=== PATIENT | male | born 1960 | race Caucasian/White ===

== ENCOUNTER 2023-03-09 09:40 | Outpatient (OUT) | payer MEDICARE, MEDICAID, SELFPAY ==
--- NOTE | 2023-03-09 10:47 | CA_ITS ---
Patient Name: WILVER CAPPS MR#: [id number] : 1960 Exam Date: 03/09/2023 Ordering Doctor: DR JULIANO HUNT M.D. ECHOCARDIOGRAM REPORT PROCEDURE: CA ECHO DOPPLER COMPLETE INDICATIONS: Shortness of breath COMPARISON: None. DESCRIPTION: COMPLETE ECHOCARDIOGRAM Real-time transthoracic echocardiography with 2D, M-mode, spectral and color flow Doppler performed. QUALITY: Technical quality was adequate. LEFT VENTRICLE: Normal chamber size. Moderate concentric left ventricular hypertrophy. Global left ventricular systolic function is normal. LV EF: Estimated left ventricular ejection fraction is 55-60% DIASTOLIC: ATRIAL SEPTUM: LEFT ATRIUM: Normal chamber size. RIGHT ATRIUM: Mild dilatation. RIGHT VENTRICLE: Normal chamber size. Normal right ventricular systolic function. TRICUSPID VALVE: Normal mobility and thickness. No stenosis with trivial regurgitation. Unable to assess right-sided pressures due to lack of measurable tricuspid regurgitation. MITRAL VALVE: Normal mobility and thickness. No evidence of mitral valve stenosis. There is no mitral annular calcification. No mitral regurgitation. AORTIC VALVE: Normal trileaflet appearance. No visible sclerosis. Normal leaflet mobility. No evidence of aortic valve stenosis. Trivial aortic regurgitation. AORTIC ROOT: Normal diameter and appearance. PULMONIC VALVE: Normal thickness and mobility. No stenosis. No regurgitation. PERICARDIUM: No evidence of pericardial effusion. IVC: Collapses with inspirations. Normal size. PLEURA: CONCLUSION: 1. Moderate concentric left ventricular hypertrophy with normal systolic function. LVEF is 55 to 60%. 2. Normal right ventricular size and systolic function. 3. No significant valvular dysfunction. 4. Unable to assess right-sided pressures due to lack of measurable tricuspid regurgitation. Adult Echocardiography Procedure Report Left Ventricle LVEDD (3.7 - 5.6 cm): 4.13 cm LVESD (2.2 - 4.0 cm): 2.87 cm LVIVS thickness (0.6 - 1.2 cm): 1.92 cm LVPW thickness (0.5 - 1.0 cm): 1.52 cm e': 0.09 m/s E - e': 6.23 LVOT Max Gradient: 4.94 mm[Hg] LVOT Area (cm2): 1.11 m/s Peak Velocity (LVOT): 1.11 m/s Mean Velocity (LVOT): 0.64 m/s LVOT Diameter 2.39 cm Left Ventricular Ejection Fraction: 55-60 % Left Atrium LA Volume Index (2D A2C): 24.62 ml/m2 Left Atrium Systolic Dimension: 3.82 cm Mitral Valve MV E to A Ratio: 0.80 Mitral Valve A-Wave Peak Velocity: 0.74 m/s Mitral Valve E-Wave Peak Velocity: 0.59 m/s Right Ventricle RV Internal Diastolic Dimension: 3.28 cm Aorta AO Root Diam: 3.71 cm Ascending Ao Diam: 3.58 cm Aortic Valve AoV Area (Peak Colin): 3.58 cm2, 3.58 cm2 AoV Area (VTI): 3.10 cm2, 3.10 cm2 Peak Velocity(Antegrade Flow): 1.39 m/s Peak Gradient(Antegrade Flow): 7.71 mm[Hg] Mean Velocity(Antegrade Flow): 0.90 m/s Mean Gradient(Antegrade Flow): 3.80 mm[Hg] Velocity Time Integral: 28.08 cm Tricuspid Valve Peak Velocity (Regurgitant Flow): 1.41 m/s, 1.42 m/s Pulmonic Valve Peak Velocity: 0.98 m/s Peak Gradient: 3.36 mm[Hg], 4.32 mm[Hg] Right Atrium Right Atrium Systolic Pressure: 73.78 ml, 73.78 ml Dictated by: Juliano Hunt M.D. on 03/10/2023 at 18:39 Approved by: Juliano Hunt M.D. on 03/10/2023 at 18:46
== END 2023-03-09 09:41 | disposition home or self-care (01) ==
LOC: CARD 09:40
PROVIDERS: PCP Family Medicine; Visit Provider Internal Medicine Interventional Cardiology
DX: R06.02 Shortness of breath (principal); I51.7 Cardiomegaly
CPT/HCPCS: 93306

== ENCOUNTER 2023-03-09 10:48 | Outpatient (OUT) | payer MEDICARE, MEDICAID, SELFPAY ==
[2023-03-09 11:18] LABS: Basophils Absolute Auto 0.1 10^3/uL (0.0-0.1); Basophils Percent Auto 0.7 % (0.2-2.0); Eosinophils Absolute Auto 0.2 10^3/uL (0.0-0.7); Eosinophils Percent Auto 1.8 % (0.9-7.0); Hematocrit 46.5 % (42.0-54.0); Hemoglobin 16.1 g/dL (14.0-18.0); Immature Granulocytes Abs Auto 0.03 10^3/uL (0.00-0.03); Immature Granulocytes Pct Auto 0.4 % (0.0-0.5); Lymphocytes Absolute Auto 1.3 10^3/uL (1.2-3.8); Lymphocytes Percent Auto 15.7 % (20.5-60.0); Mean Corpuscular HGB Conc 34.6 g/dL (29.9-35.2); Mean Corpuscular Hemoglobin 33.8 pg (25.9-34.0); Mean Corpuscular Volume 97.7 fL (80.0-94.0); Mean Platelet Volume 9.7 fL (9.5-13.5); Monocytes Absolute Auto 0.4 10^3/uL (0.3-0.8); Monocytes Percent Auto 5.3 % (1.7-12.0); Neutrophils Absolute Auto 6.3 10^3/uL (1.4-6.5); Neutrophils Percent Auto 76.1 % (43.0-75.0); Platelet Count 259 10^3/uL (150-450); Red Blood Count 4.76 10^6/uL (4.70-6.10); Red Cell Distribution Width 13.9 % (11.0-15.0); White Blood Count 8.3 10^3/uL (4.0-11.0)
[2023-03-09 11:49] LABS: Estimated Average Glucose 275 mg/dL; Glycohemoglobin A1C 11.2 % (4.5-6.2)
[2023-03-09 12:18] LABS: Microalbumin Urine Random <1.3 mg/dL (<=30.0)
[2023-03-09 13:01] LABS: Anion Gap 14.1; BUN Creatinine Ratio 13.9; Calcium 9.2 mg/dL (8.5-10.1); Carbon Dioxide 29.4 mmol/L (21.0-32.0); Chloride 98 mmol/L (98-107); Estimated GFR (African America >60 (>=60); Estimated GFR (Non-African Ame 53 (>=60); Glucose 432 mg/dL (74-106); Potassium 3.5 mmol/L (3.5-5.1); Sodium 138 mmol/L (136-145)
[2023-03-09 13:18] LABS: Chol HDL Ratio 2.5; Cholesterol 159 mg/dL (<=200); HDL Cholesterol 63 mg/dL (40-60); Triglycerides 188 mg/dL (<=150); VLDL CHOLESTEROL 37.6 mg/dL
[2023-03-09 13:25] LABS: Prostate Specific Antigen Scrn 0.94 ng/mL (<=4.00)
[2023-03-09 13:31] LABS: Alanine Aminotransferase 21 U/L (16-63); Albumin Globulin Ratio 0.7; Albumin Level 3.3 g/dL (3.4-5.0); Alkaline Phosphatase 165 U/L (46-116); Aspartate Amino Transferase 14 U/L (15-37); Bilirubin Direct 0.3 mg/dL (0.0-0.2); Bilirubin Total 1.6 mg/dL (0.2-1.0); Thyroid Stimulating Hormone 1.493 uIU/mL (0.358-3.740); Total Protein 8.3 g/dL (6.4-8.2)
== END 2023-03-09 10:49 | disposition home or self-care (01) ==
LOC: LAB 10:50
PROVIDERS: PCP Family Medicine; Visit Provider Family Medicine
DX: E11.65 Type 2 diabetes mellitus with hyperglycemia (principal); Z79.899 Other long term (current) drug therapy; E66.01 Morbid (severe) obesity due to excess calories; Z12.5 Encounter for screening for malignant neoplasm of prostate; N18.31 Chronic kidney disease, stage 3a
CPT/HCPCS: 36415; 80048; 80061; 80076; 82043; 82306; 83036; 84443; 85025; G0103

== ENCOUNTER 2024-12-07 12:03 | Outpatient (OUT) | payer MEDICARE, MEDICAID, SELFPAY ==
--- OUTSIDE RECORDS SUMMARY | 2024-11-24 14:00 | XMS_ITS | Encounter Summary ---
Author Organization [facility] Address [address] [place] [address] Care Team Providers Care Beef Pusher Name Role Phone Davion Pritchard MD Unavailable Davion Pritchard MD Primary Care Provider [phone] Reason for Referral * Other Medical (Routine) - AuthorizedSpecialtyDiagnoses / ProceduresReferred By ContactReferred To ContactNeurology Diagnoses Numbness and tingling in right hand Procedures EMG AND NERVE CONDUCTION STUDY Alvino Bryson NP [address] [place] [address] Phone: tel: fax: Lili Buenrostro, [address] [address] Phone: tel: fax: Referral IDStatusReasonStart DateExpiration DateVisits RequestedVisits [id number]/16/20254/ Reason for Visit * ReasonCommentsPain Encounter Details DateTypeDepartmentCare Team (Latest Contact Info)Qqqmfdawuxk01/16/2025 2:00 PM EDTOffice Visit [facility] [address] [place] [address] Alvino Bryson NP [address] [place] [address] Numbness and tingling in right hand Social History Tobacco UseTypesPacks/DayYears UsedDateSmoking Tobacco: NeverSmokeless Tobacco: NeverPHQ-2AnswerDate RecordedPatient Health Questionnaire-2 [id number] and Gender InformationValueDate RecordedSex Assigned at BirthNot on fileLegal ThvHmjw5604/23/2022 6:46 PM EDTGender IdentityNot on fileSexual OrientationNot on filedocumented as of this encounter Progress Notes * Alvino Byrson NP - 11/24/2024 2:00 PM EDT Images from the original note were not included. NAME: Boo Chavira : 1960 HISTORY OF PRESENT ILLNESS: NEW PT Boo Chavira is an 64 y.o. @ male. (NEW PT) DR PRITCHARD REFERRAL. RT WRIST PAIN FOR A WHILE. CONTINUES TO GET WORSE. PAIN IN WRIST. NO PAIN MEDS. DROPPING THINGS, DIFFICULTY GRIPPING. CONSTANT N/T IN THUMB, IF, MF AND RF. HAND GETS COLD. WAKES AT HS. RT HANDED. HERE WITH CAREGIVER. PAST MEDICAL HISTORY: Medical History[1] PAST SURGICAL HISTORY: Surgical History[2] SOCIAL HISTORY: Social History Occupational History Not on file Tobacco Use Smoking status: Never Smokeless tobacco: Never Vaping Use Vaping status: Never Used Substance and Sexual Activity Alcohol use: Not on file Drug use: Not on file Sexual activity: Not on file ALLERGIES: Allergies[3] HOME MEDICATIONS: Current Outpatient Medications Medication Instructions atorvastatin (LIPITOR) 40 mg, Oral, Daily Blood Glucose Monitoring Suppl (Blood Glucose Monitor System) w/Device kit 1 each, Does not apply, Daily clonazePAM (KLONOPIN) 2 mg, Oral, 3 times daily PRN dicyclomine (BENTYL) 20 mg, Oral, 4 times daily PRN FLUoxetine (PROZAC) 60 mg, Oral, Daily fluticasone (Flonase) 50 MCG/ACT nasal spray INSTILL TWO (2) SPRAYS IN EACH NOSTRIL DAILY. SHAKE GENTLY. BEFORE 1ST USE, PRIME PUMP. AFTER USE, CLEAN TIP AND REPLACE CAP glipiZIDE (GLUCOTROL) 20 mg, Oral, 2 times daily Glucose Blood (Blood Glucose Test Strips 333) strip 1 each, In Vitro, Daily Jardiance 25 MG TAKE 1 TABLET (25 MG) BY MOUTH DAILY Lancets Micro Thin 33G misc 1 each, Does not apply, Daily metFORMIN (GLUCOPHAGE) 500 mg, Oral, 2 times daily methocarbamol (ROBAXIN) 750 mg, 3 times daily nabumetone (RELAFEN) 500 mg, Oral, 2 times daily Ozempic, 0.25 or 0.5 MG/DOSE, 2 MG/3ML solution pen-injector INJECT 0.25MG SUBCUTANEOUSLY WEEKLY FOR 4 WEEKS, THEN 0.5MG WEEKLY pantoprazole (PROTONIX) 40 mg, Oral, Daily before breakfast, Do not crush, chew, or split. pioglitazone (ACTOS) 30 mg, Daily pregabalin (LYRICA) 75 mg, Oral, 2 times daily SUMAtriptan (Imitrex) 50 MG tablet TAKE 1/2 TABLET BY MOUTH ONCE IF NEEDED FOR MIGRAINE. MAY REPEATDOSE IN 2 HOURS IF NO RELIEF. *DO NOT EXCEED 2 DOSES IN 24 HOURS* topiramate 50 MG tablet TAKE 1 TABLET BY MOUTH EVERY MORNING AND TAKE 1 TABLET BEFORE BEDTIME Ventolin HFA 108 (90 Base) MCG/ACT inhaler INHALE TWO (2) PUFFS EVERY 4 HOURS NEEDED FOR WHEEZING REVIEW OF SYSTEMS: Review of Systems Constitutional: Negative for fatigue, fever and unexpected weight change. Eyes: Negative for redness and visual disturbance. Gastrointestinal: Negative for abdominal pain. Denies Indigestion Musculoskeletal: See note: Skin: Negative for color change and rash. Neurological: Positive for numbness. Negative for light-headedness. Vitals: There is no height or weight on file to calculate BMI. Tobacco Use: Low Risk (11/24/2024) Patient History Smoking Tobacco Use: Never Smokeless Tobacco Use: Never Passive Exposure: Not on file Alcohol Use: Not At Risk (11/25/2023) [facility] Q1: How often do you have a drink containing alcohol?: Never Q2: How many drinks containing alcohol do you have on a typical day when you are drinking?: Patientdoes not drink Q3: How often do you have six or more drinks on one occasion?: Never PHYSICAL EXAM: Right Hand Exam Tenderness The patient is experiencing tenderness in the palmar area. Muscle Strength Construction Field Engineer: 4/5 Tests Tinel's sign (median nerve): positive Other Erythema: absent Right hand sensation: numbness in thumb, index, middle and ring finger. Pulse: present IMAGING: Procedures Orders Placed This Encounter Procedures EMG AND NERVE CONDUCTION STUDY EMG RT UE with Rahul Jim location Please contact to amber, Nadia [phone] Standing Status: Future Expected Date: 11/24/2024 Expiration Date: 11/24/2025 ASSESSMENT: ICD-10-CM 1. Numbness and tingling in right hand R20.0 EMG AND NERVE CONDUCTION STUDY R20.2 PLAN: I reviewed exam findings with the patient and discussed treatment options, answered questions. I recommend he use a wrist immobilizer for night splinting and have EMG of right upper extremity to evaluate for carpal tunnel syndrome. Follow up with Dr. Islas post EMG. Questions answered in laymen terms at the bedside. The diagnosis, home exercise plan and any ongoing restrictions/ recommendations reviewed. If unable to be reached in office, I recommend evaluation at nearest Emergency Room if any symptoms worsened or new symptoms develop for requiring urgent evaluation. [1] Past Medical History: Diagnosis Date CAD in tanana artery Chronic seasonal allergic rhinitis due to pollen Duodenitis EDMOND (generalized anxiety disorder) Irritable bowel syndrome with diarrhea MDD (major depressive disorder), recurrent episode, mild Memory change Migraine without aura and without status migrainosus, not intractable Mild intermittent asthma, uncomplicated (HCC) Obstructive sleep apnea Pain, joint, knee, left Stage 3a chronic kidney disease (CKD) ([facility]) Type 2 diabetes mellitus with hyperglycemia, without long-term current use of insulin (HCC) Ventricular ectopics [2] Past Surgical History: Procedure Laterality Date CHOLECYSTECTOMY 11/23/2023 [3] No Known Allergies documented in this encounter Plan of Treatment NameTypePriorityAssociated DiagnosesOrder ScheduleEMG AND NERVE CONDUCTION STUDY NeurologyRoutine Numbness and tingling in right hand Expected: 11/24/2024 (Approximate), Expires: 11/24/2025documented as of this encounter Visit Diagnoses Diagnosis Numbness and tingling in right hand Disturbance of skin sensation documented in this encounter Additional Health Concerns AssessmentNoted TimePHQ-9 Depression Total Score: 1:00 PM EST documented as of this encounter Care Teams Team MemberRelationshipSpecialtyStart DateEnd Date Davion Pritchard MD [address] [place] [address] PCP - ACO [facility]03/18/24 Davion Pritchard MD [address] [place] [address] PCP - GeneralFamily Yhbukgpf70/16/25documented as of this encounter
--- OUTSIDE RECORDS SUMMARY | 2024-12-07 12:09 | XMS_ITS | Encounter Summary ---
Author Organization [facility] Address [address] [place] [address] Care Team Providers Care Production Proofreader Name Role Phone Davion Malloy MD Unavailable Davion Malloy MD Primary Care Provider [phone] Encounter Details DateTypeDepartmentCare Team (Latest Contact Info)Qyrgkzalkrp00/16/2025Travel Social History Tobacco UseTypesPacks/DayYears UsedDateSmoking Tobacco: NeverSmokeless Tobacco: NeverPHQ-2AnswerDate RecordedPatient Health Questionnaire-2 [id number] and Gender InformationValueDate RecordedSex Assigned at BirthNot on fileLegal UvgBdud3104/23/2022 6:46 PM EDTGender IdentityNot on fileSexual OrientationNot on filedocumented as of this encounter Plan of Treatment Not on file documented as of this encounter Visit Diagnoses Not on filedocumented in this encounter Additional Health Concerns AssessmentNoted TimePHQ-9 Depression Total Score: 1:00 PM EST documented as of this encounter Care Teams Team MemberRelationshipSpecialtyStart DateEnd Date Davion Malloy MD [address] [place] [address] PCP - [facility]03/18/24 Davion Malloy MD [address] [place] [address] PCP - GeneralFamily Qhmbhwfz57/16/25documented as of this encounter
--- OUTSIDE RECORDS SUMMARY | 2024-12-07 12:09 | XMS_ITS | Encounter Summary ---
Author Organization [facility] Address [address] [facility] [place] [address] Care Team Providers Care Extension Work Instructor Name Role Phone Davion Malloy MD Unavailable Davion Malloy MD Primary Care Provider [phone] Encounter Details DateTypeDepartmentCare Team (Latest Contact Info)Kkkzfodleyi33/16/2025amboo flowsheet [facility] [address] [place] [address] Alvino Bryson, CNC PROGRAMMER [address] [place], [place] [id number] Social History Tobacco UseTypesPacks/DayYears UsedDateSmoking Tobacco: NeverSmokeless Tobacco: NeverPHQ-2AnswerDate RecordedPatient Health Questionnaire-2 [id number] and Gender InformationValueDate RecordedSex Assigned at BirthNot on fileLegal TczBvgr1004/23/2022 6:46 PM EDTGender IdentityNot on fileSexual OrientationNot on filedocumented as of this encounter Plan of Treatment Not on file documented as of this encounter Visit Diagnoses Not on filedocumented in this encounter Additional Health Concerns AssessmentNoted TimePHQ-9 Depression Total Score: 1:00 PM EST documented as of this encounter Care Teams Team MemberRelationshipSpecialtyStart DateEnd Date Davion Malloy MD [address] [place] [address] PCP - [facility]03/18/24 Davion Malloy MD [address] [place] [address] PCP - GeneralFamily Lymvhogo61/16/25documented as of this encounter
--- OUTSIDE RECORDS SUMMARY | 2024-12-07 12:09 | XMS_ITS | Clinical Summary ---
Author Organization [facility] Address [address] [place] [address] Care Team Providers Care Social Service Manager Name Role Phone Davion Malloy MD Unavailable Davion Malloy MD Primary Care Provider [phone] Allergies No known active allergies Medications MedicationSigDispense QuantityRefillsLast FilledStart DateEnd DateStatus methocarbamol (Robaxin) 750 MG tablet Take 750 mg by mouth in the morning and 750 mg in the evening and 750 mg before bedtime.Active pioglitazone (Actos) 30 MG tablet Take 30 mg by mouth DailyActive Lancets Micro Thin 33G [facility] Indications:Type 2 diabetes mellitus with hyperglycemia, without long-term current use of insulin (HCC)1 each Daily 50 each ctive metFORMIN (Glucophage) 500 MG tablet Indications:Type 2 diabetes mellitus with hyperglycemia, without long-term current use of insulin (HCC)TAKE 1 TABLET BY MOUTH TWICE DAILY 60 tablet ctive Additional Information Patient not taking.Reported on 11/24/2024 Jardiance 25 MG Indications:Type 2 diabetes mellitus with hyperglycemia, without long-term current use of insulin (HCC)TAKE 1 TABLET (25 MG) BY MOUTH DAILY 30 tablet 4Active atorvastatin (Lipitor) 40 MG tablet Indications:CAD in cachil dehe arteryTake 1 tablet (40 mg) by mouth Daily 30 tablet 5Active Ventolin HFA 108 (90 Base) MCG/ACT inhaler Indications:Obstructive sleep apneaINHALE TWO (2) PUFFS EVERY 4 HOURS NEEDED FOR WHEEZING 18 g 5Active Ozempic, 0.25 or 0.5 MG/DOSE, 2 MG/3ML solution pen-injector Indications:Type 2 diabetes mellitus with hyperglycemia, without long-term current use of insulin ([facility])INJECT 0.25MG SUBCUTANEOUSLY WEEKLY FOR 4 WEEKS, THEN 0.5MG WEEKLY 3 mL 5Active fluticasone (Flonase) 50 MCG/ACT nasal spray Indications:Seasonal allergic rhinitis due to pollenINSTILL TWO (2) SPRAYS IN EACH NOSTRIL DAILY. SHAKE GENTLY. BEFORE 1ST USE, PRIME PUMP. AFTER USE, CLEAN TIP AND REPLACE CAP 16 g 5Active topiramate 50 MG tablet Indications:Migraine without aura and without status migrainosus, not intractableTAKE 1 TABLET BY MOUTH EVERY MORNING AND TAKE 1 TABLET BEFORE BEDTIME 60 tablet 5Active Blood Glucose Monitoring Suppl (Blood Glucose Monitor System) w/Device kit Indications:Type 2 diabetes mellitus with hyperglycemia, without long-term current use of insulin ([facility])1 each Daily 1 kit 5Active Additional Information Patient taking differently:1 each Does not apply Daily,(No times of day reported), Reported on 11/24/2024 Glucose Blood (Blood Glucose Test Strips 333) strip Indications:Type 2 diabetes mellitus with hyperglycemia, without long-term current use of insulin ([facility])1 each by In Vitro route Daily 50 strip 5Active Additional Information Patient taking differently:1 each In Vitro Daily,(No times of day reported), Reported on 11/24/2024 SUMAtriptan (Imitrex) 50 MG tablet Indications:Migraine without aura and without status migrainosus, not intractableTAKE 1/2 TABLET BY MOUTH ONCE IF NEEDED FOR MIGRAINE. MAY REPEAT DOSE IN 2 HOURS IF NO RELIEF. *DO NOT EXCEED 2 DOSES IN 24 HOURS* 9 tablet 5Active dicyclomine (Bentyl) 20 MG tablet Indications:Irritable bowel syndrome with diarrheaTake 1 tablet (20 mg) by mouth 4 (four) times a day as needed (Abdominal pain) 120 tablet 5Active pantoprazole (Protonix) 40 MG EC tablet Indications:Gastroesophageal reflux disease without esophagitisTake 1 tablet (40 mg) by mouth in the morning. Take before meals. Do not crush, chew, or split. 30 tablet 5Active nabumetone (Relafen) 500 MG tablet Indications:Degeneration of intervertebral disc of lumbar region without discogenic back pain or lower extremity painTake 1 tablet (500 mg) by mouth in the morning and 1 tablet (500 mg) before bedtime. 60 tablet 5Active pregabalin (Lyrica) 75 MG capsule Indications:Herpes zoster without complicationTake 1 capsule (75 mg) by mouth in the morning and 1 capsule (75 mg) before bedtime. 60 capsule 5Active clonazePAM (KlonoPIN) 2 MG tablet Indications:AnxietyTAKE 1 TABLET BY MOUTH 3 TIMES DAILY NEEDED FOR ANXIETY 90 tablet 5Active FLUoxetine (PROzac) 20 MG capsule Indications:Major depressive disorder, recurrent episode, mildTAKE 3 CAPSULES (60 MG) BY MOUTH DAILY 90 capsule 1105Active Additional Information Patient taking differently:60 mg Oral Daily,(No times of day reported), Reported on 11/24/2024 glipiZIDE (Glucotrol) 10 MG tablet Indications:Type 2 diabetes mellitus with hyperglycemia, without long-term current use of insulin (HCC)TAKE TWO (2) TABLETS BY MOUTH TWICE DAILY 120 tablet 1105Active Active Problems ProblemNoted DateDiagnosed DateHerpes zoster without cyjwtvyriuhh06/06/2025 Assessment & Plan (09/14/2024 2:41 PM EDT): Rash consistent with shingles and treat with valtrex. Use prednisone to help clear and lyrica for pain. Encounter for long-term (current) use of hxlwyywtuqn18/06/2025Screening PSA (prostate specific antigen)04/14/2024Seasonal allergic rhinitis due to pollen 04/14/2024 Assessment & Plan (04/14/2024 10:42 AM EST): Start flonase History of colon coywqh7504/14/2024Medicare annual wellness visit, subsequent 01/21/2024 Assessment & Plan (01/21/2024 1:37 PM EST): Reviewed labs. Discussed proper diet and regular aerobic exercise. Need aerobic exercise 5-6 days aweek for 30 minutes at a time. Smaller portions and limit total calories. Colonoscopy every 10 years. Tetanus every 10 years. Advised not to smoke. Bile leak10/ Assessment & Plan (12/08/2023 12:28 PM EDT): Healing well and follow with specialists. Early akmafej5811/04/2023 Assessment & Plan (11/04/2023 11:18 AM EDT): Feels full quickly and develops nausea. Possible side effect from ozempic and stop. Degeneration of intervertebral disc of lumbar region without discogenic back pain or lower extremity pain10/19/2023 Assessment & Plan (07/18/2024 2:05 PM EDT): Problems getting up from sitting and script for raised toilet seat to patient. Assessment & Plan (10/19/2023 2:44 PM EDT): C/o pain and okay to see chiropractor. Gastroesophageal reflux disease without hykmqconcqv99/09/2024 Assessment & Plan (07/18/2024 2:04 PM EDT): Symptoms controlled with medication and continue. Assessment & Plan (04/14/2024 10:41 AM EST): Symptoms controlled with omeprazole and continue. Assessment & Plan (10/19/2023 2:46 PM EDT): Symptoms controlled with omeprazole and continue. Arthralgia of multiple sites07/20/2023Nonalcoholic fatty liver05/06/2023lass 2 severe obesity due to excess calories with serious comorbidity and body mass index (BMI) of35.0 to 35.9 in adult04/09/2023 Assessment & Plan (09/14/2024 2:41 PM EDT): Weight loss indicated. Assessment & Plan (04/14/2024 10:41 AM EST): Weight down 23 pounds from last visit. Bilateral leg edema04/09/2023 Assessment & Plan (04/09/2023 4:01 PM EST): Edema controlled without medication and monitor. Elevate legs PRN. CAD in cachil dehe avbxry2203/24/2023uodenal mthljbl0003/24/2023 Assessment & Plan (12/08/2023 12:28 PM EDT): Healing well and follow with surgeon. Assessment & Plan (07/20/2023 4:02 PM EDT): Symptoms controlled with omeprazole and continue. Assessment & Plan (04/09/2023 4:02 PM EST): Symptoms controlled with omeprazole and continue. Generalized anxiety hfdbzpyq05/13/2024 Assessment & Plan (07/18/2024 2:04 PM EDT): Symptoms worse and increase prozac. Warned will take 2-3 weeks to notice improvement in mood. Use klonopin PRN. Assessment & Plan (04/14/2024 10:42 AM EST): Mood controlled with medication and continue. Use klonopin PRN. Assessment & Plan (10/19/2023 2:44 PM EDT): Mood controlled with medication and continue. Use klonopin PRN. Assessment & Plan (07/20/2023 4:02 PM EDT): Mood controlled with medication and continue. Use klonopin PRN. Assessment & Plan (04/09/2023 4:02 PM EST): Mood controlled with medication and continue. Use klonopin PRN. Irritable bowel syndrome with znajycmp04/13/2024 Assessment & Plan (07/18/2024 2:04 PM EDT): Occasional symptoms and use bentyl PRN. Assessment & Plan (07/20/2023 4:02 PM EDT): Occasional symptoms and use bentyl PRN. Assessment & Plan (04/09/2023 4:02 PM EST): Occasional symptoms and use bentyl PRN. Major depressive disorder, recurrent episode, mild03/24/2023 Assessment & Plan (07/18/2024 2:05 PM EDT): Symptoms worse and increase prozac. Warned will take 2-3 weeks to notice improvement in mood. Assessment & Plan (04/14/2024 10:42 AM EST): Mood controlled with medication and continue. Assessment & Plan (10/19/2023 2:44 PM EDT): Mood controlled with medication and continue. Assessment & Plan (07/20/2023 4:02 PM EDT): Mood controlled with medication and continue. Assessment & Plan (04/09/2023 4:02 PM EST): Mood controlled with medication and continue. Migraine without aura or status agehswlkfjn77/13/2024 Assessment & Plan (07/18/2024 2:05 PM EDT): RICHMOND stable and use imitrex PRN. Assessment & Plan (04/14/2024 10:42 AM EST): RICHMOND stable and use imitrex PRN. Assessment & Plan (10/19/2023 2:45 PM EDT): RICHMOND worse and increase topamax. Use imitrex PRN. Assessment & Plan (07/20/2023 4:02 PM EDT): RICHMOND controlled with topamax and continue. Use imitrex PRN. Assessment & Plan (04/09/2023 4:03 PM EST): RICHMOND controlled with topamax and continue. Use imitrex PRN. Obstructive sleep apnea03/24/2023 Assessment & Plan (04/14/2024 10:42 AM EST): Symptoms controlled with BiPAP and continue nightly. The patient is benefiting from PAP therapy. Assessment & Plan (01/04/2024 10:13 AM EST): Symptoms controlled with BiPAP and continue nightly. The patient is benefiting from PAP therapy. Stage 3a chronic kidney disease (CKD)03/24/2023Type 2 diabetes mellitus with hyperglycemia, without long-term current use of atfrptg5303/24/2023 Assessment & Plan (07/18/2024 2:05 PM EDT): Not checking BS but last A1C 6.2. Stick to ADA diet and limit carbs. Assessment & Plan (04/14/2024 10:42 AM EST): Reports BS improved and due for A1C. Stick to ADA diet and limit carbs. Assessment & Plan (12/08/2023 12:28 PM EDT): Recent A1C 9.1. Stay off ozempic until next visit. Need to monitor BS once a day. Stick to ADA dietand limit carbs. Assessment & Plan (10/19/2023 2:45 PM EDT): Not checking BS. Script for glucometer sent to pharmacy. Check BS once a day. Stick to ADA diet andlimit carbs. Assessment & Plan (07/20/2023 4:03 PM EDT): Not checking BS and due for A1C. Script for glucometer sent to pharmacy. Check BS once a day. Stickto ADA diet and limit carbs. Assessment & Plan (04/09/2023 4:04 PM EST): BS elevated and A1C 11.7. Ozempic increased. Stick to ADA diet and limit carbs. Ventricular xohpmhli12/13/2024 Resolved Problems ProblemNoted DateDiagnosed DateResolved DateFistula of pnjahwhilrr96/11/2024 04/14/2024Generalized abdominal pain/07/2024 Assessment & Plan (11/04/2023 11:18 AM EDT): Severe pain and nausea of unclear etiology. Check labs and CT. Memory loss/07/2024 Assessment & Plan (04/09/2023 4:03 PM EST): Increased forgetfulness and refer to neurology for evaluation. Epigastric pain/11/2023 Assessment & Plan (04/09/2023 4:02 PM EST): Recent pain and check UGI and US gallbladder. Encounters DateTypeDepartmentCare UsmjAuftewbhazw08/27/2025Orders Only [facility] [address] [place] [phone] Alvino Bryson, ORANGE PEEL OPERATOR Numbness and tingling in right hand11/24/2024 2:00 PM EDTOffice Visit [facility] [address] [place] [phone] Alvino Bryson NP Numbness and tingling in right hand11/24/2024amboo flowsheet [facility] [address] [place] [phone] Alvino Bryson, ORANGE PEEL OPERATOR 11/24/20243371Ofudhj46/21/2025Refill [facility] [address] [place] [phone] Davion Malloy MD Major depressive disorder, recurrent episode, mild ; Type 2 diabetes mellitus with hyperglycemia, without long-term current use of insulin (HCC)09/26/2024Refill [facility] [address] [place] [phone] Davion Malloy MD Kqvztgp6009/20/2024Refill [facility] [address] [place] [phone] Davion Malloy MD Herpes zoster without complication; Ohkallu22/07/2025Refill [facility] [address] [place] [phone] Davion Malloy MD Herpes zoster without vjkwvibdmdit59/06/2025 11:15 AM EDTOffice Visit [facility] [address] [place] [address] Davion Malloy MD Herpes zoster without complication (Primary Dx); Class 2 severe obesity due to excess calories with serious comorbidity and body mass index (BMI) of35.0 to 35.9 in adult ([facility]); Gastro-esophageal reflux disease without mfblywubabf02/06/2025amboo flowsheet [facility] [address] [place] [address] Davion Malloy MD from Last 3 Months Family History Medical HistoryRelationNameCommentsNo Known ProblemsFatherNo Known Problems MotherRelationNameStatusCommentsFatherMother Social History Tobacco UseTypesPacks/DayYears UsedDateSmoking Tobacco: NeverSmokeless Tobacco: Never Tobacco Cessation:Counseling Given: Not Answered PHQ-2AnswerDate RecordedPatient Health Questionnaire-2 Rkljt395Sex and Gender InformationValueDate RecordedSex Assigned at BirthNot on fileLegal Sex Male04/23/2022 6:46 PM EDTGender IdentityNot on fileSexual OrientationNot on file Last Filed Vital Signs Vital SignReadingTime TakenCommentsBlood Pvchwpqd474/6408 11:11 AM EDT Sjmla174109/14/2024 11:11 AM IIRXtgrvizpqub00.3 ??C (97.3 ??F)09/14/2024 11:11 AM EDTRespiratory Mrzg658009/14/2024 11:11 AM EDTOxygen Bfujlsckqc09%09/14/2024 11:11 AM EDTInhaled Oxygen Concentration--Uwvwym215 kg (248 lb)09/14/2024 11:11 AM EDT Joayno944.8 cm (5' 10 )09/14/2024 11:11 AM EDTBody Mass Index35.58009/14/2024 11:11 AM EDT Plan of Treatment Health MaintenanceDue DateLast DoneCommentsCT Gdhcknagnday1962FIT-DNA 1962FIT1962FOBT1962 3369Holpahgpoxfxh1962MMR Vaccines (1 of 1 - Standard series)1963DTaP/Tdap/Td Vaccines (1 - Tdap)1969Hepatitis A Vaccines (1 of 2 - Risk 2-dose series)1981Pneumococcal Vaccine: Pediatrics (0 to 5 Years) and At-Risk Patients (6 to 64 Years) (1 of 2 - PCV) 1981Hepatitis B Vaccines (1 of 3 - Risk 3-dose series)2COVID-19 Vaccine (1 - season)2024Influenza Vaccine (#1)2024Diabetes: Hemoglobin A1C5005/26/2024, 05/26/2024, 11/23/2023, Additional history existsMedicare Annual Wellness (AWV)/4Diabetes: Urine Protein Ctxkuhdsr60/17/89843505/26/2024, 05/26/2024, 05/26/2024, Additional history exists Diabetes: Retinopathy Bvpypcxpc21/20/339161/2307Qqvezyivzhe32/11/2027 01/19/2017Colorectal Cancer Oovwbokgj07/11/2027HIB VaccinesAged OutNo longer eligible based on patient's age to complete this topicHPV VaccinesAged OutNo longer eligible based on patient's age to complete this topicIPV VaccinesAged OutNo longer eligible based on patient's age to complete this topicMeningococcal B VaccineAged OutNo longer eligible based on patient's age to complete this topicMeningococcal VaccineAged OutNo longer eligible based on patient's age to complete this topicRotavirus VaccinesAged OutNo longer eligible based on patient's age to complete this topic Procedures Procedure NamePriorityDate/TimeAssociated DiagnosisCommentsMICROALBUMIN / CREATININE URINE ZBXJEPxtmlnn08/17/2025 2:51 PM EDT HEMOGLOBIN M7ZZncshkn12/17/2025 2:51 PM EDT from Last 3 Months or Most Recently Relevant to Health Maintenance Results * Microalbumin / creatinine urine ratio (05/26/2024 2:51 PM EDT)ComponentValue Ref RangeTest MethodAnalysis TimePerformed AtPathologist Signature MICROALBUMIN, URINE<0.70.0 - 1.9 mg/dLPROMEDICAURINE CREAT79.10mg/dLPROMEDICA ALB/CREAT RATIONOT CALCULATED0.0 - 30.0 mg/g creatPROMEDICAComment: Result for Albumin/Creatinine Ratio cannot be reliably calculated because urine albumin and or urine creatinine is below the detection limit of the assay. ?? PERFORMED AT [facility] [address],[place] [address] Specimen (Source)Anatomical Location / LateralityCollection Method / Volume Collection TimeReceived Time05/26/2024 2:51 PM EDT05/26/2024 2:52 PM EDT Narrative Authorizing ProviderResult TypeResult StatusMarc Mellissa RESTREPO URINE ORDERABLES Final ResultPerforming OrganizationAddressCity/State/ZIP CodePhone Number [facility] * (ABNORMAL) Hemoglobin A1c (05/26/2024 2:51 PM EDT)ComponentValueRef RangeTest MethodAnalysis TimePerformed AtPathologist SignatureHEMOGLOBIN A1C6.2(H)4.4 - 5.6 %PROMEDICAComment: NOTE ? ADA Guidelines ? Result ?HgbA1c ?Normal : ? less than 5.7 % ?Prediabetes : ?5.7 % ??to 6.4 % Diabetes : > 6.4 % Use with caution in patients with abnormal hemoglobin variants as the half-life of red blood cells and in vivo glycation rates are affected. AVERAGE KSKWHZA780wn/dLPROMEDICAComment:PERFORMED AT [facility] [address],[place], [place] [address]Tlixmedt (Source)Anatomical Location / LateralityCollection Method / VolumeCollection TimeReceived Time05/26/2024 2:51 PM EDT05/26/2024 2:52 PM EDT Narrative Authorizing ProviderResult TypeResult StatusMarc Mellissa RESTREPO BLOOD ORDERABLES Final ResultPerforming OrganizationAddressCity/State/ZIP CodePhone Number [facility] from Last 3 Months or Most Recently Relevant to [place] [address] Care Teams Team MemberRelationshipSpecialtyStart DateEnd Date Davion Malloy MD [address] [place] [address] PCP - [facility]03/18/24 Davion Malloy MD [address] [place] [address] PCP - [facility]11/24/24
--- OUTSIDE RECORDS SUMMARY | 2024-12-07 12:09 | XMS_ITS | Encounter Summary ---
Author Organization [facility] Address [address] [facility] [place] [address] Care Team Providers Care Dwarf Tree Grower Name Role Phone Davion Malloy MD Unavailable Davion Malloy MD Primary Care Provider [phone] Encounter Details DateTypeDepartmentCare Team (Latest Contact Info)Wtrchbcxdtb71/27/2025Orders Only [facility] [address] [place] [address] Alvino Bryson, WATCH AND CLOCK MAKER AND REPAIRER [address] [place], [place] [phone] Numbness and tingling in right hand Social History Tobacco UseTypesPacks/DayYears UsedDateSmoking Tobacco: NeverSmokeless Tobacco: NeverPHQ-2AnswerDate RecordedPatient Health Questionnaire-2 Nlfvs454Sex and Gender InformationValueDate RecordedSex Assigned at BirthNot on fileLegal MzbScjx9804/23/2022 6:46 PM EDTGender IdentityNot on fileSexual OrientationNot on filedocumented as of this encounter Plan of Treatment Not on file documented as of this encounter Visit Diagnoses Diagnosis Numbness and tingling in right hand Disturbance of skin sensation documented in this encounter Additional Health Concerns AssessmentNoted TimePHQ-9 Depression Total Score: 1:00 PM EST documented as of this encounter Care Teams Team MemberRelationshipSpecialtyStart DateEnd Date Davion Malloy MD [address] [place] [address] PCP - [facility]2/7/25 Davion Malloy MD [address] [place] [phone] [facility]/16/25documented as of this encounter
--- OUTSIDE RECORDS SUMMARY | 2024-12-07 12:09 | XMS_ITS | Clinical Summary ---
Author Organization [facility] Address [address] [place] [address] Care Team Providers Care Quality Management Coordinator Name Role Phone Davion Malloy MD Primary Care Provider [phone] Allergies No known active allergies Medications MedicationSigDispense QuantityRefillsLast FilledStart DateEnd DateStatus rifAXIMin (Xifaxan) 550 mg tablet Take 1 tablet by mouth in the morning, at noon, and at bedtime.Active omeprazole (PriLOSEC) [address] capsule Take 1 capsule by mouth in the morning.Active metFORMIN (Glucophage) 500 mg tablet Take 1 tablet by mouth in the morning and at bedtime.Active glipiZIDE (Glucotrol) 10 mg tablet TAKE ONE (1) TABLET BY MOUTH TWICE DAILYActive FLUoxetine (PROzac) 20 mg tablet Take 1 tablet every day by oral route for 30 days.Active dicyclomine (Bentyl) 20 mg tablet Take 1 tablet by mouth if needed in the morning, at noon, in the evening, and at bedtime.Active clonazePAM (KlonoPIN) 0.5 mg tablet Take 1 tablet twice a day by oral route as needed for 30 days.Active albuterol (Ventolin HFA) 90 mcg/actuation inhaler Inhale 2 puffs every 4 (four) hours if needed.Active clonazePAM (KlonoPIN) 2 mg tablet Take 2 mg by mouth if needed in the morning, at noon, and at bedtime for seizures.Active SUMAtriptan (Imitrex) 50 mg tablet TAKE 1 TABLET BY MOUTH AT ONSET OF HEADACHE, MAY REPEAT DOSE IN 2 HOURS 01/29/2023ctive topiramate (Topamax) 25 mg tablet Take 25 mg by mouth in the morning and at bedtime.01/30/2023ctive Ozempic 2 mg/dose (8 mg/3 mL) pen injector INJECT 2 MG SUBCUTANEOUSLY EVERY WEEK10/27/2023Active Jardiance 25 mg Take 25 mg by mouth in the morning.09/07/2023ctive pioglitazone (Actos) 30 mg tablet Take 30 mg by mouth in the morning.Active atorvastatin (Lipitor) 40 mg tablet Indications:Mixed hyperlipidemiaTake 1 tablet (40 mg) by mouth at bedtime. 90 tablet 5Active furosemide (Lasix) 20 mg tablet Indications:Edema of lower extremityTAKE 1 TABLET (20 MG) BY MOUTH IN THE MORNING. TAKE AN ADDITIONAL TABLET DAILY IF NEEDED FOR INCREASED LEG SWELLING. 90 tablet [id number]/829764/6Active Active Problems ProblemNoted DateDiagnosed DateMedicare annual wellness visit, subsequent 01/21/2024ile leak11/25/2023Fistula of ptrushewasw37/11/2024Hyperglycemia 11/20/2023Early ctdqmpt1211/04/2023Generalized abdominal pain11/04/2023hronic bilateral low back pain without jywhseih41/09/2024rthralgia of multiple sites 07/20/2023Nonalcoholic fatty liver05/06/2023ilateral leg edema04/09/2023 Overview (03/22/2024): Last Assessment & Plan: Edema controlled without medication and monitor. Elevate legs PRN. Memory loss04/09/2023 Overview (03/22/2024): Last Assessment & Plan: Increased forgetfulness and refer to neurology for evaluation. CAD in [place] zeslgd3303/24/2023uodenal wfhjibt0403/24/2023Irritable bowel syndrome with tsjbbepa14/13/2024Major depressive disorder, recurrent episode, mild 03/24/2023Migraine without aura or status zevvnuucwyv71/13/2024Type 2 diabetes mellitus with hyperglycemia, without long-term current use of lifyupr3303/24/2023 Overview (03/22/2024): Last Assessment & Plan: Not checking BS. Script for glucometer sent to pharmacy. Check BS once a day. Stick to ADA diet andlimit carbs. Gastroesophageal reflux disease without pxqzpgichbi84/01/2024 Overview (03/22/2024): Last Assessment & Plan: Symptoms controlled with omeprazole and continue. Generalized anxiety priqdvsm77/01/2024 Overview (03/22/2024): Last Assessment & Plan: Mood controlled with medication and continue. Use klonopin PRN. Stage 3a chronic kidney disease (CKD)4Calf pain10/16/2021ough 10/16/2021yspnea on yppswvna92/07/2022Morbid kcbujih0610/16/2021Ventricular premature ptfxwci7210/16/2021Ventricular premature beats10/16/2021Edema of lower axvcmxvwv28/22/2018Obstructive sleep apnea cbvcftom39/14/2016 Encounters DateTypeDepartmentCare LqtbHcsopthetkn09/21/2025[facility] [place] [address] [place] [address] Blank Rahman CNP Edema of lower extremityfrom Last 3 Months Social History Tobacco UseTypesPacks/DayYears UsedDateSmoking Tobacco: NeverSmokeless Tobacco: Never Tobacco Cessation:Counseling Given: Not Answered [place] Safety & EnvironmentAnswerDate RecordedFear of Current or Ex-PartnerNot on file04/02/2023Emotionally AbusedNot on file04/02/2023hysically AbusedNot on file04/02/2023Sexually AbusedNot on file04/02/2023hysically or Sexually Abused Not on file04/02/2023Sex and Gender InformationValueDate RecordedSex Assigned at BirthNot on fileLegal CohGmqz1308/07/2021 11:12 PM EDTGender IdentityNot on file Sexual OrientationNot on file Last Filed Vital Signs Vital SignReadingTime TakenCommentsBlood Noeawgzg13/62003/22/2024 1:02 PM EST Fhois4200/11/2025 1:02 PM ESTTemperature--Respiratory Rate--Oxygen Exknwctlql32% 03/22/2024 1:02 PM ESTInhaled Oxygen Concentration--Mgswky563 kg (267 lb) 03/22/2024 1:02 PM KMVYwwwoo547.9 cm (6')03/22/2024 1:02 PM ESTBody Mass Index 36.21003/22/2024 1:02 PM EST Plan of Treatment Health MaintenanceDue DateLast DoneCommentsCT Booroyylaomu1962Colonoscopy 2Colorectal Cancer Jenamvhke1962FIT-DNA1962FIT1962 FOBT1962Medicare Annual Wellness (AWV)1962 8539Pksxsbforhlkk1962 Diabetes: Retinopathy Egejccpbd84/17/1972Depression Bmbfgzkfj14/17/1974Adult Trxmmbq1201/26/1984Zoster Vaccines (1 of 2)01/26/2012Pneumococcal Vaccine: Pediatrics (0 to 5 Years) and At-Risk Patients (6 to 64 Years) (2 of 2 - PCV) Diabetes: Hemoglobin A1C/, 07/30/2023 COVID-19 Vaccine (2 - 2024- season)/Influenza Vaccine (#1) /01/2019, 09/27/2016, 10/19/2015, Additional history existsDiabetes: Urine Protein Nmvzyldkw57/, 11/12/2021HIB VaccinesAged OutNo longer eligible based on patient's age to complete this topicHPV VaccinesAged OutNo longer eligible based on patient's age to complete this topicIPV Vaccines Aged OutNo longer eligible based on patient's age to complete this topic Meningococcal B VaccineAged OutNo longer eligible based on patient's age to complete this topicMeningococcal VaccineAged OutNo longer eligible based on patient's age to complete this topicRotavirus VaccinesAged OutNo longer eligible based on patient's age to complete this topic Insurance Advance Directives TypeDate RecordedPatient RepresentativeExplanationAdvance Directives and Living Will03/22/2024 1:04 PM Care Teams Team MemberRelationshipSpecialtyStart DateEnd Date Davion Malloy MD [address] [place] [address] [facility]10/16/21
--- OUTSIDE RECORDS SUMMARY | 2024-12-07 12:09 | XMS_ITS | Clinical Summary ---
Author Organization [facility] Address [id number] [place] [address] Care Team Providers Care Vegetable Washer Name Role Phone Davion Malloy MD Primary Care Provider [phone] Allergies No known active allergies Medications MedicationSigDispense QuantityRefillsLast FilledStart DateEnd DateStatus atorvastatin (LIPITOR) 40 mg tablet Take 1 tablet (40 mg total) by mouth in the morning.Active clonazePAM (KlonoPIN) 2 mg tablet Take 1 tablet (2 mg total) by mouth Three times daily as needed for anxiety. 09/29/2023ctive empagliflozin (JARDIANCE) 25 mg tablet tablet Take 1 tablet (25 mg total) by mouth in the morning.09/07/2023ctive glipiZIDE (GLUCOTROL) 10 mg tablet Take 2 tablets (20 mg total) by mouth in the morning and 2 tablets (20 mg total) in the evening. Take before meals.Active metFORMIN (GLUCOPHAGE) 500 mg tablet Take 1 tablet (500 mg total) by mouth in the morning and 1 tablet (500 mg total) in the evening. Take with meals.Active SUMAtriptan (IMITREX) 50 mg tablet Take 1 tablet (50 mg total) by mouth once as needed for migraine.01/29/2023 Active albuterol (PROVENTIL HFA;VENTOLIN HFA) 90 mcg/actuation inhaler Inhale 2 puffs every 4 (four) hours as needed.11/12/2023ctive dicyclomine (BENTYL) 20 mg tablet Take 1 tablet (20 mg total) by mouth 4 (four) times a day as needed.Active omeprazole (PriLOSEC) 40 mg capsule Take 1 capsule (40 mg total) by mouth every morning before breakfast.09/04/2023 Active acetaminophen (TYLENOL EXTRA STRENGTH) 500 mg tablet Take 2 tablets (1,000 mg total) by mouth every 6 (six) hours as needed for pain. 30 tablet 11/27/2023ctive Active Problems ProblemNoted DateDiagnosed DateBile leak11/25/2023Fistula of gallbladder 11/20/2023uodenal inuklvp9611/20/20231808Snqocyfpgvbju81/11/2024Gastroesophageal reflux disease without ofwlgtpwjzt98/09/2024 Overview (11/20/2023): Last Assessment & Plan: Symptoms controlled with omeprazole and continue. Nonalcoholic fatty liver05/06/2023ilateral leg edema04/09/2023 Overview (11/20/2023): Last Assessment & Plan: Edema controlled without medication and monitor. Elevate legs PRN. Memory loss04/09/2023 Overview (11/20/2023): Last Assessment & Plan: Increased forgetfulness and refer to neurology for evaluation. Generalized anxiety awkagnod51/13/2024 Overview (11/20/2023): Last Assessment & Plan: Mood controlled with medication and continue. Use klonopin PRN. Stage 3a chronic kidney disease (CKD)03/24/2023Type 2 diabetes mellitus with hyperglycemia, without long-term current use of jfwjuae4603/24/2023 Overview (11/20/2023): Last Assessment & Plan: Not checking BS. Script for glucometer sent to pharmacy. Check BS once a day. Stick to ADA diet andlimit carbs. Obstructive sleep apnea epcmcoci62/14/2016 Immunizations No known immunizations Family History Medical HistoryRelationNameCommentsAnesthesia problemsNeg HxRelationNameStatus CommentsFatherAliveMotherDeceased Social History Tobacco UseTypesPacks/DayYears UsedDateSmoking Tobacco: NeverPassive Smoke Exposure: NeverSmokeless Tobacco: Never Tobacco Cessation:Counseling Given: Not Answered Alcohol UseStandard Drinks/WeekCommentsNot Currently0 (1 standard drink = 0.6 oz pure alcohol)[facility] UtilitiesAnswerDate RecordedIn the past 12 months has the [employer], gas, oil, or water [employer] threatened to shut off services in your home?No11/25/2023UDIT-CAnswerDate RecordedQ1: How often do you have a drink containing alcohol?Never11/25/2023Q2: How many drinks containing alcohol do you have on a typical day when you are drinking?Patient does not drink11/25/2023Q3: How often do you have six or more drinks on one occasion?Never11/25/2023RAPARE - TransportationAnswerDate RecordedIn the past 12 months, has lack of transportation kept you from medical appointments or from getting medications?No 11/25/2023In the past 12 months, has lack of transportation kept you from meetings, work, or from getting things needed for daily living?No11/25/2023 Housing InstabilityAnswerDate RecordedAre you worried or concerned that in the next two months you may not have stable housing that you own, rent or stay in as a part of a household?No11/25/2023hildcareAnswerDate RecordedChildcareUnknown 07/21/2018EmploymentAnswerDate UwqbamvcAhvenuslsrBlbykgq71/12/2019Hunger ScreeningAnswerDate RecordedWithin the past 12 months we worried whether our food would run out before we got money to buy more.Never True01/19/2024Within the past 12 months the food we bought just didn't last and we didn't have money to get more.Never True4Purpose - LifeAnswerDate RecordedPurpose and direction in nrsnUzndaul04/11/2021ex and Gender InformationValueDate Recorded Sex Assigned at BirthNot on fileLegal QajDwhq8509/14/2014 11:32 AM EDTGender IdentityNot on fileSexual OrientationNot on file Last Filed Vital Signs Vital SignReadingTime TakenCommentsBlood Tgzftvmr004/9001/19/2024 9:08 AM EST Prdui357701/19/2024 9:08 AM UKELmskfzqylft72.1 ??C (98.8 ??F)01/13/2024 2:05 PM ESTRespiratory Ttgk064803/15/2023 3:00 PM ESTOxygen Clzaqewiqe917%01/13/2024 3:00 PM ESTInhaled Oxygen Concentration--Iupqox437.4 kg (269 lb 12.8 oz)01/19/2024 9:08 AM RWWClhoam833.8 cm (5' 10 )01/19/2024 9:08 AM ESTBody Mass Index38.71 01/19/2024 9:08 AM EST Plan of Treatment Health MaintenanceDue DateLast DoneCommentsDiabetic Ophthalmology Exam1962 Depression Srffgfbke70/17/1974Adult BMI Follow Up Plan01/26/1980Diabetic Foot Exam01/26/1980DTaP,Tdap and Td Vaccines (1 - Tdap)1981Colonoscopy 2007Zoster (Shingles) Vaccine (1 of 2)01/26/2012Influenza Vaccine 10/10/2024dult BMI Eacidgsgj16Tobacco Blbhycbjg45/10/2025 01/19/2024Statin Use: Tmofitkb32 Goals GoalPatient Goal TypeAssociated ProblemsRecent ProgressPatient-Stated?Author home Maya Olsen RN Note: Evaluation of progress towards goal: Patient plans to discharge home with Home Health Care and withassistance from family. Medical Devices ExplantedTypeAreaManufacturerDevice IdentifierShelf Expiration DateModel / Serial / LotStent Moncho 8mm 8.5fr 80mm 194cm .035in Flly Cvr Cth Gw Dlv - [id number] Implanted:Qty: 1 on 11/26/2023 by Rafael Olsen MD at [facility] Explanted:Qty: 1 on 01/13/2024 [facility]entN/A: Bile DuctBOSTON SCIENTIFIC [id number]/23/2025 [id number] / / [id number] Insurance Advance Directives * Full Code (Latest Code Status on File) Date ActivatedDate OrvzdmcpjxoEjotlahv64/16/2024 3:05 AM11/28/2023 2:40 PM * Full Code Date ActivatedDate OuyzhsnpsirAkcgtohu27/11/2024 4:32 PM10 2:28 AM Care Teams Team MemberRelationshipSpecialtyStart DateEnd Date Davion Malloy MD PCP - [facility] Qyphtfnv42/11/24
--- OUTSIDE RECORDS SUMMARY | 2024-12-07 12:16 | XMS_ITS | CCD ---
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 Name Role Phone PHYSICIAN, DEFAULT Unavailable Unavailable PHYSICIAN, DEFAULT Unavailable Unavailable DALILA, JASON Unavailable Unavailable PHYSICIAN, DEFAULT Unavailable Unavailable PHYSICIAN, DEFAULT Unavailable Unavailable DALILA, JASON Unavailable Unavailable NADERER, DR DAVION Baltazar Consulting Unavailable NADERER, DR DAVION Baltazar Primary Care Unavailable NADERER, DR DAVION Baltazar Admitting Unavailable NADERER, DR DAVION Baltazar Attending Unavailable NADERER, DR DAVION Baltazar Consulting Unavailable NADERER, DR DAVION Baltazar Primary Care Unavailable NADERER, DR DAVION Baltazar Admitting Unavailable NADERER, DR DAVION Baltazar Attending Unavailable NADERER, DR DAVION Baltazar Consulting Unavailable NADERER, DR DAVION Baltazar Primary Care Unavailable NADERER, DR DAVION Baltazar Admitting Unavailable NADERER, DR DAVION Baltazar Attending Unavailable NADERER, DR DAVION Baltazar Consulting Unavailable NADERER, DR DAVION Baltazar Primary Care Unavailable NADERER, DR DAVION Baltazar Admitting Unavailable NADERER, DR DAVION Baltazar Attending Unavailable NADERER, DR DAVION Baltazar Consulting Unavailable NADERER, DR DAVION Baltazar Primary Care Unavailable NADERER, DR DAVION Baltazar Admitting Unavailable NADERER, DR DAVION Baltazar Attending Unavailable DESIRAE ESPINOZA Consulting Unavailable Naderer Davion DANG Primary Care Provider CHARLENE SMYTH Admitting Unavailable CHARLENE SMYTH Attending Unavailable ANAHY COOPER Referring Unavailable DAVION PRITCHARD Primary Care Unavailable [facility] Consulting Unavailable ERMELINDA PRETTY Referring Unavailable DAVION PRITCHARD Primary Care Unavailable CHARLENE SMYTH Referring Unavailable DAVION PRITCHARD Primary Care Unavailable DAVION PRITCHARD Referring Unavailable FRANCHESKA, DAVION Primary Care Unavailable RAFAEL PATRICIA S Admitting Unavailable RAFAEL PATRICIA S Attending Unavailable NADEREGuille, DAVION Primary Care Unavailable DAVIE FERNÁNDEZ Attending Unavailable NADEREGuille, DAVION Primary Care Unavailable NADALINAR, DAVION Referring Unavailable NADERER, DAVION Primary Care Unavailable KAYLA HENSON Attending Unavailable FRANCHESKA, DAVION Referring Unavailable NADERER, DAVION Primary Care Unavailable KAYLA HENSON Attending Unavailable NADALINAR, DAVION Referring Unavailable NADERER, DAVION Primary Care Unavailable Lili VOSS, Lynnette Unavailable BRUNO GASPAR Attending Unavailable Davion Pritchard MD Primary Care Provider [phone] Davion Pritchard MD Primary Care Provider Davion Pritchard MD Unavailable DAVION PRITCHARD Referring Unavailable FRANCHESKA, DAVION Primary Care Unavailable FRANCHESKA, DAVION Primary Care Unavailable FRANCHESKA, DAVION Referring Unavailable FRANCHESKA, DAVION Primary Care Unavailable NADANTHONY, DAVION Referring Unavailable NADERER, DAVION Primary Care Unavailable NADERER, DAVION Primary Care Unavailable DILEEP MTZ Attending Unavailable JOSE MARIA BLOCK Admitting Unavailable ANAHY COOPER Consulting Unavailable ANAHY COOPER Attending Unavailable ANAHY COOPER Referring Unavailable FRANCHESKA, DAVION Primary Care Unavailable GARCÍA FAY Attending Unavailable GARCÍA FAY Referring Unavailable FRANCHESKA, DAVION Primary Care Unavailable MOLLY VIDAL Attending Unavailable FRANCHESKA, DAVION Primary Care Unavailable FRANCHESKA, DAVION Referring Unavailable NADERER, DAVION Primary Care Unavailable Michelet IGLESIAS Attending Unavailable FRANCHESKA, DAVION Referring Unavailable Davion Pritchard MD Primary Care Provider [phone] Davion Pritchard MD Attending Provider Davion Pritchard MD Unavailable Davion Pritchard MD Primary Care Provider DAVION PRITCHARD Attending Unavailable FRANCHESKA, DAVION Attending Unavailable DAVION PRITCHARD Attending Unavailable DAVION PRITCHARD Attending Unavailable DAVION PRITCHARD Attending Unavailable NÉSTOR HINSON Attending Unavailable PRASANNA ALBERTO Attending Unavailable Reji Palacios DO Attending Provider Medications Current Medications MedicationDrug Class(es)DatesSig (Normalized)Sig (Original)acetaminophen 500 mg oral tablet (10 sources)Start: 17-95-6711yxtf 2 tablets by mouth every six hours as needed for painacetaminophen (TYLENOL EXTRA STRENGTH) 500 mg tablet Take 2 tablets (1,000 mg total) by mouth every6 (six) hours as needed for pain. 30 tablet 11/27/2023 ActiveStart: 32-56-6252qzvw 1000 mg by mouth every six hours1,000 mg, oral, Every 6 hours scheduled, First dose on Thu11/25/23 at 0600Start: 11-20-2023 End: 25-80-6514bbjj 1 tablet by mouth every six hours as needed for pain and headache and lbzyp084 mg, oral, Every 6 hours PRN, mild pain - pain scale 1-3, headaches, temperature greater than 38C, Temperature greater than 38.3 C, Starting on Thu11/20/23 at 1639, [Warning: Total Acetaminophennot to exceed more than 4 grams (4000 mg) in 24 hours]acetaminophen 325 mg / oxyCODONE hydrochloride 5 mg oral tablet (3 sources)Opioid AgonistStart: 12-17-2023 End: 26-20-8019rswi 1 tablet by mouth four times daily as needed for pain oxyCODONE-acetaminophen (PERCOCET) 5-325 mg per tablet TAKE 1 TABLET BY MOUTH FOUR TIMES DAILY NEEDED FOR SEVERE PAIN OR MODERATE PAIN FOR UP TO 7 DAYS 12/17/2023 01/19/2024 Discontinued (Therapy completed)[id number] 200 actuat albuterol 0.09 mg/actuat metered dose inhaler (20 sources)beta2-Adrenergic AgonistStart: 75-17-1030txyb 1 puff(s) by inhalation every four hours as neededStart: 29-48-0708djeu 2 puff(s) by inhalation every four hours as needed for wheezingVentolin HFA 108 (90 Base) MCG/ACT inhaler Indications: Obstructive sleep apnea INHALE TWO (2) PUFFS EVERY 4 HOURS NEEDED FOR WHEEZING 18 g 11 05/20/2024 ActiveStart: 99-25-5731vrtp 2 puff(s) by inhalation every four hours as neededalbuterol (PROVENTIL HFA;VENTOLIN HFA) 90 mcg/actuation inhaler Inhale 2 puffs every 4 (four) hoursas needed. 11/12/2023 ActiveStart: 11-12-2023 End: 86-07-0852pvnv 2 puff(s) by inhalation every four hours for wheezing albuterol HFA 90 mcg/act inhaler Indications: Obstructive sleep apnea Inhale 2 puffs every 4 (four)hours if needed for wheezing 18 g 3 02/01/2024 Activetake 2 puff(s) by inhalation every four hours for wheezingalbuterol HFA 90 mcg/act inhaler Inhale 2 puffs every 4 (four) hours if needed for wheezing Active amoxicillin 875 mg / clavulanate 125 mg oral tablet (2 sources)Penicillin-class AntibacterialStart: 11-27-2023 End: 25-59-9919reiw 1 tablet by mouth once in the morningamoxicillin-pot clavulanate (AUGMENTIN) 875-125 mg per tablet Take 1 tablet by mouth in the morningand 1 tablet before bedtime. Do all this for 5 days. 10 tablet 11/27/2023 12/02/2023 Activeatorvastatin 40 mg oral tablet (20 sources)HMG-CoA Reductase InhibitorStart: 11-25-2023 End: 51-23-7051ryip 1 tablet by mouth once dailyBlood Glucose Monitoring Suppl (Blood Glucose Monitor System) w/Device kit (20 sources)Start: 25-52-4352Wqltn Glucose Monitoring Suppl (Blood Glucose Monitor System) w/Device kit Indications: Type 2 diabetes mellitus with hyperglycemia, without long-term current use of insulin ([facility]) 1 each Daily 1 kit 06/30/2024 ActiveStart: 77-20-7603Bhqrw Glucose Monitoring Suppl (Blood Glucose Monitor System) w/Device kit Indications: Type 2 diabetes mellitus with hyperglycemia, without long-term current use of insulin ([facility]) 1 each Daily 1 kit 06/30/2024 ActiveStart: 51-23-8409Afhwh Glucose Monitoring Suppl (Blood Glucose Monitor System) w/Device kit Indications: Type 2 diabetes mellitus with hyperglycemia, without long-term current use of insulin ([facility]) 1 each Daily 1 kit 10/19/2023 ActiveStart: 07-20-2023 End: 30-98-2347Lxqzt Glucose Monitoring Suppl (Blood Glucose Monitor System) w/Device kit Indications: Type 2 diabetes mellitus with hyperglycemia, without long-term current use of insulin ([facility]) 1 each Daily 1 kit 07/20/2023 10/19/2023 Discontinued (Reorder)Start: 02-92-6671Nggju Glucose Monitoring Suppl (Blood Glucose Monitor System) w/Device kit Indications: Type 2 diabetes mellitus with hyperglycemia, without long-term current use of insulin ([facility]) 1 each Daily 1 kit 07/20/2023 Igksnl103 ml calcium gluconate 20 mg/ml injection (3 sources)Start: 30-25-8649irwayxl gluconate 3,000 mg in sodium chloride 0.9 % 100 mL IVPB (2 sources)Start: 75-78-7837Lgcxw: 36-84-2917uvewlco gluconate 4,000 mg in sodium chloride 0.9 % 250 mL IVPB (1 source)Start: 60-33-9465rcqVALDOcqb 2000 mg injection (1 source)Cephalosporin AntibacterialStart: 73-53-5270rkxh 2000 mg intravenously every twenty-four hours2,000 mg, intravenous, at 100 mL/hr, Administer over 30 Minutes, Every 24 hours, First dose on Thu11/22/23 at 1300, Look-alike/sound-alike medication - verify indication for use. Do not co-administer with calcium-containing solutions such as Lactated Ringers., Indication: Intra-abdominalcefTRIAXone (ROCEPHIN) 2,000 mg in sodium chloride 0.9 % 50 mL IVPB (1 source)Start: 70-64-3310zcny 2000 mg intravenously every twenty-four hours 2,000 mg, intravenous, at 140 mL/hr, Administer over 30 Minutes, Every 24 hours, First dose on Thu11/25/23 at 0900, Look-alike/sound-alike medication - verify indication for use. Do not co-administer with calcium-containing solutions such as Lactated Ringers., Indication: Intra-abdominalclonazePAM 2 mg oral tablet (20 sources)BenzodiazepineStart: 11-09-2024 End: 56-74-8917shyk 1 tablet by mouth four times daily as needed for painStart: 07-30-2023 End: 24-83-0050gusd 1 tablet by mouth three times daily as needed for anxiety clonazePAM (KlonoPIN) 2 MG tablet Indications: Anxiety TAKE 1 TABLET BY MOUTH 3 TIMES DAILY NEEDED FOR ANXIETY 90 tablet 1 09/27/2024 Activedicyclomine hydrochloride 20 mg oral tablet (20 sources)AnticholinergicStart: 12-28-2023 End: 49-90-2403gqqq 1 tablet by mouth four times daily as needed for pain dicyclomine (Bentyl) 20 MG tablet Indications: Irritable bowel syndrome with diarrhea Take 1 tablet(20 mg) by mouth 4 (four) times a day as needed (Abdominal pain) 120 tablet 3 07/18/2024 Activeempagliflozin 25 mg oral tablet (20 sources)Sodium-Glucose Cotransporter 2 InhibitorStart: 09-07-2023 End: 63-37-7253xcas 1 tablet by mouth once dailyFLUoxetine 20 mg oral capsule (20 sources)Serotonin Reuptake InhibitorStart: 14-20-1885yrfh 3 capsules by mouth once dailyStart: 41-51-4886kzun 3 capsules by mouth once dailyFLUoxetine (PROzac) 20 MG capsule Indications: Major depressive disorder, recurrent episode, mild Take 3 capsules (60 mg) by mouth Daily 90 capsule 3 07/18/2024 ActiveStart: 07-18-2024 End: 80-46-1658lftb 1 capsule by mouth once dailyFLUoxetine (PROzac) 40 MG capsule Indications: Major depressive disorder, recurrent episode, mild (HCC) (CMS/HCC) Take 1 capsule (40 mg) by mouth Daily 90 capsule 3 07/18/2024 07/18/2024 Discontinued(Reorder)Start: 40-07-9718xily 20 mg by mouth once daily 20 mg, oral, Daily, First dose on Thu11/25/23 at 0900, Look-alike/sound-alike medication - verify indication for use. End: 81-11-9130fmqh 1 tablet by mouth in the morningFLUoxetine (PROzac) 20 MG tablet Take 1 tablet (20 mg total) by mouth in the morning. 11/25/2023 Dis continued (Therapy completed)fluticasone propionate 0.05 mg/actuat metered dose nasal spray (20 sources)CorticosteroidStart: 34-66-7598nnyy 1 spray(s) nasal route once dailyStart: 43-09-0261ofgk 2 spray(s) nasal route once dailyfluticasone (Flonase) 50 MCG/ACT nasal spray Indications: Seasonal allergic rhinitis due to pollen INSTILL TWO (2) SPRAYS IN EACH NOSTRIL DAILY. SHAKE GENTLY. BEFORE 1ST USE, PRIME PUMP. AFTER USE, CLEAN TIP AND REPLACE CAP 16 g 11 06/13/2024 Active Start: 89-23-3073wgbc 2 spray(s) nasal route once dailyfluticasone (Flonase) 50 MCG/ACT nasal spray Indications: Seasonal allergic rhinitis due to pollen A dminister 2 sprays into each nostril Daily Shake gently. Before first use, prime pump. After use, clean tip and replace cap. 16 g 2 04/14/2024 Active End: 59-63-4843yiij 2 spray(s) nasal route once dailyfluticasone (FLONASE) 50 mcg/actuation nasal spray Administer 2 sprays into each nostril daily. 11/09 Discontinuedfurosemide 40 mg oral tablet (8 sources)Loop DiureticStart: 10-16-2021 End: 99-49-7856fvno 1 tablet by mouth once dailyfurosemide (LASIX) 40 mg tablet Indications: edema Take 1 tablet (40 mg total) by mouth daily Indications: visible water retention. 10/16/2021 02/21/2024 ActiveglipiZIDE 10 mg oral tablet (20 sources)SulfonylureaStart: 34-68-9053eokq 2 tablets by mouth twice daily Start: 60-97-3499jrit 2 tablets by mouth twice dailyglipiZIDE (Glucotrol) 10 MG tablet Indications: Type 2 diabetes mellitus with hyperglycemia, without long- term current use of insulin (HCC) TAKE TWO (2) TABLETS BY MOUTH TWICE DAILY 120 tablet 10 11/30/2023 Activetake 1 tablet by mouth in the morning, then take 1 tablet by mouth before mealtimeglipiZIDE (GLUCOTROL) 10 mg tablet Take 1 tablet (10 mg total) by mouth in the morning and 1 tablet(10 mg total) in the evening. Take before meals. Suspendedglucagon (rdna) 1 mg injection (2 sources)Antihypoglycemic AgentStart: 51-31-7997wzqpksu 0.4 mg/mg oral gel (5 sources)Start: 69-54-3614Tkgbo: 51-83-5023Wkojn: .5 ml HYDROmorphone hydrochloride 1 mg/ml prefilled syringe (1 source)Opioid AgonistStart: 75-77-6947ovvn 0.5 mg intravenously every three hours as needed3 ml insulin glargine 100 unt/ml pen injector (2 sources)Insulin AnalogStart: Units, subcutaneous, 2 times daily, First dose on Thu11/25/23 at 0900, Only hold for blood sugar less than 40 regardless of dietary status. Call MD if held. Do NOT mix with other insulins. Notifyprescriber if blood glucose greater than 400 mg/dL. Look-alike/sound-alike medication - verify indication for use. Prime with 2 units of insulin prior to administration. Basal (long acting) insulin for subcutaneous administration only. Do not mix with any other insulin. Pre-filled pens stable 28 days at room temperature.Start: Units, subcutaneous, Daily, First dose on Thu11/21/23 at 1300, Look-alike/sound-alike medication - verify indication for use. Prime with 2 units of insulin prior to administration. Basal (long acting) insulin for subcutaneous administration only. Do not mix with any other insulin. Pre-filled pens stable 28 days at room temperature.3 ml insulin lispro 100 unt/ml pen injector (4 sources)Insulin AnalogStart: 59-93-3961edvxlq 400 mg by subcutaneous injection three times daily at mealtime, then inject 2 [IU] by subcutaneous injection 15 minutes after mealtime1-5 Units, subcutaneous, 3 times daily with meals, First dose on Thu11/27/23 at 0800, Daytime hyperglycemia dosing. For blood glucose 151-200 mg/dL, give 1 unit. For blood glucose 201-250 mg/dL, give 2 units. For blood glucose 251-300 mg/dL, give 3 units. For blood glucose 301- 350 mg/dL, give 4 units. For blood glucose 351-400 mg/dL, give 5 units. Give even if NPO or meals skipped. Do NOT give more often than every 4 hours when NPO. Notify prescriber if blood glucose greater than 400 mg/dL. Loo k-alike/sound-alike medication - verify indication for use. Prime with 2 units of insulin prior to administration. Prandial/supplemental Insulin. Pre-filled pens stable 28 days at room temperature. Insulin lispro should be administered within 15 minutes before or immediately after a meal.Start: 39-20-7912bklxwu 400 mg by subcutaneous injection once daily, then inject 2 [IU] by subcutaneous injection 15minutes after mealtime1-4 Units, subcutaneous, Nightly, First dose on Gauri 11/26/23 at 2200, Bedtime hyperglycemia dosing.For blood glucose 201-250 mg/dL, give 1 unit. For blood glucose 251-300 mg/dL, give 2 units. For blood glucose 301-350 mg/dL, give 3 units. For blood glucose 351-400 mg/dL, give 4 units. Give even ifNPO or meals skipped. Do NOT give more often than every 4 hours when NPO. Notify prescriber if blood glucose greater than 400 mg/dL. Look-alike/sound-alike medication - verify indication for use. Prime with 2 units of insulin prior to administration. Prandial/supplemental Insulin. Pre- filled pens stable 28 days at room temperature. Insulin lispro should be administered within 15 minutes before orimmediately after a meal.Start: 11-25-2023 End: 90-57-5809idclbp 2-16 [IU] by subcutaneous injection every six hours2-16 Units, subcutaneous, Every 6 hours, First dose on Thu11/25/23 at 0315, Daytime hyperglycemia dosing. For blood glucose 151-180mg/dL, give 2 units. For blood glucose 181-210mg/dL, give 4 units. For blood glucose 211-240mg/dL, give 6 units. For blood glucose 241-270mg/dL, give 8 units. For blood glucose 271- 300mg/dL, give 10 units. For blood glucose 301-350mg/dL, give 12 units For blood glucose 351-400mg/dL, give 16 units For blood glucose >400 call MD Give even if NPO or meals skipped. Do NOT give more often then every 4 hours when NPO. Look-alike/sound-alike medication - verify indication for use. Prime with 2 units of insulin prior to administration. Prandial/supplemental Insulin.Pre- filled pens stable 28 days at room temperature. Insulin lispro should be administered within 15minutes before or immediately after a meal.Start: 94-45-8995swpdpm 450 mg by subcutaneous injection four times daily at mealtime, then inject 2 [IU] by subcutaneous injection 15 minutes after mealtime3-18 Units, subcutaneous, 4 times daily with meals and nightly, First dose on Thu11/20/23 at 1800,Daytime hyperglycemia dosing. For blood glucose 151-200 mg/dL, give 3 units. For blood glucose 201-250 mg/dL, give 6 units. For blood glucose 251-300 mg/dL, give 9 units. For blood glucose 301-350 mg/dL, give 12 units. For blood glucose 351-400 mg/dL, give 15 units. For blood glucose 401-450 mg/dL, give 18 units. Give even if NPO or meals skipped. Do NOT give more often then every 4 hours when NPO. Notify prescriber if blood glucose greater than 450 mg/dL. Look-alike/sound-alike medication - verify indication for use. Prime with 2 units of insulin prior to administration. Prandial/supplemental Insulin. Pre- filled pens stable 28 days at room temperature. Insulin lispro should be administeredwithin 15 minutes before or immediately after a meal.100 ml magnesium sulfate 40 mg/ml injection (4 sources)Start: ,000 mg, intravenous, at 25 mL/hr, Administer over 120 Minutes, As needed, Magnesium level 1.7 to 1.9 mg/dL, or Ionized Magnesium level 0.45 to 0.5 mmol/L., Starting on Thu11/25/23 at 0257, Recheckmagnesium level 4 hours after infusion complete. With each magnesium result continue the replacement orders as needed.Start: 20-84-5071hlrumykektchq 750 mg oral tablet (20 sources)Muscle RelaxantStart: 77-33-4204qbvz 1 tablet by mouth three times daily End: 12-57-3969tbls 1 tablet by mouth in the morning, then take 1 tablet by mouth in the evening, then take 1 tablet by mouth at bedtimemethocarbamol (Robaxin) 750 MG tablet Take 750 mg by mouth in the morning and 750 mg in the eveningand 750 mg before bedtime. Activemetoprolol tartrate 25 mg oral tablet (6 sources)beta-Adrenergic BlockerStart: 11-20-2023 End: 18-69-7112aucf 25 mg by mouth twice daily25 mg, oral, 2 times daily, First dose on Thu11/25/23 at 0900, Look-alike/sound-alike medication -verify indication for use.100 ml metroNIDAZOLE 5 mg/ml injection (2 sources)Nitroimidazole AntimicrobialStart: 63-65-4677vlmc 500 mg intravenously every twelve whoey819 mg, intravenous, at 100 mL/hr, Administer over 60 Minutes, Every 12 hours, First dose on Thu11/25/23 at 0400, Look-alike/sound-alike medication - verify indication for use., Indication: Intra-abdominal1 ml morphine sulfate 2 mg/ml prefilled syringe (1 source)Opioid AgonistStart: 31-15-1372adqr 2 mg intravenously every four hours as needed for pain2 mg, intravenous, Every 4 hours PRN, PIPP 12 or greater - moderate to severe pain, Starting on Thu11/23/23 at 1126, Look-alike/sound-alike medication - verify indication for use.nabumetone 500 mg oral tablet (20 sources)Nonsteroidal Anti-inflammatory DrugStart: 25-47-6326mwqr 1 tablet by mouth twice daily End: 36-77-0252ytfq 1 tablet by mouth in the morningnabumetone (Relafen) 500 MG tablet Take 500 mg by mouth in the morning and 500 mg before bedtime. Active oxyCODONE (1 source)Opioid AgonistStart: 50-93-8764qnib 1 tablet by mouth every six hours as needed for painoxyCODONE (ROXICODONE) immediate release tablet 5 mgOZEMPIC 2 mg/dose (8 mg/3 mL) pen injector (6 sources) End: 16-50-4823ulbbcz 2 mg by subcutaneous injection every weekOZEMPIC 2 mg/dose (8 mg/3 mL) pen injector Inject 2 mg under the skin once a week. 01/19/2024 Discontinued (Therapy completed)inject 2 mg by subcutaneous injection every week OZEMPIC 2 mg/dose (8 mg/3 mL) pen injector Inject 2 mg under the skin once a week. Activeinject 2 mg by subcutaneous injection every weekOZEMPIC 2 mg/dose (8 mg/3 mL) pen injector Inject 2 mg under the skin once a week.Ozempic, 0.25 or 0.5 MG/DOSE, 2 MG/3ML solution pen-injector (12 sources)Start: 81-36-7320dgtoio 0.25 mg by subcutaneous injection every week, then inject 0.5 mg by subcutaneous injection every weekOzempic, 0.25 or 0.5 MG/DOSE, 2 MG/3ML solution pen-injector Indications: Type 2 diabetes mellitus with hyperglycemia, without long-term current use of insulin ([facility]) INJECT 0.25MG SUBCUTANEOUSLY WEEKLY FOR 4 WEEKS, THEN 0.5MG WEEKLY 3 mL 06/08/2024 ActiveStart: 82-90-1847sawhpe 0.25 mg by subcutaneous injection every week, then inject 0.5 mg by subcutaneous injection every weekOzempic, 0.25 or 0.5 MG/DOSE, 2 MG/3ML solution pen-injector Indications: Type 2 diabetes mellitus with hyperglycemia, without long-term current use of insulin (CMS/[facility]) INJECT 0.25MG SUBCUTANEOUSLY WEEKLY FOR 4 WEEKS, THEN 0.5MG WEEKLY 3 mL 06/08/2024 ActiveOzempic, 2 MG/DOSE, 8 MG/3ML solution pen-injector (15 sources)Start: 07-30-2023 End: 88-21-0498zcbnaj 2 mg by subcutaneous injection every weekOzempic, 2 MG/DOSE, 8 MG/3ML solution pen-injector Indications: Type 2 diabetes mellitus with hyperglycemia, without long-term current use of insulin ([facility]) INJECT 2 MG SUBCUTANEOUSLY EVERY WEEK 3mL 07/30/2023 01/21/2024 DiscontinuedStart: 85-37-7682noexbq 2 mg by subcutaneous injection every weekOzempic, 2 MG/DOSE, 8 MG/3ML solution pen-injector Indications: Type 2 diabetes mellitus with hyperg lycemia, without long-term current use of insulin ([facility]) INJECT 2 MG SUBCUTANEOUSLY EVERY WEEK 3mL 07/30/2023 Activepantoprazole 40 mg delayed release oral tablet (17 sources)Proton Pump InhibitorStart: 94-30-8583wmjj 1 tablet by mouth once dailyStart: 74-61-392833 mg, oral, 2 times daily, First dose (after last modification) on Thu11/27/23 at 1615, Look-alike/sound-alike medication - verify indication for use. If patient is receiving enteral feeding, consider alternative PPI or continue IV pantoprazole until the delayed-release tablet can be taken orally, Indication: GERDStart: 11-25-2023 End: 38-24-265784 mg, oral, Daily, First dose on Thu11/25/23 at 0600, Look-alike/sound-alike medication - verify indication for use. If patient is receiving enteral feeding, consider alternative PPI or continue IVpantoprazole until the delayed-release tablet can be taken orally, Indication: GERDStart: 01-71-775607 mg, intravenous, Every 24 hours scheduled, First dose on Thu11/22/23 at 1300, Look-alike/sound-alike medication - verify indication for use., Indication: Other (JEISON)pioglitazone 30 mg oral tablet (20 sources)Peroxisome Proliferator Receptor alpha Agonist, Peroxisome Proliferator Receptor gamma Agonist, ThiazolidinedioneStart: 75-81-4242xboo 1 tablet by mouth once dailyPotassium Chloride (2 sources)Start: 68-54-2107gvlrqjhbo chloride (K-TAB,KLOR-CON) CR tablet 30-40 mEqStart: 97-49-5799xqnkijkmg chloride (K-TAB,KLOR-CON) CR tablet 30-50 mEq predniSONE 50 mg oral tablet (4 sources)Start: 09-14-2024 End: 98-40-9185xlhh 1 tablet by mouth once dailypredniSONE (Deltasone) 50 MG tablet Indications: Herpes zoster without complication Take 1 tablet (50 mg) by mouth Daily for 6 days 6 tablet 09/14/2024 09/20/2024 Activepregabalin 75 mg oral capsule (11 sources)Start: 86-30-1943sreq 1 capsule by mouth twice daily0.25 mg, 0.5 mg dose 1.5 ml semaglutide 1.34 mg/ml pen injector (14 sources)Start: 48-25-9364Pbryr: 14-12-6478vnsrodlcxlu (Ozempic, 0.25 or 0.5 MG/DOSE,) 2 MG/1.5ML solution pen-injector Indications: Type 2 diabetes mellitus with hyperglycemia, without long-term current use of insulin ([facility]) 0.25 mg SC weekly x 4 weeks, then 0.5 mg weekly 1 each 5 01/21/2024 Racduh972 ml sodium chloride 9 mg/ml prefilled syringe (16 sources)Start: mL, intravenous, Every 12 hours scheduled, First dose on Thu11/25/23 at 0900Start: mL, intravenous, As needed, line care, before and after each intermittent use, Starting on Thu11/25/23 at 0255 Start: 11-25-2023 End: 73-38-4645rtdv 100 mL intravenously every kvdt551 mL/hr, intravenous, Continuous, Starting on Thu11/25/23 at 0315, For 1 dayStart: 04-58-4144swgf 20 mL intravenously every hour as xzgjug55 mL/hr, intravenous, Continuous PRN, to maintain patency of lines, Starting on Thu11/25/23 at 0255Start: 11-22-2023 End: 22-86-9666662 mL, intravenous, at 1,500 mL/hr, Administer over 20 Minutes, Once, On Thu11/22/23 at 1230, For1 doseStart: 11-22-2023 End: 00-51-4454amdw 75 mL intravenously every hour75 mL/hr, intravenous, Continuous, Starting on Thu11/24/23 at 1000, For 1 dayStart: 11-20-2023 End: 30-37-4560nbrt 50 mL intravenously every hour50 mL/hr, intravenous, Continuous, Starting on Thu11/21/23 at 1045, For 1 dayStart: 38-98-3386Iahvu: 11-20-2023 End: 69-24-5307rbvk 125 mL intravenously every ruik572 mL/hr, intravenous, Continuous, Starting on Thu11/20/23 at 1405, For 1 dayStart: 11-20-2023 End: ,000 mL, intravenous, at 984 mL/hr, Administer over 61 Minutes, Once, On Thu11/20/23 at 1245, For1 dosesodium phosphate 20 mmol in sodium chloride 0.9 % 250 mL IVPB (2 sources)Start: 82-91-4398qyzdyq phosphate 20 mmol in sodium chloride 0.9 % 250 mL IVPBStart: 47-93-1008egdyvv phosphate 20 mmol in sodium chloride 0.9 % 250 mL IVPBSUMAtriptan 50 mg oral tablet (20 sources)Serotonin-1b and Serotonin-1d Receptor AgonistStart: 05-47-0196hoxv 0.5 tablet by mouth every two hoursStart: 02-27-9161nbpb 0.5 tablet by mouth once, then take 1 tablet by mouth every two hours, then take 2 tablets by mouth every twenty-four hoursSUMAtriptan (Imitrex) 50 MG tablet Indications: Migraine without aura and without status migrainosus, not intractable TAKE 1/2 TABLET BY MOUTH ONCE IF NEEDED FOR MIGRAINE. MAY REPEAT DOSE IN 2 HOURS IF NO RELIEF. *DO NOT EXCEED 2 DOSES IN 24 HOURS* 9 tablet 11 07/05/2024 ActiveStart: 01-27-2024 SUMAtriptan (Imitrex) 50 MG tablet Indications: Migraine without aura and without status migrainosus, not intractable (CMS/HCC) Take 0.5 tablets (25 mg) by mouth 1 (one) time if needed for migraine May repeat dose once in 2 hours if no relief. Do not exceed 2 doses in 24 hours. 9 tablet 5 01/27/2024 ActiveStart: 03-03-2023 End: 17-04-4947Tocau: 06-19-0905zdom 1 tablet by mouth once as neededSUMAtriptan (IMITREX) 50 mg tablet Take 1 tablet (50 mg total) by mouth once as needed for migraine. 01/29/2023 Activetopiramate 50 mg oral tablet (20 sources)Start: 06-74-2053dexw 1 tablet by mouth twice dailyStart: 06-13-2024 take 1 tablet by mouth once daily in the morningtopiramate 50 MG tablet Indications: Migraine without aura and without status migrainosus, not intra ctable TAKE 1 TABLET BY MOUTH EVERY MORNING AND TAKE 1 TABLET BEFORE BEDTIME 60 tablet 11 06/13/2024 ActiveStart: 39-49-7591fyxw 25 mg by mouth twice daily25 mg, oral, 2 times daily, First dose on Thu11/25/23 at 0900, Look-alike/sound-alike medication -verify indication for use.Start: 10-19-2023 End: 51-90-5779tlru 1 tablet by mouth in the morningtopiramate 50 MG tablet Indications: Migraine without aura and without status migrainosus, not intra ctable (CMS/HCC) Take 50 mg by mouth in the morning and 50 mg before bedtime. 60 tablet 5 01/04/2024 ActiveStart: 03-03-2023 End: 46-47-6546wtvb 1 tablet by mouth twice dailytopiramate (Topamax) 25 MG tablet Indications: Migraine without aura and without status migrainosus, not intractable (CMS/HCC) TAKE 1 TABLET BY MOUTH 2 TIMES DAILY 60 tablet 10 03/03/2023 10/19/2023 Discontinued (Reorder) End: 11-34-0909kltu 2 tablets by mouth in the morning, then take 2 tablets by mouth at bedtimetopiramate (TOPAMAX) 25 mg tablet Take 2 tablets (50 mg total) by mouth in the morning and 2 tablets (50 mg total) before bedtime. 11/25/2023 Discontinued (Dose adjustment)traMADol hydrochloride 50 mg oral tablet (1 source)Opioid AgonistStart: 41-98-2532kkgh 1 tablet by mouth every six hours as needed for painvalACYclovir 1000 mg oral tablet (4 sources)Herpesvirus Nucleoside Analog DNA Polymerase Inhibitor, Herpes Simplex Virus Nucleoside Analog DNA Polymerase Inhibitor, Herpes Zoster Virus Nucleoside Analog DNA Polymerase InhibitorStart: 09-14-2024 End: 72-63-7913nkuz 1 tablet by mouth in the morning, then take 1 tablet by mouth in the evening, then take 1 tablet by mouth at bedtimevalACYclovir (Valtrex) 1 g tablet Indications: Herpes zoster without complication Take 1 tablet (1,000 mg) by mouth in the morning and 1 tablet (1,000 mg) in the evening and 1 tablet (1,000 mg) before bedtime. Do all this for 7 days. 21 tablet 09/14/2024 09/21/2024 Active Completed/Discontinued Medications MedicationDrug Class(es)DatesSig (Normalized)Sig (Original)calcium carbonate 500 mg chewable tablet (1 source)Start: 11-20-2023 End: 09-46-1490717 mg, oral, Once, On Thu11/20/23 at 1040, For 1 dose, Ordered as elemental calcium. 200 mg elemental calcium = 500 mg calcium carbonatecalcium chloride 0.0014 meq/ml / potassium chloride 0.004 meq/ml / sodium chloride 0.103 meq/ml / sodium lactate 0.028 meq/ml injectable solution (1 source)Start: 11-26-2023 End: 94-76-5241ivld 2 mL intravenously every hour20 mL/hr, intravenous, Continuous, Starting on Gauri 11/26/23 at 1015, Pre-op, If fluid restriction is not indicated, infuse at a rate up to 5 mL/kg/hr not to exceed the total replacement volume (2 ml/kg/hr) from the time NPO status was initiated. cyclobenzaprine hydrochloride 10 mg oral tablet (5 sources)Muscle RelaxantStart: 10-04-2023 End: 03-75-3848xyqz 1 tablet by mouth twice daily as needed for muscle spasms cyclobenzaprine (FLEXERIL) 10 mg tablet Take 1 tablet (10 mg total) by mouth 2 (two) times a day asneeded for muscle spasms. 10 tablet 10/04/2023 12/08/2023 Discontinued (Therapy completed)famotidine 20 mg oral tablet (1 source)Histamine-2 Receptor AntagonistStart: 11-20-2023 End: 62-15-3510suvk 20 mg by mouth once20 mg, oral, Once, On Thu11/20/23 at 1040, For 1 doseibuprofen 800 mg oral tablet (3 sources)Nonsteroidal Anti-inflammatory DrugStart: 10-04-2023 End: 81-32-5597bkcv 1 tablet by mouth every six hours as needed for pain ibuprofen (MOTRIN) 800 mg tablet Take 1 tablet (800 mg total) by mouth every 6 (six) hours as needed for pain. 30 tablet 10/04/2023 11/25/2023 Discontinued (Therapy completed)indocyanine green (IC-GREEN) injection 5 mg (1 source)Start: 11-23-2023 End: mg, intravenous, Once, On 11/23/23 at 1315, For 1 dose, Pre-opinsulin, regular, human 100 unt/ml injectable solution (1 source)InsulinStart: 11-20-2023 End: 75-20-793495 Units, intravenous, Once, On Thu11/20/23 at 1245, For 1 dose, Look-alike/sound-alike medication- verify indication for use. Prandial/supplemental insulin. Stable for 28 days at room temperature.metFORMIN hydrochloride 500 mg oral tablet (20 sources)BiguanideStart: 12-28-2023 End: 11-26-5635qhkk 1 tablet by mouth twice dailyMetformin 500 mg tablet Discontinued 500 MG PO Twice daily November 09, 2024 12:00am November 10, 2024 12:24pmmetoclopramide 5 mg oral tablet (5 sources)Dopamine-2 Receptor AntagonistStart: 11-20-2023 End: 73-96-4382amsr 10 mg by mouth four times daily10 mg, oral, 4 times daily, First dose on Thu11/20/23 at 1800 End: 05-21-6236rqhzkkiheoulkb (REGLAN) 10 mg tablet Take 1 tablet (10 mg total) by mouth in the morning and 1 tablet (10 mg total) at noon and 1 tablet (10 mg total) in the evening and 1 tablet (10 mg total) beforebedtime. 11/25/2023 Discontinued (Therapy completed)2 ml midazolam 1 mg/ml cartridge (1 source)BenzodiazepineStart: 11-26-2023 End: mg, intravenous, As needed, anxiety, Starting on Gauri 11/26/23 at 1009, Pre-op, May repeat in 10 minutes, if needed, if original midazolam (VERSED) ineffective, Indication: Other, Indication: anxietyomeprazole 40 mg delayed release oral capsule (20 sources)Proton Pump InhibitorStart: 07-05-2024 End: 85-18-0498snpw 1 capsule by mouth before mealtimeomeprazole (PriLOSEC) [address] capsule Indications: Irritable bowel syndrome with diarrhea Take 1 capsule (40 mg) by mouth in the morning. Take before meals. Do not crush or chew. 60 capsule 07/05/2024 07/18/2024 DiscontinuedStart: 63-96-8733snoq 1 capsule by mouth twice dailyomeprazole (PriLOSEC) [address] capsule Indications: Irritable bowel syndrome with diarrhea TAKE ONE(1) CAPSULE BY MOUTH TWICE DAILY 60 capsule 09/04/2023 ActiveStart: 63-94-4518aomc 1 capsule by mouth once daily before breakfastomeprazole (PriLOSEC) 40 mg capsule Take 1 capsule (40 mg total) by mouth every morning before breakfast. 09/04/2023 Active End: 96-29-1107nkrw 2 capsules by mouth once daily before breakfastomeprazole (PriLOSEC) 20 mg capsule Take 2 capsules (40 mg total) by mouth every morning before breakfast. 11/25/2023 Discontinued (Dose adjustment)take 1 capsule by mouth once daily before breakfastomeprazole (PriLOSEC) 20 mg capsule Take 1 capsule (20 mg total) by mouth every morning before breakfast. Suspended2 ml ondansetron 2 mg/ml injection (3 sources)Serotonin-3 Receptor AntagonistStart: 11-26-2023 End: mg, intravenous, Once as needed, nausea, Starting on Gauri 11/26/23 at 1150, For 1 dose, PACU (only), Administer over 2-5 minutes.Start: 53-26-6530dxks 4 mg intravenously every six hours as needed for nausea and vomiting4 mg, intravenous, Every 6 hours PRN, nausea, vomiting, Starting on Thu11/25/23 at 0302, Administer over 2-5 minutes.piperacillin 4000 mg / tazobactam 500 mg injection (1 source)Penicillin-class Antibacterial, beta Lactamase InhibitorStart: 11-20-2023 End: .5 g, intravenous, at 200 mL/hr, Administer over 0.5 Hours, Once, On Thu11/20/23 at 1405, For 1 dose, Indication: Nosocomial intra-abdominalrifAXIMin 550 mg oral tablet (3 sources)Rifamycin Antibacterial End: 75-23-3724ktvo 1 tablet by mouth every eight hoursrifAXIMin (XIFAXAN) 550 mg tablet Take 1 tablet (550 mg total) by mouth every 8 (eight) hours. 11/24 Discontinued (Therapy completed) Problems Active Problems Problem ClassificationProblemDateDocumented DateEpisodic/Chronic Administrative/social admission (2 sources)Other reduced mobility; Translations: [Impaired mobility]Onset: 020038-16-4694XdxpniovEwojghb disorders (20 sources)Anxiety; Translations: [Anxiety disorder, unspecified]Onset: 456706-02-5085GvvaknxGvlwwpj tract disease (20 sources)Leakage of bile; Translations: [Disease of biliary tract, unspecified]Onset: 11-20-2023 Resolved: 897700-45-9460AgxbmctScltnyn dysrhythmias (20 sources)Ventricular arrhythmia; Translations: [Ventricular premature depolarization]Onset: 622701-47-2948CbdpjtkJlprzuw kidney disease (20 sources)Chronic kidney disease stage 3A ; Translations: [Stage 3a chronic kidney disease (CKD)]Onset: 720824-11-7595AucfnsdTfpxsoz kidney disease (2 sources)Chronic kidney disease; Translations: [CHRONIC KIDNEY DISEASE STAGE 3A]Onset: 17-80-2396Tofyynop atherosclerosis and other heart disease (20 sources)Coronary arteriosclerosis; Translations: [Atherosclerotic heart disease of pam[place]key coronary artery without angina pectoris]Onset: 03-24-2023 17-01-4027VajbssaZwzukohf mellitus with complications (20 sources)Type 2 diabetes mellitus with hyperglycemia; Translations: [Type 2 diabetes mellitus with diabetic chronic kidney disease]Onset: 31-51-1884Nqfwyll Disorders of lipid metabolism (2 sources)Mixed hyperlipidemia; Translations: [Mixed hyperlipidemia]Onset: 72-67-1198CehcocsBplloqefmk disorders (20 sources)Gastroesophageal reflux disease without esophagitis; Translations: [Gastro-esophageal reflux disease without esophagitis]Onset: 10-19-2023 80-49-5294ZcyggezEkpwmdbs; including migraine (20 sources)Migraine without aura; Translations: [Migraine without aura, not intractable, without status migrainosus]Onset: hronic Immunity disorders (2 sources)Secondary immune deficiency disorder; Translations: [Immunodeficiency due to conditions classified elsewhere ([facility])]20-72-2012DeasaosTnmtjyx and fatigue (2 sources)Weakness; Translations: [Asthenia]Onset: 040152-02-0280Vwdvxmhz Mood disorders (20 sources)Recurrent major depressive episodes, mild ; Translations: [Major depressive disorder, recurrent, mild]Onset: 144385-04-9480UvqaeqqUavppxp (1 source)Onychomycosis; Translations: [Tinea unguium]49-63-1539GdygvllnPkpax aftercare (2 sources)Other detention (current) drug therapy; Translations: [[facility] CURRENT DRUG THERAPY]Onset: 48-27-7786LzdmkcksGmlan and unspecified benign neoplasm (20 sources)History of polyp of colon; Translations: [History of colon polyps] Onset: 118212-66-6901TvppmivpRmcou circulatory disease (1 source)Raynaud's phenomenon; Translations: [Raynaud's syndrome without gangrene]83-47-8237EemcpdbXhlkb circulatory disease (2 sources)Other hypotension; Translations: [Other hypotension]Onset: 03-22-2024 EpisodicOther connective tissue disease (1 source)Inflammatory neuropathy ; Translations: [Neuralgia and neuritis, unspecified]11-29-2548CxcbqghnAghvl disorders of stomach and duodenum (20 sources)Duodenal fistula; 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] Onset: 896645-81-0534EvaxratwQnzcv gastrointestinal disorders (20 sources)Irritable bowel syndrome with diarrhea; Translations: [Irritable bowel syndrome with diarrhea]Onset: 851044-43-5431MmlxrdbUyqke gastrointestinal disorders (4 sources)Diarrhea due to drug; Translations: [Toxic gastroenteritis and colitis]56-14-0512SjyptchnVnosm liver diseases (20 sources)Non-alcoholic fatty liver; Translations: [Fatty (change of) liver, not elsewhere classified]Onset: 282698-99-0099PuuklvuDhxoc liver diseases (17 sources)Non-alcoholic fatty liver disease without non-alcoholic steatohepatitis; Translations: [Fatty (change of) liver, not elsewhere classified]Onset: 479563-11-3295DmlpjxlLlecp nervous system disorders (6 sources)Carpal tunnel syndrome of right wrist; Translations: [Carpal tunnel syndrome, right upper limb]ChronicOther nervous system disorders (2 sources)Polyneuropathy; Translations: [Polyneuropathy, unspecified]12-01-2024 ChronicOther nervous system disorders (4 sources)Paresthesia of hand ; Translations: [Anesthesia of skin]11-24-2024 EpisodicOther non-traumatic joint disorders (20 sources)Multiple joint pain; Translations: [Pain in unspecified joint]Onset: 198295-75-8696GapliznnCtoty nutritional; endocrine; and metabolic disorders (2 sources)Morbid (severe) obesity due to excess calories; Translations: [MORBID SEVERE OBES D/T EXCESS FLO]Onset: 69-06-2620IqciyodDsnbg nutritional; endocrine; and metabolic disorders (20 sources)Obesity caused by energy imbalance; Translations: [Morbid (severe) obesity due to excess calories]Onset: 178224-91-2573ItunbkxAwwlo nutritional; endocrine; and metabolic disorders (17 sources)Severe obesity; Translations: [Class 3 severe obesity due to excess calories with body mass index (BMI) of 40.0 to 44.9 in adult, unspecified whether serious comorbidity present ([facility])]Onset: hronic Other nutritional; endocrine; and metabolic disorders (1 source)Other obesity due to excess calories; Translations: [Other obesity due to excess calories]Onset: 96-28-4616LjnajolFidce nutritional; endocrine; and metabolic disorders (1 source)Body mass index (BMI) 40.0-44.9, adult; Translations: [Body mass index (BMI) 40.0-44.9, adult]Onset: 51-65-9105VykjhkxGstei skin disorders (1 source)Dystrophia unguium; Translations: [Nail dystrophy]78-95-8841Rjfikbxm Other upper respiratory disease (20 sources)Allergic rhinitis due to pollen; Translations: [Allergic rhinitis due to pollen]Onset: 893787-97-9642UerrvntQwrmtgac codes; unclassified (20 sources)Obstructive sleep apnea syndrome; Translations: [Obstructive sleep apnea (adult) (pediatric)]Onset: 223456-09-3969ObbgqhgCjcysugd codes; unclassified (20 sources)Bilateral lower limb edema; Translations: [Localized edema]Onset: 456597-66-8741JcvrboqcFsxszamx codes; unclassified (20 sources)Early satiety; Translations: [Early satiety]Onset: 11-04-2023 97-88-2005DjfvjlcdUlboqgmp codes; unclassified (1 source)Other amnesia; Translations: [Other amnesia]Onset: 34-87-1963Ftlscrki Residual codes; unclassified (1 source)Acquired absence of other specified parts of digestive tract; Translations: [Acquired absence of other specified parts of digestive tract] Onset: 96-00-7664JwmpudhkDodcusga codes; unclassified (2 sources)Localized edema; Translations: [Localized edema]Onset: 10-16-2021 EpisodicSpondylosis; intervertebral disc disorders; other back problems (16 sources)Degeneration of lumbar intervertebral disc; Translations: [Degeneration of intervertebral disc of lumbar region without discogenic back pain or lower extremity pain]Onset: 407535-46-3494ZrehjtrPapfjxurlyrr (1 source)Bile leakOnset: 56-91-3382Xmggpocukklm (1 source)Post-opOnset: 72-31-5054Eutfejepcchh (1 source)POST-OP VISITOnset: 52-92-2468Htvmqhtjsuel (1 source)Obesity, class 1; Translations: [Obesity, class 1]Onset: 05-26-2024 Unclassified (1 source)Obesity, class 3; Translations: [Obesity, class 3]Onset: 11-20-2023 Unclassified (1 source)Back Pain, Shoulder PainOnset: 01-38-3368Kyqnztekltmb (1 source)G56.01 - Carpal tunnel syndrome, right upper limbViral infection (15 sources)Herpes zoster; Translations: [Zoster without complications]Onset: 395552-63-4917Zmhdkvny Past or Other Problems Problem ClassificationProblemDateDocumented DateEpisodic/ChronicAbdominal pain (20 sources)Generalized abdominal pain; Translations: [Generalized abdominal pain]Onset: 08-19-2021 Resolved: 94-20-9276JkosrocqLbsgcrku mellitus without complication (10 sources)Hyperglycemia; Translations: [Hyperglycemia, unspecified]Onset: 695867-58-3671KqwewtdiJcwspohry and duodenitis (9 sources)Duodenitis; Translations: [Duodenitis without bleeding]Onset: 799765-92-1183GxdutxgaXkis disorders (20 sources)Mood disordersOnset: 403099-72-1710Djsbu aftercare (17 sources)Long-term current use of drug therapy; Translations: [Other intermediate designer (current) drug therapy]Onset: 892877-86-6380OncuxqeoBmnsq disorders of stomach and duodenum (1 source)Fistula of stomach and duodenum; 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]Onset: 98-84-2965RrzyycorKdnti screening for suspected conditions (not mental disorders or infectious disease) (20 sources)Encounter for screening for malignant neoplasm of prostate; Translations: [Patient encounter status]Onset: 477718-75-5296Hrygxjxs Residual codes; unclassified (20 sources)Amnesia; Translations: [Other amnesia]Onset: 04-09-2023 Resolved: 430500-59-0983EvumvisyRihtmpotscq; intervertebral disc disorders; other back problems (20 sources)Chronic low back pain; Translations: [Chronic bilateral low back pain without sciatica]Onset: 683967-78-7489ZsebfweqGjiuykbesjew (2 sources)Patient encounter occouy20-13-0491 Results Test NameValueInterpretationReference RangeFacilityPatient Letter FTMCon 74-97-7941Yjdemul Letter FTMCPatient Letter [facility] July 21, 2024 [address] [facility] [address] [place] [id number] : 1960 Dear Jefry, Thank you for choosing [facility] for your healthcare needs. This letter will confirm your consultation appointment with Dr Michelet Iglesias on Thursday, August 03, 2024 at 3:40pm. Our office is located at [address] [place] [address] [address], [place] [address]. Please bring your insurance cards and photo ID to the visit. If you have any questions or need to reschedule, please call our office at [phone]. Sincerely, [facility] CenterNormalWhite HospitalBASIC METABOLIC PANLon 28-26-3650Gouua gap [Moles/Vol]11 mmol/LNormal5-15ProPomerene Hospitalca Adventist Health TulareComment on above:Performed By: #### BMP, 27538-2, LIVR, CBCA, 3016-3, HA1C, 2857-1 ####[facility] ([id number])[address] [facility], [address], [place] [address]Kmfpqyh [Mass/Vol]9.1 mg/dLNormal8.5-10.5PEast Liverpool City HospitalComment on above:Performed By: #### BMP, 86468-3, LIVR, CBCA, 3016-3, HA1C, 2857-1 ####[facility] ([id number])[address], [address], [place] [address]Ikdfozze [Moles/Vol]105 mmol/OIcmskg50-434EiyEfkyhfThe Hospital At Westlake Medical CenterComment on above:Performed By: #### BMP, 07502-3, LIVR, CBCA, 3016-3, HA1C, 2857-1 ####[facility] ([id number])[address], [address] [place] [address]HJ0 [Moles/Vol]26 mmol/MAhvjog09-45PzxFsqmfbEast [facility] City Hospital Comment on above:Performed By: #### BMP, 55669-6, LIVR, CBCA, 3016-3, HA1C, 2857-1 ####[facility] ([id number])[address] [place] [address]Outiopmdoj [Mass/Vol]1.14 mg/dLNormal0.60-1.30Harrison Community HospitalComment on above:Result Comment: METHOD TRACEABLE TO IDWI STANDARDPerformed By: #### BMP, 10456-6, LIVR, CBCA, 3016-3, HA1C, 2857-1 ####[facility] ([id number])[address] [address] [place] [address]GTG/1.73 sq M.predicted among non-blacks MDRD (S/P/Bld) [Vol rate/Area]73 mL/min/{1.73_m2}Normal>59ProThe Hospital At Westlake Medical CenterComment on above:Result Comment: Reported eGFR is based on the CKD-EPI 2020 equation that does not use a race coefficient.Performed By: #### BMP, 42989-9, LIVR, CBCA, 3016-3, HA1C, 2857-1 ####[facility] ([id number])[address], [address] [place], [place] [address]Mjwxdyn [Mass/Vol]116 mg/vVIlic95-63SlnVpfqwnThe Hospital At Westlake Medical CenterComment on above:Performed By: #### BMP, 98101-4, LIVR, CBCA, 3016-3, HA1C, 2857-1 ####[facility] ([id number])[address], [address] [place] [address]Wtelzdxmr [Moles/Vol]3.8 mmol/LNormal3.5-5.0ProThe Hospital At Westlake Medical CenterComment on above:Performed By: #### BMP, 63233-8, LIVR, CBCA, 3016-3, HA1C, 2856-1 ####[facility] ([id number])[address], [address] [place] [address]Jwyjco [Moles/Vol]142 mmol/IHoknur137-258MvfDankaf Fremont HospitalComment on above:Performed By: #### BMP, 67445-8, LIVR, CBCA, 3016-3, HA1C, 285- ####[facility] ([id number])[address], [address] [facility]TO[facility], [place] [address]Iwmz nitrogen [Mass/Vol]22 mg/dLNormal5-27ProThe Hospital At Westlake Medical CenterComment on above:Performed By: #### BMP, 30767-8, LIVR, CBCA, 3016-3, HA1C, 285-1 ####[facility] ([id number])[address], [address], [place] [address]YHX AND AUTO DIFFon 56-48-0069GZBCEMCM BASOPHIL0.0 X10E9/L Normal0.0-0.2PEast Liverpool City HospitalComment on above:Performed By: #### BMP, 26988-3, LIVR, CBCA, 3016-3, HA1C, 2857-1 ####[facility] ( [id number])[address], [address], [place] [address]UJFNMZOL NEUTROPHIL3.7 X10E9/LNormal1.5-6.6ProThe [facility]lake Medical CenterComment on above:Performed By: #### BMP, 38592-6, LIVR, CBCA, 3016-3, HA1C, 2857-1 ####[facility] ([id number])[address], [address], [place] [address]Pfnyyubjx/100 WBC (Bld)0.7 %NormalProThe Hospital At Westlake Medical CenterComment on above:Performed By: #### BMP, 23464-4, LIVR, CBCA, 3016-3, HA1C, 2857- ####[facility] ([id number])[address] [place] [address] 44[address]Jzzoujhgmls (Bld) [#/Vol] 0.2 10*3/uLNormal0.0-0.4ProThe Hospital At Westlake Medical CenterComment on above:Performed By: #### BMP, 64989-8, LIVR, CBCA, 3016-3, HA1C, 285- ####[facility] ([id number])[address] [address], [place] [address]Rsyijikzzbt/100 WBC (Bld)3.4 %NormalProThe Hospital At Westlake Medical CenterComment on above:Performed By: #### BMP, 03097-5, LIVR, CBCA, 3016-3, HA1C, 2857-1 ####[facility] ([id number])[address] [address] [place], [place] [address]Zveiyrjiunq distribution width (RBC) [Ratio]14.3 %Pllqfg98.5-15.0[facility] Comment on above:Performed By: #### BMP, 91992-5, LIVR, CBCA, 3016-3, HA1C, 2857-1 ####[facility] ([id number])[address] [place] [address] 729[address]Rfrwddvlls (Bld) [Volume fraction]46.0 %Cjkyuu86-39SacIkyxtxThe Hospital At Westlake Medical CenterComment on above:Performed By: #### BMP, 75280-7, LIVR, CBCA, 3016-3, HA1C, 2857-1 ####[facility] ([id number])[address], [address] [place] [address] 55472Cojryxubip (Bld) [Mass/Vol]15.7 g/dLNormal 13.0-17.0[facility] HospitalComment on above:Performed By: #### BMP, 62663-3, LIVR, CBCA, 3016-3, HA1C, 2857-1 ####[facility] ( [id number])[address] [address] [place] [address] 46832Cofxfbysxae (Bld) [#/Vol]2.0 10*3/uLNormal1.0-3.5PEast Liverpool City HospitalComment on above:Performed By: #### BMP, 88954-4, LIVR, CBCA, 3016-3, HA1C, 2857-1 ####[facility] ([id number])[address] [address] [place] [address] 16524Abmxhrlnovc/100 WBC (Bld)30.9 %NormalProThe Hospital At Westlake Medical CenterComment on above:Performed By: #### BMP, 85678-0, LIVR, CBCA, 3016-3, HA1C, 2857-1 ####[facility] ([id number])[address] [address] [place] [address] 01622NOW (RBC) [Entitic mass] 33.4 rrYeqoyy46-25DcrOysbjbThe Hospital At Westlake Medical CenterComment on above:Performed By: #### BMP, 99995-8, LIVR, CBCA, 3016-3, HA1C, 2857-1 ####[facility] ([id number])[address], [address] [place] [address] 370[address]AVGO (RBC) [Mass/Vol]34.1 g/hZHycgua22-15HnkQajagd [facility]remont HospitalComment on above:Performed By: #### BMP, 87759-0, LIVR, CBCA, 3016-3, HA1C, 2857-1 ####[facility] ([id number])[address], [address] [place] [address]74EUL (RBC) [Entitic vol]98 wGNrcazf03-223ObnZhjcas [facility]remont HospitalComment on above:Performed By: #### BMP, 62280-8, LIVR, CBCA, 3016-3, HA1C, 2857-1 ####[facility] ( [id number])[address], [address] [place] [address] 38711Dkeruqwzw (Bld) [#/Vol]0.4 10*3/uLNormal0-0.9[facility] HospitalComment on above:Performed By: #### BMP, 12801-6, LIVR, CBCA, 3016-3, HA1C, 2857-1 ####[facility] ([id number])[address], [address] [place] [address] 65299Hxoephtrx/100 WBC (Bld)6.3 %NormalProThe Hospital At Westlake Medical CenterComment on above:Performed By: #### BMP, 29002- 1, LIVR, CBCA, 3016-3, HA1C, 2857-1 ####[facility] ( [id number])[address], [address] [place] [address] 01659Tepeqybbzpq/100 WBC (Bld) 58.7 %NormalProThe Hospital At West[facility] Medical CenterComment on above:Performed By: #### BMP, 46411-3, LIVR, CBCA, 3016-3, HA1C, 2857-1 ####[facility] ( [id number])[address], [address] [place] [address] 91120Raljncxj mean volume (Bld) [Entitic vol]8.4 fLNormal7-12PPrairieville Family Hospitalica Adventist Health TulareComment on above: Performed By: #### BMP, 84881-4, LIVR, CBCA, 3016-3, HA1C, 2857-1 ####[facility] ([id number])[address], [address] [place] [address]168 Platelets (Bld) [#/Vol]183 10*3/zYNbpjuy653-889OumEmunyl [facility]remont HospitalComment on above:Performed By: #### BMP, 47010-0, LIVR, CBCA, 3016-3, HA1C, 2857-1 ####[facility] ([id number])[address], [address] [place] [address] 69849LXY COUNT4.69 X10E12/LNormal4.10-5.70[facility] HospitalComment on above:Performed By: #### BMP, 57563-8, LIVR, CBCA, 3016-3, HA1C, 2857-1 ####[facility] ([id number])[address], [address] [place] [address] 47246MTI (Bld) [#/Vol]6.3 10*3/uLNormal4.0-11.0[facility] Comment on above:Performed By: #### BMP, 13552-5, LIVR, CBCA, 3016-3, HA1C, 2857-1 ####[facility] ([id number])[address] [place] [address] 614[address]RTS A1C (GLYCO-HGB)on 35-06-4058Dbdxlfo [Mass/Vol]131 mg/dL NormalProThe Hospital At Westlake Medical CenterComment on above:Performed By: #### BMP, 97916- 1, LIVR, CBCA, 3016-3, HA1C, 2857-1 ####[facility] ( [id number])[address] [address] [place] [address] 12962JkY8f (Bld) [Mass fraction] 6.2 %High4.4-5.6[facility] HospitalComment on above:Result Comment: NOTE ADA Guidelines Result HgbA1c Normal : less than 5.7 % Prediabetes : 5.7 % to 6.4 % Diabetes : > 6.4 % Use with caution in patients with abnormal hemoglobin variants as the half-life of red blood cells and in vivo glycation rates are affected.Performed By: #### BMP, 16847-7, LIVR, CBCA, 3016-3, HA1C, 2857-1 ####[facility] ([id number])[address] [address]KRAGV PANELon 99-79-3149Lldxpog [Mass/Vol]4.1 g/dLNormal3.2-5.3PEast Liverpool City HospitalComment on above:Performed By: #### BMP, 16862-5, LIVR, CBCA, 3016-3, HA1C, 2857-1 ####[facility] ([id number])[address] [address]GBA [Catalytic activity/Vol]103 U/LNormal 39-130ProThe Hospital At [facility] Medical CenterComment on above:Performed By: #### BMP, 52708- 1, LIVR, CBCA, 3016-3, HA1C, 2857-1 ####[facility] ( [id number])[address] [address]FQM [Catalytic activity/Vol] 11 U/LNormal0-40ProThe Hospital At West[facility] Medical CenterComment on above:Performed By: #### BMP, 29097-6, LIVR, CBCA, 3016-3, HA1C, 2857-1 ####[facility] ([id number])[address], [place] [address]UVD [Catalytic activity/Vol]18 U/LNormal0-41ProThe Hospital At [facility] Medical CenterComment on above: Performed By: #### BMP, 24770-2, LIVR, CBCA, 3016-3, HA1C, 2857-1 ####[facility] ([id number])[address], [address] [place] [address] Bilirubin [Mass/Vol]1.0 mg/dLNormal0.3-1.2PEast Liverpool City HospitalComment on above:Performed By: #### BMP, 28538-5, LIVR, CBCA, 3016-3, HA1C, 2857-1 ####[facility] ([id number])[address], [address] [place] [address]Kigqifpyr.direct [Mass/Vol]0.2 mg/dLNormal0.0-0.4[facility] HospitalComment on above:Performed By: #### BMP, 36246-6, LIVR, CBCA, 3016-3, HA1C, 285-1 ####[facility] ([id number])[address] [address] [place] [address] 41432Rrtqlxb [Mass/Vol]7.3 g/dLNormal6.0-8.0[facility] HospitalComment on above:Performed By: #### BMP, 98761-7, LIVR, CBCA, 3016-3, HA1C, 2857-1 ####[facility] ([id number])[address], [address] [place] [address] 737[address]Qyhjo 1996 panelon 46-28-2155Osaioptfvxm [Mass/Vol]114 mg/dL Qtc278-816QfyKqvkomThe Hospital At Westlake Medical CenterComment on above:Performed By: #### BMP, 32311-0, LIVR, CBCA, 3016-3, HA1C, 2857-1 ####[facility] ( [id number])[address], [address] [place] [address] 17553Lwrfamipvvk in HDL [Mass/Vol]58 mg/dLNormal>39ProThe Hospital At [facility] Medical CenterComment on above:Result Comment: HDL <40 mg/dL - High Risk HDL > or = 40mg/dL- Desirable HDL >60 mg/dL - Negative Risk Performed By: #### YUMIKO, 06961-1, LIVR, CBCA, 3016-3, HA1C, 2857-1 ####[facility] ( [id number])[address] [address]Cpbnjhgzeku in LDL [Mass/Vol]41 mg/dLNormal<130ProThe Hospital At [facility] Medical CenterComment on above:Result Comment: LDL <100 mg/dL - Desirable LDL >160 mg/dL - High Risk Performed By: #### YUMIKO, 49579-2, LIVR, CBCA, 3016-3, HA1C, 2857-1 ####[facility] ( [id number])[address], [address] [address]Xnsccruxuod in VLDL [Mass/Vol]15 mg/dLNormal0-30ProThe [facility] At [facility] Medical CenterComment on above:Performed By: #### YUMIKO, 86015-1, LIVR, CBCA, 3016-3, HA1C, 2857-1 ####[facility] ([id number])[address] [address]AQJZRQBZEZN:HDL 2.2Fvvpwl5.0-5.0ProThe Hospital At [facility] Medical CenterComment on above:Performed By: #### YUMIKO, 19036-6, LIVR, CBCA, 3016-3, HA1C, 2857-1 ####[facility] ([id number])[address] [address]Pyqjanmixple [Mass/Vol]76 mg/eUVvzlts45-666MzqQhdrsd [facility]ont HospitalComment on above:Performed By: #### YUMIKO, 52437-4, LIVR, CBCA, 3016-3, HA1C, 285-1 ####[facility] ([id number])[address] [address]KKVPHKETVDQA - ALBUMIN:CREATININE URINE RATIOon 92-67-0905UYC/CREAT RATIONOT CALCULATEDNormal 0.0-30.0[facility] HospitalComment on above:Result Comment: Result for Albumin/Creatinine Ratio cannot be reliably calculated because urine albumin and or urine creatinine is below the detection limit of the assay.Performed By: #### EDWARD ####[facility] ([id number])[address] [address]Mblzeub DL <= 20 mg/L (U) [Mass/Vol]mg/dLNormal0.0-1.9ProThe Hospital At West[facility] Medical CenterComment on above:Performed By: ###Jean-Pierre LEON ####[facility] ([id number])[address] [address]UJBTM CREAT79.10 mg/dLNormalProThe Hospital At [facility] Medical CenterComment on above:Performed By: #### EDWARD ####[facility] ([id number])[address] [address]Gzwyjmog specific Ag [Mass/Vol]on 30-45-1445GGU SCREEN1.04 ng/mLNormal0.00-4.00ProThe Hospital At West[facility] Medical CenterComment on above:Result Comment: The method used for this test is Yoana Gleason DXI chemiluminescent immunoassay. Values obtained by different assay methods cannot be used interchangeably.Performed By: #### YUMIKO, 27938-0, LIVR, CBCA, 3016-3, HA1C, 285-1 ####[facility] ([id number])[address], [address], [place] [address]ZDN Qnon 34-38-8323LOQ3.39 uIU/mLNormal 0.49-4.67ProMedica [facility]ist Health TulareComment on above:Performed By: #### BMP, 68844-7, LIVR, CBCA, 3016-3, HA1C, 2857-1 ####[facility] ( [id number])[address], [address], [place] [address]Alweqv Visiton 03-22-2024 Follow-up [id number] Boo Capps 1960 M Date Provider Department Center 03/22/2024 BRUNO ALBA CARD [facility] No family history on file Level of Service:25557 [place] OFFICE/OUTPATIENT ESTABLISHED LOW MDM 20 MIN Reason for Visit and Comments: Edema [[id number]]Normal[facility]36on 52-03-225115RLK follow up. Re-scheduled ERCP/Stent Removal/Bile Leak 01/13/24 @1345, PTH, Dr. Patricia, CARON ph: 01/06/24 @1000, #[id number]. Confirmed w/ Irma @ [employer]. Board of DD @ [phone].[facility] Medical CenterTelephoneon [id number] Boo Capps 1960 M Date Provider Department Center 12/30/2023 38020-RDMQWABEL MARCIAL [facility] No family history on fileNormalUniversity Centerville36on 40-45-483882Pknqru ERCP/Stent Rem/Bile Leak scheduled 12/29/23 @1100, PTH, Dr. Patricia, CARON ph: 12/22/23 @1000, #[id number]. Spoke w/ Irma @ [employer]. Board of DD @ [phone]. PTH follow up. Called to schedule repeat ERCP/Stent Rem/Bile Leak. 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 KANDIS left @ [phone] for Irma to return my call @ [phone]. NormalMercy Health St. Joseph Warren HospitalTelephoneon [id number] Boo Capps 1960 M Date Provider Department Center 11/30/2023 90746-FCDJJABEL LOCK [facility] No family history on fileNormalUniversity CentervilleBASIC METABOLIC PANLon 38-18-5263Viefv gap [Moles/Vol]12 mmol/LNormal5-15Pro[facility] HospitalComment on above:Performed By: #### CBC, PINR, 27394-2, BMP, LIVR, 16715-6, 2776- #### [facility] ([id number]) [address], [address] [place], [place] [address]Onwvqsw [Mass/Vol]9.3 mg/dLNormal8.5-10.5ProMedica [facility]eport HospitalComment on above:Performed By: #### CBC, PINR, 96775-6, BMP, LIVR, 38518-1, 2776- #### [facility] ([id number]) [address], [address] [place], [place] [address]Xvwmnrub [Moles/Vol]107 mmol/LKrvonm94-851ZpwNfbspz [facility] HospitalComment on above:Performed By: #### CBC, PINR, 13864-8, BMP, LIVR, 75945-6, 2776-1 #### [facility] ([id number]) [address], [address] [place], [place] [address]BH3 [Moles/Vol]18 mmol/IWcg34-32GgqLbyjyn [facility] HospitalComment on above:Performed By: #### CBC, PINR, 26907-3, BMP, LIVR, 36276-6, 2776-1 #### [facility] ([id number]) [address] [address] [place], [place] [address]Tnhhzjqciv [Mass/Vol]0.96 mg/dLNormal0.60-1.30ProBarney Children'S Medical CenterComment on above:Result Comment: METHOD TRACEABLE TO IDMS STANDARD Performed By: #### CBC, PINR, 78247-0, BMP, LIVR, 06339-0, 2776-02 #### [facility] ([id number]) [address] [address] [place], [place] [address]JAB/1.73 sq M.predicted among non-blacks MDRD (S/P/Bld) [Vol rate/Area]90 mL/min/{1.73_m2}Normal>59ProBarney Children'S Medical CenterComment on above: Result Comment: Reported eGFR is based on the CKD-EPI 2020 equation that does not use a race coefficient.Performed By: #### CBC, PINR, 05068-8, BMP, LIVR, , 2776-02 #### [facility] ([id number]) [address] [address]Pziiajk [Mass/Vol]208 mg/oFPxcm19-15FuuZdrwbsBarney Children'S Medical Center Comment on above:Performed By: #### CBC, PINR, 88886-1, BMP, LIVR, , 2776-02 #### [facility] ([id number]) [address] [address]Gnjytbmgx [Moles/Vol]4.0 mmol/LNormal3.5-5.0ProBarney Children'S Medical CenterComment on above:Performed By: #### CBC, PINR, 27388-6, BMP, LIVR, 39024-3, 2776-02 #### [facility] ([id number]) [address] [address] [place], [place] [address]Rkqzln [Moles/Vol]137 mmol/MKbxcsu596-686KwrGgirgb [place] HospitalComment on above:Performed By: #### CBC, PINR, 44752-7, BMP, LIVR, 18320-5, 2777-1 #### [facility] ([id number]) [address], [address] [place], [place] [address]Gepk nitrogen [Mass/Vol]12 mg/dLNormal5-27SCCI Hospital LimaComment on above:Performed By: #### CBC, PINR, 80825-1, BMP, LIVR, 90281-0, 2777-1 #### [facility] ([id number]) [address], [address] [place], [place] [address]Imdrc Metabolic Panelon 35-22-1578Wgbpo gap [Moles/Vol]12 mmol/L 5 - 15 mmol/[facility] Centerica Health SystemCalcium [Mass/Vol]9.3 mg/dL8.5 - 10.5 mg/dL [facility] SystemChloride [Moles/Vol]107 mmol/L98 - 109 mmol/[facility] Centerica Health SystemCO2 [Moles/Vol]18 mmol/LLow22 - 32 mmol/[facility] Creatinine [Mass/Vol]0.96 mg/dL0.60 - 1.30 mg/dLMiddletown HospitalComment on above:METHOD TRACEABLE TO [facility] STANDARDeGFR (CKD-EPI)non-race udxcqwiyw88- Augusta HealthComment on above: Reported eGFR is based on the CKD-EPI 2020 equation that does not use a race coefficient. Glucose [Mass/Vol]208 mg/pSZxhv27 - 99 mg/dLMiddletown Hospital Interpretation and review of laboratory resultsAbnormOhioHealth Marion General Hospital Potassium [Moles/Vol]4 mmol/L3.5 - 5.0 mmol/LProMedica Health SystemSodium [Moles/Vol]137 mmol/L134 - 146 mmol/[facility] Centerica Health SystemUrea nitrogen [Mass/Vol]12 mg/dL5 - 27 mg/dLMiddletown HospitalCBC without diffon 33-68-2665Fuzmzmjucih distribution width (RBC) [Ratio]16 %High11.5 - 15.0 % [facility] SystemHematocrit (Bld) [Volume fraction]39.9 %39 - 49 % [facility] HospitalHemoglobin (Bld) [Mass/Vol]13.8 g/dL13.0 - 17.0 g/dL [facility] HospitalInterpretation and review of laboratory resultsAbnormal Summa HealthH (RBC) [Entitic mass]33.3 pg27 - 34 [facility] HospitalMCHC (RBC) [Mass/Vol]34.5 g/dL32 - 36 g/dLMiddletown HospitalMCV (RBC) [Entitic vol]96 fL80 - 100 [facility] HospitalPlatelet mean volume (Bld) [Entitic vol]7.3 fL7 - 12 [facility] HospitalPlatelets (Bld) [#/Vol]268 10*3/[facility] HospitalRBC (Bld) [#/Vol]4.14 10*6/[facility] HospitalWBC corrected for nucl RBC Auto (Bld) [#/Vol]11.7HighWashington Health SystemCOMPLETE BLOOD COUNTon 75-89-7383Xitovdzdtcv distribution width (RBC) [Ratio]16.0 %High11.5-15.0[facility] Comment on above:Performed By: #### CBC, PINR, 04783-9, BMP, LIVR, , 2776-1 #### [facility] ([id number]) [address], [address] [place], [place] [address]Pshswrastj (Bld) [Volume fraction]39.9 %Ncywik14-09LlmXdvbenSCCI Hospital LimaComment on above:Performed By: #### CBC, PINR, 38980-6, BMP, LIVR, 31749-5, 2776-1 #### [facility] ([id number]) [address], [address] [place], [place] [address]Siiafufkao (Bld) [Mass/Vol]13.8 g/bJTxjnql67.0-17.0SCCI Hospital LimaComment on above:Performed By: #### CBC, PINR, 93656-5, BMP, LIVR, , 2776-1 #### [facility] ([id number]) [address], [address] [place], [place] [address]YZN (RBC) [Entitic mass]33.3 dwUrizds09-37AhzQhpddt Curtis HospitalComment on above:Performed By: #### CBC, PINR, 48824-5, BMP, LIVR, 44813-7, 2776-02 #### [facility] ([id number]) [address], [address] [place], [place] [address]YYAX (RBC) [Mass/Vol]34.5 g/eWYtbnpu19-50ZulIahcxy Curtis HospitalComment on above:Performed By: #### CBC, PINR, 11625-8, BMP, LIVR, 29419-0, 2776-02 #### [facility] ([id number]) [address], [address] [place], [place] [address]ZDL (RBC) [Entitic vol]96 mHFtrpai78-973EtdXuiwyf Curtis HospitalComment on above:Performed By: #### CBC, PINR, 76440-0, BMP, LIVR, 87496-6, 2776-02 #### [facility] ([id number]) [address], [address] [place], [place] [address]Uluctvna mean volume (Bld) [Entitic vol]7.3 fLNormal7-12 [facility] HospitalComment on above:Performed By: #### CBC, PINR, 86876-2, BMP, LIVR, 82978-9, 2776-02 #### [facility] ([id number]) [address], [address] [place], [place] [address]Sttzvnqee (Bld) [#/Vol]268 10*3/rRFflvxa470-035GfmDrctnw Curtis HospitalComment on above:Performed By: #### CBC, PINR, 43676-4, BMP, LIVR, 29393-1, 2776- #### [facility] ([id number]) [address], [address] [place], [place] [address]DWL COUNT4.14 X10E12/LNormal4.10-5.70[facility] Comment on above:Performed By: #### CBC, PINR, 52876-3, BMP, LIVR, 02108-1, 2776-1 #### [facility] ([id number]) [address], [address] [place], [place] [address]XXE (Bld) [#/Vol]11.7 10*3/uLHigh4.0-11.0[facility] LimaComment on above:Performed By: #### CBC, PINR, 40544-1, BMP, LIVR, , 1 #### [facility] ([id number]) [address] [address]Ovvfgze Glucometer (BldC) [Mass/Vol]on 05-43-5498Xfucgri [Mass/Vol]185 mg/cJLani32 - 99 mg/dLMiddletown HospitalInterpretation and review of laboratory resultsAbnormalMiddletown HospitalProPremier Health Atrium Medical CenterGlucose [Mass/Vol]185 mg/cWCucv24-13RbnXlekwrBarney Children'S Medical CenterLIVER PANELon 74-41-2938Uclxhnn [Mass/Vol]3.4 g/dLNocritical access hospital3.2-5.3PFlower [facility] Comment on above:Performed By: #### CBC, PINR, 27196-7, BMP, LIVR, 60143-3, 1 #### [facility] ([id number]) [address] [address]BQD [Catalytic activity/Vol]91 U/IHirqyc00-083DyxVsujbjSCCI Hospital LimaComment on above:Performed By: #### CBC, PINR, 52464-6, BMP, LIVR, 78545-9, 2777-1 #### [facility] ([id number]) [address], [address] [place], [place] [address]GAE [Catalytic activity/Vol]7 U/LNormal0-40[facility] Curtis HospitalComment on above:Performed By: #### CBC, PINR, 30888-6, BMP, LIVR, 05666-4, 1 #### [facility] ([id number]) [address], [address] [place], [place] [address]XSO [Catalytic activity/Vol]10 U/LNormal0-41[facility] Curtis HospitalComment on above:Performed By: #### CBC, PINR, 59706-2, BMP, LIVR, 67581-8, 2776-1 #### [facility] ([id number]) [address], [address] [place], [place] [address]Xzmurdqdr [Mass/Vol]0.7 mg/dLNormal0.3-1.2[facility] Curtis HospitalComment on above:Performed By: #### CBC, PINR, 12777-8, BMP, LIVR, 54607-6, 1 #### [facility] ([id number]) [address], [address] [place], [place] [address]Vmgdgovdp.direct [Mass/Vol]0.2 mg/dLNormal0.0-0.4[facility] Curtis HospitalComment on above:Performed By: #### CBC, PINR, 59822-2, BMP, LIVR, 50686-5, 1 #### [facility] ([id number]) [address], [address] [place], [place] [address]Qqhcyzw [Mass/Vol]7.2 g/dLNormal6.0-8.0[facility] Comment on above:Performed By: #### CBC, PINR, 08653-0, BMP, LIVR, 86622-9, 2776-1 #### [facility] ([id number]) [address], [address] [place], [place] [address]Hkqlf panelon 41-77-1370Gpumcdh [Mass/Vol]3.4 g/dL3.2 - 5.3 g/dL [facility] SystemALP [Catalytic activity/Vol]91 U/L39 - 130 U/LProMedica Health SystemALT No additional P-5'-P [Catalytic activity/Vol]7 U/L0 - 40 U/L [facility] SystemAST [Catalytic activity/Vol]10 U/L0 - 41 U/LProMedica [facility] SystemBilirubin [Mass/Vol]0.7 mg/dL0.3 - 1.2 mg/dLMemorial [facility] System Bilirubin.direct [Mass/Vol]0.2 mg/dL0.0 - 0.4 mg/dLMemorial Health [facility] System Protein [Mass/Vol]7.2 g/dL6.0 - 8.0 g/dLMemorial Health System [facility] SystemMAGNESIUMon 20-14-6025Vxhqczztr [Mass/Vol]1.8 mg/dLNormal1.8-2.6[facility] Comment on above:Performed By: #### CBC, PINR, 41257-9, BMP, LIVR, 10507-8, 2777-1 #### [facility] ([id number]) [address], [address] [place], [place] [address]Blopgijblny 27-18-9885Fypltmdaz [Mass/Vol]1.8 mg/dL1.8 - 2.6 mg/dLMiddletown HospitalNo Panel Informationon 75-31-1260TxbSeuvuw Health SystemPHOSPHORUSon 05-01-7624Exahspgwe [Mass/Vol]2.4 mg/dLNormal2.4-4.9[facility] LimaComment on above:Performed By: #### CBC, PINR, 77053-9, BMP, LIVR, 31334-1, 2777-1 #### [facility] ([id number]) [address], [address] [place], [place] [address]Liqegbaaqrqh 13-50-9331Nhnetatru [Mass/Vol]2.4 mg/dL2.4 - 4.9 mg/dLProPremier Health Atrium Medical CenterBASIC METABOLIC PANLon 41-86-8867Mxato gap [Moles/Vol]17 mmol/LHigh5-15[facility] HospitalComment on above:Performed By: #### CBC, PINR, 12653-4, BMP, LIVR, 96904-3, 2776-02 #### [facility] ([id number]) [address], [address] [place], [place] [address]Btgevoe [Mass/Vol]8.6 mg/dLNormal8.5-10.5[facility] HospitalComment on above:Performed By: #### CBC, PINR, 34181-4, BMP, LIVR, 86123-2, 2776-02 #### [facility] ([id number]) [address], [address] [place], [place] [address]Xirlvddl [Moles/Vol]108 mmol/MYevzee21-690DaxZvuswy Curtis HospitalComment on above:Performed By: #### CBC, PINR, 92299-5, BMP, LIVR, , 2776-02 #### [facility] ([id number]) [address], [address] [place], [place] [address]VG8 [Moles/Vol]15 mmol/SIzm38-15McgRjvxzx Curtis HospitalComment on above:Performed By: #### CBC, PINR, 51320-3, BMP, LIVR, , 2776-02 #### [facility] ([id number]) [address], [address] [place], [place] [address]Cxnrtzople [Mass/Vol]1.11 mg/dLNormal0.60-1.30[facility] HospitalComment on above:Result Comment: METHOD TRACEABLE TO IDMS STANDARD Performed By: #### CBC, PINR, 81474-3, BMP, LIVR, 15701-7, 2776- #### [facility] ([id number]) [address], [address] [place], [place] [address]YQQ/1.73 sq M.predicted among non-blacks MDRD (S/P/Bld) [Vol rate/Area]76 mL/min/{1.73_m2}Normal>59ProBarney Children'S Medical CenterComment on above: Result Comment: Reported eGFR is based on the CKD-EPI 2020 equation that does not use a race coefficient.Performed By: #### CBC, PINR, 32819-2, BMP, LIVR, 43522-7, 2776-02 #### [facility] ([id number]) [address], [address] [place], [place] [address]Jvkwqax [Mass/Vol]199 mg/eTSheb86-59GacEfqalvBarney Children'S Medical Center Comment on above:Performed By: #### CBC, PINR, 94479-4, BMP, LIVR, , 2776-02 #### [facility] ([id number]) [address], [address] [place], [place] [address]Nugitmuma [Moles/Vol]3.8 mmol/LNormal3.5-5.0ProBarney Children'S Medical CenterComment on above:Performed By: #### CBC, PINR, 88973-0, BMP, LIVR, , 2776-02 #### [facility] ([id number]) [address], [address] [place], [place] [address]Svnkpk [Moles/Vol]140 mmol/ILddxmv257-494DhyCcnneo [place] HospitalComment on above:Performed By: #### CBC, PINR, 51060-2, BMP, LIVR, 46318-4, 2776-02 #### [facility] ([id number]) [address], [address] [place], [place] [address]Gsio nitrogen [Mass/Vol]13 mg/dLNormal5-27ProBarney Children'S Medical CenterComment on above:Performed By: #### CBC, PINR, 58875-2, BMP, LIVR, 62227-1, 2776-02 #### [facility] ([id number]) [address] [place], [place] [address]Xeyah Metabolic Panelon 84-59-9954Aehyc gap [Moles/Vol]17 mmol/L High5 - 15 mmol/[facility] Health SystemCalcium [Mass/Vol]8.6 mg/dL8.5 - 10.5 mg/dLProPremier Health Atrium Medical CenterChloride [Moles/Vol]108 mmol/L98 - 109 mmol/L [facility] HospitalCO2 [Moles/Vol]15 mmol/LLow22 - 32 mmol/[facility] SystemCreatinine [Mass/Vol]1.11 mg/dL0.60 - 1.30 mg/dLMiddletown Hospital Comment on above:METHOD TRACEABLE TO IDWI STANDARDeGFR (CKD-EPI)non-race lvyeovusa80- Augusta HealthComment on above: Reported eGFR is based on the CKD-EPI 2020 equation that does not use a race coefficient. Glucose [Mass/Vol]199 mg/vTKeeb01 - 99 mg/dLMiddletown HospitalPotassium [Moles/Vol]3.8 mmol/L3.5 - 5.0 mmol/[facility] Health SystemSodium [Moles/Vol] 140 mmol/L134 - 146 mmol/[facility] SystemUrea nitrogen [Mass/Vol]13 mg/dL5 - 27 mg/dLMiddletown HospitalCBC without diffon 37-09-0218Cqoiytxlxgl distribution width (RBC) [Ratio]15.7 %High11.5 - 15.0 %[facility] Hematocrit (Bld) [Volume fraction]38.3 %Low39 - 49 %[facility] Hemoglobin (Bld) [Mass/Vol]13.3 g/dL13.0 - 17.0 g/dLMiddletown Hospital Interpretation and review of laboratory resultsAbnormalMiddletown Hospital MCH (RBC) [Entitic mass]33.8 pg27 - 34 [facility] HospitalMCHC (RBC) [Mass/Vol]34.8 g/dL32 - 36 g/dLMiddletown HospitalMCV (RBC) [Entitic vol]97 fL80 - 100 [facility] HospitalPlatelet mean volume (Bld) [Entitic vol]7.5 fL7 - 12 [facility] CenterKettering Health PreblePlatelets (Bld) [#/Vol]263 10*3/uLMiddletown HospitalRBC (Bld) [#/Vol]3.93 10*6/uLLowMiddletown HospitalWBC corrected for nucl RBC Auto (Bld) [#/Vol]8.2PPenn Presbyterian Medical CenterCOMPLETE BLOOD COUNTon 10-70-0743Xkwklxbwqnr distribution width (RBC) [Ratio]15.7 %High11.5-15.0[facility] HospitalComment on above: Performed By: #### CBC, PINR, 77738-5, BMP, LIVR, 18173-4, 2776-1 #### [facility] ([id number]) [address], [address] [place], [place] [address]Jwonwclqlb (Bld) [Volume fraction]38.3 %Riz90-62YoiThtqvj [place] HospitalComment on above:Performed By: #### CBC, PINR, 80054-7, BMP, LIVR, 02612-2, 2776- #### [facility] ([id number]) [address], [address] [place], [place] [address]Ycdcqmknoq (Bld) [Mass/Vol]13.3 g/rMPizrur91.0-17.0ProBarney Children'S Medical CenterComment on above:Performed By: #### CBC, PINR, 01843-7, BMP, LIVR, 15521-1, 2776-1 #### [facility] ([id number]) [address], [address] [place], [place] [address]HAD (RBC) [Entitic mass]33.8 buZbtruz64-46KtaBcqynu [place] HospitalComment on above:Performed By: #### CBC, PINR, 14594-0, BMP, LIVR, 17222-1, 2776-1 #### [facility] ([id number]) [address], [address] [place], [place] [address]KWCA (RBC) [Mass/Vol]34.8 g/nNDhovyk16-28FzcIkdrhr [place] HospitalComment on above:Performed By: #### CBC, PINR, 58260-2, BMP, LIVR, 38560-8, 2776- #### [facility] ([id number]) [address], [address] [place], [place] [address]LFI (RBC) [Entitic vol]97 bZKqkqdy34-681UrtFxinkv [place] HospitalComment on above:Performed By: #### CBC, PINR, 02200-9, BMP, LIVR, 69209-7, 2776- #### [facility] ([id number]) [address], [address] [place], [place] [address]Ldrfnwqf mean volume (Bld) [Entitic vol]7.5 fLNormal7-12 [facility] [place] HospitalComment on above:Performed By: #### CBC, PINR, 66607-3, BMP, LIVR, 34419-8, 2776-02 #### [facility] ([id number]) [address], [address] [place], [place] [address]Arxyxohzm (Bld) [#/Vol]263 10*3/uJOyuksm924-382PsnAsuoin [place] HospitalComment on above:Performed By: #### CBC, PINR, 63435-4, BMP, LIVR, 89947-7, 2776-02 #### [facility] ([id number]) [address], [address] [place], [place] [address]KUP COUNT3.93 X10E12/LLow4.10-5.70[facility] Comment on above:Performed By: #### CBC, PINR, 73291-8, BMP, LIVR, 25882-8, 2776- #### [facility] ([id number]) [address], [address] [place], [place] [address]HLN (Bld) [#/Vol]8.2 10*3/uLNormal4.0-11.0[facility] HospitalComment on above:Performed By: #### CBC, PINR, 42364-1, BMP, LIVR, , 1 #### [facility] ([id number]) [address], [address] [place], [place] [address]Qdoyzyt Glucometer (dC) [Mass/Vol]on 32-44-7589Pknhroy [Mass/Vol]234 mg/yMOdpt23 - 99 mg/dLMemorial Health System [facility] SystemInterpretation and review of laboratory resultsAbnoHeritage Valley Health SystemGlucose [Mass/Vol]234 mg/uOMcyr68-33KsbTjklvbBarney Children'S Medical CenterGlucose [Mass/Vol]261 mg/iZYfft61 - 99 mg/dLProMercy Hospital SystemInterpretation and review of laboratory resultsAbnoMercyhealth Walworth Hospital and Medical Center SystemGlucose [Mass/Vol]261 mg/zLVyfl20-79WkiDuxcncBarney Children'S Medical CenterGlucose [Mass/Vol]191 mg/wAQirv97 - 99 mg/dLMemorial Health System [facility] SystemInterpretation and review of laboratory resultsAbnormBeloit Memorial Hospital SystemGlucose [Mass/Vol]191 mg/nPQvfe66-60LvvRkeanpBarney Children'S Medical CenterLIVER PANELon 24-02-9944Hivuenq [Mass/Vol]3.0 g/dLLow3.2-5.3[facility] [place] HospitalComment on above:Performed By: #### CBC, PINR, 73038-7, BMP, LIVR, , 1 #### [facility] ([id number]) [address], [address] [place], [place] [address]TTC [Catalytic activity/Vol]87 U/MLrhink31-411BfiYqqgeb [place] HospitalComment on above:Performed By: #### CBC, PINR, 25197-6, BMP, LIVR, , 2776-1 #### [facility] ([id number]) [address], [address] [facility] [place] [address]NWY [Catalytic activity/Vol]9 U/LNormal0-40[facility] HospitalComment on above:Performed By: #### CBC, PINR, 73719-6, BMP, LIVR, 24204-0, 1 #### [facility] ([id number]) [address], [address] [place], [place] [address]EGS [Catalytic activity/Vol]10 U/LNormal0-41[facility] HospitalComment on above:Performed By: #### CBC, PINR, 94023-2, BMP, LIVR, 20212-3, 2776-1 #### [facility] ([id number]) [address], [address] [place], [place] [address]Nmfzwiyxf [Mass/Vol]0.7 mg/dLNormal0.3-1.2[facility] HospitalComment on above:Performed By: #### CBC, PINR, 97785-1, BMP, LIVR, 25438-8, 1 #### [facility] ([id number]) [address], [address] [place], [place] [address]Sgmakyqjk.direct [Mass/Vol]0.2 mg/dLNormal0.0-0.4[facility] HospitalComment on above:Performed By: #### CBC, PINR, 34508-0, BMP, LIVR, 69356-6, 1 #### [facility] ([id number]) [address], [address] [place], [place] [address]Iaiwipa [Mass/Vol]6.5 g/dLNormal6.0-8.0[facility] Comment on above:Performed By: #### CBC, PINR, 92766-4, BMP, LIVR, 90957-4, 2776-1 #### [facility] ([id number]) [address], [address] [place], [place] [address]Anitb panelon 13-93-7259Xbujzgg [Mass/Vol]3 g/dLLow3.2 - 5.3 g/dLProL.V. Stabler Memorial Hospital Health SystemALP [Catalytic activity/Vol]87 U/L39 - 130 U/L [facility] SystemALT No additional P-5'-P [Catalytic activity/Vol]9 U/L0 - 40 U/LProMedica Health SystemAST [Catalytic activity/Vol]10 U/L0 - 41 U/L ProMEssentia Health SystemBilirubin [Mass/Vol]0.7 mg/dL0.3 - 1.2 mg/dLProMercy Hospital SystemBilirubin.direct [Mass/Vol]0.2 mg/dL0.0 - 0.4 mg/dLMemorial Health System [facility] SystemProtein [Mass/Vol]6.5 g/dL6.0 - 8.0 g/dLMiddletown HospitalMAGNESIUM on 13-42-0920Ifpzcznog [Mass/Vol]1.8 mg/dLNormal1.8-2.6[facility] Comment on above:Performed By: #### CBC, PINR, 71140-4, BMP, LIVR, 16680-5, 2777-1 #### [facility] ([id number]) [facility] [address] [facility] [place], [place] [address]Ahgoeenkgrb 80-73-2733Aibsjscop [Mass/Vol]1.8 mg/dL1.8 - 2.6 mg/dLMiddletown HospitalNo Panel Informationon 27-73-0084Zmukkcgjbvzmgv and review of laboratory resultsAbnormalProPremier Health Atrium Medical CenterProMercy Hospital SystemPHOSPHORUSon 71-67-5532Hftpdzgsu [Mass/Vol]3.3 mg/dLNormal2.4-4.9[facility] Hospital LimaComment on above:Performed By: #### CBC, PINR, 58093-6, BMP, LIVR, 70906-7, 2777-1 #### [facility] ([id number]) [address], [address] [place], [place] [address]Fsqqkhkerska 10-75-9960Tzzairwxw [Mass/Vol]3.3 mg/dL2.4 - 4.9 mg/dLMiddletown HospitalBASIC METABOLIC PANLon 63-14-3905Dzcgh gap [Moles/Vol]16 mmol/LHigh5-15ProBarney Children'S Medical CenterComment on above:Performed By: #### CBC, BMP, LIVR, , 2776-02 ####[facility] ([id number])[address], [address], [place] [address]Vohsxfl [Mass/Vol]8.6 mg/dL Normal8.5-10.5PThe Surgical Hospital at Southwoods HospitalComment on above:Performed By: #### CBC, BMP, LIVR, , 2776-02 ####[facility] ([id number])[address], [address], [place] [address]Tdxiowda [Moles/Vol]108 mmol/VBmwasj60-180 ProMEast [facility] HospitalComment on above:Performed By: #### CBC, BMP, LIVR, , 2776-02 ####[facility] ([id number])[address], [address], [place] [address]DE1 [Moles/Vol]17 mmol/ZCmf17-35DftBnzbbh [place] HospitalComment on above:Performed By: #### CBC, BMP, LIVR, , 2776-02 ####[facility] ([id number])[address], [place] [address]Etxvzmxbme [Mass/Vol]1.06 mg/dLNormal0.60-1.30[facility] Comment on above:Result Comment: METHOD TRACEABLE TO IDMS STANDARDPerformed By: #### CBC, BMP, LIVR, , 2776-02 ####[facility] ([id number])[address], [address], [place] [address]OPV/1.73 sq M.predicted among non-blacks MDRD (S/P/Bld) [Vol rate/Area]80 mL/min/{1.73_m2}Normal>59 ProMWright-Patterson Medical CenterComment on above:Result Comment: Reported eGFR is based on the CKD-EPI 2020 equation that does not use a race coefficient.Performed By: #### CBC, BMP, LIVR, , 2776-02 ####[facility] ([id number])[address] [place] [address]Fdbrwmz [Mass/Vol]134 mg/eIVssy19-95FjqEakgnf [place] HospitalComment on above:Performed By: #### SIMONE, BMP, LIVR, , 2776-02 ####[facility] ([id number])[address] [address]Ebybnexsh [Moles/Vol]4.0 mmol/LNormal3.5-5.0ProBarney Children'S Medical CenterComment on above: Performed By: #### SIMONE, BMP, LIVR, , 2776-02 ####[facility] ([id number])[address] [address]Aispxn [Moles/Vol]141 mmol/HHvnitq749-888EhjJqmfvy [place] HospitalComment on above:Performed By: #### SIMONE, BMP, LIVR, , 2776-02 ####[facility] ([id number])[address] [address]Jelf nitrogen [Mass/Vol]11 mg/dLNormal5-27ProKettering Health Preble HospitalComment on above:Performed By: #### SIMONE, BMP, LIVR, , 2776-02 ####[facility] ([id number])[address] [address]Wvkrc Metabolic Panelon 69-22-5309Zukgz gap [Moles/Vol]16 mmol/LHigh5 - 15 mmol/LProMedica Health SystemCalcium [Mass/Vol] 8.6 mg/dL8.5 - 10.5 mg/dLMiddletown HospitalChloride [Moles/Vol]108 mmol/L98 - 109 mmol/[facility] HospitalCO2 [Moles/Vol]17 mmol/LLow22 - 32 mmol/L [facility] HospitalCreatinine [Mass/Vol]1.06 mg/dL0.60 - 1.30 mg/dLMiddletown HospitalComment on above:METHOD TRACEABLE TO IDWI STANDARDeGFR (CKD-EPI)non-race adktwiway52- PINChildren's Mercy HospitalComment on above: Reported eGFR is based on the CKD-EPI 2020 equation that does not use a race coefficient. Glucose [Mass/Vol]134 mg/cISklb71 - 99 mg/dLMiddletown HospitalPotassium [Moles/Vol]4 mmol/L3.5 - 5.0 mmol/Psychiatric hospitalodium [Moles/Vol]141 mmol/L134 - 146 mmol/[facility] HospitalUrea nitrogen [Mass/Vol]11 mg/dL5 - 27 mg/dLMiddletown HospitalCBC without diffon 15-99-1992Jintejlwpco distribution width (RBC) [Ratio]15.8 %High11.5 - 15.0 %[facility] Hematocrit (Bld) [Volume fraction]38.6 %Low39 - 49 %[facility] Hemoglobin (Bld) [Mass/Vol]13 g/dL13.0 - 17.0 g/dLMiddletown Hospital Interpretation and review of laboratory resultsAbnormalMiddletown Hospital MCH (RBC) [Entitic mass]33.3 pg27 - 34 [facility] HospitalMCHC (RBC) [Mass/Vol]33.6 g/dL32 - 36 g/dLMiddletown HospitalMCV (RBC) [Entitic vol]99 fL80 - 100 [facility] HospitalPlatelet mean volume (Bld) [Entitic vol]7.5 fL7 - 12 [facility] HospitalPlatelets (Bld) [#/Vol]220 10*3/uLMiddletown HospitalRBC (Bld) [#/Vol]3.9 10*6/uLLowMiddletown HospitalWBC corrected for nucl RBC Auto (Bld) [#/Vol]7.8Washington Health SystemCOMPLETE BLOOD COUNTon 33-19-7634Tvlvycoqhwp distribution width (RBC) [Ratio]15.8 %High11.5-15.0[facility] Hospital LimaComment on above:Performed By: #### CBC, BMP, LIVR, , 2776-02 ####[facility] ([id number])[address], [address] [place] [address]Dutptdukdz (Bld) [Volume fraction]38.6 %Tss21-41EftMbykzkBarney Children'S Medical CenterComment on above:Performed By: #### CBC, BMP, LIVR, , 2776-02 ####[facility] ([id number])[address], [address] [place] [address]Kwqkgmbswb (Bld) [Mass/Vol] 13.0 g/nJIwrqvc90.0-17.0ProKettering Health Preble HospitalComment on above:Performed By: #### CBC, BMP, LIVR, , 2776-02 ####[facility] ([id number])[address], [address] [place] [address]CVL (RBC) [Entitic mass] 33.3 ruTqduoo19-76XzhCoounn [place] HospitalComment on above:Performed By: #### CBC, BMP, LIVR, , 2776-02 ####[facility] ([id number])[address], [address] [place] [address]HQYG (RBC) [Mass/Vol]33.6 g/mLMedpge19-75CgxIkuoif [place] HospitalComment on above:Performed By: #### CBC, BMP, LIVR, , 2776-02 ####[facility] ([id number])[address], [address], [place] [address]CEY (RBC) [Entitic vol]99 fBXomzbl73-591 [facility] HospitalComment on above:Performed By: #### CBC, BMP, LIVR, , 2776-02 ####[facility] ([id number])[address], [address] [place] [address]Hcxpzbvr mean volume (Bld) [Entitic vol]7.5 fLNormal 7-12Pro[facility]ica [facility] HospitalComment on above:Performed By: #### CBC, BMP, LIVR, , 2776-02 ####[facility] ([id number])[address], [address] [place] [address]Konndirpa (Bld) [#/Vol]220 10*3/tCPnxcjb613-416 [facility] HospitalComment on above:Performed By: #### CBC, BMP, LIVR, , 2776-02 ####[facility] ([id number])[address], [address] [place] [address] [id number] COUNT3.90 X10E12/LLow4.10-5.70ProK[facility] HospitalComment on above:Performed By: #### CBC, BMP, LIVR, , 2776-02 ####[facility] ([id number])[address], [address] [place] [address] [id number] (Bld) [#/Vol]7.8 10*3/uLNormal4.0-11.0ProK[facility] Pre[facility] HospitalComment on above:Performed By: #### CBC, BMP, LIVR, , 2776-02 ####[facility] ([id number])[address], [address] [place] [address] [id number], Rafael Leach MD - 11/26/2023 [facility] Patient Name: Boo Capps Procedure Date: 11/26/2023 9:32 AM CSN: [id number] Date of : 1960 Admit Type: Inpatient Age: 63 Room: [place] [address] Gender: Male Note Status: Finalized Attending MD: RAFAEL PATRICIA MD, Procedure: ERCP Indications: Bile leak Providers: RAFAEL PATRICIA MD Referring MD: Anahy Cooper Requesting Provider: Medicines: General Anesthesia, Indomethacin 100 mg KS Complications: No immediate complications. Procedure: After obtaining informed consent, the scope was passed under direct vision. Throughout the procedure, the patient's blood pressure, pulse, and oxygen saturations were monitored continuously. The was introduced through the mouth, and advanced to the duodenum and used to inject contrast into the bile duct. The Endoscope was introduced through the and advanced to the duodenum. The ERCP was accomplished without difficulty. The patient tolerated the procedure well. Findings: The behavior management specialist film was normal. The esophagus was successfully intubated under direct vision. The scope was advanced to a normal major papilla in the descending duodenum without detailed examination of the pharynx, larynx and associated structures, and upper GI tract. The upper GI tract was grossly normal. The bile duct was deeply cannulated with the short-nosed traction sphincterotome. Contrast was injected. I personally interpreted the bile duct images. Ductal flow of contrast was adequate. Preparations were made for cholangiography using balloon occlusion technique. The previous cannulation device was exchanged over the guidewire for a balloon-tipped catheter. The balloon-tipped catheter was then advanced into the common bile duct. The balloon was inflated to 12 mm in size. Contrast was then injected into the biliary tree and opacified the left and right hepatic ducts and all intrahepatic branches. Extravasation of contrast originating from the cystic duct/gallbladder remnant was observed. A 5 mm biliary sphincterotomy was made with a traction (standard) sphincterotome using ERBE electrocautery. There was no post-sphincterotomy bleeding. To discover objects, the biliary tree was swept with a 12 mm balloon starting at the bifurcation. Nothing was found. One 8 mm by 8 cm covered metal stent was placed into the common bile duct. The stent was in good position. Estimated Blood Loss: Estimated blood loss was minimal. Impression: - A bile leak was found from the cystic duct/gallbladder remnant. - A biliary sphincterotomy was performed. - The biliary tree was swept and nothing was found. - One covered metal stent was placed into the common bile duct. Recommendation: - Clear liquid diet after 4 hours. - Repeat ERCP in 1 month for stent removal Procedure Code(s): --- Professional --- 87484, Endoscopic retrograde cholangiopancreatography (ERCP); with placement of endoscopic stent into biliary or pancreatic duct, including pre- and post-dilation and guide wire passage, when performed, including sphincterotomy, when performed, each stent Diagnosis Code(s): --- Professional --- K83.9, Disease of biliary tract, unspecified K83.8, Other specified diseases of biliary tract CPT copyright 2022 [employer]. All rights reserved. The codes documented in this report are preliminary and upon procurement analyst review may be revised to meet current compliance requirements. Dr. Rafael PATRICIA MD 11/26/2023 12:14:25 PM This report has been signed electronically. Number of Addenda: 0 Note Initiated On: 11/26/2023 9:[address] [facility] HospitalPCA Audit [facility] HospitalERCP Reporton 54-53-2942Gyfn order has been auto-finalized for image and report archival in PACs. *For full report details, please reach out to your physician. This image is visible to you in MyChart.*3D BiomatrixThis order has been auto- finalized for image and report archival in PACs. *For full report details, please reach out to your physician. This image is visible to you in MyChart.*3D BiomatrixElectrocardiogram, 12-lead on 78-63-9702KHYQPTZLAZAYEBEjkJjnobj Health SystemFL ERCP BILIARY DUCTon 79-03-6595YE ERCP BILIARY DUCTFL ERCP BILIARY DUCT FL ERCP BILIARY DUCT CLINICAL INFORMATION: . ERCP. TECHNIQUE/PROCEDURE: Intraprocedural fluoroscopy without radiologist supervision. Reference air kerma: 91.73 mGy IMPRESSION: Please refer to intraprocedural report for further details. Finalized by Mc Ventura MD on 11/26/2023 12:09 [facility] CenterGlucose Glucometer (BldC) [Mass/Vol]on 86-54-1998Mqfhtso [Mass/Vol]289 mg/nCSirn18 - 99 mg/dLProMercy Hospital SystemInterpretation and review of laboratory resultsAbnormalMemorial Health System Mari[facility] SystemProMercy Hospital SystemGlucose [Mass/Vol]289 mg/jSNkjp15-61AmvXwphcq [place] HospitalGlucose [Mass/Vol]159 mg/dL High65 - 99 mg/dLProMercy Hospital SystemInterpretation and review of laboratory resultsAbnormalProMercy Hospital SystemProMercy Hospital SystemGlucose [Mass/Vol] 159 mg/sNMvbi86-77DwkCmzrrn [place] HospitalGlucose [Mass/Vol]138 mg/aBLlrl73 - 99 mg/dLProMercy Hospital SystemInterpretation and review of laboratory results AbnormalProAurora Health Center SystemGlucose [Mass/Vol]141 mg/eWBikt95 - 99 mg/dLProMercy Hospital SystemInterpretation and review of laboratory resultsAbnormalMarshfield Medical Center Beaver Dam SystemGlucose [Mass/Vol]141 mg/yPDgol68-11TebQmgwgu [place] HospitalGlucose [Mass/Vol]138 mg/dL Vlsi72-99FpxFwtldb [place] HospitalGlucose [Mass/Vol]131 mg/eTLznj37 - 99 mg/dL [facility] SystemInterpretation and review of laboratory resultsAbnormal [facility] SystemGlucose [Mass/Vol]131 mg/dLHigh 65-99S[facility] Hospital LimaLIVER PANELon 85-89-9959Piwkyur [Mass/Vol]3.0 g/dL Low3.2-5.3PThe Surgical Hospital at Southwoods HospitalComment on above:Performed By: #### CBC, BMP, LIVR, 89359-8, 2777-1 ####[facility] ([id number])[address], [address] [place] [address]BYX [Catalytic activity/Vol]82 U/LNormal 39-130[facility] HospitalComment on above:Performed By: #### CBC, BMP, LIVR, 40026-9, 2777-1 ####[facility] ([id number])[address], [address] [place] [place], [place] [address]ZHS [Catalytic activity/Vol]11 U/LNormal0-40 ProMbryce hospitala [place]eport HospitalComment on above:Performed By: #### CBC, BMP, LIVR, , 1 ####[facility] ([id number])[address], [address], [place] [address]YBX [Catalytic activity/Vol]11 U/LNormal0-41ProKettering Health Preble HospitalComment on above:Performed By: #### CBC, BMP, LIVR, , 2776-02 ####[facility] ([id number])[address], [address], [place] [address]Gcylnkhyk [Mass/Vol]0.9 mg/dLNormal0.3-1.2Pro[facility] HospitalComment on above:Performed By: #### CBC, BMP, LIVR, , 2776-02 ####[facility] ([id number])[address], [address] [address]Estqsambu.direct [Mass/Vol]0.2 mg/dLNormal0.0-0.4ProKettering Health Preble Hospital Comment on above:Performed By: #### CBC, BMP, LIVR, , 2776-02 ####[facility] ([id number])[address], [address] [place] [address], [place] [address] Protein [Mass/Vol]6.5 g/dLNormal6.0-8.0ProBarney Children'S Medical CenterComment on above:Performed By: #### CBC, BMP, LIVR, , 2776-02 ####[facility] ([id number])[address], [address]TOK[facility] [place], [place] [address]Pkxgh panelon 97-74-7115Ksimbby [Mass/Vol]3 g/dLLow3.2 - 5.3 g/dLProPremier Health Atrium Medical CenterALP [Catalytic activity/Vol]82 U/L39 - 130 U/LPrKettering Health Behavioral Medical Center SystemALT No additional P-5'-P [Catalytic activity/Vol]11 U/L0 - 40 U/LPrKettering Health Behavioral Medical Center SystemAST [Catalytic activity/Vol]11 U/L0 - 41 U/[facility] System Bilirubin [Mass/Vol]0.9 mg/dL0.3 - 1.2 mg/dLMiddletown Hospital Bilirubin.direct [Mass/Vol]0.2 mg/dL0.0 - 0.4 mg/dLMiddletown Hospital Protein [Mass/Vol]6.5 g/dL6.0 - 8.0 g/dLMiddletown HospitalMAGNESIUMon 01-40-0269Tgjancmga [Mass/Vol]2.0 mg/dLNormal1.8-2.6[facility] Comment on above:Performed By: #### CBC, BMP, LIVR, 20858-5, 2777-1 ####[facility] ([id number])[address] [facility], [address] [place] [address] Magnesiumon 82-71-6506Ijpfbhgce [Mass/Vol]2 mg/dL1.8 - 2.6 mg/dLMiddletown HospitalNo Panel Informationon 30-51-9114Stcrgvwilvdkas and review of laboratory resultsAbnormalWashington Health SystemPHOSPHORUSon 90-98-4144Eihoyvsww [Mass/Vol]3.7 mg/dLNormal2.4-4.9[facility] Comment on above:Performed By: #### CBC, BMP, LIVR, 55379-4, 2777-1 ####[facility] ([id number])[address] [facility] [facility], [address] [place] [address] Phosphoruson 27-63-4143Jmpttdlxp [Mass/Vol]3.7 mg/dL2.4 - 4.9 mg/dLMiddletown HospitalRF Guidance for endoscopy of Biliary ducts and Pancreatic duct-- W contrast retrogradeon 44-47-3282MZ ERCP BILIARY DUCT CLINICAL INFORMATION: . ERCP. TECHNIQUE/PROCEDURE: Intraprocedural fluoroscopy without radiologist supervision. Reference air kerma: 91.73 mGy IMPRESSION: Please refer to intraprocedural report for further details. Finalized by Mc Ventura MD on 11/26/2023 12:09 PMSECTRAMc Dominguez MD - 11/26/2023 [place] ERCP BILIARY DUCT CLINICAL INFORMATION: . ERCP. TECHNIQUE/PROCEDURE: Intraprocedural fluoroscopy without radiologist supervision. Reference air kerma: 91.73 mGy IMPRESSION: Please refer to intraprocedural report for further details. Finalized by Mc Ventura MD on 11/26/2023 12:09 PM [facility] HospitalRadiology Study observation (narrative)Middletown HospitalRF Guidance for endoscopy of Biliary ducts and Pancreatic duct-- W contrast retrogradeOrdered By: Mc Ventura on 44-01-3727LilFkufuzKettering Health Preble Work Phone: ABO Rh Repeaton [phone] Langone Tisch Hospital Rh Nom (Bld)NegativeWashington Health SystemABOOMiddletown HospitalRh Nom (Bld)NegativeWashington Health System APTTon 76-41-5888dRPB Coag (PPP) [Time]33 [facility] HospitalBASI METABOLIC PANLon 18-76-3571Weday gap [Moles/Vol]17 mmol/LHigh5-15SCCI Hospital LimaComment on above:Performed By: #### CBC, PINR, 95356-5, BMP, LIVR, 91209-2, 2777-1 #### [facility] ([id number]) [address], [address] [place], [place] [address]Ewkiyxn [Mass/Vol]9.0 mg/dLNormal8.5-10.5PFlower HospitalComment on above:Performed By: #### CBC, PINR, 22976-7, BMP, LIVR, 95247-5, 2777-1 #### [facility] ([id number]) [address], [address] [place], [place] [address]Nyntsmgs [Moles/Vol]106 mmol/LFkstpp51-096CpkFbcukh [place] HospitalComment on above:Performed By: #### CBC, PINR, 70266-7, BMP, LIVR, , 2776-02 #### [facility] ([id number]) [address], [address] [place], [place] [address]UP0 [Moles/Vol]18 mmol/SDvo24-80IniKmnzbgMercy Health St. Elizabeth Youngstown HospitalComment on above:Performed By: #### CBC, PINR, 15832-9, BMP, LIVR, 27935-9, 2776-02 #### [facility] ([id number]) [address], [address] [place], [place] [address]Pfmsaopqst [Mass/Vol]1.06 mg/dLNormal0.60-1.30ProBarney Children'S Medical CenterComment on above:Result Comment: METHOD TRACEABLE TO IDMS STANDARD Performed By: #### CBC, PINR, 73052-1, BMP, LIVR, , 2776-02 #### [facility] ([id number]) [address], [address] [place], [place] [address]MTU/1.73 sq M.predicted among non-blacks MDRD (S/P/Bld) [Vol rate/Area]80 mL/min/{1.73_m2}Normal>59ProBarney Children'S Medical CenterComment on above: Result Comment: Reported eGFR is based on the CKD-EPI 1 equation that does not use a race coefficient.Performed By: #### CBC, PINR, 58025-1, BMP, LIVR, 35091-5, 2776-02 #### [facility] ([id number]) [address], [address] [place], [place] [address]Xonexmw [Mass/Vol]156 mg/yBZehu47-97HqqHhmqkm [facility] Comment on above:Performed By: #### CBC, PINR, 89428-5, BMP, LIVR, 80688-1, 2776-1 #### [facility] ([id number]) [address], [address] [place], [place] [address]Nwqeobwkk [Moles/Vol]4.2 mmol/LNormal3.5-5.0ProBarney Children'S Medical CenterComment on above:Performed By: #### CBC, PINR, 94562-5, BMP, LIVR, 75169-0, 2776-1 #### [facility] ([id number]) [address], [address] [place], [place] [address]Kcyxwv [Moles/Vol]141 mmol/QDdeqib336-267WrtHrxvvt [place] HospitalComment on above:Performed By: #### CBC, PINR, 74626-5, BMP, LIVR, 07687-8, 2776-1 #### [facility] ([id number]) [address], [address] [place], [place] [address]Wvwo nitrogen [Mass/Vol]11 mg/dLNormal5-27ProKettering Health Preble HospitalComment on above:Performed By: #### CBC, PINR, 63206-7, BMP, LIVR, 04707-3, 2776-1 #### [facility] ([id number]) [address], [address] [place] [address]Xajky Metabolic Panelon 84-08-4119Xpdyg gap [Moles/Vol]17 mmol/L High5 - 15 mmol/LProMedica Health SystemCalcium [Mass/Vol]9 mg/dL8.5 - 10.5 mg/dLProMedica Health SystemChloride [Moles/Vol]106 mmol/L98 - 109 mmol/L [facility] SystemCO2 [Moles/Vol]18 mmol/LLow22 - 32 mmol/LProMedica Health SystemCreatinine [Mass/Vol]1.06 mg/dL0.60 - 1.30 mg/dLProMedica Health System Comment on above:METHOD TRACEABLE TO IDMS STANDARDeGFR (CKD-EPI)non-race zzqnuqmll95- PINFProMedica Health SystemComment on above: Reported eGFR is based on the CKD-EPI 2020 equation that does not use a race coefficient. Glucose [Mass/Vol]156 mg/nWDtrl05 - 99 mg/dLMiddletown HospitalPotassium [Moles/Vol]4.2 mmol/L3.5 - 5.0 mmol/LPrKettering Health Behavioral Medical Center SystemSodium [Moles/Vol] 141 mmol/L134 - 146 mmol/LPrKettering Health Behavioral Medical Center SystemUrea nitrogen [Mass/Vol]11 mg/dL5 - 27 mg/dLMiddletown HospitalBilirubin, fluidon 85-45-7899Cdxxloeqt (Body fld) [Mass/Vol]mg/dLmg/dLDuke University Hospitalpecimen type Nom (Spec) ASPIRATEMiddletown HospitalComment on above:CLAUDIO [facility] CBC without diffon 70-97-2076Xqynoleudey distribution width (RBC) [Ratio]15.7 % High11.5 - 15.0 %Middletown HospitalHematocrit (Bld) [Volume fraction]39.7 % 39 - 49 %M[facility]own HospitalHemoglobin (Bld) [Mass/Vol]13.6 g/dL13.0 - 17.0 g/dLMiddletown HospitalInterpretation and review of laboratory results AbnormalMiddletown HospitalMCH (RBC) [Entitic mass]33.6 pg27 - 34 pg [facility] HospitalMCHC (RBC) [Mass/Vol]34.3 g/dL32 - 36 g/dLMiddletown HospitalMCV (RBC) [Entitic vol]98 fL80 - 100 [facility] Platelet mean volume (Bld) [Entitic vol]7.6 fL7 - 12 [facility] Platelets (Bld) [#/Vol]216 10*3/[facility] HospitalRBC (Bld) [#/Vol]4.05 10*6/uLLowMiddletown HospitalWBC corrected for nucl RBC Auto (Bld) [#/Vol] 9.9Washington Health SystemCOMPLETE BLOOD COUNTon 75-08-1057Yafzghnymfm distribution width (RBC) [Ratio]15.7 %High11.5-15.0 [facility] HospitalComment on above:Performed By: #### CBC, PINR, 07312-8, BMP, LIVR, 61626-7, 2776-02 #### [facility] ([id number]) [address], [address] [place], [place] [address]Qhspvenepo (Bld) [Volume fraction]39.7 %Exgxav28-62EsgFfmbnm Curtis HospitalComment on above:Performed By: #### CBC, PINR, 03765-6, BMP, LIVR, 92693-6, 2776-02 #### [facility] ([id number]) [address], [address] [place], [place] [address]Fvmkppxmca (Bld) [Mass/Vol]13.6 g/cAZbofeh42.0-17.0ProMedica Curtis HospitalComment on above:Performed By: #### CBC, PINR, 92263-1, BMP, LIVR, , 2776-02 #### [facility] ([id number]) [address], [address] [place], [place] [address]HUM (RBC) [Entitic mass]33.6 owJwxutf69-82GuaTmbhvx Curtis HospitalComment on above:Performed By: #### CBC, PINR, 72247-6, BMP, LIVR, 16901-0, 2776-02 #### [facility] ([id number]) [address], [address] [place], [place] [address]OGBZ (RBC) [Mass/Vol]34.3 g/tWHbyljc78-33MeuMydmww Curtis HospitalComment on above:Performed By: #### CBC, PINR, 96413-3, BMP, LIVR, 27197-9, 2776-02 #### [facility] ([id number]) [address], [address] [place], [place] [address]NIB (RBC) [Entitic vol]98 uTIhjodl54-757VizTzxvls Curtis HospitalComment on above:Performed By: #### CBC, PINR, 73690-2, BMP, LIVR, 47592-1, 2776-1 #### [facility] ([id number]) [address], [address] [place], [place] [address]Thkmbbjt mean volume (Bld) [Entitic vol]7.6 fLNormal7-12 [facility] HospitalComment on above:Performed By: #### CBC, PINR, 34365-5, BMP, LIVR, 06365-8, 2776- #### [facility] ([id number]) [address], [address] [place], [place] [address]Xhlpapteg (Bld) [#/Vol]216 10*3/nCIgcnlr723-659RuqCfkszg Curtis HospitalComment on above:Performed By: #### CBC, PINR, 57118-2, BMP, LIVR, 13545-0, 2776- #### [facility] ([id number]) [address], [address] [place], [place] [address]UOT COUNT4.05 X10E12/LLow4.10-5.70[facility] Comment on above:Performed By: #### CBC, PINR, 63154-5, BMP, LIVR, 65534-1, 1 #### [facility] ([id number]) [address], [address] [place], [place] [address]XVK (Bld) [#/Vol]9.9 10*3/uLNormal4.0-11.0ProMedica Curtis HospitalComment on above:Performed By: #### CBC, PINR, 95149-2, BMP, LIVR, 64559-9, 2776-1 #### [facility] ([id number]) [address], [address] [place], [place] [address]XZZVA BILIRUBIINon 10-41-3176CUOZO BILIRUBIN>60.0NormalProMedica Curtis HospitalComment on above:Performed By: #### FTBIL ####[facility] ([id number])[address] [facility], [address] [place] [address]HTRJ SPECIMEN TYPEASPIRATENormalSCCI Hospital LimaComment on above:Result Comment: CLAUDIO DRAINPerformed By: #### FTBIL ####[facility] ([id number])[address] [facility], [address] [place] [address]Ymrqhsj Glucometer (BldC) [Mass/Vol]on 37-40-4460Fyeibul [Mass/Vol]141 mg/lUIuqb88 - 99 mg/dLMiddletown Hospital Interpretation and review of laboratory resultsAbnoMarshfield Medical Center Beaver Dam SystemGlucose [Mass/Vol]141 mg/eUMhpf19-98BeeKxzseyBarney Children'S Medical CenterGlucose [Mass/Vol]156 mg/uEWjji64 - 99 mg/dLMiddletown Hospital Interpretation and review of laboratory resultsAbnoMarshfield Medical Center Beaver Dam SystemGlucose [Mass/Vol]156 mg/aCCvrt15-57IvuJfenhqBarney Children'S Medical CenterGlucose [Mass/Vol]146 mg/gRKnvp04 - 99 mg/dLMiddletown Hospital Interpretation and review of laboratory resultsAbnoMarshfield Medical Center Beaver Dam SystemGlucose [Mass/Vol]146 mg/kXCdhs51-74YlrNwcoimBarney Children'S Medical CenterGlucose [Mass/Vol]153 mg/mUYcxo86 - 99 mg/dLMiddletown Hospital Interpretation and review of laboratory resultsAbOutagamie County Health Center SystemGlucose [Mass/Vol]153 mg/bKAshu19-98JcsVgtjdfSCCI Hospital LimaLIVER PANELon 76-02-7371Ekbryob [Mass/Vol]3.2 g/dLNormal3.2-5.3[facility] County HospitalComment on above:Performed By: #### CBC, PINR, 55243-2, BMP, LIVR, 36849-8, 2777-1 #### [facility] ([id number]) [address] [facility], [address] [place] [address]RUW [Catalytic activity/Vol]93 U/TCqjpkt51-616PntBeppgy Curtis HospitalComment on above:Performed By: #### CBC, PINR, 71234-6, BMP, LIVR, 82381-7, 1 #### [facility] ([id number]) [address], [address] [place], [place] [address]WRI [Catalytic activity/Vol]16 U/LNormal0-40Pro[facility] Curtis HospitalComment on above:Performed By: #### CBC, PINR, 35909-2, BMP, LIVR, 18892-1, 2776-02 #### [facility] ([id number]) [address], [address] [place], [place] [address]FQG [Catalytic activity/Vol]16 U/LNormal0-41Pro[facility] HospitalComment on above:Performed By: #### CBC, PINR, 75961-5, BMP, LIVR, 08449-3, 2776-02 #### [facility] ([id number]) [address], [address] [place], [place] [address]Ehyqmzhvq [Mass/Vol]1.3 mg/dLHigh0.3-1.2ProMedica Curtis HospitalComment on above:Performed By: #### CBC, PINR, 86242-8, BMP, LIVR, 02177-9, 2776-02 #### [facility] ([id number]) [address], [address] [place], [place] [address]Mxilafvdr.direct [Mass/Vol]0.2 mg/dLNormal0.0-0.4ProMedica Curtis HospitalComment on above:Performed By: #### CBC, PINR, 09026-8, BMP, LIVR, 61031-7, 1 #### [facility] ([id number]) [address], [address] [place], [place] [address]Vzpkgfl [Mass/Vol]6.7 g/dLNormal6.0-8.0[facility] Comment on above:Performed By: #### CBC, PINR, 23140-5, BMP, LIVR, 00163-1, 2777-1 #### [facility] ([id number]) [address] [facility], [address] [place], [place] [address]Qzwxp panelon 26-92-2066Grsiwei [Mass/Vol]3.2 g/dL3.2 - 5.3 g/dL [facility] SystemALP [Catalytic activity/Vol]93 U/L39 - 130 U/LProMedica Health SystemALT No additional P-5'-P [Catalytic activity/Vol]16 U/L0 - 40 U/L [facility] SystemAST [Catalytic activity/Vol]16 U/L0 - 41 U/LPrKettering Health Behavioral Medical Center SystemBilirubin [Mass/Vol]1.3 mg/dLHigh0.3 - 1.2 mg/dLMemorial Health System Marietta Memorial Hospital SystemBilirubin.direct [Mass/Vol]0.2 mg/dL0.0 - 0.4 mg/dLMemorial Health System Marietta Memorial Hospital System Protein [Mass/Vol]6.7 g/dL6.0 - 8.0 g/dLMiddletown HospitalMAGNESIUMon 48-13-4444Fecnzqlja [Mass/Vol]1.8 mg/dLNormal1.8-2.6[facility] Comment on above:Performed By: #### CBC, PINR, 95523-2, BMP, LIVR, 12016-6, 2777-1 #### [facility] ([id number]) [address] [facility], [address] [place], [place] [address]Nafyxxjaecl 16-93-7735Ztnyneosm [Mass/Vol]1.8 mg/dL1.8 - 2.6 mg/dLMiddletown HospitalNo Panel Informationon 19-48-1788Mhadqmsnvsisww and review of laboratory resultsAbnormalProPremier Health Atrium Medical CenterProMercy Hospital SystemProMercy Hospital SystemPHOSPHORUSon 54-70-9939Lewihkjga [Mass/Vol]3.8 mg/dLNormal2.4-4.9S[facility] Hospital LimaComment on above:Performed By: #### CBC, PINR, 23171-8, BMP, LIVR, 00882-9, 2777-1 #### [facility] ([id number]) [address] [place], [place] [address]BRYXIYX AND INRon 93-32-0339EBG Coag (PPP) [Relative time]1.1 {INR}Normal0.8-1.1PFlower HospitalComment on above:Performed By: #### CBC, PINR, 58579-1, BMP, LIVR, 98242-6, 2777-1 #### [facility] ([id number]) [address], [address] [place], [place] [address]GM Coag (PPP) [Time]12.9 sNormal9.8-13.2PFlower HospitalComment on above:Performed By: #### CBC, PINR, 87682-0, BMP, LIVR, 56252-8, 2777-1 #### [facility] ([id number]) [address], [address] [place], [place] [address]Fjqopalwifsg 15-73-8459Wmvesllce [Mass/Vol]3.8 mg/dL2.4 - 4.9 mg/dLMiddletown HospitalProtime & INRon 56-16-5119WSR Coag (PPP) [Relative time]1.1 {INR}[facility]letown HospitalPT Coag (PPP) [Time]12.9 [facility] HospitalType and screenon [id number] Health SystemRh Nom (Bld) NegativeMiddletown HospitalProPremier Health Atrium Medical CenterXR CHEST 1 VWon 11-25-2023 XR CHEST 1 VWXR CHEST 1 VW Single view chest History: Difficulty breathing, shortness of breath. Preoperative evaluation Comparison: 11/21/2023 Findings: cardiomediastinal silhouette within normal limits. No focal consolidation or effusion. Perihilar atelectasis. No measurable pneumothorax. Impression: Perihilar atelectasis and/or interstitial edema Finalized by Michelet Damian MD on 11/25/2023 5:07 AMNormalSCCI Hospital LimaXR Chest Single viewon 81-52-7324Qgjdea view chest History: Difficulty breathing, shortness of breath. Preoperative evaluation Comparison: 11/21/2023 Findings: cardiomediastinal silhouette within normal limits. No focal consolidation or effusion. Perihilar atelectasis. No measurable pneumothorax. Impression: Perihilar atelectasis and/or interstitial edema Finalized by Michelet Damian MD on 11/25/2023 5:07 Michelet Mayorga MD - 11/25/2023 Single view chest History: Difficulty breathing, shortness of breath. Preoperative evaluation Comparison: 11/21/2023 Findings: cardiomediastinal silhouette within normal limits. No focal consolidation or effusion. Perihilar atelectasis. No measurable pneumothorax. Impression: Perihilar atelectasis and/or interstitial edema Finalized by Michelet Damian MD on 11/25/2023 5:07 AM [facility] HospitalRadiology Study observation (narrative)[facility] HospitalXR Chest Single viewOrdered By: Michelet Damian on [id number] Health Preble Work Phone: aPTT Coag (PPP) [Time]on [id number] Coag (Bld) [Time]33 [id number] Hospital LimaComment on above:Performed By: #### CBC, PINR, 60864-1, BMP, LIVR, 70574-3, 2777-1 #### [facility] ([id number]) [address], [address] [place], [place] [address]QBR AND AUTO DIFFon [id number] BASOPHIL0.1 X10E9/LNormal 0.0-0.2PEast [place] City HospitalComment on above:Performed By: #### CBCA, BMP, LIVR #### [facility] ([id number]) [address], [address] [place], [place] [address]JMYAELBQ NEUTROPHIL7.9 X10E9/LHigh1.5-6.6[facility] HospitalComment on above:Performed By: #### CBCA, BMP, LIVR #### [facility] ([id number]) [address], [address] [place], [place] [address]Ueyhyzjea/100 WBC (Bld)0.6 %[facility] Comment on above:Performed By: #### CBCA, BMP, LIVR #### [facility] ([id number]) [address], [address] [place], [place] [address]Xjgilcuxhmu (Bld) [#/Vol]0.0 10*3/uLNormal0.0-0.4[facility] HospitalComment on above:Performed By: #### CBCA, BMP, LIVR #### [facility] ([id number]) [address], [address] [place], [place] [address]Sybqcxfkqgj/100 WBC (Bld)0.0 %[facility] Comment on above:Performed By: #### CBCA, BMP, LIVR #### [facility] ([id number]) [address] [address] [place], [place] [address]Aisjmpbjeab distribution width (RBC) [Ratio]15.2 %High11.5-15.0 [facility] HospitalComment on above:Performed By: #### CBCA, BMP, LIVR #### [facility] ([id number]) [address], [address] [place], [place] [address]Jdimvpbtml (Bld) [Volume fraction]39.4 %Fyhmaf57-01TrqNfcvkwHarrison Community HospitalComment on above:Performed By: #### CBCA, BMP, LIVR #### [facility] ([id number]) [address], [address] [place], [place] [address]Oygrjlrnmi (Bld) [Mass/Vol]13.2 g/uHIvsuwo56.0-17.0[facility] HospitalComment on above:Performed By: #### CBCA, BMP, LIVR #### [facility] ([id number]) [address], [facility] [address] [place] [address]Oivqrbohall (Bld) [#/Vol]1.7 10*3/uLNormal1.0-3.5PEast [place] City HospitalComment on above:Performed By: #### CBCA, BMP, LIVR #### [facility] ([id number]) [address], [facility] [address] [place], [place] [address]Twbkysqohwj/100 WBC (Bld)15.8 %NormalProThe Hospital At [facility] Comment on above:Performed By: #### CBCA, BMP, LIVR #### [facility] ([id number]) [address], [address] [place], [place] [address]DDP (RBC) [Entitic mass]32.7 kvUfcpsv99-60DwrSwoabsThe Hospital At Westlake Medical CenterComment on above:Performed By: #### CBCA, BMP, LIVR #### [facility] ([id number]) [address], [facility] [address] [place], [place] [address]MFIQ (RBC) [Mass/Vol]33.6 g/hKCvgykh32-85AloYihwdiThe Hospital At Westlake Medical CenterComment on above:Performed By: #### CBCA, BMP, LIVR #### [facility] ([id number]) [address], [address] [place], [place] [address]HJP (RBC) [Entitic vol]97 kRUdkhpv82-598EhfCrfivq [facility] HospitalComment on above:Performed By: #### CBCA, BMP, LIVR #### [facility] ([id number]) [address], [address] [place], [place] [address]Olxfzouyh (Bld) [#/Vol]0.9 10*3/uLNormal0-0.9[facility] HospitalComment on above:Performed By: #### CBCA, BMP, LIVR #### [facility] ([id number]) [address], [address] [place] [address]Pqrpftqlr/100 WBC (Bld)8.6 %[facility] Comment on above:Performed By: #### CBCA, BMP, LIVR #### [facility] ([id number]) [address], [address] [place], [place] [address]Akyndbnfwnu/100 WBC (Bld)75.0 %[facility] Comment on above:Performed By: #### CBCA, BMP, LIVR #### [facility] ([id number]) [address], [address] [place] [address]Bcajqndq mean volume (Bld) [Entitic vol]7.6 fLNormal7-12 [facility] HospitalComment on above:Performed By: #### CBCA, BMP, LIVR #### [facility] ([id number]) [address], [address] [place], [place] [address]Gfnahbmpv (Bld) [#/Vol]246 10*3/hBMguhat729-481SbkVycyko [facility] HospitalComment on above:Performed By: #### CBCA, BMP, LIVR #### [facility] ([id number]) [address], [address] [place], [place] [address]EOD COUNT4.04 X10E12/LLow4.10-5.70[facility] Comment on above:Performed By: #### CBCA, BMP, LIVR #### [facility] ([id number]) [address], [address] [place] [address]UZN (Bld) [#/Vol]10.5 10*3/uLNormal4.0-11.0[facility] HospitalComment on above:Performed By: #### CBCA, BMP, LIVR #### [facility] ([id number]) [address] [place], [place] [address]IXI auto differentialon 92-23-3256Odixrsdqb (Bld) [#/Vol]0.1 10*3/uLMemorial Health System Marietta Memorial Hospital SystemBasophils/100 WBC (Bld)0.6 %[facility] SystemEosinophils (Bld) [#/Vol]0 10*3/uLMemorial Health System Marietta Memorial Hospital SystemEosinophils/100 WBC (Bld)0 %[facility]own HospitalErythrocyte distribution width (RBC) [Ratio] 15.2 %High11.5 - 15.0 %[facility] HospitalHematocrit (Bld) [Volume fraction] 39.4 %39 - 49 %[facility] HospitalHemoglobin (Bld) [Mass/Vol]13.2 g/dL13.0 - 17.0 g/dLMiddletown HospitalInterpretation and review of laboratory results AbnormalMiddletown HospitalLymphocytes (Bld) [#/Vol]1.7 10*3/uLMiddletown HospitalLymphocytes/100 WBC (Bld)15.8 %[facility] HospitalMCH (RBC) [Entitic mass]32.7 pg27 - 34 [facility] HospitalMCHC (RBC) [Mass/Vol]33.6 g/dL32 - 36 g/dLMiddletown HospitalMCV (RBC) [Entitic vol]97 fL80 - 100 fL [facility] HospitalMonocytes (Bld) [#/Vol]0.9 10*3/uLMiddletown Hospital Monocytes/100 WBC (Bld)8.6 %[facility] HospitalNeutrophils (Bld) [#/Vol]7.9 10*3/uLHighMiddletown HospitalNeutrophils/100 WBC (Bld)75 %[facility] HospitalPlatelet mean volume (Bld) [Entitic vol]7.6 fL7 - 12 [facility] SystemPlatelets (Bld) [#/Vol]246 10*3/[facility] HospitalRBC (Bld) [#/Vol] 4.04 10*6/[facility]ick[facility] HospitalWBC corrected for nucl RBC Auto (Bld) [#/Vol]10.5PPenn Presbyterian Medical CenterCOMPREHENSIVE METABOLIC PANELon 75-10-2875Ywxjvuv [Mass/Vol]2.9 g/dLLow3.2-5.3PEast [place] City HospitalComment on above:Performed By: #### CBCA, BMP, LIVR #### [facility] ([id number]) [address], [address] [place], [place] [address]NUM [Catalytic activity/Vol]100 U/CBxcugf49-084BagWxggbuHarrison Community HospitalComment on above:Performed By: #### CBCA, BMP, LIVR #### [facility] ([id number]) [address], [address] [place], [place] [address]DDV [Catalytic activity/Vol]27 U/LNormal0-40[facility] HospitalComment on above:Performed By: #### CBCA, BMP, LIVR #### [facility] ([id number]) [address], [address] [place], [place] [address]Kxgbt gap [Moles/Vol]14 mmol/LNormal5-15[facility] HospitalComment on above:Performed By: #### CBCA, BMP, LIVR #### [facility] ([id number]) [address], [address] [place], [place] [address]TGZ [Catalytic activity/Vol]32 U/LNormal0-41[facility] HospitalComment on above:Performed By: #### CBCA, BMP, LIVR #### [facility] ([id number]) [address], [address] [place], [place] [address]Bqevhgvgd [Mass/Vol]2.2 mg/dLHigh0.3-1.2PEast [place] City HospitalComment on above:Performed By: #### IRASEMA BMP, LIVR #### [facility] ([id number]) [address] [address] [place], [place] [address]Fidruiy [Mass/Vol]8.6 mg/dLNormal8.5-10.5PEast [place] [facility] HospitalComment on above:Performed By: #### IRASEMA BMP, LIVR #### [facility] ([id number]) [address], [address] [place], [place] [address]Nmbkdsaq [Moles/Vol]106 mmol/SYttaoh69-356HmjArshkuThe Hospital At Westlake Medical CenterComment on above:Performed By: #### YUMIKO VILLALPANDO, LIVR #### [facility] ([id number]) [address], [address] [place], [place] [address]OW6 [Moles/Vol]17 mmol/WYee83-50KaqKjojdgEast [facility] Comment on above:Performed By: #### YUMIKO VILLALPANDO, LIVR #### [facility] ([id number]) [address] [address] [place], [place] [address]Rvapxvzsbv [Mass/Vol]1.29 mg/dLHigh0.70-1.20[facility] Community HospitalComment on above:Result Comment: METHOD TRACEABLE TO IDMS STANDARD Performed By: #### YUMIKO VILLALPANDO, LIVR #### [facility] ([id number]) [address] [address] [place], [place] [address]OTY/1.73 sq M.predicted among non-blacks MDRD (S/P/Bld) [Vol rate/Area]63 mL/min/{1.73_m2}Normal>59ProThe Hospital At Westlake Medical CenterComment on above:Result Comment: Reported eGFR is based on the CKD-EPI 2020 equation that does not use a race coefficient.Performed By: #### IRASEMA, BMP, LIVR #### [facility] ([id number]) [address] [address] [place], [place] [address]Iwsgsdm [Mass/Vol]207 mg/pYHmol42-89ArqJrohmlHarrison Community Hospital Comment on above:Performed By: #### YUMIKO VILLALPANDO, LIVR #### [facility] ([id number]) [address], [address] [place], [place] [address]Murpaujiv [Moles/Vol]4.2 mmol/LNormal3.5-5.0ProThe Hospital At Westlake Medical CenterComment on above:Performed By: #### YUMIKO VILLALPANDO, LIVR #### [facility] ([id number]) [address], [facility] [address] [place], [place] [address]Wjfcwbb [Mass/Vol]6.7 g/dLNormal6.0-8.0ProThe Hospital At Westlake Medical CenterComment on above:Performed By: #### YUMIKO VILLALPANDO, LIVR #### [facility] ([id number]) [address], [address] [place], [place] [address]Iozvps [Moles/Vol]137 mmol/FKjpluj097-029NqnLyaoxo [facility] HospitalComment on above:Performed By: #### YUMIKO VILLALPANDO, LIVR #### [facility] ([id number]) [address], [address] [address]Ajge nitrogen [Mass/Vol]13 mg/dLNormal5-27ProThe Hospital At Westlake Medical CenterComment on above:Performed By: #### YUMIKO VILLALPANDO, LIVR #### [facility] ([id number]) [address], [address] [place], [place] [address]Gbugusjujaepl metabolic panelon 93-27-3240Rfkzymo [Mass/Vol]2.9 g/dLLow3.2 - 5.3 g/dLProMedica Health SystemALP [Catalytic activity/Vol]100 U/L 39 - 130 U/LProMedica Health SystemALT No additional P-5'-P [Catalytic activity/Vol]27 U/L0 - 40 U/LProMedica Health SystemAnion gap [Moles/Vol]14 mmol/L5 - 15 mmol/LProMedica Health SystemAST [Catalytic activity/Vol]32 U/L0 - 41 U/[facility] SystemBilirubin [Mass/Vol]2.2 mg/dLHigh0.3 - 1.2 mg/dL [facility] HospitalCalcium [Mass/Vol]8.6 mg/dL8.5 - 10.5 mg/dLMemorial Health System [facility] Hospital SystemChloride [Moles/Vol]106 mmol/L98 - 109 mmol/[facility] SystemCO2 [Moles/Vol]17 mmol/LLow22 - 32 mmol/[facility] SystemCreatinine [Mass/Vol]1.29 mg/dLHigh0.70 - 1.20 mg/dLMiddletown HospitalComment on above:METHOD TRACEABLE TO IDWI STANDARDeGFR (CKD-EPI)non-race qjokqpqsj80- PINF [facility] HospitalComment on above: Reported eGFR is based on the CKD-EPI 2020 equation that does not use a race coefficient. Glucose [Mass/Vol]207 mg/oCGpxb53 - 99 mg/dLMiddletown Hospital Interpretation and review of laboratory resultsAbnoBlue Ridge Regional Hospital Potassium [Moles/Vol]4.2 mmol/L3.5 - 5.0 mmol/[facility] Health SystemProtein [Mass/Vol]6.7 g/dL6.0 - 8.0 g/dLDuke University Hospitalodium [Moles/Vol]137 mmol/L134 - 146 mmol/[facility] SystemUrea nitrogen [Mass/Vol]13 mg/dL5 - 27 mg/dLWashington Health SystemGlucose Glucometer (BldC) [Mass/Vol]on 75-59-4324Rsxfjlm [Mass/Vol]131 mg/bSDrwb11 - 99 mg/dLMiddletown HospitalInterpretation and review of laboratory resultsAbnoHeritage Valley Health SystemGlucose [Mass/Vol]131 mg/rHZecn94-84 [facility] HospitalGlucose [Mass/Vol]142 mg/gEZjzv50 - 99 mg/dLMiddletown HospitalInterpretation and review of laboratory resultsAbnoHeritage Valley Health SystemGlucose [Mass/Vol]142 mg/iWPmwk27-05 [facility] HospitalGlucose [Mass/Vol]209 mg/qBLqgh09 - 99 mg/dLMiddletown HospitalInterpretation and review of laboratory resultsAbnoHeritage Valley Health SystemGlucose [Mass/Vol]209 mg/dJDkxe08-77 [facility] HospitalGlucose [Mass/Vol]213 mg/oLHjip74 - 99 mg/dLMiddletown HospitalInterpretation and review of laboratory resultsAbnoHeritage Valley Health SystemGlucose [Mass/Vol]213 mg/jUGexs04-29 [facility] Community HospitalASPIRATE CULTUREon 30-83-6847Amjvnzhx identified Aer cx Nom (Asp)SPECIMEN NOTES REFRIDGERATED FOR HOURS DUE TO BEING MISPLACED IN PATHOLOGY OVERNIGHT FRIDGE INSTEAD OF GIVEN TO MICRO. THERE IS A SECOND CUP FOR PATHOLOGY. GRAM STAIN 0 to 1 WHITE BLOOD CELLS/LPF 0 SQUAMOUS EPITHELIAL CELLS/LPF FEW GRAM POSITIVE COCCI IN PAIRS AND CHAINS FEW GRAM POSITIVE RODS RARE YEAST SMEAR REVIEWED, RESULTS CONFIRMED CULTURE RESULTS RARE KLEBSIELLA OXYTOCA FEW STREPTOCOCCUS ANGINOSUS FEW NORA GLABRATA [ S = SUSCEPTIBLE R = RESISTANT I = INTERMEDIATE S-DO = Susceptible-dose dependent NS = Non-suscceptible NO = No Interpretation ] Organism: KLEBSIELLA OXYTOCA Antibiotic Interpretation ADELINA Status AMPICILLIN R 16 F AMP/SULBACTAM S 8/4 F CEFAZOLIN UNK <=4 F CLSI interpretive criteria for nonurinary isolates are as follows: <=2 Susceptible, 4 Intermediate, Resistant >=8. Contact Microbiology laboratory if further susceptibility testing for Cefazolin is required. CEFTRIAXONE S <=0.25 F CIPROFLOXACIN S <=0.25 F GENTAMICIN S <=1 F LEVOFLOXACIN S <=0.12 F PIPERACIL/TAZOBACTAM S <=4 F TOBRAMYCIN S <=1 FSusceptibleHarrison Community HospitalComment on above: Performed By: #### CBCA, BMP, LIVR #### [facility] ([id number]) [address] [place], [place] [address]ROW AND AUTO DIFFon [id number] BASOPHIL0.0 X10E9/LNormal 0.0-0.2[facility]iance HospitalComment on above:Performed By: #### CBCA, BMP, LIVR #### [facility] ([id number]) [address], [address] [place], [place] [address]PRLWKJLX NEUTROPHIL4.0 X10E9/LNormal1.5-6.6ProThe Hospital At Westlake Medical CenterComment on above:Performed By: #### CBCA, BMP, LIVR #### [facility] ([id number]) [address], [address] [place], [place] [address]Ujcvymfkk/100 WBC (Bld)0.5 %NormalHarrison Community Hospital Comment on above:Performed By: #### CBCA, BMP, LIVR #### [facility] ([id number]) [address], [address] [place], [place] [address]Iulxbvznyrt (Bld) [#/Vol]0.2 10*3/uLNormal0.0-0.4[facility] HospitalComment on above:Performed By: #### CBCA, BMP, LIVR #### [facility] ([id number]) [address], [address] [place], [place] [address]Outamblxeus/100 WBC (Bld)2.7 %NormalHarrison Community Hospital Comment on above:Performed By: #### CBCA, BMP, LIVR #### [facility] ([id number]) [address], [address] [place], [place] [address]Eoqcjfcwbtp distribution width (RBC) [Ratio]14.8 %Normal 11.5-15.0[facility] HospitalComment on above:Performed By: #### CBCA, BMP, LIVR #### [facility] ([id number]) [address] [address] [place], [place] [address]Ddcychxmtv (Bld) [Volume fraction]38.1 %Oaf51-96PokEatbbuThe Hospital At Westlake Medical CenterComment on above:Performed By: #### CBCA, BMP, LIVR #### [facility] ([id number]) [address], [address] [place], [place] [address]Yrgragqdss (Bld) [Mass/Vol]13.1 g/wNUbhtsv27.0-17.0[facility] HospitalComment on above:Performed By: #### CBCA, BMP, LIVR #### [facility] ([id number]) [address], [address] [place], [place] [address]Yunoaqezsip (Bld) [#/Vol]1.6 10*3/uLNormal1.0-3.5PEast [place] City HospitalComment on above:Performed By: #### CBCA, BMP, LIVR #### [facility] ([id number]) [address], [address] [place], [place] [address]Eifzduyvgoz/100 WBC (Bld)25.4 %NormalProThe Hospital At [facility] Center Comment on above:Performed By: #### CBCA, BMP, LIVR #### [facility] ([id number]) [address], [address] [place], [place] [address]JZZ (RBC) [Entitic mass]32.7 obIlhmzk62-98UqkTfnyjcThe Hospital At Westlake Medical CenterComment on above:Performed By: #### CBCA, BMP, LIVR #### [facility] ([id number]) [address], [address] [place], [place] [address]RAWH (RBC) [Mass/Vol]34.4 g/tPMhtzfg28-08BanYryikuThe Hospital At Westlake Medical CenterComment on above:Performed By: #### CBCA, BMP, LIVR #### [facility] ([id number]) [address], [address] [place], [place] [address]YWR (RBC) [Entitic vol]95 jPXngwuh21-002PobIsopbq [facility] HospitalComment on above:Performed By: #### CBCA, BMP, LIVR #### [facility] ([id number]) [address], [address] [place] [address]Qwfmydjxi (Bld) [#/Vol]0.5 10*3/uLNormal0-0.9[facility] HospitalComment on above:Performed By: #### CBCA, BMP, LIVR #### [facility] ([id number]) [address], [address] [place], [place] [address]Ptefvadyt/100 WBC (Bld)7.2 %NormalHarrison Community Hospital Comment on above:Performed By: #### CBCA, BMP, LIVR #### [facility] ([id number]) [address], [address] [place] [address]Kmszzlltpzu/100 WBC (Bld)64.2 %[facility] Comment on above:Performed By: #### CBCA, BMP, LIVR #### [facility] ([id number]) [address], [address] [place] [address]Vpoipjnr mean volume (Bld) [Entitic vol]7.9 fLNormal7-12 [facility] HospitalComment on above:Performed By: #### CBCA, BMP, LIVR #### [facility] ([id number]) [address], [address] [place] [address]Nijguwxos (Bld) [#/Vol]212 10*3/dUYdlulj869-160WcxPddajr [facility] HospitalComment on above:Performed By: #### CBCA, BMP, LIVR #### [facility] ([id number]) [address], [address] [place] [address]OGR COUNT4.00 X10E12/LLow4.10-5.70[facility] Comment on above:Performed By: #### CBCA, BMP, LIVR #### [facility] ([id number]) [address], [address] [place], [place] [address]IGE (Bld) [#/Vol]6.3 10*3/uLNormal4.0-11.0[facility] HospitalComment on above:Performed By: #### CBCA, BMP, LIVR #### [facility] ([id number]) [address], [address] [place], [place] [address]OLM auto differentialon 70-25-0692Dvqlyowmx (Bld) [#/Vol]0 10*3/uLMiddletown HospitalBasophils/100 WBC (Bld)0.5 %[facility] HospitalEosinophils (Bld) [#/Vol]0.2 10*3/uLMiddletown HospitalEosinophils/100 WBC (Bld)2.7 %[facility] HospitalErythrocyte distribution width (RBC) [Ratio]14.8 %11.5 - 15.0 %[facility] HospitalHematocrit (Bld) [Volume fraction]38.1 %Low39 - 49 %[facility] HospitalHemoglobin (Bld) [Mass/Vol] 13.1 g/dL13.0 - 17.0 g/dLMiddletown HospitalInterpretation and review of laboratory resultsAbnormalMiddletown HospitalLymphocytes (Bld) [#/Vol]1.6 10*3/uLMiddletown HospitalLymphocytes/100 WBC (Bld)25.4 %[facility] HospitalMCH (RBC) [Entitic mass]32.7 pg27 - 34 [facility] HospitalMCHC (RBC) [Mass/Vol]34.4 g/dL32 - 36 g/dLMiddletown HospitalMCV (RBC) [Entitic vol]95 fL80 - 100 [facility] HospitalMonocytes (Bld) [#/Vol]0.5 10*3/uLMiddletown HospitalMonocytes/100 WBC (Bld)7.2 %[facility] HospitalNeutrophils (Bld) [#/Vol]4 10*3/uLMiddletown HospitalNeutrophils/100 WBC (Bld)64.2 % [facility] SystemPlatelet mean volume (Bld) [Entitic vol]7.9 fL7 - 12 fL [facility] SystemPlatelets (Bld) [#/Vol]212 10*3/uLMiddletown Hospital RBC (Bld) [#/Vol]4 10*6/uLLowMiddletown HospitalWBC corrected for nucl RBC Auto (Bld) [#/Vol]6.3PPenn Presbyterian Medical CenterCOMPREHENSIVE METABOLIC PANELon [id number] [Mass/Vol]2.9 g/dLLow3.2-5.3PEast Liverpool City HospitalComment on above:Performed By: #### CBCA, BMP, LIVR #### [facility] ([id number]) [address], [address] [place], [place] [address]JBN [Catalytic activity/Vol]99 U/QRugkwk81-166JtbYfzqqkHarrison Community HospitalComment on above:Performed By: #### CBCA, BMP, LIVR #### [facility] ([id number]) [address], [address] [place], [place] [address]PTG [Catalytic activity/Vol]17 U/LNormal0-40Harrison Community HospitalComment on above:Performed By: #### CBCA, BMP, LIVR #### [facility] ([id number]) [address], [address] [place], [place] [address]Fxfno gap [Moles/Vol]11 mmol/LNormal5-15[facility] HospitalComment on above:Performed By: #### CBCA, BMP, LIVR #### [facility] ([id number]) [address], [address] [place], [place] [address]BTU [Catalytic activity/Vol]18 U/LNormal0-41ProThe Hospital At Westlake Medical CenterComment on above:Performed By: #### CBCA, BMP, LIVR #### [facility] ([id number]) [address], [address] [place], [place] [address]Nztpsquoe [Mass/Vol]1.5 mg/dLHigh0.3-1.2PEast Liverpool City HospitalComment on above:Performed By: #### YUMIKO VILLALPANDO, LIVR #### [facility] ([id number]) [address], [address] [place], [place] [address]Eyklneg [Mass/Vol]8.5 mg/dLNormal8.5-10.5PEast Liverpool City HospitalComment on above:Performed By: #### YUMIKO VILLALPANDO, LIVR #### [facility] ([id number]) [address] [address] [place], [place] [address]Auwpawms [Moles/Vol]107 mmol/YFuhady26-924WqoIwsmomThe Hospital At Westlake Medical CenterComment on above:Performed By: #### YUMIKO VILLALPANDO, LIVR #### [facility] ([id number]) [address], [address] [place], [place] [address]UQ9 [Moles/Vol]21 mmol/XUty60-08BclFqlxeiEast Liverpool City Hospital Comment on above:Performed By: #### YUMIKO VILLALPANDO, LIVR #### [facility] ([id number]) [address], [facility] [address] [place], [place] [address]Rmlhwlxmif [Mass/Vol]1.11 mg/dLNormal0.70-1.20ProThe Hospital At Westlake Medical CenterComment on above:Result Comment: METHOD TRACEABLE TO IDMS STANDARD Performed By: #### YUMIKO VILLALPANDO, LIVR #### [facility] ([id number]) [address] [address] [place], [place] [address]ASA/1.73 sq M.predicted among non-blacks MDRD (S/P/Bld) [Vol rate/Area]76 mL/min/{1.73_m2}Normal>59ProThe Hospital At Westlake Medical CenterComment on above:Result Comment: Reported eGFR is based on the CKD-EPI 2020 equation that does not use a race coefficient.Performed By: #### YUMIKO VILLALPANDO, LIVR #### [facility] ([id number]) [address], [address] [place], [place] [address]Ghtpucm [Mass/Vol]168 mg/vAQxpa12-87NwyWxgwxiThe Hospital At [facility] Medical Center Comment on above:Performed By: #### YUMIKO VILLALPANDO, LIVR #### [facility] ([id number]) [address], [address] [place], [place] [address]Vmpwjggqx [Moles/Vol]3.6 mmol/LNormal3.5-5.0ProThe Hospital At Westlake Medical CenterComment on above:Performed By: #### YUMIKO VILLALPANDO, LIVR #### [facility] ([id number]) [address], [address] [place], [place] [address]Tftktpb [Mass/Vol]6.7 g/dLNormal6.0-8.0ProThe Hospital At Westlake Medical CenterComment on above:Performed By: #### YUMIKO VILLALPANDO, LIVR #### [facility] ([id number]) [address], [address] [place], [place] [address]Wzwalh [Moles/Vol]139 mmol/WOqgris912-903JijHklshw [facility]remont HospitalComment on above:Performed By: #### YUMIKO VILLALPANDO, LIVR #### [facility] ([id number]) [address], [address] [place], [place] [address]Woyb nitrogen [Mass/Vol]10 mg/dLNormal5-27ProThe Hospital At Westlake Medical CenterComment on above:Performed By: #### YUMIKO VILLALPANDO, LIVR #### [facility] ([id number]) [address], [address] [place], [place] [address]Gebgkhknvesca metabolic panelon 90-61-3807Kekyrwo [Mass/Vol]2.9 g/dLLow3.2 - 5.3 g/dLProMercy Hospital SystemALP [Catalytic activity/Vol]99 U/L39 - 130 U/LProMedica Salem Regional Medical Center SystemALT No additional P-5'-P [Catalytic activity/Vol]17 U/L0 - 40 U/[facility] Health SystemAnion gap [Moles/Vol]11 mmol/L5 - 15 mmol/[facility] Health SystemAST [Catalytic activity/Vol]18 U/L0 - 41 U/[facility] SystemBilirubin [Mass/Vol]1.5 mg/dLHigh0.3 - 1.2 mg/dL [facility] HospitalCalcium [Mass/Vol]8.5 mg/dL8.5 - 10.5 mg/dLMiddletown HospitalChloride [Moles/Vol]107 mmol/L98 - 109 mmol/[facility] SystemCO2 [Moles/Vol]21 mmol/LLow22 - 32 mmol/[facility] SystemCreatinine [Mass/Vol]1.11 mg/dL0.70 - 1.20 mg/dLMiddletown HospitalComment on above: METHOD TRACEABLE TO IDWI STANDARDeGFR (CKD-EPI)non-race rqstpvdpy09- PINF [facility] HospitalComment on above: Reported eGFR is based on the CKD-EPI 2020 equation that does not use a race coefficient. Glucose [Mass/Vol]168 mg/aHMkww64 - 99 mg/dLMiddletown Hospital Interpretation and review of laboratory resultsAbHudson Valley Hospital Potassium [Moles/Vol]3.6 mmol/L3.5 - 5.0 mmol/[facility] SystemProtein [Mass/Vol]6.7 g/dL6.0 - 8.0 g/dLDuke University Hospitalodium [Moles/Vol]139 mmol/L134 - 146 mmol/[facility] HospitalUrea nitrogen [Mass/Vol]10 mg/dL5 - 27 mg/dLMiddletown HospitalGlucose Glucometer (BldC) [Mass/Vol]on 45-38-2965Stflooc [Mass/Vol]194 mg/bXKxxr03 - 99 mg/dLMiddletown Hospital Interpretation and review of laboratory resultsAbAspirus Stanley HospitalGlucose [Mass/Vol]194 mg/kMLzfv39-65XcpNknuueHarrison Community HospitalGlucose [Mass/Vol]198 mg/cEBwhy80 - 99 mg/dLMiddletown Hospital Interpretation and review of laboratory resultsAbnoMilwaukee County Behavioral Health Division– MilwaukeeGlucose [Mass/Vol]198 mg/hVDdsj00-79QrvEoavogHarrison Community HospitalGlucose [Mass/Vol]168 mg/pOOntx31 - 99 mg/dLMiddletown Hospital Interpretation and review of laboratory resultsAbAspirus Stanley HospitalGlucose [Mass/Vol]175 mg/yVMklb23 - 99 mg/dLMiddletown HospitalInterpretation and review of laboratory resultsAbnoHeritage Valley Health SystemGlucose [Mass/Vol]175 mg/gKMtlr57-59 [facility] Community HospitalHGB A1C (GLYCO-HGB)on 74-95-4005Quyjhpj [Mass/Vol]214 mg/dLAshtabula General HospitalComment on above:Performed By: #### CBCA, BMP, LIVR #### [facility] ([id number]) [address] [place] [address], [address] [place], [place] [address]WfU9g (Bld) [Mass fraction]9.1 %High4.4-5.6H[facility] Community HospitalComment on above:Result Comment: NOTE ADA Guidelines Result HgbA1c Normal : less than 5.7 % Prediabetes : 5.7 % to 6.4 % Diabetes : > 6.4 % Use with caution in patients with abnormal hemoglobin variants as the half-life of red blood cells and in vivo glycation rates are affected.Performed By: #### CBCA, BMP, LIVR #### [facility] ([id number]) [address] [facility] [place], [place] [address]Rhfhdwcyvv A1con 46-53-0911Dkdhxbw glucose Estimated from glycated hemoglobin (Bld) [Mass/Vol]214 mg/dLMiddletown HospitalHbA1c (Bld) [Mass fraction]9.1 %High4.4 - 5.6 %[facility] HospitalComment on above:NOTE ADA Guidelines Result HgbA1c Normal : less than 5.7 % Prediabetes : 5.7 % to 6.4 % Diabetes : > 6.4 % Use with caution in patients with abnormal hemoglobin variants as the half-life of red blood cells and in vivo glycation rates are affected. Interpretation and review of laboratory resultsAbnormalMiddletown Hospital ProMedica Health SystemMAGNESIUMon 17-06-1995Mzirmdnyh [Mass/Vol]2.1 mg/dLNormal 1.8-2.6ProThe Hospital At Westlake Medical CenterComment on above:Performed By: #### CBCA, BMP, LIVR #### [facility] ([id number]) [address] [place] [address] [address] [place], [place] [address]Magnesiumon 58-28-8462Vcbnudmym [Mass/Vol]2.1 mg/dL1.8 - 2.6 mg/dLMiddletown HospitalNo Panel Informationon 84-62-3989ZavKsfbrm Health SystemSurgical Pathologyon 38-73-0614Wdprsjuq PathologyNoMercy Health Kings Mills HospitalComment on above:Result Comment: [facility] [address] [place] [address] Surgical Pathology Consultation Patient Name:BOO CAPPS:1960 (Age: 63)Gender:MTaken:4Reported:11/26/2023hysician(s):Anahy Cooper MD ([phone])Copy To: Rec. #:[id number]: #[id number] Final Pathologic Diagnosis Gallbladder: Acute and chronic cholecystitis, focally disrupted, with fibrinopurulent exudate, associated fat necrosis and reactive fibrosis. Negative for dysplasia or malignancy. Report Electronically Signed Out 11/26/2023Kelly Almeida MD Interpretation performed at [facility], [address] [place] [address], License number: [id number]. Clinical History Acute cholcystitis. Gross Description Received in formalin labeled JEFRY, gallbladder is a disrupted gallbladder received in 2 pieces,1.8 x 1 x 0.4 cm, and 5 x 3 x 2 cm. The larger fragment displays a blunted end, consistent with fundus, while the opposing end displays a dilated and disrupted neck, up to 1 cm in diameter. Neither adefinitive cystic duct, nor periductal lymph node is identified. The serosa is burgess-pink, focally erythematous, smooth and glistening with a burgess-green softened area, 2 cm in greatest dimension; the hepatic bed is rough and irregular. Within the softened serosa is a 0.8 cm transmural defect. The mucosa is burgess-green, spongy and dull with a focal burgess-pink velvety and glistening area, 1.8 cm in greatest dimension. The wall of the gallbladder ranges from 0.2 to 0.8 cm in thickness. The contents of the specimen jar filtered and no calculi are identified. Punch Machine Operator sections are submitted in cassette A???B. (2, ss, [id number], A???B, m1) [facility]/11/24/2023NS Specimen(s) Received Gallbladder Fee Codes(s): 1; 793[address]KXI AND AUTO DIFFon 95-80-5939MASJDBNI BASOPHIL0.1 X10E9/LNormal0.0-0.2 [facility] HospitalComment on above:Performed By: #### CBCA, BMP, LIVR #### [facility] ([id number]) [address], [address] [place], [place] [address]NJAMPOZR NEUTROPHIL3.6 X10E9/LNormal1.5-6.6[facility] HospitalComment on above:Performed By: #### CBCA, BMP, LIVR #### [facility] ([id number]) [address], [address] [place], [place] [address]Pyvrfzrde/100 WBC (Bld)1.0 %NormalHarrison Community Hospital Comment on above:Performed By: #### CBCA, BMP, LIVR #### [facility] ([id number]) [address], [facility] [address] [place] [address]Jxmbgofzlds (Bld) [#/Vol]0.2 10*3/uLNormal0.0-0.4[facility] HospitalComment on above:Performed By: #### CBCA, BMP, LIVR #### [facility] ([id number]) [address], [facility] [address] [place], [place] [address]Fookxgzzond/100 WBC (Bld)3.7 %NormalHarrison Community Hospital Comment on above:Performed By: #### CBCA, BMP, LIVR #### [facility] ([id number]) [address], [facility] [address] [place], [place] [address]Cratxwhgjso distribution width (RBC) [Ratio]14.8 %Normal 11.5-15.0H[facility] HospitalComment on above:Performed By: #### CBCA, BMP, LIVR #### [facility] ([id number]) [address] [address] [place], [place] [address]Gidhyonixf (Bld) [Volume fraction]40.1 %Rztpek99-80EvhTeammhThe Hospital At Westlake Medical CenterComment on above:Performed By: #### CBCA, BMP, LIVR #### [facility] ([id number]) [address] [address] [place], [place] [address]Vnuaumspop (Bld) [Mass/Vol]13.7 g/hZTboefd06.0-17.0[facility] HospitalComment on above:Performed By: #### CBCA, BMP, LIVR #### [facility] ([id number]) [address] [address] [place], [place] [address]Epkygbjiivz (Bld) [#/Vol]2.2 10*3/uLNormal1.0-3.5PEast Liverpool City HospitalComment on above:Performed By: #### CBCA, BMP, LIVR #### [facility] ([id number]) [address], [address] [place], [place] [address]Ybwfzbvfres/100 WBC (Bld)33.9 %[facility] Comment on above:Performed By: #### CBCA, BMP, LIVR #### [facility] ([id number]) [address], [address] [place], [place] [address]JJG (RBC) [Entitic mass]32.8 irGkhbrh27-49JdfOtqnofThe Hospital At Westlake Medical CenterComment on above:Performed By: #### CBCA, BMP, LIVR #### [facility] ([id number]) [address], [address] [place], [place] [address]NYQM (RBC) [Mass/Vol]34.2 g/gCKefwap70-19FmtAchtwsThe Hospital At Westlake Medical CenterComment on above:Performed By: #### CBCA, BMP, LIVR #### [facility] ([id number]) [address], [address] [place], [place] [address]LFT (RBC) [Entitic vol]96 gVXhfelx26-016GnnNfkmsfHarrison Community HospitalComment on above:Performed By: #### CBCA, BMP, LIVR #### [facility] ([id number]) [address], [address] [place], [place] [address]Qnsnwhvfv (Bld) [#/Vol]0.5 10*3/uLNormal0-0.9[facility] Community HospitalComment on above:Performed By: #### CBCA, BMP, LIVR #### [facility] ([id number]) [address], [address] [place], [place] [address]Qiyowektc/100 WBC (Bld)7.7 %[facility] Comment on above:Performed By: #### CBCA, BMP, LIVR #### [facility] ([id number]) [address], [address] [place], [place] [address]Dzyldxgedtl/100 WBC (Bld)53.7 %NormalHarrison Community Hospital Comment on above:Performed By: #### CBCA, BMP, LIVR #### [facility] ([id number]) [address], [address] [place], [place] [address]Qnuhwalk mean volume (Bld) [Entitic vol]7.5 fLNormal7-12 [facility] HospitalComment on above:Performed By: #### CBCA, BMP, LIVR #### [facility] ([id number]) [address], [address] [place], [place] [address]Zbjedpyir (Bld) [#/Vol]239 10*3/bXPotvju627-555NuyCgxvsmHarrison Community HospitalComment on above:Performed By: #### CBCA, BMP, LIVR #### [facility] ([id number]) [address], [address] [address]VAD COUNT4.18 X10E12/LNormal4.10-5.70[facility] Comment on above:Performed By: #### CBCA, BMP, LIVR #### [facility] ([id number]) [address], [address] [address]RBZ (Bld) [#/Vol]6.6 10*3/uLNormal4.0-11.0[facility] Community HospitalComment on above:Performed By: #### CBCA, BMP, LIVR #### [facility] ([id number]) [address], [address] [place] [address]JL auto differentialon 43-40-2752Mwqjayvil (Bld) [#/Vol]0.1 10*3/uLProMedimt Health SystemBasophils/100 WBC (Bld)1 %[facility]icPro[facility] Eosinophils (Bld) [#/Vol]0.2 10*3/uLProMercy Hospital SystemEosinophils/100 WBC (Bld)3.7 %[facility]letown HospitalErythrocyte distribution width (RBC) [Ratio] 14.8 %11.5 - 15.0 %[facility] HospitalHematocrit (Bld) [Volume fraction]40.1 %39 - 49 %[facility] HospitalHemoglobin (Bld) [Mass/Vol]13.7 g/dL13.0 - 17.0 g/dLMiddletown HospitalLymphocytes (Bld) [#/Vol]2.2 10*3/[facility] HospitalLymphocytes/100 WBC (Bld)33.9 %[facility] HospitalMCH (RBC) [Entitic mass]32.8 pg27 - 34 [facility] Brent[facility] HospitalMCHC (RBC) [Mass/Vol]34.2 g/dL32 - 36 g/dLMiddletown HospitalMCV (RBC) [Entitic vol]96 fL80 - 100 [facility] HospitalMonocytes (Bld) [#/Vol]0.5 10*3/[facility] Monocytes/100 WBC (Bld)7.7 %[facility] HospitalNeutrophils (Bld) [#/Vol]3.6 10*3/[facility] HospitalNeutrophils/100 WBC (Bld)53.7 %[facility] HospitalPlatelet mean volume (Bld) [Entitic vol]7.5 fL7 - 12 [facility] Memorial HospitalPlatelets (Bld) [#/Vol]239 10*3/[facility] HospitalRBC (Bld) [#/Vol] 4.18 10*6/[facility] HospitalWBC corrected for nucl RBC Auto (Bld) [#/Vol] 6.6Washington Health SystemCOMPREHENSIVE METABOLIC PANELon 38-82-7405Okikqcj [Mass/Vol]3.0 g/dLLow3.2-5.3PEast Liverpool City HospitalComment on above:Performed By: #### CBCA, BMP, LIVR #### [facility] ([id number]) [address], [address] [place], [place] [address]XDX [Catalytic activity/Vol]111 U/ZNqngur78-233EpqHprdci [facility] HospitalComment on above:Performed By: #### IRASEMA BMP, LIVR #### [facility] ([id number]) [address], [address] [place] [address]DRK [Catalytic activity/Vol]20 U/LNormal0-40ProOhio Valley Surgical Hospital HospitalComment on above:Performed By: #### IRASEMA BMP, LIVR #### [facility] ([id number]) [address], [address] [place], [place] [address]Qoikx gap [Moles/Vol]8 mmol/LNormal5-15ProThe Hospital At Westlake Medical CenterComment on above:Performed By: #### IRASEMA BMP, LIVR #### [facility] ([id number]) [address], [address] [place], [place] [address]XVA [Catalytic activity/Vol]21 U/LNormal0-41ProThe Hospital At Westlake Medical CenterComment on above:Performed By: #### IRASEMA BMP, LIVR #### [facility] ([id number]) [address], [address] [place], [place] [address]Mpmvukewm [Mass/Vol]1.8 mg/dLHigh0.3-1.2PTelluride Regional Medical Center HospitalComment on above:Performed By: #### IRASEMA BMP, LIVR #### [facility] ([id number]) [address], [address] [place], [place] [address]Sdkyezy [Mass/Vol]8.8 mg/dLNormal8.5-10.5PTelluride Regional Medical Center HospitalComment on above:Performed By: #### IRASEMA BMP, LIVR #### [facility] ([id number]) [address], [address] [place], [place] [address]Nnwoguoo [Moles/Vol]105 mmol/EUglura25-645YtpItegyd [facility] HospitalComment on above:Performed By: #### IRASEMA, BMP, LIVR #### [facility] ([id number]) [address], [address] [place], [place] [address]VA7 [Moles/Vol]25 mmol/QPkfsne20-67EgsWesjeqEast Liverpool City Hospital Comment on above:Performed By: #### YUMIKO VILLALPANDO LIVR #### [facility] ([id number]) [address], [address] [place], [place] [address]Blvwzanugq [Mass/Vol]1.40 mg/dLHigh0.70-1.20[facility] HospitalComment on above:Result Comment: METHOD TRACEABLE TO IDMS STANDARD Performed By: #### YUMIKO VILLALPANDO LIVGuille #### [facility] ([id number]) [address], [address] [place], [place] [address]KUT/1.73 sq M.predicted among non-blacks MDRD (S/P/Bld) [Vol rate/Area]57 mL/min/{1.73_m2}Low>59ProThe Hospital At Westlake Medical CenterComment on above: Result Comment: Reported eGFR is based on the CKD-EPI 2020 equation that does not use a race coefficient.Performed By: #### YUMIKO VILLALPANDO LIVR #### [facility] ([id number]) [address], [address] [place], [place] [address]Igtfeiv [Mass/Vol]183 mg/uIUqhs61-30VgeDwbqjvHarrison Community Hospital Comment on above:Performed By: #### YUMIKO VILLALPANDO LIVR #### [facility] ([id number]) [address] [address] [place], [place] [address]Liqqmosrk [Moles/Vol]3.8 mmol/LNormal3.5-5.0H[facility] HospitalComment on above:Performed By: #### YUMIKO VILLALPANDO, LIVR #### [facility] ([id number]) [address], [address] [place], [place] [address]Kqitmnj [Mass/Vol]7.0 g/dLNormal6.0-8.0ProThe Hospital At Westlake Medical CenterComment on above:Performed By: #### CBCYUMIKO Baltazar, LIVR #### [facility] ([id number]) [address], [address] [place], [place] [address]Igbvpc [Moles/Vol]138 mmol/VBrejxa549-343ZsgAjjtrd [facility] HospitalComment on above:Performed By: #### CBCDelaney BMP, LIVR #### [facility] ([id number]) [address], [address] [place], [place] [address]Ipwp nitrogen [Mass/Vol]14 mg/dLNormal5-27ProThe Hospital At Westlake Medical CenterComment on above:Performed By: #### YUMIKO VILLALPANDO, LIVR #### [facility] ([id number]) [address], [address] [place], [place] [address]Qecniumrlgbej metabolic panelon 14-93-1805Jgissez [Mass/Vol]3 g/dLLow3.2 - 5.3 g/dLProMedica Health SystemALP [Catalytic activity/Vol]111 U/L 39 - 130 U/LProMedica Health SystemALT No additional P-5'-P [Catalytic activity/Vol]20 U/L0 - 40 U/LProMedica Health SystemAnion gap [Moles/Vol]8 mmol/L5 - 15 mmol/LProMedica Health SystemAST [Catalytic activity/Vol]21 U/L0 - 41 U/LProMedica Health SystemBilirubin [Mass/Vol]1.8 mg/dLHigh0.3 - 1.2 mg/dL ProMedica Health SystemCalcium [Mass/Vol]8.8 mg/dL8.5 - 10.5 mg/dLProMedica Health SystemChloride [Moles/Vol]105 mmol/L98 - 109 mmol/LProMedica Health SystemCO2 [Moles/Vol]25 mmol/L22 - 32 mmol/LProMedica Health SystemCreatinine [Mass/Vol]1.4 mg/dLHigh0.70 - 1.20 mg/dLMiddletown HospitalComment on above: METHOD TRACEABLE TO IDMS STANDARDeGFR (CKD-EPI)non-race pnjgtykmn53Byw- PINF [facility] HospitalComment on above: Reported eGFR is based on the CKD-EPI 2020 equation that does not use a race coefficient. Glucose [Mass/Vol]183 mg/rDPpxn08 - 99 mg/dLMiddletown Hospital Interpretation and review of laboratory resultsAbHudson Valley Hospital Potassium [Moles/Vol]3.8 mmol/L3.5 - 5.0 mmol/LPrKettering Health Behavioral Medical Center SystemProtein [Mass/Vol]7 g/dL6.0 - 8.0 g/dLDuke University Hospitalodium [Moles/Vol]138 mmol/L134 - 146 mmol/[facility] SystemUrea nitrogen [Mass/Vol]14 mg/dL5 - 27 mg/dLMiddletown HospitalGlucose Glucometer (BldC) [Mass/Vol]on 03-77-6057Dfkcxur [Mass/Vol]116 mg/rNDuec13 - 99 mg/dLMiddletown Hospital Interpretation and review of laboratory resultsAbAspirus Stanley HospitalGlucose [Mass/Vol]116 mg/fHAhnw07-00JkoBudtllHarrison Community HospitalGlucose [Mass/Vol]204 mg/iTIath76 - 99 mg/dLMiddletown Hospital Interpretation and review of laboratory resultsAbAspirus Stanley HospitalGlucose [Mass/Vol]204 mg/hLPnmq13-84XtnFhczuxHarrison Community HospitalGlucose [Mass/Vol]256 mg/iQAugw27 - 99 mg/dLMiddletown Hospital Interpretation and review of laboratory resultsAbAspirus Stanley HospitalGlucose [Mass/Vol]256 mg/mHToun54-26GzlLzrgzuHarrison Community HospitalMAGNESIUMon 48-17-0204Bmfdzrlkg [Mass/Vol]2.4 mg/dLNormal1.8-2.6 [facility] HospitalComment on above:Performed By: #### CBCA, BMP, LIVR #### [facility] ([id number]) [address] [facility], [address] [place], [place] [address]Xsvwzunmapk 45-24-6766Nwzicplas [Mass/Vol]2.4 mg/dL1.8 - 2.6 mg/dLMiddletown HospitalNo Panel Informationon 50-03-8528ScfBzfspaKettering Health PrebleCBC AND AUTO DIFFon 13-57-9484FVNWNIZP BASOPHIL0.0 X10E9/LNormal0.0-0.2 [facility] HospitalComment on above:Performed By: #### CBCA, BMP, LIVR #### [facility] ([id number]) [address], [address] [place], [place] [address]APDGUJGJ NEUTROPHIL4.0 X10E9/LNormal1.5-6.6[facility] HospitalComment on above:Performed By: #### CBCA, BMP, LIVR #### [facility] ([id number]) [address], [address] [place], [place] [address]Gozofwdvg/100 WBC (Bld)0.6 %NormalHarrison Community Hospital Comment on above:Performed By: #### CBCA, BMP, LIVR #### [facility] ([id number]) [address], [address] [place], [place] [address]Hltcnjdofvt (Bld) [#/Vol]0.2 10*3/uLNormal0.0-0.4[facility] HospitalComment on above:Performed By: #### CBCA, BMP, LIVR #### [facility] ([id number]) [address], [address] [place], [place] [address]Iywsatplhju/100 WBC (Bld)3.0 %NormalHarrison Community Hospital Comment on above:Performed By: #### CBCA, BMP, LIVR #### [facility] ([id number]) [address], [address] [place], [place] [address]Iormixlhlci distribution width (RBC) [Ratio]15.0 %Normal 11.5-15.0[facility] HospitalComment on above:Performed By: #### CBCA, BMP, LIVR #### [facility] ([id number]) [address], [address] [place], [place] [address]Ggoqbgbjns (Bld) [Volume fraction]39.5 %Dnglne72-73KodGtregkThe Hospital At Westlake Medical CenterComment on above:Performed By: #### CBCA, BMP, LIVR #### [facility] ([id number]) [address], [address] [place], [place] [address]Otwhhkfspz (Bld) [Mass/Vol]13.3 g/kQRrznkz30.0-17.0ProThe Hospital At Westlake Medical CenterComment on above:Performed By: #### CBCA, BMP, LIVR #### [facility] ([id number]) [address], [address] [place], [place] [address]Qrrceagfeia (Bld) [#/Vol]1.7 10*3/uLNormal1.0-3.5PEast Liverpool City HospitalComment on above:Performed By: #### CBCA, BMP, LIVR #### [facility] ([id number]) [address], [address] [place], [place] [address]Abwamsevmir/100 WBC (Bld)26.4 %NormalProThe Hospital At Westlake Medical Center Comment on above:Performed By: #### CBCA, BMP, LIVR #### [facility] ([id number]) [address], [address] [place], [place] [address]DWB (RBC) [Entitic mass]32.2 awCwwjlg33-52AfgBqqhpiThe Hospital At Westlake Medical CenterComment on above:Performed By: #### CBCA, BMP, LIVR #### [facility] ([id number]) [address], [address] [place], [place] [address]CWZR (RBC) [Mass/Vol]33.7 g/zPViukmf90-84PbsIkwecmThe Hospital At Westlake Medical CenterComment on above:Performed By: #### CBCA, BMP, LIVR #### [facility] ([id number]) [address], [address] [place] [address]UUL (RBC) [Entitic vol]96 cLYvxocp30-232FqeMvotiaHarrison Community HospitalComment on above:Performed By: #### CBCA, BMP, LIVR #### [facility] ([id number]) [address], [address] [place], [place] [address]Gfdtneaya (Bld) [#/Vol]0.4 10*3/uLNormal0-0.9H[facility] Community HospitalComment on above:Performed By: #### CBCA, BMP, LIVR #### [facility] ([id number]) [address], [address] [place], [place] [address]Delxaqedk/100 WBC (Bld)6.8 %NormalHarrison Community Hospital Comment on above:Performed By: #### CBCA, BMP, LIVR #### [facility] ([id number]) [address], [address] [place] [address]Dsxgcjuihym/100 WBC (Bld)63.2 %[facility] Comment on above:Performed By: #### CBCA, BMP, LIVR #### [facility] ([id number]) [address], [address] [place] [address]Bifboeyx mean volume (Bld) [Entitic vol]8.1 fLNormal7-12 [facility] Community HospitalComment on above:Performed By: #### CBCA, BMP, LIVR #### [facility] ([id number]) [address], [address] [place] [address]Cbwdexxmn (Bld) [#/Vol]246 10*3/qUTpxqaz872-138YdpZhunxo [facility]remont HospitalComment on above:Performed By: #### CBCA, BMP, LIVR #### [facility] ([id number]) [address], [address] [place], [place] [address]HYB COUNT4.13 X10E12/LNormal4.10-5.70[facility] Comment on above:Performed By: #### CBCDelaney, YUMIKO, LIVR #### [facility] ([id number]) [address], [address] [place], [place] [address]NNE (Bld) [#/Vol]6.4 10*3/uLNormal4.0-11.0H[facility] Community HospitalComment on above:Performed By: #### CBCA, BMP, LIVR #### [facility] ([id number]) [address], [address] [place], [place] [address]DRG auto differentialon 60-20-4121Mvsenyodl (Bld) [#/Vol]0 10*3/uLMiddletown HospitalBasophils/100 WBC (Bld)0.6 %[facility]letown HospitalEosinophils (Bld) [#/Vol]0.2 10*3/uLMiddletown HospitalEosinophils/100 WBC (Bld)3 %[facility]letown HospitalErythrocyte distribution width (RBC) [Ratio] 15 %11.5 - 15.0 %[facility] HospitalHematocrit (Bld) [Volume fraction]39.5 % 39 - 49 %[facility] HospitalHemoglobin (Bld) [Mass/Vol]13.3 g/dL13.0 - 17.0 g/dLMiddletown HospitalLymphocytes (Bld) [#/Vol]1.7 10*3/uLMiddletown HospitalLymphocytes/100 WBC (Bld)26.4 %[facility] HospitalMCH (RBC) [Entitic mass]32.2 pg27 - 34 [facility] HospitalMCHC (RBC) [Mass/Vol]33.7 g/dL32 - 36 g/dLMiddletown HospitalMCV (RBC) [Entitic vol]96 fL80 - 100 [facility] HospitalMonocytes (Bld) [#/Vol]0.4 10*3/uLMiddletown Hospital Monocytes/100 WBC (Bld)6.8 %[facility] SystemNeutrophils (Bld) [#/Vol]4 10*3/[facility] HospitalNeutrophils/100 WBC (Bld)63.2 %[facility] SystemPlatelet mean volume (Bld) [Entitic vol]8.1 fL7 - 12 [facility] SystemPlatelets (Bld) [#/Vol]246 10*3/[facility] SystemRBC (Bld) [#/Vol] 4.13 10*6/[facility] HospitalWBC corrected for nucl RBC Auto (Bld) [#/Vol] 6.4Washington Health SystemCOMPREHENSIVE METABOLIC PANELon 88-29-5320Deqcfxg [Mass/Vol]3.1 g/dLLow3.2-5.3PEast [place] City HospitalComment on above:Performed By: #### CBCA, BMP, LIVR #### [facility] ([id number]) [address], [address] [place], [place] [address]VCE [Catalytic activity/Vol]110 U/ZSzmyhs52-204GstJyrtqkHarrison Community HospitalComment on above:Performed By: #### CBCA, BMP, LIVR #### [facility] ([id number]) [address], [address] [place], [place] [address]NRD [Catalytic activity/Vol]20 U/LNormal0-40H[facility] Community HospitalComment on above:Performed By: #### CBCA, BMP, LIVR #### [facility] ([id number]) [address], [address] [place], [place] [address]Nklxl gap [Moles/Vol]11 mmol/LNormal5-15[facility] HospitalComment on above:Performed By: #### CBCA, BMP, LIVR #### [facility] ([id number]) [address], [address] [place], [place] [address]MTZ [Catalytic activity/Vol]20 U/LNormal0-41[facility] HospitalComment on above:Performed By: #### YUMIKO VILLALPANDO, LIVR #### [facility] ([id number]) [address], [address] [place], [place] [address]Qerhqwfak [Mass/Vol]1.3 mg/dLHigh0.3-1.2PEast [place] City HospitalComment on above:Performed By: #### YUMIKO VILLALPANDO, LIVR #### [facility] ([id number]) [address], [address] [place], [place] [address]Vtozczz [Mass/Vol]8.8 mg/dLNormal8.5-10.5PEast [place] City HospitalComment on above:Performed By: #### YUMIKO VILLALPANDO, LIVR #### [facility] ([id number]) [address], [address] [place], [place] [address]Zuqzdapv [Moles/Vol]106 mmol/LLyqqum72-289FmpHeprfjThe Hospital At Westlake Medical CenterComment on above:Performed By: #### YUMIKO VILLALPANDO, LIVR #### [facility] ([id number]) [address], [address] [place], [place] [address]XZ5 [Moles/Vol]23 mmol/VJlztkw16-53TlkAagidmEast [facility] Hospital Comment on above:Performed By: #### YUMIKO VILLALPANDO, LIVR #### [facility] ([id number]) [address], [address] [place], [place] [address]Fisvcnacjk [Mass/Vol]1.11 mg/dLNormal0.70-1.20ProThe Hospital At Westlake Medical CenterComment on above:Result Comment: METHOD TRACEABLE TO IDMS STANDARD Performed By: #### YUMIKO VILLALPANDO, LIVR #### [facility] ([id number]) [address], [address] [place] [address]VCR/1.73 sq M.predicted among non-blacks MDRD (S/P/Bld) [Vol rate/Area]76 mL/min/{1.73_m2}Normal>59ProThe Hospital At Westlake Medical CenterComment on above:Result Comment: Reported eGFR is based on the CKD-EPI 2020 equation that does not use a race coefficient.Performed By: #### YUMIKO VILLALPANDO, LIVR #### [facility] ([id number]) [address], [address] [place], [place] [address]Cyglmno [Mass/Vol]230 mg/vDVuzf80-88UgpCehesiThe Hospital At Westlake Medical Center Comment on above:Performed By: #### YUMIKO VILLALPANDO, LIVR #### [facility] ([id number]) [address], [facility] [address] [place], [place] [address]Cshgcssvm [Moles/Vol]3.5 mmol/LNormal3.5-5.0ProThe Hospital At Westlake Medical CenterComment on above:Performed By: #### YUMIKO VILLALPANDO, LIVR #### [facility] ([id number]) [address], [address] [place], [place] [address]Lnktoeq [Mass/Vol]7.3 g/dLNormal6.0-8.0ProThe Hospital At Westlake Medical CenterComment on above:Performed By: #### YUMIKO VILLALPANDO, LIVR #### [facility] ([id number]) [address], [address] [place], [place] [address]Dvmhsm [Moles/Vol]140 mmol/DOzldst792-930FwrAsjovw [facility]ont HospitalComment on above:Performed By: #### YUMIKO VILLALPANDO, LIVR #### [facility] ([id number]) [address], [address] [place], [place] [address]Vlde nitrogen [Mass/Vol]17 mg/dLNormal5-27ProThe Hospital At Westlake Medical CenterComment on above:Performed By: #### YUMIKO VILLALPANDO, LIVR #### [facility] ([id number]) [address], [address] [place], [place] [address]Rpphmdhlldufh metabolic panelon 93-98-8431Nvivcza [Mass/Vol]3.1 g/dLLow3.2 - 5.3 g/dLProMercy Hospital SystemALP [Catalytic activity/Vol]110 U/L 39 - 130 U/[facility] SystemALT No additional P-5'-P [Catalytic activity/Vol]20 U/L0 - 40 U/[facility] Health SystemAnion gap [Moles/Vol]11 mmol/L5 - 15 mmol/LPrPioneers Medical Center Health SystemAST [Catalytic activity/Vol]20 U/L0 - 41 U/[facility] SystemBilirubin [Mass/Vol]1.3 mg/dLHigh0.3 - 1.2 mg/dL [facility] HospitalCalcium [Mass/Vol]8.8 mg/dL8.5 - 10.5 mg/dLMiddletown HospitalChloride [Moles/Vol]106 mmol/L98 - 109 mmol/[facility] SystemCO2 [Moles/Vol]23 mmol/L22 - 32 mmol/[facility] SystemCreatinine [Mass/Vol]1.11 mg/dL0.70 - 1.20 mg/dLMiddletown HospitalComment on above: METHOD TRACEABLE TO IDWI STANDARDeGFR (CKD-EPI)non-race rmsvythzs54- PINF [facility] HospitalComment on above: Reported eGFR is based on the CKD-EPI 2020 equation that does not use a race coefficient. Glucose [Mass/Vol]230 mg/qOMili25 - 99 mg/dLMiddletown Hospital Interpretation and review of laboratory resultsAbnormalMiddletown Hospital Potassium [Moles/Vol]3.5 mmol/L3.5 - 5.0 mmol/[facility] SystemProtein [Mass/Vol]7.3 g/dL6.0 - 8.0 g/dLDuke University Hospitalodium [Moles/Vol]140 mmol/L134 - 146 mmol/[facility] SystemUrea nitrogen [Mass/Vol]17 mg/dL5 - 27 mg/dLMiddletown HospitalGlucose Glucometer (BldC) [Mass/Vol]on 35-72-3008Kskosep [Mass/Vol]168 mg/oTQcqw87-05YnjZmjrheHarrison Community HospitalGlucose [Mass/Vol]201 mg/lPYtex14 - 99 mg/dLProMedica Health SystemInterpretation and review of laboratory resultsAbnormOhioHealth Marion General HospitalProPremier Health Atrium Medical CenterGlucose [Mass/Vol]201 mg/sQZfdl83-92MieGbbfdfHarrison Community HospitalGlucose [Mass/Vol]189 mg/dPNetk41 - 99 mg/dLMiddletown HospitalInterpretation and review of laboratory resultsAbnormPaoli HospitalGlucose [Mass/Vol]189 mg/eEMann94-66LiyZuxyhmHarrison Community HospitalMAGNESIUMon 96-84-0661Cdmxudodd [Mass/Vol]1.9 mg/dLNormal1.8-2.6[facility] Comment on above:Performed By: #### CBCA, BMP, LIVR #### [facility] ([id number]) [address] [facility] [facility] [place], [place] [address]Ovtcxeesapk 13-30-7448Roludzgvb [Mass/Vol]1.9 mg/dL1.8 - 2.6 mg/dLMiddletown HospitalNo Panel Informationon 99-45-7573HkyReqmlg Health SystemXR CHEST 1 VWon 16-19-2601AX CHEST 1 VWXR CHEST 1 VW Chest radiograph dated: 11/21/2023. Reason for study: surgical clearance. Comparison studies: Chest x-ray from 12/05/2021. Technique: Portable upright chest 1 view AP. Findings: Mild cardiomegaly. No willian pulmonary edema. No pneumothorax, significant pleural effusions or focal consolidation. No acute osseous abnormality. IMPRESSION: No acute cardiopulmonary process identified Finalized by German Cardenas MD on 11/21/2023 4:10 PMNormalHarrison Community HospitalXR Chest Single viewon 37-33-8358Vetme radiograph dated: 11/21/2023. Reason for study: surgical clearance. Comparison studies: Chest x-ray from 12/05/2021. Technique: Portable upright chest 1 view AP. Findings: Mild cardiomegaly. No willian pulmonary edema. No pneumothorax, significant pleural effusions or focal consolidation. No acute osseous abnormality. IMPRESSION: No acute cardiopulmonary process identified Finalized by German Cardenas MD on 11/21/2023 4:10 PMSGerman Marie MD - 11/21/2023 Chest radiograph dated: 11/21/2023. Reason for study: surgical clearance. Comparison studies: Chest x-ray from 12/05/2021. Technique: Portable upright chest 1 view AP. Findings: Mild cardiomegaly. No willian pulmonary edema. No pneumothorax, significant pleural effusions or focal consolidation. No acute osseous abnormality. IMPRESSION: No acute cardiopulmonary process identified Finalized by German Cardenas MD on 11/21/2023 4:[address] [facility] HospitalRadiology Study observation (narrative)[facility] HospitalXR Chest Single viewOrdered By: German Cardenas on 08-79-3556IzyCbxdrtKettering Health Preble Work Phone: Acetone, (BetaHydroxybutyrate, Ketone) quantitative, serumon 41-41-0387Zufn hydroxybutyrate [Moles/Vol]0.17 mmol/L0.02 - 0.27 mmol/L [facility] HospitalBeta hydroxybutyrate [Moles/Vol]on 20-08-9686PfpFbfbstKettering Health PrebleBetaHydroxybutyrate0.17 mmol/LNormal0.02-0.27H[facility] HospitalComment on above:Performed By: #### CBCA, [facility], 3040-3, 6873-4 #### [facility] ([id number]) [address] [place] [address], [address] [place], [place] [address]Xznzb gas, venouson 19-36-2792Rsvpwirx patency Wrist artery --pre arterial punctureMiddletown HospitalBase excess Calc (Bld) [Moles/Vol] 3 mmol/LHLifePoint HospitalsCO2 (BldV) [Partial pressure]49.3 mm[Hg] [facility] HospitalHCO3 (Bld) [Moles/Vol]29.2 mmol/LHLifePoint HospitalsInterpretation and review of laboratory resultsAbnormalProPremier Health Atrium Medical CenterOxygen (BldV) [Partial pressure]25 mm[Hg]LowProPremier Health Atrium Medical CenterOxygen therapy source and amount [CARE]RoomAirMiddletown HospitalpH (BldV)7.381 [pH]7.320 - 7.420Duke University HospitalaO2% Calculated from oxygen partial pressure (BldV) [Mass fraction]42 %Low80.0 - PINF %[facility] Specimen site NarrativeN/AProMercy Hospital SystemSpecimen type Nom (Spec)VENOUS [facility] HospitalProPremier Health Atrium Medical CenterCBC AND AUTO DIFFon 11-20-2023 ABSOLUTE BASOPHIL0.0 X10E9/LNormal0.0-0.2PEast Liverpool City HospitalComment on above:Performed By: #### MAYLIN VILLALPANDO, 3040-3, 6873-4 #### [facility] ([id number]) [address] [place] [address]XMBINKOX NEUTROPHIL4.3 X10E9/LNormal1.5-6.6H[facility] HospitalComment on above:Performed By: #### MAYLIN VILLALPANDO, 3040-3, 6873-4 #### [facility] ([id number]) [address] [place] [address]Azevctxhg/100 WBC (Bld)0.6 %[facility] Comment on above:Performed By: #### MAYLIN VILLALPANDO, 3040-3, 6873-4 #### [facility] ([id number]) [address] [place] [address]Zydyuxrnvnl (Bld) [#/Vol]0.1 10*3/uLNormal0.0-0.4[facility] HospitalComment on above:Performed By: #### MAYLIN VILLALPANDO, 3040-3, 6873-4 #### [facility] ([id number]) [address] [place] [address]Fxhafgvrapx/100 WBC (Bld)1.9 %[facility] Comment on above:Performed By: #### MAYLIN VILLALPANDO, 3040-3, 6873-4 #### [facility] ([id number]) [address] [place] [address]Fkzimqgvfzr distribution width (RBC) [Ratio]14.9 %Normal 11.5-15.0H[facility] Community HospitalComment on above:Performed By: #### MAYLIN VILLALPANDO, 3040-3, 6873-4 #### [facility] ([id number]) [address] [place] [address]Kyycplfyeq (Bld) [Volume fraction]42.0 %Tsxupe80-54HfnMuyvvrThe Hospital At Westlake Medical CenterComment on above:Performed By: #### MAYLIN VILLALPANDO, 3, 73-4 #### [facility] ([id number]) [address] [place] [address]Sshwbhjagi (Bld) [Mass/Vol]14.3 g/tFProbmi19.0-17.0ProThe Hospital At Westlake Medical CenterComment on above:Performed By: #### MAYLIN VILLALPANDO, 3, 73-4 #### [facility] ([id number]) [address] [place] [address]Nqxpbudgkbq (Bld) [#/Vol]2.1 10*3/uLNormal1.0-3.5PEast Liverpool City HospitalComment on above:Performed By: #### MAYLIN VILLALPNADO, 3, 6873-4 #### [facility] ([id number]) [address] [place] [address]Amhabddvpud/100 WBC (Bld)29.3 %NormalProThe Hospital At [facility] Center Comment on above:Performed By: #### IRASEMA CMP, 03, 6873-4 #### [facility] ([id number]) [address] [place] [address]NOW (RBC) [Entitic mass]32.8 zpOwmckd08-84SstZkbpsqThe Hospital At Westlake Medical CenterComment on above:Performed By: #### MAYLIN VILLALPANDO, 3039-3, 73-4 #### [facility] ([id number]) [address] [place] [address]NGXF (RBC) [Mass/Vol]34.2 g/qPTiysdm24-30UgdTulvcgThe Hospital At Westlake Medical CenterComment on above:Performed By: #### MAYLIN VILLALPANDO, 3, 6872-4 #### [facility] ([id number]) [address] [place] [address]IIS (RBC) [Entitic vol]96 yIFokagl01-147TapXgklrrHarrison Community HospitalComment on above:Performed By: #### MAYLIN VILLALPANDO, 3, 73-4 #### [facility] ([id number]) [address] [place] [address]Tuspobdlx (Bld) [#/Vol]0.6 10*3/uLNormal0-0.9H[facility] Community HospitalComment on above:Performed By: #### MAYLIN VILLALPANDO, 3, 6872-4 #### [facility] ([id number]) [address] [place] [address]88[address]Atpliqqxs/100 WBC (Bld)7.9 %[facility] Comment on above:Performed By: #### MAYLIN VILLALPANDO, 3, 73-4 #### [facility] ([id number]) [address] [place] [address]Cgoahzucpfk/100 WBC (Bld)60.3 %[facility] Comment on above:Performed By: #### CBCDelaney, CMP, 03, 73-4 #### [facility] ([id number]) [address] [place] [address]Tywzzisk mean volume (Bld) [Entitic vol]7.8 fLNormal7-12 [facility] HospitalComment on above:Performed By: #### MAYLIN VILLALPANDO, 3040-3, 6873-4 #### [facility] ([id number]) [address] [place] [address]Whkmgvzni (Bld) [#/Vol]274 10*3/vFDrdfqh894-598SwdEznrkj [facility] HospitalComment on above:Performed By: #### MAYLIN VILLALPANDO, 3040-3, 6873-4 #### [facility] ([id number]) [address] [place] [address]RCL COUNT4.37 X10E12/LNormal4.10-5.70[facility] Comment on above:Performed By: #### MAYLIN VILLALPANDO, 3040-3, 6873-4 #### [facility] ([id number]) [address] [place] [address]WHE (Bld) [#/Vol]7.1 10*3/uLNormal4.0-11.0H[facility] HospitalComment on above:Performed By: #### MAYLIN VILLALPANDO, 3040-3, 6873-4 #### [facility] ([id number]) [address] [place] [address]HAN auto differentialon 52-08-0025Fpmvexdwp (Bld) [#/Vol]0 10*3/uLProMedica Health SystemBasophils/100 WBC (Bld)0.6 %[facility] Hospitaledic Health SystemEosinophils (Bld) [#/Vol]0.1 10*3/uLProMedica Health SystemEosinophils/100 WBC (Bld)1.9 %ProMedica Health SystemErythrocyte distribution width (RBC) [Ratio]14.9 %11.5 - 15.0 %[facility]Medica Health SystemHematocrit (Bld) [Volume fraction]42 %39 - 49 %[facility]Medica Health SystemHemoglobin (Bld) [Mass/Vol]14.3 g/dL13.0 - 17.0 g/dLMiddletown HospitalLymphocytes (Bld) [#/Vol]2.1 10*3/uL [facility] HospitalLymphocytes/100 WBC (Bld)29.3 %[facility] HealthH (RBC) [Entitic mass]32.8 pg27 - 34 pgPKettering Health PrebleMCHC (RBC) [Mass/Vol]34.2 g/dL32 - 36 g/dLMiddletown HospitalMCV (RBC) [Entitic vol]96 fL80 - 100 [facility] HospitalMonocytes (Bld) [#/Vol]0.6 10*3/uLMiddletown HospitalMonocytes/100 WBC (Bld)7.9 %M[facility]own HospitalNeutrophils (Bld) [#/Vol]4.3 10*3/uLMiddletown HospitalNeutrophils/100 WBC (Bld)60.3 % [facility] HospitalPlatelet mean volume (Bld) [Entitic vol]7.8 fL7 - 12 fL [facility] HospitalPlatelets (Bld) [#/Vol]274 10*3/uLMiddletown Hospital RBC (Bld) [#/Vol]4.37 10*6/[facility] HospitalWBC corrected for nucl RBC Auto (Bld) [#/Vol]7.1PPenn Presbyterian Medical CenterCOMPREHENSIVE METABOLIC PANELon 54-94-3996Toizxlk [Mass/Vol]3.6 g/dLNormal3.2-5.3PEast Liverpool City HospitalComment on above:Performed By: #### CBCA, CMP, 3040-3, 6873-4 #### [facility] ([id number]) [address] [place] [address]WAK [Catalytic activity/Vol]131 U/QAufe39-073PcgUijoavHarrison Community HospitalComment on above:Performed By: #### CBCA, CMP, 3040-3, 6873-4 #### [facility] ([id number]) [address] [place] [address], [place] [address]KKS [Catalytic activity/Vol]22 U/LNormal0-40ProThe Hospital At Westlake Medical CenterComment on above:Performed By: #### MAYLIN VILLALPANDO, 3040-3, 73-4 #### [facility] ([id number]) [address] [place] [address], [place] [address]Mliao gap [Moles/Vol]14 mmol/LNormal5-15ProThe Hospital At Westlake Medical CenterComment on above:Performed By: #### MAYLIN VILLALPANDO, 3040-3, 73-4 #### [facility] ([id number]) [address] [place] [address], [place] [address]IYO [Catalytic activity/Vol]29 U/LNormal0-41ProThe Hospital At Westlake Medical CenterComment on above:Performed By: #### MAYLIN VILLALPANDO, 0-3, 73-4 #### [facility] ([id number]) [address] [place] [address], [place] [address]Skdfyssww [Mass/Vol]0.8 mg/dLNormal0.3-1.2ProMedMenlo Park Surgical HospitalComment on above:Performed By: #### MAYLIN VILLALPANDO, 3040-3, 73-4 #### [facility] ([id number]) [address] [place] [address], [place] [address]Qiozcff [Mass/Vol]9.1 mg/dLNormal8.5-10.5PEast Liverpool City HospitalComment on above:Performed By: #### MAYLIN VILLALPANDO, 3040-3, 73-4 #### [facility] ([id number]) [address] [place] [address], [place] [address]Xsxgduji [Moles/Vol]98 mmol/DWzhkns12-539QcwNrizdnThe Hospital At Westlake Medical CenterComment on above:Performed By: #### MAYLIN VILLALPANDO, 3040-3, 73-4 #### [facility] ([id number]) [address] [place] [id number] [Moles/Vol]22 mmol/CPveqch44-84BmfDcxmjmEast [place] City Hospital Comment on above:Performed By: #### MAYLIN VILLALPANDO, 304-3, 6873-4 #### [facility] ([id number]) [address] [place] [address]Vkzilpcosh [Mass/Vol]1.24 mg/dLHigh0.70-1.20ProThe Hospital At Westlake Medical CenterComment on above:Result Comment: METHOD TRACEABLE TO IDMS STANDARD Performed By: #### MAYLIN VILLALPANDO, 3, 73-4 #### [facility] ([id number]) [address] [place] [address]MPU/1.73 sq M.predicted among non-blacks MDRD (S/P/Bld) [Vol rate/Area]66 mL/min/{1.73_m2}Normal>59ProThe Hospital At Westlake Medical CenterComment on above:Result Comment: Reported eGFR is based on the CKD-EPI 2020 equation that does not use a race coefficient.Performed By: #### MAYLIN VILLALPANDO, 3, 73-4 #### [facility] ([id number]) [address] [place] [address] 07101Lgefhbz [Mass/Vol]361 mg/kCBxec19-97FadRkcafdHarrison Community Hospital Comment on above:Performed By: #### MAYLIN VILLALPANDO, 3, 73-4 #### [facility] ([id number]) [address] [place] [address] 06210Ijrwwtobr [Moles/Vol]4.1 mmol/LNormal3.5-5.0ProThe Hospital At Westlake Medical CenterComment on above:Performed By: #### MAYLIN VILLALPANDO, 3043, 6873-4 #### [facility] ([id number]) [address] [place] [address] 04833Hvyfrky [Mass/Vol]8.1 g/dLHigh6.0-8.0[facility] Comment on above:Performed By: #### MAYLIN VILLALPANDO, 3040-3, 6873-4 #### [facility] ([id number]) [address] [place] [address] 42234Dcytms [Moles/Vol]134 mmol/ANzspqt359-715WdwHvkamk [facility] HospitalComment on above:Performed By: #### MAYLIN VILLALPANDO, 3040-3, 6873-4 #### [facility] ([id number]) [address] [place] [address] 99169Dlis nitrogen [Mass/Vol]19 mg/dLNormal5-27ProThe Hospital At Westlake Medical CenterComment on above:Performed By: #### MAYLIN VILLALPANDO, 3040-3, 6873-4 #### [facility] ([id number]) [address] [place] [address] 08864Afqlpwamthyih metabolic panelon 04-20-3512Hoyplen [Mass/Vol]3.6 g/dL3.2 - 5.3 g/dLProMedica Health SystemALP [Catalytic activity/Vol]131 U/L High39 - 130 U/LProMedica Health SystemALT No additional P-5'-P [Catalytic activity/Vol]22 U/L0 - 40 U/LProMedica Health SystemAnion gap [Moles/Vol]14 mmol/L5 - 15 mmol/LProMedica Health SystemAST [Catalytic activity/Vol]29 U/L0 - 41 U/LProMedica Health SystemBilirubin [Mass/Vol]0.8 mg/dL0.3 - 1.2 mg/dL ProMedica Health SystemCalcium [Mass/Vol]9.1 mg/dL8.5 - 10.5 mg/dLProMedica Health SystemChloride [Moles/Vol]98 mmol/L98 - 109 mmol/LProMedica Health System CO2 [Moles/Vol]22 mmol/L22 - 32 mmol/LProMedica Health SystemCreatinine [Mass/Vol]1.24 mg/dLHigh0.70 - 1.20 mg/dLMiddletown HospitalComment on above:METHOD TRACEABLE TO IDMS STANDARDeGFR (CKD-EPI)non-race vltgvojfo95- PINF [facility]letown HospitalComment on above: Reported eGFR is based on the CKD-EPI 2020 equation that does not use a race coefficient. Glucose [Mass/Vol]361 mg/pEEjrq79 - 99 mg/dLMiddletown Hospital Interpretation and review of laboratory resultsAbnormalMiddletown Hospital Potassium [Moles/Vol]4.1 mmol/L3.5 - 5.0 mmol/LProMedencompass health lakeshore rehabilitation hospital Health SystemProtein [Mass/Vol]8.1 g/dLHigh6.0 - 8.0 g/dLDuke University Hospitalodium [Moles/Vol]134 mmol/L134 - 146 mmol/LProMedOhio Valley Hospital SystemUrea nitrogen [Mass/Vol]19 mg/dL5 - 27 mg/dLWashington Health SystemCritical Careon 90-28-8901CslgiaDileep Mtz DO 11/20/2023 3:42 PM Critical Care Performed by: Dileep Mtz DO Authorized by: Dileep Mtz DO Critical care provider statement: Critical care time (minutes): 35 Critical care start time: arrival to the ED. Critical care end time: 11/20/2023 3:42 PM Critical care time was exclusive of: Separately billable procedures and treating other patients Critical care was necessary to treat or prevent imminent or life-threatening deterioration of the following conditions: Endocrine crisis (and GI complications) Critical care was time spent personally by me on the following activities: Blood draw for specimens, development of treatment plan with patient or surrogate, discussions with consultants, discussions with primary provider, evaluation of patient's response to treatment, examination of patient, interpretation of cardiac output measurements, obtaining history from patient or surrogate, ordering and performing treatments and interventions, ordering and review of laboratory studies, ordering and review of radiographic studies, pulse oximetry, re-evaluation of patient's condition and review of old charts Care discussed with: admitting provider Comments: And general surgeon as consultation.Washington Health SystemECG 12 leadOrdered By: Iraida Mcclelland on 01-20-7424ByoSsbcyqKettering Health Preble Glucose Glucometer (BldC) [Mass/Vol]on 92-08-3628Kmnsaou [Mass/Vol]156 mg/dLHigh 65 - 99 mg/dLProPremier Health Atrium Medical CenterInterpretation and review of laboratory resultsAbnormOhioHealth Marion General HospitalProPremier Health Atrium Medical CenterGlucose [Mass/Vol] 156 mg/xGMbld25-66JioVhusaoThe Hospital At Westlake Medical CenterGlucose [Mass/Vol]191 mg/wRNtbw47 - 99 mg/dLProPremier Health Atrium Medical CenterInterpretation and review of laboratory results AbnormalProPremier Health Atrium Medical CenterProPremier Health Atrium Medical CenterGlucose [Mass/Vol]191 mg/kKQfza05-83VlsVjfkajThe Hospital At Westlake Medical CenterGlucose [Mass/Vol]294 mg/gIEslb72 - 99 mg/dLMiddletown HospitalInterpretation and review of laboratory results AbnormalProClarion Psychiatric CenterGlucose [Mass/Vol]294 mg/zSVzfj38-33IwbAltskyHarrison Community HospitalLIPASEon 02-34-3915Swmfgy [Catalytic activity/Vol]47 U/PJref62-68YwvXzvwtkHarrison Community HospitalComment on above:Performed By: #### CBCA, [facility], 3040-3, 6873-4 #### [facility] ([id number]) [address] [place] [address] 35647Jtyjqsob 82-27-6569Fipzsi [Catalytic activity/Vol]47 U/LHigh17 - 40 U/LProMedOhio Valley Hospital SystemLipase [Catalytic activity/Vol]on 11-20-2023 Interpretation and review of laboratory resultsAbAspirus Stanley HospitalVENOUS BLOOD GASon 81-49-5465EKAHU'S TESTNoMercy Health Kings Mills HospitalComment on above:Performed By: #### VBG #### [facility] ([id number]) [address] [place] [address] 49284Tzvc excess Calc (Bld) [Moles/Vol]3.0 mmol/LHigh0.0-2.0 [facility] HospitalComment on above:Performed By: #### VBG #### [facility] ([id number]) [address] [place] [address] 96697Lyjk gjoazpndsjb79.6 [degF]Mvzlyc43.0[facility] Comment on above:Performed By: #### VBG #### [facility] ([id number]) [address] [place] [address], [place] [address]CMG6 (Bld) [Moles/Vol]29.2 mmol/LHigh20.0-24.0[facility] HospitalComment on above:Performed By: #### VBG #### [facility] ([id number]) [address] [place] [address] 27595Sselwj saturation in Blood42.0 %Low>80.0[facility] HospitalComment on above:Performed By: #### VBG #### [facility] ([id number]) [address] [place] [address] 02050KOZVUY SOURCERoomAirNormalHarrison Community HospitalComment on above:Performed By: #### VBG #### [facility] ([id number]) [address] [place] [address] 22312QFZ6, VVWKTO92.3 QJOTCbbelt36-96PfaTeesnzHarrison Community Hospital Comment on above:Performed By: #### VBG #### [facility] ([id number]) [address] [place] [address] 35878PC, VENOUS7.998Xrjksa2.320-7.420[facility] Comment on above:Performed By: #### VBG #### [facility] ([id number]) [address] [place] [address], [place] [address]IO[address], OXJCSI11 ICRJCwy53-66PxwOlozviHarrison Community HospitalComment on above:Performed By: #### VBG #### [facility] ([id number]) [address] [place] [address]8853LDXCTB SITEN/ANormLake County Memorial Hospital - WestComment on above: Performed By: #### VBG #### [facility] ([id number]) [address] [place] [address], [place], [place] [address]BAABLC TYPEVENOUSNormLake County Memorial Hospital - WestComment on above:Performed By: #### VBG #### [facility] ([id number]) [address] [place] [address], [place], [place] [address]JL ABDOMEN AP 1 VWon 81-68-5766EZ ABDOMEN AP 1 VWXR ABDOMEN AP 1 VW HISTORY: Abdominal pain COMPARISON: CT abdomen and pelvis 11/18/2023 FINDINGS: Multiple supine views of the abdomen were obtained. Nonobstructive bowel gas pattern. Moderate stool burden in the colon. Vascular calcifications in the pelvis. No acute osseous abnormality. IMPRESSION: * Nonobstructive bowel gas pattern with moderate stool burden. Finalized by Philip Adams MD on 11/20/2023 2:49 PMNormalHarrison Community HospitalXR Abdomen APon 11-20-2023 HISTORY: Abdominal pain COMPARISON: CT abdomen and pelvis 11/18/2023 FINDINGS: Multiple supine views of the abdomen were obtained. Nonobstructive bowel gas pattern. Moderate stool burden in the colon. Vascular calcifications in the pelvis. No acute osseous abnormality. IMPRESSION: * Nonobstructive bowel gas pattern with moderate stool burden. Finalized by Philip Adams MD on 11/20/2023 2:49 PMSLITTLE RIVER MEMORIAL HOSPITALJatinderPhilip marshall MD - 11/20/2023 HISTORY: Abdominal pain COMPARISON: CT abdomen and pelvis 11/18/2023 FINDINGS: Multiple supine views of the abdomen were obtained. Nonobstructive bowel gas pattern. Moderate stool burden in the colon. Vascular calcifications in the pelvis. No acute osseous abnormality. IMPRESSION: * Nonobstructive bowel gas pattern with moderate stool burden. Finalized by Philip Adams MD on 11/20/2023 2:49 PM [facility] HospitalRadiology Study observation (narrative)M[facility]letown HospitalXR Abdomen APOrdered By: Philip Adams on 61-72-6314PnxBevjgmKettering Health Preble Work Phone: CT ABDOMEN AND PELVIS W WO CONTon 04-36-2033HR ABDOMEN AND PELVIS W WO CONTCT ABDOMEN AND PELVIS W WO CONT CT ABDOMEN AND PELVIS W WO CONT HISTORY: Generalized abdominal pain COMPARISON: CT abdomen pelvis 06/06/2012 TECHNIQUE: CT images of abdomen and pelvis obtained with and without intravenous contrast. Automated exposure control was utilized. All CT scans at this facility use dose modulation, iterative reconstruction, and/or weight based dosing when appropriate to reduce radiation dose to as low as reasonably achievable. CONTRAST: Oral: None IV: 100 mL Omnipaque 300 FINDINGS: LOWER CHEST: Bilateral gynecomastia. Evaluation of the lung bases is suboptimal secondary to respiratory motion artifact. LIVER AND BILIARY: Noncirrhotic liver morphology. No suspicious hepatic mass or lesion. The portal venous system appears patent. There is gallbladder wall thickening and pericholecystic fat stranding. Large volume of gas seen within the gallbladder which appears to be extending to a defect in the wall which closely abuts and likely communicates with the adjacent duodenum. The adjacent D2 segment of duodenum has evidence of wall thickening and surrounding fat stranding. Equivocal fistulous communication (series 4, image 24). PANCREAS: Unremarkable SPLEEN: Unremarkable. ADRENALS: No adrenal mass or lesion. KIDNEYS, URETERS, AND BLADDER: No suspicious renal mass or lesion.. No collecting system dilatation. No renal calculi.. Ureters and bladder are unremarkable. GI TRACT AND PERITONEUM: The appendix is not well-visualized. Terminal ileum is unremarkable appearing. There is no evidence of bowel obstruction. Large burden of stool in the colon. Inflammatory changes with apparent defect within the wall of the D2 segment of duodenum and adjacent gallbladder. VASCULATURE: Unremarkable LYMPH NODES: No enlarged lymph nodes by size criteria. REPRODUCTIVE ORGANS: Unremarkable MUSCULOSKELETAL: No acute abnormalities. 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 Given the degree of inflammatory change, correlate for underlying duodenal ulceration. No evidence of bowel obstruction/gallstone ileus. THIS REPORT CONTAINS A SIGNIFICANT RESULT AND/OR RECOMMENDATION, WHICH REQUIRES THE ATTENTION OF THE LICENSED CAREGIVER RESPONSIBLE FOR THIS PATIENT. THEREFORE, I SPECIFICALLY DESIGNATED THIS REPORT TO BE TELEPHONED BY THE RADIOLOGY DEPARTMENT. FINDINGS WERE INSTRUCTED TO BE CALLED TO THE CLINICAL SERVICE ON 11/19/2023 AT 1620 hours. Approved by Resident Juan Mcmillan DO on 11/19/2023 2:04 PM I, Michelet Alejandro MD have personally reviewed the image(s) and agree with and/or edited the report Finalized by Michelet Alejandro MD on 11/19/2023 4:20 PMNormalHarrison Community HospitalBASIC METABOLIC PANLon 15-61-0576Neqwi gap [Moles/Vol]13 mmol/LNormal 5-15[facility] HospitalComment on above:Performed By: #### CBCA, BMP, LIVR #### [facility] ([id number]) [address], [address] [place], [place] [address]Omtsjeb [Mass/Vol]8.8 mg/dLNormal8.5-10.5PEast Liverpool City HospitalComment on above:Performed By: #### CBCA, BMP, LIVR #### [facility] ([id number]) [address], [address] [place], [place] [address]Iwzgpmtx [Moles/Vol]96 mmol/KUma31-492IxrQlvfwxHarrison Community Hospital Comment on above:Performed By: #### CBCA, BMP, LIVR #### [facility] ([id number]) [address], [address] [place], [place] [address]SF6 [Moles/Vol]25 mmol/ZHghvsk25-79TpmWsbbacEast Liverpool City Hospital Comment on above:Performed By: #### CBCA, BMP, LIVR #### [facility] ([id number]) [address], [address] [place], [place] [address]Atjqjyaltb [Mass/Vol]1.33 mg/dLHigh0.60-1.30[facility] HospitalComment on above:Result Comment: METHOD TRACEABLE TO IDMS STANDARD Performed By: #### CBCA, BMP, LIVR #### [facility] ([id number]) [address], [address] [place], [place] [address]ZSH/1.73 sq M.predicted among non-blacks MDRD (S/P/Bld) [Vol rate/Area]61 mL/min/{1.73_m2}Normal>59ProThe Hospital At Westlake Medical CenterComment on above:Result Comment: Reported eGFR is based on the CKD-EPI 2020 equation that does not use a race coefficient.Performed By: #### IRASEMA BMP, LIVR #### [facility] ([id number]) [address] [address] [place], [place] [address]Bjomumb [Mass/Vol]345 mg/zKBvmi60-02WmtDtlrjnThe Hospital At Westlake Medical Center Comment on above:Performed By: #### YUMIKO VILLALPANDO, LIVR #### [facility] ([id number]) [address] [address] [place], [place] [address]Alxvqzytq [Moles/Vol]3.7 mmol/LNormal3.5-5.0ProThe Hospital At Westlake Medical CenterComment on above:Performed By: #### IRASEMA BMP, LIVR #### [facility] ([id number]) [address] [address] [place], [place] [address]Mqfnbw [Moles/Vol]134 mmol/XQhohnk220-629OzoVmxoqf [facility]remont HospitalComment on above:Performed By: #### IRASEMA BMP, LIVR #### [facility] ([id number]) [address] [address] [place], [place] [address]Ptsf nitrogen [Mass/Vol]19 mg/dLNormal5-27ProThe Hospital At Westlake Medical CenterComment on above:Performed By: #### CBCDelaney BMP, LIVR #### [facility] ([id number]) [address], [facility] [address] [place], [place] [address]UWV AND AUTO DIFFon 35-15-7142HLLGZNDI BASOPHIL0.1 X10E9/LNormal 0.0-0.2PEast Liverpool City HospitalComment on above:Performed By: #### CBCDelaney BMP, LIVR #### [facility] ([id number]) [address], [address] [place], [place] [address]XEMKMUOA NEUTROPHIL6.9 X10E9/LHigh1.5-6.6ProThe Hospital At Westlake Medical CenterComment on above:Performed By: #### CBCA, BMP, LIVR #### [facility] ([id number]) [address], [facility] [address] [place], [place] [address]Recdwhlds/100 WBC (Bld)1.5 %[facility] Comment on above:Performed By: #### CBCA, BMP, LIVR #### [facility] ([id number]) [address] [address]Wwzrbbfmvhc (Bld) [#/Vol]0.1 10*3/uLNormal0.0-0.4ProThe Hospital At Westlake Medical CenterComment on above:Performed By: #### CBCA, BMP, LIVR #### [facility] ([id number]) [address], [address] [place], [place] [address]Kkbebetpoyb/100 WBC (Bld)1.1 %[facility] Comment on above:Performed By: #### CBCA, BMP, LIVR #### [facility] ([id number]) [address] [address]Wkegryotsvl distribution width (RBC) [Ratio]14.2 %Normal 11.5-15.0[facility] HospitalComment on above:Performed By: #### CBCA, BMP, LIVR #### [facility] ([id number]) [address], [address] [address]Aqxkptrero (Bld) [Volume fraction]42.4 %Pcoaqc62-01EhfFfqzhyThe Hospital At Westlake Medical CenterComment on above:Performed By: #### CBCA, BMP, LIVR #### [facility] ([id number]) [address], [address] [place] [address]Hftlbkvekb (Bld) [Mass/Vol]14.3 g/mVLroung30.0-17.0[facility] HospitalComment on above:Performed By: #### CBCA, BMP, LIVR #### [facility] ([id number]) [address], [address] [place] [address]Nveutxftpka (Bld) [#/Vol]1.0 10*3/uLNormal1.0-3.5PEast Liverpool City HospitalComment on above:Performed By: #### CBCA, BMP, LIVR #### [facility] ([id number]) [address], [address] [place], [place] [address]Aosdhhxpesp/100 WBC (Bld)11.8 %NormalProThe Hospital At [facility] Medical Center Comment on above:Performed By: #### CBCA, BMP, LIVR #### [facility] ([id number]) [address], [address] [place] [address]XAX (RBC) [Entitic mass]33.0 emIhcsnx78-39YfyUhechmThe Hospital At Westlake Medical CenterComment on above:Performed By: #### CBCA, BMP, LIVR #### [facility] ([id number]) [address], [address] [place] [address]YVZW (RBC) [Mass/Vol]33.8 g/sYHortun72-02TspUisslhThe Hospital At Westlake Medical CenterComment on above:Performed By: #### CBCA, BMP, LIVR #### [facility] ([id number]) [address], [address] [place], [place] [address]QWK (RBC) [Entitic vol]98 bTSzhtiy26-689SpnAaxrug [facility] HospitalComment on above:Performed By: #### CBCA, BMP, LIVR #### [facility] ([id number]) [address], [address] [place], [place] [address]Kebrtighg (Bld) [#/Vol]0.6 10*3/uLNormal0-0.9[facility] HospitalComment on above:Performed By: #### CBCA, BMP, LIVR #### [facility] ([id number]) [address], [address] [place] [address]Jymapasoj/100 WBC (Bld)7.4 %[facility] Comment on above:Performed By: #### CBCA, BMP, LIVR #### [facility] ([id number]) [address], [address] [place], [place] [address]Zlaojhqwrzq/100 WBC (Bld)78.2 %[facility] Comment on above:Performed By: #### CBCA, BMP, LIVR #### [facility] ([id number]) [address], [address] [place] [address]Aovydppn mean volume (Bld) [Entitic vol]7.7 fLNormal7-12 [facility] HospitalComment on above:Performed By: #### CBCA, BMP, LIVR #### [facility] ([id number]) [address], [address] [place] [address]Itzalheha (Bld) [#/Vol]397 10*3/gLJggrmf499-005HvoKkzjdz [facility] HospitalComment on above:Performed By: #### CBCA, BMP, LIVR #### [facility] ([id number]) [address], [address] [place] [address]NKM COUNT4.34 X10E12/LNormal4.10-5.70[facility] Comment on above:Performed By: #### CBCA, BMP, LIVR #### [facility] ([id number]) [address], [address] [place] [address]HFZ (Bld) [#/Vol]8.8 10*3/uLNormal4.0-11.0ProThe Hospital At Westlake Medical CenterComment on above:Performed By: #### YUMIKO VILLALPANDO, LIVR #### [facility] ([id number]) [address], [address] [place] [address]UUPTS PANELon 65-36-4547Ktacede [Mass/Vol]3.3 g/dLNormal3.2-5.3 ProMedicHassler Health FarmComment on above:Performed By: #### IRASEMA, BMP, LIVR #### [facility] ([id number]) [address], [address] [place] [address]YDM [Catalytic activity/Vol]194 U/TFhqg32-378AgcSqtdbyThe Hospital At Westlake Medical CenterComment on above:Performed By: #### IRASEMA BMP, LIVR #### [facility] ([id number]) [address], [address] [place] [address]BFA [Catalytic activity/Vol]22 U/LNormal0-40ProThe Hospital At Westlake Medical CenterComment on above:Performed By: #### IRASEMA BMP, LIVR #### [facility] ([id number]) [address], [address] [place] [address]RUC [Catalytic activity/Vol]25 U/LNormal0-41ProThe Hospital At Westlake Medical CenterComment on above:Performed By: #### IRASEMA, BMP, LIVR #### [facility] ([id number]) [address], [address] [place], [place] [address]Iivukxifx [Mass/Vol]1.0 mg/dLNormal0.3-1.2PEast Liverpool City HospitalComment on above:Performed By: #### IRASEMA, BMP, LIVR #### [facility] ([id number]) [address], [address] [place], [place] [address]Xqpeehneh.direct [Mass/Vol]0.1 mg/dLNormal0.0-0.4ProThe Hospital At Westlake Medical CenterComment on above:Performed By: #### CBCA, BMP, LIVR #### [facility] ([id number]) [address], [address] [place], [place] [address]Iowdndi [Mass/Vol]8.0 g/dLNormal6.0-8.0[facility] HospitalComment on above:Performed By: #### CBCA, BMP, LIVR #### [facility] ([id number]) [address], [facility] [address] [place], [place] [address]HRV A1C (GLYCO-HGB)on 70-29-6837Wlcvtog [Mass/Vol]217 mg/dL NormalProThe Hospital At Westlake Medical CenterComment on above:Performed By: #### HA1C #### [facility] ([id number]) [address], [facility] [address] [place], [place] [address]KwR9s (Bld) [Mass fraction]9.2 %High4.4-5.6ProThe Hospital At Westlake Medical CenterComment on above:Result Comment: NOTE ADA Guidelines Result HgbA1c Normal : less than 5.7 % Prediabetes : 5.7 % to 6.4 % Diabetes : > 6.4 % Use with caution in patients with abnormal hemoglobin variants as the half-life of red blood cells and in vivo glycation rates are affected.Performed By: #### HA1C #### [facility] ([id number]) [address], [facility] [address] [place], [place] [address]OX SINGLE QUAD RT UPPERon [id number] SINGLE QUAD RT UPPEREXAM: Ultrasound of the right upper quadrant. HISTORY: . Abdominal colic . COMPARISON: None. TECHNIQUE: Grayscale and color imaging was performed FINDINGS: The body of the pancreas appears normal. The head and tail was obscured due to overlying bowel gas. Scanning of the liver demonstrates a liver to be slightly enlarged measuring 20 cm. There is diffuse increased echogenicity of liver consistent with fatty infiltration of the liver. Color-flow is noted in the portal and hepatic veins. The gallbladder appears normal with no stones or sludge identified. No gallbladder wall thickening is noted. Common bile duct measures 3 mm. Right kidney measured 11.3 x 6.4 x 4.8 cm. No solid renal cortical masses or hydronephrosis is noted. No fluid is noted in the right upper quadrant. IMPRESSION: 1. Liver is enlarged measuring 20 cm. There is increased echogenicity of liver consistent with fatty infiltration of the liver. 2. The body of the pancreas appears normal. The head and tail was obscured due to overlying bowel gas. 3. The remainder of the right upper quadrant was unremarkable. Electronically authenticated by: DESIRAE ESPINOZA Date: 2021-08-19 09:59[facility] CenterGLYCOHEMOGLOBIN A1Con [id number] RECOMMENDATIONSEE BELOW NormalThe [facility] CenterComment on above:Result Comment: ADA RECOMMENDED LIMIT 4.0 - 6.0 ADA THERAPEUTIC TARGET < 7.0 ACTION SUGGESTED > 7.0Performed By: #### A1C ####[facility] [address] [address]Dr.Yilan IbanezGlucose [Mass/Vol]232 mg/dLNoUniversity Hospitals Lake West Medical CenterComment on above:Performed By: #### A1C ####[facility] N[address]fr[address]jic[address] [address]Dr.Yilan IbanezHbA1c (Bld) [Mass fraction]9.7 % Critically high4.5-6.2The [facility] Medical CenterComment on above:Performed By: #### A1C ####[facility] [address] [address]Dr. Pearson ChangGLYCOHEMOGLOBIN A1Con [id number] RECOMMENDATIONADA THERAPEUTIC TARGET 6.0 - 7.0 ACTION SUGGESTED > 7.0NoUniversity Hospitals Lake West Medical CenterComment on above:Performed By: #### A1C #### [facility] Laboratory [address] [address] [address] Michel IbanezGlucose [Mass/Vol]214 mg/dLNoUniversity Hospitals Lake West Medical CenterComment on above:Performed By: #### A1C #### [facility] [address] [address] [address] Michel BroA1c (Bld) [Mass fraction]9.1 %Critically high<=6.0The [facility]itt[facility] Medical CenterComment on above:Performed By: #### A1C #### [facility] [address] [address] [address] Michel IbanezGLYCOHEMOGLOBIN A1Con [id number] RECOMMENDATIONADA THERAPEUTIC TARGET 6.0 - 7.0 ACTION SUGGESTED > 7.0NormGood Samaritan HospitalComment on above:Performed By: #### A1C #### [facility] [address] [address] [address] Michel IbanezGlucose [Mass/Vol]266 mg/dLNoUniversity Hospitals Lake West Medical CenterComment on above:Performed By: #### A1C #### [facility] Laboratory [address] [place] [address] Dr. Michel BroA1c (Bld) [Mass fraction]10.9 %Critically high<=6.0The [facility] Medical CenterComment on above:Performed By: #### A1C #### [facility] [address] [address] [address] Michel IbanezCBC AUTO DIFFon [id number] #0.1 103/ulNormal0.0-0.1The [facility] Medical CenterComthree rivers health hospital on above:Performed By: #### CBC ####[facility] X[address] [place], [place] [address]Gerken KarenBasophils/100 WBC (Bld)0.6 %Normal0.2-2.0The [facility] Medical CenterComment on above:Performed By: #### CBC ####[facility] [address] [address]Gerken KarenEO #0.3 103/ulNormal0.0-0.7The [facility] Medical CenterComthree rivers health hospital on above:Performed By: #### CBC ####[facility] [address] [address]Gerken KarenEosinophils/100 WBC (Bld)3.2 %Normal 0.9-7.0The [facility]itt[facility] Medical CenterComment on above:Performed By: #### CBC ####[facility] V[address] [place] [address] Brittney Erythrocyte distribution width (RBC) [Ratio]14.0 %Rfdyyh81.0-15.0The [facility] Medical CenterComment on above:Performed By: #### CBC ####[facility] Kh[address]qv[address] [place] [address] KarenHematocrit (Bld) [Volume fraction]47.0 %Glxfsb49.0-54.0The Winner HospitalComment on above: Performed By: #### CBC ####[facility] C[address] [place] [address] KarenHemoglobin (Bld) [Mass/Vol]16.0 g/dLNormal 14.0-18.0The [facility] Medical CenterComment on above:Performed By: #### CBC ####[facility] [address] [place] [address] KarenIG #0.02 10e3/ulNormal0.00-0.03The [facility] Medical CenterComment on above: Performed By: #### CBC ####[facility] [address] [place] [address] KarenIG %0.3 %Normal0.0-0.5The [facility] Medical CenterComment on above:Performed By: #### CBC ####[facility] W[address] [place] [address] KarenLYMPH #1.7 103/ul Normal1.2-3.8The [facility]itt[facility] Medical CenterComment on above:Performed By: #### CBC ####[facility] [address] [place] [address] KarenLymphocytes/100 WBC (Bld)21.3 %Hkrfyz28.5-60.0The [facility] Medical CenterComment on above:Performed By: #### CBC ####[facility] U[address] [place] [address] KarenMANUAL DIFF REQNONormalThe [facility] Medical CenterComment on above:Performed By: #### CBC ####[facility] Gcruyuklmq[address]91 [address] KarenST. VINC[facility] (RBC) [Entitic mass]33.4 wwDppumv24.9-34.0The [facility] Medical CenterComment on above: Performed By: #### CBC ####[facility] Umyfszah[address] [place] [address] KarenPHELPS [facility] (RBC) [Mass/Vol]34.0 g/dLNormal 29.9-35.2The [facility]inner HospitalComment on above:Performed By: #### CBC ####[facility] Meawavucfq[address] [place] [address] KarenV (RBC) [Entitic vol]98.1 fLCritically high80.0-94.0The [facility] Comment on above:Performed By: #### CBC ####[facility] Iixw[address]qcqp[address] [place] [address] KarenMONO #0.5 103/ulNormal0.3-0.8The [facility] Medical CenterComment on above:Performed By: #### CBC ####[facility] [address]jfskpzew[address] [place] [address] KarenMonocytes/100 WBC (Bld)6.1 %Normal1.7-12.0The [facility] Medical CenterComment on above:Performed By: #### CBC ####[facility] [address] [place] [address] KarenNEUT #5.4 103/ulNormal1.4-6.5The [facility] Medical CenterComment on above:Performed By: #### CBC ####[facility] Lteqsahqdy[address] [place] [address] KarenNeutrophils/100 WBC (Bld)68.5 %Normal 43.0-75.0The [facility] Medical CenterComment on above:Performed By: #### CBC ####[facility] Nfaccivpxl[address] [place] [address] KarenPlatelet mean volume (Bld) [Entitic vol]10.2 fLNormal9.5-13.5The [facility] CenterComment on above:Performed By: #### CBC ####[facility] Kthchsslwg4373 [address] OisubXOR108 103/ul Nyrmxi889-237Ceg [facility] CenterComment on above:Performed By: #### CBC ####[facility] [address]arvmjp[address] [address]Gerken KarenRBC4.79 106/ulNormal4.70-6.10The [facility]inner HospitalComment on above: Performed By: #### CBC ####[facility] Frbgfnuuqu[address] KarenWBC7.9 103/ulNormal4.0-11.0The [facility] Medical CenterComment on above:Performed By: #### CBC ####[facility] [address]ongrg[address] [address]Gerken KarenGLYCOHEMOGLOBIN A1Con [id number] RECOMMENDATIONADA THERAPEUTIC TARGET 6.0 - 7.0 ACTION SUGGESTED > 7.0NoUniversity Hospitals Lake West Medical CenterComment on above:Performed By: #### A1C #### [facility] Laboratory [address] [address] Whitley KarenGlucose [Mass/Vol]249 mg/dLNoUniversity Hospitals Lake West Medical CenterComthree rivers health hospital on above:Performed By: #### A1C #### [facility] Laboratory [address] [address] Whitley IfzifMfE7o (Bld) [Mass fraction]10.3 %Critically high<=6.0The [facility] Medical CenterComment on above:Performed By: #### A1C #### [facility] Laboratory [address] [address] [place] KarenLIPID PROFILEon [id number]-HDL RATIO NORMSEE BELOWUniversity Hospitals Elyria Medical CenterComment on above:Result Comment: 3.3 - 4.4 LOW RISK 4.4 - 7.1 AVERAGE RISK 7.1 - 11.0 MODERATE RISK >11.0 HIGH RISKPerformed By: #### AST, LIPID, TSH, BMP, PSAD, ALT #### [facility] [address] [address] Whit[place] KarenCholesterol [Mass/Vol]161 mg/dLNormal<=200[facility] Comment on above:Performed By: #### AST, LIPID, TSH, BMP, PSAD, ALT #### [facility] [address] [address] Whit[place] KarenCholesterol in HDL [Mass/Vol]60 mg/dLUniversity Hospitals [facility] Comment on above:Performed By: #### AST, LIPID, TSH, BMP, PSAD, ALT #### [facility] [address] [address] Whit[place] KarenCholesterol in LDL [Mass/Vol]70.8 mg/dLUniversity [facility]als [facility] Comment on above:Performed By: #### AST, LIPID, TSH, BMP, PSAD, ALT #### [facility] [address] [place] [address] Whitley KarenCholesterol.total/Cholesterol in HDL [Mass ratio]2.7 {ratio}Normal The [facility]itt[facility] Medical CenterComment on above:Performed By: #### AST, LIPID, TSH, BMP, PSAD, ALT #### [facility] [address] [place] [address] Whitley KarenHDL NORMAL> or = 60 mg/dl - LOW CARDIOVASCULAR RISK <40 mg/dl - HIGH CARDIOVASCULAR RISKUniversity Hospitals Elyria Medical CenterComment on above:Performed By: #### AST, LIPID, TSH, BMP, PSAD, ALT #### [facility] [address] [place] [address] [place] KarenLDL CALC NORMALSEE BELOWUniversity Hospitals Elyria Medical CenterComment on above: Result Comment: <100 mg/dl OPTIMAL 100 - 129 mg/dl NEAR OR ABOVE OPTIMAL 130 - 159 mg/dl BORDERLINE HIGH 160 - 189 mg/dl HIGH >190 mg/dl VERY HIGHPerformed By: #### AST, LIPID, TSH, BMP, PSAD, ALT #### [facility] [address] [place] [address] Whit[place] KarenTriglyceride [Mass/Vol]151 mg/dLCritically high<=150[facility] CenterComment on above:Performed By: #### AST, LIPID, TSH, BMP, PSAD, ALT #### [facility] [address] [address] Whit[address] KarenVLDL CALC30.2 mg/dLNormalThe [facility] CenterComment on above: Performed By: #### AST, LIPID, TSH, BMP, PSAD, ALT #### [facility] [address] [address] Whit[address] KarenMICROALBUMIN, RAND URon [id number]<1.3Normal<=30.0[facility] CenterComment on above:Performed By: #### MALBR ####[facility] [address] [address]Gerken KarenPROF CHEM 8 (BAS METB)on [id number] gap [Moles/Vol]15.7 mmol/LNormalUniversity [facility]als [facility] Comment on above:Performed By: #### AST, LIPID, TSH, BMP, PSAD, ALT #### [facility] [address] [address] Whitley KarenCalcium [Mass/Vol]8.9 mg/dLNormal8.4-10.2[facility] Comment on above:Performed By: #### AST, LIPID, TSH, BMP, PSAD, ALT #### [facility] [address] [address] [place] KarenChloride [Moles/Vol]101 mmol/OJsgndg31-545WwjUniversity Hospitals Ahuja Medical Center Comment on above:Performed By: #### AST, LIPID, TSH, BMP, PSAD, ALT #### [facility] [address] [address] [address] KarenCO2 [Moles/Vol]28.3 mmol/UJetsfc40.0-30.0[facility] Comment on above:Performed By: #### AST, LIPID, TSH, BMP, PSAD, ALT #### [facility] [address] [address] [place] KarenCreatinine [Mass/Vol]1.17 mg/dLNormal0.66-1.25The [facility] Comment on above:Performed By: #### AST, LIPID, TSH, BMP, PSAD, ALT #### [facility] [address] [address] [place] KarenEGFR-AF SAMMARINESE>60Normal>=60The [facility]itt[facility] Medical CenterComment on above: Performed By: #### AST, LIPID, TSH, BMP, PSAD, ALT #### [facility] [address] [address] [place] KarenEGFR-NON AF SAMMARINESE>60Normal>=60The [facility] CenterComment on above:Performed By: #### AST, LIPID, TSH, BMP, PSAD, ALT #### [facility] [address] [place] [address] [place] KarenGlucose [Mass/Vol]331 mg/dLCritically eenx45-182Tbz [facility] CenterComment on above:Performed By: #### AST, LIPID, TSH, BMP, PSAD, ALT #### [facility] [address] [address] [address] KarenPotassium [Moles/Vol]4.0 mmol/LNormal3.4-5.0[facility] Comment on above:Performed By: #### AST, LIPID, TSH, BMP, PSAD, ALT #### [facility] [address] [place] [address] [place] KarenSodium [Moles/Vol]141 mmol/IGgjwpa076-761Ohq [facility] Comment on above:Performed By: #### AST, LIPID, TSH, BMP, PSAD, ALT #### [facility] [address] [place] [address] [place] KarenUrea nitrogen [Mass/Vol]14.0 mg/dLNormal9.0-20.0The [facility] Medical CenterComment on above:Performed By: #### AST, LIPID, TSH, BMP, PSAD, ALT #### [facility] [address] [address] Whitley KarenUrea nitrogen/Creatinine [Mass ratio]12.0 mg/mgNormalThe Winner HospitalComthree rivers health hospital on above:Performed By: #### AST, LIPID, TSH, BMP, PSAD, ALT #### [facility] [address] [place] [address] Whitley Courtney 20-32-7686PEH [Catalytic activity/Vol]26 U/ZPclmds04-62Bks [facility] on above:Performed By: #### AST, LIPID, TSH, BMP, PSAD, ALT #### [facility] [address] [place] [address] Whit[place] MoyerOptim Medical Center - [facility]attnall 85-08-8210HOT [Catalytic activity/Vol]30 U/GQnwqyl13-15Mmt [facility] on above:Performed By: #### AST, LIPID, TSH, BMP, PSAD, ALT #### [facility] [address] [place] [address] Whitley VillagomezHon 10-05-7550RMQ1.568 uIU/mLNormal0.470-4.680The [facility] on above:Performed By: #### AST, LIPID, TSH, BMP, PSAD, ALT #### [facility] Laboratory [address] [place] [address] Whitley PalaciosenTSH RANGESCleveland Clinic Medina HospitalComthree rivers health hospital on above:Result Comment: <0.34 UIU/ml HYPERTHYROID 0.34-5.60 UIU/ml EUTHYROID >5.60 UIU/ml HYPOTHYROIDPerformed By: #### AST, LIPID, TSH, BMP, PSAD, ALT #### [facility] [address] [place] [address] Whitley PalaciosenVITAMIN D 25 OHon 63-14-1361IFG D 25-OH33.8 ng/mLNormalThe [facility] CenterComthree rivers health hospital on above:Performed By: #### VITAD #### [facility] Laboratory [address] [place] [address] Whitley PalaciosenVIT D RANGESSEE [facility] HospitalComthree [facility] hospital on above: Result Comment: <20 ng/mL Vit D deficient 20 - <30 ng/mL Vit D insufficient 30 - 100 ng/mL Vit D sufficient >100 ng/mL Potential ToxicityPerformed By: #### VITAD #### [facility] [address] [place], [place] [address] Whitley Lugo Vital Signs Date TimeVital SignValuePerforming JmkbyfzkoMxnzgaef16-87-6970 11:20-0400Body .34 cmDavion Pritchard MD Work Phone: [phone]10-02-2025 11:20-0400 Body mass index (BMI) [Ratio]33.2 kg/m2Davion Pritchard MD Work Phone: [phone]10-02-2025 11:20-0400 Body bgogbstfpef75.1 [degF]Davion Pritchard MD Work Phone: [phone])39444 [address]10-02-2025 11:20-0400 Body bdimii713.95 kgDavion Pritchard MD Work Phone: [phone])83144 [address]10-02-2025 11:20-0400 Diastolic blood jjnvyand06 mm[Hg]Davion Pritchard MD Work Phone: 1(006)94344 [address]10-02-2025 11:20-0400 Heart rate67 /minDavion Pritchard MD Work Phone: [phone])[address]10-02-2025 11:20-0400 Respiratory rate18 /minDavion Pritchard MD Work Phone: [phone] [place], [place] [address]10-02-2025 11:20-0400 SaO2% (BldA) [Mass fraction]98 %Davion Pritchard MD Work Phone: [phone])[address]10-02-2025 11:20-0400 Systolic blood mm[Hg]Davion Pritchard MD Work Phone: [phone])36144 [address]08-06-2025 11:11-0400 Body eazxhd111.8 cmDavion Pritchard MD Work Phone: [facility] HospitalDrgpedguds37-94-4002 11:11-0400Body mass index (BMI) [Ratio]35.58 kg/m2Davion Pritchard MD Work Phone: [facility] HospitalWyafjpjhdy97-53-4720 11:11-0400Body temperature 97.3 [degF]Davion Pritchard MD Work Phone: [facility] HospitalIotyehytzt99-62-4435 11:11-0400Body nvuvss383.49 kgDavion Pritchard MD Work Phone: [facility] HospitalEztjmkzrfc29-75-3893 11:11-0400Diastolic blood wmykpzux99 mm[Hg]Davion Pritchard MD Work Phone: [facility] HospitalLbgdjzmpwl40-03-8511 11:11-0400Heart rate73 /min Davion Pritchard MD Work Phone: [facility] HospitalFwdzaabsat78-77-3639 11:11-0400Respiratory rate20 /minDavion Pritchard MD Work Phone: [facility] HospitalFyxblteieq65-57-7823 11:11-9588StW4% (BldA) [Mass fraction]97 %Davion Pritchard MD Work Phone: [facility] HospitalOexolueail36-92-1018 11:11-0400Systolic blood oekrzeda819 mm[Hg]Davion Pritchard MD Work Phone: [facility] HospitalOancvnqnqe77-11-5542 13:24-0400Body .8 cmDavion Pritchard MD Work Phone: [facility] HospitalMlyoynwckc30-21-1001 13:24-0400Body mass index (BMI) [Ratio]37.16 kg/m2Davion Pritchard MD Work Phone: [facility] HospitalUhqrvmfhcw06-23-3708 13:24-0400Body temperature 97.5 [degF]Davion Pritchard MD Work Phone: [facility] HospitalJrfetavawc65-88-2357 13:24-0400Body odpnmk950.48 kgDavion Pritchard MD Work Phone: [facility] HospitalJvzkotfzqc14-59-6829 13:24-0400Diastolic blood jweiprrr08 mm[Hg]Davion Pritchard MD Work Phone: [facility] HospitalDfujdmpvuq66-36-2308 13:24-0400Heart rate52 /min Davion Pritchard MD Work Phone: [facility] HospitalGnhvvpzdru54-19-5980 13:24-0400Respiratory rate18 /minDavion Pritchard MD Work Phone: [facility] HospitalGzyhaioeuv11-76-5302 13:24-7173CrP9% (BldA) [Mass fraction]98 %Davion Pritchard MD Work Phone: [facility] HospitalHkuedovxdf18-57-0734 13:24-0400Systolic blood fljvyreb512 mm[Hg]Davion Pritchard MD Work Phone: [facility] HospitalAhohzlwohs72-33-3781 10:03-0500Body mass index (BMI) [Ratio]34.87 kg/m2Davion Pritchard MD Work Phone: [facility] HospitalKyfdvvdalm82-00-3942 10:03-0500Body temperature 97.59 [degF]Davion Pritchard MD Work Phone: [facility] HospitalVmogexsvvx07-56-8295 10:03-0500Body jyqtbl900.22 kgDavion Pritchard MD Work Phone: [facility] HospitalXuratmfbyi89-53-5061 10:03-0500Diastolic blood xasqaykh05 mm[Hg]Davion Pritchard MD Work Phone: [facility] HospitalFjrcnapcgq78-54-8140 10:03-0500Heart rate84 /min Davion Pritchard MD Work Phone: [facility] HospitalAlufoosspf30-97-7072 10:03-2785JgB3% (BldA) [Mass fraction]99 %Davion Pritchard MD Work Phone: [facility] HospitalQaknnoctog54-23-1361 10:03-0500Systolic blood mm[Hg]Davion Pritchard MD Work Phone: [facility] HospitalFvonibzkvw63-65-9540 14:42-0500Body .8 cmAntscott Alberto DPM Work Phone: [facility] HospitalOmljxonxob76-45-8650 14:42-0500Body mass index (BMI) [Ratio]38.6 kg/v8Omuqaaj Rusher DPM Work Phone: [facility]habWgalnnzyyb79-04-8596 14:42-0500Body nzvvli275.02 kgAnthfloridalma Alberto DPM Work Phone: [facility] HospitalDkrtmgwlsk58-19-6749 13:14-0500Body afebvn485.8 cmDavion Pritchard MD Work Phone: [facility] HospitalGuqlkqzxsf25-93-5880 13:14-0500Body mass index (BMI) [Ratio]38.6 kg/m2Davion Pritchard MD Work Phone: [facility] HospitalMxerwugksk18-77-9749 13:14-0500Body temperature 97.11 [degF]Davion Pritchard MD Work Phone: [facility] HospitalWjjdcmklnx75-30-0996 13:14-0500Body qoaqts646.02 kgDavion Pritchard MD Work Phone: [facility] HospitalXgcqletztw01-95-6430 13:14-0500Diastolic blood mm[Hg]Davion Pritchard MD Work Phone: [facility] HospitalPopfkouzaj04-19-4988 13:14-0500Heart rate81 /min Davion Pritchard MD Work Phone: [facility] HospitalQvrqaqdbli93-88-4990 13:14-0500Respiratory rate18 /minDavion Pritchard MD Work Phone: [facility] HospitalFoesedudwl93-02-8963 13:14-3525DyW7% (BldA) [Mass fraction]99 %Davion Pritchard MD Work Phone: [facility] HospitalOikfnsnafq13-70-7540 13:14-0500Systolic blood jptqonis68 mm[Hg]Davion Pritchard MD Work Phone: [facility] HospitalLmwxwlzstq46-09-1940 09:08-0500Body grqell223.8 cmKayla ALVES Work Phone: [facility]12-10-2024 09:08-0500Body mass index (BMI) [Ratio]38.71 kg/r3WjzpsysKayla Henson APRN-FARMWORKER Work Phone: [facility]12-10-2024 09:08-0500Body qtxaka800.38 kgKayla Henson APRN-MAXI Work Phone: [facility]12-10-2024 09:08-0500Diastolic blood fbybszoz72 mm[Hg]Kayla ALVES Work Phone: [facility]12-10-2024 09:08-0500Heart rate 88 /minKayla ALVES Work Phone: [facility]12-10-2024 09:08-0500Systolic blood kkhilpme497 mm[Hg]Kayla ALVES Work Phone: [facility]12-02-2024 11:26-0500Body zbkvgy366.[address] [place], [place] 3887312-02-2024 11:26-0500Body mass index (BMI) [Ratio]38.17 kg/j9Mgdan[address]12-02-2024 11:26-0500Body xuajcn322.[address] [place], [place] 3887311-15-2024 09:57-0500Body height 177.[address] [place], [place] [address]011-15-2024 09:57-0500Body mass index (BMI) [Ratio]38.17 kg/t8Xywtr[address]11-15-2024 09:57-0500Body zvedeu860.[address] [place], [place] [address]010-29-2024 11:36-0400Body height 177.8 cmDavion Pritchard MD Work Phone: [facility] HospitalFqjsufuaef83-56-8733 11:36-0400Body mass index (BMI) [Ratio]38.31 kg/m2Davion Pritchard MD Work Phone: [facility] HospitalTrgheslhvp00-17-6642 11:36-0400Body temperature 97.11 [degF]Davion Pritchard MD Work Phone: [facility] HospitalUjebxrlnoo87-42-2893 11:36-0400Body .11 kgDavion Pritchard MD Work Phone: [facility] HospitalOxjlrrcjjy71-45-7045 11:36-0400Diastolic blood lbmpture98 mm[Hg]Davion Pritchard MD Work Phone: [facility] HospitalQcnehwzzvt23-24-4392 11:36-0400Heart rate94 /min Davion Pritchard MD Work Phone: [facility] HospitalVgslmfnooe30-98-7819 11:36-0400Respiratory rate20 /minDavion Pritchard MD Work Phone: [facility] HospitalGkxcmrpsan52-24-2173 11:36-3243WrO7% (BldA) [Mass fraction]98 %Davion Pritchard MD Work Phone: [facility] HospitalIchawjotri83-16-8153 11:36-0400Systolic blood akbwroui680 mm[Hg]Davion Pritchard MD Work Phone: [facility] HospitalCfglcunwdq10-08-4815 10:06-0400Body ndeorv209.8 cmKayla Henson [employer] Work Phone: [facility]10-29-2024 10:06-0400Body mass index (BMI) [Ratio]38.17 kg/j2CqlhbeqKayla Henson [employer] Work Phone: [facility]10-29-2024 10:06-0400Body .66 kgKayla Henson [employer] Work Phone: [facility]10-29-2024 10:06-0400Diastolic blood jbelttnv27 mm[Hg]Kayla Henson [employer] Work Phone: [facility]10-29-2024 10:06-0400Systolic blood iwfdsqps201 mm[Hg]Kayla Henson [employer] Work Phone: [facility]10-19-2024 04:59-0400Body ccddtorccin92.01 [degF]Charlene Smyth MD Work Phone: [facility]10-19-2024 04:59-0400Diastolic blood ekxbasku86 mm[Hg]Charlene Smyth MD Work Phone: 1(449)305-[facility]10-19-2024 04:59-0400Heart rate 77 /minCharlene Smyth MD Work Phone: [phone])755-[facility]10-19-2024 04:59-0400 Respiratory rate15 /Janice Smyth MD Work Phone: [facility]10-19-2024 04:59-9835ZjH6% (BldA) [Mass fraction]90 %Charlene Smyth MD Work Phone: [facility]10-19-2024 04:59-0400Systolic blood tvqlcjpa677 mm[Hg]Charlene Smyth MD Work Phone: [facility]10-19-2024 00:00-0400Body mass index (BMI) [Ratio]40.65 kg/j8FpmimCharlene Smyth MD Work Phone: [facility]10-19-2024 00:00-0400Body jsmjha868.5 kgCharlene Smyth MD Work Phone: [facility]10-15-2024 19:44-0400Body ezsoxugeqjk57.5 [degF]Ermelinda Pretty MD Work Phone: [facility]10-15-2024 19:44-0400Diastolic blood rsxhepnp94 mm[Hg]Ermelinda Pretty MD Work Phone: [facility]10-15-2024 19:44-0400Heart rate 82 /Parrish Pretty MD Work Phone: 1(861)[address]10-15-2024 19:44-0400 Respiratory rate16 /Parrish Pretty MD Work Phone: 1(655)[address] [place], [place] 6565410-15-2024 19:44-4335AlQ0% (BldA) [Mass fraction]98 %Ermelinda Pretty MD Work Phone: 1(570)[address] [place], [place] 6565410-15-2024 19:44-0400Systolic blood mm[Hg]Ermelinda Pretty MD Work Phone: 1([phone])[address] [place], [place] 6565410-15-2024 04:50-0400Body mass index (BMI) [Ratio]43.48 kg/d7DzjkfaErmelinda Pretty MD Work Phone: 1(470)[address]10-15-2024 04:50-0400Body .44 kgErmelinda Pretty MD Work Phone: 1(347)[address] [place], [place] 6565410-11-2024 16:00-0400Body .8 cmErmelinda Pretty MD Work Phone: 1(371)[address] [place], [place] 6565410-11-2024 13:13-0400Body ijpnlssttzg59.6 [degF]Ermelinda Pretty MD Work Phone: 1(262)[address]09-25-2024 09:55-0400Body sygawk166.8 cmDavion Pritchard MD Work Phone: [facility] HospitalHfqxypbprf84-68-8876 09:55-0400Body mass index (BMI) [Ratio]41.47 kg/m2Davion Pritchard MD Work Phone: [facility] HospitalDqchbhowix90-67-1470 09:55-0400Body temperature 97.5 [degF]Davion Pritchard MD Work Phone: [facility] HospitalEnvxcyovni05-50-4950 09:55-0400Body etbuhz461.09 kgDavion Pritchard MD Work Phone: [facility] HospitalVimeqboatu59-70-1630 09:55-0400Diastolic blood dmuqbihd01 mm[Hg]Davion Pritchard MD Work Phone: [facility] HospitalUjbpjesplc76-32-9707 09:55-0400Heart ibke678 /min Davion Pritchard MD Work Phone: [facility] HospitalXjzlderque70-55-9381 09:55-0400Respiratory rate22 /minDavion Pritchard MD Work Phone: [facility] HospitalBipdgknjdd44-04-2671 09:55-2313SfS5% (BldA) [Mass fraction]97 %Davion Pritchard MD Work Phone: [facility] HospitalNfclevcikd34-52-8134 09:55-0400Systolic blood aywolvoy505 mm[Hg]Davion Pritchard MD Work Phone: [facility] HospitalVlxkpaqnqe69-78-7050 14:09-0400Body ezllyz086.8 cmDavion Pritchard MD Work Phone: [facility] HospitalGtdkrfnuio59-63-4657 14:09-0400Body mass index (BMI) [Ratio]43.05 kg/m2Davion Pritchard MD Work Phone: [facility] HospitalZlwsipkrpt17-63-5907 14:09-0400Body temperature 97.11 [degF]Davion Pritchard MD Work Phone: [facility] HospitalEqgkmcnmqp89-11-3438 14:09-0400Body .08 kgDavion Pritchard MD Work Phone: [facility] HospitalFkbnugwgxa05-22-7642 14:09-0400Diastolic blood buhxzcyk97 mm[Hg]Davion Pritchard MD Work Phone: [facility] HospitalMaurqtxiau93-52-4316 14:09-0400Heart rate88 /min Davion Pritchard MD Work Phone: [facility] HospitalUibcyswrhj28-16-6971 14:09-0400Respiratory rate18 /minDavion Pritchard MD Work Phone: [facility] HospitalAvkpvabbki50-21-3453 14:09-1329AdH4% (BldA) [Mass fraction]99 %Davion Pritchard MD Work Phone: [facility] Iufmzuzmtf80-62-2833 14:090400Systolic blood ylfdahqr563 mm[Hg]Davion Pritchard MD Work Phone: [facility] Encounters Encounter DateEncounter TypeCare ProviderFacilityStart: 12-01-2024 End: 46-63-1593rudobnucqsWptn Naderer MD Work Phone: [phone]-[facility] NeurologyStart: 12-01-2024 End: 20-54-8084Rqyvxya encounter procedureChristopher [facility] Work Phone: Start: 11-24-2024 End: 45-38-1717Xyunwk Dandre Hinson ADVERTISING REP Work Phone: [facility]Start: 11-24-2024 End: 13-99-0756Jdirpf Dandre Hinsno ADVERTISING REP Work Phone: [facility]opaedicsStart: 11-24-2024 End: 79-95-7528Jgyjan outpatient new 30 minutesNéstor Hinson ADVERTISING REP Work Phone: [facility] OrthopaedicsComment on above:Numbness and tingling in right handStart: 11-24-2024 End: 33-97-0950myqnnkxvuxDILPW T OLSENNot AvailableStart: 11-10-2024 End: 75-41-0063mesxgabptnUlpd Naderer MD Work Phone: [facility] Work Phone: Start: 11-10-2024 End: 11-41-2989Wtrsjmw encounter procedureDavion Pritchard MD-[facility] Work Phone: Start: 09-26-2024 End: 23-40-7909AlaagqKkom Naderer MD Work Phone: [facility] CWM FMComment on above:AnxietyStart: 09-20-2024 End: 79-28-3779KwkzpmIhyy Naderer MD Work Phone: [facility] FMComment on above:Herpes zoster without complication; AnxietyStart: 09-15-2024 End: 12-17-2364VwlrkpTbwz Naderer MD Work Phone: [facility] FMComment on above:Herpes zoster without complicationStart: 09-14-2024 End: 36-40-1671Xlgzsh Gage Pritchard MD Work Phone: [facility] FMStart: 09-14-2024 End: 66-19-5548Myalse Gage Pritchard MD Work Phone: [facility] FMStart: 09-14-2024 End: 23-63-0961Wgytle outpatient visit 15 minutesDavion Pritchard MD Work Phone: [facility] FMComment on above:Herpes zoster without complication (Primary Dx); Class 2 severe obesity due to excess calories with serious comorbidity and body mass index (BMI) of35.0 to 35.9 in adult ([facility]); Gastro-esophageal reflux disease without esophagitisStart: 09-14-2024 End: 62-02-0180yrbzcwbqqqXOBW NADERERNot AvailableStart: 25-46-7693gsfanjlpcksara IGLESIASFacility: BellevueStart: 83-09-7160wafuubntjpPrvsetx NILL Facility: BrandonueStart: 07-18-2024 End: 50-23-7839Wccial Gage Pritchard MD Work Phone: [facility] FMStart: 07-18-2024 End: 78-55-4674Becjbq Gage Pritchard MD Work Phone: [facility] FMStart: 07-18-2024 End: 84-21-6624Ccpnjp outpatient visit 25 minutesDavion Pritchard MD Work Phone: [facility] FMComment on above:Type 2 diabetes mellitus with hyperglycemia, without long-term current use of insulin (CMS/HCC) (Primary Dx); Major depressive disorder, recurrent episode, mild (HCC) (CMS/HCC); Generalized anxiety disorder (CMS/HCC); Migraine without aura and without status migrainosus, not intractable (CMS/HCC); Irritable bowel syndrome with diarrhea; Gastroesophageal reflux disease without esophagitis; Colon cancer screening; Degeneration of intervertebral disc of lumbar region without discogenic back pain or lower extremity painStart: 07-18-2024 End: 24-75-0565wcpgtvvafrBMRB NADERERNot AvailableStart: 06-01-2024 End: 47-59-8244AjjcwnHcsg Naderer MD Work Phone: [facility] CWM FMComment on above:AnxietyStart: 05-26-2024 End: 02-53-2101yzzhcspltfQOHK NADERELima Memorial Hospitaltart: 04-27-2024 End: 41-38-9726Zxhebnboe Ijeoma Henson [facility] Work Phone: [facility] SurgeryStart: 04-14-2024 End: 19-64-1859Pemniu Gage Pritchard MD Work Phone: [facility] CW FMStart: 04-14-2024 End: 68-12-2135Syiipm Gage Pritchard MD Work Phone: [facility] CW FMStart: 04-14-2024 End: 16-01-2570Awbizk outpatient visit 25 minutesDavion Pritchard MD Work Phone: [facility] CWM FMComment on above:Type 2 diabetes mellitus with hyperglycemia, without long-term current use of insulin (CMS/HCC) (Primary Dx); Major depressive disorder, recurrent episode, mild (HCC) (CMS/HCC); Generalized anxiety disorder (CMS/HCC); Migraine without aura and without status migrainosus, not intractable (CMS/HCC); Seasonal allergic rhinitis due to pollen; Class 1 obesity due to excess calories with serious comorbidity and body mass index (BMI) of 34.0 to 34.9 in adult; Gastroesophageal reflux disease without esophagitis; Obstructive sleep apnea; Stage 3a chronic kidney disease (CKD) (CMS/HCC); Screening PSA (prostate specific antigen); Encounter for long-term (current) use of medications; History of colon polypsStart: 04-14-2024 End: 47-47-1355gpytecjsobDCUP NADERERNot AvailableStart: 03-28-2024 End: 46-49-8852PbcdzrHitg Naderer MD Work Phone: [facility] CWM FMComment on above:AnxietyStart: 03-22-2024 End: 37-39-4311ttnywjpycxLEUFHXN [facility] Hospitaltart: 02-16-2024 End: 90-80-6454obutycukloGFAWVBJ S RUSHERNot AvailableStart: 02-16-2024 End: 04-17-3808Tpxdre outpatient visit 15 minutesAnthfloridalma Alberto DPM Work Phone: [facility] PODIATRYComment on above:Diabetic polyneuropathy associated with type 2 diabetes mellitus ([facility]) (Primary Dx); Onychodystrophy; Onychomycosis; Neuritis; Raynaud's phenomenon without gangreneStart: 02-16-2024 End: 47-46-5204Bnjwdh Kala Alberto DPM Work Phone: [facility] PODIATRYStart: 02-16-2024 End: 39-23-0407Ayzrxe Kala Alberto DPM Work Phone: [facility] PODIATRYStart: 02-01-2024 End: 05-17-2540GpqoxiSbdq Naderer MD Work Phone: [facility] CWM FMComment on above:Obstructive sleep apnea Start: 01-26-2024 End: 07-02-1651WuovvpFgru Naderer MD Work Phone: [facility] CWM FMComment on above:Anxiety; Migraine without aura and without status migrainosus, not intractable (CMS/HCC) Start: 01-21-2024 End: 80-23-8942Nennpkanahi Pritchard MD Work Phone: [facility] CWM FMStart: 01-21-2024 End: 29-27-0230Syyhkf flowsheetDavion Pritchard MD Work Phone: [facility] CWM FMStart: 01-21-2024 End: 87-74-2933eagaqfneefQRFH NADERERNot AvailableStart: 01-21-2024 End: 69-25-4653Jjzizlr encounter procedureDavion Pritchard MD Work Phone: [facility] Work Phone: Start: 01-21-2024 End: 86-47-5579Baunka follow up visit related to original Depeak Pritchard MD Work Phone: [facility] CWM FMComment on above:Medicare annual wellness visit, subsequent (Primary Dx); Type 2 diabetes mellitus with hyperglycemia, without long-term current use of insulin ([facility])Start: 01-19-2024 End: 32-20-9835Zwdyro follow up visit related to original rommelThe [facility] Delaney Henson [employer] Work Phone: [facility] General SurgeryComment on above: Status post laparoscopic cholecystectomy (Primary Dx)Start: 01-19-2024 End: 04-76-1890ukdxpldpyaADEVZDZ Delaney [facility] Start: 01-11-2024 End: 35-21-7881Simnsojcmg and management of inpatientSIERRA VISTA REGIONAL HEALTH CENTERC SIMPSON GENERAL HOSPITALERERProMedJ.W. [facility] Hospital HospitalStart: 01-06-2024 End: 17-82-1246Echncfcss to [facility] Phone Call Provider 4 [facility] HospitalwayStart: 01-04-2024 End: 93-10-5787RckucsOqmj Naderer MD Work Phone: [facility] CWM FMComment on above:Migraine without aura and without status migrainosus, not intractable (CMS/HCC)Start: 12-29-2023 End: 04-01-3987Ughyuqhphn and management of inpatientViera Hospitalca [facility] HospitalStart: 12-29-2023 End: 80-77-7440Cqhyggnumw and management of inpatientYASEEN S ALASTALProMedica Curtis HospitalStart: 12-25-2023 End: 28-71-8827Wuxfynnpxy and management of inpatientMARC MEDINARProMedica Freeport HospitalStart: 12-22-2023 End: 71-51-0320Hhorpdmpz to [facility] campusMet Pat Phone Call Provider 3 [facility] On [facility] Hospitaltart: 12-08-2023 End: 55-39-5493Cwqzqp Gage Pritchard MD Work Phone: [facility] CWM FMStart: 12-08-2023 End: 15-61-1300Bxedry Gage Pritchard MD Work Phone: [facility] FMStart: 12-08-2023 End: 69-13-5897Ebnjksfbnxkj care manage srvc 14 day dischargeDavion Pritchard MD Work Phone: [facility] CWM FMComment on above:Duodenal fistula (Primary Dx); Bile leak; Type 2 diabetes mellitus with hyperglycemia, without long-term current use of insulin ([facility])Start: 12-08-2023 End: 60-85-2589ofcajtkfleNJWP NADERERNot AvailableStart: 12-08-2023 End: 90-19-6776Xlhxdj follow up visit related to original Lawrence Henson [employer] Work Phone: [facility] Physicians General SurgeryComment on above: Status post laparoscopic cholecystectomy (Primary Dx)Start: 12-08-2023 End: 30-03-5885pwsqorltmgGJCAPVG A [facility]LLFair[facility] Start: 12-04-2023 End: 17-56-9110pfgajcphlhYXJLL JAMILProMedica [place]eport HospitalStart: 11-30-2023 End: 17-52-9033XbieejKhmi Naderer MD Work Phone: [facility] CWM FMComment on above:AnxietyStart: 11-29-2023 End: 10-90-4911krhmugzsvoRPOMKC U GILLProMedica Curtis HospitalStart: 11-25-2023 Encounter for preprocedural cardiovascular examinationTAHIR MERLINEAvita Health System [facility]cyrus Hospital HospitalStart: 11-25-2023 End: 14-00-1940Hnovrdkits and management of inpatientTAHIR [facility] HospitalComment on above:Bile leak (Primary Dx); Mobility impaired; Memory loss; WeaknessStart: 11-21-2023 End: 12-66-9187Yvlfkycrpi and management of inpatientKYELVIRA FAYRiverside Methodist Hospital HospitalStart: 11-20-2023 End: 40-99-8982Ulefrmceft and management of inpatientMENNATEDUARD MARSHALLTelluride Regional Medical Center HospitalStart: 11-20-2023 End: 60-54-4458Nvpvlmttnl and management of inpatientDileep Mtz DO Work Phone: [facility] Comment on above:Fistula of gallbladder (Primary Dx); Duodenal fistula; Hyperglycemia; Class 3 severe obesity due to excess calories with body mass index (BMI) of 40.0 to 44.9 in adult, unspecified whether serious comorbidity present ([facility]) Start: 11-18-2023 End: 36-60-5798rqsxpyavjvZBKRHCA [facility] Healthcare Northwest HospitalStart: 11-09-2023 End: 39-31-5790rykqazlobmXCEXHCA [facility] Healthcare [facility] HospitalStart: 11-04-2023 End: 42-82-5942Ecxbjq flowsAria Pritchard MD Work Phone: [facility] CW FMStart: 11-04-2023 End: 13-74-0135Guydwe flowsAria Pritchard MD Work Phone: [facility] CW FMStart: 11-04-2023 End: 78-10-4276Yhobrg outpatient visit 25 minutesDavion Pritchard MD Work Phone: [facility] CW FMComment on above:Generalized abdominal pain (Primary Dx); Early satietyStart: 10-19-2023 End: 30-35-6720Tlkuzu outpatient visit 25 minutesDavion Pritchard MD Work Phone: [facility] CWM FMComment on above:Type 2 diabetes mellitus with hyperglycemia, without long-term current use of insulin ([facility]) (Primary Dx); Migraine without aura and without status migrainosus, not intractable ([facility]); Major depressive disorder, recurrent episode, mild (HCC) ([facility]); Generalized anxiety disorder ([facility]); Chronic bilateral low back pain without sciatica; Gastroesophageal reflux disease without esophagitis; Immunodeficiency due to conditions classified elsewhere ([facility])Start: 10-19-2023 End: 08-73-4203Mxjrux flowsheetDavion Pritchard MD Work Phone: [facility] CWM FMStart: 10-19-2023 End: 15-52-3285Lrkehs flowsAria Pritchard MD Work Phone: [facility] CWM FMStart: 10-04-2023 End: 87-58-9196Nletsshcl department patient visitVan Wert County Hospitaltart: 09-28-2023 End: 76-36-2092AvbhnhSmhh Naderer MD Work Phone: [facility] CWM FMComment on above:AnxietyStart: 07-30-2023 End: 14-98-9324iorvsowllcDRKECleveland Clinic Union Hospitaltart: 04-22-2023 Telephone encounterLeyla Armenta Physicians NeurologyComment on above: NEW PATIENT REFERRALStart: 08-19-2021 End: 31-62-0835qfpklchdtkEL DAVION A NADERERFacility:S5Jgllc: 07-31-2021 End: 49-11-0342gwixlppmxiCX DAVION A NADERERFacility:V5Audvm: 04-25-2021 End: 17-13-3238bexkdtbwipJY DAVION A NADERERFacility:M0Iyypt: 01-24-2021 End: 21-48-2066jczoolcijnSC DAVION A NADERERFacility:K1Xkwcv: 08-29-2020 End: 77-30-7543vhfzbwlfguGA DAVION A NADERERFacility:S5Orlul: 01-12-2017 End: 61-30-3714SdeoehrqanEOSEXTY PHYSICIANFacility:[facility] FACILITYtart: 01-05-2017 End: 88-17-1286MfaagsirliOUMHDWO PHYSICIANFacility:[facility] Procedures DateProcedureProcedure DetailPerforming ClinicianStart: 18-89-0687Buxm bld gluc mntr dev cleared fda spec home useTatiana Smyth MD Work Phone: Start: 22-67-1993Hpzmc metabolic panel calcium total Bryan Alfaro MD Work Phone: Start: 45-17-2258Uoaozbr function panelBryan Alfaro MD Work Phone: Start: 90-63-6416Tvnv bld gluc mntr dev cleared fda spec home useTatiana Smyth MD Work Phone: Start: 99-96-8255Uuzi bld gluc mntr dev cleared fda spec home useTatiana Smyth MD Work Phone: Start: 47-93-0949Fani bld gluc mntr dev cleared fda spec home useTatiana Smyth MD Work Phone: Start: 77-52-9523WPMZV/CPAP/AUTOPAPOfelicity Alfaro MD Work Phone: Start: 02-74-7435Avkyp metabolic panel calcium total Bryan Alfaro MD Work Phone: Start: 34-41-1169Crofzoo function panelBryan Alfaro MD Work Phone: Start: 63-64-1951CDEXM/CPAP/AUTOPAPTatiana Smyth MD Work Phone: Start: 48-33-4259Jjaq bld gluc mntr dev cleared fda spec home useTatiana Smyth MD Work Phone: Start: 03-59-1676DALRL/CPAP/AUTOPAPOfelicity Alfaro MD Work Phone: Start: 03-64-6042Lxuo bld gluc mntr dev cleared fda spec home useTatiana Smyth MD Work Phone: Start: 14-44-7402Giegaxqwia cathj biliary ductal system rs&iRafael Patricia MD Work Phone: Start: 11-26-2023 End: 69-15-3397Ystb stent placement biliary/pancreatic ductRafael Patricia MD Work Phone: Start: 11-26-2023 End: 06-61-6007Iqth bld gluc mntr dev cleared fda spec home useTatiana Smyth MD Work Phone: Start: 11-26-2023 End: 30-53-8133VHTGNMPCQ ERCPMeconnie Castillo DO Work Phone: Start: 69-46-6786DXUEOquiwm S Alastal MD Work Phone: Start: 91-04-0567Kqyih metabolic panel calcium total Bryan Alfaro MD Work Phone: Start: 64-04-9324Swqavtm function panelOmar Dominic DANG Work Phone: Start: 52-37-6145Jnlz bld gluc mntr dev cleared fda spec home useTatiana Smyth MD Work Phone: Start: 58-58-4518Uoch bld gluc mntr dev cleared fda spec home useTatiana Smyth MD Work Phone: Start: 00-15-9469Pnrwxdmlc totalIgnacia Castillo DO Work Phone: Start: 78-44-1133Mxhs bld gluc mntr dev cleared fda spec home useCharlene Smyth MD Work Phone: Start: 53-17-3059PAKEOIGO ABORHOmriri Alfaro MD Work Phone: Start: 12-73-3295Gqcsrcxw screenCharlene Smyth MD Work Phone: Start: 32-19-5687Hlgs bld gluc mntr dev cleared fda spec home useTatiana Smyth MD Work Phone: Start: 72-02-7671VGAJP/CPAP/AUTOPAPOfelicity Alfaro MD Work Phone: Start: 40-32-4273Pjxhc metabolic panel calcium total Bryan Alfaro MD Work Phone: Start: 11-25-2023 End: 73-62-2344Sdehhxw function panelOmar Dominic DANG Work Phone: Start: 63-03-7809JPNMPHVH ABORHOmriri Alfaro MD Work Phone: Start: 83-73-8666Ynpk bld gluc mntr dev cleared fda spec home useCharlene Smyth MD Work Phone: Start: 05-78-8796Sjxypgvwsg exam chest single viewClaricer Dominic DANG Work Phone: Start: 20-79-9773Dmz routine ecg w/least 12 lds trcg only w/o i&rOmriri Alfaro MD Work Phone: Start: 32-02-7385CHLAN/CPAP/AUTOPAPOfelicity Alfaro MD Work Phone: Start: 72-91-7581Ymel bld gluc mntr dev cleared fda spec home useJagrutmoise Block MD Work Phone: Start: 68-15-6045Qowz bld gluc mntr dev cleared fda spec home useJagrutmoise Block MD Work Phone: Start: 72-55-9201Oswj bld gluc mntr dev cleared fda spec home useJagrutmoise Block MD Work Phone: Start: 72-60-1756Syef bld gluc mntr dev cleared fda spec home useJagrutmoise Block MD Work Phone: Start: 55-77-3305Zhgjozaqkfxvw metabolic panelKakathy Pretty MD Work Phone: Start: 97-85-0702Pxby bld gluc mntr dev cleared fda spec home useJagrutmoise Block MD Work Phone: Start: 59-81-9163Osbx bld gluc mntr dev cleared fda spec home useCaesargrutmoise Block MD Work Phone: Start: 71-13-2888GPFLWCWU CULTURE INCLUDES GRAM STAIN Anahy Cooper MD Work Phone: Start: 11-23-2023 End: 00-84-6889PFPHWZB CHOLECYSTECTOMYMenjim Cooper MD Work Phone: Start: 34-05-9928Fqsr bld gluc mntr dev cleared fda spec home useMacutmoise Block MD Work Phone: Start: 88-18-9681Lqvzxhqkjfpcc metabolic panelKyle D Krotzer [employer] Work Phone: Start: 59-47-8838Msoy bld gluc mntr dev cleared fda spec home useJaalexandriautmoise Block MD Work Phone: Start: 31-73-3802Zizf bld gluc mntr dev cleared fda spec home useJose Maria Block MD Work Phone: Start: 62-41-3217Osoc bld gluc mntr dev cleared fda spec home useJose Maria Block MD Work Phone: Start: 14-00-0563EMIOX/CPAP/AUTOPAPOlivia Annetta Nolasco [employer] Work Phone: Start: 75-48-6272Hkabyibekauxe metabolic panelKyle D Krotzer [employer] Work Phone: Start: 84-91-5135Bknz bld gluc mntr dev cleared fda spec home useMacutmoise Block MD Work Phone: Start: 73-17-9300Rjht bld gluc mntr dev cleared fda spec home useJose Maria Block MD Work Phone: Start: 37-38-7959Saitnacxvd exam chest single viewKyle D Krotzer [employer] Work Phone: Start: 01-65-5231Hehk bld gluc mntr dev cleared fda spec home useCaesargrutmoise Block MD Work Phone: Start: 64-43-3843Nfiqjrnpdxmhm metabolic panelKyle D Krotzer [employer] Work Phone: Start: 88-46-2456Gazz bld gluc mntr dev cleared fda spec home useJose Maria Block MD Work Phone: Start: 26-31-7687Wqut bld gluc mntr dev cleared fda spec home useJagrutmoise Block MD Work Phone: Start: 23-16-4327XL ED CRITICAL CAREMarmanuel L Sherman DO Work Phone: Start: 05-93-3656Kfci bld gluc mntr dev cleared fda spec home useJose Maria Block MD Work Phone: Start: 97-68-0786Ytzrnrqmay exam abdomen 1 view Anahy Cooper MD Work Phone: Start: 19-04-3987Zqjxh gases any combination ph pco2 po2 co2 yeb9Svazgd L Eliel DO Work Phone: Start: 12-81-3174Ilqrrszsfrzhc metabolic panelMarsha L Eliel DO Work Phone: Start: 26-73-2140Vro routine ecg w/least 12 lds trcg only w/o i&rMarsha L Eliel DO Work Phone: Start: 68-33-3670Zljkhzdzldmt [Mass/volume] in Urine by Test Summer Henson [employer] Work Phone: Start: 48-81-9364XHS screeningDR DAVION NADERERComment on above:Performed By: #### AST, LIPID, TSH, BMP, PSAD, ALT ####[facility] [id number] [id number] KarenStart: 76-94-8582NauajqhnfqqWpyn Francheska DANG Work Phone: History of cholecystectomyStatus post laparoscopic cholecystectomyJelouie Henson [employer] Work Phone: History of cholecystectomyStatus post laparoscopic cholecystectomyJessica Delaney MoralesHenson [employer] Work Phone: Plan of Treatment DateCare ActivityDetailAuthorStart: 98-79-3397Urcmlbkvl for malignant neoplasm of colonNOMS HealthcareStart: 92-65-7280Wkloavfa screeningDiabetes: Retinopathy ScreeningNOMS HealthcareStart: 23-92-9555Aifhl screening for proteinDiabetes: Urine Protein ScreeningNOMS HealthcareStart: 12-12-2025Medicare Annual Wellness (AWV)Medicare Annual Wellness (AWV)[facility] HealthcareStart: 36-44-8728Evfrl BMI ScreeningAdult BMI ScreeningProPomerene Hospitalca Health SystemStart: 56-51-0485Ucakwab ScreeningTobacco ScreeningMercy Health Anderson Hospitalca Health SystemStart: 57-21-3309Cqypebi ScreeningTobacco ScreeningProPomerene Hospitalca Health SystemStart: 30-33-1306Bnhww BMI ScreeningAdult BMI ScreeningProL.V. Stabler Memorial Hospital Health SystemStart: 71-94-7973Mxwujdn ScreeningTobacco ScreeningMercy Health Anderson Hospitalca Health SystemStart: 11-08-0088Vyhkh BMI ScreeningAdult BMI ScreeningProPomerene Hospitalca Health SystemStart: 03-42-1763Orrnkco ScreeningTobacco ScreeningMercy Health St. Charles Hospital Health SystemStart: 80-97-3144Hblhgnrvud A1c measurementDiabetes: Hemoglobin M4YGTCC HealthcareStart: 11-24-2024 End: 86-07-4223ZMG AND NERVE CONDUCTION STUDYEMG AND NERVE CONDUCTION STUDY Neurology Routine Numbness and tingling in right hand Expected: 11/24/2024 (Approximate), Expires: 11/24/2025[facility] Work Phone: Comment on above:Expected: 11/24/2024 (Approximate), Expires: 11/24/2025Start: 11-24-2024 End: 85-72-8293Wbwdpev encounter nxhmtetxf68/16/2025 2:00 PM EDT Office Visit [facility] [address] [place] [phone] Néstor Hinson, ADVERTISING REP [address] [place] [address] [facility] OrthopaedicsComment on above:Arrived Start: 46-31-5087Frwmcnk referralSamaritan Hospital Work Phone: Start: 10-27-2024 End: 11-27-2644Zhgbpjv encounter hjvzjpnir68/18/2025 1:45 PM EDT Office Visit [facility] [address] [place] [address] Davion Pritchard MD [address] [place] [address] [facility] FMStart: 10-20-2024 End: 67-42-4620Cthcxvj encounter crnefzwba07/11/2025 1:15 PM EDT Office Visit [facility] [address] [place] [address] Davion Pritchard MD [address] [place] [address] [facility] FMStart: 70-20-8387Fapnmngxm [facility] HospitalStart: 09-14-2024 End: 14-95-1861Ztuufqf encounter /06/2025 11:15 AM EDT Office Visit [facility] [address] [place] [address] Davion Pritchard MD [address] [place] [address] ArrivedNOWI CWM FMComment on above:ArrivedStart: 07-18-2024 End: 24-21-2717Bwzqzct encounter procedureNOMS CWM FMComment on above:Arrived Start: 06-15-2024 End: 56-58-9071Onwqwkk encounter ahalvmsap35/07/2025 1:30 PM EDT Procedure Visit [facility] [address] [place] [phone] Prasanna Alberto, DPM [address] [place] [address] [facility] PODIATRYStart: 49-76-1446Rhqabwfqhi A1c measurementDiabetes: Hemoglobin W2USHNX HealthcareStart: 04-14-2024 End: 81-69-5626Vesto metabolic 1998 panel - Serum or PlasmaBasic metabolic panel Lab Routine Stage 3a chronic kidney disease (CKD) ([facility]) Expected: 04/15/19 25 (Approximate), Expires: 04/14/2025[facility] HealthcareComment on above:Expected: 04/14/2024 (Approximate), Expires: 04/14/2025Start: 04-14-2024 End: 59-29-2709TGH W Auto Differential panel - BloodCBC and differential Lab Routine Encounter for long-term (current) use of medications Expected: 07/2024 (Approximate), Expires: 04/14/2025[facility] HealthcareComment on above: Expected: 04/14/2024 (Approximate), Expires: 04/14/2025Start: 04-14-2024 End: 68-72-9056Hcqptfufan A1c/Hemoglobin.total in BloodHemoglobin A1c Lab Routine Type 2 diabetes mellitus with hyperglycemia, without long-term current use of insulin ([facility]) Expected: 04/14/2024 (Approximate), Expires: 04/14/2025 [facility] HealthcareComment on above:Expected: 04/14/2024 (Approximate), Expires: 04/14/2025Start: 04-14-2024 End: 02-44-2873Zhdxaww function 2000 panel - Serum or PlasmaHepatic function panel Lab Routine Encounter for long-term (current) use of medications Expected: 04/14/2024 (Approximate), Expires: 04/14/2025[facility] HealthcareComment on above: Expected: 04/14/2024 (Approximate), Expires: 04/14/2025Start: 04-14-2024 End: 62-33-3570Xbwjy 1996 panel - Serum or PlasmaLipid panel Lab Routine Type 2 diabetes mellitus with hyperglycemia, without long-term current use of insulin ([facility]) Expected: 04/14/2024 (Approximate), Expires: 04/14/2025[facility] Healthcare Comment on above:Expected: 04/14/2024 (Approximate), Expires: 04/14/2025Start: 04-14-2024 End: 54-72-3593Isqxfddyfsov/Creatinine panel in random UrineMicroalbumin / creatinine, urine ratio Lab Routine Type 2 diabetes mellitus with hyperglycemia, without long-term current use of insulin ([facility]) Expected: 04/14/2024 (Approximate), Expires: 04/14/2025[facility] Healthcare Work Phone: Comment on above:Expected: 04/14/2024 (Approximate), Expires: 04/14/2025Start: 04-14-2024 End: 21-71-3299Tctcuwco specific Ag [Mass/volume] in Serum or PlasmaPSA Lab Routine Screening PSA (prostate specific antigen) Expected: 04/14/2024 (Approximate), Expires: 04/14/2025[facility] HealthcareComment on above:Expected: 04/14/2024 (Approximate), Expires: 04/14/2025Start: 04-14-2024 End: 85-39-1977Glgkqhqafmk [Units/volume] in Serum or PlasmaTSH Lab Routine Class 1 obesity due to excess calories with serious comorbidity and body mass index(BMI) of 34.0 to 34.9 in adult Expected: 04/14/2024 (Approximate), Expires: 04/14/2025[facility] HealthcareComment on above:Expected: 04/14/2024 (Approximate), Expires: 04/14/2025Start: 04-14-2024 End: 74-26-1251Yegedyi encounter procedureNOMS CWM FMComment on above:Arrived Start: 97-15-2130Xitvw screening for proteinDiabetes: Urine Protein Screening [facility] HealthcareStart: 78-62-1006Mtpzjscwft A1c measurementDiabetes: Hemoglobin M2KCMFY HealthcareStart: 02-16-2024 End: 54-59-0607Gsyqpid encounter procedureNOMS PODIATRYComment on above: ArrivedStart: 01-21-2024 End: 15-81-8192Pedyjvw encounter hntoqfuey41/12/2024 1:00 PM EST [facility] [address] [place] [address] Davion Pritchard MD [address] [place] [address] [facility] CW FMStart: 01-19-2024 End: 66-58-1680Kyogpgt encounter saspbdbgl49/10/2024 9:30 AM EST Office Visit [facility] [address] [place], [place] Kayla Henson, [facility] [address] [place] [address] [facility] General SurgeryStart: 01-13-2024 End: 40-17-4002Iqtayobae to same day surgery pleuoa2301/13/2024 11:00 AM EST - 01/13/2024 12:15 PM EST Surgery [facility] [address] [place] [address] Rafael Patricia MD [address] [facility] [address] ENDOSCOPIC RETROGRADE CHOLANGIO-PANCREATOGRAPHY W/ STENT REMOVAL [63817 (CPT )] [facility] - EndoscopyComment on above:ENDOSCOPIC RETROGRADE CHOLANGIO-PANCREATOGRAPHY W/ STENT REMOVAL [42052 (CPT )]Start: 01-13-2024 End: 80-39-7757Bcfl dx collection specimen brushing/washingENDOSCOPIC RETROGRADE CHOLANGIO-PANCREATOGRAPHY BILE LEAK 01/13/2024 11:00 AM ESTTOLED ENDOSCOPY Start: 81-11-2373Mdzjqvhrif hospital visit by bgngmpeyj70/04/2024 11:00 AM EST Hospital Encounter [facility] [address] [place] [address] Rafael Patricia MD [address] [place] [address] [facility]oscopyStart: 12-29-2023 End: 40-50-6986Qrednpklb to same day surgery fpzhjy8412/29/2023 11:00 AM EST - 12/29/2023 12:30 PM EST Surgery [facility] [address] [place] [address] Rafael Patricia MD [address] [address] ENDOSCOPIC RETROGRADE CHOLANGIO-PANCREATOGRAPHY W/ STENT REMOVAL [95408 (CPT )] [facility] EndoscopyComment on above:ENDOSCOPIC RETROGRADE CHOLANGIO-PANCREATOGRAPHY W/ STENT REMOVAL [20534 (CPT )]Start: 12-29-2023 End: 65-18-9641Xivx dx collection specimen brushing/washingENDOSCOPIC RETROGRADE CHOLANGIO-PANCREATOGRAPHY BILE LEAK 12/29/2023 11:00 AM ESTTOLED ENDOSCOPY Start: 31-64-2400Tabwqgfqfz hospital visit by vmfhytwzd63/19/2024 11:00 AM EST Hospital Encounter [facility] [address] [place] [address] Rafael Patricia MD [address] [place] [address] [facility]oscopyStart: 12-22-2023 End: 15-25-8929Lvxgzsjuy to ounabdthgtqhn38/12/2024 8:30 AM EST Support Visit [facility] [address] [address]RtiMpgszr [facility] Start: 12-08-2023 End: 39-95-4548Jwfgbiu encounter hjdsfyips97/29/2024 11:30 AM EDT Office Visit [facility] [address] [place] [address] Davion Pritchard MD [address] [place] [address] ArrivedNOHARMON [facility] FMComment on above:ArrivedStart: 12-03-2023 End: 40-53-6459Qviqufu encounter pbscigfna75/24/2024 11:30 AM EDT Office Visit [facility] [address] [place] [address] Davion Pritchard MD [address] [place] [address] [facility] FMStart: 11-04-2023 End: 13-82-8699Hapwg metabolic 1998 panel - Serum or PlasmaBasic metabolic panel Lab Routine Generalized abdominal pain Expected: 11/04/2023 (Approximate), Exp ires: 11/03/2024NOWI HealthcareComment on above:Expected: 11/04/2023 (Approximate), Expires: 11/03/2024Start: 11-04-2023 End: 84-10-1628RHO W Auto Differential panel - BloodCBC and differential Lab Routine Generalized abdominal pain Expected: 11/04/2023 (Approximate), Expires: 11/03/2024NOWI HealthcareComment on above:Expected: 11/04/2023 (Approximate), Expires: 11/03/2024Start: 11-04-2023 End: 45-73-0842OY Abdomen and Pelvis WO and W contrast IVCT abdomen pelvis w and wo IV contrast Imaging Routine Generalized abdominal pain Expected: 11/04/2023, Expires: 11/03/2024[facility] Work Phone: Comment on above:Expected: 11/04/2023, Expires: 11/03/2024Start: 11-04-2023 End: 31-88-0375Rahzgxw function 2000 panel - Serum or PlasmaHepatic function panel Lab Routine Generalized abdominal pain Expected: 11/04/2023 (Approximate), Expires: 11/03/2024NOWI HealthcareComment on above:Expected: 11/04/2023 (Approximate), Expires: 11/03/2024Start: 11-04-2023 End: 05-95-4956Gnsbxif encounter owmwqfqaw65/25/2024 9:30 AM EDT Office Visit [facility] [address] [place] [address] Davion Pritchard MD [address] [place] [address] ArrivedNOHARMON MEM[facility] FMComment on above:ArrivedStart: 98-13-1261Dnaeojuplw A1c measurementDiabetes: Hemoglobin G8WHDTT HealthcareStart: 10-19-2023 End: 95-42-0790Flpmokg encounter procedureNOOU MEDICAL CENTER – OKLAHOMA CITYM FMComment on above:Arrived Start: 45-92-0833Opummfkju vaccinationMOUNTAIN WEST MEDICAL CENTER HealthcareStart: 05-06-2023 End: 29-16-4875Gugymwc encounter procedureKettering Health [facility] - UltrasoundStart: 71-08-9176Svxix BMI ScreeningAdult BMI ScreeningProMercy Hospital SystemStart: 84-29-6836Rjblzso ScreeningTobacco ScreeningProMercy Hospital SystemStart: 20-41-3393Yyadx screening for proteinUrine MicroalbuminMemorial Health System [facility] SystemStart: 50-60-4747Gpjcvpyhj vaccinationInfluenza VaccineProMercy Hospital SystemStart: 91-31-8613Cqotcfqteultgk of varicella zoster vaccineZoster (Shingles) Vaccine (1 of 2)[facility] SystemStart: 46-58-2567Jobxpbxtc for malignant neoplasm of colonColonoscopyMemorial Health System [facility] SystemStart: 1981 DTaP,Tdap and Td Vaccines (1 - Tdap)DTaP,Tdap and Td Vaccines (1 - Tdap) [facility] SystemStart: 72-83-1670Hwiqt BMI Follow Up PlanAdult BMI Follow Up PlanMemorial Health System [facility] Hospital SystemStart: 11-78-5475Weyrdrlg foot examinationDiabetic Foot ExamProMercy Hospital SystemStart: 22-99-2353Iceatyjune ScreeningDepression ScreeningProMercy Hospital SystemStart: 93-05-6804Akqsyfqx screeningDiabetic Ophthalmology ExamProMercy Hospital SystemStart: 1960Medicare Annual Wellness (AWV)Medicare Annual Wellness (AWV)[facility] HealthcareStart: 1960 Screening for malignant neoplasm of colonNOMS HealthcareBacteria identified in Aspirate by Aerobe cultureAspirate culture includes gram stain Microbiology Routine 11/23/2023 3:45 PM [facility] HospitalBapsychiatric metabolic 2000 panel - Serum or PlasmaBapsychiatric Metabolic Panel Lab Routine Lab max of 3 days, Daily, for lab use only until discontinued starting 11/25/2023, 3 completedMercy Health Anderson HospitalStolen Couch Games [facility] HospitalComment on above:Lab max of 3 days, Daily, for lab use only until discontinued starting 11/25/2023, 3 completedBedside Glucose *Place/Obtain serum glucose if >500(>600 MRH) per glucometer.Bedside Glucose *Place/Obtain serum glucose if >500(>600 MRH) per glucometer. Point of Care Testing Routine 4X Daily (AC and at bedtime) until discontinued starting 11/20/2023, 16 completed [employer] Work Phone: Comment on above:4X Daily (AC and at bedtime) until discontinued starting 11/20/2023, 16 completedBedside Glucose *Place/Obtain serum glucose if >500(>600 MRH) per glucometer.Bedside Glucose *Place/Obtain serum glucose if >500(>600 MRH) per glucometer. Point of Care Testing Routine 4X Daily (AC and at bedtime) until discontinued starting 11/26/2023, 3 completed [facility] Work Phone: Comment on above:4X Daily (AC and at bedtime) until discontinued starting 11/26/2023, 3 completedBiPAP/CPAP/AutoPAP BiPAP/CPAP/AutoPAP Respiratory Care Routine Every 12 hour check until discontinued starting 11/20/2023, 1 [facility] Work Phone: Comment on above:Every 12 hour check until discontinued starting 11/20/2023, 1 completedBiPAP/CPAP/AutoPAPPro[facility]ica Work Phone: comment on above:At bedtime until discontinued starting 11/25/2023, 1 completedEvery 12 hour check until discontinued starting 11/25/2023, 4 completedCBC panel - Blood by Automated countCBC without diff Lab Routine Lab max of 3 days, Daily, for lab use only until discontinued starting 11/25/2023, 4 completedProctor HospitalClub Scene Network SystemComment on above:Lab max of 3 days, Daily, for lab use only until discontinued starting 11/25/2023, 4 completedLiver panelLiver panel Lab Routine Lab max of 3 days, Daily, for lab use only until discontinued starting 11/25/2023, 4 completedProctor HospitalClub Scene Network SystemComment on above:Lab max of 3 days, Daily, for lab use only until discontinued starting 11/25/2023, 4 completedMagnesium [Mass/volume] in Serum or PlasmaMagnesium Lab Routine Lab max of 3 days, Daily, for lab use only until discontinued starting 11/25/2023, 4 completedProctor HospitalClub Scene Network SystemComment on above:Lab max of 3 days, Daily, for lab use only until discontinued starting 11/25/2023, 4 completedOxygen Therapy - Maintain SpO2: 90%; *JEWELRY DRILL OPERATOR Guidelines for O2: Yes; Document: \[email or web address]\epic\EPIC_Reference\Orders\Respiratory Care Guidelines\CPG Oxygen 2022.pdfOxygen Therapy - Maintain SpO2: 90%; *JEWELRY DRILL OPERATOR Guidelines for O2: Yes; Document: \[email or web address]\epi c\EPIC_Reference\Orders\Respiratory Care Guidelines\CPG Oxygen 2022.pdf Respiratory Care Routine AsNeeded until discontinued starting 11/20/2023 [facility] HospitalLaszlo Systems SystemComment on above:As Needed until discontinued starting 11/20/2023Oxygen Therapy - Maintain SpO2: 90%; *JEWELRY DRILL OPERATOR Guidelines for O2: Yes; Document: \[email or web address]\epic\EPIC_Reference\Orders\Respiratory Care Guidelines\CPG Oxygen 2022.pdfOxygen Therapy - Maintain SpO2: 90%; *JEWELRY DRILL OPERATOR Guidelines for O2: Yes; Document: \[email or web address]\epi c\EPIC_Reference\Orders\Respiratory Care Guidelines\CPG Oxygen 2022.pdf Respiratory Care Routine AsNeeded until discontinued starting 11/25/2023 [facility] SystemComment on above:As Needed until discontinued starting 11/25/2023[facility] Work Phone: Phosphate [Mass/volume] in Serum or PlasmaPhosphorus Lab Routine Lab max of 3 days, Daily, for lab use only until discontinued starting 11/25/2023, 4 completedProMercy Hospital SystemComment on above:Lab max of 3 days, Daily, for lab use only until discontinued starting 11/25/2023, 4 completed End: 85-71-8163Jgojm oximetry, spot On current oxygen flowPulse oximetry, spot On current oxygen flow Respiratory Care Routine Once for 1 Occurrences starting 11/25/2023 until 11/25/2023[facility] SystemComment on above:Once for 1 Occurrences starting 11/25/2023 until 11/25/2023Surgical PathologySurgical Pathology Pathology and Cytology Routine Release Upon Ordering for 1 Occurrences starting 11/23/2023[facility] Work Phone: Comment on above:Release Upon Ordering for 1 Occurrences starting 11/23/2023[facility] Payers DatePayer CategoryPayerPolicy ID2017Medicaid [id number] 2013Medicare [id number] ..840.1.945935.3.57[id number] 2.16.840.1.425908.3.57[id number] 2.16.840.1.147860.3.579.2.0[id number] 2.16.840.1.998690.3.579.2.49487-64-9314Otnveht8755060 2.16.840.1.918629.3.579.2.94331-46-9038Xzmehxl58638057 2.16.840.1.767277.3.579.2.217891-73-4015Jyzqhav24993833 2..840.1.551120.3.579.2.942101-15-2400Ltvlchc39174216 2..840.1.758432.3.579.2.686543-59-7247Grssyzw63733764 2..840.1.465020.3.579.2.430806-81-8440Ycinqxx86619968 2..840.1.573004.3.579.2.533810-18-0931Hhwofke62537656 2..840.1.462898.3.579.2.451049-76-8752Tsjgzpa06170837 2..840.1.170169.3.579.2.077874-13-8094Rlcjyml85555631 2.16.840.1.276813.3.579.2.860960-05-9691Nbflmmq12901881 2.16.840.1.885275.3.579.2.521823-54-5671Tbfcnqo13452114 2.16.840.1.584043.3.579.2.779278-98-5847Hqqwfjq451566849 2.16.840.1.139098.3.579.2.[id number] 2.16.840.1.033395.3.579.2.343120-54-8323Ayxeotq03908371 2.16.840.1.708111.3.579.2.641240-67-9174Prsjnbt07675687 2..840.1.288435.3.579.2.508043-65-2768Zqxrjic47124156 2..840.1.249801.3.579.2.333570-65-3712Kwblefb65546215 2..840.1.475733.3.579.2.716182-57-9653Wkgvnlg30943890 2..840.1.534071.3.579.2.885222-46-3484Fmnmezm45174495 2..840.1.236045.3.579.2.063234-04-5540Kbgugui82387522 2..840.1.175402.3.579.2.914242-82-7250Eueawum34108173 2..840.1.917783.3.579.2.587837-91-1062Rcazvjk15699582 2..840.1.666553.3.579.2.63467-59-5395Bxnskgl86865920 2.16.840.1.549942.3.579.2.114138-09-8740Cxgcfma52059227 2.16.840.1.436020.3.579.2.906209-71-2472Ixgphos52367548 2.16.840.1.753729.3.579.2.939735-12-3418Qzkvtfc5294547 2.16.840.1.122933.3.579.2.873529-91-8560Kpotqvk1357975 2.16.840.1.375438.3.579.2.379606-92-3158Gkladqk0978095 2..0.1.086189.3.579.2.007840-86-8412Ftellhc9461641 2..840.1.176468.3.579.2.1259 [id number] 1958Medicare [id number] Social History DateTypeDetailFacilityStart: 04-09-2023 End: 65-62-9221Qgshokl smoking status NHISNever smoked tobaccoMOUNTAIN WEST MEDICAL CENTER Healthcare Start: 04-09-2023 End: 01-10-9003Gswppnu use and exposureSmokeless tobacco non-userMemorial Health System [facility] SystemStart: 11-04-2023 End: 19-64-3578Ngeteyc of Social functionNOWI HealthcareStart: 11-04-2023 End: 26-98-0572Kktihtl use panelMOUNTAIN WEST MEDICAL CENTER HealthcareStart: 49-20-3597Phx assigned at birthNot on fileMemorial Health System [facility] Hospital SystemStart: 12-05-2021 End: 61-44-6504Rfabhur intakeEx-drinker (finding)[facility] SystemStart: 01-95-1055WlskplxcnPkpeibwGtmSpueoc Health SystemHas the Vestorly, gas, oil, or water company threatened to shut off services in your home in past 12MoNo [facility] SystemHow often to you have a drink containing alcohol?Never [facility] SystemStart: 88-64-6668KtyJlcs (finding)[facility] Start: 82-90-0536Bpl Assigned At [facility] NEGATED: Highlighted rowStart: NINFHistory of tobacco usePassive smokerMemorial Health System [facility] Medical Equipment Procedure CodeEquipment CodeEquipment Original TextEquipment IdentifierDates1 each by In Vitro route [id number]: each [id number]: each by In Vitro route [id number]: 07-20-2023 End: each [id number]: 07-20-2023 End: 25-50-3084Vrpnx Moncho 8mm 8.5fr 80mm 194cm .035in Flly Cvr Cth Gw Dlv - [id number] FDAStart: each by In Vitro route [id number]: 06-30-2024 Goals DatePatient GoalDesired Activity/StatePersonal health goalComment on above: Evaluation of progress towards goal: Patient plans to return home with support of and home health care.Personal health goalComment on above: Evaluation of progress towards goal: Patient plans to discharge home with Home Health Care and withassistance from family. Functional Status DateAssessmentResultFaNYU Langone Tisch Hospital System Clinical Notes 04-22-2023 to 11-24-2024 Note Date & RbxgCmaxOqvuqxrk13-36-7637 History of Present illness Narrative* Néstor Hinson, ADVERTISING REP - 11/24/2024 2:00 PM EDT Images from the original note were not included. NAME: Boo Capps : 1960 HISTORY OF PRESENT ILLNESS: NEW PT Boo Capps is an 64 y.o. @ male. (NEW [...] Use: Not At Risk (11/25/2023) Received from [employer] Q1: How often do you have a drink containing alcohol?: Never Q2: How many drinks containing alcohol do you have on a typical day when you are drinking?: Patientdoes not drink Q3: How often do you have six or more drinks on one occasion?: Never PHYSICAL EXAM: Right Hand Exam Tenderness The patient is experiencing tenderness in the palmar area. Muscle Strength Sock Folder: 4/5 Tests Tinel's sign (median nerve): positive Other Erythema: absent Right hand sensation: numbness in thumb, index, middle and ring finger. Pulse: present IMAGING: Procedures Orders Placed This Encounter Procedures EMG AND NERVE CONDUCTION STUDY EMG RT UE with Dr Buenrostro [place] location Please contact to schedule, Nadia [phone] Standing Status: Future Expected Date: 11/24/2024 Expiration [...] Past Medical History: Diagnosis Date CAD in pamunkey artery Chronic seasonal allergic rhinitis due to pollen Duodenitis EDMOND (generalized anxiety disorder) Irritable bowel syndrome with diarrhea MDD (major depressive disorder), recurrent episode, mild Memory change Migraine without aura and without status migrainosus, not intractable Mild intermittent asthma, uncomplicated (HCC) Obstructive sleep apnea Pain, joint, knee, left Stage 3a chronic kidney disease (CKD) ([facility]) Type 2 diabetes mellitus with hyperglycemia, without long-term current use of insulin ([facility]) Ventricular ectopics [2] Past Surgical History: Procedure Laterality Date CHOLECYSTECTOMY 11/23/2023 [3] No Known Allergies documented in this encounterEllett Memorial HospitalTlytchvdxt51-94-6785 Evaluation note* Diagnosis Onset Date Resolution Status Admit Date Class 2 severe obesity due to excess flo ories with serious comorbidity and acuteOctober 2024 10:56amDiarrhea due to drugacuteOctober 2024 10:56am Gastroesophageal reflux disease without esophagitisacuteOctober 2024 10:56amGeneralized anxiety disorderacuteOctober 2024 10:56amMajor depressive disorder, recurrent episode, mildacuteOctober 2024 10:56am Migraine without aura or status migrainosusacuteOctober 2024 10:56am Obstructive sleep apneaacuteOctober 2024 10:56amRight carpal tunnel syndromeacuteOctober 2024 10:56amType 2 diabetes mellitus with hyperglycemia, without long-term current useacuteOctober 2024 10:56am PolyneuropathyacuteOct2024 2:03pmRight carpal tunnel syndromeacute October 2024 2:03pm [facility] Work Phone: 1(294) 946-460308-06-2025 History of Present illness Narrative* Davion Pritchard MD - 09/14/2024 2:41 PM EDTAssociated Problem(s): Class 2 severe obesity due to excess calories with serious comorbidity and body mass index (BMI) of 35.0 to 35.9 in adult ([facility]) Weight loss indicated. * Davion Pritchard MD - 09/14/2024 2:41 PM EDTAssociated Problem(s): Herpes zoster without complication Rash consistent with shingles and treat with valtrex. Use prednisone to help clear and lyrica for pain. * Davion Pritchard MD - 09/14/2024 11:15 AM EDT Images from the original note were not included. Subjective Patient ID: Boo Capps is a 64 y.o. male who presents for Follow-up and Blister (Chest and right arm/hand). C/o rash on right arm for 5-7 days. Developed red bumps down right arm and spread to hand. Initially round, red bumps then raised and fluid filled blisters. Now some lesions look scabbed and others are red or have fluid. Rash spread between fingers and on palm. Rash itchy but very painful and c/o burning over rash. No rash on other parts of body. Never had in past. Not using OTC. Review of Systems Constitutional: Negative for fatigue. Respiratory: Negative for cough, shortness of breath and wheezing. Cardiovascular: Negative for chest pain and palpitations. Gastrointestinal: Negative for abdominal pain, diarrhea, nausea and vomiting. Genitourinary: Negative for dysuria. Objective Physical Exam Constitutional: General: He is not in acute distress. Appearance: Normal appearance. HENT: Head: Normocephalic. Right Ear: Tympanic membrane and ear canal normal. Left Ear: Tympanic membrane and ear canal normal. Eyes: Extraocular Movements: Extraocular movements intact. Pupils: Pupils are equal, round, and reactive to light. Cardiovascular: Rate and Rhythm: Normal rate and regular rhythm. Heart sounds: No murmur heard. No friction rub. No gallop. Pulmonary: Breath sounds: Normal breath sounds. No wheezing, rhonchi or rales. Abdominal: General: Bowel sounds are normal. There is no distension. Palpations: Abdomen is soft. Tenderness: There is no abdominal tenderness. There is no guarding or rebound. Musculoskeletal: Left lower leg: No edema. Neurological: Mental Status: He is alert. Assessment/Plan Problem List Items Addressed This Visit Herpes zoster without complication - Primary Rash consistent with shingles and treat with valtrex. Use prednisone to help clear and lyrica for pain. Relevant Medications valACYclovir (Valtrex) 1 g tablet predniSONE (Deltasone) 50 MG tablet pregabalin (Lyrica) 75 MG capsule documented in this encounterEllett Memorial [id number] History of Present illness Narrative* Davion Pritchard MD - 07/18/2024 2:05 PM EDTAssociated Problem(s): Degeneration of intervertebral disc of lumbar region without discogenic back pain or lower extremity pain Problems getting up from sitting and script for raised toilet seat to patient. * Davion Pritchard MD - 07/18/2024 2:05 PM EDTAssociated Problem(s): Type 2 diabetes mellitus with hyperglycemia, without long-term current use of insulin (CMS/HCC) Not checking BS but last A1C 6.2. Stick to ADA diet and limit carbs. * Davion Pritchard MD - 07/18/2024 2:05 PM EDTAssociated Problem(s): Migraine without aura or status migrainosus (CMS/HCC) RICHMOND stable and use imitrex PRN. * Davion Pritchard MD - 07/18/2024 2:05 PM EDTAssociated Problem(s): Major depressive disorder, recurrent episode, mild (HCC) (CMS/HCC) Symptoms worse and increase prozac. Warned will take 2-3 weeks to notice improvement in mood. * Davion Pritchard MD - 07/18/2024 2:04 PM EDTAssociated Problem(s): Irritable bowel syndrome with diarrhea Occasional symptoms and use bentyl PRN. * Davion Pritchard MD - 07/18/2024 2:04 PM EDTAssociated Problem(s): Generalized anxiety disorder (CMS/HCC) Symptoms worse and increase prozac. Warned will take 2-3 weeks to notice improvement in mood. Use klonopin PRN. * Davion Pritchard MD - 07/18/2024 2:04 PM EDTAssociated Problem(s): Gastroesophageal reflux disease without esophagitis Symptoms controlled with medication and continue. * Davion Pritchard MD - 07/18/2024 1:15 PM EDT Images from the original note were not included. Subjective Patient ID: Boo Capps is a 64 y.o. male who presents for Follow-up (3m ), GI Problem (Upset stomach, ), and Depression. Follow up DM, depression, anxiety, migraines, GERD, and MAYO. Not checking BS but last A1C 6.2. Tries to eat well and stick to ADA diet. Denies signs of elevated BS such as polyuria, polyphagia or polydipsia. Migraines stable. RICHMOND 1-2 times a month. Throbbing pain in entire head associated with photophobia, phonophobia and nausea. Using medication PRN and helps when needed. Depression recently worse. Down, sad, and no motivation. Found out sister and recently had to move. Anxiety stable. Notas stressed out or overwhelmed. Not as nervous or worry as much. Not as yip or irritable. Using klonopin PRN and helps. GERD controlled with omeprazole. Denies epigastric pain or burning and not waking up with symptoms. MAYO controlled with BiPAP. Using machine nightly for entire time asleep, typically 6-8 hours. Sleeping well and not waking up as much during night. Rested in am and not as tiredduring day. Requests raised toilet seat. History of OA in lumbar region and very difficult to get up from sitting. Review of Systems Constitutional: Negative for fatigue. Respiratory: Negative for cough, shortness of breath and wheezing. Cardiovascular: Negative for chest pain and palpitations. Gastrointestinal: Negative for abdominal pain, diarrhea, nausea and vomiting. Genitourinary: Negative for dysuria. Objective Physical Exam Constitutional: General: He is not in acute distress. Appearance: Normal appearance. HENT: Head: Normocephalic. Right Ear: Tympanic membrane and ear canal normal. Left Ear: Tympanic membrane and ear canal normal. Eyes: Extraocular Movements: Extraocular movements intact. Pupils: Pupils are equal, round, and reactive to light. Cardiovascular: Rate and Rhythm: Normal rate and regular rhythm. Heart sounds: No murmur heard. No friction rub. No gallop. Pulmonary: Breath sounds: Normal breath sounds. No wheezing, rhonchi or rales. Abdominal: General: Bowel sounds are normal. There is no distension. Palpations: Abdomen is soft. Tenderness: There is no abdominal tenderness. There is no guarding or rebound. Musculoskeletal: Left lower leg: No edema. Neurological: Mental Status: He is alert. Assessment/Plan Problem List Items Addressed This Visit Generalized anxiety disorder (CMS/HCC) Symptoms worse and increase prozac. Warned will take 2-3 weeks to notice improvement in mood. Use klonopin PRN. Irritable bowel syndrome with diarrhea Occasional symptoms and use bentyl PRN. Relevant Medications dicyclomine (Bentyl) 20 MG tablet Major depressive disorder, recurrent episode, mild (HCC) (CMS/HCC) Symptoms worse and increase prozac. Warned will take 2-3 weeks to notice improvement in mood. Relevant Medications FLUoxetine (PROzac) 20 MG capsule Migraine without aura or status migrainosus (CMS/HCC) RICHMOND stable and use imitrex PRN. Type 2 diabetes mellitus with hyperglycemia, without long-term current use of insulin (CMS/HCC) - Primary Not checking BS but last A1C 6.2. Stick to ADA diet and limit carbs. Degeneration of intervertebral disc of lumbar region without discogenic back pain or lower extremity pain Problems getting up from sitting and script for raised toilet seat to patient. Gastroesophageal reflux disease without esophagitis Symptoms controlled with medication and continue. Relevant Medications pantoprazole (Protonix) 40 MG EC tablet Other Visit Diagnoses Colon cancer screening Relevant Orders Ambulatory referral to General Surgery documented in this encounterEllett Memorial [id number] Miscellaneous Notes* Telephone Encounter - Brooklyn Winston - 04/27/2024 9:51 AM EDT Called Mehrdad regarding the history of colon polyps referral that our office received from Dr Pritchard, left message on voicemail to call the office back to reschedule his appointment. Also called on: 04/18 PATIENT'S CALLED TO CANCEL THEY ARE MOVING, WILL CALL BACK ONCE SETTLED IN TO RESCHEDULE TR 3/7 SCHEDULED APPT ON 04/22/2024 [facility] Tele[facility] encounter Note* Telephone Encounter - Brooklyn Winston - 04/27/2024 9:51 AM EDT Called Mehrdad regarding the history of colon polyps referral that our office received from Dr Pritchard, left message on voicemail to call the office back to reschedule his appointment. Also called on: 04/18 PATIENT'S CALLED TO CANCEL THEY ARE MOVING, WILL CALL BACK ONCE SETTLED IN TO RESCHEDULE TR 3/7 SCHEDULED APPT ON 04/22/2024 [facility]03[facility] History of Present illness Narrative* Davion Pritchard MD - 04/14/2024 10:42 AM ESTAssociated Problem(s): Type 2 diabetes mellitus with hyperglycemia, without long-term current use of insulin ([facility]) Reports BS improved and due for A1C. Stick to ADA diet and limit carbs. * Davion Pritchard MD - 04/14/2024 10:42 AM ESTAssociated Problem(s): Seasonal allergic rhinitis due to pollen Start flonase * Davion Pritchard MD - 04/14/2024 10:42 AM ESTAssociated Problem(s): Obstructive sleep apnea Symptoms controlled with BiPAP and continue nightly. The patient is benefiting from PAP therapy. * Davion Pritchard MD - 04/14/2024 10:42 AM ESTAssociated Problem(s): Migraine without aura or status migrainosus (CMS/HCC) RICHMOND stable and use imitrex PRN. * Davion Pritchard MD - 04/14/2024 10:42 AM ESTAssociated Problem(s): Major depressive disorder, recurrent episode, mild (HCC) (CMS/HCC) Mood controlled with medication and continue. * Davion Pritchard MD - 04/14/2024 10:42 AM ESTAssociated Problem(s): Generalized anxiety disorder (CMS/HCC) Mood controlled with medication and continue. Use klonopin PRN. * Davion Pritchard MD - 04/14/2024 10:41 AM ESTAssociated Problem(s): Gastroesophageal reflux disease without esophagitis Symptoms controlled with omeprazole and continue. * Davion Pritchard MD - 04/14/2024 10:41 AM ESTAssociated Problem(s): Class 1 obesity due to excess calories with serious comorbidity and body mass index (BMI) of 34.0 to 34.9 in adult Weight down 23 pounds from last visit. * Davion Pritchard MD - 04/14/2024 10:15 AM EST Images from the original note were not included. Subjective Patient ID: Boo Capps is a 64 y.o. male who presents for Follow-up. Follow up DM, depression, anxiety, migraines, GERD, and MAYO. Reports BS stable and 100-200. Tries to eat well and stick to ADA diet. Denies signs of elevated BS such as polyuria, polyphagia or polydipsia. Due for A1C. Migraines improved. RICHMOND 1-2 times a month. Throbbing pain in entire head associated with photophobia, phonophobia and nausea. Using medication PRN and helps when needed. Depression controlled with medication. Not down or sad and feels happier. Anxiety stable. Not as stressed out oroverwhelmed. Not as nervous or worry as much. Not as yip or irritable. Using klonopin PRN and helps. GERD controlled with omeprazole. Denies epigastric pain or burning and not waking up with symptoms. MAYO controlled with BiPAP. Using machine nightly for entire time asleep, typically 6-8 hours. Sleeping well and not waking up as much during night. Rested in am and not as tired during day. C/o ears plugged for several weeks. Increased congestion and rhinorrhea. RICHMOND and sinus pressure in foreheadand cheeks along with postnasal drip. Not on OTC. Review of Systems Constitutional: Negative for fatigue. Respiratory: Negative for cough, shortness of breath and wheezing. Cardiovascular: Negative for chest pain and palpitations. Gastrointestinal: Negative for abdominal pain, diarrhea, nausea and vomiting. Genitourinary: Negative for dysuria. Objective Physical Exam Constitutional: General: He is not in acute distress. Appearance: Normal appearance. HENT: Head: Normocephalic. Right Ear: Tympanic membrane and ear canal normal. Left Ear: Tympanic membrane and ear canal normal. Eyes: Extraocular Movements: Extraocular movements intact. Pupils: Pupils are equal, round, and reactive to light. Cardiovascular: Rate and Rhythm: Normal rate and regular rhythm. Heart sounds: No murmur heard. No friction rub. No gallop. Pulmonary: Breath sounds: Normal breath sounds. No wheezing, rhonchi or rales. Abdominal: General: Bowel sounds are normal. There is no distension. Palpations: Abdomen is soft. Tenderness: There is no abdominal tenderness. There is no guarding or rebound. Musculoskeletal: Left lower leg: No edema. Neurological: Mental Status: He is alert. Assessment/Plan Problem List Items Addressed This Visit Generalized anxiety disorder (CMS/HCC) Mood controlled with medication and continue. Use klonopin PRN. Major depressive disorder, recurrent episode, mild (HCC) (CMS/HCC) Mood controlled with medication and continue. Migraine without aura or status migrainosus (CMS/HCC) RICHMOND stable and use imitrex PRN. Obstructive sleep apnea Symptoms controlled with BiPAP and continue nightly. The patient is benefiting from PAP therapy. Stage 3a chronic kidney disease (CKD) (CMS/HCC) Relevant Orders Basic metabolic panel Type 2 diabetes mellitus with hyperglycemia, without long-term current use of insulin ([facility]) - Primary Reports BS improved and due for A1C. Stick to ADA diet and limit carbs. Relevant Orders Microalbumin / creatinine, urine ratio Hemoglobin A1c Lipid panel Class 1 obesity due to excess calories with serious comorbidity and body mass index (BMI) of 34.0 to 34.9 in adult Weight down 23 pounds from last visit. Relevant Orders TSH Gastroesophageal reflux disease without esophagitis Symptoms controlled with omeprazole and continue. Encounter for long-term (current) use of medications Relevant Orders CBC and differential Hepatic function panel Screening PSA (prostate specific antigen) Relevant Orders PSA Seasonal allergic rhinitis due to pollen Start flonase Relevant Medications fluticasone (Flonase) 50 MCG/ACT nasal spray documented in this encounterEllett Memorial [id number] NoteCardiovascular Medicine [facility] SUBJECTIVE Chief Complaint Patient presents with Edema Boo Capps is a 64 y.o. male here for follow-up. HPI PMHx: PVCs, morbid obesity, LE edema He c/o increase swelling to the bottom of his feet for the past week along with pain on the bottom of his feet. 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 Blood sugar has been running 100-200s. His weight is down ~60# since last seen. Denies c/o CP, dyspnea, orthopnea, PND, LE edema, dizziness/LH, palpitations, syncope. Patient Active Problem List Diagnosis Calf pain Cough Dyspnea on exertion Edema of lower extremity Morbid obesity ([facility]) Obstructive sleep apnea syndrome Ventricular premature complex Ventricular premature beats Arthralgia of multiple sites Bilateral leg edema Bile leak CAD in pamunkey artery Chronic bilateral low back pain without sciatica Duodenal fistula Early satiety Fistula of gallbladder Gastroesophageal reflux disease without esophagitis Generalized abdominal pain Generalized anxiety disorder Hyperglycemia Irritable bowel syndrome with diarrhea Major depressive disorder, recurrent episode, mild ([facility]) Medicare annual wellness visit, subsequent Memory loss Migraine without aura or status migrainosus Nonalcoholic fatty liver Stage 3a chronic kidney disease (CKD) ([facility]) Type 2 diabetes mellitus with hyperglycemia, without long-term current use of insulin ([facility]) Past Medical History: Diagnosis Date Abnormal ECG Hyperlipidemia PVC (premature ventricular contraction) Sleep apnea No family history on file. Social History Tobacco Use Smoking status: Never Smokeless tobacco: Never No Known Allergies Review of Systems Constitutional: Positive for weight loss. Negative for chills, decreased appetite, fever, malaise/fatigue and weight gain. Cardiovascular: Negative for chest pain, dyspnea on exertion, irregular heartbeat, leg swelling, near-syncope, orthopnea, palpitations, paroxysmal nocturnal dyspnea and syncope. Hematologic/Lymphatic: Negative for bleeding problem. Does not bruise/bleed easily. OBJECTIVE Visit Vitals BP 94/62 (BP Location: Right arm, Patient Position: Sitting) Pulse 80 Ht 1.829 m (6') Wt 121 kg (267 lb) SpO2 98% BMI 36.21 kg/m??? Smoking Status Never BSA 2.48 m??? Medications: Current Outpatient Medications: albuterol (Ventolin HFA) 90 mcg/actuation inhaler, Inhale 2 puffs every 4 (four) hours if needed., Disp: , Rfl: clonazePAM (KlonoPIN) 2 mg tablet, Take 2 mg by mouth if needed in the morning, at noon, and at bedtime for seizures., Disp: , Rfl: dicyclomine (Bentyl) 20 mg tablet, Take 1 tablet by mouth if needed in the morning, at noon, in the evening, and at bedtime., Disp: , Rfl: FLUoxetine (PROzac) 20 mg tablet, Take 1 tablet every day by oral route for 30 days., Disp: , Rfl: glipiZIDE (Glucotrol) 10 mg tablet, TAKE ONE (1) TABLET BY MOUTH TWICE DAILY, Disp: , Rfl: Jardiance 25 mg, Take 25 mg by mouth in the morning., Disp: , Rfl: metFORMIN (Glucophage) 500 mg tablet, Take 1 tablet by mouth in the morning and at bedtime., Disp: , Rfl: omeprazole (PriLOSEC) [address] capsule, Take 1 capsule by mouth in the morning., Disp: , Rfl: Ozempic 2 mg/dose (8 mg/3 mL) pen injector, INJECT 2 MG SUBCUTANEOUSLY EVERY WEEK, Disp: , Rfl: pioglitazone (Actos) 30 mg tablet, Take 30 mg by mouth in the morning., Disp: , Rfl: rifAXIMin (Xifaxan) 550 mg tablet, Take 1 tablet by mouth in the morning, at noon, and at bedtime., Disp: , Rfl: SUMAtriptan (Imitrex) 50 mg tablet, TAKE 1 TABLET BY MOUTH AT ONSET OF HEADACHE, MAY REPEAT DOSE IN 2 HOURS, Disp: , Rfl: topiramate (Topamax) 25 mg tablet, Take 25 mg by mouth in the morning and at bedtime., Disp: , Rfl: atorvastatin (Lipitor) 40 mg tablet, Take 1 tablet (40 mg) by mouth at bedtime., Disp: 90 tablet, Rfl: 3 clonazePAM (KlonoPIN) 0.5 mg tablet, Take 1 tablet twice a day by oral route as needed for 30 days., Disp: , Rfl: furosemide (Lasix) 20 mg tablet, Take 1 tablet (20 mg) by mouth in the morning. Take an additional tablet daily if needed for increased leg swelling., Disp: 120 tablet, Rfl: 3 Physical Exam Constitutional: Appearance: Normal appearance. HENT: Head: Normocephalic and atraumatic. Right Ear: External ear normal. Left Ear: External ear normal. Eyes: Extraocular Movements: Extraocular movements intact. Pupils: Pupils are equal, round, and reactive to light. Neck: Vascular: No carotid bruit. Cardiovascular: Rate and Rhythm: Normal rate and regular rhythm. Pulses: Normal pulses. Heart sounds: Normal heart sounds. Pulmonary: Effort: Pulmonary effort is normal. Breath sounds: Normal breath sounds. Abdominal: General: Bowel sounds are normal. Palpations: Abdomen is soft. Musculoskeletal: General: Normal range of motion. Cervical back: Neck supple (more content not included)...[facility]02-11-2025 NotePatient here for 1 year follow up PVC's, LE edema, and hyperlipidemia. Had echo and routine labs w/ lipid panel last Feb 2023, after last apt. He's down 61# from visit in Feb 2023. Had cholecystectomy in Nov 2023. Denies chest pain, SOB, and palpitations. C/o swelling on the bottom of his feet. Review of Systems Constitutional: Positive for weight loss (61# since 02/26/2023). All other systems reviewed and are negative.[facility] 02-16-2024 History of Present illness Narrative* Prasanna Alberto, DPM - 02/16/2024 2:30 PM EST Images from the original note were not included. Subjective Patient ID: Boo Capps is a 64 y.o. male who presents for Nail care (Boo Capps 64yo.Patient presents for nail care. BS 100-[address] Pritchard 01/21/2024 SS 12). HPI This is an established patient who presents to clinic for diabetic foot check. He is here with his today. Patient relates a lot of numbness, tingling sensations in his feet and states that he gets a lot of spasms in his toes with color changes. Seems to be worse during the cold months and whenhis feet get cold. Review of Systems Constitutional: Positive for activity change. Negative for appetite change. Respiratory: Negative for chest tightness and shortness of breath. Cardiovascular: Positive for leg swelling. Negative for chest pain. Musculoskeletal: Positive for arthralgias. Skin: Positive for color change. Negative for wound. Neurological: Positive for numbness. Negative for weakness. Psychiatric/Behavioral: Negative for agitation and behavioral problems. Hematological: Does not bruise/bleed easily. Endocrine: Negative for cold intolerance and heat intolerance. Allergic/Immunologic: Negative for immunocompromised state. Past medical History Past Medical History: Diagnosis Date CAD in pamunkey artery (CMS/HCC) Chronic seasonal allergic rhinitis due to pollen Duodenitis EDMOND (generalized anxiety disorder) ([facility]) Irritable bowel syndrome with diarrhea MDD (major depressive disorder), recurrent episode, mild (HCC) ([facility]) Memory change Migraine without aura and without status migrainosus, not intractable ([facility]) Mild intermittent asthma, uncomplicated ([facility]) Obstructive sleep apnea Pain, joint, knee, left Stage 3a chronic kidney disease (CKD) ([facility]) Type 2 diabetes mellitus with hyperglycemia, without long-term current use of insulin ([facility]) Ventricular ectopics Medications Current Outpatient Medications: albuterol HFA 90 mcg/act inhaler, Inhale 2 puffs every 4 (four) hours if needed for wheezing, Disp:18 g, Rfl: 3 atorvastatin (Lipitor) 40 MG tablet, Take 1 tablet (40 mg) by mouth Daily, Disp: 30 tablet, Rfl: 5 Blood Glucose Monitoring Suppl (Blood Glucose Monitor System) w/Device kit, 1 each Daily, Disp: 1 kit, Rfl: 0 clonazePAM (KlonoPIN) 2 MG tablet, TAKE 1 TABLET BY MOUTH THREE TIMES DAILY NEEDED FOR ANXIETY, Disp: 90 tablet, Rfl: 1 dicyclomine (Bentyl) 20 MG tablet, Take 1 tablet (20 mg) by mouth in the morning and 1 tablet (20 mg) at noon and 1 tablet (20 mg) in the evening and 1 tablet (20 mg) before bedtime. Take before meals., Disp: 120 tablet, Rfl: 11 FLUoxetine (PROzac) 40 MG capsule, Take 40 mg by mouth in the morning., Disp: , Rfl: glipiZIDE (Glucotrol) 10 MG tablet, TAKE TWO (2) TABLETS BY MOUTH TWICE DAILY, Disp: 120 tablet, Rfl: 10 Glucose Blood (Blood Glucose Test Strips 333) strip, 1 each by In Vitro route Daily, Disp: 50 strip, Rfl: 11 Jardiance 25 MG, TAKE 1 TABLET (25 MG) BY MOUTH DAILY, Disp: 30 tablet, Rfl: 10 Lancets Micro Thin 33G misc, 1 each Daily, Disp: 50 each, Rfl: 11 metFORMIN (Glucophage) 500 MG tablet, TAKE 1 TABLET BY MOUTH TWICE DAILY, Disp: 60 tablet, Rfl: 10 methocarbamol (Robaxin) 750 MG tablet, Take 750 mg by mouth in the morning and 750 mg in the evening and 750 mg before bedtime., Disp: , Rfl: nabumetone (Relafen) 500 MG tablet, Take 500 mg by mouth in the morning and 500 mg before bedtime.,Disp: , Rfl: omeprazole (PriLOSEC) [address] capsule, TAKE ONE (1) CAPSULE BY MOUTH TWICE DAILY, Disp: 60 capsule, Rfl: 10 pioglitazone (Actos) 30 MG tablet, Take 30 mg by mouth in the morning., Disp: , Rfl: semaglutide (Ozempic, 0.25 or 0.5 MG/DOSE,) 2 MG/1.5ML solution pen-injector, 0.25 mg SC weekly x 4weeks, then 0.5 mg weekly, Disp: 1 each, Rfl: 5 SUMAtriptan (Imitrex) 50 MG tablet, Take 0.5 tablets (25 mg) by mouth 1 (one) time if needed for migraine May repeat dose once in 2 hours if no relief. Do not exceed 2 doses in 24 hours., Disp: 9 tablet, Rfl: 5 topiramate 50 MG tablet, Take 50 mg by mouth in the morning and 50 mg before bedtime., Disp: 60 tablet, Rfl: 5 Allergies Patient has no known allergies. Past Surgical History Past Surgical History: Procedure Laterality Date CHOLECYSTECTOMY 11/23/2023 Family History Family History Problem Relation Name Age of Onset No Known Problems Mother No Known Problems Father Objective Physical Exam Constitutional: General: He is not in acute distress. Appearance: He is obese. Comments: Accompanied by his . Presents to clinic ambulating unassisted in tennis shoes. Cardiovascular: Comments: DP pulse: 1/4 PT pulse: 1/4 Skin temperature is warm to cool Edema: Minimal edema bilaterally Pulmonary: Effort: Pulmonary effort is normal. No respiratory distress. Musculoskeletal: Cervical back: Neck supple. No rigidity. Comments: Pedal deformities: Mild hammertoe contractures bilaterally. Ankle dorsiflexion 0 degrees with the knee extended, flexed bilaterally. Skin: Capillary Refill: Capillary refill takes less than 2 seconds. Comments: 2 toenails exhibit clinical mycosis with thickened appearance, yellow/brown discoloration, crumbly texture and subungual debris. All 10 toenail slightly elongated. Hyperkeratotic tissue: Left foot: None Right foot: None Skin is diffusely thin Hair growth: Absent Neurological: Mental Status: He is alert. Comments: Protective sensation intact at 7/10 pedal sites Vibratory sensation diminished at the 1st MTP bilaterally. Psychiatric: Mood and Affect: Mood normal. Behavior: Behavior normal. Assessment/Plan ICD-10-CM 1. Diabetic polyneuropathy associated with type 2 diabetes mellitus (CMS/HCC) E11.42 2. Onychodystrophy L60.3 3. Onychomycosis B35.1 4. Neuritis M79.2 5. Raynaud's phenomenon without gangrene I73.00 Patient was examined and evaluated. Diabetic foot evaluation performed. He is mild risk for pedal ulceration due to mild deformity and neuropathic symptomatology as well as concern for Raynaud's phenomenon. He has no pre ulcerations currently. Ten toenails were debrided in length and thickness today utilizing a nail nipper and electric bur blade grinder without incident. I have discussed the importanceof daily foot examinations and tight blood sugar control. We will follow up in 4 months for at riskdiabetic foot evaluation. This note was created with the assistance of a speech recognition program. While intending to generate a timely document that accurately reflects the content of the visit, no guarantee can be provided that every grammatical or spelling mistake has been or will be identified or corrected. Thank you for your understanding. Prasanna Alberto DPM documented in this [facility]12-18-2024 Telephone encounter Note* Telephone Encounter - Davion Pritchard MD - 01/27/2024 12:11 PM EST [facility] [id number] Miscellaneous Notes* Telephone Encounter - Davion Pritchard MD - 01/27/2024 12:11 PM EST documented in this [facility]12-12-2024 History of Present illness Narrative* Davion Pritchard MD - 01/21/2024 1:37 PM ESTAssociated Problem(s): Medicare annual wellness visit, subsequent Reviewed labs. Discussed proper diet and regular aerobic exercise. Need aerobic exercise 5-6 days aweek for 30 minutes at a time. Smaller portions and limit total calories. Colonoscopy every 10 years. Tetanus every 10 years. Advised not to smoke. * Davion Pritchard MD - 01/21/2024 1:00 PM EST Images from the original note were not included. Subjective Patient ID: Boo Capps is a 63 y.o. male who presents for Medicare Annual Wellness Visit Initial (wellness). Presents for medicare annual wellness visit. Patient stable today. Seen by GI and had stent removed. No pain. Weight down 49 pounds in past year. Not active and no regular exercise. Tries to watch diet and eat healthy. Increased fruits and vegetables. Smaller portions and limits snacking. Tries to limit total daily calories. Reviewed labs. Review of Systems Constitutional: Negative for fatigue. Respiratory: Negative for cough, shortness of breath and wheezing. Cardiovascular: Negative for chest pain and palpitations. Gastrointestinal: Negative for abdominal pain, diarrhea, nausea and vomiting. Genitourinary: Negative for dysuria. Objective Physical Exam Constitutional: General: He is not in acute distress. Appearance: Normal appearance. HENT: Head: Normocephalic. Right Ear: Tympanic membrane and ear canal normal. Left Ear: Tympanic membrane and ear canal normal. Eyes: Extraocular Movements: Extraocular movements intact. Pupils: Pupils are equal, round, and reactive to light. Cardiovascular: Rate and Rhythm: Normal rate and regular rhythm. Heart sounds: No murmur heard. No friction rub. No gallop. Pulmonary: Breath sounds: Normal breath sounds. No wheezing, rhonchi or rales. Abdominal: General: Bowel sounds are normal. There is no distension. Palpations: Abdomen is soft. Tenderness: There is no abdominal tenderness. There is no guarding or rebound. Musculoskeletal: General: Normal range of motion. Left lower leg: No edema. Neurological: General: No focal deficit present. Mental Status: He is alert. Cranial Nerves: No cranial nerve deficit. Deep Tendon Reflexes: Reflexes normal. Assessment/Plan Problem List Items Addressed This Visit Type 2 diabetes mellitus with hyperglycemia, without long-term current use of insulin ([facility]) Relevant Medications semaglutide (Ozempic, 0.25 or 0.5 MG/DOSE,) 2 MG/1.5ML solution pen-injector Medicare annual wellness visit, subsequent - Primary Reviewed labs. Discussed proper diet and regular aerobic exercise. Need aerobic exercise 5-6 days aweek for 30 minutes at a time. Smaller portions and limit total calories. Colonoscopy every 10 years. Tetanus every 10 years. Advised not to smoke. documented in this encounterEl[facility] [id number] History of Present illness Narrative* Kayla Henson, [employer] - 01/19/2024 9:30 AM EST Images from the original note were not included. Subjective Boo Capps is a 63 y.o. male status post robotic assisted laparoscopic subtotal cholecystectomy on 11/23/2023. He had postoperative bile leak so he was transferred to [facility] where heunderwent ERCP with stent placement on 11/26/2023. His and foster care case manager with him today. He is doing well postoperatively. He reports minimal yellow/bloody output from the drain. He denies fever and chills. He is tolerating oral intake. He is having bowel function with 1-2 bowel movements daily.He denies pain. He is already scheduled for removal of bile duct stent with GI. Interval update 01/19/2024: Patient underwent ERCP with removal of bile duct stent on 01/13/2024. He and have no concerns. He denies nausea, vomiting, pain, fever, chills. Objective Vitals: 01/19/24 0908 BP: 108/90 Pulse: 88 Physical Exam Constitutional: General: He is not in acute distress. Appearance: Normal appearance. He is not ill-appearing. Abdominal: General: There is no distension. Palpations: Abdomen is soft. Tenderness: There is no abdominal tenderness. There is no guarding. Skin: General: Skin is warm and dry. Coloration: Skin is not jaundiced. Findings: No bruising or erythema. Comments: Lap sites well healed. Final Pathologic Diagnosis Gallbladder: Acute and chronic cholecystitis, focally disrupted, with fibrinopurulent exudate, associated fat necrosis and reactive fibrosis. Negative for dysplasia or malignancy. Assessment Boo Capps is a 63 y.o.male status post subtotal cholecystectomy and ERCP due to postop bile leak. Plan Follow-up as needed. Status post laparoscopic cholecystectomy [Z90.49] LONG VIDAL [facility] [place] This note was created with the assistance of a speech recognition program. While intending to generate a timely document that accurately reflects the content of the visit, no guarantee can be provided that every grammatical or spelling mistake has been or will be identified or corrected. Thank you for your understanding. LONG Vidal 01/19/24 1011 [facility] Instructions* Pre- Procedure Instructions - Jane Neal RN - 01/06/2024 8:30 AM EST Your surgery/procedure is scheduled at [facility] on 01/13/24 at 1100 Arrival Time 0900 [facility] Address: [address] [place] [address] in [address] located on [facility]. Report to the Entrance B. Check in at the information desk the surgery. The waiting room located on the second floor. If you have any questions prior to surgery, please call Pre-Admission Clinic at [phone] between 7:30 am and 4:30 pm Thursday through Thursday. If you have questions the morning of surgery, please call the Pre-op Department at [phone]. Notify your SURGEON if you develop any illness such as a cold, cough, fever, sore throat, vomiting or are hospitalized between now and your surgery. Medication Instructions (Do not stop your medications without consulting the prescribing physician). Take the following medications the morning of surgery with a sip of water: per Dr Patricia instrustions Diabetic or Weight loss medications: HOLD jardiance LAST DOSE 01/09/24 Take inhalers as prescribed the morning of surgery. Due to the risk associated with these medications. If these medications are not held per instruction below, your surgery is at an increased risk for cancellation. SGLT2 Medications- Hold 3 days prior to surgery: Jardiance, Empagliflozin, Farxiga, Dapagliflozin, Invokana, Canagliflozin, Trijardy, Synjardy GLP-1 Medications (Injection or Pill)- If taken daily hold day of surgery. If taken weekly, hold 1 week prior to surgery: Adlyxin, Byetta, Bydureon, Ozempic, Rybelsus,Trulicity, Victoza, Wegovy, Lixisenatide, Exenatide, Semaglutide, Dulaglutide, Liraglutide GIP/GLP-1(Injection or Pill)- If taken daily hold day of surgery. If taken weekly, hold 1 week prior to surgery: Katelyn . Blood thinners: Please contact your prescribing physician regarding a stop/hold date for these medications. Medications such as Coumadin, Heparin, Aspirin, Plavix, Eliquis, Pradaxa Diabetics: If you take insulin, contact your prescribing doctor for instructions on how to manage this the night before and the morning of surgery. Non-steriodal Anti-Inflammatory Drugs (NSAIDS)- Hold 3 days prior to surgery unless otherwise directed by your surgeon. Vitamins/Herbal Products: You may continue to take your prescribed vitamins such as potassium, iron, vitamin B, vitamin C, or multivitamin unless specifically instructed by your surgeon to hold. STOPtaking all herbal products/teas one week prior to your surgery. Marijuana: Stop marijuana 72 hours prior to surgery, stop CBD oil 48 hours prior to surgery. If you have been given bowel prep instructions by your surgeon, please call the surgeon's office with any questions about these instructions. What do I do the day of Surgery? Age 2 through adult - Stop all solids by midnight, You may have clear liquids up to 2 hours before surgery, unless otherwise instructed by your surgeon. Clear liquids are: water, sports drinks such as Gatorade or G2, or apple juice. You may NOT have: tube feedings, dairy products, alcoholic beverages, orange juice, or any liquids with solids or pulp in it. If applicable, shower again with CHG soap the morning of your surgery. If you received a green plastic bracelet, bring it with you the day of surgery and your nurse will put it on you. In order to help prevent infection post-operatively, you may be asked to use a CHG mouthwash when you arrive to the Pre-op area. Your nurse will provide instruction the morning of. What do I need to do to prepare for surgery? If you will be going home the same day as your surgery, arrange for an adult over [address] Riding in a bus or taxi by yourself is not permitted. You should not smoke or drink alcohol 24 hours before your surgery. Alcohol thins the blood and may cause bleeding problems during surgery. Smoking increases the risk of breathing problems after surgery. Do not use lotions, creams, powders, perfume, make up, cologne or after-shaves day of surgery. Remove ALL jewelry including wedding rings, body piercings (including dermal piercings ,hair extensions that contain metal, nail namibian, make-up, and contact lens. You may brush your teeth the morning of surgery, but do not swallow the water. Wear your dentures and partial plates to the hospital (no adhesive). Shower the night the before. If applicable, use the CHG (chlorhexidine gluconate) soap or wipes What should I bring to the hospital? If you received a green plastic bracelet, bring it with you the day of surgery and your nurse will put it on you. Eyeglass or contact lens case If you will be spending the night, please bring personal care items and leave them in the car untilyou are taken to your room after surgery. Leave ALL valuables at home. If any of these instructions conflict with those you received from the surgeon, please seek clarification from your surgeon's office. DEEP BREATHING EXERCISES This exercise helps promote good air exchange and helps to prevent pneumonia after surgery. Breathe in slowly and deeply through the nose. Hold your breath for a few seconds and then exhale slowly through the mouth. Repeat this three times and then cough.Coughing helps to clear your lungs. If you have had a surgery with an incision into your abdomen or chest, press gently against your incision with a pillow or a folded blanket when you cough. Please be aware - it may not be edward to cough following some types of surgeries involving the eyes,ears, sinuses and throat. Always follow your doctor's instructions. LEG EXERCISE These exercises help promote good circulation and help to prevent blood clots after surgery. Point your toes to the ceiling and then point them to the wall. Do this slowly about 15-20 times. You may also move your feet in circles. Do the exercise that is most comfortable for you. If you have had surgery involving your shoulder or arm, we recommend you move your fingers. PRACTICING We ask that you begin practicing these exercises before your surgery. After surgery try to do both exercises at least every 2 hours during the day and early evening. SURGICAL SITE INFECTION PREVENTION What is a Surgical Site Infection? Infection can happen to the area of the body where surgery is done. This is called a surgical site infection (SSI). A SSI does not happen very often. Can SSIs be treated? Antibiotics are used to treat SSI. Some patients may need another surgery to treat the infection. The doctor will discuss treatment options with you. What are some of the things that hospitals are doing to prevent SSIs? Soap and water or alcohol hand rub are used before and after caring for each patient. Special soap is used to clean surgery workers hands and arms just before the surgery. Masks, gowns, gloves and hair covers are worn during the surgery to keep the area clean. Hair in the surgery area may be removed with clippers (not razors). A special soap that kills germs is used to clean the skin at the surgery site. Antibiotics may be given before the surgery starts. What can you do to prevent SSIs? Before surgery: You may be asked to shower or bathe with a special soap that kills germs the night before and the day of surgery. Use the soap as you were told. If you smoke, stop or cut down. Ask your doctor about ways to quit. Do not shave near where you will have surgery. Shaving can irritate the skin and make it easier to get and infection. After surgery: Be sure that the doctors and nurses clean their hands before and after touching you. Be sure your family and friends clean their hands before and after visiting you. Do not be afraid to remind them. * Care for your wound at home as told by your doctor or nurse * Call your doctor right away if you have fever, redness, increased pain, or drainage at the surgery site. Further questions? Contact the doctor, nurse or the Infection Prevention and Control department if you have any questions. PATIENT RIGHTS AND RESPONSIBILITIES As a patient at [facility], you have the right to: Receive medical care and be informed of who is taking care of you Be treated with dignity and respect Have a family member/account retention representative of choice and your physician notified of your admission Receive information and actively participate in decisions about your care and treatment Refuse care, treatment and services Decide who may provide your support and speak for you Access scientologist and spiritual services Participate in ethical issues and questions about your care Receive private and confidential care Have appropriate assessment and management of your pain Know guest visitation restrictions or limitations Have an advance directive Access protective services Consent or refuse to participate in research studies or production or recordings, films or other images Have resolution of your complaints Receive information of hospital charges and payment methods Patient/patient account retention representative responsibilities are to: Provide information about health status to facilitate care, treatment and services Follow the treatment, plan, keep appointments and speak up when you do not understand the plan Respect the rights of other patients and healthcare personnel Follow organizational rules and regulations that support quality care and a safe environment Fulfill financial obligations as promptly as possible [facility]11-27-[facility] Miscellaneous Notes* Perioperative Nursing Note - Jane Neal RN - 01/06/2024 8:30 AM EST PAC call complete, spoke with Lynne foster care case manager and to update chart, pre- procedure instructions given to both. Last dose of jardiance was 01/09/24. * Pre-Procedure Instructions - Jane Neal RN - 01/06/2024 8:30 AM EST Your surgery/procedure is scheduled at [facility] on 01/13/24 at 1100 Arrival Time 0900 [facility] Address: [address] [place] [address]. [address] lot located on [facility]. Report to the Entrance B. Check in at the information desk the surgery. The waiting room located on the second floor. If you have any questions prior to surgery, please call Pre-Admission Clinic at [phone] between 7:30 am and 4:30 pm Thursday through Thursday. If you have questions the morning of surgery, please call the Pre-op Department at [phone]. Notify your SURGEON if you develop any illness such as a cold, cough, fever, sore throat, vomiting or are hospitalized between now and your surgery. Medication Instructions (Do not stop your medications without consulting the prescribing physician). Take the following medications the morning of surgery with a sip of water: per Dr Raúl engel Diabetic or Weight loss medications: HOLD jardiance LAST DOSE 01/09/24 Take inhalers as prescribed the morning of surgery. Due to the risk associated with these medications. If these medications are not held per instruction below, your surgery is at an increased risk for cancellation. SGLT2 Medications- Hold 3 days prior to surgery: Jardiance, Empagliflozin, Farxiga, Dapagliflozin, Invokana, Canagliflozin, Trijardy, Synjardy GLP-1 Medications (Injection or Pill)- If taken daily hold day of surgery. If taken weekly, hold 1 week prior to surgery: Adlyxin, Byetta, Bydureon, Ozempic, Rybelsus,Trulicity, Victoza, Wegovy, Lixisenatide, Exenatide, Semaglutide, Dulaglutide, Liraglutide GIP/GLP-1(Injection or Pill)- If taken daily hold day of surgery. If taken weekly, hold 1 week prior to surgery: Mounjaro . Blood thinners: Please contact your prescribing physician regarding a stop/hold date for these medications. Medications such as Coumadin, Heparin, Aspirin, Plavix, Eliquis, Pradaxa Diabetics: If you take insulin, contact your prescribing doctor for instructions on how to manage this the night before and the morning of surgery. Non-steriodal Anti-Inflammatory Drugs (NSAIDS)- Hold 3 days prior to surgery unless otherwise directed by your surgeon. Vitamins/Herbal Products: You may continue to take your prescribed vitamins such as potassium, iron, vitamin B, vitamin C, or multivitamin unless specifically instructed by your surgeon to hold. STOPtaking all herbal products/teas one week prior to your surgery. Marijuana: Stop marijuana 72 hours prior to surgery, stop CBD oil 48 hours prior to surgery. If you have been given bowel prep instructions by your surgeon, please call the surgeon's office with any questions about these instructions. What do I do the day of Surgery? Age 2 through adult - Stop all solids by midnight, You may have clear liquids up to 2 hours before surgery, unless otherwise instructed by your surgeon. Clear liquids are: water, sports drinks such as Gatorade or G2, or apple juice. You may NOT have: tube feedings, dairy products, alcoholic beverages, orange juice, or any liquids with solids or pulp in it. If applicable, shower again with CHG soap the morning of your surgery. If you received a green plastic bracelet, bring it with you the day of surgery and your nurse will put it on you. In order to help prevent infection post-operatively, you may be asked to use a CHG mouthwash when you arrive to the Pre-op area. Your nurse will provide instruction the morning of. What do I need to do to prepare for surgery? If you will be going home the same day as your surgery, arrange for an adult over [address] Riding in a bus or taxi by yourself is not permitted. You should not smoke or drink alcohol 24 hours before your surgery. Alcohol thins the blood and may cause bleeding problems during surgery. Smoking increases the risk of breathing problems after surgery. Do not use lotions, creams, powders, perfume, make up, cologne or after-shaves day of surgery. Remove ALL jewelry including wedding rings, body piercings (including dermal piercings ,hair extensions that contain metal, nail namibian, make-up, and contact lens. You may brush your teeth the morning of surgery, but do not swallow the water. Wear your dentures and partial plates to the hospital (no adhesive). Shower the night the before. If applicable, use the CHG (chlorhexidine gluconate) soap or wipes What should I bring to the hospital? If you received a green plastic bracelet, bring it with you the day of surgery and your nurse will put it on you. Eyeglass or contact lens case If you will be spending the night, please bring personal care items and leave them in the car untilyou are taken to your room after surgery. Leave ALL valuables at home. If any of these instructions conflict with those you received from the surgeon, please seek clarification from your surgeon's office. DEEP BREATHING EXERCISES This exercise helps promote good air exchange and helps to prevent pneumonia after surgery. Breathe in slowly and deeply through the nose. Hold your breath for a few seconds and then exhale slowly through the mouth. Repeat this three times and then cough.Coughing helps to clear your lungs. If you have had a surgery with an incision into your abdomen or chest, press gently against your incision with a pillow or a folded blanket when you cough. Please be aware - it may not be edward to cough following some types of surgeries involving the eyes,ears, sinuses and throat. Always follow your doctor's instructions. LEG EXERCISE These exercises help promote good circulation and help to prevent blood clots after surgery. Point your toes to the ceiling and then point them to the wall. Do this slowly about 15-20 times. You may also move your feet in circles. Do the exercise that is most comfortable for you. If you have had surgery involving your shoulder or arm, we recommend you move your fingers. PRACTICING We ask that you begin practicing these exercises before your surgery. After surgery try to do both exercises at least every 2 hours during the day and early evening. SURGICAL SITE INFECTION PREVENTION What is a Surgical Site Infection? Infection can happen to the area of the body where surgery is done. This is called a surgical site infection (SSI). A SSI does not happen very often. Can SSIs be treated? Antibiotics are used to treat SSI. Some patients may need another surgery to treat the infection. The doctor will discuss treatment options with you. What are some of the things that hospitals are doing to prevent SSIs? Soap and water or alcohol hand rub are used before and after caring for each patient. Special soap is used to clean surgery workers hands and arms just before the surgery. Masks, gowns, gloves and hair covers are worn during the surgery to keep the area clean. Hair in the surgery area may be removed with clippers (not razors). A special soap that kills germs is used to clean the skin at the surgery site. Antibiotics may be given before the surgery starts. What can you do to prevent SSIs? Before surgery: You may be asked to shower or bathe with a special soap that kills germs the night before and the day of surgery. Use the soap as you were told. If you smoke, stop or cut down. Ask your doctor about ways to quit. Do not shave near where you will have surgery. Shaving can irritate the skin and make it easier to get and infection. After surgery: Be sure that the doctors and nurses clean their hands before and after touching you. Be sure your family and friends clean their hands before and after visiting you. Do not be afraid to remind them. * Care for your wound at home as told by your doctor or nurse * Call your doctor right away if you have fever, redness, increased pain, or drainage at the surgery site. Further questions? Contact the doctor, nurse or the Infection Prevention and Control department if you have any questions. PATIENT RIGHTS AND RESPONSIBILITIES As a patient at [facility], you have the right to: Receive medical care and be informed of who is taking care of you Be treated with dignity and respect Have a family member/account retention representative of choice and your physician notified of your admission Receive information and actively participate in decisions about your care and treatment Refuse care, treatment and services Decide who may provide your support and speak for you Access scientologist and spiritual services Participate in ethical issues and questions about your care Receive private and confidential care Have appropriate assessment and management of your pain Know guest visitation restrictions or limitations Have an advance directive Access protective services Consent or refuse to participate in research studies or production or recordings, films or other images Have resolution of your complaints Receive information of hospital charges and payment methods Patient/patient account retention representative responsibilities are to: Provide information about health status to facilitate care, treatment and services Follow the treatment, plan, keep appointments and speak up when you do not understand the plan Respect the rights of other patients and healthcare personnel Follow organizational rules and regulations that support quality care and a safe environment Fulfill financial obligations as promptly as possible [facility]* Perioperative Nursing Note - Jane Neal RN - 01/06/2024 8:30 AM EST PAC call complete, spoke with Lynne foster care case manager and to update chart, pre- procedure instructions given to both. Last dose of jardiance was 01/09/24. [facility] Instructions* Pre-Procedure Instructions - Fiorella Sandoval RN - 12/22/2023 8:30 AM EST Your surgery/procedure is scheduled at [facility] on 12-29-23 at 11:00 am Arrival Time 9:00 am [facility] Address: [address] [place] [address]. [place] [address] [address] located on [facility]. Report to the Entrance B. Check in at the information desk the surgery. The waiting room located on the second floor. If you have any questions prior to surgery, please call Pre-Admission Clinic at [phone] between 7:30 am and 4:30 pm Thursday through Thursday. If you have questions the morning of surgery, please call the Pre-op Department at [phone]. Notify your SURGEON if you develop any illness such as a cold, cough, fever, sore throat, vomiting or are hospitalized between now and your surgery. Medication Instructions (Do not stop your medications without consulting the prescribing physician). Take the following medications the morning of surgery with a sip of water: atorvastatin and topirmate Diabetic or Weight loss medications: HOLD Jardiance LAST DOSE 12-25-23 Take inhalers as prescribed the morning of surgery. Due to the risk associated with these medications. If these medications are not held per instruction below, your surgery is at an increased risk for cancellation. SGLT2 Medications- Hold 3 days prior to surgery: Jardiance, Empagliflozin, Farxiga, Dapagliflozin, Invokana, Canagliflozin, Trijardy, Synjardy GLP-1 Medications (Injection or Pill)- If taken daily hold day of surgery. If taken weekly, hold 1 week prior to surgery: Adlyxin, Byetta, Bydureon, Ozempic, Rybelsus,Trulicity, Victoza, Wegovy, Lixisenatide, Exenatide, Semaglutide, Dulaglutide, Liraglutide GIP/GLP-1(Injection or Pill)- If taken daily hold day of surgery. If taken weekly, hold 1 week prior to surgery: Mounjaro . Blood thinners: Please contact your prescribing physician regarding a stop/hold date for these medications. Medications such as Coumadin, Heparin, Aspirin, Plavix, Eliquis, Pradaxa Diabetics: If you take insulin, contact your prescribing doctor for instructions on how to manage this the night before and the morning of surgery. Non-steriodal Anti-Inflammatory Drugs (NSAIDS)- Hold 3 days prior to surgery unless otherwise directed by your surgeon. Vitamins/Herbal Products: You may continue to take your prescribed vitamins such as potassium, iron, vitamin B, vitamin C, or multivitamin unless specifically instructed by your surgeon to hold. STOPtaking all herbal products/teas one week prior to your surgery. Marijuana: Stop marijuana 72 hours prior to surgery, stop CBD oil 48 hours prior to surgery. What do I do the day of Surgery? Age 2 through adult - Stop all solids by midnight, You may have clear liquids up to 2 hours before surgery, unless otherwise instructed by your surgeon. Clear liquids are: water, sports drinks such as Gatorade or G2, or apple juice. You may NOT have: tube feedings, dairy products, alcoholic beverages, orange juice, or any liquids with solids or pulp in it. If applicable, shower again with CHG soap the morning of your surgery. If you received a green plastic bracelet, bring it with you the day of surgery and your nurse will put it on you. In order to help prevent infection post-operatively, you may be asked to use a CHG mouthwash when you arrive to the Pre-op area. Your nurse will provide instruction the morning of. What do I need to do to prepare for surgery? If you will be going home the same day as your surgery, arrange for an adult over [address] Riding in a bus or taxi by yourself is not permitted. You should not smoke or drink alcohol 24 hours before your surgery. Alcohol thins the blood and may cause bleeding problems during surgery. Smoking increases the risk of breathing problems after surgery. Do not use lotions, creams, powders, perfume, make up, cologne or after-shaves day of surgery. Remove ALL jewelry including wedding rings, body piercings (including dermal piercings ,hair extensions that contain metal, nail namibian, make-up, and contact lens. You may brush your teeth the morning of surgery, but do not swallow the water. Wear your dentures and partial plates to the hospital (no adhesive). What should I bring to the hospital? Eyeglass or contact lens case If you will be spending the night, please bring personal care items and leave them in the car untilyou are taken to your room after surgery. Leave ALL valuables at home. If any of these instructions conflict with those you received from the surgeon, please seek clarification from your surgeon's office. DEEP BREATHING EXERCISES This exercise helps promote good air exchange and helps to prevent pneumonia after surgery. Breathe in slowly and deeply through the nose. Hold your breath for a few seconds and then exhale slowly through the mouth. Repeat this three times and then cough.Coughing helps to clear your lungs. If you have had a surgery with an incision into your abdomen or chest, press gently against your incision with a pillow or a folded blanket when you cough. Please be aware - it may not be edward to cough following some types of surgeries involving the eyes,ears, sinuses and throat. Always follow your doctor's instructions. LEG EXERCISE These exercises help promote good circulation and help to prevent blood clots after surgery. Point your toes to the ceiling and then point them to the wall. Do this slowly about 15-20 times. You may also move your feet in circles. Do the exercise that is most comfortable for you. If you have had surgery involving your shoulder or arm, we recommend you move your fingers. PRACTICING We ask that you begin practicing these exercises before your surgery. After surgery try to do both exercises at least every 2 hours during the day and early evening. SURGICAL SITE INFECTION PREVENTION What is a Surgical Site Infection? Infection can happen to the area of the body where surgery is done. This is called a surgical site infection (SSI). A SSI does not happen very often. Can SSIs be treated? Antibiotics are used to treat SSI. Some patients may need another surgery to treat the infection. The doctor will discuss treatment options with you. What are some of the things that hospitals are doing to prevent SSIs? Soap and water or alcohol hand rub are used before and after caring for each patient. Special soap is used to clean surgery workers hands and arms just before the surgery. Masks, gowns, gloves and hair covers are worn during the surgery to keep the area clean. Hair in the surgery area may be removed with clippers (not razors). A special soap that kills germs is used to clean the skin at the surgery site. Antibiotics may be given before the surgery starts. What can you do to prevent SSIs? Before surgery: You may be asked to shower or bathe with a special soap that kills germs the night before and the day of surgery. Use the soap as you were told. If you smoke, stop or cut down. Ask your doctor about ways to quit. Do not shave near where you will have surgery. Shaving can irritate the skin and make it easier to get and infection. After surgery: Be sure that the doctors and nurses clean their hands before and after touching you. Be sure your family and friends clean their hands before and after visiting you. Do not be afraid to remind them. * Care for your wound at home as told by your doctor or nurse * Call your doctor right away if you have fever, redness, increased pain, or drainage at the surgery site. Further questions? Contact the doctor, nurse or the Infection Prevention and Control department if you have any questions. PATIENT RIGHTS AND RESPONSIBILITIES As a patient at [facility], you have the right to: Receive medical care and be informed of who is taking care of you Be treated with dignity and respect Have a family member/account retention representative of choice and your physician notified of your admission Receive information and actively participate in decisions about your care and treatment Refuse care, treatment and services Decide who may provide your support and speak for you Access scientologist and spiritual services Participate in ethical issues and questions about your care Receive private and confidential care Have appropriate assessment and management of your pain Know guest visitation restrictions or limitations Have an advance directive Access protective services Consent or refuse to participate in research studies or production or recordings, films or other images Have resolution of your complaints Receive information of hospital charges and payment methods Patient/patient account retention representative responsibilities are to: Provide information about health status to facilitate care, treatment and services Follow the treatment, plan, keep appointments and speak up when you do not understand the plan Respect the rights of other patients and healthcare personnel Follow organizational rules and regulations that support quality care and a safe environment Fulfill financial obligations as promptly as possible [facility] Miscellaneous Notes* Pre-Procedure Instructions - Fiorella Sandoval RN - 12/22/2023 8:30 AM EST Your surgery/procedure is scheduled at [facility] on 12-29-23 at 11:00 am Arrival Time 9:00 am [facility] Address: [address] [place] [address]. [place] [address] [address] located on [facility]. Report to the Entrance B. Check in at the information desk the surgery. The waiting room located on the second floor. If you have any questions prior to surgery, please call Pre-Admission Clinic at [phone] between 7:30 am and 4:30 pm Thursday through Thursday. If you have questions the morning of surgery, please call the Pre-op Department at [phone]. Notify your SURGEON if you develop any illness such as a cold, cough, fever, sore throat, vomiting or are hospitalized between now and your surgery. Medication Instructions (Do not stop your medications without consulting the prescribing physician). Take the following medications the morning of surgery with a sip of water: atorvastatin and topirmate Diabetic or Weight loss medications: HOLD Jardiance LAST DOSE 12-25-23 Take inhalers as prescribed the morning of surgery. Due to the risk associated with these medications. If these medications are not held per instruction below, your surgery is at an increased risk for cancellation. SGLT2 Medications- Hold 3 days prior to surgery: Jardiance, Empagliflozin, Farxiga, Dapagliflozin, Invokana, Canagliflozin, Trijardy, Synjardy GLP-1 Medications (Injection or Pill)- If taken daily hold day of surgery. If taken weekly, hold 1 week prior to surgery: Adlyxin, Byetta, Bydureon, Ozempic, Rybelsus,Trulicity, Victoza, Wegovy, Lixisenatide, Exenatide, Semaglutide, Dulaglutide, Liraglutide GIP/GLP-1(Injection or Pill)- If taken daily hold day of surgery. If taken weekly, hold 1 week prior to surgery: Mounjaro . Blood thinners: Please contact your prescribing physician regarding a stop/hold date for these medications. Medications such as Coumadin, Heparin, Aspirin, Plavix, Eliquis, Pradaxa Diabetics: If you take insulin, contact your prescribing doctor for instructions on how to manage this the night before and the morning of surgery. Non-steriodal Anti-Inflammatory Drugs (NSAIDS)- Hold 3 days prior to surgery unless otherwise directed by your surgeon. Vitamins/Herbal Products: You may continue to take your prescribed vitamins such as potassium, iron, vitamin B, vitamin C, or multivitamin unless specifically instructed by your surgeon to hold. STOPtaking all herbal products/teas one week prior to your surgery. Marijuana: Stop marijuana 72 hours prior to surgery, stop CBD oil 48 hours prior to surgery. What do I do the day of Surgery? Age 2 through adult - Stop all solids by midnight, You may have clear liquids up to 2 hours before surgery, unless otherwise instructed by your surgeon. Clear liquids are: water, sports drinks such as Gatorade or G2, or apple juice. You may NOT have: tube feedings, dairy products, alcoholic beverages, orange juice, or any liquids with solids or pulp in it. If applicable, shower again with CHG soap the morning of your surgery. If you received a green plastic bracelet, bring it with you the day of surgery and your nurse will put it on you. In order to help prevent infection post-operatively, you may be asked to use a CHG mouthwash when you arrive to the Pre-op area. Your nurse will provide instruction the morning of. What do I need to do to prepare for surgery? If you will be going home the same day as your surgery, arrange for an adult over [address] Riding in a bus or taxi by yourself is not permitted. You should not smoke or drink alcohol 24 hours before your surgery. Alcohol thins the blood and may cause bleeding problems during surgery. Smoking increases the risk of breathing problems after surgery. Do not use lotions, creams, powders, perfume, make up, cologne or after-shaves day of surgery. Remove ALL jewelry including wedding rings, body piercings (including dermal piercings ,hair extensions that contain metal, nail namibian, make-up, and contact lens. You may brush your teeth the morning of surgery, but do not swallow the water. Wear your dentures and partial plates to the hospital (no adhesive). What should I bring to the hospital? Eyeglass or contact lens case If you will be spending the night, please bring personal care items and leave them in the car untilyou are taken to your room after surgery. Leave ALL valuables at home. If any of these instructions conflict with those you received from the surgeon, please seek clarification from your surgeon's office. DEEP BREATHING EXERCISES This exercise helps promote good air exchange and helps to prevent pneumonia after surgery. Breathe in slowly and deeply through the nose. Hold your breath for a few seconds and then exhale slowly through the mouth. Repeat this three times and then cough.Coughing helps to clear your lungs. If you have had a surgery with an incision into your abdomen or chest, press gently against your incision with a pillow or a folded blanket when you cough. Please be aware - it may not be edward to cough following some types of surgeries involving the eyes,ears, sinuses and throat. Always follow your doctor's instructions. LEG EXERCISE These exercises help promote good circulation and help to prevent blood clots after surgery. Point your toes to the ceiling and then point them to the wall. Do this slowly about 15-20 times. You may also move your feet in circles. Do the exercise that is most comfortable for you. If you have had surgery involving your shoulder or arm, we recommend you move your fingers. PRACTICING We ask that you begin practicing these exercises before your surgery. After surgery try to do both exercises at least every 2 hours during the day and early evening. SURGICAL SITE INFECTION PREVENTION What is a Surgical Site Infection? Infection can happen to the area of the body where surgery is done. This is called a surgical site infection (SSI). A SSI does not happen very often. Can SSIs be treated? Antibiotics are used to treat SSI. Some patients may need another surgery to treat the infection. The doctor will discuss treatment options with you. What are some of the things that hospitals are doing to prevent SSIs? Soap and water or alcohol hand rub are used before and after caring for each patient. Special soap is used to clean surgery workers hands and arms just before the surgery. Masks, gowns, gloves and hair covers are worn during the surgery to keep the area clean. Hair in the surgery area may be removed with clippers (not razors). A special soap that kills germs is used to clean the skin at the surgery site. Antibiotics may be given before the surgery starts. What can you do to prevent SSIs? Before surgery: You may be asked to shower or bathe with a special soap that kills germs the night before and the day of surgery. Use the soap as you were told. If you smoke, stop or cut down. Ask your doctor about ways to quit. Do not shave near where you will have surgery. Shaving can irritate the skin and make it easier to get and infection. After surgery: Be sure that the doctors and nurses clean their hands before and after touching you. Be sure your family and friends clean their hands before and after visiting you. Do not be afraid to remind them. * Care for your wound at home as told by your doctor or nurse * Call your doctor right away if you have fever, redness, increased pain, or drainage at the surgery site. Further questions? Contact the doctor, nurse or the Infection Prevention and Control department if you have any questions. PATIENT RIGHTS AND RESPONSIBILITIES As a patient at [facility], you have the right to: Receive medical care and be informed of who is taking care of you Be treated with dignity and respect Have a family member/account retention representative of choice and your physician notified of your admission Receive information and actively participate in decisions about your care and treatment Refuse care, treatment and services Decide who may provide your support and speak for you Access scientologist and spiritual services Participate in ethical issues and questions about your care Receive private and confidential care Have appropriate assessment and management of your pain Know guest visitation restrictions or limitations Have an advance directive Access protective services Consent or refuse to participate in research studies or production or recordings, films or other images Have resolution of your complaints Receive information of hospital charges and payment methods Patient/patient account retention representative responsibilities are to: Provide information about health status to facilitate care, treatment and services Follow the treatment, plan, keep appointments and speak up when you do not understand the plan Respect the rights of other patients and healthcare personnel Follow organizational rules and regulations that support quality care and a safe environment Fulfill financial obligations as promptly as possible documented [facility] History of Present illness Narrative* Davion Pritchard MD - 12/08/2023 12:28 PM EDTAssociated Problem(s): Bile leak Healing well and follow with specialists. 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 * Davion Pritchard MD - 12/08/2023 12:28 PM EDTAssociated Problem(s): Type 2 diabetes mellitus with hyperglycemia, without long-term current use of insulin ([facility]) Recent A1C 9.1. Stay off ozempic until next visit. Need to monitor BS once a day. Stick to ADA dietand limit carbs. * Davion Pritchard MD - 12/08/2023 11:30 AM EDT Images from the original note were not included. Subjective Patient ID: Boo Capps is a 63 y.o. male who presents for Follow-up (Surgical f/u). Hospital follow up from 11/19-11/27. Patient seen in office with c/o worsening abdominal pain. CT abdomen ordered and performed 11/18 which showed choleycystoduodenal fistula. Directed to ER and admitted. Patient had lap choly 11/22. Postoperatively developed bile leak and transferred to [facility] 11/24.Patient had ERCP and stent placement 11/25. Currently home with home health and getting PT. Strength slowly improving. Continues to have decreased appetite but tolerating PO. Seen surgeon this am anddrain removed. Minimal pain. Scheduled for ERCP 12/28 and likely will have biliary stent removed. Not checking BS since home. Remains off ozempic. Review of Systems Constitutional: Negative for fatigue. Respiratory: Negative for cough, shortness of breath and wheezing. Cardiovascular: Negative for chest pain and palpitations. Gastrointestinal: Negative for abdominal pain, diarrhea, nausea and vomiting. Genitourinary: Negative for dysuria. Objective Physical Exam Constitutional: General: He is not in acute distress. Appearance: Normal appearance. HENT: Head: Normocephalic. Right Ear: Tympanic membrane and ear canal normal. Left Ear: Tympanic membrane and ear canal normal. Eyes: Extraocular Movements: Extraocular movements intact. Pupils: Pupils are equal, round, and reactive to light. Cardiovascular: Rate and Rhythm: Normal rate and regular rhythm. Heart sounds: No murmur heard. No friction rub. No gallop. Pulmonary: Breath sounds: Normal breath sounds. No wheezing, rhonchi or rales. Abdominal: General: Bowel sounds are normal. There is no distension. Palpations: Abdomen is soft. Tenderness: There is no abdominal tenderness. There is no guarding or rebound. Musculoskeletal: Left lower leg: No edema. Neurological: Mental Status: He is alert. Assessment/Plan Problem List Items Addressed This Visit Duodenal fistula - Primary Healing well and follow with surgeon. Type 2 diabetes mellitus with hyperglycemia, without long-term current use of insulin ([facility]) Recent A1C 9.1. Stay off ozempic until next visit. Need to monitor BS once a day. Stick to ADA dietand limit carbs. Bile leak Healing well and follow with specialists. documented in [facility] encounterEl[facility] [id number] History of Present illness Narrative* Kayla Hensno, [employer] - 12/08/2023 10:15 AM EDT Subjective Boo Capps is a 63 y.o. male status post robotic assisted laparoscopic subtotal cholecystectomy on 11/23/2023. He had postoperative bile leak so [facility] he[facility] with stent placement on 11/26/2023. His and foster care case manager with him today. He is doing well postoperatively. He reports minimal yellow/bloody output from the drain. He denies fever and chills. He is tolerating oral intake. He is having bowel function with 1-2 bowel movements daily.He denies pain. He is already scheduled for removal of bile duct stent with GI. Objective Vitals: 12/08/23 1006 BP: 126/77 Physical Exam Constitutional: General: He is not in acute distress. Abdominal: General: There is no distension. Palpations: Abdomen is soft. Tenderness: There is no abdominal tenderness. There is no guarding. Skin: General: Skin is warm and dry. Coloration: Skin is not jaundiced. Findings: No erythema. Comments: Lap sites clean, dry intact. No signs of infection. Drain with < 5 mL of serosanguineous drainage in it. This was removed in office today. Clean dressing applied. Final Pathologic Diagnosis Gallbladder: Acute and chronic cholecystitis, focally disrupted, with fibrinopurulent exudate, associated fat necrosis and reactive fibrosis. Negative for dysplasia or malignancy. Assessment Boo Capps is a 63 y.o.male status post subtotal cholecystectomy and ERCP due to postop bile leak. Plan Keep drain removal site clean and dry. Follow up 1 month. Call back sooner if needed. Status post laparoscopic cholecystectomy [Z90.49] LONG VIDAL [facility] [place] This note was created with the assistance of a speech recognition program. While intending to generate a timely document that accurately reflects the content of the visit, no guarantee can be provided that every grammatical or spelling mistake has been or will be identified or corrected. Thank you for your understanding. LONG Vidal 12/08/23 1056 [facility] Plan of care note * Plan of Care - Miranda Chiang RN - 11/28/2023 12:39 PM EDT Problem: Pain Goal: Patient goal is pain score less than 4, able to rest, and participant in treatment plan as appropriate Description: INTERVENTIONS: 1. Encourage patient or legal account retention representative to report early pain and ask for pain medicine when needed 2. Assess pain using appropriate pain scale and include the scale used when documenting 3. Administer analgesics based on type and severity of pain and evaluate response within appropriate time frame 4. Implement non-pharmacological measures as appropriate and evaluate response 5. Consider cultural and social influences on pain and pain management 6. Notify LIP if interventions ineffective or patient reports new pain 7. Monitor vital signs including pulse ox, end-tidal CO2 based on pain intervention 8. Reassess pain per policy 9. Teach patient or legal account retention representative interventions for comforting Note: Evaluation of progress towards goal: pain meds given as needed. Pt denies pain at this time Problem: Safety Goal: Patient will be injury free during hospitalization Description: INTERVENTIONS: 1. Assess patient's risk for falls and implement fall prevention plan of care per policy 2. Provide and maintain a safe environment 3. Proper use of double Identifiers 4. Medication administration using the 5 rights 5. Hand hygiene 6. Specimens are labeled at the bedside 7. Instruct patient/ patient account retention representative about use of safety devices 8. Include patient/ patient account retention representative in decisions related to safety Note: Evaluation of progress towards goal: pt remains free from fall/injury, call light in reach Problem: Infection Goal: Absence of infection during hospitalization Description: Interventions: 1. Assess and monitor for signs and symptoms of infection 2. Monitor lab/diagnostic results 3. Monitor all insertion sites i.e., indwelling lines, tubes and drains 4. Monitor endotracheal (as able) and nasal secretions for changes in amount and color 5. Administer medications as ordered 6. Instruct and encourage patient and family to use good hand hygiene technique 7. Identify and instruct patient/patient account retention representative in use of appropriate isolation precautionsfor identified infection/symptoms 8. Provide and discuss with patient/patient account retention representative on educational MDRO sheet 9. Encourage and monitor nutritional status daily and consult production foreman if indicated 10. Implement neutropenic guidelines as needed 11. Review exposure to history of communicable disease and recent travel history on admission 12. Encourage annual influenza vaccine 13. Encourage pneumonia vaccine Note: Evaluation of progress towards goal: monitoring labs and vitals until discharge Problem: Knowledge Deficit Goal: Patient/patient account retention representative demonstrates understanding of disease process, treatment plan,medications, and discharge instructions Description: INTERVENTIONS 1. Complete learning assessment and assess knowledge base 2. Provide teaching at level of understanding 3. Provide teaching via preferred learning method(s) Note: Evaluation of progress towards goal: will notify pt of any changes in care plan. Encouraged to ask questions Problem: Discharge Planning Goal: Discharge to post-acute care, other facility, or home with appropriate resources Description: Patient's goal is: INTERVENTIONS 1. Conduct assessment to determine patient/family and health care team treatment goals, and need for post-acute services based on payer coverage, community resources, and patient preferences, and barriers to discharge 2. Coordinate with Social work, Care Navigation, and Utilization Review to arrange appropriate level of services according to patient's needs based on patient preference and payer coverage in collaboration with the physician and health care team 3. Address psychosocial, clinical, and financial barriers to discharge as identified in assessment in conjunction with the patient/family and health care team 4. Consult appropriate ancillary services (i.e.. PT/OT/ST, etc) as needed 5. Communicate with and update the patient/family, physician, and health care team regarding progress on the discharge plan 6. Identify discharge learning needs (meds, wound care, etc). 7. Arrange for needed discharge transportation as appropriate Note: Evaluation of progress towards goal: home Oree [id number] Miscellaneous Notes* Plan of Care - Miranda Chiang RN - 11/28/2023 12:39 PM EDT Problem: Pain Goal: Patient goal is pain score less than 4, able to rest, and participant in treatment plan as appropriate Description: INTERVENTIONS: 1. Encourage patient or legal account retention representative to report early pain and ask for pain medicine when needed 2. Assess pain using appropriate pain scale and include the scale used when documenting 3. Administer analgesics based on type and severity of pain and evaluate response within appropriate time frame 4. Implement non-pharmacological measures as appropriate and evaluate response 5. Consider cultural and social influences on pain and pain management 6. Notify LIP if interventions ineffective or patient reports new pain 7. Monitor vital signs including pulse ox, end-tidal CO2 based on pain intervention 8. Reassess pain per policy 9. Teach patient or legal account retention representative interventions for comforting Note: Evaluation of progress towards goal: pain meds given as needed. Pt denies pain at this time Problem: Safety Goal: Patient will be injury free during hospitalization Description: INTERVENTIONS: 1. Assess patient's risk for falls and implement fall prevention plan of care per policy 2. Provide and maintain a safe environment 3. Proper use of double Identifiers 4. Medication administration using the 5 rights 5. Hand hygiene 6. Specimens are labeled at the bedside 7. Instruct patient/ patient account retention representative about use of safety devices 8. Include patient/ patient account retention representative in decisions related to safety Note: Evaluation of progress towards goal: pt remains free from fall/injury, call light in reach Problem: Infection Goal: Absence of infection during hospitalization Description: Interventions: 1. Assess and monitor for signs and symptoms of infection 2. Monitor lab/diagnostic results 3. Monitor all insertion sites i.e., indwelling lines, tubes and drains 4. Monitor endotracheal (as able) and nasal secretions for changes in amount and color 5. Administer medications as ordered 6. Instruct and encourage patient and family to use good hand hygiene technique 7. Identify and instruct patient/patient account retention representative in use of appropriate isolation precautionsfor identified infection/symptoms 8. Provide and discuss with patient/patient account retention representative on educational MDRO sheet 9. Encourage and monitor nutritional status daily and consult production foreman if indicated 10. Implement neutropenic guidelines as needed 11. Review exposure to history of communicable disease and recent travel history on admission 12. Encourage annual influenza vaccine 13. Encourage pneumonia vaccine Note: Evaluation of progress towards goal: monitoring labs and vitals until discharge Problem: Knowledge Deficit Goal: Patient/patient account retention representative demonstrates understanding of disease process, treatment plan,medications, and discharge instructions Description: INTERVENTIONS 1. Complete learning assessment and assess knowledge base 2. Provide teaching at level of understanding 3. Provide teaching via preferred learning method(s) Note: Evaluation of progress towards goal: will notify pt of any changes in care plan. Encouraged to ask questions Problem: Discharge Planning Goal: Discharge to post-acute care, other facility, or home with appropriate resources Description: Patient's goal is: INTERVENTIONS 1. Conduct assessment to determine patient/family and health care team treatment goals, and need for post-acute services based on payer coverage, community resources, and patient preferences, and barriers to discharge 2. Coordinate with Social work, Care Navigation, and Utilization Review to arrange appropriate level of services according to patient's needs based on patient preference and payer coverage in collaboration with the physician and health care team 3. Address psychosocial, clinical, and financial barriers to discharge as identified in assessment in conjunction with the patient/family and health care team 4. Consult appropriate ancillary services (i.e.. PT/OT/ST, etc) as needed 5. Communicate with and update the patient/family, physician, and health care team regarding progress on the discharge plan 6. Identify discharge learning needs (meds, wound care, etc). 7. Arrange for needed discharge transportation as appropriate Note: Evaluation of progress towards goal: home * Discharge Planning Note - Yvonne Cardenas RN - 11/28/2023 9:06 AM EDT DISCHARGE PLANNING NOTE Case and chart reviewed by CN. CRF and discharge orders written by provider, reviewed by CN. Discharge Plan remains: home with [facility]. CRF sent. CN confirmed with [facility] that rollator was delivered to pt's room. CN spoke with pt at bedside to confirm 11 am transport and rollator. CN is available should any further needs arise. - Yvonne Cardenas RN 11/28/23 9:07 AM * Plan of Care - Meredith Voss RN - 11/27/2023 10:43 PM EDT Problem: Pain Goal: Patient goal is pain score less than 4, able to rest, and participant in treatment plan as appropriate Description: INTERVENTIONS: 1. Encourage patient or legal account retention representative to report early pain and ask for pain medicine when needed 2. Assess pain using appropriate pain scale and include the scale used when documenting 3. Administer analgesics based on type and severity of pain and evaluate response within appropriate time frame 4. Implement non-pharmacological measures as appropriate and evaluate response 5. Consider cultural and social influences on pain and pain management 6. Notify LIP if interventions ineffective or patient reports new pain 7. Monitor vital signs including pulse ox, end-tidal CO2 based on pain intervention 8. Reassess pain per policy 9. Teach patient or legal account retention representative interventions for comforting Outcome: Progressing Note: Evaluation of progress towards goal: pharmacologic and nonpharmacologic interventions utilized to ease pain. Patient able to rate pain on a scale of 1- 10. Denies any pain at this time. Problem: Safety Goal: Patient will be injury free during hospitalization Description: INTERVENTIONS: 1. Assess patient's risk for falls and implement fall prevention plan of care per policy 2. Provide and maintain a safe environment 3. Proper use of double Identifiers 4. Medication administration using the 5 rights 5. Hand hygiene 6. Specimens are labeled at the bedside 7. Instruct patient/ patient account retention representative about use of safety devices 8. Include patient/ patient account retention representative in decisions related to safety Outcome: Progressing Note: Evaluation of progress towards goal: Patient remains free from falls/injuries. Call light within reach and use is encouraged. Bed in lowest position with wheels locked. Area free from any clutter with adequate lighting. Problem: Infection Goal: Absence of infection during hospitalization Description: Interventions: 1. Assess and monitor for signs and symptoms of infection 2. Monitor lab/diagnostic results 3. Monitor all insertion sites i.e., indwelling lines, tubes and drains 4. Monitor endotracheal (as able) and nasal secretions for changes in amount and color 5. Administer medications as ordered 6. Instruct and encourage patient and family to use good hand hygiene technique 7. Identify and instruct patient/patient account retention representative in use of appropriate isolation precautionsfor identified infection/symptoms 8. Provide and discuss with patient/patient account retention representative on educational MDRO sheet 9. Encourage and monitor nutritional status daily and consult production foreman if indicated 10. Implement neutropenic guidelines as needed 11. Review exposure to history of communicable disease and recent travel history on admission 12. Encourage annual influenza vaccine 13. Encourage pneumonia vaccine Outcome: Progressing Note: Evaluation of progress towards goal: patient is afebrile. Labs and vitals monitored. [place] precautions maintained. Problem: Knowledge Deficit Goal: Patient/patient account retention representative demonstrates understanding of disease process, treatment plan,medications, and discharge instructions Description: INTERVENTIONS 1. Complete learning assessment and assess knowledge base 2. Provide teaching at level of understanding 3. Provide teaching via preferred learning method(s) Outcome: Progressing Note: Evaluation of progress towards goal: Patient updated on plan of care. All questions answered at this time. Verbalizes understanding. Problem: Discharge Planning Goal: Discharge to post-acute care, other facility, or home with appropriate resources Description: Patient's goal is: INTERVENTIONS 1. Conduct assessment to determine patient/family and health care team treatment goals, and need for post-acute services based on payer coverage, community resources, and patient preferences, and barriers to discharge 2. Coordinate with Social work, Care Navigation, and Utilization Review to arrange appropriate level of services according to patient's needs based on patient preference and payer coverage in collaboration with the physician and health care team 3. Address psychosocial, clinical, and financial barriers to discharge as identified in assessment in conjunction with the patient/family and health care team 4. Consult appropriate ancillary services (i.e.. PT/OT/ST, etc) as needed 5. Communicate with and update the patient/family, physician, and health care team regarding progress on the discharge plan 6. Identify discharge learning needs (meds, wound care, etc). 7. Arrange for needed discharge transportation as appropriate Outcome: Progressing Note: Evaluation of progress towards goal: Discharge needs discussed at DTRs. Will continue to assess. Problem: Glucose Imbalance Goal: Clinical indication of glucose balance is achieved Description: Patient's goal is: INTERVENTIONS 1. Monitor blood glucose levels as ordered 2. Administer medications as ordered 3. Notify physician of ineffective treatment plan Outcome: Progressing Note: Evaluation of progress towards goal: glucose checked per MD order. Insulin given per sliding scale per MD order. Goal: Patient's discharge needs are met Description: Patient's goal is: INTERVENTIONS 1. Assess patient for self-management skills 2. Encourage participation in diabetes management 3. Identify potential discharge barriers on admission and throughout hospital stay 4. Involve patient/S.O. in discharge planning process 5. Communicate referral to chemical educator as appropriate 6. Communicate referral to production foreman as appropriate 7. Collaborate with case management/forensic social worker for discharge needs Outcome: Progressing Note: Evaluation of progress towards goal: progressing * Plan of Care - Ai Salvador RN - 11/27/2023 6:30 PM EDT Problem: Pain Goal: Patient goal is pain score less than 4, able to rest, and participant in treatment plan as appropriate Description: INTERVENTIONS: 1. Encourage patient or legal account retention representative to report early pain and ask for pain medicine when needed 2. Assess pain using appropriate pain scale and include the scale used when documenting 3. Administer analgesics based on type and severity of pain and evaluate response within appropriate time frame 4. Implement non-pharmacological measures as appropriate and evaluate response 5. Consider cultural and social influences on pain and pain management 6. Notify LIP if interventions ineffective or patient reports new pain 7. Monitor vital signs including pulse ox, end-tidal CO2 based on pain intervention 8. Reassess pain per policy 9. Teach patient or legal account retention representative interventions for comforting Outcome: Progressing Note: Evaluation of progress towards goal: Medicated for pain as needed will continue to monitor Problem: Safety Goal: Patient will be injury free during hospitalization Description: INTERVENTIONS: 1. Assess patient's risk for falls and implement fall prevention plan of care per policy 2. Provide and maintain a safe environment 3. Proper use of double Identifiers 4. Medication administration using the 5 rights 5. Hand hygiene 6. Specimens are labeled at the bedside 7. Instruct patient/ patient account retention representative about use of safety devices 8. Include patient/ patient account retention representative in decisions related to safety Outcome: Progressing Note: Evaluation of progress towards goal: Bed low, locked, call light in reach. Will continue to monitor Problem: Infection Goal: Absence of infection during hospitalization Description: Interventions: 1. Assess and monitor for signs and symptoms of infection 2. Monitor lab/diagnostic results 3. Monitor all insertion sites i.e., indwelling lines, tubes and drains 5. Administer medications as ordered 6. Instruct and encourage patient and family to use good hand hygiene technique 11. Review exposure to history of communicable disease and recent travel history on admission 12. Encourage annual influenza vaccine 13. Encourage pneumonia vaccine Outcome: Progressing Note: Evaluation of progress towards goal: Patient remains free from infection, will continue to monitor Problem: Knowledge Deficit Goal: Patient/patient account retention representative demonstrates understanding of disease process, treatment plan,medications, and discharge instructions Description: INTERVENTIONS 1. Complete learning assessment and assess knowledge base 2. Provide teaching at level of understanding 3. Provide teaching via preferred learning method(s) Outcome: Progressing Note: Evaluation of progress towards goal: Patient was included in daily plan of care. Problem: Discharge Planning Goal: Discharge to post-acute care, other facility, or home with appropriate resources Description: Patient's goal is: INTERVENTIONS 1. Conduct assessment to determine patient/family and health care team treatment goals, and need for post-acute services based on payer coverage, community resources, and patient preferences, and barriers to discharge 2. Coordinate with Social work, Care Navigation, and Utilization Review to arrange appropriate level of services according to patient's needs based on patient preference and payer coverage in collaboration with the physician and health care team 3. Address psychosocial, clinical, and financial barriers to discharge as identified in assessment in conjunction with the patient/family and health care team 4. Consult appropriate ancillary services (i.e.. PT/OT/ST, etc) as needed 5. Communicate with and update the patient/family, physician, and health care team regarding progress on the discharge plan 6. Identify discharge learning needs (meds, wound care, etc). 7. Arrange for needed discharge transportation as appropriate Outcome: Progressing Note: Evaluation of progress towards goal: Progressing towards discharge Problem: Glucose Imbalance Goal: Clinical indication of glucose balance is achieved Description: Patient's goal is: INTERVENTIONS 1. Monitor blood glucose levels as ordered 2. Administer medications as ordered 3. Notify physician of ineffective treatment plan Outcome: Progressing Note: Evaluation of progress towards goal: Patient remains free from falls Goal: Patient's discharge needs are met Description: Patient's goal is: INTERVENTIONS 1. Assess patient for self-management skills 2. Encourage participation in diabetes management 3. Identify potential discharge barriers on admission and throughout hospital stay 4. Involve patient/S.O. in discharge planning process 5. Communicate referral to chemical educator as appropriate 6. Communicate referral to production foreman as appropriate 7. Collaborate with case management/forensic social worker for discharge needs Outcome: Progressing Note: Evaluation of progress towards goal: Discharge needs will be discussed with pt and met beforedischarge. Problem: Moderate - High Risk Fall Score Description: Cha Fall Score of =/> 25 or indicated by [facility] Assessment Goal: Patient should be free from fall Description: Interventions: 1. [place] to environment 2. Hourly rounds addressing the 4 P's (Pain, Positioning, Possessions, Potty) 3. Clear area of hazards (spills, clutter, electrical cords, unnecessary equipment) 4. Place equipment (bed & TV controls, call light, phone, urinal) within reach 5. Encourage patient to wear glasses and hearing aides as appropriate 6. Maintain bed in lowest position 7. Lock wheels on bed/wheelchair 8. Provide adequate lighting, including night light 9. Assess need for additional bedding, food/fluids, pain med's prior to sleep/routinely 10. Provide gripper slippers or personal non-skid footwear 11. Teach patient and patient account retention representative to maintain environment for safety and engage in all aspects of fall prevention program 12. Remind patient to call for help before getting out of bed 15. Evaluate and identify Safe Patient Handling Equipment needs 16. Provide supervision when out of bed or chair 19. Request patient account retention representative bring adaptive equipment/mobility aids from home or obtain and provide as needed 20. Consult pharmacy regarding effects of med's affecting mobility, cognition, and alternatives 24. Educate patient and patient account retention representative how to maintain a safe environment during Outcome: Progressing Note: Evaluation of progress towards goal: Patient remains free from falls * Discharge Planning Note - Loreto Gusman - 11/27/2023 4:27 PM EDT DISCHARGE PLANNING NOTE Ambulette transport via PTN to patient's home 10.24 at 11:00am. Spoke with Marilou at [facility]. * Discharge Planning Note - Hannah Nunez RN - 11/27/2023 2:40 PM EDT DISCHARGE PLANNING NOTE Case discussed in daily transition rounds and chart reviewed by CN. Barriers to discharge include no medical barriers at this time, discharge order written. Discharge Plan remains: home with [facility], CN sent CRF and notified that patient is ready for discharge. Patient requested CN call [facility] for transport, [facility] unable to provide wheelchair and needs 48 hours advance notice. CN notified patient, patient would like PTN transport. CN tasked [facility] to patient's home for 3:30 today. Patient has elevator to enter home. CN sent rollator walker script and face to face to [facility]. CN will continue to follow and is available should any further needs arise. - Hannah Nunez RN 11/27/23 2:41 PM CN sent updated rollator script to [facility] and notified of transport time tomorrow. CN notified of 1100transport tomorrow, CN notified MD and RN. CN asked RN to relay to patient. - Hannah Nunez RN 11/27/23 4:33 PM * Plan of Care - Ena Paz MD - 11/27/2023 1:10 PM EDT General Surgery Plan of Care: The patient has a mobility limitation that significantly impairs their ability to participate in one or more mobility related activities of daily living in the home which prevents the beneficiary from completing the MRADL within a reasonable time frame. Patient requires a seat on the walker to takebreaks due to the fact that the patient is unable to walk long distances without having to stop & rest. The patient is able to safely use the rollator and the functional mobility deficit can be sufficiently resolved by the use of a rollator. A 2 wheeled walker & a cane have been tried and ruled out. ENA PAZ MD General Surgery Resident PGY-1 * PT/OT/NUTRITION CONSULTANT - KAJAL Kay - 11/27/2023 11:13 AM EDT Occupational Therapy Treatment Discharge Recommendations OT Recommendations : Home Home Recommendations: 24 hour caregiver support for: (ADL/IADLs as needed.) 6 Clicks: Daily Activity Putting on and taking off regular lower body clothing?: A little Bathing (including washing, rinsing, drying)?: A little Toileting, which includes using toilet, bedpan or urinal?: A little Putting on and taking off regular upper body clothing?: A little Taking care of personal grooming such as brushing teeth?: A little Eating meals?: None Scoring Daily Activity Raw Score: 19 CMS G Code Modifier: CK OT Treatment/Interventions: ADL retraining, Functional transfer training, UE strengthening/ROM, Endurance training, Patient/family training, Balance, Bed mobility, Compensatory technique education, Functional activities OT Frequency: 4-5days/week OT Duration: LOS Assessment Patient Assessment Therapy Problem List: Decreased ADL status, Decreased balance, Decreased cognition, Decreased endurance, Decreased fine motor, Decreased gross motor, Decreased high-level ADLs, Decreased mobility, Decreased safe judgement during ADL, Decreased self-care trans, Decreased UE strength Patient Response to Treatment: Progressing toward goals Mood/Affect: Appropriate for circumstances Rehab Prognosis: Good, With continued OT status post acute discharge Visit RN Communication: Yes Medical Record Reviewed: Yes OT Type of Visit: Treatment Precautions Activity: okay to see per RN Equipment: RW, gait belt, CLAUDIO drain Telemetry/Kitchenwhere Maker: Yes Oxygen Used: room air Other: fall risk Pain Assessment Pain Assessment: No/denies pain ADL / IADL Hand Dominance: Right Where Assessed: Sitting at sink Grooming Assistance: Setup Grooming Deficit: Verbal cueing, Increased time to complete, Wash/dry face, Oral hygiene Other: Pt completed grooming tasks seated at sink. Increased cues for task initiation and attentionto task. Home Management - IADL Other: Pt completed grooming tasks seated at sink. Increased cues for task initiation and attentionto task. Hearing / Speech / Vision Hearing: Within Functional Limits Speech: Within Functional Limits Current Vision: Wears glasses all the time Cognition Arousal/Alertness: Appropriate responses to stimuli Attention Span: Attends with cues to redirect Following Commands: Follows one step commands with increased time Other: Increased cues required for attention to task. Bed Mobility Other: Pt in chair upon arrival and at exit with call light within reach, RN aware. Transfers Sit to Stand: Contact guard assist Stand to Sit: Contact guard assist Other: Cues for proper hand placement. RW for support. No LOB noted. Gait Gait Assistance: Contact guard assist Assistive Device: Rolling walker Gait Distance: 15' x2 Limiting Factors to Gait: Fatigue, Weakness Other: Pt completed functional mobility with BUE support on RW. Cues for sequencing, tech, and safety. Pt deferred further mobility d/t fatigue. Balance Sitting Balance: Static: Good Sitting Balance: Dynamic: Fair Standing Balance: Static: Fair Standing Balance: Dynamic: Fair Other: Pt sat unsupported at sink 12-15 mins for ADL tasks. Pt intermittently leaning in/out of BOSseated with ability to return to midline. Pt mildly unsteady throughout with no major LOB noted. Activity Tolerance Endurance: Tolerates >30 minutes activity with rest breaks Other: Pt pleasant and cooperative. Increased time for all tasks and cues for attention to task. 11/27/23 0845 UE ROM Scapular retraction x Shoulder horizontal abduction/adduction x Elbow flexion/extension x Other BUE AROM Repetitions x15 Plan Occupational Therapy Care Plan Occupational Therapy Care Plan (Active) Template: OT - Occupational Therapy Problem: Activity Tolerance Dates: Start: 11/25/23 Disciplines: OT Goal: No limitations to activity tolerance Dates: Start: 11/25/23 Expected End: 12/18/23 Description: Goal Description: Disciplines: OT Outcomes Date/Time User Outcome 11/27/23 1023 KAJAL Kay Progressing Problem: Bed Mobility Dates: Start: 11/25/23 Disciplines: OT Goal: Patient will perform bed mobility with Modified [place] Dates: Start: 11/25/23 Expected End: 12/18/23 Description: Goal Description: Disciplines: OT Problem: Functional Mobility Dates: Start: 11/25/23 Disciplines: OT Goal: Patient will perform functional mobility with Modified [place] Dates: Start: 11/25/23 Expected End: 12/18/23 Description: Goal Description: Disciplines: OT Outcomes Date/Time User Outcome 11/27/23 KAJAL Zapata Progressing Problem: Other (Customize) Dates: Start: 11/25/23 Disciplines: OT Goal: Improve Dates: Start: 11/25/23 Expected End: 12/18/23 Description: Pt will complete all areas of ADL Tasks at Mod I with use of DME as needed and good safety awareness Disciplines: OT Outcomes Date/Time User Outcome 11/27/23 KAJAL Zapata Progressing Problem: Sitting Balance Dates: Start: 11/25/23 Disciplines: OT Goal: Improve balance to normal Dates: Start: 11/25/23 Expected End: 12/18/23 Description: Static Dynamic Disciplines: OT Outcomes Date/Time User Outcome 11/27/23 KAJAL Zapata Progressing Problem: Standing Balance Dates: Start: 11/25/23 Disciplines: OT Goal: Improve balance to good Dates: Start: 11/25/23 Expected End: 12/18/23 Description: Static Dynamic Disciplines: OT Outcomes Date/Time User Outcome 11/27/23 KAJAL Zapata Progressing Problem: Strength Dates: Start: 11/25/23 Disciplines: OT Goal: Improve strength Dates: Start: 11/25/23 Expected End: 12/18/23 Description: Pt will tolerate BUE HEP to progress stamina to care for self Disciplines: OT Outcomes Date/Time User Outcome 11/27/23 KAJAL Zapata Progressing Problem: Transfers Dates: Start: 11/25/23 Disciplines: OT Goal: Patient will perform transfers with Modified [place] Dates: Start: 11/25/23 Expected End: 12/18/23 Description: Goal Description: Disciplines: OT Outcomes Date/Time User Outcome 11/27/23 KAJAL Zapata Progressing Occupational Therapy Care Plan (Resolved) There are no resolved problems. Principal Problem: Bile leak Cosigned by JN Holley at 11/27/2023 2:57 PM EDT Associated attestation - Yvonne Escoto OTR/L - 11/27/2023 2:57 PM EDT I have reviewed and agree with this note and education documentation for this visit. * PT/OT/NUTRITION CONSULTANT - Mert Cameron PTA - 11/27/2023 11:08 AM EDT Physical Therapy Treatment Discharge Recommendations PT Recommendations: Home Home Recommendations: 24 hour caregiver support for: (ADLs and mobiltiy) Post Discharge Therapy Recommendations: Home Physical Therapy 6 Clicks: Basic Mobility Turning from your back to your side while in a flat bed without using bed rails?: A little Moving from lying on your back to sitting on side of flat bed without using bed rails?: A little Moving to and from bed to a chair (including w/c)?: A little Standing up from a chair using your arms (e.g. w/c or bedside chair)?: A little To walk in hospital room?: A little Climbing 3-5 steps with a railing?: A little Scoring 6 Clicks: Basic Mobility Raw Score: 18 CMS G Code Modifier: CK Therapy Plan PT Treatment/Interventions: Functional transfer training, UE strengthening/ROM, LE strengthening/ROM, Endurance training, Patient/family training, Equipment eval/education, Balance, Bed mobility, Gait training, Functional activities PT Frequency: 4-5days/week PT Duration: LOS Patient Response to Treatment: Progressing toward goals Assessment Patient Assessment Therapy Problem List: Decreased ADL status, Decreased balance, Decreased cognition, Decreased endurance, Decreased fine motor, Decreased gross motor, Decreased high-level ADLs, Decreased mobility, Decreased safe judgement during ADL, Decreased self-care trans, Decreased UE strength Patient Response to Treatment: Progressing toward goals Mood/Affect: Appropriate for circumstances Rehab Prognosis: Good, With continued PT status post acute discharge Visit RN Communication: Yes Medical Record Reviewed: Yes PT Type of Visit: Treatment Precautions Activity: Okay to see per RN Equipment: gait belt, RW Telemetry/Kitchenwhere Maker: Yes Oxygen Used: room air Other: fall risk Pain Assessment Pain Assessment: No/denies pain Bed Mobility Other: NT. Pt seated in chair pre/post tx w/ call light in reach, and all needs met Transfers Sit to Stand: Contact guard assist Stand to Sit: Contact guard assist Other: Cues required for safe hand placement and technique - good carryover. CGA for safety Gait Base of Support: Wide Pattern: Decreased annita, R Decreased heel strike, L Decreased heel strike, Forward trunk Gait Assistance: Contact guard assist Assistive Device: Rolling walker Gait Distance: 15' x2 Limiting Factors to Gait: Fatigue, Weakness 2 Turns: Yes Other: Pt ambulated 15' x2 in room, taking a seated break between distances. Pt demos slow annita w/ short step length and mildly trails RW. CGA for safety w/ cues given for pacing and to improve posture - fair carryover. Pt deferred further ambulation d/t fatigue Balance Sitting Balance: Static: Good Sitting Balance: Dynamic: Fair Standing Balance: Static: Fair Standing Balance: Dynamic: Fair Other: Pt sat unsupported on shower chair 12-15 min to improve endurance and trunk control and to perform ADLs. Pt occasionally mildly unsteady when standing and ambulating d/t fatigue but no LOB Activity Tolerance Endurance: Tolerates >30 minutes activity with rest breaks Other: Fair tolerance to activity, limited by fatigue and weakness. Rest breaks taken as needed 11/27/23 0844 LE Seated LE seated exercises performed? Yes Ankle pumps x Long arc quads x Seated marching x Other BLE AROM performed while seated in chair to improve strength and function. Cues given for technique and pacing Repetitions 15 Plan Physical Therapy Care Plan Physical Therapy Care Plan (Active) Template: PT - Physical Therapy Problem: Activity Tolerance Dates: Start: 11/25/23 Disciplines: PT Goal: Tolerate 30 minutes of activity WITH rest breaks Dates: Start: 11/25/23 Expected End: 12/23/23 Description: Goal Description: patient to tolerate 15-20 reps HEP for B LE strengthening Disciplines: PT Outcomes Date/Time User Outcome 11/27/23 1023 Mert Cameron PTA Progressing Goal Note filed on 11/27/23 1023 by Mert Cameron PTA Evaluation of progress towards goal: Problem: Bed Mobility Dates: Start: 11/25/23 Disciplines: PT Goal: Patient will perform bed mobility with Stand By Assist Dates: Start: 11/25/23 Expected End: 12/23/23 Description: Goal Description: Disciplines: PT Problem: Gait Dates: Start: 11/25/23 Disciplines: PT Goal: Patient will perform gait with Stand By Assist Dates: Start: 11/25/23 Expected End: 12/23/23 Description: With___RW_,___150_feet Goal Description: Disciplines: PT Outcomes Date/Time User Outcome 11/27/23 1023 Mert Cameron PTA Not Progressing Goal Note filed on 11/27/23 1023 by Mert Cameron PTA Evaluation of progress towards goal: Problem: Standing Balance Dates: Start: 11/25/23 Disciplines: PT Goal: Improve balance to good Dates: Start: 11/25/23 Expected End: 12/23/23 Description: Static: Fair+/Good- with 1 UE support Dynamic: Fair/Fair+ with 1 UE support Disciplines: PT Outcomes Date/Time User Outcome 11/27/23 1023 Mert Cameron PTA Progressing Goal Note filed on 11/27/23 1023 by Mert Cameron PTA Evaluation of progress towards goal: Problem: Transfers Dates: Start: 11/25/23 Disciplines: PT Goal: Patient will perform transfers with Stand By Assist Dates: Start: 11/25/23 Expected End: 12/23/23 Description: Goal Description: stand pivot technique with RW Disciplines: PT Outcomes Date/Time User Outcome 11/27/23 1023 Mert Cameron PTA Progressing Goal Note filed on 11/27/23 1023 by Mert Cameron PTA Evaluation of progress towards goal: Physical Therapy Care Plan (Resolved) There are no resolved problems. Principal Problem: Bile leak Cosigned by Ignacia Arellano PT at 11/27/2023 2:45 PM EDT Associated attestation - Ignacia Arellano, PT - 11/27/2023 2:45 PM EDT I have reviewed and agree with this note and education documentation for this visit. * Plan of Care - Cleo Rizvi RN - 11/27/2023 12:07 AM EDT Problem: Pain Goal: Patient goal is pain score less than 4, able to rest, and participant in treatment plan as appropriate Description: INTERVENTIONS: 1. Encourage patient or legal account retention representative to report early pain and ask for pain medicine when needed 2. Assess pain using appropriate pain scale and include the scale used when documenting 3. Administer analgesics based on type and severity of pain and evaluate response within appropriate time frame 4. Implement non-pharmacological measures as appropriate and evaluate response 5. Consider cultural and social influences on pain and pain management 6. Notify LIP if interventions ineffective or patient reports new pain 7. Monitor vital signs including pulse ox, end-tidal CO2 based on pain intervention 8. Reassess pain per policy 9. Teach patient or legal account retention representative interventions for comforting Outcome: Progressing Note: Evaluation of progress towards goal: pt denies pain this shift Problem: Safety Goal: Patient will be injury free during hospitalization Description: INTERVENTIONS: 1. Assess patient's risk for falls and implement fall prevention plan of care per policy 2. Provide and maintain a safe environment 3. Proper use of double Identifiers 4. Medication administration using the 5 rights 5. Hand hygiene 6. Specimens are labeled at the bedside 7. Instruct patient/ patient account retention representative about use of safety devices 8. Include patient/ patient account retention representative in decisions related to safety Outcome: Progressing Note: Evaluation of progress towards goal: pt calls appropriately, interventions in place Problem: Infection Goal: Absence of infection during hospitalization Description: Interventions: 1. Assess and monitor for signs and symptoms of infection 2. Monitor lab/diagnostic results 3. Monitor all insertion sites i.e., indwelling lines, tubes and drains 4. Monitor endotracheal (as able) and nasal secretions for changes in amount and color 5. Administer medications as ordered 6. Instruct and encourage patient and family to use good hand hygiene technique 7. Identify and instruct patient/patient account retention representative in use of appropriate isolation precautionsfor identified infection/symptoms 8. Provide and discuss with patient/patient account retention representative on educational MDRO sheet 9. Encourage and monitor nutritional status daily and consult production foreman if indicated 10. Implement neutropenic guidelines as needed 11. Review exposure to history of communicable disease and recent travel history on admission 12. Encourage annual influenza vaccine 13. Encourage pneumonia vaccine Outcome: Progressing Note: Evaluation of progress towards goal: no current symptoms of infection, surgical areas healingappropriately Problem: Moderate - High Risk Fall Score Description: Cha Fall Score of =/> 25 or indicated by [facility] Assessment Goal: Patient should be free from fall Description: Interventions: 1. [place] to environment 2. Hourly rounds addressing the 4 P's (Pain, Positioning, Possessions, Potty) 3. Clear area of hazards (spills, clutter, electrical cords, unnecessary equipment) 4. Place equipment (bed & TV controls, call light, phone, urinal) within reach 5. Encourage patient to wear glasses and hearing aides as appropriate 6. Maintain bed in lowest position 7. Lock wheels on bed/wheelchair 8. Provide adequate lighting, including night light 9. Assess need for additional bedding, food/fluids, pain med's prior to sleep/routinely 10. Provide gripper slippers or personal non-skid footwear 11. Teach patient and patient account retention representative to maintain environment for safety and engage in all aspects of fall prevention program 12. Remind patient to call for help before getting out of bed 13. Initiate bed/chair/exit alarms supportive devices as appropriate, (chair wedge, no-skid floor mat, raised edge mattress, hip protectors) 14. Locate patient bed assignment for optimal visualization 15. Evaluate and identify Safe Patient Handling Equipment needs 16. Provide supervision when out of bed or chair 17. Utilize gait belt as needed to assist with ambulation 18. Place adaptive equipment (cane, walker) within reach 19. Request patient account retention representative bring adaptive equipment/mobility aids from home or obtain and provide as needed 20. Consult pharmacy regarding effects of med's affecting mobility, cognition, and alternatives 21. Obtain physician order for PT if risk factors associated with mobility are present 22. Obtain physician order for OT as appropriate 23. Utilize diversional activities 24. Educate patient and patient account retention representative how to maintain a safe environment during visitationtimes (notify nurse prior to leaving bedside) 25. Consider appropriateness of medical or non-medical geneticist 26. Set up voiding schedule as appropriate (every 2 hours) Outcome: Progressing Note: Evaluation of progress towards goal: no falls, fall interventions in place * Plan of Care - Ai Salvador RN - 11/26/2023 6:14 PM EDT Problem: Pain Goal: Patient goal is pain score less than 4, able to rest, and participant in treatment plan as appropriate Description: INTERVENTIONS: 1. Encourage patient or legal account retention representative to report early pain and ask for pain medicine when needed 2. Assess pain using appropriate pain scale and include the scale used when documenting 3. Administer analgesics based on type and severity of pain and evaluate response within appropriate time frame 4. Implement non-pharmacological measures as appropriate and evaluate response 5. Consider cultural and social influences on pain and pain management 6. Notify LIP if interventions ineffective or patient reports new pain 7. Monitor vital signs including pulse ox, end-tidal CO2 based on pain intervention 8. Reassess pain per policy 9. Teach patient or legal account retention representative interventions for comforting Outcome: Progressing Note: Evaluation of progress towards goal: Medicated for pain as needed will continue to monitor Problem: Safety Goal: Patient will be injury free during hospitalization Description: INTERVENTIONS: 1. Assess patient's risk for falls and implement fall prevention plan of care per policy 2. Provide and maintain a safe environment 3. Proper use of double Identifiers 4. Medication administration using the 5 rights 5. Hand hygiene 6. Specimens are labeled at the bedside 7. Instruct patient/ patient account retention representative about use of safety devices 8. Include patient/ patient account retention representative in decisions related to safety Outcome: Progressing Note: Evaluation of progress towards goal: Bed low, locked, call light in reach. Will continue to monitor Problem: Infection Goal: Absence of infection during hospitalization Description: Interventions: 1. Assess and monitor for signs and symptoms of infection 2. Monitor lab/diagnostic results 3. Monitor all insertion sites i.e., indwelling lines, tubes and drains 5. Administer medications as ordered 6. Instruct and encourage patient and family to use good hand hygiene technique 11. Review exposure to history of communicable disease and recent travel history on admission 12. Encourage annual influenza vaccine 13. Encourage pneumonia vaccine Outcome: Progressing Note: Evaluation of progress towards goal: Patient remains free from infection, will continue to monitor Problem: Knowledge Deficit Goal: Patient/patient account retention representative demonstrates understanding of disease process, treatment plan,medications, and discharge instructions Description: INTERVENTIONS 1. Complete learning assessment and assess knowledge base 2. Provide teaching at level of understanding 3. Provide teaching via preferred learning method(s) Outcome: Progressing Note: Evaluation of progress towards goal: Patient was included in daily plan of care. Problem: Discharge Planning Goal: Discharge to post-acute care, other facility, or home with appropriate resources Description: Patient's goal is: INTERVENTIONS 1. Conduct assessment to determine patient/family and health care team treatment goals, and need for post-acute services based on payer coverage, community resources, and patient preferences, and barriers to discharge 2. Coordinate with Social work, Care Navigation, and Utilization Review to arrange appropriate level of services according to patient's needs based on patient preference and payer coverage in collaboration with the physician and health care team 3. Address psychosocial, clinical, and financial barriers to discharge as identified in assessment in conjunction with the patient/family and health care team 4. Consult appropriate ancillary services (i.e.. PT/OT/ST, etc) as needed 5. Communicate with and update the patient/family, physician, and health care team regarding progress on the discharge plan 6. Identify discharge learning needs (meds, wound care, etc). 7. Arrange for needed discharge transportation as appropriate Outcome: Progressing Note: Evaluation of progress towards goal: Progressing towards discharge Problem: Glucose Imbalance Goal: Clinical indication of glucose balance is achieved Description: Patient's goal is: INTERVENTIONS 1. Monitor blood glucose levels as ordered 2. Administer medications as ordered 3. Notify physician of ineffective treatment plan Outcome: Progressing Note: Evaluation of progress towards goal: Pts glucose levels are being monitored and treated as needed Goal: Patient's discharge needs are met Description: Patient's goal is: INTERVENTIONS 1. Assess patient for self-management skills 2. Encourage participation in diabetes management 3. Identify potential discharge barriers on admission and throughout hospital stay 4. Involve patient/S.O. in discharge planning process 5. Communicate referral to chemical educator as appropriate 6. Communicate referral to production foreman as appropriate 7. Collaborate with case management/forensic social worker for discharge needs Outcome: Progressing Note: Evaluation of progress towards goal: Discharge needs will be discussed with pt and met beforedischarge. Problem: Moderate - High Risk Fall Score Description: Cha Fall Score of =/> 25 or indicated by [facility] Assessment Goal: Patient should be free from fall Description: Interventions: 1. [place] to environment 2. Hourly rounds addressing the 4 P's (Pain, Positioning, Possessions, Potty) 3. Clear area of hazards (spills, clutter, electrical cords, unnecessary equipment) 4. Place equipment (bed & TV controls, call light, phone, urinal) within reach 5. Encourage patient to wear glasses and hearing aides as appropriate 6. Maintain bed in lowest position 7. Lock wheels on bed/wheelchair 8. Provide adequate lighting, including night light 9. Assess need for additional bedding, food/fluids, pain med's prior to sleep/routinely 10. Provide gripper slippers or personal non-skid footwear 11. Teach patient and patient account retention representative to maintain environment for safety and engage in all aspects of fall prevention program 12. Remind patient to call for help before getting out of bed 15. Evaluate and identify Safe Patient Handling Equipment needs 16. Provide supervision when out of bed or chair 18. Place adaptive equipment (cane, walker) within reach 20. Consult pharmacy regarding effects of med's affecting mobility, cognition, and alternatives 21. Obtain physician order for PT if risk factors associated with mobility are present 22. Obtain physician order for OT as appropriate 24. Educate patient and patient account retention representative how to maintain a safe environment during visitationtimes (notify nurse prior to leaving bedside) Outcome: Progressing Note: Evaluation of progress towards goal: Patient remains free from falls * PT/OT/NUTRITION CONSULTANT - KAJAL Kay - 11/26/2023 10:13 AM EDT Occupational Therapy (P) CANCEL - Deferred (Pt off floor for procedure. Will continue POC as able/appropriate.) Cosigned by Aleksandra Samaniego OT/Char at 11/26/2023 12:44 PM EDT Associated attestation - Aleksandra Samaniego OT/Char - 11/26/2023 12:44 PM EDT I have reviewed and agree with this note and education documentation for this visit. * PT/OT/NUTRITION CONSULTANT - Mert Cameron PTA - 11/26/2023 10:09 AM EDT Physical Therapy (P) CANCEL - Deferred (Pt off floor for procedure) Continue POC as able Cosigned by Ignacia Arellano PT at 11/26/2023 12:33 PM EDT Associated attestation - Ignacia Arellano, PT - 11/26/2023 12:33 PM EDT I have reviewed and agree with this note and education documentation for this visit. * Discharge instr - Endo Pulm - Rafael Patricia MD - 11/26/2023 9:32 AM EDT Patient Instructions after an ERCPPatient: Boo Capps Date: November 254Attending MD: RAFAEL PATRICIA MD1. Do Not eat or drink anything for 1 hour. Trysips of water first. If tolerated, resume your regular diet or one recommended by your physician.2. Do not drive, operate machinery, make criticaldecisions, or do activities that require coordination or balance for 24 hours.3. You may experiencea sore throat for 24 to 48 hours. You may use throat lozenges or gargle with warm salt water to relieve the discomfort.4. Because air was put into your stomach during the procedure, you may experience some belching.5. Go directly to the emergency room if you notice any of the following: Chills and/or fever over 101 Persistent vomiting or vomiting with blood/nasal regurgitaiton Severe abdominal pain, other than gas cramps Severe chest pain Black, tarry stoolsYour doctor recommends these additional instructions:Take a clear liquid diet.Your impressions for this procedure:- A bile leak was found from the cystic duct/gallbladder remnant. - A biliary sphincterotomy was performed. - The biliary tree was swept and nothing was found. - One covered metal stent was placed into the common bile duct.We encourage all patients to report any concerns regarding care, treatment, services or any patient safety issues. Please contact the Nurse Water Systems Engineer at [phone] or in writing to [address] [facility], [address].Dr. Rafael PATRICIA MD11/26/2023 12:14:25 PMThis report has been signed electronically. * Plan of Care - Heiid Cortez RN - 11/26/2023 12:25 AM EDT Problem: Safety Goal: Patient will be injury free during hospitalization Description: INTERVENTIONS: 1. Assess patient's risk for falls and implement fall prevention plan of care per policy 2. Provide and maintain a safe environment 3. Proper use of double Identifiers 4. Medication administration using the 5 rights 5. Hand hygiene 6. Specimens are labeled at the bedside 7. Instruct patient/ patient account retention representative about use of safety devices 8. Include patient/ patient account retention representative in decisions related to safety Outcome: Progressing Note: Evaluation of progress towards goal: NEEDS REINFORCEMENT ON SAFETY. NO FALL OR INJURY Problem: Infection Goal: Absence of infection during hospitalization Description: Interventions: 1. Assess and monitor for signs and symptoms of infection 2. Monitor lab/diagnostic results 3. Monitor all insertion sites i.e., indwelling lines, tubes and drains 4. Monitor endotracheal (as able) and nasal secretions for changes in amount and color 5. Administer medications as ordered 6. Instruct and encourage patient and family to use good hand hygiene technique 7. Identify and instruct patient/patient account retention representative in use of appropriate isolation precautionsfor identified infection/symptoms 8. Provide and discuss with patient/patient account retention representative on educational MDRO sheet 9. Encourage and monitor nutritional status daily and consult production foreman if indicated 10. Implement neutropenic guidelines as needed 11. Review exposure to history of communicable disease and recent travel history on admission 12. Encourage annual influenza vaccine 13. Encourage pneumonia vaccine Outcome: Progressing Note: Evaluation of progress towards goal: afebrile, no signs of infection * PT/OT/NUTRITION CONSULTANT - ALEXANDRIA Sol - 11/25/2023 12:29 PM EDT Occupational Therapy Evaluation Discharge Recommendations OT Recommendations : Home Home Recommendations: 24 hour caregiver support for: (ADL and home tasks from spouse and HHC) Post Discharge Therapy Recommendations: Home Occupational Therapy Therapy Plan Need for skilled Occupational Therapy to address deficits in ADL independence and functional mobility due to a status decline resulting from admission on 11/25/23, Patient initially presented to outside hospital ED with abdominal pain 11/20/2023. He has been having difficulty with eating subsequentto abdominal pain for several months. 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 Patient was taken to the OR 11/23/2023, laparoscopic subtotal cholecystectomy with drainage of gallbladder abscess was performed. There was an intraoperative EGD to assess for cholecystoduodenal fistula, which appeared to be absent at the time. Drain was left in place, which currently has bilious output. GI consulted for further work up Diagnosed with bile leak Pt lives with spouse and was fairly independent at baseline 6 Clicks: Daily Activity Putting on and taking off regular lower body clothing?: A little Bathing (including washing, rinsing, drying)?: A little Toileting, which includes using toilet, bedpan or urinal?: A little Putting on and taking off regular upper body clothing?: A little Taking care of personal grooming such as brushing teeth?: A little Eating meals?: None Scoring Daily Activity Raw Score: 19 CMS G Code Modifier: CK Past Medical History: Diagnosis Date Anxiety Bile leak 11/25/2023 Chronic back pain Depression Diabetes mellitus type 2, controlled ([facility]) GERD (gastroesophageal reflux disease) Migraines Visual impairment Past Surgical History: Procedure Laterality Date DAVINCI CHOLECYSTECTOMY N/A 11/23/2023 Performed by Anahy Cooper MD at [facility] No chief complaint on file. OT Treatment/Interventions: ADL retraining, Functional transfer training, UE strengthening/ROM, Endurance training, Patient/family training, Balance, Bed mobility, Compensatory technique education, Functional activities OT Frequency: 4-5days/week OT Duration: LOS Assessment Patient Assessment Therapy Problem List: Decreased ADL status, Decreased balance, Decreased cognition, Decreased endurance, Decreased fine motor, Decreased gross motor, Decreased high-level ADLs, Decreased mobility, Decreased safe judgement during ADL, Decreased self-care trans, Decreased UE strength Patient Response to Treatment: Tolerated evaluation without adverse reaction Mood/Affect: Appropriate for circumstances Rehab Prognosis: Good, With continued OT status post acute discharge Visit RN Communication: Yes Medical Record Reviewed: Yes OT Type of Visit: Evaluation Precautions Activity: pass early mobility Equipment: RW, gait belt, IV, CLAUDIO drain Telemetry/Kitchenwhere Maker: Yes Oxygen Used: room air Other: fall risk Pain Assessment Pain Assessment: No/denies pain Home Living Type of Home: Apartment Home Layout: (3rd level) Stairs to Enter: elevator Bathroom Shower/Tub: Tub/shower unit Bathroom Toilet: Standard Home Equipment: (no dme) Prior Function Lives With: Spouse Receives Help From: Home health (HHC aide assist with transportation and money as needed) Level of Mobility: Independent with ADLs and functional transfers or gait Homemaking Assistance: (assist spouse) ADL / IADL Hand Dominance: Right Eating Assistance: (NPO - physically able to complete) Grooming Assistance: Setup Bathing/Showering Assistance: Contact guard assist Toilet/Commode Assistance: Contact guard assist UE Dressing Assistance: Contact guard assist LE Dressing Assistance: Contact guard assist Other: use of RW for support with moiblity and ADL tasks Home Management - IADL Other: use of RW for support with moiblity and ADL tasks Hearing / Speech / Vision Hearing: Within Functional Limits Speech: Within Functional Limits Current Vision: Wears glasses all the time Cognition Overall Cognitive Status: (likely at baseline) Sensation Overall Sensation Status: Consistent with premorbid status (BLE numbness) Bed Mobility Other: up in recliner at start and end of session with call light Transfers Sit to Stand: Contact guard assist Stand to Sit: Contact guard assist Other: cues to hand placement and safety with RW Gait Gait Assistance: Contact guard assist Assistive Device: Rolling walker Gait Distance: 60' x 2 Balance Sitting Balance: Static: Good Sitting Balance: Dynamic: Fair Standing Balance: Static: Fair Standing Balance: Dynamic: Fair Other: BUE support on RW RUE Assessment: Within Functional Limits LUE Assessment: Within Functional Limits Activity Tolerance Endurance: Tolerates <30 minutes activity WITHOUT vital sign changes Other: tolerated well Plan Occupational Therapy Care Plan Occupational Therapy Care Plan (Active) Template: OT - Occupational Therapy Problem: Activity Tolerance Dates: Start: 11/25/23 Disciplines: OT Goal: No limitations to activity tolerance Dates: Start: 11/25/23 Expected End: 12/18/23 Description: Goal Description: Disciplines: OT Problem: Bed Mobility Dates: Start: 11/25/23 Disciplines: OT Goal: Patient will perform bed mobility with Modified [place] Dates: Start: 11/25/23 Expected End: 12/18/23 Description: Goal Description: Disciplines: OT Problem: Functional Mobility Dates: Start: 11/25/23 Disciplines: OT Goal: Patient will perform functional mobility with Modified [place] Dates: Start: 11/25/23 Expected End: 12/18/23 Description: Goal Description: Disciplines: OT Problem: Other (Customize) Dates: Start: 11/25/23 Disciplines: OT Goal: Improve Dates: Start: 11/25/23 Expected End: 12/18/23 Description: Pt will complete all areas of ADL Tasks at Mod I with use of DME as needed and good safety awareness Disciplines: OT Problem: Sitting Balance Dates: Start: 11/25/23 Disciplines: OT Goal: Improve balance to normal Dates: Start: 11/25/23 Expected End: 12/18/23 Description: Static Dynamic Disciplines: OT Problem: Standing Balance Dates: Start: 11/25/23 Disciplines: OT Goal: Improve balance to good Dates: Start: 11/25/23 Expected End: 12/18/23 Description: Static Dynamic Disciplines: OT Problem: Strength Dates: Start: 11/25/23 Disciplines: OT Goal: Improve strength Dates: Start: 11/25/23 Expected End: 12/18/23 Description: Pt will tolerate BUE HEP to progress stamina to care for self Disciplines: OT Problem: Transfers Dates: Start: 11/25/23 Disciplines: OT Goal: Patient will perform transfers with Modified [place] Dates: Start: 11/25/23 Expected End: 12/18/23 Description: Goal Description: Disciplines: OT Occupational Therapy Care Plan (Resolved) There are no resolved problems. Principal Problem: Bile leak * PT/OT/NUTRITION CONSULTANT - Loreta Solomon PT - 11/25/2023 11:55 AM EDT Physical Therapy Evaluation Discharge Recommendations PT Recommendations: Home Home Recommendations: 24 hour caregiver support for: (transportation, home mangement) Post Discharge Therapy Recommendations: Home Physical Therapy Hair Spinner Support for-: Mobility Deficits, ADL Deficits Mobility Limitation That Significantly Impairs Participation In: Toileting, Bathing within their home (recommend two wheeled walker for improved safety) Required Rationale For Walker: Cane will not resolve. Uses walker safely to mitigate the deficiency. Wheels Added To Aid With:: improved stability wtih gait 6 Clicks: Basic Mobility Turning from your back to your side while in a flat bed without using bed rails?: A little Moving from lying on your back to sitting on side of flat bed without using bed rails?: A little Moving to and from bed to a chair (including w/c)?: A little Standing up from a chair using your arms (e.g. w/c or bedside chair)?: A little To walk in hospital room?: A little Climbing 3-5 steps with a railing?: A little Scoring 6 Clicks: Basic Mobility Raw Score: 18 CMS G Code Modifier: CK Therapy Plan Need for skilled Physical Therapy to address deficits in functional mobility due to a status decline resulting from debility related to bile leak. Patient is a 63 year old male who presented to OSH 11/20/23 with abdominal pain that had waxed/waned for last several months. 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 11/23/23 went to OR and found gangrenous cholecystitis and questionable abscess with drain placement. POD 1 developed increasedabd pain and drainage with concern for bile leak. Patient transferred to [facility] 11/25/23 for GI work up. Past Medical History: Diagnosis Date Anxiety Bile leak 11/25/2023 Chronic back pain Depression Diabetes mellitus type 2, controlled (CMS-[facility]) GERD (gastroesophageal reflux disease) Migraines Visual impairment Past Surgical History: Procedure Laterality Date DAVINCI CHOLECYSTECTOMY N/A 11/23/2023 Performed by Anahy Cooper MD at [facility] PT Treatment/Interventions: Functional transfer training, UE strengthening/ROM, LE strengthening/ROM, Endurance training, Patient/family training, Equipment eval/education, Balance, Bed mobility, Gait training, Functional activities PT Frequency: 4-5days/week PT Duration: LOS Patient Response to Treatment: Tolerated evaluation without adverse reaction Assessment Patient Assessment Therapy Problem List: Decreased ADL status, Decreased balance, Decreased endurance, Decreased mobility, Decreased UE strength, Decreased LE strength, Decreased self-care trans Patient Response to Treatment: Tolerated evaluation without adverse reaction Mood/Affect: Appropriate for circumstances Rehab Prognosis: Good, With continued PT status post acute discharge Visit RN Communication: Yes Medical Record Reviewed: Yes PT Type of Visit: Evaluation Precautions Activity: pass early mobility Equipment: RW, gait belt, IV, CLAUDIO drain Telemetry/Kitchenwhere Maker: Yes Oxygen Used: room air Other: fall risk Pain Assessment Pain Assessment: No/denies pain Home Living Type of Home: Apartment (3rd floor; laundry in apartment) Stairs to Enter: elevator Bathroom Shower/Tub: Tub/shower unit Bathroom Toilet: Standard Bathroom Equipment: Other (Comment) (none) Home Equipment: Other (Comment) (Cpap) Other : independent without use of AD prior to admit, no recent falls, does not drive Prior Function Lives With: Spouse Receives Help From: Home health (assists with transportation, some home management; pt unsure of frequency) Level of Mobility: Independent with ADLs and functional transfers or gait Homemaking Assistance: Needs assistance Driving: Total assist Vocational: Retired ([employer] 24 years) Other: pt reports being independent with bathing/dressing; does cooking ADL / IADL Hand Dominance: Right Hearing / Speech / Vision Hearing: Within Functional Limits Speech: Within Functional Limits (slow responses at times) Current Vision: Wears glasses all the time Cognition Orientation Level: Oriented X4 Sensation Overall Sensation Status: Exceptions to Within Functional Limits, Consistent with premorbid status (numbness/tingling in feet- states they get cold ) Bed Mobility Other: NT- patient up in recliner at start and end of session with call light in reach Transfers Sit to Stand: Contact guard assist Stand to Sit: Contact guard assist Other: RW used for sit to stands and transfers with VCs for proper hand placement for improved safety Gait Base of Support: Wide Pattern: Decreased annita, R Decreased heel strike, L Decreased heel strike, Forward trunk Gait Assistance: Contact guard assist Assistive Device: Rolling walker Gait Distance: 60' x 2 2 Turns: Yes Other: VCs to keep body closer to walker and keep RW close when turning to sit down in chair for improved safety and stability Balance Balance Evaluation: Exceptions to Functional Limits Sitting Balance: Static: Good Sitting Balance: Dynamic: Fair (+) Standing Balance: Static: Fair Standing Balance: Dynamic: Fair (-) Other: B UE support on RW, no LOB RLE Assessment: (generalized weakness) LLE Assessment: (generalized weakness) Activity Tolerance Endurance: Tolerates <30 minutes activity WITHOUT vital sign changes Other: rest breaks prn; increased time and effort for completion of sit to stands Plan Physical Therapy Care Plan Physical Therapy Care Plan (Active) Template: PT - Physical Therapy Problem: Activity Tolerance Dates: Start: 11/25/23 Disciplines: PT Goal: Tolerate 30 minutes of activity WITH rest breaks Dates: Start: 11/25/23 Expected End: 12/23/23 Description: Goal Description: patient to tolerate 15-20 reps HEP for B LE strengthening Disciplines: PT Problem: Bed Mobility Dates: Start: 11/25/23 Disciplines: PT Goal: Patient will perform bed mobility with Stand By Assist Dates: Start: 11/25/23 Expected End: 12/23/23 Description: Goal Description: Disciplines: PT Problem: Gait Dates: Start: 11/25/23 Disciplines: PT Goal: Patient will perform gait with Stand By Assist Dates: Start: 11/25/23 Expected End: 12/23/23 Description: With___RW_,___150_feet Goal Description: Disciplines: PT Problem: Standing Balance Dates: Start: 11/25/23 Disciplines: PT Goal: Improve balance to good Dates: Start: 11/25/23 Expected End: 12/23/23 Description: Static: Fair+/Good- with 1 UE support Dynamic: Fair/Fair+ with 1 UE support Disciplines: PT Problem: Transfers Dates: Start: 11/25/23 Disciplines: PT Goal: Patient will perform transfers with Stand By Assist Dates: Start: 11/25/23 Expected End: 12/23/23 Description: Goal Description: stand pivot technique with RW Disciplines: PT Physical Therapy Care Plan (Resolved) There are no resolved problems. Principal Problem: Bile leak * Discharge Planning Note - Maya Woodson RN - 11/25/2023 8:51 AM EDT Images from the original note were not included. DISCHARGE PLANNING NOTE Services Requested: Services Requested Discharge Disposition: Home with home health services Facility/Service Name: [facility] Facility/Service Does the patient need discharge transportation arranged?: Yes Transportation Arranged: [place] Patient choice offered: Patient declined List Provided: Patient declined Patient Declined: Other (must state reason) (had services in the past) Initial DC Assessment Completed: Yes Patient Goals: Patient/Caregiver Goals Patient/Caregiver Goals: Home with Home Assisted with Home Care (Check ALL that Apply): Other (nursing) Goals: Goals home (pt-stated) Evaluation of progress towards goal: Patient plans to discharge home with Home Health Care and withassistance from family. Patient admitted for: bile leak CN spoke with patient at bedside, introduced self and explained role. Patient lives with spouse in a third floor apartment with and elevator to get to his apartment. Patient stated that he has aide services through [facility] that they come out in the morning to assist patient and his spouse and the aidewill also transport patient to places to conduct any business. Patient would like to have [facility] at discharge due to having them in the past and patient is also requesting a rollator. Biodiesel Engine Specialist advised that an inquiry will be completed to [employer] to inquire if patient will qualify for a rollator. Patient stated they are independent with ADL's and currently has a CPAP for DME. Patient endorses no issue financially with being able to obtain medications or food. Patient states that they have working water, gas and electric. [facility] [place] Per patient self report: Drug use: denies ETOH use: denies Smoking: denies PCP added to follow up provider list to receive summary of care at discharge. Based on readmission risk assessment, patient has risk score of 13 for readmission. The following arrangements have been made to help prevent readmission. D/C Plan: Patient plans to discharge home with Home Health Care and with assistance from family. Referral placed on [facility] and [employer]. Patient stated that he will need transportation home. Biodiesel Engine Specialist will continue to follow for any discharge n eeds. - MAYA WOODSON RN 11/25/23 8:57 AM * Plan of Care - Ai Salvador RN - 11/25/2023 7:56 AM EDT Problem: Pain Goal: Patient goal is pain score less than 4, able to rest, and participant in treatment plan as appropriate Description: INTERVENTIONS: 1. Encourage patient or legal account retention representative to report early pain and ask for pain medicine when needed 2. Assess pain using appropriate pain scale and include the scale used when documenting 3. Administer analgesics based on type and severity of pain and evaluate response within appropriate time frame 4. Implement non-pharmacological measures as appropriate and evaluate response 5. Consider cultural and social influences on pain and pain management 6. Notify LIP if interventions ineffective or patient reports new pain 7. Monitor vital signs including pulse ox, end-tidal CO2 based on pain intervention 8. Reassess pain per policy 9. Teach patient or legal account retention representative interventions for comforting Outcome: Progressing Note: Evaluation of progress towards goal: Medicated for pain as needed will continue to monitor Problem: Safety Goal: Patient will be injury free during hospitalization Description: INTERVENTIONS: 1. Assess patient's risk for falls and implement fall prevention plan of care per policy 2. Provide and maintain a safe environment 3. Proper use of double Identifiers 4. Medication administration using the 5 rights 5. Hand hygiene 6. Specimens are labeled at the bedside 7. Instruct patient/ patient account retention representative about use of safety devices 8. Include patient/ patient account retention representative in decisions related to safety Outcome: Progressing Note: Evaluation of progress towards goal: Bed low, locked, call light in reach. Will continue to monitor Problem: Infection Goal: Absence of infection during hospitalization Description: Interventions: 1. Assess and monitor for signs and symptoms of infection 2. Monitor lab/diagnostic results 3. Monitor all insertion sites i.e., indwelling lines, tubes and drains 5. Administer medications as ordered 6. Instruct and encourage patient and family to use good hand hygiene technique 11. Review exposure to history of communicable disease and recent travel history on admission 12. Encourage annual influenza vaccine 13. Encourage pneumonia vaccine Outcome: Progressing Note: Evaluation of progress towards goal: Patient remains free from infection, will continue to monitor Problem: Knowledge Deficit Goal: Patient/patient account retention representative demonstrates understanding of disease process, treatment plan,medications, and discharge instructions Description: INTERVENTIONS 1. Complete learning assessment and assess knowledge base 2. Provide teaching at level of understanding 3. Provide teaching via preferred learning method(s) Outcome: Progressing Note: Evaluation of progress towards goal: Patient was included in daily plan of care. Problem: Discharge Planning Goal: Discharge to post-acute care, other facility, or home with appropriate resources Description: Patient's goal is: INTERVENTIONS 1. Conduct assessment to determine patient/family and health care team treatment goals, and need for post-acute services based on payer coverage, community resources, and patient preferences, and barriers to discharge 2. Coordinate with Social work, Care Navigation, and Utilization Review to arrange appropriate level of services according to patient's needs based on patient preference and payer coverage in collaboration with the physician and health care team 3. Address psychosocial, clinical, and financial barriers to discharge as identified in assessment in conjunction with the patient/family and health care team 4. Consult appropriate ancillary services (i.e.. PT/OT/ST, etc) as needed 5. Communicate with and update the patient/family, physician, and health care team regarding progress on the discharge plan 6. Identify discharge learning needs (meds, wound care, etc). 7. Arrange for needed discharge transportation as appropriate Outcome: Progressing Note: Evaluation of progress towards goal: Progressing towards discharge Problem: Glucose Imbalance Goal: Clinical indication of glucose balance is achieved Description: Patient's goal is: INTERVENTIONS 1. Monitor blood glucose levels as ordered 2. Administer medications as ordered 3. Notify physician of ineffective treatment plan Outcome: Progressing Note: Evaluation of progress towards goal: Pts glucose levels are being monitored and treated as needed Goal: Patient's discharge needs are met Description: Patient's goal is: INTERVENTIONS 1. Assess patient for self-management skills 2. Encourage participation in diabetes management 3. Identify potential discharge barriers on admission and throughout hospital stay 4. Involve patient/S.O. in discharge planning process 5. Communicate referral to chemical educator as appropriate 6. Communicate referral to production foreman as appropriate 7. Collaborate with case management/forensic social worker for discharge needs Outcome: Progressing Note: Evaluation of progress towards goal: Discharge needs will be discussed with pt and met beforedischarge. Problem: Moderate - High Risk Fall Score Description: Cha Fall Score of =/> 25 or indicated by [facility] Assessment Goal: Patient should be free from fall Description: Interventions: 1. [place] to environment 2. Hourly rounds addressing the 4 P's (Pain, Positioning, Possessions, Potty) 3. Clear area of hazards (spills, clutter, electrical cords, unnecessary equipment) 4. Place equipment (bed & TV controls, call light, phone, urinal) within reach 5. Encourage patient to wear glasses and hearing aides as appropriate 6. Maintain bed in lowest position 7. Lock wheels on bed/wheelchair 8. Provide adequate lighting, including night light 9. Assess need for additional bedding, food/fluids, pain med's prior to sleep/routinely 10. Provide gripper slippers or personal non-skid footwear 11. Teach patient and patient account retention representative to maintain environment for safety and engage in all aspects of fall prevention program 12. Remind patient to call for help before getting out of bed 15. Evaluate and identify Safe Patient Handling Equipment needs 16. Provide supervision when out of bed or chair 18. Place adaptive equipment (cane, walker) within reach 19. Request patient account retention representative bring adaptive equipment/mobility aids from home or obtain and provide as needed 20. Consult pharmacy regarding effects of med's affecting mobility, cognition, and alternatives 21. Obtain physician order for PT if risk factors associated with mobility are present 22. Obtain physician order for OT as appropriate 24. Educate patient and patient account retention representative how to maintain a safe environment during visitationtimes (notify nurse prior to leaving bedside) Outcome: Progressing Note: Evaluation of progress towards goal: Patient remains free from falls * Plan of Care - Julieta Lindquist RN - 11/25/2023 2:50 AM EDT Problem: Pain Goal: Patient goal is pain score less than 4, able to rest, and participant in treatment plan as appropriate Description: INTERVENTIONS: 1. Encourage patient or legal account retention representative to report early pain and ask for pain medicine when needed 2. Assess pain using appropriate pain scale and include the scale used when documenting 3. Administer analgesics based on type and severity of pain and evaluate response within appropriate time frame 4. Implement non-pharmacological measures as appropriate and evaluate response 5. Consider cultural and social influences on pain and pain management 6. Notify LIP if interventions ineffective or patient reports new pain 7. Monitor vital signs including pulse ox, end-tidal CO2 based on pain intervention 8. Reassess pain per policy 9. Teach patient or legal account retention representative interventions for comforting Outcome: Progressing Note: Evaluation of progress towards goal: Pt verbalizes pain appropriately using numerical pain scale. PRN medications available. Monitoring Problem: Safety Goal: Patient will be injury free during hospitalization Description: INTERVENTIONS: 1. Assess patient's risk for falls and implement fall prevention plan of care per policy 2. Provide and maintain a safe environment 3. Proper use of double Identifiers 4. Medication administration using the 5 rights 5. Hand hygiene 6. Specimens are labeled at the bedside 7. Instruct patient/ patient account retention representative about use of safety devices 8. Include patient/ patient account retention representative in decisions related to safety Outcome: Progressing Note: Evaluation of progress towards goal: Pt has not fallen on shift. Monitoring Problem: Infection Goal: Absence of infection during hospitalization Description: Interventions: 1. Assess and monitor for signs and symptoms of infection 2. Monitor lab/diagnostic results 3. Monitor all insertion sites i.e., indwelling lines, tubes and drains 4. Monitor endotracheal (as able) and nasal secretions for changes in amount and color 5. Administer medications as ordered 6. Instruct and encourage patient and family to use good hand hygiene technique 7. Identify and instruct patient/patient account retention representative in use of appropriate isolation precautionsfor identified infection/symptoms 8. Provide and discuss with patient/patient account retention representative on educational MDRO sheet 9. Encourage and monitor nutritional status daily and consult production foreman if indicated 10. Implement neutropenic guidelines as needed 11. Review exposure to history of communicable disease and recent travel history on admission 12. Encourage annual influenza vaccine 13. Encourage pneumonia vaccine Outcome: Progressing Note: Evaluation of progress towards goal: VSS, afebrile, daily labs drawn. No S/S of infection. Monitoring Problem: Knowledge Deficit Goal: Patient/patient account retention representative demonstrates understanding of disease process, treatment plan,medications, and discharge instructions Description: INTERVENTIONS 1. Complete learning assessment and assess knowledge base 2. Provide teaching at level of understanding 3. Provide teaching via preferred learning method(s) Outcome: Progressing Note: Evaluation of progress towards goal: Pt educated on POC by RN Problem: Discharge Planning Goal: Discharge to post-acute care, other facility, or home with appropriate resources Description: Patient's goal is: INTERVENTIONS 1. Conduct assessment to determine patient/family and health care team treatment goals, and need for post-acute services based on payer coverage, community resources, and patient preferences, and barriers to discharge 2. Coordinate with Social work, Care Navigation, and Utilization Review to arrange appropriate level of services according to patient's needs based on patient preference and payer coverage in collaboration with the physician and health care team 3. Address psychosocial, clinical, and financial barriers to discharge as identified in assessment in conjunction with the patient/family and health care team 4. Consult appropriate ancillary services (i.e.. PT/OT/ST, etc) as needed 5. Communicate with and update the patient/family, physician, and health care team regarding progress on the discharge plan 6. Identify discharge learning needs (meds, wound care, etc). 7. Arrange for needed discharge transportation as appropriate Outcome: Progressing Note: Evaluation of progress towards goal: D/C planning to home begun on admission Problem: Glucose Imbalance Goal: Clinical indication of glucose balance is achieved Description: Patient's goal is: INTERVENTIONS 1. Monitor blood glucose levels as ordered 2. Administer medications as ordered 3. Notify physician of ineffective treatment plan Outcome: Progressing Note: Evaluation of progress towards goal: Monitoring blood sugar at regular intervals. Administering appropriate medications as needed. Will continue to monitor. Goal: Patient's discharge needs are met Description: Patient's goal is: INTERVENTIONS 1. Assess patient for self-management skills 2. Encourage participation in diabetes management 3. Identify potential discharge barriers on admission and throughout hospital stay 4. Involve patient/S.O. in discharge planning process 5. Communicate referral to chemical educator as appropriate 6. Communicate referral to production foreman as appropriate 7. Collaborate with case management/forensic social worker for discharge needs Outcome: Progressing Note: Evaluation of progress towards goal: Discharge planning discussed daily with [facility] at [facility] Problem: Cardiovascular - Adult Goal: Absence of cardiac dysrhythmias or at baseline Description: INTERVENTIONS: 1. Continuous cardiac monitoring, monitor vital signs, obtain 12 lead EKG as ordered 2. Monitor for therapeutic effect/ side effects and safely 3. Administer antiarrhythmic and heart rate control medications as ordered 3. Initiate emergency measures for life threatening arrhythmias 4. Monitor labs and administer replacement/adjust therapy as ordered Outcome: Progressing Note: Evaluation of progress towards goal: Pt remains on telemetry to monitor cardiac rhythm. Assessing for signs of decreased cardiac output. Will continue to monitor documented in this encounterMer[facility] HospitalStolen Couch Games [id number] Progress note* Discharge Planning Note - Yvonne Cardenas RN - 11/28/2023 9:06 AM EDT DISCHARGE PLANNING NOTE Case and chart reviewed by CN. CRF and discharge orders written by provider, reviewed by CN. Discharge Plan remains: home with [facility]. CRF sent. CN confirmed with [facility] that rollator was delivered to pt's room. CN spoke with pt at bedside to confirm 11 am transport and rollator. CN is available should any further needs arise. - Yvonne Cardenas RN 11/28/23 9:07 AM [employer] Work Phone: [phone] Hospital course Narrative* Javier Salvador MD - 11/28/2023 8:33 AM EDT Inpatient Discharge Summary BRIEF OVERVIEW Admitting Provider: Charlene Smyth MD Discharge Provider: Charlene Smyth MD Primary Care Physician at Discharge: DAVION PRITCHARD MD [phone] Admission Date: 11/25/2023 Discharge Date: No discharge date for patient encounter. Primary Discharge Diagnosis Bile leak after subtotal cholecystectomy s/p ERCP and metal stent placement Discharge Disposition Another Hospital Code Status at Discharge: Full Active Issues Requiring Follow-up Follow up in general surgery clinic, follow up in GI clinic Outpatient Follow-Up No future appointments. Referrals and Follow-ups to Schedule Drain care (specify) Protect CLAUDIO drain from getting wet or dirty. Record output daily. No dressing needed No dressing needed Test Results Pending at Discharge DETAILS OF HOSPITAL STAY Presenting Problem/History of Present Illness Bile leak [K83.9] Preop cardiovascular exam [Z01.810] Hospital Course Boo Capps is a 63 y.o. male who was transferred to [facility] on 11/24 after undergoing subtotal cholecystectomy on 11/22 for gangrenous cholecystitis and found to have a bile leak. Patient underwent ERCP, sphincterotomy, and metal stent placement on 11/25. Patient tolerated the procedure well with tolerance of diet, normal bilirubin, and clearing surgical drain. Patient discharged to home on 11/27 Operative Procedures Performed Procedure(s): ERCP Treatments: IV hydration and antibiotics: ceftriaxone and metronidazole Consults: GI Procedures: ERCP with biliary stent placement Pertinent Test Results: None Physical Exam at Discharge Discharge Condition: good Pulse: 77 Resp: 15 BP: 114/62 Temp: 36.7 C (98 F) Weight: 128.5 kg (283 lb 4.7 oz) General Appearance: Awake, alert, oriented. No acute distress at rest. Eyes: Pupils equally round and reactive to light, extraocular muscles intact, conjunctivae nonicteric Neck: Trachea midline, supple Pulmonary: Clear to auscultation bilaterally, no increased work of breathing at rest. Cardiac: Regular rate and rhythm. Abdomen: Soft, nondistended, appropriately tender to palpation without rebound or guarding. Laparoscopic incisions clean, dry, intact with Steri-Strips and Band-Aids in place. CLAUDIO drain in place with willian bilious output. Extremity: Baseline range of motion, no notable edema of the bilateral upper or lower extremities Skin: Dry. Non-icteric. No Rash. Abdominal incisions as described above Cosigned by Dilip Kaufman MD at 11/28/2023 12:38 PM EDT Associated attestation - Dilip Kaufman MD - 11/28/2023 12:38 PM EDT I reviewed the resident's note and discussed the case with the resident. This specific service willnot be billed. documented in this encounterM[facility] Plan of care note * Plan of Care - Meredith Voss RN - 11/27/2023 10:43 PM EDT Problem: Pain Goal: Patient goal is pain score less than 4, able to rest, and participant in treatment plan as appropriate Description: INTERVENTIONS: 1. Encourage patient or legal account retention representative to report early pain and ask for pain medicine when needed 2. Assess pain using appropriate pain scale and include the scale used when documenting 3. Administer analgesics based on type and severity of pain and evaluate response within appropriate time frame 4. Implement non-pharmacological measures as appropriate and evaluate response 5. Consider cultural and social influences on pain and pain management 6. Notify LIP if interventions ineffective or patient reports new pain 7. Monitor vital signs including pulse ox, end-tidal CO2 based on pain intervention 8. Reassess pain per policy 9. Teach patient or legal account retention representative interventions for comforting Outcome: Progressing Note: Evaluation of progress towards goal: pharmacologic and nonpharmacologic interventions utilized to ease pain. Patient able to rate pain on a scale of 1- 10. Denies any pain at this time. Problem: Safety Goal: Patient will be injury free during hospitalization Description: INTERVENTIONS: 1. Assess patient's risk for falls and implement fall prevention plan of care per policy 2. Provide and maintain a safe environment 3. Proper use of double Identifiers 4. Medication administration using the 5 rights 5. Hand hygiene 6. Specimens are labeled at the bedside 7. Instruct patient/ patient account retention representative about use of safety devices 8. Include patient/ patient account retention representative in decisions related to safety Outcome: Progressing Note: Evaluation of progress towards goal: Patient remains free from falls/injuries. Call light within reach and use is encouraged. Bed in lowest position with wheels locked. Area free from any clutter with adequate lighting. Problem: Infection Goal: Absence of infection during hospitalization Description: Interventions: 1. Assess and monitor for signs and symptoms of infection 2. Monitor lab/diagnostic results 3. Monitor all insertion sites i.e., indwelling lines, tubes and drains 4. Monitor endotracheal (as able) and nasal secretions for changes in amount and color 5. Administer medications as ordered 6. Instruct and encourage patient and family to use good hand hygiene technique 7. Identify and instruct patient/patient account retention representative in use of appropriate isolation precautionsfor identified infection/symptoms 8. Provide and discuss with patient/patient account retention representative on educational MDRO sheet 9. Encourage and monitor nutritional status daily and consult production foreman if indicated 10. Implement neutropenic guidelines as needed 11. Review exposure to history of communicable disease and recent travel history on admission 12. Encourage annual influenza vaccine 13. Encourage pneumonia vaccine Outcome: Progressing Note: Evaluation of progress towards goal: patient is afebrile. Labs and vitals monitored. [place] precautions maintained. Problem: Knowledge Deficit Goal: Patient/patient account retention representative demonstrates understanding of disease process, treatment plan,medications, and discharge instructions Description: INTERVENTIONS 1. Complete learning assessment and assess knowledge base 2. Provide teaching at level of understanding 3. Provide teaching via preferred learning method(s) Outcome: Progressing Note: Evaluation of progress towards goal: Patient updated on plan of care. All questions answered at this time. Verbalizes understanding. Problem: Discharge Planning Goal: Discharge to post-acute care, other facility, or home with appropriate resources Description: Patient's goal is: INTERVENTIONS 1. Conduct assessment to determine patient/family and health care team treatment goals, and need for post-acute services based on payer coverage, community resources, and patient preferences, and barriers to discharge 2. Coordinate with Social work, Care Navigation, and Utilization Review to arrange appropriate level of services according to patient's needs based on patient preference and payer coverage in collaboration with the physician and health care team 3. Address psychosocial, clinical, and financial barriers to discharge as identified in assessment in conjunction with the patient/family and health care team 4. Consult appropriate ancillary services (i.e.. PT/OT/ST, etc) as needed 5. Communicate with and update the patient/family, physician, and health care team regarding progress on the discharge plan 6. Identify discharge learning needs (meds, wound care, etc). 7. Arrange for needed discharge transportation as appropriate Outcome: Progressing Note: Evaluation of progress towards goal: Discharge needs discussed at D[facility]. Will continue to assess. Problem: Glucose Imbalance Goal: Clinical indication of glucose balance is achieved Description: Patient's goal is: INTERVENTIONS 1. Monitor blood glucose levels as ordered 2. Administer medications as ordered 3. Notify physician of ineffective treatment plan Outcome: Progressing Note: Evaluation of progress towards goal: glucose checked per MD order. Insulin given per sliding scale per MD order. Goal: Patient's discharge needs are met Description: Patient's goal is: INTERVENTIONS 1. Assess patient for self-management skills 2. Encourage participation in diabetes management 3. Identify potential discharge barriers on admission and throughout hospital stay 4. Involve patient/S.O. in discharge planning process 5. Communicate referral to chemical educator as appropriate 6. Communicate referral to production foreman as appropriate 7. Collaborate with case management/forensic social worker for discharge needs Outcome: Progressing Note: Evaluation of progress towards goal: progressing [facility]10[facility] Plan of care note* Plan of Care - Ai Salvador RN - 11/27/2023 6:30 PM EDT Problem: Pain Goal: Patient goal is pain score less than 4, able to rest, and participant in treatment plan as appropriate Description: INTERVENTIONS: 1. Encourage patient or legal account retention representative to report early pain and ask for pain medicine when needed 2. Assess pain using appropriate pain scale and include the scale used when documenting 3. Administer analgesics based on type and severity of pain and evaluate response within appropriate time frame 4. Implement non-pharmacological measures as appropriate and evaluate response 5. Consider cultural and social influences on pain and pain management 6. Notify LIP if interventions ineffective or patient reports new pain 7. Monitor vital signs including pulse ox, end-tidal CO2 based on pain intervention 8. Reassess pain per policy 9. Teach patient or legal account retention representative interventions for comforting Outcome: Progressing Note: Evaluation of progress towards goal: Medicated for pain as needed will continue to monitor Problem: Safety Goal: Patient will be injury free during hospitalization Description: INTERVENTIONS: 1. Assess patient's risk for falls and implement fall prevention plan of care per policy 2. Provide and maintain a safe environment 3. Proper use of double Identifiers 4. Medication administration using the 5 rights 5. Hand hygiene 6. Specimens are labeled at the bedside 7. Instruct patient/ patient account retention representative about use of safety devices 8. Include patient/ patient account retention representative in decisions related to safety Outcome: Progressing Note: Evaluation of progress towards goal: Bed low, locked, call light in reach. Will continue to monitor Problem: Infection Goal: Absence of infection during hospitalization Description: Interventions: 1. Assess and monitor for signs and symptoms of infection 2. Monitor lab/diagnostic results 3. Monitor all insertion sites i.e., indwelling lines, tubes and drains 5. Administer medications as ordered 6. Instruct and encourage patient and family to use good hand hygiene technique 11. Review exposure to history of communicable disease and recent travel history on admission 12. Encourage annual influenza vaccine 13. Encourage pneumonia vaccine Outcome: Progressing Note: Evaluation of progress towards goal: Patient remains free from infection, will continue to monitor Problem: Knowledge Deficit Goal: Patient/patient account retention representative demonstrates understanding of disease process, treatment plan,medications, and discharge instructions Description: INTERVENTIONS 1. Complete learning assessment and assess knowledge base 2. Provide teaching at level of understanding 3. Provide teaching via preferred learning method(s) Outcome: Progressing Note: Evaluation of progress towards goal: Patient was included in daily plan of care. Problem: Discharge Planning Goal: Discharge to post-acute care, other facility, or home with appropriate resources Description: Patient's goal is: INTERVENTIONS 1. Conduct assessment to determine patient/family and health care team treatment goals, and need for post-acute services based on payer coverage, community resources, and patient preferences, and barriers to discharge 2. Coordinate with Social work, Care Navigation, and Utilization Review to arrange appropriate level of services according to patient's needs based on patient preference and payer coverage in collaboration with the physician and health care team 3. Address psychosocial, clinical, and financial barriers to discharge as identified in assessment in conjunction with the patient/family and health care team 4. Consult appropriate ancillary services (i.e.. PT/OT/ST, etc) as needed 5. Communicate with and update the patient/family, physician, and health care team regarding progress on the discharge plan 6. Identify discharge learning needs (meds, wound care, etc). 7. Arrange for needed discharge transportation as appropriate Outcome: Progressing Note: Evaluation of progress towards goal: Progressing towards discharge Problem: Glucose Imbalance Goal: Clinical indication of glucose balance is achieved Description: Patient's goal is: INTERVENTIONS 1. Monitor blood glucose levels as ordered 2. Administer medications as ordered 3. Notify physician of ineffective treatment plan Outcome: Progressing Note: Evaluation of progress towards goal: Patient remains free from falls Goal: Patient's discharge needs are met Description: Patient's goal is: INTERVENTIONS 1. Assess patient for self-management skills 2. Encourage participation in diabetes management 3. Identify potential discharge barriers on admission and throughout hospital stay 4. Involve patient/S.O. in discharge planning process 5. Communicate referral to chemical educator as appropriate 6. Communicate referral to production foreman as appropriate 7. Collaborate with case management/forensic social worker for discharge needs Outcome: Progressing Note: Evaluation of progress towards goal: Discharge needs will be discussed with pt and met beforedischarge. Problem: Moderate - High Risk Fall Score Description: Cha Fall Score of =/> 25 or indicated by [facility] Assessment Goal: Patient should be free from fall Description: Interventions: 1. [place] to environment 2. Hourly rounds addressing the 4 P's (Pain, Positioning, Possessions, Potty) 3. Clear area of hazards (spills, clutter, electrical cords, unnecessary equipment) 4. Place equipment (bed & TV controls, call light, phone, urinal) within reach 5. Encourage patient to wear glasses and hearing aides as appropriate 6. Maintain bed in lowest position 7. Lock wheels on bed/wheelchair 8. Provide adequate lighting, including night light 9. Assess need for additional bedding, food/fluids, pain med's prior to sleep/routinely 10. Provide gripper slippers or personal non-skid footwear 11. Teach patient and patient account retention representative to maintain environment for safety and engage in all aspects of fall prevention program 12. Remind patient to call for help before getting out of bed 15. Evaluate and identify Safe Patient Handling Equipment needs 16. Provide supervision when out of bed or chair 19. Request patient account retention representative bring adaptive equipment/mobility aids from home or obtain and provide as needed 20. Consult pharmacy regarding effects of med's affecting mobility, cognition, and alternatives 24. Educate patient and patient account retention representative how to maintain a safe environment during Outcome: Progressing Note: Evaluation of progress towards goal: Patient remains free from falls Oree [id number] Progress note* Discharge Planning Note - Loreto Gusman - 11/27/2023 4:27 PM EDT DISCHARGE PLANNING NOTE [facility] transport via PTN to patient's home 11.28.23 at 11:00am. Spoke with Marilou euceda [facility]. [facility] [id number] History of Present illness Narrative* KEYON Faith - 11/27/2023 3:58 PM EDT NUTRITION ADULT INITIAL EVALUATION NUTRITION ASSESSMENT: Reason to be seen: Database trigger for unplanned weight loss Patient History: Admit Diagnosis: Patient Active Problem List Diagnosis Fistula of gallbladder Bilateral leg edema Gastroesophageal reflux disease without esophagitis Generalized anxiety disorder Memory loss Nonalcoholic fatty liver Obstructive sleep apnea syndrome Stage 3a chronic kidney disease (CKD) [place] Type 2 diabetes mellitus with hyperglycemia, without long-term current use of insulin ([facility] Duodenal fistula Hyperglycemia Bile leak Past Medical History: Past Medical History: Diagnosis Date Anxiety Bile leak 11/25/2023 Chronic back pain Depression Diabetes mellitus type 2, controlled ([facility] GERD (gastroesophageal reflux disease) Migraines Visual impairment Past Surgical History: Past Surgical History: Procedure Laterality Date DAVINCI CHOLECYSTECTOMY N/A 11/23/2023 Performed by Anahy Cooper MD at [facility] ERCP N/A 11/26/2023 Performed by Rafael Patricia MD at [facility] Social/ Cognitive/ Economic: Alert- confused at times Brief Clinical Summary: 63 y/o male admitted with bile leak. PMHx type 2 diabetes, GERD, bile leak,depression, cholecystectomy, ERCP. Biochemical Data, Medical Tests, and Procedures: 11/26- Endoscopy Labs: Results from last 3 days Lab Units 11/27/23 0541 11/26/23 0631 11/25/23 0640 SODIUM mmol/L 140 141 141 POTASSIUM mmol/L 3.8 4.0 4.2 CHLORIDE mmol/L 108 108 106 CO2 mmol/L 15* 17* 18* BUN mg/dL 13 11 11 CREATININE mg/dL 1.11 1.06 1.06 CALCIUM mg/dL 8.6 8.6 9.0 ALBUMIN g/dL 3.0* 3.0* 3.2 ALT U/L 9 11 16 AST U/L 10 11 16 Results from last 7 days Lab Units 11/27/23 1218 11/27/23 0807 11/27/23 0541 11/26/23 2128 11/26/23 1434 11/26/23 1044 11/26/23 0947 BEDSIDE GLUCOSE mg/dL 261* 191* -- 289* 159* 141* 138* GLUCOSE mg/dL -- -- 199* -- -- -- -- Results from last 3 days Lab Units 11/27/23 0541 11/26/23 0631 11/25/23 0640 WBC X10E9/L 8.2 7.8 9.9 HEMOGLOBIN g/dL 13.3 13.0 13.6 HEMATOCRIT % 38.3* 38.6* 39.7 PLATELETS X10E9/L 263 220 216 MCV fL 97 99 98 Results from last 3 days Lab Units 11/27/23 0541 11/26/23 0631 11/25/23 0640 MAGNESIUM mg/dL 1.8 2.0 1.8 Results from last 3 days Lab Units 11/27/23 0541 11/26/23 0631 11/25/23 0640 PHOSPHORUS mg/dL 3.3 3.7 3.8 Results from last 3 days Lab Units 11/27/23 0541 11/26/23 0631 TOTAL BILIRUBIN mg/dL 0.7 0.9 DIRECT BILIRUBIN mg/dL 0.2 0.2 Lab Results Component Value Date HGBA1C 9.1 (H) 11/23/2023 No results found for: IRON , TIBC , FERRITIN No results found for: IRONSAT Lab Results Component Value Date CHOL 133 (L) 11/12/2021 Lab Results Component Value Date CHDL 2.6 11/12/2021 Lab Results Component Value Date HDL 52 11/12/2021 Lab Results Component Value Date LDLCALC 40 11/12/2021 Lab Results Component Value Date TRIG 207 (H) 11/12/2021 Lab Results Component Value Date VERYLOWLIP 41 (H) 11/12/2021 No results found for: [id number] No results found for: FOLATE No results found for: VITD25 Comments (labs): Gluc 199(H), Alb 3(L) Medications/ Parenteral: Lipitor, Rocephin, Prozac, Lantus, Humalog, Magnesium Sulfate, Lopressor, Flagyl, Protonix, K-tab, Topiramate Medications Prior to Admission Medication Sig Dispense Refill Last Dose/Taking albuterol (PROVENTIL HFA;VENTOLIN HFA) 90 mcg/actuation inhaler Inhale 2 puffs every 4 (four) hoursas needed. Taking As Needed atorvastatin (LIPITOR) 40 mg tablet Take 1 tablet (40 mg total) by mouth in the morning. Taking clonazePAM (KlonoPIN) 2 mg tablet Take 1 tablet (2 mg total) by mouth Three times daily as needed for anxiety. Taking As Needed dicyclomine (BENTYL) 20 mg tablet Take 1 tablet (20 mg total) by mouth 4 (four) times a day as needed. Taking As Needed empagliflozin (JARDIANCE) 25 mg tablet tablet Take 1 tablet (25 mg total) by mouth in the morning. Taking furosemide (LASIX) 40 mg tablet Take 1 tablet (40 mg total) by mouth daily. Taking glipiZIDE (GLUCOTROL) 10 mg tablet Take 2 tablets (20 mg total) by mouth in the morning and 2 tablets (20 mg total) in the evening. Take before meals. Taking metFORMIN (GLUCOPHAGE) 500 mg tablet Take 1 tablet (500 mg total) by mouth in the morning and 1 tablet (500 mg total) in the evening. Take with meals. Taking omeprazole (PriLOSEC) 40 mg capsule Take 1 capsule (40 mg total) by mouth every morning before breakfast. Taking OZEMPIC 2 mg/dose (8 mg/3 mL) pen injector Inject 2 mg under the skin once a week. Taking SUMAtriptan (IMITREX) 50 mg tablet Take 1 tablet (50 mg total) by mouth once as needed for migraine. Taking As Needed topiramate (TOPAMAX) 50 mg tablet Take 1 tablet (50 mg total) by mouth in the morning and 1 tablet (50 mg total) before bedtime. TAKE 1 TABLET BY MOUTH IN THE MORNING AND TAKE 1 TABLET BEFORE BEDTIME. Taking cyclobenzaprine (FLEXERIL) 10 mg tablet Take 1 tablet (10 mg total) by mouth 2 (two) times a day asneeded for muscle spasms. (Patient not taking: Reported on 11/20/2023) 10 tablet 0 Current Facility-Administered Medications Medication Dose Route Frequency Provider Last Rate Last Admin acetaminophen (TYLENOL EXTRA STRENGTH) tablet 1,000 mg 1,000 mg oral Q6H BASILIA Bryan Alfaro MD 1,000 mg at 11/27/23 1234 atorvastatin (LIPITOR) tablet 40 mg 40 mg oral Daily Bryan Alfaro MD 40 mg at 11/27/23 0828 calcium gluconate 3,000 mg in sodium chloride 0.9 % 100 mL IVPB 3,000 mg intravenous PRN Bryan Alfaro MD calcium gluconate 4,000 mg in sodium chloride 0.9 % 250 mL IVPB 4,000 mg intravenous PRN Bryan Alfaro MD calcium gluconate IVPB 2000 mg/100 mL (20 mg/mL premix) 2,000 mg intravenous PRN Bryan Alfaro MD cefTRIAXone (ROCEPHIN) 2,000 mg in sodium chloride 0.9 % 50 mL IVPB 2,000 mg intravenous Q24H Bryan Alfaro MD Stopped at 11/27/23 1314 dextrose (GLUTOSE) 40 % gel 15 g 15 g oral PRN Bryan Alfaro MD dextrose 50 % in water (D50W) 50% solution 25 mL 25 mL intravenous PRN Bryan Alfaro MD FLUoxetine (PROzac) capsule 20 mg 20 mg oral Daily Bryan Alfaro MD 20 mg at 11/27/23 0828 glucagon HCL injection 1 mg 1 mg intramuscular PRN Bryan Alfaro MD HYDROmorphone (DILAUDID) injection 0.5 mg 0.5 mg intravenous Q3H PRN Bryan Alfaro MD insulin glargine (LANTUS, SEMGLEE) injection pen 10 Units 10 Units subcutaneous BID Bryan Alfaro MD 10 Units at 11/27/23 0846 insulin lispro (HumaLOG) injection 1-4 Units 1-4 Units subcutaneous Nightly Juan Walker MD 2 Units at 11/26/23 2154 insulin lispro (HumaLOG) injection 1-5 Units 1-5 Units subcutaneous TID with meals Juan Walker MD3 Units at 11/27/23 1245 magnesium sulfate IVPB 2000 mg/50 mL in iso-osmotic water (40 mg/mL premix) 2,000 mg intravenous PRN Bryan Alfaro MD Stopped at 11/27/23 1443 magnesium sulfate IVPB 4000 mg/100 mL in iso-osmotic water (40 mg/mL premix) 4,000 mg intravenous PRN Bryan Alfaro MD metoprolol tartrate (LOPRESSOR) tablet 25 mg 25 mg oral BID Bryan Alfaro MD 25 mg at 11/27/23 0828 metroNIDAZOLE (FLAGYL) IVPB 500 mg/100 mL in iso-osmotic sodium chloride (5 mg/mL premix) 500 mg intravenous Q12H Bryan Alfaro MD Stopped at 11/27/23 0432 ondansetron (PF) (ZOFRAN) injection 4 mg 4 mg intravenous Q6H PRN Bryan Alfaro MD oxyCODONE (ROXICODONE) immediate release tablet 5 mg 5 mg oral Q6H PRN Bryan Alfaro MD Or oxyCODONE (ROXICODONE) immediate release tablet 10 mg 10 mg oral Q6H PRN Bryan Alfaro MD 10 mg at 11/25/23 0351 pantoprazole (PROTONIX) EC tablet 40 mg 40 mg oral Daily Bryan Alfaro MD 40 mg at 11/27/23 0522 potassium chloride (K-TAB,KLOR-CON) CR tablet 30-40 mEq 30-40 mEq oral PRN Bryan Alfaro MD 30 mEq at1 0828 Or potassium chloride (KAYCIEL) 20 mEq/15 mL solution 30-40 mEq 30-40 mEq oral PRN Bryan Alfaro MD sodium phosphate 20 mmol in sodium chloride 0.9 % 250 mL IVPB 20 mmol intravenous PRN Bryan Alfaro MD Or sodium phosphate 20 mmol in sodium chloride 0.9 % 100 mL IVPB 20 mmol intravenous PRN Bryan Alfaro MD Or sod phos di, mono-K phos mono (K-PHOS NEUTRAL) 250 mg tablet 2 tablet 2 tablet oral PRN Bryan Alfaro MD sodium chloride 0.9 % flush 3 mL 3 mL intravenous PRN Bryan Alfaro MD 3 mL at 11/27/23 0327 sodium chloride 0.9 % flush 3 mL 3 mL intravenous Q12H BASILIA Bryan Alfaro MD 3 mL at 11/27/23 0849 sodium chloride 0.9 % flush bag 25 mL intravenous PRN Bryan Alfaro MD sodium chloride 0.9 % infusion 20 mL/hr intravenous Continuous PRN Bryan Alfaro MD 20 mL/hr at 11/27/23 0327 20 mL/hr at 11/27/23 0327 SUMAtriptan (IMITREX) tablet 50 mg 50 mg oral Once PRN Bryan Alfaro MD topiramate (TOPAMAX) tablet 25 mg 25 mg oral BID Bryan Alfaro MD 25 mg at 11/27/23 0828 Nutrition Focused Physical Findings Last BM 11/20 Edema noted Skin (per nursing flow sheets): Skin Color: Pale; Ecchymosis (11/26/231999) Skin Temp: Warm; Dry (11/26/231999) Wound (per nursing flow sheets): Wound 11/23/23 Incision Abdomen N/A-Site Assessment: Clean; Dry; Intact (11/26/231999) Gastrointestinal (per nursing flow sheets): Abdomen Assessment: Soft; Nondistended (11/26/231999) Last BM Date: 11/21/23 (11/26/23 1636) Passing Flatus: Yes (11/25/231999) RUQ Bowel Sounds: Active (11/26/231999) LUQ Bowel Sounds: Active (11/26/231999) RLQ Bowel Sounds: Active (11/26/231999) LLQ Bowel Sounds: Active (11/26/231999) GI Symptoms: Nausea (11/26/23 1250) Relieved by: Antiemetic (11/26/23 1636) Edema (per nursing flow sheets): Generalized Edema: +1 (11/26/231999) RLE Edema: +1 (11/26/231999) LLE Edema: +1 (11/26/231999) Intake/ Output Last 24 hrs: Intake/Output Summary (Last 24 hours) at 11/27/2023 6958 Last data filed at 11/27/2023 0456 Gross per 24 hour Intake 1380 ml Output 225 ml Net 1155 ml Food/Nutrition Related History: Diet History: Patient reports having nausea States his appetite is good Patient is not certain about his weight Patient open to Ensure supplements on his trays, prefers strawberry flavor Nutrition Knowledge/Beliefs/Attitudes: No education needs at this time Allergies: No Known Allergies Diet/ Nutrition Order Review: Dietary Orders (From admission, onward) Start Ordered 11/27/23 0854 Adult diet Regular Texture Diet effective now Question: Diet Type: Answer: Regular Texture 11/27/23 0853 Diet Intakes: Percent Meals Eaten (%): (90%) (11/27/23 1200) Oral Supplemental Intake/ Acceptance: Will order Ensure Plus HP (strawberry) TID Anthropometrics: Ht Readings from Last 1 Encounters: 11/20/23 177.8 cm (5' 10 ) Wt Readings from Last 20 Encounters: 11/27/23 129.1 kg (284 lb 9.8 oz) 11/24/23 (!) 137.4 kg (303 lb) 10/04/23 135.6 kg (299 lb) 12/05/21 (!) 162.7 kg (358 lb 11.2 oz) 02/12/16 (!) 145.6 kg (321 lb) Last 3 Weight Readings 11/25/23 0234 11/26/23 0356 11/27/23 0443 Weight: 128.3 kg (282 lb 13.6 oz) 127.5 kg (281 lb 1.4 oz) 129.1 kg (284 lb 9.8 oz) Admit Weight: 128.3 kg (Standing Scale, 11/24) Usual Body Weight: -- [place] Body Weight: 75.5 kg Percent [place] Body Weight: 170% Weight Changes: monitoring, patient uncertain and became confused during conversation Body Mass Index: Body mass index is 40.84 kg/m . BMI Category: Obese class 3 (> or = 40.00) Comparative Standards: Estimated Energy Needs: 4584-3109 kcals daily. Method and weight used: 28-32 kcal/kg IBW Estimated Protein Needs: 91-151 grams daily. Method and weight used: 1.2-2 g protein/kg IBW Estimated Fluid Needs: 2188-9012 ml daily. Method weight used: 1 ml/kcal Comments: Floor needs based on BMI Malnutrition Status: Malnutrition Present: need more information NUTRITION DIAGNOSIS: Intake Diagnosis: Predicted suboptimal energy intake (NI 1.4) related to confusion as evidenced by varying statements by patient, possible weight loss. NUTRITION INTERVENTIONS: Encourage good po intake at meals [place] ensure plus high protein TID to provide 350 kcal and 20 grams of protein per serving. Coordination of care: spoke with patient on 11/26, secure chat with RN RECOMMENDATIONS: Appreciate %meal intake documented in RN Flowsheets to allow for ongoing nutrition assessments GOAL(S): Meet estimated calorie and protein needs. NUTRITION MONITORING AND EVALUATION: PO intake, labs, I/Os, weights, skin integrity, plan of care Megan Navarro MS, RDN, LD, [facility] Clinical Dietitian III Direct Line * Ignacia Castillo, DO - 11/27/2023 7:55 AM EDT [facility] Teaching GI Service Consult Gastroenterology/Hepatology Progress Note IDENTIFYING DATA PATIENT: Boo Capps ADMIT DATE: 11/25/2023 TIME OF EVALUATION: 11/27/2023 7:55 AM HOSPITAL STAY: LOS: 2 days REASON FOR HOSPITALIZATION: Bile leak SUBJECTIVE/INTERVAL HISTORY Boo Capps's overnight events were reviewed. Patient is status post ERCP 11/26/2023, which was notable for contrast extravasation from the cystic duct/gallbladder remnant. Sphincterotomy and stent placement performed. Patient seen and evaluated at bedside. He reports mild abdominal pain over his incision sites, but otherwise denies nausea and vomiting. He is anxious to advance his diet. He had minimal serosanguineous drainage from his abdominal drain. OBJECTIVE MEDICATIONS SCHEDULED: @MEDSCURRENTMD@ PRNs: calcium gluconate, 3,000 mg, PRN calcium gluconate, 4,000 mg, PRN calcium gluconate, 2,000 mg, PRN dextrose, 15 g, PRN dextrose 50 % in water (D50W), 25 mL, PRN glucagon (human recombinant), 1 mg, PRN HYDROmorphone, 0.5 mg, Q3H PRN magnesium sulfate, 2,000 mg, PRN magnesium sulfate, 4,000 mg, PRN ondansetron, 4 mg, Q6H PRN oxyCODONE, 5 mg, Q6H PRN Or oxyCODONE, 10 mg, Q6H PRN potassium chloride, 30-40 mEq, PRN Or potassium chloride, 30-40 mEq, PRN sodium phosphate IV, 20 mmol, PRN Or sodium phosphate IV - central line, 20 mmol, PRN Or sod phos di, mono-K phos mono, 2 tablet, PRN sodium chloride, 3 mL, PRN sodium chloride, 25 mL, PRN sodium chloride 0.9 %, 20 mL/hr, Continuous PRN SUMAtriptan, 50 mg, Once PRN Physical VITALS: BP 119/67 Pulse 72 Temp 36.4 C (97.5 F) (Oral) Resp 16 Wt 129.1 kg (284 lb 9.8 oz) SpO2 97% BMI 40.84 kg/m GEN: alert and oriented x3, NAD HEENT: No scleral icterus CV: RRR, no edema PULM: no accessory muscle use, symmetric chest rise ABD: soft, non-distended, non-tender NEURO: no focal deficits, moves all 4 extremities spontaneously SKIN: no rashes PSYCH: normal affect LABS AND IMAGING CBC: Lab Results Component Value Date WBC 8.2 11/27/2023 HGB 13.3 11/27/2023 HCT 38.3 (L) 11/27/2023 MCV 97 11/27/2023 RDW 15.7 (H) 11/27/2023 PLT 263 11/27/2023 CMP: Lab Results Component Value Date K 3.8 11/27/2023 CL 108 11/27/2023 CO2 15 (L) 11/27/2023 BUN 13 11/27/2023 GLU 199 (H) 11/27/2023 GLU 289 (H) 11/26/2023 IMAGING: ASSESSMENT AND PLAN Boo Capps is a 63 y.o. male who has past medical history CKD 3, MAYO, recent robotic assisted laparoscopic subtotal cholecystectomy with drainage of gallbladder abscess 11/23/2023. Patient was transferred to [facility] due to concern for bile leak. Patient initially presented to outside hospital ED with abdominal pain 11/20/2023. He has been having difficulty with eating subsequent to abdominal pain for several months. [facility]. Patient was taken to the OR 11/23/2023, laparoscopic subtotal cholecystectomy with drainage of gallbladder abscess was performed. There was an intraoperative EGD to assess for cholecystoduodenal fistula, which appeared to be absent at thetime. Drain was left in place, which currently has bilious output. Patient has 30 cc of output reported 11/23, with 270 cc of output today. Labs today are without evidence of leukocytosis, there was mild elevation in total bilirubin to 1.3. Patient denies anticoagulant, antiplatelet use, prior gastric bypass. Assessment: Cholecystitis status post subtotal cholecystectomy and drainage of gallbladder abscess 11/23/2023 Five week, status post ERCP 11/26/2023, which was notable for contrast extravasation from the cystic duct/gallbladder remnant, status post and covered metallic stent placement of to the CBD Plan: Okay for clear liquid diet, advance as tolerated We will hold DVT prophylaxis for 72 hours post sphincterotomy Antibiotics as per general surgery team To monitor drain output carefully We will arrange for repeat ERCP as an outpatient in 1 month for stent removal GI will respectfully sign off; however, we are readily available if additional questions or concerns arise. The case will be discussed with the attending physician For Questions please contact us at: [place] [facility] 6 am to 4pm weekdays in house 4 pm to 6 am or weekends please contact the outside operator to page the fellow conche loader and unloader Cosigned by Mert Valero MD at 11/27/2023 9:00 AM EDT Associated attestation - Mert Valero MD - 11/27/2023 9:00 AM EDT Discussed with fellow, agree with plan. * Wendy Mahoney MD - 11/26/2023 7:51 AM EDT Images from the original note were not included. IP Day: 1 Subjective: No acute events overnight. The patient denies substantial abdominal pain, nausea, or vomiting. He reports passage of flatus. Objective: Vitals: 11/26/23 0329 BP: 103/61 Pulse: 69 Resp: 16 Temp: 36.4 C (97.5 F) SpO2: 95% Temp: [36.1 C (97 F)-36.9 C (98.4 F)] 36.4 C (97.5 F) Pulse: [69-85] 69 Resp: [14-20] 16 BP: (94-112)/(55-83) 103/61 SpO2: [95 %-98 %] 95 % O2 Device: CPAP O2 Flow Rate (L/min): [0 L/min] 0 L/min No Known Allergies Intake/Output last 3 shifts: I/O last 3 completed shifts: In: 1368.3 [I.V.:1200; IV Piggyback:168.3] Out: 1405 [Urine:1270; Drains:135] Intake/Output this shift: No intake/output data recorded. Dietary Orders (From admission, onward) Start Ordered 11/25/231804 Adult diet NPO; Except medications Diet effective now Question Answer Comment Diet Type: NPO NPO Except: Except medications 11/25/231803 Physical Exam General Appearance: Awake, alert, oriented. No acute distress at rest. Eyes: Pupils equally round and reactive to light, extraocular muscles intact, conjunctivae nonicteric Neck: Trachea midline, supple Pulmonary: Clear to auscultation bilaterally, no increased work of breathing at rest. Cardiac: Regular rate and rhythm. Abdomen: Soft, nondistended, appropriately tender to palpation without rebound or guarding. Laparoscopic incisions clean, dry, intact with Steri-Strips and Band-Aids in place. CLAUDIO drain in place with willian bilious output. Extremity: Baseline range of motion, no notable edema of the bilateral upper or lower extremities Skin: Dry. Non-icteric. No Rash. Abdominal incisions as described above Laboratory Data: Lab Results Component Value Date WBC 7.8 11/26/2023 HGB 13.0 11/26/2023 HCT 38.6 (L) 11/26/2023 MCV 99 11/26/2023 PLT 220 11/26/2023 Lab Results Component Value Date GLU 134 (H) 11/26/2023 CALCIUM 8.6 11/26/2023 K 4.0 11/26/2023 CO2 17 (L) 11/26/2023 CL 108 11/26/2023 BUN 11 11/26/2023 CREATININE 1.06 11/26/2023 No results found for: AMYLASE Lab Results Component Value Date LIPASE 47 (H) 11/20/2023 Lab Results Component Value Date ALT 11 11/26/2023 AST 11 11/26/2023 ALKPHOS 100 11/24/2023 Lab Results Component Value Date INR 1.1 11/25/2023 PROTIME 12.9 11/25/2023 acetaminophen, 1,000 mg, oral, Q6H BASILIA atorvastatin, 40 mg, oral, Daily cefTRIAXone (ROCEPHIN) IV, 2,000 mg, intravenous, Q24H FLUoxetine, 20 mg, oral, Daily insulin glargine, 10 Units, subcutaneous, BID insulin lispro, 2-16 Units, subcutaneous, Q6H metoprolol tartrate, 25 mg, oral, BID metroNIDAZOLE, 500 mg, intravenous, Q12H pantoprazole, 40 mg, oral, Daily sodium chloride, 3 mL, intravenous, Q12H BASILIA topiramate, 25 mg, oral, BID calcium gluconate calcium gluconate calcium gluconate dextrose dextrose 50 % in water (D50W) glucagon (human recombinant) HYDROmorphone magnesium sulfate magnesium sulfate ondansetron oxyCODONE OR oxyCODONE potassium chloride OR potassium chloride sodium phosphate IV OR sodium phosphate IV - central line OR sod phos di, mono-K phos mono sodium chloride sodium chloride sodium chloride 0.9 % SUMAtriptan Assessment: Boo Capps is a 63 y.o. male whom is Hospital Day: 2 status post robotic assisted subtotal cholecystectomy 11/22, with anticipated bile leak. Also with history of type 2 diabetes. Awaiting ERCP Plan: Gastroenterology to proceed with ERCP today NPO in anticipation of procedure Continue IV fluids while NPO Monitor CLAUDIO output Encourage ambulation Encourage incentive spirometry DVT prophylaxis held in anticipation of procedure Wendy Mahoney MD, MPH General Surgery Resident PGY-5 Cosigned by Konrad Keyes MD at 11/26/2023 11:19 AM EDT Associated attestation - Konrad Keyes MD - 11/26/2023 11:19 AM EDT Attending Attestation: I saw the patient. I participated and was physically present during the critical/salomon portions of the service. I was directly involved in the management and treatment plan of the patient. I reviewed the resident's note. Additional Notes/Findings: Medical Decision Making: high Speak with GI team and follow up the results of the ERCP today Serial exams If any bowel injury may need emergent surgery [facility]* Discharge Planning Note - Hannah Nunez RN - 11/27/2023 2:40 PM EDT DISCHARGE PLANNING NOTE Case discussed in daily transition rounds and chart reviewed by CN. Barriers to discharge include no medical barriers at this time, discharge order written. Discharge Plan remains: home with [facility] care, CN sent [facility] and notified that patient is ready for discharge. Patient requested CN call [facility] for transport, [facility] unable to provide wheelchair and needs 48 hours advance notice. CN notified patient, patient would like PTN transport. CN tasked [facility] transport to patient's home for 3:30 today. Patient has elevator to enter home. CN sent rollator walker script and face to face to [facility]. CN will continue to follow and is available should any further needs arise. - Hannah Nunez RN 11/27/23 2:41 PM CN sent updated rollator script to [facility] and notified of transport time tomorrow. CN notified of 1100transport tomorrow, CN notified MD and RN. CN asked RN to relay to patient. - Hannah Nunez RN 11/27/23 4:33 PM [facility] Plan of care note* Plan of Care - Ena Mi MD - 11/27/2023 1:10 PM EDT General Surgery Plan of Care: The patient has a mobility limitation that significantly impairs their ability to participate in one or more mobility related activities of daily living in the home which prevents the beneficiary from completing the MRADL within a reasonable time frame. Patient requires a seat on the walker to takebreaks due to the fact that the patient is unable to walk long distances without having to stop & rest. The patient is able to safely use the rollator and the functional mobility deficit can be sufficiently resolved by the use of a rollator. A 2 wheeled walker & a cane have been tried and ruled out. ENA PAZ MD General Surgery Resident PGY-1 [facility]10[facility] Progress note* PT/OT/NUTRITION CONSULTANT - KAJAL Kay - 11/27/2023 11:13 AM EDT Occupational Therapy Treatment Discharge Recommendations OT Recommendations : Home Home Recommendations: 24 hour caregiver support for: (ADL/IADLs as needed.) 6 Clicks: Daily Activity Putting on and taking off regular lower body clothing?: A little Bathing (including washing, rinsing, drying)?: A little Toileting, which includes using toilet, bedpan or urinal?: A little Putting on and taking off regular upper body clothing?: A little Taking care of personal grooming such as brushing teeth?: A little Eating meals?: None Scoring Daily Activity Raw Score: 19 CMS G Code Modifier: CK OT Treatment/Interventions: ADL retraining, Functional transfer training, UE strengthening/ROM, Endurance training, Patient/family training, Balance, Bed mobility, Compensatory technique education, Functional activities OT Frequency: 4-5days/week OT Duration: LOS Assessment Patient Assessment Therapy Problem List: Decreased ADL status, Decreased balance, Decreased cognition, Decreased endurance, Decreased fine motor, Decreased gross motor, Decreased high-level ADLs, Decreased mobility, Decreased safe judgement during ADL, Decreased self-care trans, Decreased UE strength Patient Response to Treatment: Progressing toward goals Mood/Affect: Appropriate for circumstances Rehab Prognosis: Good, With continued OT status post acute discharge Visit RN Communication: Yes Medical Record Reviewed: Yes OT Type of Visit: Treatment Precautions Activity: okay to see per RN Equipment: RW, gait belt, CLAUDIO drain Telemetry/Kitchenwhere Maker: Yes Oxygen Used: room air Other: fall risk Pain Assessment Pain Assessment: No/denies pain ADL / IADL Hand Dominance: Right Where Assessed: Sitting at sink Grooming Assistance: Setup Grooming Deficit: Verbal cueing, Increased time to complete, Wash/dry face, Oral hygiene Other: Pt completed grooming tasks seated at sink. Increased cues for task initiation and attentionto task. Home Management - IADL Other: Pt completed grooming tasks seated at sink. Increased cues for task initiation and attentionto task. Hearing / Speech / Vision Hearing: Within Functional Limits Speech: Within Functional Limits Current Vision: Wears glasses all the time Cognition Arousal/Alertness: Appropriate responses to stimuli Attention Span: Attends with cues to redirect Following Commands: Follows one step commands with increased time Other: Increased cues required for attention to task. Bed Mobility Other: Pt in chair upon arrival and at exit with call light within reach, RN aware. Transfers Sit to Stand: Contact guard assist Stand to Sit: Contact guard assist Other: Cues for proper hand placement. RW for support. No LOB noted. Gait Gait Assistance: Contact guard assist Assistive Device: Rolling walker Gait Distance: 15' x2 Limiting Factors to Gait: Fatigue, Weakness Other: Pt completed functional mobility with BUE support on RW. Cues for sequencing, tech, and safety. Pt deferred further mobility d/t fatigue. Balance Sitting Balance: Static: Good Sitting Balance: Dynamic: Fair Standing Balance: Static: Fair Standing Balance: Dynamic: Fair Other: Pt sat unsupported at sink 12-15 mins for ADL tasks. Pt intermittently leaning in/out of BOSseated with ability to return to midline. Pt mildly unsteady throughout with no major LOB noted. Activity Tolerance Endurance: Tolerates >30 minutes activity with rest breaks Other: Pt pleasant and cooperative. Increased time for all tasks and cues for attention to task. 11/27/23 0845 UE ROM Scapular retraction x Shoulder horizontal abduction/adduction x Elbow flexion/extension x Other BUE AROM Repetitions x15 Plan Occupational Therapy Care Plan Occupational Therapy Care Plan (Active) Template: OT - Occupational Therapy Problem: Activity Tolerance Dates: Start: 11/25/23 Disciplines: OT Goal: No limitations to activity tolerance Dates: Start: 11/25/23 Expected End: 12/18/23 Description: Goal Description: Disciplines: OT Outcomes Date/Time User Outcome 11/27/23 Umair KAJAL Kay Progressing Problem: Bed Mobility Dates: Start: 11/25/23 Disciplines: OT Goal: Patient will perform bed mobility with Modified [place] Dates: Start: 11/25/23 Expected End: 12/18/23 Description: Goal Description: Disciplines: OT Problem: Functional Mobility Dates: Start: 11/25/23 Disciplines: OT Goal: Patient will perform functional mobility with Modified [place] Dates: Start: 11/25/23 Expected End: 12/18/23 Description: Goal Description: Disciplines: OT Outcomes Date/Time User Outcome 11/27/23 GalenElda KAJAL Kay Progressing Problem: Other (Customize) Dates: Start: 11/25/23 Disciplines: OT Goal: Improve Dates: Start: 11/25/23 Expected End: 12/18/23 Description: Pt will complete all areas of ADL Tasks at Mod I with use of DME as needed and good safety awareness Disciplines: OT Outcomes Date/Time User Outcome 11/27/23 Umair KAJAL Kay Progressing Problem: Sitting Balance Dates: Start: 11/25/23 Disciplines: OT Goal: Improve balance to normal Dates: Start: 11/25/23 Expected End: 12/18/23 Description: Static Dynamic Disciplines: OT Outcomes Date/Time User Outcome 11/27/23 KAJAL Zapata Progressing Problem: Standing Balance Dates: Start: 11/25/23 Disciplines: OT Goal: Improve balance to good Dates: Start: 11/25/23 Expected End: 12/18/23 Description: Static Dynamic Disciplines: OT Outcomes Date/Time User Outcome 11/27/23 KAJAL Zapata Progressing Problem: Strength Dates: Start: 11/25/23 Disciplines: OT Goal: Improve strength Dates: Start: 11/25/23 Expected End: 12/18/23 Description: Pt will tolerate BUE HEP to progress stamina to care for self Disciplines: OT Outcomes Date/Time User Outcome 11/27/23 1023 KAJAL Kay Progressing Problem: Transfers Dates: Start: 11/25/23 Disciplines: OT Goal: Patient will perform transfers with Modified [place] Dates: Start: 11/25/23 Expected End: 12/18/23 Description: Goal Description: Disciplines: OT Outcomes Date/Time User Outcome 11/27/23 1023 FIFI Kay/Char Progressing Occupational Therapy Care Plan (Resolved) There are no resolved problems. Principal Problem: Bile leak Cosigned by JCAOB Holley/Char at 11/27/2023 2:57 PM EDT Associated attestation - Yvonne Escoto OTR/L - 11/27/2023 2:57 PM EDT I have reviewed and agree with this note and education documentation for this visit. Oree [id number] Progress note* PT/OT/NUTRITION CONSULTANT - Mert Cameron PTA - 11/27/2023 11:08 AM EDT Physical Therapy Treatment Discharge Recommendations PT Recommendations: Home Home Recommendations: 24 hour caregiver support for: (ADLs and mobiltiy) Post Discharge Therapy Recommendations: Home Physical Therapy 6 Clicks: Basic Mobility Turning from your back to your side while in a flat bed without using bed rails?: A little Moving from lying on your back to sitting on side of flat bed without using bed rails?: A little Moving to and from bed to a chair (including w/c)?: A little Standing up from a chair using your arms (e.g. w/c or bedside chair)?: A little To walk in hospital room?: A little Climbing 3-5 steps with a railing?: A little Scoring 6 Clicks: Basic Mobility Raw Score: 18 CMS G Code Modifier: CK Therapy Plan PT Treatment/Interventions: Functional transfer training, UE strengthening/ROM, LE strengthening/ROM, Endurance training, Patient/family training, Equipment eval/education, Balance, Bed mobility, Gait training, Functional activities PT Frequency: 4-5days/week PT Duration: LOS Patient Response to Treatment: Progressing toward goals Assessment Patient Assessment Therapy Problem List: Decreased ADL status, Decreased balance, Decreased cognition, Decreased endurance, Decreased fine motor, Decreased gross motor, Decreased high-level ADLs, Decreased mobility, Decreased safe judgement during ADL, Decreased self-care trans, Decreased UE strength Patient Response to Treatment: Progressing toward goals Mood/Affect: Appropriate for circumstances Rehab Prognosis: Good, With continued PT status post acute discharge Visit RN Communication: Yes Medical Record Reviewed: Yes PT Type of Visit: Treatment Precautions Activity: Okay to see per RN Equipment: gait belt, RW Telemetry/Kitchenwhere Maker: Yes Oxygen Used: room air Other: fall risk Pain Assessment Pain Assessment: No/denies pain Bed Mobility Other: NT. Pt seated in chair pre/post tx w/ call light in reach, and all needs met Transfers Sit to Stand: Contact guard assist Stand to Sit: Contact guard assist Other: Cues required for safe hand placement and technique - good carryover. CGA for safety Gait Base of Support: Wide Pattern: Decreased annita, R Decreased heel strike, L Decreased heel strike, Forward trunk Gait Assistance: Contact guard assist Assistive Device: Rolling walker Gait Distance: 15' x2 Limiting Factors to Gait: Fatigue, Weakness 2 Turns: Yes Other: Pt ambulated 15' x2 in room, taking a seated break between distances. Pt demos slow annita w/ short step length and mildly trails RW. CGA for safety w/ cues given for pacing and to improve posture - fair carryover. Pt deferred further ambulation d/t fatigue Balance Sitting Balance: Static: Good Sitting Balance: Dynamic: Fair Standing Balance: Static: Fair Standing Balance: Dynamic: Fair Other: Pt sat unsupported on shower chair 12-15 min to improve endurance and trunk control and to perform ADLs. Pt occasionally mildly unsteady when standing and ambulating d/t fatigue but no LOB Activity Tolerance Endurance: Tolerates >30 minutes activity with rest breaks Other: Fair tolerance to activity, limited by fatigue and weakness. Rest breaks taken as needed 11/27/23 0844 LE Seated LE seated exercises performed? Yes Ankle pumps x Long arc quads x Seated marching x Other BLE AROM performed while seated in chair to improve strength and function. Cues given for technique and pacing Repetitions 15 Plan Physical Therapy Care Plan Physical Therapy Care Plan (Active) Template: PT - Physical Therapy Problem: Activity Tolerance Dates: Start: 11/25/23 Disciplines: PT Goal: Tolerate 30 minutes of activity WITH rest breaks Dates: Start: 11/25/23 Expected End: 12/23/23 Description: Goal Description: patient to tolerate 15-20 reps HEP for B LE strengthening Disciplines: PT Outcomes Date/Time User Outcome 11/27/23 1023 Mert Cameron PTA Progressing Goal Note filed on 11/27/23 1023 by Mert Cameron PTA Evaluation of progress towards goal: Problem: Bed Mobility Dates: Start: 11/25/23 Disciplines: PT Goal: Patient will perform bed mobility with Stand By Assist Dates: Start: 11/25/23 Expected End: 12/23/23 Description: Goal Description: Disciplines: PT Problem: Gait Dates: Start: 11/25/23 Disciplines: PT Goal: Patient will perform gait with Stand By Assist Dates: Start: 11/25/23 Expected End: 12/23/23 Description: With___RW_,___150_feet Goal Description: Disciplines: PT Outcomes Date/Time User Outcome 11/27/23 1023 Mert Cameron PTA Not Progressing Goal Note filed on 11/27/23 1023 by Mert Cameron PTA Evaluation of progress towards goal: Problem: Standing Balance Dates: Start: 11/25/23 Disciplines: PT Goal: Improve balance to good Dates: Start: 11/25/23 Expected End: 12/23/23 Description: Static: Fair+/Good- with 1 UE support Dynamic: Fair/Fair+ with 1 UE support Disciplines: PT Outcomes Date/Time User Outcome 11/27/23 1023 Mert Cameron PTA Progressing Goal Note filed on 11/27/23 1023 by Mert Cameron PTA Evaluation of progress towards goal: Problem: Transfers Dates: Start: 11/25/23 Disciplines: PT Goal: Patient will perform transfers with Stand By Assist Dates: Start: 11/25/23 Expected End: 12/23/23 Description: Goal Description: stand pivot technique with RW Disciplines: PT Outcomes Date/Time User Outcome 11/27/23 1023 Mert Cameron PTA Progressing Goal Note filed on 11/27/23 1023 by Mert Cameron PTA Evaluation of progress towards goal: Physical Therapy Care Plan (Resolved) There are no resolved problems. Principal Problem: Bile leak Cosigned by Ignacia Arellano PT at 11/27/2023 2:45 PM EDT Associated attestation - Ignacia Arellano, PT - 11/27/2023 2:45 PM EDT I have reviewed and agree with this note and education documentation for this visit. [facility]10-18-[facility] Plan of care note* Plan of Care - Cleo Rizvi RN - 11/27/2023 12:07 AM EDT Problem: Pain Goal: Patient goal is pain score less than 4, able to rest, and participant in treatment plan as appropriate Description: INTERVENTIONS: 1. Encourage patient or legal account retention representative to report early pain and ask for pain medicine when needed 2. Assess pain using appropriate pain scale and include the scale used when documenting 3. Administer analgesics based on type and severity of pain and evaluate response within appropriate time frame 4. Implement non-pharmacological measures as appropriate and evaluate response 5. Consider cultural and social influences on pain and pain management 6. Notify LIP if interventions ineffective or patient reports new pain 7. Monitor vital signs including pulse ox, end-tidal CO2 based on pain intervention 8. Reassess pain per policy 9. Teach patient or legal account retention representative interventions for comforting Outcome: Progressing Note: Evaluation of progress towards goal: pt denies pain this shift Problem: Safety Goal: Patient will be injury free during hospitalization Description: INTERVENTIONS: 1. Assess patient's risk for falls and implement fall prevention plan of care per policy 2. Provide and maintain a safe environment 3. Proper use of double Identifiers 4. Medication administration using the 5 rights 5. Hand hygiene 6. Specimens are labeled at the bedside 7. Instruct patient/ patient account retention representative about use of safety devices 8. Include patient/ patient account retention representative in decisions related to safety Outcome: Progressing Note: Evaluation of progress towards goal: pt calls appropriately, interventions in place Problem: Infection Goal: Absence of infection during hospitalization Description: Interventions: 1. Assess and monitor for signs and symptoms of infection 2. Monitor lab/diagnostic results 3. Monitor all insertion sites i.e., indwelling lines, tubes and drains 4. Monitor endotracheal (as able) and nasal secretions for changes in amount and color 5. Administer medications as ordered 6. Instruct and encourage patient and family to use good hand hygiene technique 7. Identify and instruct patient/patient account retention representative in use of appropriate isolation precautionsfor identified infection/symptoms 8. Provide and discuss with patient/patient account retention representative on educational MDRO sheet 9. Encourage and monitor nutritional status daily and consult production foreman if indicated 10. Implement neutropenic guidelines as needed 11. Review exposure to history of communicable disease and recent travel history on admission 12. Encourage annual influenza vaccine 13. Encourage pneumonia vaccine Outcome: Progressing Note: Evaluation of progress towards goal: no current symptoms of infection, surgical areas healingappropriately Problem: Moderate - High Risk Fall Score Description: Cha Fall Score of =/> 25 [facility] Goal: Patient should be free from fall Description: Interventions: 1. [place] to environment 2. Hourly rounds addressing the 4 P's (Pain, Positioning, Possessions, Potty) 3. Clear area of hazards (spills, clutter, electrical cords, unnecessary equipment) 4. Place equipment (bed & TV controls, call light, phone, urinal) within reach 5. Encourage patient to wear glasses and hearing aides as appropriate 6. Maintain bed in lowest position 7. Lock wheels on bed/wheelchair 8. Provide adequate lighting, including night light 9. Assess need for additional bedding, food/fluids, pain med's prior to sleep/routinely 10. Provide gripper slippers or personal non-skid footwear 11. Teach patient and patient account retention representative to maintain environment for safety and engage in all aspects of fall prevention program 12. Remind patient to call for help before getting out of bed 13. Initiate bed/chair/exit alarms supportive devices as appropriate, (chair wedge, no-skid floor mat, raised edge mattress, hip protectors) 14. Locate patient bed assignment for optimal visualization 15. Evaluate and identify Safe Patient Handling Equipment needs 16. Provide supervision when out of bed or chair 17. Utilize gait belt as needed to assist with ambulation 18. Place adaptive equipment (cane, walker) within reach 19. Request patient account retention representative bring adaptive equipment/mobility aids from home or obtain and provide as needed 20. Consult pharmacy regarding effects of med's affecting mobility, cognition, and alternatives 21. Obtain physician order for PT if risk factors associated with mobility are present 22. Obtain physician order for OT as appropriate 23. Utilize diversional activities 24. Educate patient and patient account retention representative how to maintain a safe environment during visitationtimes (notify nurse prior to leaving bedside) 25. Consider appropriateness of medical or non-medical geneticist 26. Set up voiding schedule as appropriate (every 2 hours) Outcome: Progressing Note: Evaluation of progress towards goal: no falls, fall interventions in place [facility] [id number] Plan of care note* Plan of Care - Ai Salvador RN - 11/26/2023 6:14 PM EDT Problem: Pain Goal: Patient goal is pain score less than 4, able to rest, and participant in treatment plan as appropriate Description: INTERVENTIONS: 1. Encourage patient or legal account retention representative to report early pain and ask for pain medicine when needed 2. Assess pain using appropriate pain scale and include the scale used when documenting 3. Administer analgesics based on type and severity of pain and evaluate response within appropriate time frame 4. Implement non-pharmacological measures as appropriate and evaluate response 5. Consider cultural and social influences on pain and pain management 6. Notify LIP if interventions ineffective or patient reports new pain 7. Monitor vital signs including pulse ox, end-tidal CO2 based on pain intervention 8. Reassess pain per policy 9. Teach patient or legal account retention representative interventions for comforting Outcome: Progressing Note: Evaluation of progress towards goal: Medicated for pain as needed will continue to monitor Problem: Safety Goal: Patient will be injury free during hospitalization Description: INTERVENTIONS: 1. Assess patient's risk for falls and implement fall prevention plan of care per policy 2. Provide and maintain a safe environment 3. Proper use of double Identifiers 4. Medication administration using the 5 rights 5. Hand hygiene 6. Specimens are labeled at the bedside 7. Instruct patient/ patient account retention representative about use of safety devices 8. Include patient/ patient account retention representative in decisions related to safety Outcome: Progressing Note: Evaluation of progress towards goal: Bed low, locked, call light in reach. Will continue to monitor Problem: Infection Goal: Absence of infection during hospitalization Description: Interventions: 1. Assess and monitor for signs and symptoms of infection 2. Monitor lab/diagnostic results 3. Monitor all insertion sites i.e., indwelling lines, tubes and drains 5. Administer medications as ordered 6. Instruct and encourage patient and family to use good hand hygiene technique 11. Review exposure to history of communicable disease and recent travel history on admission 12. Encourage annual influenza vaccine 13. Encourage pneumonia vaccine Outcome: Progressing Note: Evaluation of progress towards goal: Patient remains free from infection, will continue to monitor Problem: Knowledge Deficit Goal: Patient/patient account retention representative demonstrates understanding of disease process, treatment plan,medications, and discharge instructions Description: INTERVENTIONS 1. Complete learning assessment and assess knowledge base 2. Provide teaching at level of understanding 3. Provide teaching via preferred learning method(s) Outcome: Progressing Note: Evaluation of progress towards goal: Patient was included in daily plan of care. Problem: Discharge Planning Goal: Discharge to post-acute care, other facility, or home with appropriate resources Description: Patient's goal is: INTERVENTIONS 1. Conduct assessment to determine patient/family and health care team treatment goals, and need for post-acute services based on payer coverage, community resources, and patient preferences, and barriers to discharge 2. Coordinate with Social work, Care Navigation, and Utilization Review to arrange appropriate level of services according to patient's needs based on patient preference and payer coverage in collaboration with the physician and health care team 3. Address psychosocial, clinical, and financial barriers to discharge as identified in assessment in conjunction with the patient/family and health care team 4. Consult appropriate ancillary services (i.e.. PT/OT/ST, etc) as needed 5. Communicate with and update the patient/family, physician, and health care team regarding progress on the discharge plan 6. Identify discharge learning needs (meds, wound care, etc). 7. Arrange for needed discharge transportation as appropriate Outcome: Progressing Note: Evaluation of progress towards goal: Progressing towards discharge Problem: Glucose Imbalance Goal: Clinical indication of glucose balance is achieved Description: Patient's goal is: INTERVENTIONS 1. Monitor blood glucose levels as ordered 2. Administer medications as ordered 3. Notify physician of ineffective treatment plan Outcome: Progressing Note: Evaluation of progress towards goal: Pts glucose levels are being monitored and treated as needed Goal: Patient's discharge needs are met Description: Patient's goal is: INTERVENTIONS 1. Assess patient for self-management skills 2. Encourage participation in diabetes management 3. Identify potential discharge barriers on admission and throughout hospital stay 4. Involve patient/S.O. in discharge planning process 5. Communicate referral to chemical educator as appropriate 6. Communicate referral to production foreman as appropriate 7. Collaborate with case management/forensic social worker for discharge needs Outcome: Progressing Note: Evaluation of progress towards goal: Discharge needs will be discussed with pt and met beforedischarge. Problem: Moderate - High Risk Fall Score Description: Cha Fall Score of =/> 25 or indicated by [facility] Assessment Goal: Patient should be free from fall Description: Interventions: 1. [place] to environment 2. Hourly rounds addressing the 4 P's (Pain, Positioning, Possessions, Potty) 3. Clear area of hazards (spills, clutter, electrical cords, unnecessary equipment) 4. Place equipment (bed & TV controls, call light, phone, urinal) within reach 5. Encourage patient to wear glasses and hearing aides as appropriate 6. Maintain bed in lowest position 7. Lock wheels on bed/wheelchair 8. Provide adequate lighting, including night light 9. Assess need for additional bedding, food/fluids, pain med's prior to sleep/routinely 10. Provide gripper slippers or personal non-skid footwear 11. Teach patient and patient account retention representative to maintain environment for safety and engage in all aspects of fall prevention program 12. Remind patient to call for help before getting out of bed 15. Evaluate and identify Safe Patient Handling Equipment needs 16. Provide supervision when out of bed or chair 18. Place adaptive equipment (cane, walker) within reach 20. Consult pharmacy regarding effects of med's affecting mobility, cognition, and alternatives 21. Obtain physician order for PT if risk factors associated with mobility are present 22. Obtain physician order for OT as appropriate 24. Educate patient and patient account retention representative how to maintain a safe environment during visitationtimes (notify nurse prior to leaving bedside) Outcome: Progressing Note: Evaluation of progress towards goal: Patient remains free from falls [facility] [id number] [facility] Patient Name: Boo Capps Procedure Date: 11/26/2023 9:32 AM CSN: [id number] Date of : 1960 Admit Type: Inpatient Age: 63 Room: [place] [address] Gender: Male Note Status: Finalized Attending MD: RAFAEL PATRICIA MD, Procedure: ERCP Indications: Bile leak Providers: RAFAEL PATRICIA MD Referring MD: Anahy Cooper Requesting Provider: Medicines: General Anesthesia, Indomethacin 100 mg KS Complications: No immediate complications. Procedure: After obtaining informed consent, the scope was passed under direct vision. Throughout the procedure, the patient's blood pressure, pulse, and oxygen saturations were monitored continuously. The was introduced through the mouth, and advanced to the duodenum and used to inject contrast into the bile duct. The Endoscope was introduced through the and advanced to the duodenum. The ERCP was accomplished without difficulty. The patient tolerated the procedure well. Findings: The behavior management specialist film was normal. The esophagus was successfully intubated under direct vision. The scope was advanced to a normal major papilla in the descending duodenum without detailed examination of the pharynx, larynx and associated structures, and upper GI tract. The upper GI tract was grossly normal. The bile duct was deeply cannulated with the short-nosed traction sphincterotome. Contrast was injected. I personally interpreted the bile duct images. Ductal flow of contrast was adequate. Preparations were made for cholangiography using balloon occlusion technique. The previous cannulation device was exchanged over the guidewire for a balloon-tipped catheter. The balloon-tipped catheter was then advanced into the common bile duct. The balloon was inflated to 12 mm in size. Contrast was then injected into the biliary tree and opacified the left and right hepatic ducts and all intrahepatic branches. Extravasation of contrast originating from the cystic duct/gallbladder remnant was observed. A 5 mm biliary sphincterotomy was made with a traction (standard) sphincterotome using ERBE electrocautery. There was no post-sphincterotomy bleeding. To discover objects, the biliary tree was swept with a 12 mm balloon starting at the bifurcation. Nothing was found. One 8 mm by 8 cm covered metal stent was placed into the common bile duct. The stent was in good position. Estimated Blood Loss: Estimated blood loss was minimal. Impression: - A bile leak was found from the cystic duct/gallbladder remnant. - A biliary sphincterotomy was performed. - The biliary tree was swept and nothing was found. - One covered metal stent was placed into the common bile duct. Recommendation: - Clear liquid diet after 4 hours. - Repeat ERCP in 1 month for stent removal Procedure Code(s): --- Professional --- 51285, Endoscopic retrograde cholangiopancreatography (ERCP); with placement of endoscopic stent into biliary or pancreatic duct, including pre- and post-dilation and guide wire passage, when performed, including sphincterotomy, when performed, each stent Diagnosis Code(s): --- Professional --- K83.9, Disease of biliary tract, unspecified K83.8, Other specified diseases of biliary tract CPT copyright 2022 [employer] [place] [employer]. All rights reserved. The codes documented in this report are preliminary and upon procurement analyst review may be revised to meet current compliance requirements. Dr. Rafael PATRICIA MD 11/26/2023 12:14:25 PM This report has been signed electronically. Number of Addenda: 0 Note Initiated On: 11/26/2023 9:32 AMPM [id number] Progress note* PT/OT/NUTRITION CONSULTANT - FIFI Kay/L - 11/26/2023 10:13 AM EDT Occupational Therapy (P) CANCEL - Deferred (Pt off floor for procedure. Will continue POC as able/appropriate.) Cosigned by Aleksandra Samaniego OT/L at 11/26/2023 12:44 PM EDT Associated attestation - Aleksandra Samaniego OT/Char - 11/26/2023 12:44 PM EDT I have reviewed and agree with this note and education documentation for this visit. Oree [id number] Progress note* PT/OT/NUTRITION CONSULTANT - Mert Cameron PTA - 11/26/2023 10:09 AM EDT Physical Therapy (P) CANCEL - Deferred (Pt off floor for procedure) Continue POC as able Cosigned by Ignacia Arellano PT at 11/26/2023 12:33 PM EDT Associated attestation - Ignacia Arellano, PT - 11/26/2023 12:33 PM EDT I have reviewed and agree with this note and education documentation for this visit. [facility]10-17-2024 Note* Discharge instr - Endo Pulm - Rafael Patricia MD - 11/26/2023 9:32 AM EDT Patient Instructions after an ERCPPatient: Boo Capps Date: November 254Attending MD: RAFAEL PATRICIA MD1. Do Not eat or drink anything for 1 hour. Trysips of water first. If tolerated, resume your regular diet or one recommended by your physician.2. Do not drive, operate machinery, make criticaldecisions, or do activities that require coordination or balance for 24 hours.3. You may experiencea sore throat for 24 to 48 hours. You may use throat lozenges or gargle with warm salt water to relieve the discomfort.4. Because air was put into your stomach during the procedure, you may experience some belching.5. Go directly to the emergency room if you notice any of the following: Chills and/or fever over 101 Persistent vomiting or vomiting with blood/nasal regurgitaiton Severe abdominal pain, other than gas cramps Severe chest pain Black, tarry stoolsYour doctor recommends these additional instructions:Take a clear liquid diet.Your impressions for this procedure:- A bile leak was found from the cystic duct/gallbladder remnant. - A biliary sphincterotomy was performed. - The biliary tree was swept and nothing was found. - One covered metal stent was placed into the common bile duct.We encourage all patients to report any concerns regarding care, treatment, services or any patient safety issues. Please contact the Nurse Water Systems Engineer at [phone] or in writing to [address] [facility], [address].Dr. Rafael PATRICIA MD11/26/2023 12:14:25 PMThis report has been signed electronically. [employer] Work Phone: [phone] Attending History and physical note* Servando Crawford MD - 11/26/2023 5:56 AM EDT H&P reviewed. The patient was examined and there are no changes to the H&P. Plan for ERCP today. Cosigned by Rafael Patricia MD at 11/26/2023 2:10 PM EDT Associated attestation - Rafael Patricia MD - 11/26/2023 2:10 PM EDT H&P reviewed. The patient was examined and there are no changes to the H&P. Source Note - Ignacia Castillo DO - 11/25/2023 12:17 PM EDT [facility] Teaching GI Service Initial Gastroenterology/Hepatology Consultation Note IDENTIFYING DATA PATIENT: Boo Capps ADMIT DATE: 11/25/2023 TIME OF EVALUATION: 11/25/2023 12:17 PM Reason for Consult: Bile leak HISTORY OF PRESENT ILLNESS Boo Capps is a 63 y.o. male who has past medical history CKD 3, MAYO, recent robotic assisted laparoscopic subtotal cholecystectomy with drainage of gallbladder abscess 11/23/2023. Patient was transferred to [facility] due to concern for bile leak. Patient initially presented to outside hospital ED with abdominal pain 11/20/2023. He has been having difficulty with eating subsequent to abdominal pain for several months. [facility]. Patient was taken to the OR 11/23/2023, laparoscopic subtotal cholecystectomy with drainage of gallbladder abscess was performed. There was an intraoperative EGD to assess for cholecystoduodenal fistula, which appeared to be absent at thetime. Drain was left in place, which currently has bilious output. Patient has 30 cc of output reported 11/23, with 270 cc of output today. Labs today are without evidence of leukocytosis, there was mild elevation in total bilirubin to 1.3. GI HISTORY SUMMARY TABLE Last EGD Last colonoscopy Primary GI physician PAST MEDICAL, SURGICAL, FAMILY, and SOCIAL HISTORY Past Medical History: Diagnosis Date Anxiety Bile leak 11/25/2023 Chronic back pain Depression Diabetes mellitus type 2, controlled ([facility]) GERD (gastroesophageal reflux disease) Migraines Visual impairment Past Surgical History: Procedure Laterality Date DAVINCI CHOLECYSTECTOMY N/A 11/23/2023 Performed by Anahy Cooper MD at [facility] No family history on file. Social History: Social History Tobacco Use Smoking status: Never Smokeless tobacco: Never Vaping Use Vaping status: Never Used Substance Use Topics Alcohol use: Not Currently Drug use: Never MEDICATIONS Allergies: No Known Allergies Home Medications: Prior to Admission medications Medication Sig Start Date End Date Taking? Authorizing Provider albuterol (PROVENTIL HFA;VENTOLIN HFA) 90 mcg/actuation inhaler Inhale 2 puffs every 4 (four) hoursas needed. 11/12/23 Yes Not In System Ref Prov atorvastatin (LIPITOR) 40 mg tablet Take 1 tablet (40 mg total) by mouth in the morning. Yes Not InSystem Ref Prov clonazePAM (KlonoPIN) 2 mg tablet Take 1 tablet (2 mg total) by mouth Three times daily as needed for anxiety. 09/29/23 Yes Not In System Ref Prov dicyclomine (BENTYL) 20 mg tablet Take 1 tablet (20 mg total) by mouth 4 (four) times a day as needed. Yes Not In System Ref Prov empagliflozin (JARDIANCE) 25 mg tablet tablet Take 1 tablet (25 mg total) by mouth in the morning. 09/07/23 Yes Not In System Ref Prov furosemide (LASIX) 40 mg tablet Take 1 tablet (40 mg total) by mouth daily. 10/16/21 02/21/24 Yes Not In System Ref Prov glipiZIDE (GLUCOTROL) 10 mg tablet Take 2 tablets (20 mg total) by mouth in the morning and 2 tablets (20 mg total) in the evening. Take before meals. Yes Not In System Ref Prov metFORMIN (GLUCOPHAGE) 500 mg tablet Take 1 tablet (500 mg total) by mouth in the morning and 1 tablet (500 mg total) in the evening. Take with meals. Yes Not In System Ref Prov omeprazole (PriLOSEC) 40 mg capsule Take 1 capsule (40 mg total) by mouth every morning before breakfast. 09/04/23 Yes Not In System Ref Prov OZEMPIC 2 mg/dose (8 mg/3 mL) pen injector Inject 2 mg under the skin once a week. Yes Not In System Ref Prov SUMAtriptan (IMITREX) 50 mg tablet Take 1 tablet (50 mg total) by mouth once as needed for migraine. 01/29/23 Yes Not In System Ref Prov topiramate (TOPAMAX) 50 mg tablet Take 1 tablet (50 mg total) by mouth in the morning and 1 tablet (50 mg total) before bedtime. TAKE 1 TABLET BY MOUTH IN THE MORNING AND TAKE 1 TABLET BEFORE BEDTIME. Yes Not In System Ref Prov cyclobenzaprine (FLEXERIL) 10 mg tablet Take 1 tablet (10 mg total) by mouth 2 (two) times a day asneeded for muscle spasms. Patient not taking: Reported on 11/20/2023 10/04/23 LONG [place] Current Medications: acetaminophen, 1,000 mg, oral, Q6H BASILIA atorvastatin, 40 mg, oral, Daily cefTRIAXone (ROCEPHIN) IV, 2,000 mg, intravenous, Q24H FLUoxetine, 20 mg, oral, Daily insulin glargine, 10 Units, subcutaneous, BID insulin lispro, 2-16 Units, subcutaneous, Q6H metoprolol tartrate, 25 mg, oral, BID metroNIDAZOLE, 500 mg, intravenous, Q12H pantoprazole, 40 mg, oral, Daily sodium chloride, 3 mL, intravenous, Q12H BASILIA topiramate, 25 mg, oral, BID PRNs: calcium gluconate, 3,000 mg, PRN calcium gluconate, 4,000 mg, PRN calcium gluconate, 2,000 mg, PRN dextrose, 15 g, PRN dextrose 5 % in water, 100 mL/hr, Continuous PRN dextrose 50 % in water (D50W), 25 mL, PRN glucagon (human recombinant), 1 mg, PRN HYDROmorphone, 0.5 mg, Q3H PRN magnesium sulfate, 2,000 mg, PRN magnesium sulfate, 4,000 mg, PRN ondansetron, 4 mg, Q6H PRN oxyCODONE, 5 mg, Q6H PRN Or oxyCODONE, 10 mg, Q6H PRN potassium chloride, 30-40 mEq, PRN Or potassium chloride, 30-40 mEq, PRN sodium phosphate IV, 20 mmol, PRN Or sodium phosphate IV - central line, 20 mmol, PRN Or sod phos di, mono-K phos mono, 2 tablet, PRN sodium chloride, 3 mL, PRN sodium chloride, 25 mL, PRN sodium chloride 0.9 %, 20 mL/hr, Continuous PRN SUMAtriptan, 50 mg, Once PRN REVIEW OF SYSTEMS See HPI, otherwise ROS negative as below CONSTITUTIONAL: negative HEENT: negative RESPIRATORY: negative CARDIOVASCULAR: negative GASTROINTESTINAL: as in HPI GENITOURINARY: negative INTEGUMENT/BREAST: negative HEMATOLOGIC/LYMPHATIC: negative ALLERGIC/IMMUNOLOGIC: negative ENDOCRINE: negative MUSCULOSKELETAL: negative NEUROLOGICAL: negative BEHAVIOR/PSYCH: negative OBJECTIVE DATA Vitals: BP 112/55 Pulse 73 Temp 36.7 C (98.1 F) (Oral) Resp 14 Wt 128.3 kg (282 lb 13.6 oz) SpO2 96% BMI 40.58 kg/m GEN: alert and oriented x3, NAD HEENT: EOMI, PERRL, oropharynx non-erythematous without exudate, no oral lesions LYMPH: no lad CV: RRR, no murmur, rub, gallop, no edema PULM: CTAB, symmetric chest rise, no accessory muscle use ABD: soft, non-tender, non-distended, +BS NEURO: no focal deficits, moves all 4 extremities spontaneously SKIN: no rashes PSYCH: normal affect LABS AND IMAGING CBC: Lab Results Component Value Date WBC 9.9 11/25/2023 HGB 13.6 11/25/2023 HCT 39.7 11/25/2023 MCV 98 11/25/2023 RDW 15.7 (H) 11/25/2023 PLT 216 11/25/2023 CMP: Lab Results Component Value Date K 4.2 11/25/2023 CL 106 11/25/2023 CO2 18 (L) 11/25/2023 BUN 11 11/25/2023 GLU 146 (H) 11/25/2023 GLU 156 (H) 11/25/2023 Lipase: No components found for: LIP Amylase: No results found for: KORY Ionized Calcium: No components found for: IONCA Magnesium: Lab Results Component Value Date MG 1.8 11/25/2023 Phosphorus: No components found for: PO4 PT/INR: Lab Results Component Value Date INR 1.1 11/25/2023 TSH: Lab Results Component Value Date TSH 1.24 11/12/2021 VITAMIN B12: No components found for: B12 FOLATE: No results found for: FOLATE IRON: No results found for: FE Iron Saturation: No components found for: PERCENTFESAT TIBC: No results found for: TIBC FERRITIN: No results found for: FERRITIN MICRO Blood Culture: No components found for: CBLOOD , CFUNGUSBL Stool Culture: No components found for: CSTOOL IMAGING: ASSESSMENT AND PLAN Boo Capps is a 63 y.o. male who has past medical history CKD 3, MAYO, recent robotic assisted laparoscopic subtotal cholecystectomy with drainage of gallbladder abscess 11/23/2023. Patient was transferred to [facility] due to concern for bile leak. Patient initially presented to outside hospital ED with abdominal pain 11/20/2023. He has been having difficulty with eating subsequent to abdominal pain for several months. [facility]. Patient was taken to the OR 11/23/2023, laparoscopic subtotal cholecystectomy with drainage of gallbladder abscess was performed. There was an intraoperative EGD to assess for cholecystoduodenal fistula, which appeared to be absent at thetime. Drain was left in place, which currently has bilious output. Patient has 30 cc of output reported 11/23, with 270 cc of output today. Labs today are without evidence of leukocytosis, there was mild elevation in total bilirubin to 1.3. Patient denies anticoagulant, antiplatelet use, prior gastric bypass. Assessment: Cholecystitis status post subtotal cholecystectomy and drainage of gallbladder abscess 11/23/2023 Concern for bile leak Plan: We will obtain bilirubin level from CLAUDIO drain Please hold DVT prophylaxis in the event of ERCP, timing to be determined, likely 11/25 Continue to trend LFTs Okay for regular diet from a GI perspective, with NPO at midnight. Antibiotics and diet as per General surgery team This consult will be discussed with attending physician Dr. Patricia. If you have any questions please feel free to contact the GI Service. Thank you for allowing us to participate in the care of Boo Capps. 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 The patient was examined and there are no changes to the H&P. Plan for ERCP today. Cosigned by Rafael Patricia MD at 11/26/2023 2:10 PM EDT Associated attestation - Rafael Patricia MD - 11/26/2023 2:10 PM EDT H&P reviewed. The patient was examined and there are no changes to the H&P. Source Note - Ignacia Castillo DO - 11/25/2023 12:17 PM EDT [facility] Teaching GI Service Initial Gastroenterology/Hepatology Consultation Note IDENTIFYING DATA PATIENT: Boo Capps ADMIT DATE: 11/25/2023 TIME OF EVALUATION: 11/25/2023 12:17 PM Reason for Consult: Bile leak HISTORY OF PRESENT ILLNESS Boo Capps is a 63 y.o. male who has past medical history CKD 3, MAYO, recent robotic assisted laparoscopic subtotal cholecystectomy with drainage of gallbladder abscess 11/23/2023. Patient was transferred to [facility] due to concern for bile leak. Patient initially presented to outside hospital ED with abdominal pain 11/20/2023. He has been having difficulty with eating subsequent to abdominal pain for several months. [facility]. Patient was taken to the OR 11/23/2023, laparoscopic subtotal cholecystectomy with drainage of gallbladder abscess was performed. There was an intraoperative EGD to assess for cholecystoduodenal fistula, which appeared to be absent at thetime. Drain was left in place, which currently has bilious output. Patient has 30 cc of output reported 11/23, with 270 cc of output today. Labs today are without evidence of leukocytosis, there was mild elevation in total bilirubin to 1.3. GI HISTORY SUMMARY TABLE Last EGD Last colonoscopy Primary GI physician PAST MEDICAL, SURGICAL, FAMILY, and SOCIAL HISTORY Past Medical History: Diagnosis Date Anxiety Bile leak 11/25/2023 Chronic back pain Depression Diabetes mellitus type 2, controlled ([facility]) GERD (gastroesophageal reflux disease) Migraines Visual impairment Past Surgical History: Procedure Laterality Date DAVINCI CHOLECYSTECTOMY N/A 11/23/2023 Performed by Anahy Cooper MD at [facility] No family history on file. Social History: Social History Tobacco Use Smoking status: Never Smokeless tobacco: Never Vaping Use Vaping status: Never Used Substance Use Topics Alcohol use: Not Currently Drug use: Never MEDICATIONS Allergies: No Known Allergies Home Medications: Prior to Admission medications Medication Sig Start Date End Date Taking? Authorizing Provider albuterol (PROVENTIL HFA;VENTOLIN HFA) 90 mcg/actuation inhaler Inhale 2 puffs every 4 (four) hoursas needed. 11/12/23 Yes Not In System Ref Prov atorvastatin (LIPITOR) 40 mg tablet Take 1 tablet (40 mg total) by mouth in the morning. Yes Not InSystem Ref Prov clonazePAM (KlonoPIN) 2 mg tablet Take 1 tablet (2 mg total) by mouth Three times daily as needed for anxiety. 09/29/23 Yes Not In System Ref Prov dicyclomine (BENTYL) 20 mg tablet Take 1 tablet (20 mg total) by mouth 4 (four) times a day as needed. Yes Not In System Ref Prov empagliflozin (JARDIANCE) 25 mg tablet tablet Take 1 tablet (25 mg total) by mouth in the morning. 09/07/23 Yes Not In System Ref Prov furosemide (LASIX) 40 mg tablet Take 1 tablet (40 mg total) by mouth daily. 10/16/21 02/21/24 Yes Not In System Ref Prov glipiZIDE (GLUCOTROL) 10 mg tablet Take 2 tablets (20 mg total) by mouth in the morning and 2 tablets (20 mg total) in the evening. Take before meals. Yes Not In System Ref Prov metFORMIN (GLUCOPHAGE) 500 mg tablet Take 1 tablet (500 mg total) by mouth in the morning and 1 tablet (500 mg total) in the evening. Take with meals. Yes Not In System Ref Prov omeprazole (PriLOSEC) 40 mg capsule Take 1 capsule (40 mg total) by mouth every morning before breakfast. 09/04/23 Yes Not In System Ref Prov OZEMPIC 2 mg/dose (8 mg/3 mL) pen injector Inject 2 mg under the skin once a week. Yes Not In System Ref Prov SUMAtriptan (IMITREX) 50 mg tablet Take 1 tablet (50 mg total) by mouth once as needed for migraine. 01/29/23 Yes Not In System Ref Prov topiramate (TOPAMAX) 50 mg tablet Take 1 tablet (50 mg total) by mouth in the morning and 1 tablet (50 mg total) before bedtime. TAKE 1 TABLET BY MOUTH IN THE MORNING AND TAKE 1 TABLET BEFORE BEDTIME. Yes Not In System Ref Prov cyclobenzaprine (FLEXERIL) 10 mg tablet Take 1 tablet (10 mg total) by mouth 2 (two) times a day asneeded for muscle spasms. Patient not taking: Reported on 11/20/2023 10/04/23 LONG Simpson Current Medications: acetaminophen, 1,000 mg, oral, Q6H BASILIA atorvastatin, 40 mg, oral, Daily cefTRIAXone (ROCEPHIN) IV, 2,000 mg, intravenous, Q24H FLUoxetine, 20 mg, oral, Daily insulin glargine, 10 Units, subcutaneous, BID insulin lispro, 2-16 Units, subcutaneous, Q6H metoprolol tartrate, 25 mg, oral, BID metroNIDAZOLE, 500 mg, intravenous, Q12H pantoprazole, 40 mg, oral, Daily sodium chloride, 3 mL, intravenous, Q12H BASILIA topiramate, 25 mg, oral, BID PRNs: calcium gluconate, 3,000 mg, PRN calcium gluconate, 4,000 mg, PRN calcium gluconate, 2,000 mg, PRN dextrose, 15 g, PRN dextrose 5 % in water, 100 mL/hr, Continuous PRN dextrose 50 % in water (D50W), 25 mL, PRN glucagon (human recombinant), 1 mg, PRN HYDROmorphone, 0.5 mg, Q3H PRN magnesium sulfate, 2,000 mg, PRN magnesium sulfate, 4,000 mg, PRN ondansetron, 4 mg, Q6H PRN oxyCODONE, 5 mg, Q6H PRN Or oxyCODONE, 10 mg, Q6H PRN potassium chloride, 30-40 mEq, PRN Or potassium chloride, 30-40 mEq, PRN sodium phosphate IV, 20 mmol, PRN Or sodium phosphate IV - central line, 20 mmol, PRN Or sod phos di, mono-K phos mono, 2 tablet, PRN sodium chloride, 3 mL, PRN sodium chloride, 25 mL, PRN sodium chloride 0.9 %, 20 mL/hr, Continuous PRN SUMAtriptan, 50 mg, Once PRN REVIEW OF SYSTEMS See HPI, otherwise ROS negative as below CONSTITUTIONAL: negative HEENT: negative RESPIRATORY: negative CARDIOVASCULAR: negative GASTROINTESTINAL: as in HPI GENITOURINARY: negative INTEGUMENT/BREAST: negative HEMATOLOGIC/LYMPHATIC: negative ALLERGIC/IMMUNOLOGIC: negative ENDOCRINE: negative MUSCULOSKELETAL: negative NEUROLOGICAL: negative BEHAVIOR/PSYCH: negative OBJECTIVE DATA Vitals: BP 112/55 Pulse 73 Temp 36.7 C (98.1 F) (Oral) Resp 14 Wt 128.3 kg (282 lb 13.6 oz) SpO2 96% BMI 40.58 kg/m GEN: alert and oriented x3, NAD HEENT: EOMI, PERRL, oropharynx non-erythematous without exudate, no oral lesions LYMPH: no lad CV: RRR, no murmur, rub, gallop, no edema PULM: CTAB, symmetric chest rise, no accessory muscle use ABD: soft, non-tender, non-distended, +BS NEURO: no focal deficits, moves all 4 extremities spontaneously SKIN: no rashes PSYCH: normal affect LABS AND IMAGING CBC: Lab Results Component Value Date WBC 9.9 11/25/2023 HGB 13.6 11/25/2023 HCT 39.7 11/25/2023 MCV 98 11/25/2023 RDW 15.7 (H) 11/25/2023 PLT 216 11/25/2023 CMP: Lab Results Component Value Date K 4.2 11/25/2023 CL 106 11/25/2023 CO2 18 (L) 11/25/2023 BUN 11 11/25/2023 GLU 146 (H) 11/25/2023 GLU 156 (H) 11/25/2023 Lipase: No components found for: LIP Amylase: No results found for: KORY Ionized Calcium: No components found for: IONCA Magnesium: Lab Results Component Value Date MG 1.8 11/25/2023 Phosphorus: No components found for: PO4 PT/INR: Lab Results Component Value Date INR 1.1 11/25/2023 TSH: Lab Results Component Value Date TSH 1.24 11/12/2021 VITAMIN B12: No components found for: B12 FOLATE: No results found for: FOLATE IRON: No results found for: FE Iron Saturation: No components found for: PERCENTFESAT TIBC: No results found for: TIBC FERRITIN: No results found for: FERRITIN MICRO Blood Culture: No components found for: CBLOOD , CFUNGUSBL Stool Culture: No components found for: CSTOOL IMAGING: ASSESSMENT AND PLAN Boo Capps is a 63 y.o. male who has past medical history CKD 3, MAYO, recent robotic assisted laparoscopic subtotal cholecystectomy with drainage of gallbladder abscess 11/23/2023. Patient was transferred to [facility] due to concern for bile leak. Patient initially presented to outside hospital ED with abdominal pain 11/20/2023. He has been having difficulty with eating subsequent to abdominal pain for several months. [facility]. Patient was taken to the OR 11/23/2023, laparoscopic subtotal cholecystectomy with drainage of gallbladder abscess was performed. There was an intraoperative EGD to assess for cholecystoduodenal fistula, which appeared to be absent at thetime. Drain was left in place, which currently has bilious output. Patient has 30 cc of output reported 11/23, with 270 cc of output today. Labs today are without evidence of leukocytosis, there was mild elevation in total bilirubin to 1.3. Patient denies anticoagulant, antiplatelet use, prior gastric bypass. Assessment: Cholecystitis status post subtotal cholecystectomy and drainage of gallbladder abscess 11/23/2023 Concern for bile leak Plan: We will obtain bilirubin level from CLAUDIO drain Please hold DVT prophylaxis in the event of ERCP, timing to be determined, likely 11/25 Continue to trend LFTs Okay for regular diet from a GI perspective, with NPO at midnight. Antibiotics and diet as per General surgery team This consult will be discussed with attending physician Dr. Patricia. If you have any questions please feel free to contact the GI Service. Thank you for allowing us to participate in the care of Boo Capps. [facility] GI Service 6 am to 4pm weekdays in house 4 pm to 6 am or weekends please contact the outside operator to page the fellow conche loader and unloader Cosigned by Rafael Patricia MD at 11/25/2023 4:26 PM EDT [facility] Plan of care note * Plan of Care - Heidi Cortez RN - 11/26/2023 12:25 AM EDT Problem: Safety Goal: Patient will be injury free during hospitalization Description: INTERVENTIONS: 1. Assess patient's risk for falls and implement fall prevention plan of care per policy 2. Provide and maintain a safe environment 3. Proper use of double Identifiers 4. Medication administration using the 5 rights 5. Hand hygiene 6. Specimens are labeled at the bedside 7. Instruct patient/ patient account retention representative about use of safety devices 8. Include patient/ patient account retention representative in decisions related to safety Outcome: Progressing Note: Evaluation of progress towards goal: NEEDS REINFORCEMENT ON SAFETY. NO FALL OR INJURY Problem: Infection Goal: Absence of infection during hospitalization Description: Interventions: 1. Assess and monitor for signs and symptoms of infection 2. Monitor lab/diagnostic results 3. Monitor all insertion sites i.e., indwelling lines, tubes and drains 4. Monitor endotracheal (as able) and nasal secretions for changes in amount and color 5. Administer medications as ordered 6. Instruct and encourage patient and family to use good hand hygiene technique 7. Identify and instruct patient/patient account retention representative in use of appropriate isolation precautionsfor identified infection/symptoms 8. Provide and discuss with patient/patient account retention representative on educational MDRO sheet 9. Encourage and monitor nutritional status daily and consult production foreman if indicated 10. Implement neutropenic guidelines as needed 11. Review exposure to history of communicable disease and recent travel history on admission 12. Encourage annual influenza vaccine 13. Encourage pneumonia vaccine Outcome: Progressing Note: Evaluation of progress towards goal: afebrile, no signs of infection [facility]10[facility] Progress note* PT/OT/NUTRITION CONSULTANT - Aleksandra Samaniego OT/Char - 11/25/2023 12:29 PM EDT Occupational Therapy Evaluation Discharge Recommendations OT Recommendations : Home Home Recommendations: 24 hour caregiver support for: (ADL and home tasks from spouse and HHC) Post Discharge Therapy Recommendations: Home Occupational Therapy Therapy Plan Need for skilled Occupational Therapy to address deficits in ADL independence and functional mobility due to a status decline resulting from admission on 11/25/23, Patient initially presented to outside hospital ED with abdominal pain 11/20/2023. He has been having difficulty with eating subsequentto abdominal pain for several months. 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 Patient was taken to the OR 11/23/2023, laparoscopic subtotal cholecystectomy with drainage of gallbladder abscess was performed. There was an intraoperative EGD to assess for cholecystoduodenal fistula, which appeared to be absent at the time. Drain was left in place, which currently has bilious output. GI consulted for further work up Diagnosed with bile leak Pt lives with spouse and was fairly independent at baseline 6 Clicks: Daily Activity Putting on and taking off regular lower body clothing?: A little Bathing (including washing, rinsing, drying)?: A little Toileting, which includes using toilet, bedpan or urinal?: A little Putting on and taking off regular upper body clothing?: A little Taking care of personal grooming such as brushing teeth?: A little Eating meals?: None Scoring Daily Activity Raw Score: 19 CMS G Code Modifier: CK Past Medical History: Diagnosis Date Anxiety Bile leak 11/25/2023 Chronic back pain Depression Diabetes mellitus type 2, controlled ([facility]) GERD (gastroesophageal reflux disease) Migraines Visual impairment Past Surgical History: Procedure Laterality Date DAVINCI CHOLECYSTECTOMY N/A 11/23/2023 Performed by Anahy Cooper MD at [facility] No chief complaint on file. OT Treatment/Interventions: ADL retraining, Functional transfer training, UE strengthening/ROM, Endurance training, Patient/family training, Balance, Bed mobility, Compensatory technique education, Functional activities OT Frequency: 4-5days/week OT Duration: LOS Assessment Patient Assessment Therapy Problem List: Decreased ADL status, Decreased balance, Decreased cognition, Decreased endurance, Decreased fine motor, Decreased gross motor, Decreased high-level ADLs, Decreased mobility, Decreased safe judgement during ADL, Decreased self-care trans, Decreased UE strength Patient Response to Treatment: Tolerated evaluation without adverse reaction Mood/Affect: Appropriate for circumstances Rehab Prognosis: Good, With continued OT status post acute discharge Visit RN Communication: Yes Medical Record Reviewed: Yes OT Type of Visit: Evaluation Precautions Activity: pass early mobility Equipment: RW, gait belt, IV, CLAUDIO drain Telemetry/Kitchenwhere Maker: Yes Oxygen Used: room air Other: fall risk Pain Assessment Pain Assessment: No/denies pain Home Living Type of Home: Apartment Home Layout: (3rd level) Stairs to Enter: elevator Bathroom Shower/Tub: Tub/shower unit Bathroom Toilet: Standard Home Equipment: (no dme) Prior Function Lives With: Spouse Receives Help From: Home health (HHC aide assist with transportation and money as needed) Level of Mobility: Independent with ADLs and functional transfers or gait Homemaking Assistance: (assist spouse) ADL / IADL Hand Dominance: Right Eating Assistance: (NPO - physically able to complete) Grooming Assistance: Setup Bathing/Showering Assistance: Contact guard assist Toilet/Commode Assistance: Contact guard assist UE Dressing Assistance: Contact guard assist LE Dressing Assistance: Contact guard assist Other: use of RW for support with moiblity and ADL tasks Home Management - IADL Other: use of RW for support with moiblity and ADL tasks Hearing / Speech / Vision Hearing: Within Functional Limits Speech: Within Functional Limits Current Vision: Wears glasses all the time Cognition Overall Cognitive Status: (likely at baseline) Sensation Overall Sensation Status: Consistent with premorbid status (BLE numbness) Bed Mobility Other: up in recliner at start and end of session with call light Transfers Sit to Stand: Contact guard assist Stand to Sit: Contact guard assist Other: cues to hand placement and safety with RW Gait Gait Assistance: Contact guard assist Assistive Device: Rolling walker Gait Distance: 60' x 2 Balance Sitting Balance: Static: Good Sitting Balance: Dynamic: Fair Standing Balance: Static: Fair Standing Balance: Dynamic: Fair Other: BUE support on RW RUE Assessment: Within Functional Limits LUE Assessment: Within Functional Limits Activity Tolerance Endurance: Tolerates <30 minutes activity WITHOUT vital sign changes Other: tolerated well Plan Occupational Therapy Care Plan Occupational Therapy Care Plan (Active) Template: OT - Occupational Therapy Problem: Activity Tolerance Dates: Start: 11/25/23 Disciplines: OT Goal: No limitations to activity tolerance Dates: Start: 11/25/23 Expected End: 12/18/23 Description: Goal Description: Disciplines: OT Problem: Bed Mobility Dates: Start: 11/25/23 Disciplines: OT Goal: Patient will perform bed mobility with Modified [place] Dates: Start: 11/25/23 Expected End: 12/18/23 Description: Goal Description: Disciplines: OT Problem: Functional Mobility Dates: Start: 11/25/23 Disciplines: OT Goal: Patient will perform functional mobility with Modified [place] Dates: Start: 11/25/23 Expected End: 12/18/23 Description: Goal Description: Disciplines: OT Problem: Other (Customize) Dates: Start: 11/25/23 Disciplines: OT Goal: Improve Dates: Start: 11/25/23 Expected End: 12/18/23 Description: Pt will complete all areas of ADL Tasks at Mod I with use of DME as needed and good safety awareness Disciplines: OT Problem: Sitting Balance Dates: Start: 11/25/23 Disciplines: OT Goal: Improve balance to normal Dates: Start: 11/25/23 Expected End: 12/18/23 Description: Static Dynamic Disciplines: OT Problem: Standing Balance Dates: Start: 11/25/23 Disciplines: OT Goal: Improve balance to good Dates: Start: 11/25/23 Expected End: 12/18/23 Description: Static Dynamic Disciplines: OT Problem: Strength Dates: Start: 11/25/23 Disciplines: OT Goal: Improve strength Dates: Start: 11/25/23 Expected End: 12/18/23 Description: Pt will tolerate BUE HEP to progress stamina to care for self Disciplines: OT Problem: Transfers Dates: Start: 11/25/23 Disciplines: OT Goal: Patient will perform transfers with Modified [place] Dates: Start: 11/25/23 Expected End: 12/18/23 Description: Goal Description: Disciplines: OT Occupational Therapy Care Plan (Resolved) There are no resolved problems. Principal Problem: Bile leak Oree [id number] Consult note* Ignacia Castillo, - 11/25/2023 12:17 PM EDTAssociated Order(s): IP CONSULT TO GASTROENTEROLOGY [facility] Teaching GI Service Initial Gastroenterology/Hepatology Consultation Note IDENTIFYING DATA PATIENT: Boo Capps ADMIT DATE: 11/25/2023 TIME OF EVALUATION: 11/25/2023 12:17 PM Reason for Consult: Bile leak HISTORY OF PRESENT ILLNESS Boo Capps is a 63 y.o. male who has past medical history CKD 3, MAYO, recent robotic assisted laparoscopic subtotal cholecystectomy with drainage of gallbladder abscess 11/23/2023. Patient was transferred to [facility] due to concern for bile leak. Patient initially presented to outside hospital ED with abdominal pain 11/20/2023. He has been having difficulty with eating subsequent to abdominal pain for several months. [facility]. Patient was taken to the OR 11/23/2023, laparoscopic subtotal cholecystectomy with drainage of gallbladder abscess was performed. There was an intraoperative EGD to assess for cholecystoduodenal fistula, which appeared to be absent at thetime. Drain was left in place, which currently has bilious output. Patient has 30 cc of output reported 11/23, with 270 cc of output today. Labs today are without evidence of leukocytosis, there was mild elevation in total bilirubin to 1.3. GI HISTORY SUMMARY TABLE Last EGD Last colonoscopy Primary GI physician PAST MEDICAL, SURGICAL, FAMILY, and SOCIAL HISTORY Past Medical History: Diagnosis Date Anxiety Bile leak 11/25/2023 Chronic back pain Depression Diabetes mellitus type 2, controlled ([facility]) GERD (gastroesophageal reflux disease) Migraines Visual impairment Past Surgical History: Procedure Laterality Date DAVINCI CHOLECYSTECTOMY N/A 11/23/2023 Performed by Anahy Cooper MD at [facility] No family history on file. Social History: Social History Tobacco Use Smoking status: Never Smokeless tobacco: Never Vaping Use Vaping status: Never Used Substance Use Topics Alcohol use: Not Currently Drug use: Never MEDICATIONS Allergies: No Known Allergies Home Medications: Prior to Admission medications Medication Sig Start Date End Date Taking? Authorizing Provider albuterol (PROVENTIL HFA;VENTOLIN HFA) 90 mcg/actuation inhaler Inhale 2 puffs every 4 (four) hoursas needed. 11/12/23 Yes Not In System Ref Prov atorvastatin (LIPITOR) 40 mg tablet Take 1 tablet (40 mg total) by mouth in the morning. Yes Not InSystem Ref Prov clonazePAM (KlonoPIN) 2 mg tablet Take 1 tablet (2 mg total) by mouth Three times daily as needed for anxiety. 09/29/23 Yes Not In System Ref Prov dicyclomine (BENTYL) 20 mg tablet Take 1 tablet (20 mg total) by mouth 4 (four) times a day as needed. Yes Not In System Ref Prov empagliflozin (JARDIANCE) 25 mg tablet tablet Take 1 tablet (25 mg total) by mouth in the morning. 09/07/23 Yes Not In System Ref Prov furosemide (LASIX) 40 mg tablet Take 1 tablet (40 mg total) by mouth daily. 10/16/21 02/21/24 Yes Not In System Ref Prov glipiZIDE (GLUCOTROL) 10 mg tablet Take 2 tablets (20 mg total) by mouth in the morning and 2 tablets (20 mg total) in the evening. Take before meals. Yes Not In System Ref Prov metFORMIN (GLUCOPHAGE) 500 mg tablet Take 1 tablet (500 mg total) by mouth in the morning and 1 tablet (500 mg total) in the evening. Take with meals. Yes Not In System Ref Prov omeprazole (PriLOSEC) 40 mg capsule Take 1 capsule (40 mg total) by mouth every morning before breakfast. 09/04/23 Yes Not In System Ref Prov OZEMPIC 2 mg/dose (8 mg/3 mL) pen injector Inject 2 mg under the skin once a week. Yes Not In System Ref Prov SUMAtriptan (IMITREX) 50 mg tablet Take 1 tablet (50 mg total) by mouth once as needed for migraine. 01/29/23 Yes Not In System Ref Prov topiramate (TOPAMAX) 50 mg tablet Take 1 tablet (50 mg total) by mouth in the morning and 1 tablet (50 mg total) before bedtime. TAKE 1 TABLET BY MOUTH IN THE MORNING AND TAKE 1 TABLET BEFORE BEDTIME. Yes Not In System Ref Prov cyclobenzaprine (FLEXERIL) 10 mg tablet Take 1 tablet (10 mg total) by mouth 2 (two) times a day asneeded for muscle spasms. Patient not taking: Reported on 11/20/2023 10/04/23 Megan Kirkland APRN-MAXI Current Medications: acetaminophen, 1,000 mg, oral, Q6H BASILIA atorvastatin, 40 mg, oral, Daily cefTRIAXone (ROCEPHIN) IV, 2,000 mg, intravenous, Q24H FLUoxetine, 20 mg, oral, Daily insulin glargine, 10 Units, subcutaneous, BID insulin lispro, 2-16 Units, subcutaneous, Q6H metoprolol tartrate, 25 mg, oral, BID metroNIDAZOLE, 500 mg, intravenous, Q12H pantoprazole, 40 mg, oral, Daily sodium chloride, 3 mL, intravenous, Q12H BASILIA topiramate, 25 mg, oral, BID PRNs: calcium gluconate, 3,000 mg, PRN calcium gluconate, 4,000 mg, PRN calcium gluconate, 2,000 mg, PRN dextrose, 15 g, PRN dextrose 5 % in water, 100 mL/hr, Continuous PRN dextrose 50 % in water (D50W), 25 mL, PRN glucagon (human recombinant), 1 mg, PRN HYDROmorphone, 0.5 mg, Q3H PRN magnesium sulfate, 2,000 mg, PRN magnesium sulfate, 4,000 mg, PRN ondansetron, 4 mg, Q6H PRN oxyCODONE, 5 mg, Q6H PRN Or oxyCODONE, 10 mg, Q6H PRN potassium chloride, 30-40 mEq, PRN Or potassium chloride, 30-40 mEq, PRN sodium phosphate IV, 20 mmol, PRN Or sodium phosphate IV - central line, 20 mmol, PRN Or sod phos di, mono-K phos mono, 2 tablet, PRN sodium chloride, 3 mL, PRN sodium chloride, 25 mL, PRN sodium chloride 0.9 %, 20 mL/hr, Continuous PRN SUMAtriptan, 50 mg, Once PRN REVIEW OF SYSTEMS See HPI, otherwise ROS negative as below CONSTITUTIONAL: negative HEENT: negative RESPIRATORY: negative CARDIOVASCULAR: negative GASTROINTESTINAL: as in HPI GENITOURINARY: negative INTEGUMENT/BREAST: negative HEMATOLOGIC/LYMPHATIC: negative ALLERGIC/IMMUNOLOGIC: negative ENDOCRINE: negative MUSCULOSKELETAL: negative NEUROLOGICAL: negative BEHAVIOR/PSYCH: negative OBJECTIVE DATA Vitals: BP 112/55 Pulse 73 Temp 36.7 C (98.1 F) (Oral) Resp 14 Wt 128.3 kg (282 lb 13.6 oz) SpO2 96% BMI 40.58 kg/m GEN: alert and oriented x3, NAD HEENT: EOMI, PERRL, oropharynx non-erythematous without exudate, no oral lesions LYMPH: no lad CV: RRR, no murmur, rub, gallop, no edema PULM: CTAB, symmetric chest rise, no accessory muscle use ABD: soft, non-tender, non-distended, +BS NEURO: no focal deficits, moves all 4 extremities spontaneously SKIN: no rashes PSYCH: normal affect LABS AND IMAGING CBC: Lab Results Component Value Date WBC 9.9 11/25/2023 HGB 13.6 11/25/2023 HCT 39.7 11/25/2023 MCV 98 11/25/2023 RDW 15.7 (H) 11/25/2023 PLT 216 11/25/2023 CMP: Lab Results Component Value Date K 4.2 11/25/2023 CL 106 11/25/2023 CO2 18 (L) 11/25/2023 BUN 11 11/25/2023 GLU 146 (H) 11/25/2023 GLU 156 (H) 11/25/2023 Lipase: No components found for: LIP Amylase: No results found for: KORY Ionized Calcium: No components found for: IONCA Magnesium: Lab Results Component Value Date MG 1.8 11/25/2023 Phosphorus: No components found for: PO4 PT/INR: Lab Results Component Value Date INR 1.1 11/25/2023 TSH: Lab Results Component Value Date TSH 1.24 11/12/2021 VITAMIN B12: No components found for: B12 FOLATE: No results found for: FOLATE IRON: No results found for: FE Iron Saturation: No components found for: PERCENTFESAT TIBC: No results found for: TIBC FERRITIN: No results found for: FERRITIN MICRO Blood Culture: No components found for: CBLOOD , CFUNGUSBL Stool Culture: No components found for: CSTOOL IMAGING: ASSESSMENT AND PLAN Boo Capps is a 63 y.o. male who has past medical history CKD 3, MAYO, recent robotic assisted laparoscopic subtotal cholecystectomy with drainage of gallbladder abscess 11/23/2023. Patient was transferred to [facility] due to concern for bile leak. Patient initially presented to outside hospital ED with abdominal pain 11/20/2023. He has been having difficulty with eating subsequent to abdominal pain for several months. [facility]. Patient was taken to the OR 11/23/2023, laparoscopic subtotal cholecystectomy with drainage of gallbladder abscess was performed. There was an intraoperative EGD to assess for cholecystoduodenal fistula, which appeared to be absent at thetime. Drain was left in place, which currently has bilious output. Patient has 30 cc of output reported 11/23, with 270 cc of output today. Labs today are without evidence of leukocytosis, there was mild elevation in total bilirubin to 1.3. Patient denies anticoagulant, antiplatelet use, prior gastric bypass. Assessment: Cholecystitis status post subtotal cholecystectomy and drainage of gallbladder abscess 11/23/2023 Concern for bile leak Plan: We will obtain bilirubin level from CLAUDIO drain Please hold DVT prophylaxis in the event of ERCP, timing to be determined, likely 11/25 Continue to trend LFTs Okay for regular diet from a GI perspective, with NPO at midnight. Antibiotics and diet as per General surgery team This consult will be discussed with attending physician Dr. Patricia. If you have any questions please feel free to contact the GI Service. Thank you for allowing us to participate in the care of Boo Capps. [facility] 6 am to 4pm weekdays in house 4 pm to 6 am or weekends please contact the outside operator to page the fellow conche loader and unloader Cosigned by Rafael Patricia MD at 11/25/2023 4:26 PM EDT Associated attestation - Rafael Patricia MD - 11/25/2023 4:26 PM EDT I personally saw this patient on the day of the encounter, performed the salomon portion(s) of the service and participated in the management and confirm the resident/fellow s documentation. Please note there may be additional personal documentation from me Bile leak after subtotal cholecystectomy Significant bilious output on the abdominal drain, will send for fluid bilirubin Will schedule for ERCP tomorrow and biliary stenting [facility]10-16-20[facility] Consult note* Ignacia Castillo DO - 11/25/2023 12:17 PM EDTAssociated Order(s): IP CONSULT TO GASTROENTEROLOGY [facility] Teaching GI Service Initial Gastroenterology/Hepatology Consultation Note IDENTIFYING DATA PATIENT: Boo Capps ADMIT DATE: 11/25/2023 TIME OF EVALUATION: 11/25/2023 12:17 PM Reason for Consult: Bile leak HISTORY OF PRESENT ILLNESS Boo Capps is a 63 y.o. male who has past medical history CKD 3, MAYO, recent robotic assisted laparoscopic subtotal cholecystectomy with drainage of gallbladder abscess 11/23/2023. Patient was transferred to [facility] due to concern for bile leak. Patient initially presented to outside hospital ED with abdominal pain 11/20/2023. He has been having difficulty with eating subsequent to abdominal pain for several months. [facility]. Patient was taken to the OR 11/23/2023, laparoscopic subtotal cholecystectomy with drainage of gallbladder abscess was performed. There was an intraoperative EGD to assess for cholecystoduodenal fistula, which appeared to be absent at thetime. Drain was left in place, which currently has bilious output. Patient has 30 cc of output reported 11/23, with 270 cc of output today. Labs today are without evidence of leukocytosis, there was mild elevation in total bilirubin to 1.3. GI HISTORY SUMMARY TABLE Last EGD Last colonoscopy Primary GI physician PAST MEDICAL, SURGICAL, FAMILY, and SOCIAL HISTORY Past Medical History: Diagnosis Date Anxiety Bile leak 11/25/2023 Chronic back pain Depression Diabetes mellitus type 2, controlled ([facility]) GERD (gastroesophageal reflux disease) Migraines Visual impairment Past Surgical History: Procedure Laterality Date DAVINCI CHOLECYSTECTOMY N/A 11/23/2023 Performed by Anahy Cooper MD at [facility] No family history on file. Social History: Social History Tobacco Use Smoking status: Never Smokeless tobacco: Never Vaping Use Vaping status: Never Used Substance Use Topics Alcohol use: Not Currently Drug use: Never MEDICATIONS Allergies: No Known Allergies Home Medications: Prior to Admission medications Medication Sig Start Date End Date Taking? Authorizing Provider albuterol (PROVENTIL HFA;VENTOLIN HFA) 90 mcg/actuation inhaler Inhale 2 puffs every 4 (four) hoursas needed. 11/12/23 Yes Not In System Ref Prov atorvastatin (LIPITOR) 40 mg tablet Take 1 tablet (40 mg total) by mouth in the morning. Yes Not InSystem Ref Prov clonazePAM (KlonoPIN) 2 mg tablet Take 1 tablet (2 mg total) by mouth Three times daily as needed for anxiety. 09/29/23 Yes Not In System Ref Prov dicyclomine (BENTYL) 20 mg tablet Take 1 tablet (20 mg total) by mouth 4 (four) times a day as needed. Yes Not In System Ref Prov empagliflozin (JARDIANCE) 25 mg tablet tablet Take 1 tablet (25 mg total) by mouth in the morning. 09/07/23 Yes Not In System Ref Prov furosemide (LASIX) 40 mg tablet Take 1 tablet (40 mg total) by mouth daily. 10/16/21 02/21/24 Yes Not In System Ref Prov glipiZIDE (GLUCOTROL) 10 mg tablet Take 2 tablets (20 mg total) by mouth in the morning and 2 tablets (20 mg total) in the evening. Take before meals. Yes Not In System Ref Prov metFORMIN (GLUCOPHAGE) 500 mg tablet Take 1 tablet (500 mg total) by mouth in the morning and 1 tablet (500 mg total) in the evening. Take with meals. Yes Not In System Ref Prov omeprazole (PriLOSEC) 40 mg capsule Take 1 capsule (40 mg total) by mouth every morning before breakfast. 09/04/23 Yes Not In System Ref Prov OZEMPIC 2 mg/dose (8 mg/3 mL) pen injector Inject 2 mg under the skin once a week. Yes Not In System Ref Prov SUMAtriptan (IMITREX) 50 mg tablet Take 1 tablet (50 mg total) by mouth once as needed for migraine. 01/29/23 Yes Not In System Ref Prov topiramate (TOPAMAX) 50 mg tablet Take 1 tablet (50 mg total) by mouth in the morning and 1 tablet (50 mg total) before bedtime. TAKE 1 TABLET BY MOUTH IN THE MORNING AND TAKE 1 TABLET BEFORE BEDTIME. Yes Not In System Ref Prov cyclobenzaprine (FLEXERIL) 10 mg tablet Take 1 tablet (10 mg total) by mouth 2 (two) times a day asneeded for muscle spasms. Patient not taking: Reported on 11/20/2023 10/04/23 LONG Simpson Current Medications: acetaminophen, 1,000 mg, oral, Q6H BASILIA atorvastatin, 40 mg, oral, Daily cefTRIAXone (ROCEPHIN) IV, 2,000 mg, intravenous, Q24H FLUoxetine, 20 mg, oral, Daily insulin glargine, 10 Units, subcutaneous, BID insulin lispro, 2-16 Units, subcutaneous, Q6H metoprolol tartrate, 25 mg, oral, BID metroNIDAZOLE, 500 mg, intravenous, Q12H pantoprazole, 40 mg, oral, Daily sodium chloride, 3 mL, intravenous, Q12H BASILIA topiramate, 25 mg, oral, BID PRNs: calcium gluconate, 3,000 mg, PRN calcium gluconate, 4,000 mg, PRN calcium gluconate, 2,000 mg, PRN dextrose, 15 g, PRN dextrose 5 % in water, 100 mL/hr, Continuous PRN dextrose 50 % in water (D50W), 25 mL, PRN glucagon (human recombinant), 1 mg, PRN HYDROmorphone, 0.5 mg, Q3H PRN magnesium sulfate, 2,000 mg, PRN magnesium sulfate, 4,000 mg, PRN ondansetron, 4 mg, Q6H PRN oxyCODONE, 5 mg, Q6H PRN Or oxyCODONE, 10 mg, Q6H PRN potassium chloride, 30-40 mEq, PRN Or potassium chloride, 30-40 mEq, PRN sodium phosphate IV, 20 mmol, PRN Or sodium phosphate IV - central line, 20 mmol, PRN Or sod phos di, mono-K phos mono, 2 tablet, PRN sodium chloride, 3 mL, PRN sodium chloride, 25 mL, PRN sodium chloride 0.9 %, 20 mL/hr, Continuous PRN SUMAtriptan, 50 mg, Once PRN REVIEW OF SYSTEMS See HPI, otherwise ROS negative as below CONSTITUTIONAL: negative HEENT: negative RESPIRATORY: negative CARDIOVASCULAR: negative GASTROINTESTINAL: as in HPI GENITOURINARY: negative INTEGUMENT/BREAST: negative HEMATOLOGIC/LYMPHATIC: negative ALLERGIC/IMMUNOLOGIC: negative ENDOCRINE: negative MUSCULOSKELETAL: negative NEUROLOGICAL: negative BEHAVIOR/PSYCH: negative OBJECTIVE DATA Vitals: BP 112/55 Pulse 73 Temp 36.7 C (98.1 F) (Oral) Resp 14 Wt 128.3 kg (282 lb 13.6 oz) SpO2 96% BMI 40.58 kg/m GEN: alert and oriented x3, NAD HEENT: EOMI, PERRL, oropharynx non-erythematous without exudate, no oral lesions LYMPH: no lad CV: RRR, no murmur, rub, gallop, no edema PULM: CTAB, symmetric chest rise, no accessory muscle use ABD: soft, non-tender, non-distended, +BS NEURO: no focal deficits, moves all 4 extremities spontaneously SKIN: no rashes PSYCH: normal affect LABS AND IMAGING CBC: Lab Results Component Value Date WBC 9.9 11/25/2023 HGB 13.6 11/25/2023 HCT 39.7 11/25/2023 MCV 98 11/25/2023 RDW 15.7 (H) 11/25/2023 PLT 216 11/25/2023 CMP: Lab Results Component Value Date K 4.2 11/25/2023 CL 106 11/25/2023 CO2 18 (L) 11/25/2023 BUN 11 11/25/2023 GLU 146 (H) 11/25/2023 GLU 156 (H) 11/25/2023 Lipase: No components found for: LIP Amylase: No results found for: KORY Ionized Calcium: No components found for: IONCA Magnesium: Lab Results Component Value Date MG 1.8 11/25/2023 Phosphorus: No components found for: PO4 PT/INR: Lab Results Component Value Date INR 1.1 11/25/2023 TSH: Lab Results Component Value Date TSH 1.24 11/12/2021 VITAMIN B12: No components found for: B12 FOLATE: No results found for: FOLATE IRON: No results found for: FE Iron Saturation: No components found for: PERCENTFESAT TIBC: No results found for: TIBC FERRITIN: No results found for: FERRITIN MICRO Blood Culture: No components found for: CBLOOD , CFUNGUSBL Stool Culture: No components found for: CSTOOL IMAGING: ASSESSMENT AND PLAN Boo Capps is a 63 y.o. male who has past medical history CKD 3, MAYO, recent robotic assisted laparoscopic subtotal cholecystectomy with drainage of gallbladder abscess 11/23/2023. Patient was transferred to [facility] due to concern for bile leak. Patient initially presented to outside hospital ED with abdominal pain 11/20/2023. He has been having difficulty with eating subsequent to abdominal pain for several months. [facility]. Patient was taken to the OR 11/23/2023, laparoscopic subtotal cholecystectomy with drainage of gallbladder abscess was performed. There was an intraoperative EGD to assess for cholecystoduodenal fistula, which appeared to be absent at thetime. Drain was left in place, which currently has bilious output. Patient has 30 cc of output reported 11/23, with 270 cc of output today. Labs today are without evidence of leukocytosis, there was mild elevation in total bilirubin to 1.3. Patient denies anticoagulant, antiplatelet use, prior gastric bypass. Assessment: Cholecystitis status post subtotal cholecystectomy and drainage of gallbladder abscess 11/23/2023 Concern for bile leak Plan: We will obtain bilirubin level from CLAUDIO drain Please hold DVT prophylaxis in the event of ERCP, timing to be determined, likely 11/25 Continue to trend LFTs Okay for regular diet from a GI perspective, with NPO at midnight. Antibiotics and diet as per General surgery team This consult will be discussed with attending physician Dr. Patricia. If you have any questions please feel free to contact the GI Service. Thank you for allowing us to participate in the care of Boo Capps. [facility] GI Service 6 am to 4pm weekdays in house 4 pm to 6 am or weekends please contact the outside operator to page the fellow conche loader and unloader Cosigned by Rafael Patricia MD at 11/25/2023 4:26 PM EDT Associated attestation - Rafael Patricia MD - 11/25/2023 4:26 PM EDT I personally saw this patient on the day of the encounter, performed the salomon portion(s) of the service and participated in the management and confirm the resident/fellow s documentation. Please note there may be additional personal documentation from me Bile leak after subtotal cholecystectomy Significant bilious output on the abdominal drain, will send for fluid bilirubin Will schedule for ERCP tomorrow and [facility] note* PT/OT/NUTRITION CONSULTANT - Loreta Solomon, PT - 11/25/2023 11:55 AM EDT Physical Therapy Evaluation Discharge Recommendations PT Recommendations: Home Home Recommendations: 24 hour caregiver support for: (transportation, home mangement) Post Discharge Therapy Recommendations: Home Physical Therapy Hair Spinner Support for-: Mobility Deficits, ADL Deficits Mobility Limitation That Significantly Impairs Participation In: Toileting, Bathing within their home (recommend two wheeled walker for improved safety) Required Rationale For Walker: Cane will not resolve. Uses walker safely to mitigate the deficiency. Wheels Added To Aid With:: improved stability wtih gait 6 Clicks: Basic Mobility Turning from your back to your side while in a flat bed without using bed rails?: A little Moving from lying on your back to sitting on side of flat bed without using bed rails?: A little Moving to and from bed to a chair (including w/c)?: A little Standing up from a chair using your arms (e.g. w/c or bedside chair)?: A little To walk in hospital room?: A little Climbing 3-5 steps with a railing?: A little Scoring 6 Clicks: Basic Mobility Raw Score: 18 CMS G Code Modifier: CK Therapy Plan Need for skilled Physical Therapy to address deficits in functional mobility due to a status decline resulting from debility related to bile leak. Patient is a 63 year old male who presented to OSH 11/20/23 with abdominal pain that had waxed/waned for last several months. 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 11/23/23 went to OR and found gangrenous cholecystitis and questionable abscess with drain placement. POD 1 developed increasedabd pain and drainage with concern for bile leak. Patient transferred to [facility] 11/25/23 for GI work up. Past Medical History: Diagnosis Date Anxiety Bile leak 11/25/2023 Chronic back pain Depression Diabetes mellitus type 2, controlled ([facility]) GERD (gastroesophageal reflux disease) Migraines Visual impairment Past Surgical History: Procedure Laterality Date DAVINCI CHOLECYSTECTOMY N/A 11/23/2023 Performed by Anahy Cooper MD at [facility] PT Treatment/Interventions: Functional transfer training, UE strengthening/ROM, LE strengthening/ROM, Endurance training, Patient/family training, Equipment eval/education, Balance, Bed mobility, Gait training, Functional activities PT Frequency: 4-5days/week PT Duration: LOS Patient Response to Treatment: Tolerated evaluation without adverse reaction Assessment Patient Assessment Therapy Problem List: Decreased ADL status, Decreased balance, Decreased endurance, Decreased mobility, Decreased UE strength, Decreased LE strength, Decreased self-care trans Patient Response to Treatment: Tolerated evaluation without adverse reaction Mood/Affect: Appropriate for circumstances Rehab Prognosis: Good, With continued PT status post acute discharge Visit RN Communication: Yes Medical Record Reviewed: Yes PT Type of Visit: Evaluation Precautions Activity: pass early mobility Equipment: RW, gait belt, IV, CLAUDIO drain Telemetry/Kitchenwhere Maker: Yes Oxygen Used: room air Other: fall risk Pain Assessment Pain Assessment: No/denies pain Home Living Type of Home: Apartment (3rd floor; laundry in apartment) Stairs to Enter: elevator Bathroom Shower/Tub: Tub/shower unit Bathroom Toilet: Standard Bathroom Equipment: Other (Comment) (none) Home Equipment: Other (Comment) (Cpap) Other : independent without use of AD prior to admit, no recent falls, does not drive Prior Function Lives With: Spouse Receives Help From: Home health (assists with transportation, some home management; pt unsure of frequency) Level of Mobility: Independent with ADLs and functional transfers or gait Homemaking Assistance: Needs assistance Driving: Total assist Vocational: Retired ([employer] 24 years) Other: pt reports being independent with bathing/dressing; does cooking ADL / IADL Hand Dominance: Right Hearing / Speech / Vision Hearing: Within Functional Limits Speech: Within Functional Limits (slow responses at times) Current Vision: Wears glasses all the time Cognition Orientation Level: Oriented X4 Sensation Overall Sensation Status: Exceptions to Within Functional Limits, Consistent with premorbid status (numbness/tingling in feet- states they get cold ) Bed Mobility Other: NT- patient up in recliner at start and end of session with call light in reach Transfers Sit to Stand: Contact guard assist Stand to Sit: Contact guard assist Other: RW used for sit to stands and transfers with VCs for proper hand placement for improved safety Gait Base of Support: Wide Pattern: Decreased annita, R Decreased heel strike, L Decreased heel strike, Forward trunk Gait Assistance: Contact guard assist Assistive Device: Rolling walker Gait Distance: 60' x 2 2 Turns: Yes Other: VCs to keep body closer to walker and keep RW close when turning to sit down in chair for improved safety and stability Balance Balance Evaluation: Exceptions to Functional Limits Sitting Balance: Static: Good Sitting Balance: Dynamic: Fair (+) Standing Balance: Static: Fair Standing Balance: Dynamic: Fair (-) Other: B UE support on RW, no LOB RLE Assessment: (generalized weakness) LLE Assessment: (generalized weakness) Activity Tolerance Endurance: Tolerates <30 minutes activity WITHOUT vital sign changes Other: rest breaks prn; increased time and effort for completion of sit to stands Plan Physical Therapy Care Plan Physical Therapy Care Plan (Active) Template: PT - Physical Therapy Problem: Activity Tolerance Dates: Start: 11/25/23 Disciplines: PT Goal: Tolerate 30 minutes of activity WITH rest breaks Dates: Start: 11/25/23 Expected End: 12/23/23 Description: Goal Description: patient to tolerate 15-20 reps HEP for B LE strengthening Disciplines: PT Problem: Bed Mobility Dates: Start: 11/25/23 Disciplines: PT Goal: Patient will perform bed mobility with Stand By Assist Dates: Start: 11/25/23 Expected End: 12/23/23 Description: Goal Description: Disciplines: PT Problem: Gait Dates: Start: 11/25/23 Disciplines: PT Goal: Patient will perform gait with Stand By Assist Dates: Start: 11/25/23 Expected End: 12/23/23 Description: With___RW_,___150_feet Goal Description: Disciplines: PT Problem: Standing Balance Dates: Start: 11/25/23 Disciplines: PT Goal: Improve balance to good Dates: Start: 11/25/23 Expected End: 12/23/23 Description: Static: Fair+/Good- with 1 UE support Dynamic: Fair/Fair+ with 1 UE support Disciplines: PT Problem: Transfers Dates: Start: 11/25/23 Disciplines: PT Goal: Patient will perform transfers with Stand By Assist Dates: Start: 11/25/23 Expected End: 12/23/23 Description: Goal Description: stand pivot technique with RW Disciplines: PT Physical Therapy Care Plan (Resolved) There are no resolved problems. Principal Problem: Bile leak [facility] [employer] [id number] Progress note* Discharge Planning Note - Maya Woodson RN - 11/25/2023 8:51 AM EDT Images from the original note were not included. DISCHARGE PLANNING NOTE Services Requested: Services Requested Discharge Disposition: Home with home health services Facility/Service Name: [facility] Facility/Service Does the patient need discharge transportation arranged?: Yes Transportation Arranged: [facility] Patient choice offered: Patient declined List Provided: Patient declined Patient Declined: Other (must state reason) (had services in the past) Initial DC Assessment Completed: Yes Patient Goals: Patient/Caregiver Goals Patient/Caregiver Goals: Home with Home Assisted with Home Care (Check ALL that Apply): Other (nursing) Goals: Goals home (pt-stated) Evaluation of progress towards goal: Patient plans to discharge home with Home Health Care and withassistance from family. Patient admitted for: bile leak CN spoke with patient at bedside, introduced self and explained role. Patient lives with spouse in a third floor apartment with and elevator to get to his apartment. Patient stated that he has aide services through [employer] that they come out in the morning to assist patient and his spouse and the aidewill also transport patient to places to conduct any business. Patient would like to have [facility] at discharge due to having them in the past and patient is also requesting a rollator. B[employer]ies[employer] Specialist advised that an inquiry will be completed to [employer] to inquire if patient will qualify for a rollator. Patient stated they are independent with ADL's and currently has a CPAP for DME. Patient endorses no issue financially with being able to obtain medications or food. Patient states that they have working water, gas and electric. [facility] in [place] Per patient self report: Drug use: denies ETOH use: denies Smoking: denies PCP added to follow up provider list to receive summary of care at discharge. Based on readmission risk assessment, patient has risk score of 13 for readmission. The following arrangements have been made to help prevent readmission. D/C Plan: Patient plans to discharge home with Home Health Care and with assistance from family. Referral placed on [facility] for [facility] and [employer]. Patient stated that he will need transportation home. B[employer] Specialist will continue to follow for any discharge n eeds. - MAYA WOODSON RN 11/25/23 8:57 AM [employer]D [id number] Plan of care note* Plan of Care - Ai Salvador RN - 11/25/2023 7:56 AM EDT Problem: Pain Goal: Patient goal is pain score less than 4, able to rest, and participant in treatment plan as appropriate Description: INTERVENTIONS: 1. Encourage patient or legal account retention representative to report early pain and ask for pain medicine when needed 2. Assess pain using appropriate pain scale and include the scale used when documenting 3. Administer analgesics based on type and severity of pain and evaluate response within appropriate time frame 4. Implement non-pharmacological measures as appropriate and evaluate response 5. Consider cultural and social influences on pain and pain management 6. Notify LIP if interventions ineffective or patient reports new pain 7. Monitor vital signs including pulse ox, end-tidal CO2 based on pain intervention 8. Reassess pain per policy 9. Teach patient or legal account retention representative interventions for comforting Outcome: Progressing Note: Evaluation of progress towards goal: Medicated for pain as needed will continue to monitor Problem: Safety Goal: Patient will be injury free during hospitalization Description: INTERVENTIONS: 1. Assess patient's risk for falls and implement fall prevention plan of care per policy 2. Provide and maintain a safe environment 3. Proper use of double Identifiers 4. Medication administration using the 5 rights 5. Hand hygiene 6. Specimens are labeled at the bedside 7. Instruct patient/ patient account retention representative about use of safety devices 8. Include patient/ patient account retention representative in decisions related to safety Outcome: Progressing Note: Evaluation of progress towards goal: Bed low, locked, call light in reach. Will continue to monitor Problem: Infection Goal: Absence of infection during hospitalization Description: Interventions: 1. Assess and monitor for signs and symptoms of infection 2. Monitor lab/diagnostic results 3. Monitor all insertion sites i.e., indwelling lines, tubes and drains 5. Administer medications as ordered 6. Instruct and encourage patient and family to use good hand hygiene technique 11. Review exposure to history of communicable disease and recent travel history on admission 12. Encourage annual influenza vaccine 13. Encourage pneumonia vaccine Outcome: Progressing Note: Evaluation of progress towards goal: Patient remains free from infection, will continue to monitor Problem: Knowledge Deficit Goal: Patient/patient account retention representative demonstrates understanding of disease process, treatment plan,medications, and discharge instructions Description: INTERVENTIONS 1. Complete learning assessment and assess knowledge base 2. Provide teaching at level of understanding 3. Provide teaching via preferred learning method(s) Outcome: Progressing Note: Evaluation of progress towards goal: Patient was included in daily plan of care. Problem: Discharge Planning Goal: Discharge to post-acute care, other facility, or home with appropriate resources Description: Patient's goal is: INTERVENTIONS 1. Conduct assessment to determine patient/family and health care team treatment goals, and need for post-acute services based on payer coverage, community resources, and patient preferences, and barriers to discharge 2. Coordinate with Social work, Care Navigation, and Utilization Review to arrange appropriate level of services according to patient's needs based on patient preference and payer coverage in collaboration with the physician and health care team 3. Address psychosocial, clinical, and financial barriers to discharge as identified in assessment in conjunction with the patient/family and health care team 4. Consult appropriate ancillary services (i.e.. PT/OT/ST, etc) as needed 5. Communicate with and update the patient/family, physician, and health care team regarding progress on the discharge plan 6. Identify discharge learning needs (meds, wound care, etc). 7. Arrange for needed discharge transportation as appropriate Outcome: Progressing Note: Evaluation of progress towards goal: Progressing towards discharge Problem: Glucose Imbalance Goal: Clinical indication of glucose balance is achieved Description: Patient's goal is: INTERVENTIONS 1. Monitor blood glucose levels as ordered 2. Administer medications as ordered 3. Notify physician of ineffective treatment plan Outcome: Progressing Note: Evaluation of progress towards goal: Pts glucose levels are being monitored and treated as needed Goal: Patient's discharge needs are met Description: Patient's goal is: INTERVENTIONS 1. Assess patient for self-management skills 2. Encourage participation in diabetes management 3. Identify potential discharge barriers on admission and throughout hospital stay 4. Involve patient/S.O. in discharge planning process 5. Communicate referral to chemical educator as appropriate 6. Communicate referral to production foreman as appropriate 7. Collaborate with case management/forensic social worker for discharge needs Outcome: Progressing Note: Evaluation of progress towards goal: Discharge needs will be discussed with pt and met beforedischarge. Problem: Moderate - High Risk Fall Score Description: Cha Fall Score of =/> 25 or indicated by [facility] Assessment Goal: Patient should be free from fall Description: Interventions: 1. [place] to environment 2. Hourly rounds addressing the 4 P's (Pain, Positioning, Possessions, Potty) 3. Clear area of hazards (spills, clutter, electrical cords, unnecessary equipment) 4. Place equipment (bed & TV controls, call light, phone, urinal) within reach 5. Encourage patient to wear glasses and hearing aides as appropriate 6. Maintain bed in lowest position 7. Lock wheels on bed/wheelchair 8. Provide adequate lighting, including night light 9. Assess need for additional bedding, food/fluids, pain med's prior to sleep/routinely 10. Provide gripper slippers or personal non-skid footwear 11. Teach patient and patient account retention representative to maintain environment for safety and engage in all aspects of fall prevention program 12. Remind patient to call for help before getting out of bed 15. Evaluate and identify Safe Patient Handling Equipment needs 16. Provide supervision when out of bed or chair 18. Place adaptive equipment (cane, walker) within reach 19. Request patient account retention representative bring adaptive equipment/mobility aids from home or obtain and provide as needed 20. Consult pharmacy regarding effects of med's affecting mobility, cognition, and alternatives 21. Obtain physician order for PT if risk factors associated with mobility are present 22. Obtain physician order for OT as appropriate 24. Educate patient and patient account retention representative how to maintain a safe environment during visitationtimes (notify nurse prior to leaving bedside) Outcome: Progressing Note: Evaluation of progress towards goal: Patient remains free from falls [facility]10-16-2024 Plan of care note* Plan of Care - Julieta Lindquist RN - 11/25/2023 2:50 AM EDT Problem: Pain Goal: Patient goal is pain score less than 4, able to rest, and participant in treatment plan as appropriate Description: INTERVENTIONS: 1. Encourage patient or legal account retention representative to report early pain and ask for pain medicine when needed 2. Assess pain using appropriate pain scale and include the scale used when documenting 3. Administer analgesics based on type and severity of pain and evaluate response within appropriate time frame 4. Implement non-pharmacological measures as appropriate and evaluate response 5. Consider cultural and social influences on pain and pain management 6. Notify LIP if interventions ineffective or patient reports new pain 7. Monitor vital signs including pulse ox, end-tidal CO2 based on pain intervention 8. Reassess pain per policy 9. Teach patient or legal account retention representative interventions for comforting Outcome: Progressing Note: Evaluation of progress towards goal: Pt verbalizes pain appropriately using numerical pain scale. PRN medications available. Monitoring Problem: Safety Goal: Patient will be injury free during hospitalization Description: INTERVENTIONS: 1. Assess patient's risk for falls and implement fall prevention plan of care per policy 2. Provide and maintain a safe environment 3. Proper use of double Identifiers 4. Medication administration using the 5 rights 5. Hand hygiene 6. Specimens are labeled at the bedside 7. Instruct patient/ patient account retention representative about use of safety devices 8. Include patient/ patient account retention representative in decisions related to safety Outcome: Progressing Note: Evaluation of progress towards goal: Pt has not fallen on shift. Monitoring Problem: Infection Goal: Absence of infection during hospitalization Description: Interventions: 1. Assess and monitor for signs and symptoms of infection 2. Monitor lab/diagnostic results 3. Monitor all insertion sites i.e., indwelling lines, tubes and drains 4. Monitor endotracheal (as able) and nasal secretions for changes in amount and color 5. Administer medications as ordered 6. Instruct and encourage patient and family to use good hand hygiene technique 7. Identify and instruct patient/patient account retention representative in use of appropriate isolation precautionsfor identified infection/symptoms 8. Provide and discuss with patient/patient account retention representative on educational MDRO sheet 9. Encourage and monitor nutritional status daily and consult production foreman if indicated 10. Implement neutropenic guidelines as needed 11. Review exposure to history of communicable disease and recent travel history on admission 12. Encourage annual influenza vaccine 13. Encourage pneumonia vaccine Outcome: Progressing Note: Evaluation of progress towards goal: VSS, afebrile, daily labs drawn. No S/S of infection. Monitoring Problem: Knowledge Deficit Goal: Patient/patient account retention representative demonstrates understanding of disease process, treatment plan,medications, and discharge instructions Description: INTERVENTIONS 1. Complete learning assessment and assess knowledge base 2. Provide teaching at level of understanding 3. Provide teaching via preferred learning method(s) Outcome: Progressing Note: Evaluation of progress towards goal: Pt educated on POC by RN Problem: Discharge Planning Goal: Discharge to post-acute care, other facility, or home with appropriate resources Description: Patient's goal is: INTERVENTIONS 1. Conduct assessment to determine patient/family and health care team treatment goals, and need for post-acute services based on payer coverage, community resources, and patient preferences, and barriers to discharge 2. Coordinate with Social work, Care Navigation, and Utilization Review to arrange appropriate level of services according to patient's needs based on patient preference and payer coverage in collaboration with the physician and health care team 3. Address psychosocial, clinical, and financial barriers to discharge as identified in assessment in conjunction with the patient/family and health care team 4. Consult appropriate ancillary services (i.e.. PT/OT/ST, etc) as needed 5. Communicate with and update the patient/family, physician, and health care team regarding progress on the discharge plan 6. Identify discharge learning needs (meds, wound care, etc). 7. Arrange for needed discharge transportation as appropriate Outcome: Progressing Note: Evaluation of progress towards goal: D/C planning to home begun on admission Problem: Glucose Imbalance Goal: Clinical indication of glucose balance is achieved Description: Patient's goal is: INTERVENTIONS 1. Monitor blood glucose levels as ordered 2. Administer medications as ordered 3. Notify physician of ineffective treatment plan Outcome: Progressing Note: Evaluation of progress towards goal: Monitoring blood sugar at regular intervals. Administering appropriate medications as needed. Will continue to monitor. Goal: Patient's discharge needs are met Description: Patient's goal is: INTERVENTIONS 1. Assess patient for self-management skills 2. Encourage participation in diabetes management 3. Identify potential discharge barriers on admission and throughout hospital stay 4. Involve patient/S.O. in discharge planning process 5. Communicate referral to chemical educator as appropriate 6. Communicate referral to production foreman as appropriate 7. Collaborate with case management/forensic social worker for discharge needs Outcome: Progressing Note: Evaluation of progress towards goal: Discharge planning discussed daily with [facility] at [facility] Problem: Cardiovascular - Adult Goal: Absence of cardiac dysrhythmias or at baseline Description: INTERVENTIONS: 1. Continuous cardiac monitoring, monitor vital signs, obtain 12 lead EKG as ordered 2. Monitor for therapeutic effect/ side effects and safely 3. Administer antiarrhythmic and heart rate control medications as ordered 3. Initiate emergency measures for life threatening arrhythmias 4. Monitor labs and administer replacement/adjust therapy as ordered Outcome: Progressing Note: Evaluation of progress towards goal: Pt remains on telemetry to monitor cardiac rhythm. Assessing for signs of decreased cardiac output. Will continue to monitor [facility]10-16-2024 Plan of care note* Plan of Care - Nidia Estrella RN - 11/25/2023 1:12 AM EDT Problem: Pain Goal: Patient goal is pain score less than 4, able to rest, and participant in treatment plan as appropriate Description: INTERVENTIONS: 1. Encourage patient or legal account retention representative to report early pain and ask for pain medicine when needed 2. Assess pain using appropriate pain scale and include the scale used when documenting 3. Administer analgesics based on type and severity of pain and evaluate response within appropriate time frame 4. Implement non-pharmacological measures as appropriate and evaluate response 5. Consider cultural and social influences on pain and pain management 6. Notify LIP if interventions ineffective or patient reports new pain 7. Monitor vital signs including pulse ox, end-tidal CO2 based on pain intervention 8. Reassess pain per policy 9. Teach patient or legal account retention representative interventions for comforting Outcome: Progressing Note: Evaluation of progress towards goal: ongoing Problem: Potential for Compromised Skin Integrity Goal: Skin integrity is maintained or improved Description: Patient's goal is: INTERVENTIONS 1. Perform initial skin assessment on admission and as needed 2. Turn patient every 2 hours and PRN 3. Relieve pressure to bony prominences 4. Avoid shearing 5. Keep skin clean and dry 6. Alternate a full bath with partial baths for elderly 7. Apply lotion/moisturizer on skin 8. Monitor patient's hygiene practices 9. Float heels 10. Collaborate with interdisciplinary team and initiate plans and interventions as needed Outcome: Progressing Note: Evaluation of progress towards goal: ongoing Goal: Patient's nutritional intake is adequate Description: Patient's goal is: INTERVENTIONS 1. Assess and monitor food intake and supplements, patient food preferences, nausea, vomiting, labs, oral cavity (gums, teeth, tongue, mucosa), proper denture fit, and cultural beliefs 2. Monitor for signs of hypoglycemia and hyperglycemia 3. Collaborate with interdisciplinary team and initiate plan and interventions as ordered 4. Monitor patient's weight 5. Assist patient with meals/food selection 6. Assist patient with eating 7. Allow adequate time for meals 8. Provide pleasant environment during mealtime 9. Increase social contact during mealtimes 10. Plan activities to conserve energy 11. Encourage/perform oral hygiene as appropriate 12. Encourage patient to take dietary supplement as ordered 13. Collaborate with clinical production foreman 14. Include patient/ patient's account retention representative in decisions related to nutrition Outcome: Progressing Note: Evaluation of progress towards goal: ongoing [facility]10-16-2024 Miscellaneous Notes* Plan of Care - Nidia Estrella RN - 11/25/2023 1:12 AM EDT Problem: Pain Goal: Patient goal is pain score less than 4, able to rest, and participant in treatment plan as appropriate Description: INTERVENTIONS: 1. Encourage patient or legal account retention representative to report early pain and ask for pain medicine when needed 2. Assess pain using appropriate pain scale and include the scale used when documenting 3. Administer analgesics based on type and severity of pain and evaluate response within appropriate time frame 4. Implement non-pharmacological measures as appropriate and evaluate response 5. Consider cultural and social influences on pain and pain management 6. Notify LIP if interventions ineffective or patient reports new pain 7. Monitor vital signs including pulse ox, end-tidal CO2 based on pain intervention 8. Reassess pain per policy 9. Teach patient or legal account retention representative interventions for comforting Outcome: Progressing Note: Evaluation of progress towards goal: ongoing Problem: Potential for Compromised Skin Integrity Goal: Skin integrity is maintained or improved Description: Patient's goal is: INTERVENTIONS 1. Perform initial skin assessment on admission and as needed 2. Turn patient every 2 hours and PRN 3. Relieve pressure to bony prominences 4. Avoid shearing 5. Keep skin clean and dry 6. Alternate a full bath with partial baths for elderly 7. Apply lotion/moisturizer on skin 8. Monitor patient's hygiene practices 9. Float heels 10. Collaborate with interdisciplinary team and initiate plans and interventions as needed Outcome: Progressing Note: Evaluation of progress towards goal: ongoing Goal: Patient's nutritional intake is adequate Description: Patient's goal is: INTERVENTIONS 1. Assess and monitor food intake and supplements, patient food preferences, nausea, vomiting, labs, oral cavity (gums, teeth, tongue, mucosa), proper denture fit, and cultural beliefs 2. Monitor for signs of hypoglycemia and hyperglycemia 3. Collaborate with interdisciplinary team and initiate plan and interventions as ordered 4. Monitor patient's weight 5. Assist patient with meals/food selection 6. Assist patient with eating 7. Allow adequate time for meals 8. Provide pleasant environment during mealtime 9. Increase social contact during mealtimes 10. Plan activities to conserve energy 11. Encourage/perform oral hygiene as appropriate 12. Encourage patient to take dietary supplement as ordered 13. Collaborate with clinical production foreman 14. Include patient/ patient's account retention representative in decisions related to nutrition Outcome: Progressing Note: Evaluation of progress towards goal: ongoing * Plan of Care - Ignacia Diaz RN - 11/24/2023 4:16 PM EDT Problem: Pain Goal: Patient goal is pain score less than 4, able to rest, and participant in treatment plan as appropriate Description: INTERVENTIONS: 1. Encourage patient or legal account retention representative to report early pain and ask for pain medicine when needed 2. Assess pain using appropriate pain scale and include the scale used when documenting 3. Administer analgesics based on type and severity of pain and evaluate response within appropriate time frame 4. Implement non-pharmacological measures as appropriate and evaluate response 5. Consider cultural and social influences on pain and pain management 6. Notify LIP if interventions ineffective or patient reports new pain 7. Monitor vital signs including pulse ox, end-tidal CO2 based on pain intervention 8. Reassess pain per policy 9. Teach patient or legal account retention representative interventions for comforting Outcome: Progressing Note: Evaluation of progress towards goal: Pt able to report pain according to 0/10 pain scale. Medicating patient for pain per orders. Problem: Safety Goal: Patient will be injury free during hospitalization Description: INTERVENTIONS: 1. Assess patient's risk for falls and implement fall prevention plan of care per policy 2. Provide and maintain a safe environment 3. Proper use of double Identifiers 4. Medication administration using the 5 rights 5. Hand hygiene 6. Specimens are labeled at the bedside 7. Instruct patient/ patient account retention representative about use of safety devices 8. Include patient/ patient account retention representative in decisions related to safety Outcome: Progressing Note: Evaluation of progress towards goal: ALL SAFETY MEASURES SET IN PLACE Additional Comments: * Discharge Planning Note - Blanca Hassan - 11/24/2023 1:04 PM EDT DISCHARGE PLANNING NOTE Referral sent to. [facility], [facility] ([place]: P# ; F# ) * Discharge Planning Note - Amalia Kapoor - 11/24/2023 12:19 PM EDT Images from the original note were not included. DISCHARGE PLANNING NOTE Discharge Planning Assessment Boo Capps Admit Status: Inpatient Meet: Yes Readmission Risk: 13%. Date of Admission: 11/20/2023 GMLOS: 3 days Target Discharge Date: 11/23/2023 Discharge Planning Assessment completed at bedside. Drapery Maker identified self and role to the patient.Patient is agreeable to the assessment and discussion of a safe discharge plan. 11/24/23 1030 Discharge Disposition Discharge Disposition Home with Home Health [facility] Information [facility] Patient Information Primary Caregiver Self Support System Immediate family;Friends;Neighbors;Other (Comment) (Pt states he receives services through [facility].) Income Information Income Information Disability Referral To Community Resources Denies needs Discharge Planning Living Arrangements Spouse/significant other Support Systems Family members;garde manager/social services specialist;Other (Comment) ([facility] services) Assistance Needed Patient is independent with ADL's and mobility. Patient sppech is slow and delayed. Patient states he lives with his . He validates that he receives services through [facility] with the following: Aide in the mornings to help him and his to get up and dressed, transport to groceries and appointments, transport to library, transport to events, assistance with cookign and cleaning. 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 He will continue his [facility] services and he would also like home health care. Does the patient need discharge transport arranged? Yes (Will need trips at discharge.) Services Requested Discharge Disposition: Home with home health services Does the patient need discharge transportation arranged?: Yes Transportation Arranged: Other (Requesting [facility] to take him zora e at discharge.) Patient choice offered: Patient declined List Provided: Patient declined Patient Declined: Other (must state reason) (Used [facility] in the past.) Initial DC Assessment Completed: Yes Pharmacy: [facility] PCP: Davion Pritchard Transportation at Time of Discharge: Patient stated he will need [employer] to transport him home as neither he nor his drive. Patient will make her own follow up appointments: no Patient Goals: Goals Return home with Home Health Care (pt-stated) Evaluation of progress towards goal: Patient plans to return home with support of and home health care. PT Recommends: N/A OT Recommends: N/A Plan to prevent readmission: Follow up with Dr. Cooper. Home Health Care for therapy and a nurse for wound checks. Patient does not endorse any questions at this time. Patient Discharge Plan: Home with continued [facility] services. [facility] pending acceptance for RN/PT/OT. Referral tasked to the transition center. Patient will need [facility] to transport him home at time of discharge. Follow up appointments as below: Dr. Cooper in 2-3 weeks with MAXI Garza. Tasked to the transition center. - Amalia Kapoor 11/24/23 12:22 PM * Plan of Care - Nidia Estrella RN - 11/23/2023 11:37 PM EDT Problem: Pain Goal: Patient goal is pain score less than 4, able to rest, and participant in treatment plan as appropriate Description: INTERVENTIONS: 1. Encourage patient or legal account retention representative to report early pain and ask for pain medicine when needed 2. Assess pain using appropriate pain scale and include the scale used when documenting 3. Administer analgesics based on type and severity of pain and evaluate response within appropriate time frame 4. Implement non-pharmacological measures as appropriate and evaluate response 5. Consider cultural and social influences on pain and pain management 6. Notify LIP if interventions ineffective or patient reports new pain 7. Monitor vital signs including pulse ox, end-tidal CO2 based on pain intervention 8. Reassess pain per policy 9. Teach patient or legal account retention representative interventions for comforting Outcome: Progressing Note: Evaluation of progress towards goal: ongoing Problem: Knowledge Deficit Goal: Patient/patient account retention representative demonstrates understanding of disease process, treatment plan,medications, and discharge instructions Description: INTERVENTIONS 1. Complete learning assessment and assess knowledge base 2. Provide teaching at level of understanding 3. Provide teaching via preferred learning method(s) Outcome: Progressing Note: Evaluation of progress towards goal: ongoing Problem: Moderate - High Risk Fall Score Description: Cha Fall Score of =/> 25 or indicated by [facility] Assessment Goal: Patient should be free from fall Description: Interventions: 1. [place] to environment 2. Hourly rounds addressing the 4 P's (Pain, Positioning, Possessions, Potty) 3. Clear area of hazards (spills, clutter, electrical cords, unnecessary equipment) 4. Place equipment (bed & TV controls, call light, phone, urinal) within reach 5. Encourage patient to wear glasses and hearing aides as appropriate 6. Maintain bed in lowest position 7. Lock wheels on bed/wheelchair 8. Provide adequate lighting, including night light 9. Assess need for additional bedding, food/fluids, pain med's prior to sleep/routinely 10. Provide gripper slippers or personal non-skid footwear 11. Teach patient and patient account retention representative to maintain environment for safety and engage in all aspects of fall prevention program 12. Remind patient to call for help before getting out of bed 13. Initiate bed/chair/exit alarms supportive devices as appropriate, (chair wedge, no-skid floor mat, raised edge mattress, hip protectors) 14. Locate patient bed assignment for optimal visualization 15. Evaluate and identify Safe Patient Handling Equipment needs 16. Provide supervision when out of bed or chair 17. Utilize gait belt as needed to assist with ambulation 18. Place adaptive equipment (cane, walker) within reach 19. Request patient account retention representative bring adaptive equipment/mobility aids from home or obtain and provide as needed 20. Consult pharmacy regarding effects of med's affecting mobility, cognition, and alternatives 21. Obtain physician order for PT if risk factors associated with mobility are present 22. Obtain physician order for OT as appropriate 23. Utilize diversional activities 24. Educate patient and patient account retention representative how to maintain a safe environment during visitationtimes (notify nurse prior to leaving bedside) 25. Consider appropriateness of medical or non-medical geneticist 26. 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 male with abnormal gallbladder on imaging concerns forcholecysto duodenal fistula. The plan for robotic cholecystectomy was discussed with the patient and family. After a thorough explanation of the risks, benefits, and alternatives the patient agreed to proceed with the operative intervention. Procedure in Detail: The patient was taken to the operating room and placed in supine position. Cardiopulmonary monitoring was initiated. EPC's were placed on the lower extremities bilaterally. Prophylactic antibiotics were administered. General endotracheal anesthesia was administered by the anesthesiology team and found to be adequate. The patient was prepped and draped in the usual sterile fashion. A critical surgical time-out was performed. A Veress needle was advanced into the abdominal cavity at white's point. Drop test was negative. The abdomen was insufflated. The patient tolerated insufflation well. A 8 mm robotic trocar was advanced into the right upper quadrant using Optiview technique. Additional robotic trocars were placed in the right upper quadrant. An 12 mm robotic trocar was inserted in the left upper quadrant. The table was placed in reverse Trendelenburg with patient's right- side up. The robot was brought in and docked. Adhesions were seen between the omentum, gallbladder and liver. Using blunt dissection, the omentumwas slowly from the liver and gallbladder. As I was doing this, purulent fluid was encountered indicating abscess formation. This was suctioned. Fluid was sent for culture. Here, the gallbladder was entered. The gallbladder wall was noted to be gangrenous. I continued to bluntly separate the gallbladder and liver from the omentum. I continued to do so until I reached the infundibulum ofthe gallbladder. Here, fibrotic changes were encountered. I did not not attempt to dissect the cystic duct and artery. I proceeded with subtotal cholecystectomy. I started with a top-down approach, ho wever there was no clear plane between the gallbladder wall and the liver. I therefore entered the gallbladder, incising it with hook electrocautery. The anterior portion of the gallbladder was resected. The posterior wall of the gallbladder was left in place and its mucosa fulgurated with hook elec trocautery. I was unable to identify the cystic duct opening. Due to concerns for cholecystoduodenal fistula preoperatively, I proceeded EGD to ensure that no fistula was present and to rule out any injury to the duodenum during the dissection. The endoscope was advanced into the patient's mouth, esophagus, stomach to the 2nd portion of the duodenum. No evidence of injury or fistula was seen. During my endoscopy, fluid was irrigated in the right upper quadrant. No air bubbles we were noted. Theendoscope was subsequently withdrawn. The right upper quadrant was irrigated and hemostasis assured. The gallbladder was placed in a Endo-Catch bag and removed through the left upper quadrant incision. A 15 Bulgarian Roger drain was positioned in the right upper quadrant via the right lateral site. This was secured to the skin using 3-0 nylon suture.The 12 mm trocar site fascia was closed using 0 Vicryl suture using Alexi-Migue needle. The abdomen was allowed to collapse. All trocars were removed. Local anesthesia was infiltrated. All ports sites were closed with interrupted subcuticular 4-0Monocryl sutures. Steri strips were applied. The patient tolerated the procedure well, was extubated in the operating room, and taken to the PACU in excellent condition. Anahy Cooper MD [facility] * Plan of Care - Ailyn Barron RN - 11/23/2023 6:10 AM EDT Problem: Pain Goal: Patient goal is pain score less than 4, able to rest, and participant in treatment plan as appropriate Description: INTERVENTIONS: 1. Encourage patient or legal account retention representative to report early pain and ask for pain medicine when needed 2. Assess pain using appropriate pain scale and include the scale used when documenting 3. Administer analgesics based on type and severity of pain and evaluate response within appropriate time frame 4. Implement non-pharmacological measures as appropriate and evaluate response 5. Consider cultural and social influences on pain and pain management 6. Notify LIP if interventions ineffective or patient reports new pain 7. Monitor vital signs including pulse ox, end-tidal CO2 based on pain intervention 8. Reassess pain per policy 9. Teach patient or legal account retention representative interventions for comforting Outcome: Progressing Note: Evaluation of progress towards goal: ongoing. Problem: Safety Goal: Patient will be injury free during hospitalization Description: INTERVENTIONS: 1. Assess patient's risk for falls and implement fall prevention plan of care per policy 2. Provide and maintain a safe environment 3. Proper use of double Identifiers 4. Medication administration using the 5 rights 5. Hand hygiene 6. Specimens are labeled at the bedside 7. Instruct patient/ patient account retention representative about use of safety devices 8. Include patient/ patient account retention representative in decisions related to safety Outcome: Progressing Note: Evaluation of progress towards goal: ongoing. * Plan of Care - Nico Ellis RN - 11/22/2023 9:23 AM EDT Problem: Pain Goal: Patient goal is pain score less than 4, able to rest, and participant in treatment plan as appropriate Description: INTERVENTIONS: 1. Encourage patient or legal account retention representative to report early pain and ask for pain medicine when needed 2. Assess pain using appropriate pain scale and include the scale used when documenting 3. Administer analgesics based on type and severity of pain and evaluate response within appropriate time frame 4. Implement non-pharmacological measures as appropriate and evaluate response 5. Consider cultural and social influences on pain and pain management 6. Notify LIP if interventions ineffective or patient reports new pain 7. Monitor vital signs including pulse ox, end-tidal CO2 based on pain intervention 8. Reassess pain per policy 9. Teach patient or legal account retention representative interventions for comforting Outcome: Progressing Note: Evaluation of progress towards goal: Pain assessed using appropriate pain scale and include the scale used when documenting. Administered analgesics based on type and severity of pain and evaluate response within appropriate time frame. Implemented non-pharmacological measures as appropriate and evaluate response. Problem: Safety Goal: Patient will be injury free during hospitalization Description: INTERVENTIONS: 1. Assess patient's risk for falls and implement fall prevention plan of care per policy 2. Provide and maintain a safe environment 3. Proper use of double Identifiers 4. Medication administration using the 5 rights 5. Hand hygiene 6. Specimens are labeled at the bedside 7. Instruct patient/ patient account retention representative about use of safety devices 8. Include patient/ patient account retention representative in decisions related to safety Outcome: Progressing Note: Evaluation of progress towards goal: Assessed patient's risk for falls and implemented fall prevention plan of care per protocol. Provided and maintained a safe environment. Used proper use of double Identifiers Problem: Infection Goal: Absence of infection during hospitalization Description: Interventions: 1. Assess and monitor for signs and symptoms of infection 2. Monitor lab/diagnostic results 3. Monitor all insertion sites i.e., indwelling lines, tubes and drains 4. Monitor endotracheal (as able) and nasal secretions for changes in amount and color 5. Administer medications as ordered 6. Instruct and encourage patient and family to use good hand hygiene technique 7. Identify and instruct patient/patient account retention representative in use of appropriate isolation precautionsfor identified infection/symptoms 8. Provide and discuss with patient/patient account retention representative on educational MDRO sheet 9. Encourage and monitor nutritional status daily and consult production foreman if indicated 10. Implement neutropenic guidelines as needed 11. Review exposure to history of communicable disease and recent travel history on admission 12. Encourage annual influenza vaccine 13. Encourage pneumonia vaccine Outcome: Progressing Note: Evaluation of progress towards goal: Isolation precautions followed per protocol. Equipment cleaned between patients. Handwashing protocol followed. Problem: Knowledge Deficit Goal: Patient/patient account retention representative demonstrates understanding of disease process, treatment plan,medications, and discharge instructions Description: INTERVENTIONS 1. Complete learning assessment and assess knowledge base 2. Provide teaching at level of understanding 3. Provide teaching via preferred learning method(s) Outcome: Progressing Note: Evaluation of progress towards goal: Plan of care discussed with pt throughout shift. Updatedon all orders and changes. Verbalizes understanding and all questions/concerns addressed. Problem: Discharge Planning Goal: Discharge to post-acute care, other facility, or home with appropriate resources Description: Patient's goal is: INTERVENTIONS 1. Conduct assessment to determine patient/family and health care team treatment goals, and need for post-acute services based on payer coverage, community resources, and patient preferences, and barriers to discharge 2. Coordinate with Social work, Care Navigation, and Utilization Review to arrange appropriate level of services according to patient's needs based on patient preference and payer coverage in collaboration with the physician and health care team 3. Address psychosocial, clinical, and financial barriers to discharge as identified in assessment in conjunction with the patient/family and health care team 4. Consult appropriate ancillary services (i.e.. PT/OT/ST, etc) as needed 5. Communicate with and update the patient/family, physician, and health care team regarding progress on the discharge plan 6. Identify discharge learning needs (meds, wound care, etc). 7. Arrange for needed discharge transportation as appropriate Outcome: Progressing Note: Evaluation of progress towards goal: Conducted assessment to determine patient/family and health care team treatment goals, and need for post-acute services based on payer coverage, community resources, and patient preferences, and barriers to discharge. Problem: Moderate - High Risk Fall Score Description: Cha Fall Score of =/> 25 or indicated by [facility] Assessment Goal: Patient should be free from fall Description: Interventions: 1. [place] to environment 2. Hourly rounds addressing the 4 P's (Pain, Positioning, Possessions, Potty) 3. Clear area of hazards (spills, clutter, electrical cords, unnecessary equipment) 4. Place equipment (bed & TV controls, call light, phone, urinal) within reach 5. Encourage patient to wear glasses and hearing aides as appropriate 6. Maintain bed in lowest position 7. Lock wheels on bed/wheelchair 8. Provide adequate lighting, including night light 9. Assess need for additional bedding, food/fluids, pain med's prior to sleep/routinely 10. Provide gripper slippers or personal non-skid footwear 11. Teach patient and patient account retention representative to maintain environment for safety and engage in all aspects of fall prevention program 12. Remind patient to call for help before getting out of bed 13. Initiate bed/chair/exit alarms supportive devices as appropriate, (chair wedge, no-skid floor mat, raised edge mattress, hip protectors) 14. Locate patient bed assignment for optimal visualization 15. Evaluate and identify Safe Patient Handling Equipment needs 16. Provide supervision when out of bed or chair 17. Utilize gait belt as needed to assist with ambulation 18. Place adaptive equipment (cane, walker) within reach 19. Request patient account retention representative bring adaptive equipment/mobility aids from home or obtain and provide as needed 20. Consult pharmacy regarding effects of med's affecting mobility, cognition, and alternatives 21. Obtain physician order for PT if risk factors associated with mobility are present 22. Obtain physician order for OT as appropriate 23. Utilize diversional activities 24. Educate patient and patient account retention representative how to maintain a safe environment during visitationtimes (notify nurse prior to leaving bedside) 25. Consider appropriateness of medical or non-medical geneticist 26. Set up voiding schedule as appropriate (every 2 hours) Outcome: Progressing Note: Evaluation of progress towards goal: Preformed hourly rounds addressing the 4 P's (Pain, Positioning, Possessions, Potty). Cleared area of hazards (spills, clutter, electrical cords, unnecessary equipment). * Plan of Care - Ailyn Barron RN - 11/22/2023 4:18 AM EDT Problem: Pain Goal: Patient goal is pain score less than 4, able to rest, and participant in treatment plan as appropriate Description: INTERVENTIONS: 1. Encourage patient or legal account retention representative to report early pain and ask for pain medicine when needed 2. Assess pain using appropriate pain scale and include the scale used when documenting 3. Administer analgesics based on type and severity of pain and evaluate response within appropriate time frame 4. Implement non-pharmacological measures as appropriate and evaluate response 5. Consider cultural and social influences on pain and pain management 6. Notify LIP if interventions ineffective or patient reports new pain 7. Monitor vital signs including pulse ox, end-tidal CO2 based on pain intervention 8. Reassess pain per policy 9. Teach patient or legal account retention representative interventions for comforting Outcome: Progressing Note: Evaluation of progress towards goal: ongoing. Problem: Safety Goal: Patient will be injury free during hospitalization Description: INTERVENTIONS: 1. Assess patient's risk for falls and implement fall prevention plan of care per policy 2. Provide and maintain a safe environment 3. Proper use of double Identifiers 4. Medication administration using the 5 rights 5. Hand hygiene 6. Specimens are labeled at the bedside 7. Instruct patient/ patient account retention representative about use of safety devices 8. Include patient/ patient account retention representative in decisions related to safety Outcome: Progressing Note: Evaluation of progress towards goal: ongoing. Problem: Infection Goal: Absence of infection during hospitalization Description: Interventions: 1. Assess and monitor for signs and symptoms of infection 2. Monitor lab/diagnostic results 3. Monitor all insertion sites i.e., indwelling lines, tubes and drains 4. Monitor endotracheal (as able) and nasal secretions for changes in amount and color 5. Administer medications as ordered 6. Instruct and encourage patient and family to use good hand hygiene technique 7. Identify and instruct patient/patient account retention representative in use of appropriate isolation precautionsfor identified infection/symptoms 8. Provide and discuss with patient/patient account retention representative on educational MDRO sheet 9. Encourage and monitor nutritional status daily and consult production foreman if indicated 10. Implement neutropenic guidelines as needed 11. Review exposure to history of communicable disease and recent travel history on admission 12. Encourage annual influenza vaccine 13. Encourage pneumonia vaccine Outcome: Progressing Note: Evaluation of progress towards goal: ongoing. * Plan of Care - Nico Ellis RN - 11/21/2023 9:05 AM EDT Problem: Pain Goal: Patient goal is pain score less than 4, able to rest, and participant in treatment plan as appropriate Description: INTERVENTIONS: 1. Encourage patient or legal account retention representative to report early pain and ask for pain medicine when needed 2. Assess pain using appropriate pain scale and include the scale used when documenting 3. Administer analgesics based on type and severity of pain and evaluate response within appropriate time frame 4. Implement non-pharmacological measures as appropriate and evaluate response 5. Consider cultural and social influences on pain and pain management 6. Notify LIP if interventions ineffective or patient reports new pain 7. Monitor vital signs including pulse ox, end-tidal CO2 based on pain intervention 8. Reassess pain per policy 9. Teach patient or legal account retention representative interventions for comforting Outcome: Progressing Note: Evaluation of progress towards goal: Pain assessed using appropriate pain scale and include the scale used when documenting. Administered analgesics based on type and severity of pain and evaluate response within appropriate time frame. Implemented non-pharmacological measures as appropriate and evaluate response. Problem: Safety Goal: Patient will be injury free during hospitalization Description: INTERVENTIONS: 1. Assess patient's risk for falls and implement fall prevention plan of care per policy 2. Provide and maintain a safe environment 3. Proper use of double Identifiers 4. Medication administration using the 5 rights 5. Hand hygiene 6. Specimens are labeled at the bedside 7. Instruct patient/ patient account retention representative about use of safety devices 8. Include patient/ patient account retention representative in decisions related to safety Outcome: Progressing Note: Evaluation of progress towards goal: Assessed patient's risk for falls and implemented fall prevention plan of care per protocol. Provided and maintained a safe environment. Used proper use of double Identifiers Problem: Infection Goal: Absence of infection during hospitalization Description: Interventions: 1. Assess and monitor for signs and symptoms of infection 2. Monitor lab/diagnostic results 3. Monitor all insertion sites i.e., indwelling lines, tubes and drains 4. Monitor endotracheal (as able) and nasal secretions for changes in amount and color 5. Administer medications as ordered 6. Instruct and encourage patient and family to use good hand hygiene technique 7. Identify and instruct patient/patient account retention representative in use of appropriate isolation precautionsfor identified infection/symptoms 8. Provide and discuss with patient/patient account retention representative on educational MDRO sheet 9. Encourage and monitor nutritional status daily and consult production foreman if indicated 10. Implement neutropenic guidelines as needed 11. Review exposure to history of communicable disease and recent travel history on admission 12. Encourage annual influenza vaccine 13. Encourage pneumonia vaccine Outcome: Progressing Note: Evaluation of progress towards goal: Isolation precautions followed per protocol. Equipment cleaned between patients. Handwashing protocol followed. Problem: Knowledge Deficit Goal: Patient/patient account retention representative demonstrates understanding of disease process, treatment plan,medications, and discharge instructions Description: INTERVENTIONS 1. Complete learning assessment and assess knowledge base 2. Provide teaching at level of understanding 3. Provide teaching via preferred learning method(s) Outcome: Progressing Note: Evaluation of progress towards goal: Plan of care discussed with pt throughout shift. Updatedon all orders and changes. Verbalizes understanding and all questions/concerns addressed. Problem: Discharge Planning Goal: Discharge to post-acute care, other facility, or home with appropriate resources Description: Patient's goal is: INTERVENTIONS 1. Conduct assessment to determine patient/family and health care team treatment goals, and need for post-acute services based on payer coverage, community resources, and patient preferences, and barriers to discharge 2. Coordinate with Social work, Care Navigation, and Utilization Review to arrange appropriate level of services according to patient's needs based on patient preference and payer coverage in collaboration with the physician and health care team 3. Address psychosocial, clinical, and financial barriers to discharge as identified in assessment in conjunction with the patient/family and health care team 4. Consult appropriate ancillary services (i.e.. PT/OT/ST, etc) as needed 5. Communicate with and update the patient/family, physician, and health care team regarding progress on the discharge plan 6. Identify discharge learning needs (meds, wound care, etc). 7. Arrange for needed discharge transportation as appropriate Outcome: Progressing Note: Evaluation of progress towards goal: Conducted assessment to determine patient/family and health care team treatment goals, and need for post-acute services based on payer coverage, community resources, and patient preferences, and barriers to discharge. Problem: Moderate - High Risk Fall Score Description: Cha Fall Score of =/> 25 or indicated by [facility] Assessment Goal: Patient should be free from fall Description: Interventions: 1. [place] to environment 2. Hourly rounds addressing the 4 P's (Pain, Positioning, Possessions, Potty) 3. Clear area of hazards (spills, clutter, electrical cords, unnecessary equipment) 4. Place equipment (bed & TV controls, call light, phone, urinal) within reach 5. Encourage patient to wear glasses and hearing aides as appropriate 6. Maintain bed in lowest position 7. Lock wheels on bed/wheelchair 8. Provide adequate lighting, including night light 9. Assess need for additional bedding, food/fluids, pain med's prior to sleep/routinely 10. Provide gripper slippers or personal non-skid footwear 11. Teach patient and patient account retention representative to maintain environment for safety and engage in all aspects of fall prevention program 12. Remind patient to call for help before getting out of bed 13. Initiate bed/chair/exit alarms supportive devices as appropriate, (chair wedge, no-skid floor mat, raised edge mattress, hip protectors) 14. Locate patient bed assignment for optimal visualization 15. Evaluate and identify Safe Patient Handling Equipment needs 16. Provide supervision when out of bed or chair 17. Utilize gait belt as needed to assist with ambulation 18. Place adaptive equipment (cane, walker) within reach 19. Request patient account retention representative bring adaptive equipment/mobility aids from home or obtain and provide as needed 20. Consult pharmacy regarding effects of med's affecting mobility, cognition, and alternatives 21. Obtain physician order for PT if risk factors associated with mobility are present 22. Obtain physician order for OT as appropriate 23. Utilize diversional activities 24. Educate patient and patient account retention representative how to maintain a safe environment during visitationtimes (notify nurse prior to leaving bedside) 25. Consider appropriateness of medical or non-medical geneticist 26. Set up voiding schedule as appropriate (every 2 hours) Outcome: Progressing Note: Evaluation of progress towards goal: Preformed hourly rounds addressing the 4 P's (Pain, Positioning, Possessions, Potty). Cleared area of hazards (spills, clutter, electrical cords, unnecessary equipment). * Plan of Care - Ailyn Barron RN - 11/21/2023 1:08 AM EDT Problem: Pain Goal: Patient goal is pain score less than 4, able to rest, and participant in treatment plan as appropriate Description: INTERVENTIONS: 1. Encourage patient or legal account retention representative to report early pain and ask for pain medicine when needed 2. Assess pain using appropriate pain scale and include the scale used when documenting 3. Administer analgesics based on type and severity of pain and evaluate response within appropriate time frame 4. Implement non-pharmacological measures as appropriate and evaluate response 5. Consider cultural and social influences on pain and pain management 6. Notify LIP if interventions ineffective or patient reports new pain 7. Monitor vital signs including pulse ox, end-tidal CO2 based on pain intervention 8. Reassess pain per policy 9. Teach patient or legal account retention representative interventions for comforting Outcome: Progressing Note: Evaluation of progress towards goal: ongoing. Problem: Safety Goal: Patient will be injury free during hospitalization Description: INTERVENTIONS: 1. Assess patient's risk for falls and implement fall prevention plan of care per policy 2. Provide and maintain a safe environment 3. Proper use of double Identifiers 4. Medication administration using the 5 rights 5. Hand hygiene 6. Specimens are labeled at the bedside 7. Instruct patient/ patient account retention representative about use of safety devices 8. Include patient/ patient account retention representative in decisions related to safety Outcome: Progressing Note: Evaluation of progress towards goal: ongoing. * Plan of Care - Miranda Rosa RN - 11/20/2023 6:36 PM EDT Problem: Pain Goal: Patient goal is pain score less than 4, able to rest, and participant in treatment plan as appropriate Description: INTERVENTIONS: 1. Encourage patient or legal account retention representative to report early pain and ask for pain medicine when needed 2. Assess pain using appropriate pain scale and include the scale used when documenting 3. Administer analgesics based on type and severity of pain and evaluate response within appropriate time frame 4. Implement non-pharmacological measures as appropriate and evaluate response 5. Consider cultural and social influences on pain and pain management 6. Notify LIP if interventions ineffective or patient reports new pain 7. Monitor vital signs including pulse ox, end-tidal CO2 based on pain intervention 8. Reassess pain per policy 9. Teach patient or legal account retention representative interventions for comforting Outcome: Progressing Note: Evaluation of progress towards goal: Pt able to report pain according to 0/10 pain scale. Medicating patient for pain per orders. Problem: Safety Goal: Patient will be injury free during hospitalization Description: INTERVENTIONS: 1. Assess patient's risk for falls and implement fall prevention plan of care per policy 2. Provide and maintain a safe environment 3. Proper use of double Identifiers 4. Medication administration using the 5 rights 5. Hand hygiene 6. Specimens are labeled at the bedside 7. Instruct patient/ patient account retention representative about use of safety devices 8. Include patient/ patient account retention representative in decisions related to safety Outcome: Progressing Note: Evaluation of progress towards goal: Pt's risk for falls assessed and fall prevention implemented as needed, safe environment provided and maintained, hand hygiene completed. Pt's risk for falls assessed and fall prevention implemented as needed, safe environment provided and maintained, handhygiene completed. Problem: Knowledge Deficit Goal: Patient/patient account retention representative demonstrates understanding of disease process, treatment plan,medications, and discharge instructions Description: INTERVENTIONS 1. Complete learning assessment and assess knowledge base 2. Provide teaching at level of understanding 3. Provide teaching via preferred learning method(s) Outcome: Progressing Note: Evaluation of progress towards goal: POC discussed with patient. Questions answered PRN. * ED Procedure Note - Dileep Mtz DO - 11/20/2023 3:42 PM EDTAssociated Order(s): Critical Care Procedure Critical Care Performed by: Dileep Mtz DO Authorized by: Dileep Mtz DO Critical care provider statement: Critical care time (minutes): 35 Critical care start time: arrival to the ED. Critical care end time: 11/20/2023 3:42 PM Critical care time was exclusive of: Separately billable procedures and treating other patients Critical care was necessary to treat or prevent imminent or life-threatening deterioration of the following conditions: Endocrine crisis (and GI complications) Critical care was time spent personally by me on the following activities: Blood draw for specimens, development of treatment plan with patient or surrogate, discussions with consultants, discussionswith primary provider, evaluation of patient's response to treatment, examination of patient, interpretation of cardiac output measurements, obtaining history from patient or surrogate, ordering and performing treatments and interventions, ordering and review of laboratory studies, ordering and review of radiographic studies, pulse oximetry, re-evaluation of patient's condition and review of old charts Care discussed with: admitting provider Comments: And general surgeon as consultation. Dileep Mtz DO 11/20/23 1542 [facility] Plan of care note * Plan of Care - Ignacia Diaz RN - 11/24/2023 4:16 PM EDT Problem: Pain Goal: Patient goal is pain score less than 4, able to rest, and participant in treatment plan as appropriate Description: INTERVENTIONS: 1. Encourage patient or legal account retention representative to report early pain and ask for pain medicine when needed 2. Assess pain using appropriate pain scale and include the scale used when documenting 3. Administer analgesics based on type and severity of pain and evaluate response within appropriate time frame 4. Implement non-pharmacological measures as appropriate and evaluate response 5. Consider cultural and social influences on pain and pain management 6. Notify LIP if interventions ineffective or patient reports new pain 7. Monitor vital signs including pulse ox, end-tidal CO2 based on pain intervention 8. Reassess pain per policy 9. Teach patient or legal account retention representative interventions for comforting Outcome: Progressing Note: Evaluation of progress towards goal: Pt able to report pain according to 0/10 pain scale. Medicating patient for pain per orders. Problem: Safety Goal: Patient will be injury free during hospitalization Description: INTERVENTIONS: 1. Assess patient's risk for falls and implement fall prevention plan of care per policy 2. Provide and maintain a safe environment 3. Proper use of double Identifiers 4. Medication administration using the 5 rights 5. Hand hygiene 6. Specimens are labeled at the bedside 7. Instruct patient/ patient account retention representative about use of safety devices 8. Include patient/ patient account retention representative in decisions related to safety Outcome: Progressing Note: Evaluation of progress towards goal: ALL SAFETY MEASURES SET IN PLACE Additional Comments: [employer]10-15-2024 History of Present illness Narrative* Anahy Cooper MD - 11/24/2023 2:50 PM EDT Images from the original note were not included. Subjective: Boo Capps is a 63 y.o. male status post robotic subtotal cholecystectomy. No acute events overnight. The developed some abdominal pain with clear liquid diet this morning. Denies any nausea or vomiting. He would like to go home. Objective: Vitals: 11/24/23 1303 BP: 122/66 Pulse: 66 Resp: 16 Temp: 36.3 C (97.4 F) SpO2: 96% Temp: [36.2 C (97.1 F)-36.7 C (98 F)] 36.3 C (97.4 F) Pulse: [66-82] 66 Resp: [16-21] 16 BP: (104-128)/(52-71) 122/66 FiO2 (%): [21 %] 21 % SpO2: [93 %-100 %] 96 % O2 Device: None (Room air) O2 Flow Rate (L/min): [0 L/min] 0 L/min No Known Allergies Intake/Output last 3 shifts: I/O last 3 completed shifts: In: 1400 [I.V.:1300; IV Piggyback:100] Out: 55 [Drains:30; Blood:25] Intake/Output this shift: I/O this shift: In: - Out: 155 [Drains:155] Dietary Orders (From admission, onward) Start Ordered 11/24/23 1211 Adult diet NPO; Except medications, Ice chips only Diet effective now Question Answer Comment Diet Type: NPO NPO Except: Except medications NPO Except: Ice chips only 11/24/23 1210 Physical Exam General Appearance: Awake, Alert & Oriented x3, No Acute Distress. Neck: Trachea Midline. Pulmonary: Unlabored breathing. Cardiac: Regular rhythm and rate. Abdomen: Soft, appropriate tenderness to palpation. Nondistended. Incisions are clean, dry and intact with Steri-Strips Band-Aids in place.Right lower quadrant drain with bilious output Extremity: No edema Skin: Dry. Non-icteric. No Rash. Eyes: Pupils Equal and Round, Non-icteric Laboratory Data: Lab Results Component Value Date WBC 10.5 11/24/2023 HGB 13.2 11/24/2023 HCT 39.4 11/24/2023 MCV 97 11/24/2023 PLT 246 11/24/2023 Lab Results Component Value Date GLU 209 (H) 11/24/2023 CALCIUM 8.6 11/24/2023 K 4.2 11/24/2023 CO2 17 (L) 11/24/2023 CL 106 11/24/2023 BUN 13 11/24/2023 CREATININE 1.29 (H) 11/24/2023 No results found for: AMYLASE Lab Results Component Value Date LIPASE 47 (H) 11/20/2023 Lab Results Component Value Date ALT 27 11/24/2023 AST 32 11/24/2023 ALKPHOS 100 11/24/2023 No results found for: INR , PROTIME acetaminophen, 1,000 mg, oral, Q6H BASILIA cefTRIAXone (ROCEPHIN) IV, 2,000 mg, intravenous, Q24H FLUoxetine, 20 mg, oral, Daily insulin glargine, 10 Units, subcutaneous, Daily insulin lispro, 3-18 Units, subcutaneous, With meals and nightly metoprolol tartrate, 25 mg, oral, BID metroNIDAZOLE, 500 mg, intravenous, Q12H pantoprazole, 40 mg, intravenous, Q24H BASILIA topiramate, 25 mg, oral, BID calcium gluconate calcium gluconate calcium gluconate dextrose dextrose 5 % in water dextrose 50 % in water (D50W) glucagon (human recombinant) magnesium sulfate magnesium sulfate morphine injection ondansetron potassium chloride OR potassium chloride sodium phosphate IV OR sodium phosphate IV - central line OR sod phos di, mono-K phos mono sodium chloride sodium chloride 0.9 % Assessment: Boo Capps is a 63 y.o. male status post robotic subtotal cholecystectomy and drainage of gallbladder abscess. Postoperative day 1. Bile leak present Plan: NPO Hydration IV antibiotics Pain/nausea control Transfer to [facility] for GI/ERCP * Sara Pardo Gayatri, [employer] - 11/24/2023 11:11 AM EDT Images from the original note were not included. This [facility] INTERNAL MEDIC[facility] [address] [facility] [id number] Hospital Medicine Progress Note Patient: Boo Capps Date of : 1960 Room: PCP: DAVION PRITCHARD MD Admission date: 11/20/2023 10:25 AM Encounter date: 11/24/23 SUBJECTIVE Chief complaints: Chief Complaint Patient presents with Abdominal Pain Interval History: Status: stable No overnight events or new complaints. Patient seen and evaluated this morning. Reports he is currently feeling well despite some abdominal pain which is worse when he moves. He has been able to eat some of his liquid diet however he was requesting actual food. Discussed with him that this would need to wait for now due to his findings during surgery and plans from general surgery any verbalizes understanding. He was agreeable to transfer to [facility] and transfer has been initiated under general surgery. Review of Systems Constitutional: Positive for appetite change. Negative for activity change, chills, diaphoresis, fatigue and fever. HENT: Negative for tinnitus and trouble swallowing. Eyes: Negative for visual disturbance. Respiratory: Negative for cough, chest tightness, shortness of breath and wheezing. Cardiovascular: Negative for chest pain, palpitations and leg swelling. Gastrointestinal: Positive for abdominal pain. Negative for constipation, diarrhea, nausea and vomiting. +flatus Genitourinary: Negative for difficulty urinating. Skin: Negative for rash. Neurological: Negative for dizziness, syncope, speech difficulty, weakness, light-headedness, numbness and headaches. Psychiatric/Behavioral: Negative for sleep disturbance. OBJECTIVE BP 107/52 Pulse 80 Temp 36.3 C (97.4 F) (Oral) Resp 19 Ht 177.8 cm (5' 10 ) Wt (!) 137.4 kg (303 lb) SpO2 93% BMI 43.48 kg/m Intake/Output Summary (Last 24 hours) at 11/24/2023 1111 Last data filed at 11/24/2023 1000 Gross per 24 hour Intake 1400 ml Output 130 ml Net 1270 ml Physical Exam Vitals and nursing note reviewed. Constitutional: General: He is not in acute distress. HENT: Head: Normocephalic and atraumatic. Right Ear: External ear normal. Left Ear: External ear normal. Nose: Nose normal. Mouth/Throat: Mouth: Mucous membranes are moist. Pharynx: Oropharynx is clear. Eyes: Extraocular Movements: Extraocular movements intact. Pupils: Pupils are equal, round, and reactive to light. Neck: Vascular: No carotid bruit or JVD. Cardiovascular: Rate and Rhythm: Normal rate and regular rhythm. Pulses: Normal pulses. Pulmonary: Effort: Pulmonary effort is normal. Breath sounds: Normal breath sounds. Abdominal: General: Bowel sounds are normal. Palpations: Abdomen is soft. Tenderness: There is abdominal tenderness in the right upper quadrant and epigastric area. There isno right CVA tenderness or left CVA tenderness. Musculoskeletal: Right lower leg: No edema. Left lower leg: No edema. Lymphadenopathy: Cervical: No cervical adenopathy. Skin: General: Skin is warm and dry. Capillary Refill: Capillary refill takes less than 2 seconds. Neurological: General: No focal deficit present. Mental Status: He is alert and oriented to person, place, and time. Psychiatric: Mood and Affect: Mood normal. Behavior: Behavior normal. Thought Content: Thought content normal. Judgment: Judgment normal. Medications Scheduled: acetaminophen, 1,000 mg, oral, Q6H BASILIA cefTRIAXone (ROCEPHIN) IV, 2,000 mg, intravenous, Q24H FLUoxetine, 20 mg, oral, Daily insulin glargine, 10 Units, subcutaneous, Daily insulin lispro, 3-18 Units, subcutaneous, With meals and nightly metoprolol tartrate, 25 mg, oral, BID metroNIDAZOLE, 500 mg, intravenous, Q12H pantoprazole, 40 mg, intravenous, Q24H BASILIA topiramate, 25 mg, oral, BID Infusions: dextrose 5 % in water, 100 mL/hr sodium chloride 0.9 %, 20 mL/hr sodium chloride 0.9 %, 75 mL/hr, Last Rate: 75 mL/hr (11/24/23 0915) sodium chloride 0.9 %, 75 mL/hr, Last Rate: 75 mL/hr (11/24/23 1000) As Needed: calcium gluconate calcium gluconate calcium gluconate dextrose dextrose 5 % in water dextrose 50 % in water (D50W) glucagon (human recombinant) magnesium sulfate magnesium sulfate morphine injection ondansetron potassium chloride OR potassium chloride sodium phosphate IV OR sodium phosphate IV - central line OR sod phos di, mono-K phos mono sodium chloride sodium chloride 0.9 % Allergies: Patient has no known allergies. Labs Recent Results (from the past 24 hour(s)) Bedside Glucose *Place/Obtain serum glucose if >500(>600 MRH) per glucometer. Collection Time: 11/23/23 11:15 AM Result Value Ref Range Bedside glucose 175 (H) 65 - 99 mg/dL Aspirate culture includes gram stain Collection Time: 11/23/23 3:45 PM Specimen: Aspirate Atr ABSCESS~GALL BLADDER Result Value Ref Range Specimen Notes REFRIDGERATED FOR HOURS DUE TO BEING MISPLACED IN PATHOLOGY OVERNIGHT FRIDGE INSTEAD OF GIVEN TO MICRO. THERE IS A SECOND CUP FOR PATHOLOGY. Gram Stain Result 0 to 1 WHITE BLOOD CELLS/LPF Gram Stain Result 0 SQUAMOUS EPITHELIAL CELLS/LPF Gram Stain Result FEW GRAM POSITIVE COCCI IN PAIRS AND CHAINS Gram Stain Result FEW GRAM POSITIVE RODS Gram Stain Result RARE YEAST Culture PENDING Bedside Glucose *Place/Obtain serum glucose if >500(>600 MRH) per glucometer. Collection Time: 11/23/23 6:31 PM Result Value Ref Range Bedside glucose 198 (H) 65 - 99 mg/dL Bedside Glucose *Place/Obtain serum glucose if >500(>600 MRH) per glucometer. Collection Time: 11/23/23 9:08 PM Result Value Ref Range Bedside glucose 194 (H) 65 - 99 mg/dL CBC auto differential Collection Time: 11/24/23 6:23 AM Result Value Ref Range White Blood Cells 10.5 4.0 - 11.0 X10E9/L RBC count 4.04 (L) 4.10 - 5.70 X10E12/L Hemoglobin 13.2 13.0 - 17.0 g/dL Hematocrit 39.4 39 - 49 % MCV 97 80 - 100 fL MCH 32.7 27 - 34 pg MCHC 33.6 32 - 36 g/dL RDW 15.2 (H) 11.5 - 15.0 % Platelets 246 150 - 450 X10E9/L MPV 7.6 7 - 12 fL % neutrophils 75.0 % % lymphocytes 15.8 % % monocytes 8.6 % % eosinophils 0.0 % % Basophils 0.6 % Neutrophils Absolute (A) 7.9 (H) 1.5 - 6.6 X10E9/L Lymphocytes Absolute 1.7 1.0 - 3.5 X10E9/L Monocytes Absolute 0.9 0 - 0.9 X10E9/L Eosinophils Absolute 0.0 0.0 - 0.4 X10E9/L Basophils Absolute 0.1 0.0 - 0.2 X10E9/L Comprehensive metabolic panel Collection Time: 11/24/23 6:23 AM Result Value Ref Range Sodium 137 134 - 146 mmol/L Potassium, Bld 4.2 3.5 - 5.0 mmol/L Chloride 106 98 - 109 mmol/L CO2 17 (L) 22 - 32 mmol/L Anion gap 14 5 - 15 mmol/L BUN 13 5 - 27 mg/dL Creatinine 1.29 (H) 0.70 - 1.20 mg/dL Glucose 207 (H) 65 - 99 mg/dL Calcium 8.6 8.5 - 10.5 mg/dL Total Protein 6.7 6.0 - 8.0 g/dL Albumin 2.9 (L) 3.2 - 5.3 g/dL Alkaline Phosphatase 100 39 - 130 U/L AST 32 0 - 41 U/L ALT 27 0 - 40 U/L Total bilirubin 2.2 (H) 0.3 - 1.2 mg/dL eGFR (CKD-EPI)non-race dependent 63 >59 ml/min/1.73sq.m Bedside Glucose *Place/Obtain serum glucose if >500(>600 MRH) per glucometer. Collection Time: 11/24/23 8:54 AM Result Value Ref Range Bedside glucose 213 (H) 65 - 99 mg/dL Radiology X-ray chest 1 view Result Date: 11/21/2023 Narrative: Chest radiograph dated: 11/21/2023. Reason for study: surgical clearance. Comparison studies: Chest x-ray from 12/05/2021. Technique: Portable upright chest 1 view AP. Findings: Mild cardiomegaly. No willian pulmonary edema. No pneumothorax, significant pleural effusions or focal consolidation. No acute osseous abnormality. IMPRESSION: No acute cardiopulmonary process identified Finalized by German Cardenas MD on 11/21/2023 4:10 PM X-ray abdomen ap 1 view Result Date: 11/20/2023 Narrative: HISTORY: Abdominal pain COMPARISON: CT abdomen and pelvis 11/18/2023 FINDINGS: Multiple supine views of the abdomen were obtained. Nonobstructive bowel gas pattern. Moderate stool burden inthe colon. Vascular calcifications in the pelvis. No acute osseous abnormality. IMPRESSION: * Nonobstructive bowel gas pattern with moderate stool burden. Finalized by hPilip Adams MD on 11/20/2023 2:[address] abdomen and pelvis with and without contrast Result Date: 11/19/2023 Narrative: CT ABDOMEN AND PELVIS W WO CONT HISTORY: Generalized abdominal pain COMPARISON: CT abdomen pelvis 06/06/2012 TECHNIQUE: CT images of abdomen and pelvis obtained with and without intravenouscontrast. Automated exposure control was utilized. All CT scans at this facility use dose modulation, iterative reconstruction, and/or weight based dosing when appropriate to reduce radiation dose toas low as reasonably achievable. CONTRAST: Oral: None IV: 100 mL Omnipaque 300 FINDINGS: LOWER CHEST: Bilateral gynecomastia. Evaluation of the lung bases is suboptimal secondary to respiratory motion artifact. LIVER AND BILIARY: Noncirrhotic liver morphology. No suspicious hepatic mass or lesion. T he portal venous system appears patent. There is gallbladder wall thickening and pericholecystic fat stranding. Large volume of gas seen within the gallbladder which appears to be extending to a defect in the wall which closely abuts and likely communicates with the adjacent duodenum. The adjacent D2 segment of duodenum has evidence of wall thickening and surrounding fat stranding. Equivocal fistulous communication (series 4, image 24). PANCREAS: Unremarkable SPLEEN: Unremarkable. ADRENALS: No adrenal mass or lesion. KIDNEYS, URETERS, AND BLADDER: No suspicious renal mass or lesion.. No collecting system dilatation. No renal calculi.. Ureters and bladder are unremarkable. GI TRACT AND PERITO NEUM: The appendix is not well-visualized. Terminal ileum is unremarkable appearing. There is no evidence of bowel obstruction. Large burden of stool in the colon. Inflammatory changes with apparent defect within the wall of the D2 segment of duodenum and adjacent gallbladder. VASCULATURE: Unremarkable LYMPH NODES: No enlarged lymph nodes by size criteria. REPRODUCTIVE ORGANS: Unremarkable MUSCULOSKELETAL: No acute abnormalities. IMPRESSION: * Findings most compatible with choleduodenal fistulawith inflammatory changes about both the D2 segment of the duodenum and adjacent gallbladder. Giventhe degree of inflammatory change, correlate for underlying duodenal ulceration. No evidence of bowel obstruction/gallstone ileus. THIS REPORT CONTAINS A SIGNIFICANT RESULT AND/OR RECOMMENDATION, WHICH REQUIRES THE ATTENTION OF THE LICENSED CAREGIVER RESPONSIBLE FOR THIS PATIENT. THEREFORE, I SPECIFICALLY DESIGNATED THIS REPORT TO BE TELEPHONED BY THE RADIOLOGY DEPARTMENT. FINDINGS WERE INSTRUCTED TO BE CALLED TO THE CLINICAL SERVICE ON 11/19/2023 AT 1620 hours. Approved by Resident Juan Mcmillan DO on 11/19/2023 2:04 PM IMichelet MD have personally reviewed the image(s) and agree with and/or edited the report Finalized by Michelet Alejandro MD on 11/19/2023 4:[address] abdomen and pelvis with and without contrast Result Date: 11/19/2023 Narrative: THIS EXAM WAS PERFORMED AT [facility] CT ABDOMEN AND PELVIS W WO CONT HISTORY: Generalized abdominal pain COMPARISON: CT abdomen pelvis 06/06/2012 TECHNIQUE: CT images of abdomen and pelvis obtained with and without intravenous contrast. Automated exposure control was utilized. All CT scans at this facility use dose modulation, iterative reconstruction, and/or weight based dosing when appropriate to reduce radiation dose to as low as reasonably achievable. CONTRAST: Oral: None IV: 100 mL Omnipaque 300 FINDINGS: LOWER CHEST: Bilateral gynecomastia. Evaluation of the lung bases is suboptimal secondary to respiratory motion artifact. LIVER AND BILIARY: Noncirrhotic liver morphology. No suspicious hepatic mass or lesion. The portal venous system appears patent. There is gallbladder wall thickening and pericholecystic fat stranding. Large volume of gas seen within the gallbladder which appears to be extending to a defect in the wall which closely abuts and likely communicates withthe adjacent duodenum. The adjacent D2 segment of duodenum has evidence of wall thickening and surrounding fat stranding. Equivocal fistulous communication (series 4, image 24). PANCREAS: Unremarkable SPLEEN: Unremarkable. ADRENALS: No adrenal mass or lesion. KIDNEYS, URETERS, AND BLADDER: No suspicious renal mass or lesion.. No collecting system dilatation. No renal calculi.. Ureters and bladder are unremarkable. GI TRACT AND PERITONEUM: The appendix is not well-visualized. Terminal ileum is unremarkable appearing. There is no evidence of bowel obstruction. Large burden of stool in the colon. Inflammatory changes with apparent defect within the wall of the D2 segment of duodenum and adjacent gallbladder. VASCULATURE: Unremarkable LYMPH NODES: No enlarged lymph nodes by size criteria. REPRODUCTIVE ORGANS: Unremarkable MUSCULOSKELETAL: No acute abnormalities. 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 Given the degree of inflammatory change, correlate for underlying duodenal ulceration. No evidence of bowel obstruction/gallstone ileus. THIS REPORT CONTAINS A SIGNIFICANT RESULT AND/OR RECOMMENDATION, WHICH REQUIRES THE ATTENTION OF THE LICENSED CAREGIVER RESPONSIBLEFOR THIS PATIENT. THEREFORE, I SPECIFICALLY DESIGNATED THIS REPORT TO BE TELEPHONED BY THE RADIOLOGY DEPARTMENT. FINDINGS WERE INSTRUCTED TO BE CALLED TO THE CLINICAL SERVICE ON 11/19/2023 AT 1620 hours. Approved by Resident Juan Mcmillan DO on 11/19/2023 2:04 PM IMichelet MD have personally reviewed the image(s) and agree with and/or edited the report Finalized by Annetta Alejandro MD on 11/19/2023 4:20 PM HOSPITAL PROBLEM LIST Principal Problem: Fistula of gallbladder Active Problems: Gastroesophageal reflux disease without esophagitis Generalized anxiety disorder Obstructive sleep apnea syndrome Stage 3a chronic kidney disease (CKD) ([facility] Type 2 diabetes mellitus with hyperglycemia, without long-term current use of insulin ([facility]) Duodenal fistula Hyperglycemia ASSESSMENT & PLAN Fistula gallbladder/duodenal fistula Acute gangrenous cholecystitis with abscess General surgery following S/p Robotic assisted laparoscopic subtotal cholecystectomy with drainage of gallbladder abscess, intraoperative EGD had two days of zosyn second day of Rocephin and Flagyl Remains on Rocephin and Flagyl WBC today 10.5; afebrile Transfer initiated to [facility] under general surgery Patient returned to NPO Status except medications/ice chips per General surgery on rounds today GERD: Reglan Protonix IVP Generalized anxiety: Supportive care Continue home Prozac. Obstructive sleep apnea Home CPAP ordered- encourage use while sleeping chest x-ray negative CKD 3A: Baseline creatinine 1-1.3. Creatinine 129 today. Continue to monitor daily. Avoid nephrotoxic agents Document accurate I&O/daily weight Diabetes Type 2 with hyperglycemia: Last A1c 9.2 in July of 2023. A1c 9.1 Hyperglycemic on admission greater than 300. Monitor blood glucose a.c. and HS cover sliding scale insulin. Continue Lantus; may hold if patient is NPO or otherwise not taking in oral Hold home dose jardiance HTN keep lopressor BID 108/70 HR 68 today add parameters please note normally on lasix, lopressor, lipitor Migraines prophylactic topamax DVT px: EPC only GI px: Protonix DC planning: Home with [facility] pending clinical progress. Patient to transfer to [facility] for GI consultation under General Surgery Dr Smyth. Sara Mendieta APRN-MAXI [facility] Internal Medicine 7AM-7PM (all facilities): EpicChat or page through [employer]. 7PM-7AM ([facility], [facility]iatry and [facility]patient Rehab): EpicChat or page, [phone]. 7PM-7AM ([facility], [place], [place] and [facility] Rehab): EpicChat or page through [employer]. This note is dictated with the use of M*Modal. Please note that this dictation was completed with computer voice recognition software. Quite often unanticipated grammatical, syntax, homophones, and other interpretive errors are inadvertently transcribed by the computer software. Please disregard these errors. Please excuse any errors that have escaped final proofreading. LONG Rondon 11/24/23 1329 LONG Rondon 11/24/23 1412 * KEYON Sampson - 11/23/2023 1:07 PM EDT NUTRITION ADULT INITIAL EVALUATION NUTRITION ASSESSMENT Reason To Be Seen: Nutrition Screen = unplanned wt loss and poor PO intakes RN [employer] Hospital Occurrences: adm dx: Fistula of gallbladder Admit Diagnosis: Patient Active Problem List Diagnosis Fistula of gallbladder Bilateral leg edema Gastroesophageal reflux disease without esophagitis Generalized anxiety disorder Memory loss Nonalcoholic fatty liver Obstructive sleep apnea syndrome Stage 3a chronic kidney disease (CKD) ([facility]) Type 2 diabetes mellitus with hyperglycemia, without long-term current use of insulin ([facility]) Duodenal fistula Hyperglycemia Past Medical History: Past Medical History: Diagnosis Date Diabetes mellitus type 2, controlled ([facility]) Visual impairment Past Surgical History:History reviewed. No pertinent surgical history. Allergies: No Known Allergies Nutrition Focused Physical Findings-- All information was obtained per review of EMR and/or contactwith clerical and office support workers on site. As per nutrition flow sheet- Skin: Skin Color: [place] (11/23/23799) Wound: Gastrointestinal: Abdomen Assessment: Obese, Tenderness, Soft (11/23/23799) Last BM Date: 11/21/23 (11/21/23 1100) Passing Flatus: Yes (11/23/23799) RUQ Bowel Sounds: Active (11/23/23799) LUQ Bowel Sounds: Active (11/23/23799) RLQ Bowel Sounds: Active (11/23/23799) LLQ Bowel Sounds: Active (11/23/23799) GI Symptoms: Loss of appetite (11/23/23799) Edema: Generalized Edema: +1 (11/23/23799) Labs: Results from last 3 days Lab Units 11/23/23 0502 11/22/23 0511 11/21/23 0512 SODIUM mmol/L 139 138 140 POTASSIUM mmol/L 3.6 3.8 3.5 CHLORIDE mmol/L 107 105 106 CO2 mmol/L 21* 25 23 BUN mg/dL 10 14 17 CREATININE mg/dL 1.11 1.40* 1.11 CALCIUM mg/dL 8.5 8.8 8.8 ALBUMIN g/dL 2.9* 3.0* 3.1* ALK PHOS U/L 99 111 110 ALT U/L 17 20 20 AST U/L 18 21 20 Results from last 7 days Lab Units 11/23/23 1115 11/23/23 0502 11/22/23 2129 11/22/23 1602 11/22/23 1113 11/22/23 0511 11/21/23 1633 BEDSIDE GLUCOSE mg/dL 175* -- 116* 204* 256* -- 201* GLUCOSE mg/dL -- 168* -- -- -- 183* -- Results from last 3 days Lab Units 11/23/23 0502 11/22/23 0511 11/21/23 0512 MAGNESIUM mg/dL 2.1 2.4 1.9 No data from last 3 days. Results from last 3 days Lab Units 11/23/23 0502 11/22/23 0511 11/21/23 0512 WBC X10E9/L 6.3 6.6 6.4 HEMOGLOBIN g/dL 13.1 13.7 13.3 HEMATOCRIT % 38.1* 40.1 39.5 PLATELETS X10E9/L 212 239 246 MCV fL 95 96 96 No results found for: [id number] No results found for: FOLATE No results found for: IRON , TIBC , FERRITIN No results found for: IRONSAT Lab Results Component Value Date HGBA1C 9.2 (H) 07/30/2023 Lab Results Component Value Date CHOL 133 (L) 11/12/2021 Lab Results Component Value Date HDL 52 11/12/2021 No results found for: LIPIDPROF No results found for: VIDHYDROX Medications/ Parenteral: Medications Prior to Admission Medication Sig Dispense Refill Last Dose clonazePAM (KlonoPIN) 2 mg tablet Take 1 tablet (2 mg total) by mouth Three times daily as needed. empagliflozin (JARDIANCE) 25 mg tablet tablet Take 1 tablet (25 mg total) by mouth in the morning. furosemide (LASIX) 40 mg tablet Take 1 tablet (40 mg total) by mouth daily. metoclopramide (REGLAN) 10 mg tablet Take 1 tablet (10 mg total) by mouth in the morning and 1 tablet (10 mg total) at noon and 1 tablet (10 mg total) in the evening and 1 tablet (10 mg total) beforebedtime. 11/20/2023 at 0800 metoprolol tartrate (LOPRESSOR) 25 mg tablet Take 1 tablet (25 mg total) by mouth in the morning and 1 tablet (25 mg total) before bedtime. 11/20/2023 at 0800 SUMAtriptan (IMITREX) 50 mg tablet Take 1 tablet (50 mg total) by mouth once as needed for migraine. atorvastatin (LIPITOR) 40 mg tablet Take 1 tablet (40 mg total) by mouth in the morning. cyclobenzaprine (FLEXERIL) 10 mg tablet Take 1 tablet (10 mg total) by mouth 2 (two) times a day asneeded for muscle spasms. (Patient not taking: Reported on 11/20/2023) 10 tablet 0 Unknown FLUoxetine (PROzac) 20 MG tablet Take 1 tablet (20 mg total) by mouth in the morning. glipiZIDE (GLUCOTROL) 10 mg tablet Take 1 tablet (10 mg total) by mouth in the morning and 1 tablet(10 mg total) in the evening. Take before meals. ibuprofen (MOTRIN) 800 mg tablet Take 1 tablet (800 mg total) by mouth every 6 (six) hours as needed for pain. (Patient not taking: Reported on 11/20/2023) 30 tablet 0 Unknown metFORMIN (GLUCOPHAGE) 500 mg tablet Take 1 tablet (500 mg total) by mouth in the morning and 1 tablet (500 mg total) in the evening. Take with meals. methocarbamoL (ROBAXIN) 750 mg tablet Take 1 tablet (750 mg total) by mouth 2 (two) times a day as needed for muscle spasms. nabumetone (RELAFEN) 500 mg tablet Take 1 tablet (500 mg total) by mouth 2 (two) times a day as needed. omeprazole (PriLOSEC) 20 mg capsule Take 1 capsule (20 mg total) by mouth every morning before breakfast. rifAXIMin (XIFAXAN) 550 mg tablet Take 1 tablet (550 mg total) by mouth every 8 (eight) hours. topiramate (TOPAMAX) 25 mg tablet Take 1 tablet (25 mg total) by mouth in the morning and 1 tablet (25 mg total) before bedtime. Current Facility-Administered Medications Medication Dose Route Frequency Provider Last Rate Last Admin acetaminophen (TYLENOL) tablet 650 mg 650 mg oral Q6H PRN García D Krotzer, BOUNTY HUNTER- FARMWORKER 650 mg at 11/23/23 0802 calcium gluconate 3,000 mg in sodium chloride 0.9 % 100 mL IVPB 3,000 mg intravenous PRN García D Krotzer, BOUNT[employer] H[employer]TER-FARMWORKER calcium gluconate IVPB 2000 mg/100 mL (20 mg/mL premix) 4,000 mg intravenous PRN García D Krotzer, BOUNTY HUNTER-FARMWORKER calcium gluconate IVPB 2000 mg/100 mL (20 mg/mL premix) 2,000 mg intravenous PRN García Fay, BOUNTY HUNTER-FARMWORKER cefTRIAXone (ROCEPHIN) IVPB 2000 mg/50 mL in iso-osmotic dextrose (40 mg/mL premix) 2,000 mg intravenous Q24H Anahy Cooper MD 100 mL/hr at 11/23/23 1249 2,000 mg at 11/23/23 1249 dextrose (GLUTOSE) 40 % gel 15 g 15 g oral PRN García Lynnzer, BOUNTY HUNTER-FARMWORKER dextrose 5 % (D5W) infusion 100 mL/hr intravenous Continuous PRN García Fay, BOUNTY HUNTER-FARMWORKER dextrose 50 % in water (D50W) 50% solution 25 mL 25 mL intravenous PRN García Fay, BOUNT[employer] HUNTER-FARMWORKER FLUoxetine (PROzac) capsule 20 mg 20 mg oral Daily García Fay, BOUNTY HUNTER-FARMWORKER 20 mg at 11/23/23 0751 glucagon HCL injection 1 mg 1 mg intramuscular PRN García Fay [employer] H[employer]FARMWORKER insulin glargine (LANTUS, SEMGLEE) injection pen 10 Units 10 Units subcutaneous Daily García Fay BOUNT[employer] H[employer]TER[employer]FARMWORKER 10 Units at 11/22/23 0821 insulin lispro (HumaLOG) injection 3-18 Units 3-18 Units subcutaneous With meals and nightly García Schwab BOUNT[employer] HUNTER-FARMWORKER 6 Units at 11/22/23 1604 magnesium sulfate IVPB 2000 mg/50 mL in iso-osmotic water (40 mg/mL premix) 2,000 mg intravenous PRN García Fay, BOUNTY HUNTER-FARMWORKER Stopped at 11/21/23 0935 magnesium sulfate IVPB 4000 mg/100 mL in iso-osmotic water (40 mg/mL premix) 4,000 mg intravenous PRN García Fay, BOUNT[employer] HUNTER-FARMWORKER metoprolol tartrate (LOPRESSOR) tablet 25 mg 25 mg oral BID Cleo Hollis BOUNT[employer] HUNTER- FARMWORKER 25 mg at 11/23/23 0754 metroNIDAZOLE (FLAGYL) IVPB 500 mg/100 mL in iso-osmotic sodium chloride (5 mg/mL premix) 500 mg intravenous Q12H Anahy Cooper MD Stopped at 11/23/23 0212 morphine injection 2 mg 2 mg intravenous Q4H PRN Cleo Hollis APRN-FARMWORKER 2 mg at 11/23/23 1142 ondansetron (PF) (ZOFRAN) injection 4 mg 4 mg intravenous Q6H PRN García Lynnzer, BOUNT[employer] HUNTER-FARMWORKER pantoprazole (PROTONIX) injection 40 mg 40 mg intravenous Q24H BASILIA Anahy Cooper MD 40 mg at 11/23/23 0756 potassium chloride (K-TAB,KLOR-CON) CR tablet 30-50 mEq 30-50 mEq oral PRN García D Krotzer, BOUNTY HUNTER-CNP30 mEq at 11/23/23 0752 Or potassium chloride (KAYCIEL) 20 mEq/15 mL solution 30-50 mEq 30-50 mEq oral PRN García D Krotzer, BOUNT[employer] HUN[employer]FARMWORKER sodium phosphate 20 mmol in sodium chloride 0.9 % 250 mL IVPB 20 mmol intravenous PRN García D Krotzer, BOUNT[employer] HUNTER-FARMWORKER Or sodium phosphate 20 mmol in sodium chloride 0.9 % 100 mL IVPB 20 mmol intravenous PRN García D Krotzer, BOUNT[employer] HUNTER[employer]FARMWORKER Or sod phos di, mono-K phos mono (K-PHOS NEUTRAL) 250 mg tablet 2 tablet 2 tablet oral PRN García D Krotzer, BOUNT[employer] HUNTER-FARMWORKER sodium chloride 0.9 % flush bag 25 mL intravenous PRN García D Krotzer, BOUNT[employer] HUNTER-FARMWORKER sodium chloride 0.9 % infusion 20 mL/hr intravenous Continuous PRN García D Shanezer, BOUNT[employer] HUNTER-FARMWORKER sodium chloride 0.9 % infusion 75 mL/hr intravenous Continuous Cleo Hollis APRN-MAXI sodium chloride 0.9 % infusion 75 mL/hr intravenous Continuous Anahy Cooper MD 75 mL/hr at 11/23/23 1106 75 mL/hr at 11/23/23 1106 topiramate (TOPAMAX) tablet 25 mg 25 mg oral BID Garcíaelvira Lynnzer, BOUNT[employer] HUNTER-FARMWORKER 25 mg at 11/23/23 0756 Nutrition Findings/Summary: Patient presented with abdominal pain. Per H&P patient's appetite has been decreased and difficulty eating due to abdominal pain. Patient's wt hx indicates a weight loss of 3.17% in 2 months with poor appetite. Currently patient is NPO for possible cholecystectomy procedure. Recommend to start oral nutritional supplement when diet is able to be advanced. Unable to perform nutrition focused physical exam at this time due to not being at facility currently. Anthropometrics: Ht Readings from Last 1 Encounters: 11/20/23 177.8 cm (5' 10 ) Wt Readings from Last 10 Encounters: 11/23/23 131.3 kg (289 lb 8 oz) 10/04/23 135.6 kg (299 lb) 12/05/21 (!) 162.7 kg (358 lb 11.2 oz) 02/12/16 (!) 145.6 kg (321 lb) -3.17% in 2 months [place] Body Weight: 75 kg Percent [place] Body Weight: 175% Body Mass Index: Body mass index is 41.54 kg/m . BMI Category: Obese class 3 (> or = 40.00) Diet/ Nutrition Order Review: Dietary Orders (From admission, onward) Start Ordered 11/23/23 0001 Adult diet NPO; Except medications Diet effective midnight Question Answer Comment Diet Type: NPO NPO Except: Except medications 11/22/23 1222 Diet Intakes: Percent Meals Eaten (%): 100 (11/21/23 1636) Good x 1 meal Intake/ Output Last 24 hrs: No intake or output data in the 24 hours ending 11/23/23 1307 Oral Supplemental Intake/ Acceptance: [] 75-100% [] 50-75% [] 25-50% [] <25% [x] NPO [] Unable to assess [place] Body Weight (75 kg) used to estimate nutrition needs Estimated Energy Needs: ~2100-2400kcals daily. Method and weight used: 28-32 kcal/kg IBW Estimated Protein Needs: ~90-150 grams daily. Method and weight used: 1.2-2.0 gm/kg IBW Estimated Fluid Needs: ~6549-1781 ml daily. Method Used: 1 ml/kcal Malnutrition Status: Malnutrition Present: Need more information at this time NUTRITION DIAGNOSIS: Intake Diagnosis: Inadequate oral intake (NI 2.1) related to inability to consume sufficient energyas evidenced by patient with decreased appetite, poor po intakes for greater than 1 month, NPO for procedure. NUTRITION INTERVENTIONS: Meals & snacks: Advance diet when medically able Supplements (medical food, vitamin or mineral): Start oral nutritional supplements when diet is advanced GOALS: Patient to meet calorie and protein needs RECOMMENDATIONS: Advance diet when able Start ONS when diet is advanced NUTRITION MONITORING AND EVALUATION: Will monitor po intakes and supplement tolerance, Weights, Nutrition Related Labs, POC & Follow. [] Progressing toward goal [x] Not progressing [] Progress toward goal declining [] Goal achieved Farhana Teran RD, KEYON Clinical Dietitian [facility] [phone] 11/23/23 * Ermelinda Pretty MD - 11/23/2023 7:15 AM EDT Images from the original note were not included. This [facility] INTERNAL MEDICINE [facility] [address] [id number] Hospital Medicine Progress Note Patient: Boo Capps Date of : 1960 [place] PCP: DAVION PRITCHARD MD Admission date: 11/20/2023 10:25 AM Encounter date: 11/23/23 SUBJECTIVE Chief complaints: Chief Complaint Patient presents with Abdominal Pain Interval History: Status: unchanged. No overnight events or new complaints. Patient reports when he lies on his right side he is nauseated if he lies on his left he feels better. Patient is thinking about ice cream he cannot wait to eat. Denies any nausea or vomiting at the moment. Review of Systems Constitutional: Positive for appetite change. Negative for activity change, chills, diaphoresis, fatigue and fever. HENT: Negative for tinnitus and trouble swallowing. Eyes: Negative for visual disturbance. Respiratory: Negative for cough, chest tightness, shortness of breath and wheezing. Cardiovascular: Negative for chest pain, palpitations and leg swelling. Gastrointestinal: Positive for abdominal pain and nausea. Negative for diarrhea and vomiting. Genitourinary: Negative for difficulty urinating. Skin: Negative for rash. Neurological: Negative for dizziness, syncope, speech difficulty, weakness, light-headedness, numbness and headaches. Psychiatric/Behavioral: Negative for sleep disturbance. OBJECTIVE BP 139/66 Pulse 63 Temp 36.3 C (97.4 F) (Oral) Resp 18 Ht 177.8 cm (5' 10 ) Wt 131.3 kg (289 lb 8 oz) SpO2 92% BMI 41.54 kg/m Intake/Output Summary (Last 24 hours) at 11/23/2023 1605 Last data filed at 11/23/2023 1550 Gross per 24 hour Intake 700 ml Output 20 ml Net 680 ml Physical Exam Vitals and nursing note reviewed. Constitutional: General: He is not in acute distress. HENT: Head: Normocephalic and atraumatic. Right Ear: External ear normal. Left Ear: External ear normal. Nose: Nose normal. Mouth/Throat: Mouth: Mucous membranes are moist. Pharynx: Oropharynx is clear. Eyes: Extraocular Movements: Extraocular movements intact. Pupils: Pupils are equal, round, and reactive to light. Neck: Vascular: No carotid bruit or JVD. Cardiovascular: Rate and Rhythm: Normal rate and regular rhythm. Pulses: Normal pulses. Pulmonary: Effort: Pulmonary effort is normal. Breath sounds: Normal breath sounds. Abdominal: General: Bowel sounds are normal. Palpations: Abdomen is soft. Tenderness: There is abdominal tenderness in the right upper quadrant and epigastric area. There isno right CVA tenderness or left CVA tenderness. Musculoskeletal: Right lower leg: No edema. Left lower leg: No edema. Lymphadenopathy: Cervical: No cervical adenopathy. Skin: General: Skin is warm and dry. Capillary Refill: Capillary refill takes less than 2 seconds. Neurological: General: No focal deficit present. Mental Status: He is alert and oriented to person, place, and time. Psychiatric: Mood and Affect: Mood normal. Behavior: Behavior normal. Thought Content: Thought content normal. Judgment: Judgment normal. Medications Scheduled: [Transfer Hold] cefTRIAXone (ROCEPHIN) IV, 2,000 mg, intravenous, Q24H [Transfer Hold] FLUoxetine, 20 mg, oral, Daily [Transfer Hold] insulin glargine, 10 Units, subcutaneous, Daily [Transfer Hold] insulin lispro, 3-18 Units, subcutaneous, With meals and nightly [Transfer Hold] metoprolol tartrate, 25 mg, oral, BID [Transfer Hold] metroNIDAZOLE, 500 mg, intravenous, Q12H [Transfer Hold] pantoprazole, 40 mg, intravenous, Q24H BASILIA [Transfer Hold] topiramate, 25 mg, oral, BID Infusions: [Transfer Hold] dextrose 5 % in water, 100 mL/hr [Transfer Hold] sodium chloride 0.9 %, 20 mL/hr [Transfer Hold] sodium chloride 0.9 %, 75 mL/hr [Transfer Hold] sodium chloride 0.9 %, 75 mL/hr, Last Rate: 75 mL/hr (11/23/23 1106) As Needed: [Transfer Hold] acetaminophen [Transfer Hold] calcium gluconate [Transfer Hold] calcium gluconate [Transfer Hold] calcium gluconate [Transfer Hold] dextrose [Transfer Hold] dextrose 5 % in water [Transfer Hold] dextrose 50 % in water (D50W) [Transfer Hold] glucagon (human recombinant) [Transfer Hold] magnesium sulfate [Transfer Hold] magnesium sulfate [Transfer Hold] morphine injection [Transfer Hold] ondansetron [Transfer Hold] potassium chloride OR [Transfer Hold] potassium chloride [Transfer Hold] sodium phosphate IV OR [Transfer Hold] sodium phosphate IV - central line OR [Transfer Hold] sod phos di, mono-K phos mono [Transfer Hold] sodium chloride [Transfer Hold] sodium chloride 0.9 % Allergies: Patient has no known allergies. Labs Recent Results (from the past 24 hour(s)) Bedside Glucose *Place/Obtain serum glucose if >500(>600 MRH) per glucometer. Collection Time: 11/22/23 9:29 PM Result Value Ref Range Bedside glucose 116 (H) 65 - 99 mg/dL Comprehensive metabolic panel Collection Time: 11/23/23 5:02 AM Result Value Ref Range Sodium 139 134 - 146 mmol/L Potassium, Bld 3.6 3.5 - 5.0 mmol/L Chloride 107 98 - 109 mmol/L CO2 21 (L) 22 - 32 mmol/L Anion gap 11 5 - 15 mmol/L BUN 10 5 - 27 mg/dL Creatinine 1.11 0.70 - 1.20 mg/dL Glucose 168 (H) 65 - 99 mg/dL Calcium 8.5 8.5 - 10.5 mg/dL Total Protein 6.7 6.0 - 8.0 g/dL Albumin 2.9 (L) 3.2 - 5.3 g/dL Alkaline Phosphatase 99 39 - 130 U/L AST 18 0 - 41 U/L ALT 17 0 - 40 U/L Total bilirubin 1.5 (H) 0.3 - 1.2 mg/dL eGFR (CKD-EPI)non-race dependent 76 >59 ml/min/1.73sq.m Magnesium Collection Time: 11/23/23 5:02 AM Result Value Ref Range Magnesium 2.1 1.8 - 2.6 mg/dL CBC auto differential Collection Time: 11/23/23 5:02 AM Result Value Ref Range White Blood Cells 6.3 4.0 - 11.0 X10E9/L RBC count 4.00 (L) 4.10 - 5.70 X10E12/L Hemoglobin 13.1 13.0 - 17.0 g/dL Hematocrit 38.1 (L) 39 - 49 % MCV 95 80 - 100 fL MCH 32.7 27 - 34 pg MCHC 34.4 32 - 36 g/dL RDW 14.8 11.5 - 15.0 % Platelets 212 150 - 450 X10E9/L MPV 7.9 7 - 12 fL % neutrophils 64.2 % % lymphocytes 25.4 % % monocytes 7.2 % % eosinophils 2.7 % % Basophils 0.5 % Neutrophils Absolute (A) 4.0 1.5 - 6.6 X10E9/L Lymphocytes Absolute 1.6 1.0 - 3.5 X10E9/L Monocytes Absolute 0.5 0 - 0.9 X10E9/L Eosinophils Absolute 0.2 0.0 - 0.4 X10E9/L Basophils Absolute 0.0 0.0 - 0.2 X10E9/L Hemoglobin A1c Collection Time: 11/23/23 5:02 AM Result Value Ref Range Hemoglobin A1C 9.1 (H) 4.4 - 5.6 % Average glucose 214 mg/dL Bedside Glucose *Place/Obtain serum glucose if >500(>600 MRH) per glucometer. Collection Time: 11/23/23 11:15 AM Result Value Ref Range Bedside glucose 175 (H) 65 - 99 mg/dL Radiology X-ray chest 1 view Result Date: 11/21/2023 Narrative: Chest radiograph dated: 11/21/2023. Reason for study: surgical clearance. Comparison studies: Chest x-ray from 12/05/2021. Technique: Portable upright chest 1 view AP. Findings: Mild cardiomegaly. No willian pulmonary edema. No pneumothorax, significant pleural effusions or focal consolidation. No acute osseous abnormality. IMPRESSION: No acute cardiopulmonary process identified Finalized by German Cardenas MD on 11/21/2023 4:10 PM X-ray abdomen ap 1 view Result Date: 11/20/2023 Narrative: HISTORY: Abdominal pain COMPARISON: CT abdomen and pelvis 11/18/2023 FINDINGS: Multiple supine views of the abdomen were obtained. Nonobstructive bowel gas pattern. Moderate stool burden inthe colon. Vascular calcifications in the pelvis. No acute osseous abnormality. IMPRESSION: * Nonobstructive bowel gas pattern with moderate stool burden. Finalized by Philip Adams MD on 11/20/2023 2:[address] abdomen and pelvis with and without contrast Result Date: 11/19/2023 Narrative: CT ABDOMEN AND PELVIS W WO CONT HISTORY: Generalized abdominal pain COMPARISON: CT abdomen pelvis 06/06/2012 TECHNIQUE: CT images of abdomen and pelvis obtained with and without intravenouscontrast. Automated exposure control was utilized. All CT scans at this facility use dose modulation, iterative reconstruction, and/or weight based dosing when appropriate to reduce radiation dose toas low as reasonably achievable. CONTRAST: Oral: None IV: 100 mL Omnipaque 300 FINDINGS: LOWER CHEST: Bilateral gynecomastia. Evaluation of the lung bases is suboptimal secondary to respiratory motion artifact. LIVER AND BILIARY: Noncirrhotic liver morphology. No suspicious hepatic mass or lesion. T he portal venous system appears patent. There is gallbladder wall thickening and pericholecystic fat stranding. Large volume of gas seen within the gallbladder which appears to be extending to a defect in the wall which closely abuts and likely communicates with the adjacent duodenum. The adjacent D2 segment of duodenum has evidence of wall thickening and surrounding fat stranding. Equivocal fistulous communication (series 4, image 24). PANCREAS: Unremarkable SPLEEN: Unremarkable. ADRENALS: No adrenal mass or lesion. KIDNEYS, URETERS, AND BLADDER: No suspicious renal mass or lesion.. No collecting system dilatation. No renal calculi.. Ureters and bladder are unremarkable. GI TRACT AND PERITO NEUM: The appendix is not well-visualized. Terminal ileum is unremarkable appearing. There is no evidence of bowel obstruction. Large burden of stool in the colon. Inflammatory changes with apparent defect within the wall of the D2 segment of duodenum and adjacent gallbladder. VASCULATURE: Unremarkable LYMPH NODES: No enlarged lymph nodes by size criteria. REPRODUCTIVE ORGANS: Unremarkable MUSCULOSKELETAL: No acute abnormalities. IMPRESSION: * Findings most compatible with choleduodenal fistulawith inflammatory changes about both the D2 segment of the duodenum and adjacent gallbladder. Giventhe degree of inflammatory change, correlate for underlying duodenal ulceration. No evidence of bowel obstruction/gallstone ileus. THIS REPORT CONTAINS A SIGNIFICANT RESULT AND/OR RECOMMENDATION, WHICH REQUIRES THE ATTENTION OF THE LICENSED CAREGIVER RESPONSIBLE FOR THIS PATIENT. THEREFORE, I SPECIFICALLY DESIGNATED THIS REPORT TO BE TELEPHONED BY THE RADIOLOGY DEPARTMENT. FINDINGS WERE INSTRUCTED TO BE CALLED TO THE CLINICAL SERVICE ON 11/19/2023 AT 1620 hours. Approved by Resident Juan Mcmillan DO on 11/19/2023 2:04 PM I, Michelet Alejandro MD have personally reviewed the image(s) and agree with and/or edited the report Finalized by Michelet Alejandro MD on 11/19/2023 4:[address] abdomen and pelvis with and without contrast Result Date: 11/19/2023 Narrative: THIS EXAM WAS PERFORMED AT [facility] CT ABDOMEN AND PELVIS W WO CONT HISTORY: Generalized abdominal pain COMPARISON: CT abdomen pelvis 06/06/2012 TECHNIQUE: CT images of abdomen and pelvis obtained with and without intravenous contrast. Automated exposure control was utilized. All CT scans at this facility use dose modulation, iterative reconstruction, and/or weight based dosing when appropriate to reduce radiation dose to as low as reasonably achievable. CONTRAST: Oral: None IV: 100 mL Omnipaque 300 FINDINGS: LOWER CHEST: Bilateral gynecomastia. Evaluation of the lung bases is suboptimal secondary to respiratory motion artifact. LIVER AND BILIARY: Noncirrhotic liver morphology. No suspicious hepatic mass or lesion. The portal venous system appears patent. There is gallbladder wall thickening and pericholecystic fat stranding. Large volume of gas seen within the gallbladder which appears to be extending to a defect in the wall which closely abuts and likely communicates withthe adjacent duodenum. The adjacent D2 segment of duodenum has evidence of wall thickening and surrounding fat stranding. Equivocal fistulous communication (series 4, image 24). PANCREAS: Unremarkable SPLEEN: Unremarkable. ADRENALS: No adrenal mass or lesion. KIDNEYS, URETERS, AND BLADDER: No suspicious renal mass or lesion.. No collecting system dilatation. No renal calculi.. Ureters and bladder are unremarkable. GI TRACT AND PERITONEUM: The appendix is not well-visualized. Terminal ileum is unremarkable appearing. There is no evidence of bowel obstruction. Large burden of stool in the colon. Inflammatory changes with apparent defect within the wall of the D2 segment of duodenum and adjacent gallbladder. VASCULATURE: Unremarkable LYMPH NODES: No enlarged lymph nodes by size criteria. REPRODUCTIVE ORGANS: Unremarkable MUSCULOSKELETAL: No acute abnormalities. 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 Given the degree of inflammatory change, correlate for underlying duodenal ulceration. No evidence of bowel obstruction/gallstone ileus. THIS REPORT CONTAINS A SIGNIFICANT RESULT AND/OR RECOMMENDATION, WHICH REQUIRES THE ATTENTION OF THE LICENSED CAREGIVER RESPONSIBLEFOR THIS PATIENT. THEREFORE, I SPECIFICALLY DESIGNATED THIS REPORT TO BE TELEPHONED BY THE RADIOLOGY DEPARTMENT. FINDINGS WERE INSTRUCTED TO BE CALLED TO THE CLINICAL SERVICE ON 11/19/2023 AT 1620 hours. Approved by Resident Juan Mcmillan DO on 11/19/2023 2:04 PM IMichelet MD have personally reviewed the image(s) and agree with and/or edited the report Finalized by Michelet Alejandro MD on 11/19/2023 4:20 PM HOSPITAL PROBLEM LIST Principal Problem: Fistula of gallbladder Active Problems: Gastroesophageal reflux disease without esophagitis Generalized anxiety disorder Obstructive sleep apnea syndrome Stage 3a chronic kidney disease (CKD) ([facility]) Type 2 diabetes mellitus with hyperglycemia, without long-term current use of insulin ([facility]) Duodenal fistula Hyperglycemia ASSESSMENT & PLAN Fistula gallbladder/duodenal fistula: -General surgery following. -had two days of zosyn second day of Rocephin and Flagyl - NPO at midnight. - Normal saline at 75 mL/hr. Plan for surgery on 11/23/2023. -WBC today 6.3 afebrile -keep fluids until surgery then Bryan can decide -total bili is down to 1.5 LFTs are normal excluding that. -CO2 21 glucose 168 GERD: -Reglan. Generalized anxiety: -Supportive care. Continue home Prozac. Obstructive sleep apnea - Home CPAP ordered. -chest x-ray negative CKD 3A: -Baseline creatinine 1-1.3. -Creatinine 1.11 today. - Continue to monitor daily. Diabetes Type 2 with hyperglycemia: - Last A1c 9.2 in July of 2023. A1c at on 9.1 -Hyperglycemic on admission greater than 300. -Monitor blood glucose a.c. and HS cover sliding scale insulin. -re-check A1C with surgery and noted this am 168 -keep lantus 10 units daily okay to hold this until he comes back from surgery okay to even restarttomorrow if blood sugars on the low side -normally on jardiance HTN -keep lopressor BID 108/70 HR 68 today add parameters -please note normally on lasix, lopressor, lipitor Migraines -prophylactic topamax DVT px: EPC. DC planning: Full code, surgery today last ECHO EF preserved was cleared yesterday at moderate riskWill need a day or two discussed with Dr. Cooper plan will be two more days postop [facility] Internal Medicine 7AM-7PM (all facilities): EpicChat or page through [employer]. 7PM-7AM ([facility], [facility] Psychiatry and Inpatient Rehab): EpicChat or page, [phone]. 7PM-7AM ([facility], [place], [place] and [facility] Rehab): EpicChat or page through [employer]. This note is dictated with the use of M*Modal. Please note that this dictation was completed with computer voice recognition software. Quite often unanticipated grammatical, syntax, homophones, and other interpretive errors are inadvertently transcribed by the computer software. Please disregard these errors. Please excuse any errors that have escaped final proofreading. LONG Cole 11/23/23 5603 Physician Attestation I, Ermelinda Pretty MD, personally performed a face to face diagnostic evaluation on this patient. I have reviewed the note authored by the advance practice provider including history, review of systems,physical examination,medical decision making and agree with the assessment and plan as written. I have seen and evaluated the patient, I have repeated the salomon portions of the physical exam and concur with the MARI findings. I have reviewed all laboratory findings and imaging reports/films. I agree with the plan as noted. * Jose Maria Block MD - 11/22/2023 2:28 PM EDT Images from the original note were not included. [facility] [address] [facility] [id number] Hospital Medicine Progress Note Patient: Boo Capps Date of : 1960 Room: [facility] PCP: DAVION PRITCHARD MD Admission date: 11/20/2023 10:25 AM Encounter date: 11/22/23 SUBJECTIVE Chief complaints: Chief Complaint Patient presents with Abdominal Pain Interval History: Status: unchanged. No overnight events or new complaints. Review of Systems Review of Systems Constitutional: Positive for appetite change. Negative for activity change, chills, diaphoresis, fatigue and fever. HENT: Negative for tinnitus and trouble swallowing. Eyes: Negative for visual disturbance. Respiratory: Negative for cough, chest tightness, shortness of breath and wheezing. Cardiovascular: Negative for chest pain, palpitations and leg swelling. Gastrointestinal: Positive for abdominal pain and nausea. Negative for diarrhea and vomiting. Genitourinary: Negative for difficulty urinating. Skin: Negative for rash. Neurological: Negative for dizziness, syncope, speech difficulty, weakness, light-headedness, numbness and headaches. Psychiatric/Behavioral: Negative for sleep disturbance. OBJECTIVE BP 93/57 Pulse 65 Temp 36.2 C (97.2 F) (Oral) Resp 18 Ht 177.8 cm (5' 10 ) Wt 131.3 kg (289 lb 8 oz) SpO2 96% BMI 41.54 kg/m Intake/Output Summary (Last 24 hours) at 11/22/2023 1428 Last data filed at 11/21/2023 1636 Gross per 24 hour Intake 750 ml Output -- Net 750 ml Physical Exam Physical Exam Vitals and nursing note reviewed. Constitutional: General: He is not in acute distress. HENT: Head: Normocephalic and atraumatic. Right Ear: External ear normal. Left Ear: External ear normal. Nose: Nose normal. Mouth/Throat: Mouth: Mucous membranes are moist. Pharynx: Oropharynx is clear. Eyes: Extraocular Movements: Extraocular movements intact. Pupils: Pupils are equal, round, and reactive to light. Neck: Vascular: No carotid bruit or JVD. Cardiovascular: Rate and Rhythm: Normal rate and regular rhythm. Pulses: Normal pulses. Pulmonary: Effort: Pulmonary effort is normal. Breath sounds: Normal breath sounds. Abdominal: General: Bowel sounds are normal. Palpations: Abdomen is soft. Tenderness: There is abdominal tenderness in the right upper quadrant and epigastric area. There isno right CVA tenderness or left CVA tenderness. Musculoskeletal: Right lower leg: No edema. Left lower leg: No edema. Lymphadenopathy: Cervical: No cervical adenopathy. Skin: General: Skin is warm and dry. Capillary Refill: Capillary refill takes less than 2 seconds. Neurological: General: No focal deficit present. Mental Status: He is alert and oriented to person, place, and time. Psychiatric: Mood and Affect: Mood normal. Behavior: Behavior normal. Thought Content: Thought content normal. Judgment: Judgment normal. Medications Scheduled: cefTRIAXone (ROCEPHIN) IV, 2,000 mg, intravenous, Q24H FLUoxetine, 20 mg, oral, Daily insulin glargine, 10 Units, subcutaneous, Daily insulin lispro, 3-18 Units, subcutaneous, With meals and nightly metoclopramide, 10 mg, oral, 4x Daily metoprolol tartrate, 25 mg, oral, BID metroNIDAZOLE, 500 mg, intravenous, Q12H pantoprazole, 40 mg, intravenous, Q24H BASILIA topiramate, 25 mg, oral, BID Infusions: dextrose 5 % in water, 100 mL/hr sodium chloride 0.9 %, 20 mL/hr sodium chloride 0.9 %, 75 mL/hr, Last Rate: 75 mL/hr (11/22/23 1013) As Needed: acetaminophen calcium gluconate calcium gluconate calcium gluconate dextrose dextrose 5 % in water dextrose 50 % in water (D50W) glucagon (human recombinant) magnesium sulfate magnesium sulfate ondansetron potassium chloride OR potassium chloride sodium phosphate IV OR sodium phosphate IV - central line OR sod phos di, mono-K phos mono sodium chloride sodium chloride 0.9 % Allergies: Patient has no known allergies. Labs Recent Results (from the past 24 hour(s)) Bedside Glucose *Place/Obtain serum glucose if >500(>600 MRH) per glucometer. Collection Time: 11/21/23 4:33 PM Result Value Ref Range Bedside glucose 201 (H) 65 - 99 mg/dL Comprehensive metabolic panel Collection Time: 11/22/23 5:11 AM Result Value Ref Range Sodium 138 134 - 146 mmol/L Potassium, Bld 3.8 3.5 - 5.0 mmol/L Chloride 105 98 - 109 mmol/L CO2 25 22 - 32 mmol/L Anion gap 8 5 - 15 mmol/L BUN 14 5 - 27 mg/dL Creatinine 1.40 (H) 0.70 - 1.20 mg/dL Glucose 183 (H) 65 - 99 mg/dL Calcium 8.8 8.5 - 10.5 mg/dL Total Protein 7.0 6.0 - 8.0 g/dL Albumin 3.0 (L) 3.2 - 5.3 g/dL Alkaline Phosphatase 111 39 - 130 U/L AST 21 0 - 41 U/L ALT 20 0 - 40 U/L Total bilirubin 1.8 (H) 0.3 - 1.2 mg/dL eGFR (CKD-EPI)non-race dependent 57 (L) >59 ml/min/1.73sq.m Magnesium Collection Time: 11/22/23 5:11 AM Result Value Ref Range Magnesium 2.4 1.8 - 2.6 mg/dL CBC auto differential Collection Time: 11/22/23 5:11 AM Result Value Ref Range White Blood Cells 6.6 4.0 - 11.0 X10E9/L RBC count 4.18 4.10 - 5.70 X10E12/L Hemoglobin 13.7 13.0 - 17.0 g/dL Hematocrit 40.1 39 - 49 % MCV 96 80 - 100 fL MCH 32.8 27 - 34 pg MCHC 34.2 32 - 36 g/dL RDW 14.8 11.5 - 15.0 % Platelets 239 150 - 450 X10E9/L MPV 7.5 7 - 12 fL % neutrophils 53.7 % % lymphocytes 33.9 % % monocytes 7.7 % % eosinophils 3.7 % % Basophils 1.0 % Neutrophils Absolute (A) 3.6 1.5 - 6.6 X10E9/L Lymphocytes Absolute 2.2 1.0 - 3.5 X10E9/L Monocytes Absolute 0.5 0 - 0.9 X10E9/L Eosinophils Absolute 0.2 0.0 - 0.4 X10E9/L Basophils Absolute 0.1 0.0 - 0.2 X10E9/L Bedside Glucose *Place/Obtain serum glucose if >500(>600 MRH) per glucometer. Collection Time: 11/22/23 11:13 AM Result Value Ref Range Bedside glucose 256 (H) 65 - 99 mg/dL Radiology X-ray chest 1 view Result Date: 11/21/2023 Narrative: Chest radiograph dated: 11/21/2023. Reason for study: surgical clearance. Comparison studies: Chest x-ray from 12/05/2021. Technique: Portable upright chest 1 view AP. Findings: Mild cardiomegaly. No willian pulmonary edema. No pneumothorax, significant pleural effusions or focal consolidation. No acute osseous abnormality. IMPRESSION: No acute cardiopulmonary process identified Finalized by German Cardenas MD on 11/21/2023 4:10 PM X-ray abdomen ap 1 view Result Date: 11/20/2023 Narrative: HISTORY: Abdominal pain COMPARISON: CT abdomen and pelvis 11/18/2023 FINDINGS: Multiple supine views of the abdomen were obtained. Nonobstructive bowel gas pattern. Moderate stool burden inthe colon. Vascular calcifications in the pelvis. No acute osseous abnormality. IMPRESSION: * Nonobstructive bowel gas pattern with moderate stool burden. Finalized by Philip Adams MD on 11/20/2023 2:[address] abdomen and pelvis with and without contrast Result Date: 11/19/2023 Narrative: CT ABDOMEN AND PELVIS W WO CONT HISTORY: Generalized abdominal pain COMPARISON: CT abdomen pelvis 06/06/2012 TECHNIQUE: CT images of abdomen and pelvis obtained with and without intravenouscontrast. Automated exposure control was utilized. All CT scans at this facility use dose modulation, iterative reconstruction, and/or weight based dosing when appropriate to reduce radiation dose toas low as reasonably achievable. CONTRAST: Oral: None IV: 100 mL Omnipaque 300 FINDINGS: LOWER CHEST: Bilateral gynecomastia. Evaluation of the lung bases is suboptimal secondary to respiratory motion artifact. LIVER AND BILIARY: Noncirrhotic liver morphology. No suspicious hepatic mass or lesion. T he portal venous system appears patent. There is gallbladder wall thickening and pericholecystic fat stranding. Large volume of gas seen within the gallbladder which appears to be extending to a defect in the wall which closely abuts and likely communicates with the adjacent duodenum. The adjacent D2 segment of duodenum has evidence of wall thickening and surrounding fat stranding. Equivocal fistulous communication (series 4, image 24). PANCREAS: Unremarkable SPLEEN: Unremarkable. ADRENALS: No adrenal mass or lesion. KIDNEYS, URETERS, AND BLADDER: No suspicious renal mass or lesion.. No collecting system dilatation. No renal calculi.. Ureters and bladder are unremarkable. GI TRACT AND PERITO NEUM: The appendix is not well-visualized. Terminal ileum is unremarkable appearing. There is no evidence of bowel obstruction. Large burden of stool in the colon. Inflammatory changes with apparent defect within the wall of the D2 segment of duodenum and adjacent gallbladder. VASCULATURE: Unremarkable LYMPH NODES: No enlarged lymph nodes by size criteria. REPRODUCTIVE ORGANS: Unremarkable MUSCULOSKELETAL: No acute abnormalities. IMPRESSION: * Findings most compatible with choleduodenal fistulawith inflammatory changes about both the D2 segment of the duodenum and adjacent gallbladder. Giventhe degree of inflammatory change, correlate for underlying duodenal ulceration. No evidence of bowel obstruction/gallstone ileus. THIS REPORT CONTAINS A SIGNIFICANT RESULT AND/OR RECOMMENDATION, WHICH REQUIRES THE ATTENTION OF THE LICENSED CAREGIVER RESPONSIBLE FOR THIS PATIENT. THEREFORE, I SPECIFICALLY DESIGNATED THIS REPORT TO BE TELEPHONED BY THE RADIOLOGY DEPARTMENT. FINDINGS WERE INSTRUCTED TO BE CALLED TO THE CLINICAL SERVICE ON 11/19/2023 AT 1620 hours. Approved by Resident Juan Mcmillan DO on 11/19/2023 2:04 PM IMichelet MD have personally reviewed the image(s) and agree with and/or edited the report Finalized by Michelet Alejandro MD on 11/19/2023 4:[address] abdomen and pelvis with and without contrast Result Date: 11/19/2023 Narrative: THIS EXAM WAS PERFORMED AT [facility] CT ABDOMEN AND PELVIS W WO CONT HISTORY: Generalized abdominal pain COMPARISON: CT abdomen pelvis 06/06/2012 TECHNIQUE: CT images of abdomen and pelvis obtained with and without intravenous contrast. Automated exposure control was utilized. All CT scans at this facility use dose modulation, iterative reconstruction, and/or weight based dosing when appropriate to reduce radiation dose to as low as reasonably achievable. CONTRAST: Oral: None IV: 100 mL Omnipaque 300 FINDINGS: LOWER CHEST: Bilateral gynecomastia. Evaluation of the lung bases is suboptimal secondary to respiratory motion artifact. LIVER AND BILIARY: Noncirrhotic liver morphology. No suspicious hepatic mass or lesion. The portal venous system appears patent. There is gallbladder wall thickening and pericholecystic fat stranding. Large volume of gas seen within the gallbladder which appears to be extending to a defect in the wall which closely abuts and likely communicates withthe adjacent duodenum. The adjacent D2 segment of duodenum has evidence of wall thickening and surrounding fat stranding. Equivocal fistulous communication (series 4, image 24). PANCREAS: Unremarkable SPLEEN: Unremarkable. ADRENALS: No adrenal mass or lesion. KIDNEYS, URETERS, AND BLADDER: No suspicious renal mass or lesion.. No collecting system dilatation. No renal calculi.. Ureters and bladder are unremarkable. GI TRACT AND PERITONEUM: The appendix is not well-visualized. Terminal ileum is unremarkable appearing. There is no evidence of bowel obstruction. Large burden of stool in the colon. Inflammatory changes with apparent defect within the wall of the D2 segment of duodenum and adjacent gallbladder. VASCULATURE: Unremarkable LYMPH NODES: No enlarged lymph nodes by size criteria. REPRODUCTIVE ORGANS: Unremarkable MUSCULOSKELETAL: No acute abnormalities. 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 Given the degree of inflammatory change, correlate for underlying duodenal ulceration. No evidence of bowel obstruction/gallstone ileus. THIS REPORT CONTAINS A SIGNIFICANT RESULT AND/OR RECOMMENDATION, WHICH REQUIRES THE ATTENTION OF THE LICENSED CAREGIVER RESPONSIBLEFOR THIS PATIENT. THEREFORE, I SPECIFICALLY DESIGNATED THIS REPORT TO BE TELEPHONED BY THE RADIOLOGY DEPARTMENT. FINDINGS WERE INSTRUCTED TO BE CALLED TO THE CLINICAL SERVICE ON 11/19/2023 AT 1620 hours. Approved by Resident Juan Mcmillan DO on 11/19/2023 2:04 PM IMichelet MD have personally reviewed the image(s) and agree with and/or edited the report Finalized by Michelet Alejandro MD on 11/19/2023 4:20 PM HOSPITAL PROBLEM LIST Principal Problem: Fistula of gallbladder Active Problems: Gastroesophageal reflux disease without esophagitis Generalized anxiety disorder Obstructive sleep apnea syndrome Stage 3a chronic kidney disease (CKD) ([facility]) Type 2 diabetes mellitus with hyperglycemia, without long-term current use of insulin ([facility]) Duodenal fistula Hyperglycemia ASSESSMENT & PLAN Fistula gallbladder/duodenal fistula: General surgery following. Change Zosyn to Rocephin and Flagyl due to slight increase in creatinine. Clear liquid diet. NPO at midnight. Normal saline at 75 mL/hr. Plan for surgery on 11/23/2023. GERD: Reglan. Generalized anxiety: Supportive care. Continue home Prozac. Obstructive sleep apnea: Home CPAP ordered. CKD 3A: Baseline creatinine 1-1.3. Creatinine 1.4 today. Continue to monitor daily. Diabetes with hyperglycemia: Last A1c 9.2 in July of 2023. Hyperglycemic on admission greater than 300. Monitor blood glucose a.c. and HS cover sliding scale insulin. Hyperglycemia: Improving today. Blood glucose levels between 150 and 250. continue Lantus at 10 units daily to help with glucose control prior to surgery. Chest x-ray ordered negative for acute findings. Last echocardiogram completed on March 10, 2023 shows preserved ejection fraction with an LVEF of55-60%. Patient will likely be l moderate risk for surgical intervention secondary to hyperglycemia and insulin use prior to surgery. Monitor electrolytes daily replace per protocol. DVT px: EPC. DC planning: Discharge in 1-2 days. Surgical intervention scheduled for tomorrow, 11/23/2023. Appreciate General surgery input. LONG Rea, 11/22/2023 2:28 PM [facility] Internal Medicine 7AM-7PM (all facilities): [employer] or page through [employer]. 7PM-7AM ([facility], [facility] Psychiatry and Inpatient Rehab): [employer] or page, [phone]. 7PM-7AM ([place], [place], [place], [place] and [facility] Rehab): [employer] or page through [employer]. This note is dictated with the use of M*Modal. Please note that this dictation was completed with computer voice recognition software. Quite often unanticipated grammatical, syntax, homophones, and other interpretive errors are inadvertently transcribed by the computer software. Please disregard these errors. Please excuse any errors that have escaped final proofreading. LONG Rea 11/22/23 3951 I have seen and evaluated the patient, and have reviewed the history above and agree. I have repeated the salomon portions of the physical exam and concur with the MARI findings. I have reviewed all laboratory findings and imaging reports/films. I agree with the plan as noted above Dr Jose Maria Block MD, MRCP 11/22/2023 6:19 PM * Jodi Pérez RCP - 11/21/2023 1:51 PM EDT Pt's home CPAP unit setup at bedside for use and filled with water pt brought from home. Home unit within reach for pt. Pt puts self on/ [facility]. [facility] Narrative* Ermelinda Pretty MD - 11/24/2023 2:09 PM EDT Images from the original note were not included. [facility] [address] [id number] Hospital Medicine Discharge Summary Patient: Boo Capps Date of : 1960 Room: [facility] Encounter date: 11/24/23 Hospital Day: 5 DATE OF ADMISSION: 11/20/2023 DATE OF DISCHARGE:11/24/2023 DISCHARGE DIAGNOSES Principal Problem: Fistula of gallbladder Active Problems: Gastroesophageal reflux disease without esophagitis Generalized anxiety disorder Obstructive sleep apnea syndrome Stage 3a chronic kidney disease (CKD) ([facility]) Type 2 diabetes mellitus with hyperglycemia, without long-term current use of insulin ([facility]) Duodenal fistula Hyperglycemia [facility] General Surgery PCP: DAVION PRITCHARD MD PROCEDURES Robotic assisted laparoscopic subtotal cholecystectomy with drainage of gallbladder abscess, intraoperative EGD HOSPITAL COURSE SUMMARY Per HPI: Boo Capps is a 63 y.o. male who presents to the ED by EMS for evaluation of Abdominal pain. Pt reports difficulty eating with abdominal pain that has been going on for a few monthsnow. Pt states he was advised by his primary care doctor to come to the ED for his pain. Pt describes the pain as constant and sharp. Pt reports his last bowel movement was this morning and denies nausea or vomiting. Pt denies history of ulcers, blood in stool, and admits to drinking water though he states the water does not sit well with him. Pt reports minimal eating with his last meal being oatmeal. He was seen by his family physician on 11/04/[address] abdomen and pelvis. This rev ealed cholecysto duodenal fistula. Due to continued pain and CT findings he was sent over to our ERfor further management. He continues to have pain, rates it 4 out of 10. He reports that it is diffuse. Worsened by eating. Notes intermittent diarrhea. He is passing gas. He had a bowel movement yesterday. Patient hyperglycemic with blood glucose greater than [address] to [address] findings, patient be admitted to Medicine with general surgery consult for likely surgical intervention. Inpatient course as below: Fistula gallbladder/duodenal fistula Acute gangrenous cholecystitis with abscess General surgery following S/p Robotic assisted laparoscopic subtotal cholecystectomy with drainage of gallbladder abscess, intraoperative EGD had two days of zosyn second day of Rocephin and Flagyl Remains on Rocephin and Flagyl WBC today 10.5; afebrile Transfer initiated to [facility] under general surgery Patient returned to NPO Status except medications/ice chips per General surgery on rounds today GERD: Reglan Protonix IVP Generalized anxiety: Supportive care Continue home Prozac. Obstructive sleep apnea Home CPAP ordered- encourage use while sleeping chest x-ray negative CKD 3A: Baseline creatinine 1-1.3. Creatinine 129 today. Continue to monitor daily. Avoid nephrotoxic agents Document accurate I&O/daily weight Diabetes Type 2 with hyperglycemia: Last A1c 9.2 in July of 2023. A1c 9.1 Hyperglycemic on admission greater than 300. Monitor blood glucose a.c. and HS cover sliding scale insulin. Continue Lantus; may hold if patient is NPO or otherwise not taking in oral Hold home dose jardiance HTN keep lopressor BID 108/70 HR 68 today add parameters please note normally on lasix, lopressor, lipitor Migraines prophylactic topamax Discharge Day Progress Note 11/24/23 Status: stable No overnight events or new complaints. Patient seen and evaluated this morning. Reports he is currently feeling well despite some abdominal pain which is worse when he moves. He has been able to eat some of his liquid diet however he was requesting actual food. Discussed with him that this would need to wait for now due to his findings during surgery and plans from general surgery any verbalizes understanding. He was agreeable to transfer to [facility] and transfer has been initiated under general surgery. Review of Systems Constitutional: Positive for appetite change. Negative for activity change, chills, diaphoresis, fatigue and fever. HENT: Negative for tinnitus and trouble swallowing. Eyes: Negative for visual disturbance. Respiratory: Negative for cough, chest tightness, shortness of breath and wheezing. Cardiovascular: Negative for chest pain, palpitations and leg swelling. Gastrointestinal: Positive for abdominal pain. Negative for constipation, diarrhea, nausea and vomiting. +flatus Genitourinary: Negative for difficulty urinating. Skin: Negative for rash. Neurological: Negative for dizziness, syncope, speech difficulty, weakness, light-headedness, numbness and headaches. Psychiatric/Behavioral: Negative for sleep disturbance. Physical Exam BP 122/66 Pulse 66 Temp 36.3 C (97.4 F) (Oral) Resp 16 Ht 177.8 cm (5' 10 ) Wt (!) 137.4 kg (303 lb) SpO2 96% BMI 43.48 kg/m Temp: [36.2 C (97.1 F)-36.7 C (98 F)] 36.3 C (97.4 F) Pulse: [66-82] 66 Resp: [16-21] 16 BP: (104-128)/(52-71) 122/66 FiO2 (%): [21 %] 21 % SpO2: [93 %-100 %] 96 % O2 Device: None (Room air) O2 Flow Rate (L/min): [0 L/min] 0 L/min Intake/Output Summary (Last 24 hours) at 11/24/2023 1409 Last data filed at 11/24/2023 1303 Gross per 24 hour Intake 1400 ml Output 180 ml Net 1220 ml Vitals and nursing note reviewed. Constitutional: General: He is not in acute distress. HENT: Head: Normocephalic and atraumatic. Right Ear: External ear normal. Left Ear: External ear normal. Nose: Nose normal. Mouth/Throat: Mouth: Mucous membranes are moist. Pharynx: Oropharynx is clear. Eyes: Extraocular Movements: Extraocular movements intact. Pupils: Pupils are equal, round, and reactive to light. Neck: Vascular: No carotid bruit or JVD. Cardiovascular: Rate and Rhythm: Normal rate and regular rhythm. Pulses: Normal pulses. Pulmonary: Effort: Pulmonary effort is normal. Breath sounds: Normal breath sounds. Abdominal: General: Bowel sounds are normal. Palpations: Abdomen is soft. Tenderness: There is abdominal tenderness in the right upper quadrant and epigastric area. There isno right CVA tenderness or left CVA tenderness. Musculoskeletal: Right lower leg: No edema. Left lower leg: No edema. Lymphadenopathy: Cervical: No cervical adenopathy. Skin: General: Skin is warm and dry. Capillary Refill: Capillary refill takes less than 2 seconds. Neurological: General: No focal deficit present. Mental Status: He is alert and oriented to person, place, and time. Psychiatric: Mood and Affect: Mood normal. Behavior: Behavior normal. Thought Content: Thought content normal. Judgment: Judgment normal. Code Status: Full Code Labs Recent Results (from the past 48 hour(s)) Bedside Glucose *Place/Obtain serum glucose if >500(>600 MRH) per glucometer. Collection Time: 11/22/23 4:02 PM Result Value Ref Range Bedside glucose 204 (H) 65 - 99 mg/dL Bedside Glucose *Place/Obtain serum glucose if >500(>600 MRH) per glucometer. Collection Time: 11/22/23 9:29 PM Result Value Ref Range Bedside glucose 116 (H) 65 - 99 mg/dL Comprehensive metabolic panel Collection Time: 11/23/23 5:02 AM Result Value Ref Range Sodium 139 134 - 146 mmol/L Potassium, Bld 3.6 3.5 - 5.0 mmol/L Chloride 107 98 - 109 mmol/L CO2 21 (L) 22 - 32 mmol/L Anion gap 11 5 - 15 mmol/L BUN 10 5 - 27 mg/dL Creatinine 1.11 0.70 - 1.20 mg/dL Glucose 168 (H) 65 - 99 mg/dL Calcium 8.5 8.5 - 10.5 mg/dL Total Protein 6.7 6.0 - 8.0 g/dL Albumin 2.9 (L) 3.2 - 5.3 g/dL Alkaline Phosphatase 99 39 - 130 U/L AST 18 0 - 41 U/L ALT 17 0 - 40 U/L Total bilirubin 1.5 (H) 0.3 - 1.2 mg/dL eGFR (CKD-EPI)non-race dependent 76 >59 ml/min/1.73sq.m Magnesium Collection Time: 11/23/23 5:02 AM Result Value Ref Range Magnesium 2.1 1.8 - 2.6 mg/dL CBC auto differential Collection Time: 11/23/23 5:02 AM Result Value Ref Range White Blood Cells 6.3 4.0 - 11.0 X10E9/L RBC count 4.00 (L) 4.10 - 5.70 X10E12/L Hemoglobin 13.1 13.0 - 17.0 g/dL Hematocrit 38.1 (L) 39 - 49 % MCV 95 80 - 100 fL MCH 32.7 27 - 34 pg MCHC 34.4 32 - 36 g/dL RDW 14.8 11.5 - 15.0 % Platelets 212 150 - 450 X10E9/L MPV 7.9 7 - 12 fL % neutrophils 64.2 % % lymphocytes 25.4 % % monocytes 7.2 % % eosinophils 2.7 % % Basophils 0.5 % Neutrophils Absolute (A) 4.0 1.5 - 6.6 X10E9/L Lymphocytes Absolute 1.6 1.0 - 3.5 X10E9/L Monocytes Absolute 0.5 0 - 0.9 X10E9/L Eosinophils Absolute 0.2 0.0 - 0.4 X10E9/L Basophils Absolute 0.0 0.0 - 0.2 X10E9/L Hemoglobin A1c Collection Time: 11/23/23 5:02 AM Result Value Ref Range Hemoglobin A1C 9.1 (H) 4.4 - 5.6 % Average glucose 214 mg/dL Bedside Glucose *Place/Obtain serum glucose if >500(>600 MRH) per glucometer. Collection Time: 11/23/23 11:15 AM Result Value Ref Range Bedside glucose 175 (H) 65 - 99 mg/dL Aspirate culture includes gram stain Collection Time: 11/23/23 3:45 PM Specimen: Aspirate Atr ABSCESS~GALL BLADDER Result Value Ref Range Specimen Notes REFRIDGERATED FOR HOURS DUE TO BEING MISPLACED IN PATHOLOGY OVERNIGHT FRIDGE INSTEAD OF GIVEN TO MICRO. THERE IS A SECOND CUP FOR PATHOLOGY. Gram Stain Result 0 to 1 WHITE BLOOD CELLS/LPF Gram Stain Result 0 SQUAMOUS EPITHELIAL CELLS/LPF Gram Stain Result FEW GRAM POSITIVE COCCI IN PAIRS AND CHAINS Gram Stain Result FEW GRAM POSITIVE RODS Gram Stain Result RARE YEAST Culture PENDING Bedside Glucose *Place/Obtain serum glucose if >500(>600 MR[facility]) per glucometer. Collection Time: 11/23/23 6:31 PM Result Value Ref Range Bedside glucose 198 (H) 65 - 99 mg/dL Bedside Glucose *Place/Obtain serum glucose if >500(>600 MRH) per glucometer. Collection Time: 11/23/23 9:08 PM Result Value Ref Range Bedside glucose 194 (H) 65 - 99 mg/dL CBC auto differential Collection Time: 11/24/23 6:23 AM Result Value Ref Range White Blood Cells 10.5 4.0 - 11.0 X10E9/L RBC count 4.04 (L) 4.10 - 5.70 X10E12/L Hemoglobin 13.2 13.0 - 17.0 g/dL Hematocrit 39.4 39 - 49 % MCV 97 80 - 100 fL MCH 32.7 27 - 34 pg MCHC 33.6 32 - 36 g/dL RDW 15.2 (H) 11.5 - 15.0 % Platelets 246 150 - 450 X10E9/L MPV 7.6 7 - 12 fL % neutrophils 75.0 % % lymphocytes 15.8 % % monocytes 8.6 % % eosinophils 0.0 % % Basophils 0.6 % Neutrophils Absolute (A) 7.9 (H) 1.5 - 6.6 X10E9/L Lymphocytes Absolute 1.7 1.0 - 3.5 X10E9/L Monocytes Absolute 0.9 0 - 0.9 X10E9/L Eosinophils Absolute 0.0 0.0 - 0.4 X10E9/L Basophils Absolute 0.1 0.0 - 0.2 X10E9/L Comprehensive metabolic panel Collection Time: 11/24/23 6:23 AM Result Value Ref Range Sodium 137 134 - 146 mmol/L Potassium, Bld 4.2 3.5 - 5.0 mmol/L Chloride 106 98 - 109 mmol/L CO2 17 (L) 22 - 32 mmol/L Anion gap 14 5 - 15 mmol/L BUN 13 5 - 27 mg/dL Creatinine 1.29 (H) 0.70 - 1.20 mg/dL Glucose 207 (H) 65 - 99 mg/dL Calcium 8.6 8.5 - 10.5 mg/dL Total Protein 6.7 6.0 - 8.0 g/dL Albumin 2.9 (L) 3.2 - 5.3 g/dL Alkaline Phosphatase 100 39 - 130 U/L AST 32 0 - 41 U/L ALT 27 0 - 40 U/L Total bilirubin 2.2 (H) 0.3 - 1.2 mg/dL eGFR (CKD-EPI)non-race dependent 63 >59 ml/min/1.73sq.m Bedside Glucose *Place/Obtain serum glucose if >500(>600 MRH) per glucometer. Collection Time: 11/24/23 8:54 AM Result Value Ref Range Bedside glucose 213 (H) 65 - 99 mg/dL Bedside Glucose *Place/Obtain serum glucose if >500(>600 MRH) per glucometer. Collection Time: 11/24/23 11:36 AM Result Value Ref Range Bedside glucose 209 (H) 65 - 99 mg/dL Radiology X-ray chest 1 view Result Date: 11/21/2023 Narrative: Chest radiograph dated: 11/21/2023. Reason for study: surgical clearance. Comparison studies: Chest x-ray from 12/05/2021. Technique: Portable upright chest 1 view AP. Findings: Mild cardiomegaly. No willian pulmonary edema. No pneumothorax, significant pleural effusions or focal consolidation. No acute osseous abnormality. IMPRESSION: No acute cardiopulmonary process identified Finalized by German Cardenas MD on 11/21/2023 4:10 PM X-ray abdomen ap 1 view Result Date: 11/20/2023 Narrative: HISTORY: Abdominal pain COMPARISON: CT abdomen and pelvis 11/18/2023 FINDINGS: Multiple supine views of the abdomen were obtained. Nonobstructive bowel gas pattern. Moderate stool burden inthe colon. Vascular calcifications in the pelvis. No acute osseous abnormality. IMPRESSION: * Nonobstructive bowel gas pattern with moderate stool burden. Finalized by Philip Adams MD on 11/20/2023 2:[address] abdomen and pelvis with and without contrast Result Date: 11/19/2023 Narrative: CT ABDOMEN AND PELVIS W WO CONT HISTORY: Generalized abdominal pain COMPARISON: CT abdomen pelvis 06/06/2012 TECHNIQUE: CT images of abdomen and pelvis obtained with and without intravenouscontrast. Automated exposure control was utilized. All CT scans at this facility use dose modulation, iterative reconstruction, and/or weight based dosing when appropriate to reduce radiation dose toas low as reasonably achievable. CONTRAST: Oral: None IV: 100 mL Omnipaque 300 FINDINGS: LOWER CHEST: Bilateral gynecomastia. Evaluation of the lung bases is suboptimal secondary to respiratory motion artifact. LIVER AND BILIARY: Noncirrhotic liver morphology. No suspicious hepatic mass or lesion. T he portal venous system appears patent. There is gallbladder wall thickening and pericholecystic fat stranding. Large volume of gas seen within the gallbladder which appears to be extending to a defect in the wall which closely abuts and likely communicates with the adjacent duodenum. The adjacent D2 segment of duodenum has evidence of wall thickening and surrounding fat stranding. Equivocal fistulous communication (series 4, image 24). PANCREAS: Unremarkable SPLEEN: Unremarkable. ADRENALS: No adrenal mass or lesion. KIDNEYS, URETERS, AND BLADDER: No suspicious renal mass or lesion.. No collecting system dilatation. No renal calculi.. Ureters and bladder are unremarkable. GI TRACT AND PERITO NEUM: The appendix is not well-visualized. Terminal ileum is unremarkable appearing. There is no evidence of bowel obstruction. Large burden of stool in the colon. Inflammatory changes with apparent defect within the wall of the D2 segment of duodenum and adjacent gallbladder. VASCULATURE: Unremarkable LYMPH NODES: No enlarged lymph nodes by size criteria. REPRODUCTIVE ORGANS: Unremarkable MUSCULOSKELETAL: No acute abnormalities. IMPRESSION: * Findings most compatible with choleduodenal fistulawith inflammatory changes about both the D2 segment of the duodenum and adjacent gallbladder. Giventhe degree of inflammatory change, correlate for underlying duodenal ulceration. No evidence of bowel obstruction/gallstone ileus. THIS REPORT CONTAINS A SIGNIFICANT RESULT AND/OR RECOMMENDATION, WHICH REQUIRES THE ATTENTION OF THE LICENSED CAREGIVER RESPONSIBLE FOR THIS PATIENT. THEREFORE, I SPECIFICALLY DESIGNATED THIS REPORT TO BE TELEPHONED BY THE RADIOLOGY DEPARTMENT. FINDINGS WERE INSTRUCTED TO BE CALLED TO THE CLINICAL SERVICE ON 11/19/2023 AT 1620 hours. Approved by Resident Juan Mcmillan DO on 11/19/2023 2:04 PM IMichelet MD have personally reviewed the image(s) and agree with and/or edited the report Finalized by Michelet Alejandro MD on 11/19/2023 4:[address] abdomen and pelvis with and without contrast Result Date: 11/19/2023 Narrative: THIS EXAM WAS PERFORMED AT [facility] CT ABDOMEN AND PELVIS W WO CONT HISTORY: Generalized abdominal pain COMPARISON: CT abdomen pelvis 06/06/2012 TECHNIQUE: CT images of abdomen and pelvis obtained with and without intravenous contrast. Automated exposure control was utilized. All CT scans at this facility use dose modulation, iterative reconstruction, and/or weight based dosing when appropriate to reduce radiation dose to as low as reasonably achievable. CONTRAST: Oral: None IV: 100 mL Omnipaque 300 FINDINGS: LOWER CHEST: Bilateral gynecomastia. Evaluation of the lung bases is suboptimal secondary to respiratory motion artifact. LIVER AND BILIARY: Noncirrhotic liver morphology. No suspicious hepatic mass or lesion. The portal venous system appears patent. There is gallbladder wall thickening and pericholecystic fat stranding. Large volume of gas seen within the gallbladder which appears to be extending to a defect in the wall which closely abuts and likely communicates withthe adjacent duodenum. The adjacent D2 segment of duodenum has evidence of wall thickening and surrounding fat stranding. Equivocal fistulous communication (series 4, image 24). PANCREAS: Unremarkable SPLEEN: Unremarkable. ADRENALS: No adrenal mass or lesion. KIDNEYS, URETERS, AND BLADDER: No suspicious renal mass or lesion.. No collecting system dilatation. No renal calculi.. Ureters and bladder are unremarkable. GI TRACT AND PERITONEUM: The appendix is not well-visualized. Terminal ileum is unremarkable appearing. There is no evidence of bowel obstruction. Large burden of stool in the colon. Inflammatory changes with apparent defect within the wall of the D2 segment of duodenum and adjacent gallbladder. VASCULATURE: Unremarkable LYMPH NODES: No enlarged lymph nodes by size criteria. REPRODUCTIVE ORGANS: Unremarkable MUSCULOSKELETAL: No acute abnormalities. 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 Given the degree of inflammatory change, correlate for underlying duodenal ulceration. No evidence of bowel obstruction/gallstone ileus. THIS REPORT CONTAINS A SIGNIFICANT RESULT AND/OR RECOMMENDATION, WHICH REQUIRES THE ATTENTION OF THE LICENSED CAREGIVER RESPONSIBLEFOR THIS PATIENT. THEREFORE, I SPECIFICALLY DESIGNATED THIS REPORT TO BE TELEPHONED BY THE RADIOLOGY DEPARTMENT. FINDINGS WERE INSTRUCTED TO BE CALLED TO THE CLINICAL SERVICE ON 11/19/2023 AT 1620 hours. Approved by Resident Juan Mcmillan DO on 11/19/2023 2:04 PM IMichelet MD have personally reviewed the image(s) and agree with and/or edited the report Finalized by Michelet Alejandro MD on 11/19/2023 4:20 PM DISCHARGE INSTRUCTION Disposition: Another Hospital Condition: Stable Activity: activity as tolerated Diet: Adult diet NPO; Except medications, Ice chips only >30 minutes were spent on discharging this patient. LONG Rondon 11/24/2023 2:09 PM [facility] Internal Medicine 7AM-7PM (all facilities): EpicChat or page through Vocera. 7PM-7AM ([facility], [facility] Psychiatry and Inpatient Rehab): EpicChat or page, [phone]. 7PM-7AM ([facility], [place], [place] and [facility] Rehab): EpicChat or page through Vocera. LONG Rondon 11/24/23 1411 LONG Rondon 11/24/23 1412 Physician Attestation I, Ermelinda Pretty MD, personally performed a face to face diagnostic evaluation on this patient. I have reviewed the note authored by the advance practice provider including history, review of systems,physical examination,medical decision making and agree with the assessment and plan as written. I have seen and evaluated the patient, I have repeated the salomon portions of the physical exam and concur with the MARI findings. I have reviewed all laboratory findings and imaging reports/films. I agree with the plan as noted. [facility] in [facility] Nurse Note* Ashlyamarjit Posey RN - 11/24/2023 2:03 PM EDT Received call from Becky at [facility] with room A 627 at [facility]. Call report to [phone]. Spoke to Lluvia at [facility] and set up transportation with ETA of 1700. [facility] Note* Ashly Posey RN - 11/24/2023 2:03 PM EDT Received call from Becky at [facility] with room A 627 at [facility]. Call report to [phone]. Spoke to Lluvia at [facility] and set up transportation with ETA of 1700. * Lv Domingo RN - 11/24/2023 11:[address] Cooper spoke to family regarding transferring pt to [facility]. documented in this encounterMidd[facility]own [facility]10-[facility]24 Hospital Discharge instructions* Appointments* Blanca Hassan - 11/24/2023 1:15 PM EDT YOUR SCHEDULED APPOINTMENTS Please make note of this in your schedule as to not miss or call to reschedule. Thank you! DAVION PRITCHARD MD PCP - General Family Medicine [phone] [place] [id number] [address] [facility] [id number] Next Steps: Go on 12/03/2023 Instructions: 11:30 am (arrive at 11:15 am) Pt. should bring the following to appointment; Discharge paperwork Picture ID, Insurance card, co-pay, and all current medications in their bottles. Please provide a 24 hour notice for cancellation. Failure to do so will result in the practice declining to see pt. in the future. If you have insurance copay you must bring with you to the appointment. Please arrive about 15 minutes prior to appointment for check-in/registration. For NEW PATIENT APPOINTMENTS, please arrive 30 minutes early to complete new patient paperwork. For NEW patients, MD will not prescribe detention pain medication. documented in this encounterM[facility]own [facility]10-15-2024 Progress note* Discharge Planning Note - Blanca Hassan - 11/24/2023 1:04 PM EDT DISCHARGE PLANNING NOTE Ref[facility] ([place]urtis: P# ; F# ) [facility] Uro [id number] Progress note* Discharge Planning Note - Amalia Kapoor - 11/24/2023 12:19 PM EDT Images from the original note were not included. DISCHARGE PLANNING NOTE Discharge Planning Assessment Boo Capps Admit Status: Inpatient Meet: Yes Readmission Risk: 13%. Date of Admission: 11/20/2023 GMLOS: 3 days Target Discharge Date: 11/23/2023 Discharge Planning Assessment completed at bedside. Drapery Maker identified self and role to the patient.Patient is agreeable to the assessment and discussion of a safe discharge plan. 11/24/23 1030 Discharge Disposition Discharge Disposition Home with [facility] Information [facility] Patient Information Primary Caregiver Self Support System Immediate family;Friends;Neighbors;Other (Comment) (Pt states he receives services through [facility].) Income Information Income Information Disability Referral To Community Resources Denies needs Discharge Planning Living Arrangements Spouse/significant other Support Systems Family members;garde manager/social services specialist;Other (Comment) ([facility] services) Assistance Needed Patient is independent with ADL's and mobility. Patient sppech is slow and delayed. Patient states he lives with his . He validates that he receives services through [facility] with the following: Aide in the mornings to help him and his to get up and dressed, transport to groceries and appointments, transport to library, transport to events, assistance with cookign and cleaning. 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 He will continue his [facility] services and he would also like home health care. Does the patient need discharge transport arranged? Yes (Will need trips at discharge.) Services Requested Discharge Disposition: Home with home health services Does the patient need discharge transportation arranged?: Yes Transportation Arranged: Other (Requesting [facility] to take him zora e at discharge.) Patient choice offered: Patient declined List Provided: Patient declined Patient Declined: Other (must state reason) (Used [facility] in the past.) Initial DC Assessment Completed: Yes Pharmacy: [facility] PCP: Davion Pritchard Transportation at Time of Discharge: Patient stated he will need [employer] to transport him home as neither he nor his drive. Patient will make her own follow up appointments: no Patient Goals: Goals Return home with Home Health Care (pt-stated) Evaluation of progress towards goal: Patient plans to return home with support of and home health care. PT Recommends: N/A OT Recommends: N/A Plan to prevent readmission: Follow up with Dr. Cooper. Home Health Care for therapy and a nurse for wound checks. Patient does not endorse any questions at this time. Patient Discharge Plan: Home with continued [facility] services. [facility] pending acceptance for RN/PT/OT. Referral tasked to the transition center. Patient will need [facility] to transport him home at time of discharge. Follow up appointments as below: Dr. Cooper in 2-3 weeks with CNP. Kayla Tasked to the transition center. - Amalia Kapoor 11/24/23 12:22 PM [facility]* Lv Domingo RN - 11/24/2023 11:[address] Cooper spoke to family regarding transferring pt to [facility]. [facility] [id number] Plan of care note* Plan of Care - Nidia Estrella RN - 11/23/2023 11:37 PM EDT Problem: Pain Goal: Patient goal is pain score less than 4, able to rest, and participant in treatment plan as appropriate Description: INTERVENTIONS: 1. Encourage patient or legal account retention representative to report early pain and ask for pain medicine when needed 2. Assess pain using appropriate pain scale and include the scale used when documenting 3. Administer analgesics based on type and severity of pain and evaluate response within appropriate time frame 4. Implement non-pharmacological measures as appropriate and evaluate response 5. Consider cultural and social influences on pain and pain management 6. Notify LIP if interventions ineffective or patient reports new pain 7. Monitor vital signs including pulse ox, end-tidal CO2 based on pain intervention 8. Reassess pain per policy 9. Teach patient or legal account retention representative interventions for comforting Outcome: Progressing Note: Evaluation of progress towards goal: ongoing Problem: Knowledge Deficit Goal: Patient/patient account retention representative demonstrates understanding of disease process, treatment plan,medications, and discharge instructions Description: INTERVENTIONS 1. Complete learning assessment and assess knowledge base 2. Provide teaching at level of understanding 3. Provide teaching via preferred learning method(s) Outcome: Progressing Note: Evaluation of progress towards goal: ongoing Problem: Moderate - High Risk Fall Score Description: Cha Fall Score of =/> 25 or indicated by [facility] Assessment Goal: Patient should be free from fall Description: Interventions: 1. [place] to environment 2. Hourly rounds addressing the 4 P's (Pain, Positioning, Possessions, Potty) 3. Clear area of hazards (spills, clutter, electrical cords, unnecessary equipment) 4. Place equipment (bed & TV controls, call light, phone, urinal) within reach 5. Encourage patient to wear glasses and hearing aides as appropriate 6. Maintain bed in lowest position 7. Lock wheels on bed/wheelchair 8. Provide adequate lighting, including night light 9. Assess need for additional bedding, food/fluids, pain med's prior to sleep/routinely 10. Provide gripper slippers or personal non-skid footwear 11. Teach patient and patient account retention representative to maintain environment for safety and engage in all aspects of fall prevention program 12. Remind patient to call for help before getting out of bed 13. Initiate bed/chair/exit alarms supportive devices as appropriate, (chair wedge, no-skid floor mat, raised edge mattress, hip protectors) 14. Locate patient bed assignment for optimal visualization 15. Evaluate and identify Safe Patient Handling Equipment needs 16. Provide supervision when out of bed or chair 17. Utilize gait belt as needed to assist with ambulation 18. Place adaptive equipment (cane, walker) within reach 19. Request patient account retention representative bring adaptive equipment/mobility aids from home or obtain and provide as needed 20. Consult pharmacy regarding effects of med's affecting mobility, cognition, and alternatives 21. Obtain physician order for PT if risk factors associated with mobility are present 22. Obtain physician order for OT as appropriate 23. Utilize diversional activities 24. Educate patient and patient account retention representative how to maintain a safe environment during visitationtimes (notify nurse prior to leaving bedside) 25. Consider appropriateness of medical or non-medical geneticist 26. 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 male with abnormal gallbladder on imaging concerns forcholecysto duodenal fistula. The plan for robotic cholecystectomy was discussed with the patient and family. After a thorough explanation of the risks, benefits, and alternatives the patient agreed to proceed with the operative intervention. Procedure in Detail: The patient was taken to the operating room and placed in supine position. Cardiopulmonary monitoring was initiated. EPC's were placed on the lower extremities bilaterally. Prophylactic antibiotics were administered. General endotracheal anesthesia was administered by the anesthesiology team and found to be adequate. The patient was prepped and draped in the usual sterile fashion. A critical surgical time-out was performed. A Veress needle was advanced into the abdominal cavity at white's point. Drop test was negative. The abdomen was insufflated. The patient tolerated insufflation well. A 8 mm robotic trocar was advanced into the right upper quadrant using Optiview technique. Additional robotic trocars were placed in the right upper quadrant. An 12 mm robotic trocar was inserted in the left upper quadrant. The table was placed in reverse Trendelenburg with patient's right- side up. The robot was brought in and docked. Adhesions were seen between the omentum, gallbladder and liver. Using blunt dissection, the omentumwas slowly from the liver and gallbladder. As I was doing this, purulent fluid was encountered indicating abscess formation. This was suctioned. Fluid was sent for culture. Here, the gallbladder was entered. The gallbladder wall was noted to be gangrenous. I continued to bluntly separate the gallbladder and liver from the omentum. I continued to do so until I reached the infundibulum ofthe gallbladder. Here, fibrotic changes were encountered. I did not not attempt to dissect the cystic duct and artery. I proceeded with subtotal cholecystectomy. I started with a top-down approach, ho wever there was no clear plane between the gallbladder wall and the liver. I therefore entered the gallbladder, incising it with hook electrocautery. The anterior portion of the gallbladder was resected. The posterior wall of the gallbladder was left in place and its mucosa fulgurated with hook elec trocautery. I was unable to identify the cystic duct opening. Due to concerns for cholecystoduodenal fistula preoperatively, I proceeded EGD to ensure that no fistula was present and to rule out any injury to the duodenum during the dissection. The endoscope was advanced into the patient's mouth, esophagus, stomach to the 2nd portion of the duodenum. No evidence of injury or fistula was seen. During my endoscopy, fluid was irrigated in the right upper quadrant. No air bubbles we were noted. Theendoscope was subsequently withdrawn. The right upper quadrant was irrigated and hemostasis assured. The gallbladder was placed in a Endo-Catch bag and removed through the left upper quadrant incision. A 15 Bulgarian Roger drain was positioned in the right upper quadrant via the right lateral site. This was secured to the skin using 3-0 nylon suture.The 12 mm trocar site fascia was closed using 0 Vicryl suture using Alexi-Migue needle. The abdomen was allowed to collapse. All trocars were removed. Local anesthesia was infiltrated. All ports sites were closed with interrupted subcuticular 4-0Monocryl sutures. Steri strips were applied. The patient tolerated the procedure well, was extubated in the operating room, and taken to the PACU in excellent condition. Anahy Cooper MD [facility] [place] [facility]10-14-2024 Attending History and physical note* Anahy Cooper MD - 11/23/2023 2:16 PM EDT HISTORY AND PHYSICAL INTERVAL NOTE: Boo Capps 1960 [id number] H&P reviewed. The patient was examined and there are no changes to the H&P. Anahy Cooper MD Source Note - Anahy Cooper MD - 11/21/2023 10:16 AM EDT Images from the original note were not included. Chief Complaint: Abdominal pain History of Present Illness: Boo Capps is a 63 y.o. male presents to the emergency department with abdominal pain. He has been having issues with the abdominal pain over the last few weeks. The pain has worsened in the last 4-5 days. He reports that the pain occurs diffusely across his abdomen. He notes nausea, deniesany emesis. He was seen by his family physician on 11/04/[address] abdomen and pelvis. This revealed cholecysto duodenal fistula. Due to continued pain and CT findings he was sent over to our ER for further management. He continues to have pain, rates it 4 out of 10. He reports that it is diffuse. Worsened by eating. Notes intermittent diarrhea. He is passing gas. He had a bowel movementyesterday. He wants the pain to stop. Denies any past surgical history. Includes diabetes mellitus,obesity and obstructive sleep apnea. He is a poor historian. He states that his keeps track of his medical issues. He used to work for [employer] , he is now retired. He states that his ambulation is limited due to a bad knee. Denies any prior history of heart attack or stroke. HPI Review of Systems Constitutional: Negative for fever and chills. Respiratory: Negative for shortness of breath. Cardiovascular: Negative for chest pain and palpitations. Gastrointestinal: Positive for nausea and abdominal pain. Negative for vomiting. Genitourinary: Negative for dysuria and difficulty urinating. Skin: Negative for rash and wound. Allergic/Immunologic: Negative for immunocompromised state. Neurological: Negative for weakness and light-headedness. Hematological: Does not bruise/bleed easily. Psychiatric/Behavioral: Negative for behavioral problems and confusion. Past Medical History: Diagnosis Date Diabetes mellitus type 2, controlled ([facility]) Visual impairment History reviewed. No pertinent surgical history. No Known Allergies Current Facility-Administered Medications: acetaminophen (TYLENOL) tablet 650 mg, 650 mg, oral, Q6H PRN, García Fay, BOUNTY HUNTER-FARMWORKER calcium gluconate 3,000 mg in sodium chloride 0.9 % 100 mL IVPB, 3,000 mg, intravenous, PRN, García PATINOrotzer, [employer] H[employer]TER-FARMWORKER calcium gluconate IVPB 2000 mg/100 mL (20 mg/mL premix), 4,000 mg, intravenous, PRN, García Duotzer, BOUNT[employer] H[employer]TER-FARMWORKER calcium gluconate IVPB 2000 mg/100 mL (20 mg/mL premix), 2,000 mg, intravenous, PRN, García Lynnzer, BOUNT[employer] H[employer]TER-FARMWORKER dextrose (GLUTOSE) 40 % gel 15 g, 15 g, oral, PRNGarcíazer, BOUNT[employer] HUNTER-FARMWORKER dextrose 5 % (D5W) infusion, 100 mL/hr, intravenous, Continuous PRNGarcíazer, BOUNT[employer] HUNTER-FARMWORKER dextrose 50 % in water (D50W) 50% solution 25 mL, 25 mL, intravenous, PRN, García Lynnzer, BOUNT[employer] H[employer]TER[employer]FARMWORKER FLUoxetine (PROzac) capsule 20 mg, 20 mg, oral, Daily, García Fay APRN-FARMWORKER, 20 mg at 11/21/23 0849 glucagon HCL injection 1 mg, 1 mg, intramuscular, PRN, García Lynnzer, BOUNT[employer] H[employer]TER[employer]FARMWORKER insulin lispro (HumaLOG) injection 3-18 Units, 3-18 Units, subcutaneous, With meals and nightly, García Fay BOUNT[employer] H[employer]TER-FARMWORKER, 6 Units at 11/21/23 0849 magnesium sulfate IVPB 2000 mg/50 mL in iso-osmotic water (40 mg/mL premix), 2,000 mg, intravenous,PRN, García Fay B[employer] H[employer]TER-FARMWORKER, Stopped at 11/21/23 0935 magnesium sulfate IVPB 4000 mg/100 mL in iso-osmotic water (40 mg/mL premix), 4,000 mg, intravenous, PRN, García Lynnzer, B[employer] H[employer]TER[employer]FARMWORKER metoclopramide (REGLAN) tablet 10 mg, 10 mg, oral, 4x Daily, García Fay BOUNT[employer] HUNTER-FARMWORKER, 10 mg at 11/21/23 0848 metoprolol tartrate (LOPRESSOR) tablet 25 mg, 25 mg, oral, BID, García Fay BOUNT[employer] H[employer]TER-FARMWORKER, 25 mg at 11/21/23 0849 ondansetron (PF) (ZOFRAN) injection 4 mg, 4 mg, intravenous, Q6H PRN, García Lynnzer [employer] H[employer]FARMWORKER potassium chloride (K-TAB,KLOR-CON) CR tablet 30-50 mEq, 30-50 mEq, oral, PRN, 30 mEq at 11/21/23 0735 OR potassium chloride (KAYCIEL) 20 mEq/15 mL solution 30-50 mEq, 30-50 mEq, oral, PRN, García Duotzer, B[employer] H[employer]TER[employer]FARMWORKER sodium phosphate 20 mmol in sodium chloride 0.9 % 250 mL IVPB, 20 mmol, intravenous, PRN OR sodium phosphate 20 mmol in sodium chloride 0.9 % 100 mL IVPB, 20 mmol, intravenous, PRN OR sod phos di, mono-K phos mono (K-PHOS NEUTRAL) 250 mg tablet 2 tablet, 2 tablet, oral, PRN, García D Krotzer,BOUNT[employer] HUNTER-FARMWORKER sodium chloride 0.9 % flush bag, 25 mL, intravenous, PRN, García D Krotzer, BOUNT[employer] H[employer]TER[employer]FARMWORKER sodium chloride 0.9 % infusion, 20 mL/hr, intravenous, Continuous PRN, García D Krotzer, BOUNT[employer] H[employer]TER[employer]FARMWORKER sodium chloride 0.9 % infusion, 75 mL/hr, intravenous, Continuous, García D Krotzer, BOUNT[employer] HUNTER-FARMWORKER, Last Rate: 75 mL/hr at 11/21/23 0236, 75 mL/hr at 11/21/23 0236 topiramate (TOPAMAX) tablet 25 mg, 25 mg, oral, BID, García D Krotzer, BOUNT[employer] HUNTER-FARMWORKER, 25 mg at 11/21/23 0848 Social History Socioeconomic History Marital status: Spouse name: Not on file Number of children: Not on file Years of education: Not on file Highest education level: Not on file Occupational History Not on file Tobacco Use Smoking status: Never Smokeless tobacco: Never Vaping Use Vaping status: Never Used Substance and Sexual Activity Alcohol use: Not Currently Drug use: Never Sexual activity: Defer Other Topics Concern Not on file Social History Narrative Not on file Social Determinants of Health Financial Resource Strain: Not on file Food Insecurity: Food Insecurity Present (11/20/2023) Hunger Screening Food Insecurity - Worry: Never True Food Insecurity - Inability: Sometimes True Transportation Needs: No Transportation Needs (11/20/2023) PRAPARE - Transportation Lack of Transportation (Medical): No Lack of Transportation (Non-Medical): No Physical Activity: Not on file Stress: Not on file Social Connections: Not on file Interpersonal Safety: Not At Risk (11/20/2023) Humiliation, Afraid, Rape, and Kick questionnaire Fear of Current or Ex-Partner: No Emotionally Abused: No Physically Abused: No Sexually Abused: No Housing Instability: Low Risk (11/20/2023) Housing Instability Housing Instability: No History reviewed. No pertinent family history. Physical Exam Vitals reviewed. Constitutional: Appearance: Normal appearance. HENT: Head: Normocephalic and atraumatic. Eyes: Pupils: Pupils are equal, round, and reactive to light. Cardiovascular: Rate and Rhythm: Normal rate. Pulmonary: Effort: Pulmonary effort is normal. Abdominal: General: There is no distension. Palpations: Abdomen is soft. Tenderness: There is abdominal tenderness. Comments: RUQ and epigastric TTP Musculoskeletal: General: No swelling. Skin: General: Skin is warm and dry. Neurological: Mental Status: He is alert and oriented to person, place, and time. Mental status is at baseline. Psychiatric: Mood and Affect: Mood normal. Behavior: Behavior normal. Vital Signs: Blood pressure 117/69, pulse 70, temperature 36.3 C (97.4 F), temperature source Oral,resp. rate 18, height 177.8 cm (5' 10 ), weight 131.3 kg (289 lb 8 oz), SpO2 94%. Respiratory Source: O2 Device: None (Room air) Admission Weight: Weight: 128.6 kg (283 lb 9.6 oz) Labs: Lab Results Component Value Date WBC 6.4 11/21/2023 HGB 13.3 11/21/2023 HCT 39.5 11/21/2023 MCV 96 11/21/2023 PLT 246 11/21/2023 Lab Results Component Value Date GLU 230 (H) 11/21/2023 CALCIUM 8.8 11/21/2023 K 3.5 11/21/2023 CO2 23 11/21/2023 CL 106 11/21/2023 BUN 17 11/21/2023 CREATININE 1.11 11/21/2023 No results found for: AMYLASE Lab Results Component Value Date LIPASE 47 (H) 11/20/2023 Lab Results Component Value Date ALT 20 11/21/2023 AST 20 11/21/2023 ALKPHOS 110 11/21/2023 No results found for: INR , PROTIME Imaging: X-ray abdomen ap 1 view HISTORY: Abdominal pain COMPARISON: CT abdomen and pelvis 11/18/2023 FINDINGS: Multiple supine views of the abdomen were obtained. Nonobstructive bowel gas pattern. Moderate stool burden in the colon. Vascular calcifications in the pelvis. No acute osseous abnormality. IMPRESSION: * Nonobstructive bowel gas pattern with moderate stool burden. 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 No evidence of gallstone ileus. 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 We discussed the potential risks and benefits of the surgery. I gave ample opportunity for the patient to ask questions which I answered to their apparent satisfaction. He seemed to understand and provided consent. Evaluation included: Preparing to see the patient (e.g., review of tests) Obtaining and/or reviewing separately obtained history Performing a medically appropriate examination and/or evaluation Counseling and educating the patient/family/caregiver Referring and communicating with other health critical care physician Anahy Cooper MD [facility] [place] [facility]10-14-2024 History and physical note* Anahy Cooper MD - 11/23/2023 2:16 PM EDT HISTORY AND PHYSICAL INTERVAL NOTE: Boo Capps 1960 [id number] H&P reviewed. The patient was examined and there are no changes to the H&P. Anahy Cooper MD Source Note - Anahy Cooper MD - 11/21/2023 10:16 AM EDT Images from the original note were not included. Chief Complaint: Abdominal pain History of Present Illness: Boo Capps is a 63 y.o. male presents to the emergency department with abdominal pain. He has been having issues with the abdominal pain over the last few weeks. The pain has worsened in the last 4-5 days. He reports that the pain occurs diffusely across his abdomen. He notes nausea, deniesany emesis. He was seen by his family physician on 11/04/[address] abdomen and pelvis. This revealed cholecysto duodenal fistula. Due to continued pain and CT findings he was sent over to our ER for further management. He continues to have pain, rates it 4 out of 10. He reports that it is diffuse. Worsened by eating. Notes intermittent diarrhea. He is passing gas. He had a bowel movementyesterday. He wants the pain to stop. Denies any past surgical history. Includes diabetes mellitus,obesity and obstructive sleep apnea. He is a poor historian. He states that his keeps track of his medical issues. He used to work for [employer] , he is now retired. He states that his ambulation is limited due to a bad knee. Denies any prior history of heart attack or stroke. HPI Review of Systems Constitutional: Negative for fever and chills. Respiratory: Negative for shortness of breath. Cardiovascular: Negative for chest pain and palpitations. Gastrointestinal: Positive for nausea and abdominal pain. Negative for vomiting. Genitourinary: Negative for dysuria and difficulty urinating. Skin: Negative for rash and wound. Allergic/Immunologic: Negative for immunocompromised state. Neurological: Negative for weakness and light-headedness. Hematological: Does not bruise/bleed easily. Psychiatric/Behavioral: Negative for behavioral problems and confusion. Past Medical History: Diagnosis Date Diabetes mellitus type 2, controlled ([facility]) Visual impairment History reviewed. No pertinent surgical history. No Known Allergies Current Facility-Administered Medications: acetaminophen (TYLENOL) tablet 650 mg, 650 mg, oral, Q6H PRN, García Fay BOUNTY HUNTER-MAXI calcium gluconate 3,000 mg in sodium chloride 0.9 % 100 mL IVPB, 3,000 mg, intravenous, PRN, García PATINOrotzer, BOUNT[employer] HUNTER-FARMWORKER calcium gluconate IVPB 2000 mg/100 mL (20 mg/mL premix), 4,000 mg, intravenous, PRNGarcíazer, BOUNT[employer] HUNTER-FARMWORKER calcium gluconate IVPB 2000 mg/100 mL (20 mg/mL premix), 2,000 mg, intravenous, PRNGarcía, BOUNTY HUNTER-FARMWORKER dextrose (GLUTOSE) 40 % gel 15 g, 15 g, oral, PRN, García D Krotzer, BOUNTY HUNTER-FARMWORKER dextrose 5 % (D5W) infusion, 100 mL/hr, intravenous, Continuous PRN, García Fay BOUNT[employer] HUNTER-FARMWORKER dextrose 50 % in water (D50W) 50% solution 25 mL, 25 mL, intravenous, PRN, García Lynnzer, BOUNT[employer] HUNTER-FARMWORKER FLUoxetine (PROzac) capsule 20 mg, 20 mg, oral, Daily, García Fay APRN-FARMWORKER, 20 mg at 11/21/23 0849 glucagon HCL injection 1 mg, 1 mg, intramuscular, PRN, García Fay BOUNT[employer] HUNTER[employer]FARMWORKER insulin lispro (HumaLOG) injection 3-18 Units, 3-18 Units, subcutaneous, With meals and nightly, García Fay BOUNTY HUNTER-FARMWORKER, 6 Units at 11/21/23 0849 magnesium sulfate IVPB 2000 mg/50 mL in iso-osmotic water (40 mg/mL premix), 2,000 mg, intravenous,PRN, García Fay APRN-FARMWORKER, Stopped at 11/21/23 0935 magnesium sulfate IVPB 4000 mg/100 mL in iso-osmotic water (40 mg/mL premix), 4,000 mg, intravenous, PRN, García Lynnzer, BOUNT[employer] HUNTER-FARMWORKER metoclopramide (REGLAN) tablet 10 mg, 10 mg, oral, 4x Daily, García Fay BOUNTY HUNTER-FARMWORKER, 10 mg at 11/21/23 0848 metoprolol tartrate (LOPRESSOR) tablet 25 mg, 25 mg, oral, BID, García Fay BOUNTY HUNTER-FARMWORKER, 25 mg at 11/21/23 0849 ondansetron (PF) (ZOFRAN) injection 4 mg, 4 mg, intravenous, Q6H PRN, García Fay BOUNT[employer] HUNTER-FARMWORKER potassium chloride (K-TAB,KLOR-CON) CR tablet 30-50 mEq, 30-50 mEq, oral, PRN, 30 mEq at 11/21/23 0735 OR potassium chloride (KAYCIEL) 20 mEq/15 mL solution 30-50 mEq, 30-50 mEq, oral, PRN, García Lynnzer, BOUNT[employer] HUNTER-FARMWORKER sodium phosphate 20 mmol in sodium chloride 0.9 % 250 mL IVPB, 20 mmol, intravenous, PRN OR sodium phosphate 20 mmol in sodium chloride 0.9 % 100 mL IVPB, 20 mmol, intravenous, PRN OR sod phos di, mono-K phos mono (K-PHOS NEUTRAL) 250 mg tablet 2 tablet, 2 tablet, oral, PRN, García D Krotzer,BOUNTY HUNTER-FARMWORKER sodium chloride 0.9 % flush bag, 25 mL, intravenous, PRN, García D Krotzer, BOUNT[employer] HUNTER-FARMWORKER sodium chloride 0.9 % infusion, 20 mL/hr, intravenous, Continuous PRN, García D Krotzer, BOUNT[employer] HUNTER-FARMWORKER sodium chloride 0.9 % infusion, 75 mL/hr, intravenous, Continuous, García D Krotzer, BOUNTY HUNTER-FARMWORKER, Last Rate: 75 mL/hr at 11/21/23 0236, 75 mL/hr at 11/21/23 0236 topiramate (TOPAMAX) tablet 25 mg, 25 mg, oral, BID, García D Krotzer, BOUNTY HUNTER-FARMWORKER, 25 mg at 11/21/23 0848 Social History Socioeconomic History Marital status: Spouse name: Not on file Number of children: Not on file Years of education: Not on file Highest education level: Not on file Occupational History Not on file Tobacco Use Smoking status: Never Smokeless tobacco: Never Vaping Use Vaping status: Never Used Substance and Sexual Activity Alcohol use: Not Currently Drug use: Never Sexual activity: Defer Other Topics Concern Not on file Social History Narrative Not on file Social Determinants of Health Financial Resource Strain: Not on file Food Insecurity: Food Insecurity Present (11/20/2023) Hunger Screening Food Insecurity - Worry: Never True Food Insecurity - Inability: Sometimes True Transportation Needs: No Transportation Needs (11/20/2023) PRAPARE - Transportation Lack of Transportation (Medical): No Lack of Transportation (Non-Medical): No Physical Activity: Not on file Stress: Not on file Social Connections: Not on file Interpersonal Safety: Not At Risk (11/20/2023) Humiliation, Afraid, Rape, and Kick questionnaire Fear of Current or Ex-Partner: No Emotionally Abused: No Physically Abused: No Sexually Abused: No Housing Instability: Low Risk (11/20/2023) Housing Instability Housing Instability: No History reviewed. No pertinent family history. Physical Exam Vitals reviewed. Constitutional: Appearance: Normal appearance. HENT: Head: Normocephalic and atraumatic. Eyes: Pupils: Pupils are equal, round, and reactive to light. Cardiovascular: Rate and Rhythm: Normal rate. Pulmonary: Effort: Pulmonary effort is normal. Abdominal: General: There is no distension. Palpations: Abdomen is soft. Tenderness: There is abdominal tenderness. Comments: RUQ and epigastric TTP Musculoskeletal: General: No swelling. Skin: General: Skin is warm and dry. Neurological: Mental Status: He is alert and oriented to person, place, and time. Mental status is at baseline. Psychiatric: Mood and Affect: Mood normal. Behavior: Behavior normal. Vital Signs: Blood pressure 117/69, pulse 70, temperature 36.3 C (97.4 F), temperature source Oral,resp. rate 18, height 177.8 cm (5' 10 ), weight 131.3 kg (289 lb 8 oz), SpO2 94%. Respiratory Source: O2 Device: None (Room air) Admission Weight: Weight: 128.6 kg (283 lb 9.6 oz) Labs: Lab Results Component Value Date WBC 6.4 11/21/2023 HGB 13.3 11/21/2023 HCT 39.5 11/21/2023 MCV 96 11/21/2023 PLT 246 11/21/2023 Lab Results Component Value Date GLU 230 (H) 11/21/2023 CALCIUM 8.8 11/21/2023 K 3.5 11/21/2023 CO2 23 11/21/2023 CL 106 11/21/2023 BUN 17 11/21/2023 CREATININE 1.11 11/21/2023 No results found for: AMYLASE Lab Results Component Value Date LIPASE 47 (H) 11/20/2023 Lab Results Component Value Date ALT 20 11/21/2023 AST 20 11/21/2023 ALKPHOS 110 11/21/2023 No results found for: INR , PROTIME Imaging: X-ray abdomen ap 1 view HISTORY: Abdominal pain COMPARISON: CT abdomen and pelvis 11/18/2023 FINDINGS: Multiple supine views of the abdomen were obtained. Nonobstructive bowel gas pattern. Moderate stool burden in the colon. Vascular calcifications in the pelvis. No acute osseous abnormality. IMPRESSION: * Nonobstructive bowel gas pattern with moderate stool burden. 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 No evidence of gallstone ileus. 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 We discussed the potential risks and benefits of the surgery. I gave ample opportunity for the patient to ask questions which I answered to their apparent satisfaction. He seemed to understand and provided consent. Evaluation included: Preparing to see the patient (e.g., review of tests) Obtaining and/or reviewing separately obtained history Performing a medically appropriate examination and/or evaluation Counseling and educating the patient/family/caregiver Referring and communicating with other health critical care physician Anahy Cooper MD [facility] General Surgery [place] * Jose Maria Block MD - 11/21/2023 3:23 PM EDT Images from the original note were not included. [facility] INTER[facility] [address] [facility] [id number] Hospital Medicine History & Physical Patient: Boo Capps Date of : 1960 Room: /02 PCP: DAVION PRITCHARD MD Admission date: 11/20/2023 10:25 AM Encounter date: 11/21/23 Hospital Day: 2 SUBJECTIVE Boo Capps is a 63 y.o. male who presents to the ED by EMS for evaluation of Abdominal pain. Pt reports difficulty eating with abdominal pain that has been going on for a few months now. Pt states he was advised by his primary care doctor to come to the ED for his pain. Pt describes the pain as constant and sharp. Pt reports his last bowel movement was this morning and denies nausea or vomiting. Pt denies history of ulcers, blood in stool, and admits to drinking water though he states the water does not sit well with him. Pt reports minimal eating with his last meal being oatmeal. He was seen by his family physician on 11/04/[address] abdomen and pelvis. This revealed cholecysto duodenal fistula. Due to continued pain and CT findings he was sent over to our ER for further management. He continues to have pain, rates it 4 out of 10. He reports that it is diffuse. Worsened by eating. Notes intermittent diarrhea. He is passing gas. He had a bowel movement yesterday. Pat ient hyperglycemic with blood glucose greater than [address] Due to CT findings, patient beadmitted to Medicine with general surgery consult for likely surgical intervention. Allergies: Patient has no known allergies. Prior to Admission medications Medication Sig Start Date End Date Taking? Authorizing Provider clonazePAM (KlonoPIN) 2 mg tablet Take 1 tablet (2 mg total) by mouth Three times daily as needed. 09/29/23 Yes Not In System Ref Prov empagliflozin (JARDIANCE) 25 mg tablet tablet Take 1 tablet (25 mg total) by mouth in the morning. 09/07/23 Yes Not In System Ref Prov furosemide (LASIX) 40 mg tablet Take 1 tablet (40 mg total) by mouth daily. 10/16/21 02/21/24 Yes Not In System Ref Prov metoclopramide (REGLAN) 10 mg tablet Take 1 tablet (10 mg total) by mouth in the morning and 1 tablet (10 mg total) at noon and 1 tablet (10 mg total) in the evening and 1 tablet (10 mg total) beforebedtime. Yes Not In System Ref Prov metoprolol tartrate (LOPRESSOR) 25 mg tablet Take 1 tablet (25 mg total) by mouth in the morning and 1 tablet (25 mg total) before bedtime. Yes Not In System Ref Prov SUMAtriptan (IMITREX) 50 mg tablet Take 1 tablet (50 mg total) by mouth once as needed for migraine. 01/29/23 Yes Not In System Ref Prov atorvastatin (LIPITOR) 40 mg tablet Take 1 tablet (40 mg total) by mouth in the morning. Not In System Ref Prov cyclobenzaprine (FLEXERIL) 10 mg tablet Take 1 tablet (10 mg total) by mouth 2 (two) times a day asneeded for muscle spasms. Patient not taking: Reported on 11/20/2023 10/04/23 LONG Simpson FLUoxetine (PROzac) 20 MG tablet Take 1 tablet (20 mg total) by mouth in the morning. Not In SystemRef Prov glipiZIDE (GLUCOTROL) 10 mg tablet Take 1 tablet (10 mg total) by mouth in the morning and 1 tablet(10 mg total) in the evening. Take before meals. Not In System Ref Prov ibuprofen (MOTRIN) 800 mg tablet Take 1 tablet (800 mg total) by mouth every 6 (six) hours as needed for pain. Patient not taking: Reported on 11/20/2023 10/04/23 LONG Simpson metFORMIN (GLUCOPHAGE) 500 mg tablet Take 1 tablet (500 mg total) by mouth in the morning and 1 tablet (500 mg total) in the evening. Take with meals. Not In System Ref Prov methocarbamoL (ROBAXIN) 750 mg tablet Take 1 tablet (750 mg total) by mouth 2 (two) times a day as needed for muscle spasms. Not In System Ref Prov nabumetone (RELAFEN) 500 mg tablet Take 1 tablet (500 mg total) by mouth 2 (two) times a day as needed. Not In System Ref Prov omeprazole (PriLOSEC) 20 mg capsule Take 1 capsule (20 mg total) by mouth every morning before breakfast. Not In System Ref Prov rifAXIMin (XIFAXAN) 550 mg tablet Take 1 tablet (550 mg total) by mouth every 8 (eight) hours. Not In System Ref Prov topiramate (TOPAMAX) 25 mg tablet Take 1 tablet (25 mg total) by mouth in the morning and 1 tablet (25 mg total) before bedtime. Not In System Ref Prov Code Status: Full Code Past Medical History: Patient has a past medical history of Diabetes mellitus type 2, controlled ([facility]) and Visual impairment. Past Surgical History: Patient has no past surgical history on file. Family History: Patient's family history is not on file. Social History: Patient reports that he has never smoked. He has never used smokeless tobacco. He reports that he does not currently use alcohol. He reports that he does not use drugs. Review of Systems Review of Systems Constitutional: Positive for appetite change. Negative for activity change, chills, diaphoresis, fatigue and fever. HENT: Negative for tinnitus and trouble swallowing. Eyes: Negative for visual disturbance. Respiratory: Negative for cough, chest tightness, shortness of breath and wheezing. Cardiovascular: Negative for chest pain, palpitations and leg swelling. Gastrointestinal: Positive for abdominal pain and nausea. Negative for diarrhea and vomiting. Genitourinary: Negative for difficulty urinating. Skin: Negative for rash. Neurological: Negative for dizziness, syncope, speech difficulty, weakness, light-headedness, numbness and headaches. Psychiatric/Behavioral: Negative for sleep disturbance. OBJECTIVE BP 96/61 Pulse 64 Temp 36.6 C (97.9 F) (Oral) Resp 14 Ht 177.8 cm (5' 10 ) Wt 131.3 kg (289 lb 8 oz) SpO2 98% BMI 41.54 kg/m Temp: [36.3 C (97.4 F)-36.7 C (98 F)] 36.6 C (97.9 F) Pulse: [61-71] 64 Resp: [14-18] 14 BP: (95-130)/(53-77) 96/61 FiO2 (%): [21 %] 21 % SpO2: [94 %-100 %] 98 % O2 Device: None (Room air) O2 Flow Rate (L/min): [0 L/min] 0 L/min Intake/Output Summary (Last 24 hours) at 11/21/2023 1523 Last data filed at 11/21/2023 1306 Gross per 24 hour Intake 1841.28 ml Output -- Net 1841.28 ml Physical Exam Physical Exam Vitals and nursing note reviewed. Constitutional: General: He is not in acute distress. HENT: Head: Normocephalic and atraumatic. Right Ear: External ear normal. Left Ear: External ear normal. Nose: Nose normal. Mouth/Throat: Mouth: Mucous membranes are moist. Pharynx: Oropharynx is clear. Eyes: Extraocular Movements: Extraocular movements intact. Pupils: Pupils are equal, round, and reactive to light. Neck: Vascular: No carotid bruit or JVD. Cardiovascular: Rate and Rhythm: Normal rate and regular rhythm. Pulses: Normal pulses. Pulmonary: Effort: Pulmonary effort is normal. Breath sounds: Normal breath sounds. Abdominal: General: Bowel sounds are normal. Palpations: Abdomen is soft. Tenderness: There is abdominal tenderness in the right upper quadrant and epigastric area. There isno right CVA tenderness or left CVA tenderness. Musculoskeletal: Right lower leg: No edema. Left lower leg: No edema. Lymphadenopathy: Cervical: No cervical adenopathy. Skin: General: Skin is warm and dry. Capillary Refill: Capillary refill takes less than 2 seconds. Neurological: General: No focal deficit present. Mental Status: He is alert and oriented to person, place, and time. Psychiatric: Mood and Affect: Mood normal. Behavior: Behavior normal. Thought Content: Thought content normal. Judgment: Judgment normal. Medications Scheduled: FLUoxetine, 20 mg, oral, Daily insulin glargine, 10 Units, subcutaneous, Daily insulin lispro, 3-18 Units, subcutaneous, With meals and nightly metoclopramide, 10 mg, oral, 4x Daily metoprolol tartrate, 25 mg, oral, BID [COMPLETED] piperacillin-tazobactam (ZOSYN) IV, 4.5 g, intravenous, Once FOLLOWED BY piperacillin-tazobactam (ZOSYN) IV, 3.375 g, intravenous, Q8H topiramate, 25 mg, oral, BID Infusions: dextrose 5 % in water, 100 mL/hr sodium chloride 0.9 %, 20 mL/hr sodium chloride 0.9 %, 50 mL/hr, Last Rate: 50 mL/hr (11/21/23 1306) sodium chloride 0.9 %, 50 mL/hr, Last Rate: 50 mL/hr (11/21/23 1306) As Needed: acetaminophen calcium gluconate calcium gluconate calcium gluconate dextrose dextrose 5 % in water dextrose 50 % in water (D50W) glucagon (human recombinant) magnesium sulfate magnesium sulfate ondansetron potassium chloride OR potassium chloride sodium phosphate IV OR sodium phosphate IV - central line OR sod phos di, mono-K phos mono sodium chloride sodium chloride 0.9 % Allergies: Patient has no known allergies. Labs Recent Results (from the past 24 hour(s)) Bedside Glucose *Place/Obtain serum glucose if >500(>600 MR[facility]) per glucometer. Collection Time: 11/20/23 6:04 PM Result Value Ref Range Bedside glucose 191 (H) 65 - 99 mg/dL Bedside Glucose *Place/Obtain serum glucose if >500(>600 [facility]) per glucometer. Collection Time: 11/20/23 8:18 PM Result Value Ref Range Bedside glucose 156 (H) 65 - 99 mg/dL Comprehensive metabolic panel Collection Time: 11/21/23 5:12 AM Result Value Ref Range Sodium 140 134 - 146 mmol/L Potassium, Bld 3.5 3.5 - 5.0 mmol/L Chloride 106 98 - 109 mmol/L CO2 23 22 - 32 mmol/L Anion gap 11 5 - 15 mmol/L BUN 17 5 - 27 mg/dL Creatinine 1.11 0.70 - 1.20 mg/dL Glucose 230 (H) 65 - 99 mg/dL Calcium 8.8 8.5 - 10.5 mg/dL Total Protein 7.3 6.0 - 8.0 g/dL Albumin 3.1 (L) 3.2 - 5.3 g/dL Alkaline Phosphatase 110 39 - 130 U/L AST 20 0 - 41 U/L ALT 20 0 - 40 U/L Total bilirubin 1.3 (H) 0.3 - 1.2 mg/dL eGFR (CKD-EPI)non-race dependent 76 >59 ml/min/1.73sq.m Magnesium Collection Time: 11/21/23 5:12 AM Result Value Ref Range Magnesium 1.9 1.8 - 2.6 mg/dL CBC auto differential Collection Time: 11/21/23 5:12 AM Result Value Ref Range White Blood Cells 6.4 4.0 - 11.0 X10E9/L RBC count 4.13 4.10 - 5.70 X10E12/L Hemoglobin 13.3 13.0 - 17.0 g/dL Hematocrit 39.5 39 - 49 % MCV 96 80 - 100 fL MCH 32.2 27 - 34 pg MCHC 33.7 32 - 36 g/dL RDW 15.0 11.5 - 15.0 % Platelets 246 150 - 450 X10E9/L MPV 8.1 7 - 12 fL % neutrophils 63.2 % % lymphocytes 26.4 % % monocytes 6.8 % % eosinophils 3.0 % % Basophils 0.6 % Neutrophils Absolute (A) 4.0 1.5 - 6.6 X10E9/L Lymphocytes Absolute 1.7 1.0 - 3.5 X10E9/L Monocytes Absolute 0.4 0 - 0.9 X10E9/L Eosinophils Absolute 0.2 0.0 - 0.4 X10E9/L Basophils Absolute 0.0 0.0 - 0.2 X10E9/L Bedside Glucose *Place/Obtain serum glucose if >500(>600 [facility]) per glucometer. Collection Time: 11/21/23 11:32 AM Result Value Ref Range Bedside glucose 189 (H) 65 - 99 mg/dL Radiology X-ray abdomen ap 1 view Result Date: 11/20/2023 Narrative: HISTORY: Abdominal pain COMPARISON: CT abdomen and pelvis 11/18/2023 FINDINGS: Multiple supine views of the abdomen were obtained. Nonobstructive bowel gas pattern. Moderate stool burden inthe colon. Vascular calcifications in the pelvis. No acute osseous abnormality. IMPRESSION: * Nonobstructive bowel gas pattern with moderate stool burden. Finalized by Philip Adams MD on 11/20/2023 2:[address] abdomen and pelvis with and without contrast Result Date: 11/19/2023 Narrative: CT ABDOMEN AND PELVIS W WO CONT HISTORY: Generalized abdominal pain COMPARISON: CT abdomen pelvis 06/06/2012 TECHNIQUE: CT images of abdomen and pelvis obtained with and without intravenouscontrast. Automated exposure control was utilized. All CT scans at this facility use dose modulation, iterative reconstruction, and/or weight based dosing when appropriate to reduce radiation dose toas low as reasonably achievable. CONTRAST: Oral: None IV: 100 mL Omnipaque 300 FINDINGS: LOWER CHEST: Bilateral gynecomastia. Evaluation of the lung bases is suboptimal secondary to respiratory motion artifact. LIVER AND BILIARY: Noncirrhotic liver morphology. No suspicious hepatic mass or lesion. T he portal venous system appears patent. There is gallbladder wall thickening and pericholecystic fat stranding. Large volume of gas seen within the gallbladder which appears to be extending to a defect in the wall which closely abuts and likely communicates with the adjacent duodenum. The adjacent D2 segment of duodenum has evidence of wall thickening and surrounding fat stranding. Equivocal fistulous communication (series 4, image 24). PANCREAS: Unremarkable SPLEEN: Unremarkable. ADRENALS: No adrenal mass or lesion. KIDNEYS, URETERS, AND BLADDER: No suspicious renal mass or lesion.. No collecting system dilatation. No renal calculi.. Ureters and bladder are unremarkable. GI TRACT AND PERITO NEUM: The appendix is not well-visualized. Terminal ileum is unremarkable appearing. There is no evidence of bowel obstruction. Large burden of stool in the colon. Inflammatory changes with apparent defect within the wall of the D2 segment of duodenum and adjacent gallbladder. VASCULATURE: Unremarkable LYMPH NODES: No enlarged lymph nodes by size criteria. REPRODUCTIVE ORGANS: Unremarkable MUSCULOSKELETAL: No acute abnormalities. IMPRESSION: * Findings most compatible with choleduodenal fistulawith inflammatory changes about both the D2 segment of the duodenum and adjacent gallbladder. Giventhe degree of inflammatory change, correlate for underlying duodenal ulceration. No evidence of bowel obstruction/gallstone ileus. THIS REPORT CONTAINS A SIGNIFICANT RESULT AND/OR RECOMMENDATION, WHICH REQUIRES THE ATTENTION OF THE LICENSED CAREGIVER RESPONSIBLE FOR THIS PATIENT. THEREFORE, I SPECIFICALLY DESIGNATED THIS REPORT TO BE TELEPHONED BY THE RADIOLOGY DEPARTMENT. FINDINGS WERE INSTRUCTED TO BE CALLED TO THE CLINICAL SERVICE ON 11/19/2023 AT 1620 hours. Approved by Resident Juan Mcmillan DO on 11/19/2023 2:04 PM IMichelet MD have personally reviewed the image(s) and agree with and/or edited the report Finalized by Michelet Alejandro MD on 11/19/2023 4:[address] abdomen and pelvis with and without contrast Result Date: 11/19/2023 Narrative: THIS EXAM WAS PERFORMED AT [facility] CT ABDOMEN AND PELVIS W WO CONT HISTORY: Generalized abdominal pain COMPARISON: CT abdomen pelvis 06/06/2012 TECHNIQUE: CT images of abdomen and pelvis obtained with and without intravenous contrast. Automated exposure control was utilized. All CT scans at this facility use dose modulation, iterative reconstruction, and/or weight based dosing when appropriate to reduce radiation dose to as low as reasonably achievable. CONTRAST: Oral: None IV: 100 mL Omnipaque 300 FINDINGS: LOWER CHEST: Bilateral gynecomastia. Evaluation of the lung bases is suboptimal secondary to respiratory motion artifact. LIVER AND BILIARY: Noncirrhotic liver morphology. No suspicious hepatic mass or lesion. The portal venous system appears patent. There is gallbladder wall thickening and pericholecystic fat stranding. Large volume of gas seen within the gallbladder which appears to be extending to a defect in the wall which closely abuts and likely communicates withthe adjacent duodenum. The adjacent D2 segment of duodenum has evidence of wall thickening and surrounding fat stranding. Equivocal fistulous communication (series 4, image 24). PANCREAS: Unremarkable SPLEEN: Unremarkable. ADRENALS: No adrenal mass or lesion. KIDNEYS, URETERS, AND BLADDER: No suspicious renal mass or lesion.. No collecting system dilatation. No renal calculi.. Ureters and bladder are unremarkable. GI TRACT AND PERITONEUM: The appendix is not well-visualized. Terminal ileum is unremarkable appearing. There is no evidence of bowel obstruction. Large burden of stool in the colon. Inflammatory changes with apparent defect within the wall of the D2 segment of duodenum and adjacent gallbladder. VASCULATURE: Unremarkable LYMPH NODES: No enlarged lymph nodes by size criteria. REPRODUCTIVE ORGANS: Unremarkable MUSCULOSKELETAL: No acute abnormalities. 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 Given the degree of inflammatory change, correlate for underlying duodenal ulceration. No evidence of bowel obstruction/gallstone ileus. THIS REPORT CONTAINS A SIGNIFICANT RESULT AND/OR RECOMMENDATION, WHICH REQUIRES THE ATTENTION OF THE LICENSED CAREGIVER RESPONSIBLEFOR THIS PATIENT. THEREFORE, I SPECIFICALLY DESIGNATED THIS REPORT TO BE TELEPHONED BY THE RADIOLOGY DEPARTMENT. FINDINGS WERE INSTRUCTED TO BE CALLED TO THE CLINICAL SERVICE ON 11/19/2023 AT 1620 hours. Approved by Resident Juan Mcmillan DO on 11/19/2023 2:04 PM IMichelet MD have personally reviewed the image(s) and agree with and/or edited the report Finalized by Annetta Alejandro MD on 11/19/2023 4:20 PM HOSPITAL PROBLEM LIST Principal Problem: Fistula of gallbladder Active Problems: Gastroesophageal reflux disease without esophagitis Generalized anxiety disorder Obstructive sleep apnea syndrome Stage 3a chronic kidney disease (CKD) ([facility] Type 2 diabetes mellitus with hyperglycemia, without long-term current use of insulin ([facility]) Duodenal fistula Hyperglycemia ASSESSMENT & PLAN Fistula gallbladder/duodenal fistula: General surgery consult. Zosyn. Clear liquid diet. Normal saline at 75 mL/hr. Plan for surgery on 11/23/2023. GERD: Reglan. Generalized anxiety: Supportive care. Continue home Prozac. Obstructive sleep apnea: Home CPAP ordered. CKD 3A: Baseline creatinine 1-1.3. Creatinine 1.11 today. Continue to monitor daily. Diabetes with hyperglycemia: Last A1c 9.2 in July of 2023. Hyperglycemic on admission greater than 300. Monitor blood glucose a.c. and HS cover sliding scale insulin. Hyperglycemia: Improving today. Blood glucose levels between 150 and 250. Add Lantus 10 units dailyto help with glucose control prior to surgery. Chest x-ray ordered for surgical clearance. Last echocardiogram completed on March 10, 2023 shows preserved ejection fraction with an LVEF of55-60%. Patient will likely be l moderate risk for surgical intervention secondary to hyperglycemia and insulin use prior to surgery. Monitor electrolytes daily replace per protocol. Admission orders placed and home medications reconciled. DVT prophylaxis: EPC's and no pharmacological intervention and lieu of surgical procedure upcoming. GI prophylaxis. Protonix PT/OT to evaluate and treat. DC planning: Discharge home in 2-3 days. Appreciate General surgery input. LONG Rea, 11/21/2023 3:23 PM [facility] 7AM-7PM (all facilities): EpicChat or page through [employer]. 7PM-7AM ([facility], [facility] Psychiatry and Inpatient Rehab): EpicChat or page, [phone]. 7PM-7AM ([facility], [place], [place] and [facility] Rehab): EpicChat or page through [employer]. This note is dictated with the use of M*Modal. Please note that this dictation was completed with computer voice recognition software. Quite often unanticipated grammatical, syntax, homophones, and other interpretive errors are inadvertently transcribed by the computer software. Please disregard these errors. Please excuse any errors that have escaped final proofreading. LONG Rea 11/21/23 2685 I have seen and evaluated the patient, and have reviewed the history above and agree. I have repeated the salomon portions of the physical exam and concur with the MARI findings. I have reviewed all laboratory findings and imaging reports/films. I agree with the plan as noted above Dr Jose Marai Block MD, MRCP 11/21/2023 5:45 PM [facility] Plan of care note * Plan of Care - Ailyn Barron RN - 11/23/2023 6:10 AM EDT Problem: Pain Goal: Patient goal is pain score less than 4, able to rest, and participant in treatment plan as appropriate Description: INTERVENTIONS: 1. Encourage patient or legal account retention representative to report early pain and ask for pain medicine when needed 2. Assess pain using appropriate pain scale and include the scale used when documenting 3. Administer analgesics based on type and severity of pain and evaluate response within appropriate time frame 4. Implement non-pharmacological measures as appropriate and evaluate response 5. Consider cultural and social influences on pain and pain management 6. Notify LIP if interventions ineffective or patient reports new pain 7. Monitor vital signs including pulse ox, end-tidal CO2 based on pain intervention 8. Reassess pain per policy 9. Teach patient or legal account retention representative interventions for comforting Outcome: Progressing Note: Evaluation of progress towards goal: ongoing. Problem: Safety Goal: Patient will be injury free during hospitalization Description: INTERVENTIONS: 1. Assess patient's risk for falls and implement fall prevention plan of care per policy 2. Provide and maintain a safe environment 3. Proper use of double Identifiers 4. Medication administration using the 5 rights 5. Hand hygiene 6. Specimens are labeled at the bedside 7. Instruct patient/ patient account retention representative about use of safety devices 8. Include patient/ patient account retention representative in decisions related to safety Outcome: Progressing Note: Evaluation of progress towards goal: ongoing. [facility] [employer] [id number] Plan of care note* Plan of Care - Nico Ellis RN - 11/22/2023 9:23 AM EDT Problem: Pain Goal: Patient goal is pain score less than 4, able to rest, and participant in treatment plan as appropriate Description: INTERVENTIONS: 1. Encourage patient or legal account retention representative to report early pain and ask for pain medicine when needed 2. Assess pain using appropriate pain scale and include the scale used when documenting 3. Administer analgesics based on type and severity of pain and evaluate response within appropriate time frame 4. Implement non-pharmacological measures as appropriate and evaluate response 5. Consider cultural and social influences on pain and pain management 6. Notify LIP if interventions ineffective or patient reports new pain 7. Monitor vital signs including pulse ox, end-tidal CO2 based on pain intervention 8. Reassess pain per policy 9. Teach patient or legal account retention representative interventions for comforting Outcome: Progressing Note: Evaluation of progress towards goal: Pain assessed using appropriate pain scale and include the scale used when documenting. Administered analgesics based on type and severity of pain and evaluate response within appropriate time frame. Implemented non-pharmacological measures as appropriate and evaluate response. Problem: Safety Goal: Patient will be injury free during hospitalization Description: INTERVENTIONS: 1. Assess patient's risk for falls and implement fall prevention plan of care per policy 2. Provide and maintain a safe environment 3. Proper use of double Identifiers 4. Medication administration using the 5 rights 5. Hand hygiene 6. Specimens are labeled at the bedside 7. Instruct patient/ patient account retention representative about use of safety devices 8. Include patient/ patient account retention representative in decisions related to safety Outcome: Progressing Note: Evaluation of progress towards goal: Assessed patient's risk for falls and implemented fall prevention plan of care per protocol. Provided and maintained a safe environment. Used proper use of double Identifiers Problem: Infection Goal: Absence of infection during hospitalization Description: Interventions: 1. Assess and monitor for signs and symptoms of infection 2. Monitor lab/diagnostic results 3. Monitor all insertion sites i.e., indwelling lines, tubes and drains 4. Monitor endotracheal (as able) and nasal secretions for changes in amount and color 5. Administer medications as ordered 6. Instruct and encourage patient and family to use good hand hygiene technique 7. Identify and instruct patient/patient account retention representative in use of appropriate isolation precautionsfor identified infection/symptoms 8. Provide and discuss with patient/patient account retention representative on educational MDRO sheet 9. Encourage and monitor nutritional status daily and consult production foreman if indicated 10. Implement neutropenic guidelines as needed 11. Review exposure to history of communicable disease and recent travel history on admission 12. Encourage annual influenza vaccine 13. Encourage pneumonia vaccine Outcome: Progressing Note: Evaluation of progress towards goal: Isolation precautions followed per protocol. Equipment cleaned between patients. Handwashing protocol followed. Problem: Knowledge Deficit Goal: Patient/patient account retention representative demonstrates understanding of disease process, treatment plan,medications, and discharge instructions Description: INTERVENTIONS 1. Complete learning assessment and assess knowledge base 2. Provide teaching at level of understanding 3. Provide teaching via preferred learning method(s) Outcome: Progressing Note: Evaluation of progress towards goal: Plan of care discussed with pt throughout shift. Updatedon all orders and changes. Verbalizes understanding and all questions/concerns addressed. Problem: Discharge Planning Goal: Discharge to post-acute care, other facility, or home with appropriate resources Description: Patient's goal is: INTERVENTIONS 1. Conduct assessment to determine patient/family and health care team treatment goals, and need for post-acute services based on payer coverage, community resources, and patient preferences, and barriers to discharge 2. Coordinate with Social work, Care Navigation, and Utilization Review to arrange appropriate level of services according to patient's needs based on patient preference and payer coverage in collaboration with the physician and health care team 3. Address psychosocial, clinical, and financial barriers to discharge as identified in assessment in conjunction with the patient/family and health care team 4. Consult appropriate ancillary services (i.e.. PT/OT/ST, etc) as needed 5. Communicate with and update the patient/family, physician, and health care team regarding progress on the discharge plan 6. Identify discharge learning needs (meds, wound care, etc). 7. Arrange for needed discharge transportation as appropriate Outcome: Progressing Note: Evaluation of progress towards goal: Conducted assessment to determine patient/family and health care team treatment goals, and need for post-acute services based on payer coverage, community resources, and patient preferences, and barriers to discharge. Problem: Moderate - High Risk Fall Score Description: Cha Fall Score of =/> 25 or indicated by [facility] Assessment Goal: Patient should be free from fall Description: Interventions: 1. [place] to environment 2. Hourly rounds addressing the 4 P's (Pain, Positioning, Possessions, Potty) 3. Clear area of hazards (spills, clutter, electrical cords, unnecessary equipment) 4. Place equipment (bed & TV controls, call light, phone, urinal) within reach 5. Encourage patient to wear glasses and hearing aides as appropriate 6. Maintain bed in lowest position 7. Lock wheels on bed/wheelchair 8. Provide adequate lighting, including night light 9. Assess need for additional bedding, food/fluids, pain med's prior to sleep/routinely 10. Provide gripper slippers or personal non-skid footwear 11. Teach patient and patient account retention representative to maintain environment for safety and engage in all aspects of fall prevention program 12. Remind patient to call for help before getting out of bed 13. Initiate bed/chair/exit alarms supportive devices as appropriate, (chair wedge, no-skid floor mat, raised edge mattress, hip protectors) 14. Locate patient bed assignment for optimal visualization 15. Evaluate and identify Safe Patient Handling Equipment needs 16. Provide supervision when out of bed or chair 17. Utilize gait belt as needed to assist with ambulation 18. Place adaptive equipment (cane, walker) within reach 19. Request patient account retention representative bring adaptive equipment/mobility aids from home or obtain and provide as needed 20. Consult pharmacy regarding effects of med's affecting mobility, cognition, and alternatives 21. Obtain physician order for PT if risk factors associated with mobility are present 22. Obtain physician order for OT as appropriate 23. Utilize diversional activities 24. Educate patient and patient account retention representative how to maintain a safe environment during visitationtimes (notify nurse prior to leaving bedside) 25. Consider appropriateness of medical or non-medical geneticist 26. Set up voiding schedule as appropriate (every 2 hours) Outcome: Progressing Note: Evaluation of progress towards goal: Preformed hourly rounds addressing the 4 P's (Pain, Positioning, Possessions, Potty). Cleared area of hazards (spills, clutter, electrical cords, unnecessary equipment). [id number] Plan of care note* Plan of Care - Ailyn Barron RN - 11/22/2023 4:18 AM EDT Problem: Pain Goal: Patient goal is pain score less than 4, able to rest, and participant in treatment plan as appropriate Description: INTERVENTIONS: 1. Encourage patient or legal account retention representative to report early pain and ask for pain medicine when needed 2. Assess pain using appropriate pain scale and include the scale used when documenting 3. Administer analgesics based on type and severity of pain and evaluate response within appropriate time frame 4. Implement non-pharmacological measures as appropriate and evaluate response 5. Consider cultural and social influences on pain and pain management 6. Notify LIP if interventions ineffective or patient reports new pain 7. Monitor vital signs including pulse ox, end-tidal CO2 based on pain intervention 8. Reassess pain per policy 9. Teach patient or legal account retention representative interventions for comforting Outcome: Progressing Note: Evaluation of progress towards goal: ongoing. Problem: Safety Goal: Patient will be injury free during hospitalization Description: INTERVENTIONS: 1. Assess patient's risk for falls and implement fall prevention plan of care per policy 2. Provide and maintain a safe environment 3. Proper use of double Identifiers 4. Medication administration using the 5 rights 5. Hand hygiene 6. Specimens are labeled at the bedside 7. Instruct patient/ patient account retention representative about use of safety devices 8. Include patient/ patient account retention representative in decisions related to safety Outcome: Progressing Note: Evaluation of progress towards goal: ongoing. Problem: Infection Goal: Absence of infection during hospitalization Description: Interventions: 1. Assess and monitor for signs and symptoms of infection 2. Monitor lab/diagnostic results 3. Monitor all insertion sites i.e., indwelling lines, tubes and drains 4. Monitor endotracheal (as able) and nasal secretions for changes in amount and color 5. Administer medications as ordered 6. Instruct and encourage patient and family to use good hand hygiene technique 7. Identify and instruct patient/patient account retention representative in use of appropriate isolation precautionsfor identified infection/symptoms 8. Provide and discuss with patient/patient account retention representative on educational MDRO sheet 9. Encourage and monitor nutritional status daily and consult production foreman if indicated 10. Implement neutropenic guidelines as needed 11. Review exposure to history of communicable disease and recent travel history on admission 12. Encourage annual influenza vaccine 13. Encourage pneumonia vaccine Outcome: Progressing Note: Evaluation of progress towards goal: ongoing. [facility] [id number] History and physical note* Jose Maria Block MD - 11/21/2023 3:23 PM EDT Images from the original note were not included. [facility] [address] [facility] [id number] Hospital Medicine History & Physical Patient: Boo Capps Date of : 1960 Room: [facility] PCP: DAVION PRITCHARD MD Admission date: 11/20/2023 10:25 AM Encounter date: 11/21/23 Hospital Day: 2 SUBJECTIVE Boo Capps is a 63 y.o. male who presents to the ED by EMS for evaluation of Abdominal pain. Pt reports difficulty eating with abdominal pain that has been going on for a few months now. Pt states he was advised by his primary care doctor to come to the ED for his pain. Pt describes the pain as constant and sharp. Pt reports his last bowel movement was this morning and denies nausea or vomiting. Pt denies history of ulcers, blood in stool, and admits to drinking water though he states the water does not sit well with him. Pt reports minimal eating with his last meal being oatmeal. He was seen by his family physician on 11/04/[address] abdomen and pelvis. This revealed cholecysto duodenal fistula. Due to continued pain and CT findings he was sent over to our ER for further management. He continues to have pain, rates it 4 out of 10. He reports that it is diffuse. Worsened by eating. Notes intermittent diarrhea. He is passing gas. He had a bowel movement yesterday. Pat ient hyperglycemic with blood glucose greater than [address] to CT findings, patient beadmitted to Medicine with general surgery consult for likely surgical intervention. Allergies: Patient has no known allergies. Prior to Admission medications Medication Sig Start Date End Date Taking? Authorizing Provider clonazePAM (KlonoPIN) 2 mg tablet Take 1 tablet (2 mg total) by mouth Three times daily as needed. 09/29/23 Yes Not In System Ref Prov empagliflozin (JARDIANCE) 25 mg tablet tablet Take 1 tablet (25 mg total) by mouth in the morning. 09/07/23 Yes Not In System Ref Prov furosemide (LASIX) 40 mg tablet Take 1 tablet (40 mg total) by mouth daily. 10/16/21 02/21/24 Yes Not In System Ref Prov metoclopramide (REGLAN) 10 mg tablet Take 1 tablet (10 mg total) by mouth in the morning and 1 tablet (10 mg total) at noon and 1 tablet (10 mg total) in the evening and 1 tablet (10 mg total) beforebedtime. Yes Not In System Ref Prov metoprolol tartrate (LOPRESSOR) 25 mg tablet Take 1 tablet (25 mg total) by mouth in the morning and 1 tablet (25 mg total) before bedtime. Yes Not In System Ref Prov SUMAtriptan (IMITREX) 50 mg tablet Take 1 tablet (50 mg total) by mouth once as needed for migraine. 01/29/23 Yes Not In System Ref Prov atorvastatin (LIPITOR) 40 mg tablet Take 1 tablet (40 mg total) by mouth in the morning. Not In System Ref Prov cyclobenzaprine (FLEXERIL) 10 mg tablet Take 1 tablet (10 mg total) by mouth 2 (two) times a day asneeded for muscle spasms. Patient not taking: Reported on 11/20/2023 10/04/23 [place] FLUoxetine (PROzac) 20 MG tablet Take 1 tablet (20 mg total) by mouth in the morning. Not In SystemRef Prov glipiZIDE (GLUCOTROL) 10 mg tablet Take 1 tablet (10 mg total) by mouth in the morning and 1 tablet(10 mg total) in the evening. Take before meals. Not In System Ref Prov ibuprofen (MOTRIN) 800 mg tablet Take 1 tablet (800 mg total) by mouth every 6 (six) hours as needed for pain. Patient not taking: Reported on 11/20/2023 10/04/23 [place] metFORMIN (GLUCOPHAGE) 500 mg tablet Take 1 tablet (500 mg total) by mouth in the morning and 1 tablet (500 mg total) in the evening. Take with meals. Not In System Ref Prov methocarbamoL (ROBAXIN) 750 mg tablet Take 1 tablet (750 mg total) by mouth 2 (two) times a day as needed for muscle spasms. Not In System Ref Prov nabumetone (RELAFEN) 500 mg tablet Take 1 tablet (500 mg total) by mouth 2 (two) times a day as needed. Not In System Ref Prov omeprazole (PriLOSEC) 20 mg capsule Take 1 capsule (20 mg total) by mouth every morning before breakfast. Not In System Ref Prov rifAXIMin (XIFAXAN) 550 mg tablet Take 1 tablet (550 mg total) by mouth every 8 (eight) hours. Not In System Ref Prov topiramate (TOPAMAX) 25 mg tablet Take 1 tablet (25 mg total) by mouth in the morning and 1 tablet (25 mg total) before bedtime. Not In System Ref Prov Code Status: Full Code Past Medical History: Patient has a past medical history of Diabetes mellitus type 2, controlled ([facility]) and Visual impairment. Past Surgical History: Patient has no past surgical history on file. Family History: Patient's family history is not on file. Social History: Patient reports that he has never smoked. He has never used smokeless tobacco. He reports that he does not currently use alcohol. He reports that he does not use drugs. Review of Systems Review of Systems Constitutional: Positive for appetite change. Negative for activity change, chills, diaphoresis, fatigue and fever. HENT: Negative for tinnitus and trouble swallowing. Eyes: Negative for visual disturbance. Respiratory: Negative for cough, chest tightness, shortness of breath and wheezing. Cardiovascular: Negative for chest pain, palpitations and leg swelling. Gastrointestinal: Positive for abdominal pain and nausea. Negative for diarrhea and vomiting. Genitourinary: Negative for difficulty urinating. Skin: Negative for rash. Neurological: Negative for dizziness, syncope, speech difficulty, weakness, light-headedness, numbness and headaches. Psychiatric/Behavioral: Negative for sleep disturbance. OBJECTIVE BP 96/61 Pulse 64 Temp 36.6 C (97.9 F) (Oral) Resp 14 Ht 177.8 cm (5' 10 ) Wt 131.3 kg (289 lb 8 oz) SpO2 98% BMI 41.54 kg/m Temp: [36.3 C (97.4 F)-36.7 C (98 F)] 36.6 C (97.9 F) Pulse: [61-71] 64 Resp: [14-18] 14 BP: (95-130)/(53-77) 96/61 FiO2 (%): [21 %] 21 % SpO2: [94 %-100 %] 98 % O2 Device: None (Room air) O2 Flow Rate (L/min): [0 L/min] 0 L/min Intake/Output Summary (Last 24 hours) at 11/21/2023 1523 Last data filed at 11/21/2023 1306 Gross per 24 hour Intake 1841.28 ml Output -- Net 1841.28 ml Physical Exam Physical Exam Vitals and nursing note reviewed. Constitutional: General: He is not in acute distress. HENT: Head: Normocephalic and atraumatic. Right Ear: External ear normal. Left Ear: External ear normal. Nose: Nose normal. Mouth/Throat: Mouth: Mucous membranes are moist. Pharynx: Oropharynx is clear. Eyes: Extraocular Movements: Extraocular movements intact. Pupils: Pupils are equal, round, and reactive to light. Neck: Vascular: No carotid bruit or JVD. Cardiovascular: Rate and Rhythm: Normal rate and regular rhythm. Pulses: Normal pulses. Pulmonary: Effort: Pulmonary effort is normal. Breath sounds: Normal breath sounds. Abdominal: General: Bowel sounds are normal. Palpations: Abdomen is soft. Tenderness: There is abdominal tenderness in the right upper quadrant and epigastric area. There isno right CVA tenderness or left CVA tenderness. Musculoskeletal: Right lower leg: No edema. Left lower leg: No edema. Lymphadenopathy: Cervical: No cervical adenopathy. Skin: General: Skin is warm and dry. Capillary Refill: Capillary refill takes less than 2 seconds. Neurological: General: No focal deficit present. Mental Status: He is alert and oriented to person, place, and time. Psychiatric: Mood and Affect: Mood normal. Behavior: Behavior normal. Thought Content: Thought content normal. Judgment: Judgment normal. Medications Scheduled: FLUoxetine, 20 mg, oral, Daily insulin glargine, 10 Units, subcutaneous, Daily insulin lispro, 3-18 Units, subcutaneous, With meals and nightly metoclopramide, 10 mg, oral, 4x Daily metoprolol tartrate, 25 mg, oral, BID [COMPLETED] piperacillin-tazobactam (ZOSYN) IV, 4.5 g, intravenous, Once FOLLOWED BY piperacillin-tazobactam (ZOSYN) IV, 3.375 g, intravenous, Q8H topiramate, 25 mg, oral, BID Infusions: dextrose 5 % in water, 100 mL/hr sodium chloride 0.9 %, 20 mL/hr sodium chloride 0.9 %, 50 mL/hr, Last Rate: 50 mL/hr (11/21/23 1306) sodium chloride 0.9 %, 50 mL/hr, Last Rate: 50 mL/hr (11/21/23 1306) As Needed: acetaminophen calcium gluconate calcium gluconate calcium gluconate dextrose dextrose 5 % in water dextrose 50 % in water (D50W) glucagon (human recombinant) magnesium sulfate magnesium sulfate ondansetron potassium chloride OR potassium chloride sodium phosphate IV OR sodium phosphate IV - central line OR sod phos di, mono-K phos mono sodium chloride sodium chloride 0.9 % Allergies: Patient has no known allergies. Labs Recent Results (from the past 24 hour(s)) Bedside Glucose *Place/Obtain serum glucose if >500(>600 [facility]) per glucometer. Collection Time: 11/20/23 6:04 PM Result Value Ref Range Bedside glucose 191 (H) 65 - 99 mg/dL Bedside Glucose *Place/Obtain serum glucose if >500(>600 [facility]) per glucometer. Collection Time: 11/20/23 8:18 PM Result Value Ref Range Bedside glucose 156 (H) 65 - 99 mg/dL Comprehensive metabolic panel Collection Time: 11/21/23 5:12 AM Result Value Ref Range Sodium 140 134 - 146 mmol/L Potassium, Bld 3.5 3.5 - 5.0 mmol/L Chloride 106 98 - 109 mmol/L CO2 23 22 - 32 mmol/L Anion gap 11 5 - 15 mmol/L BUN 17 5 - 27 mg/dL Creatinine 1.11 0.70 - 1.20 mg/dL Glucose 230 (H) 65 - 99 mg/dL Calcium 8.8 8.5 - 10.5 mg/dL Total Protein 7.3 6.0 - 8.0 g/dL Albumin 3.1 (L) 3.2 - 5.3 g/dL Alkaline Phosphatase 110 39 - 130 U/L AST 20 0 - 41 U/L ALT 20 0 - 40 U/L Total bilirubin 1.3 (H) 0.3 - 1.2 mg/dL eGFR (CKD-EPI)non-race dependent 76 >59 ml/min/1.73sq.m Magnesium Collection Time: 11/21/23 5:12 AM Result Value Ref Range Magnesium 1.9 1.8 - 2.6 mg/dL CBC auto differential Collection Time: 11/21/23 5:12 AM Result Value Ref Range White Blood Cells 6.4 4.0 - 11.0 X10E9/L RBC count 4.13 4.10 - 5.70 X10E12/L Hemoglobin 13.3 13.0 - 17.0 g/dL Hematocrit 39.5 39 - 49 % MCV 96 80 - 100 fL MCH 32.2 27 - 34 pg MCHC 33.7 32 - 36 g/dL RDW 15.0 11.5 - 15.0 % Platelets 246 150 - 450 X10E9/L MPV 8.1 7 - 12 fL % neutrophils 63.2 % % lymphocytes 26.4 % % monocytes 6.8 % % eosinophils 3.0 % % Basophils 0.6 % Neutrophils Absolute (A) 4.0 1.5 - 6.6 X10E9/L Lymphocytes Absolute 1.7 1.0 - 3.5 X10E9/L Monocytes Absolute 0.4 0 - 0.9 X10E9/L Eosinophils Absolute 0.2 0.0 - 0.4 X10E9/L Basophils Absolute 0.0 0.0 - 0.2 X10E9/L Bedside Glucose *Place/Obtain serum glucose if >500(>600 [facility]) per glucometer. Collection Time: 11/21/23 11:32 AM Result Value Ref Range Bedside glucose 189 (H) 65 - 99 mg/dL Radiology X-ray abdomen ap 1 view Result Date: 11/20/2023 Narrative: HISTORY: Abdominal pain COMPARISON: CT abdomen and pelvis 11/18/2023 FINDINGS: Multiple supine views of the abdomen were obtained. Nonobstructive bowel gas pattern. Moderate stool burden inthe colon. Vascular calcifications in the pelvis. No acute osseous abnormality. IMPRESSION: * Nonobstructive bowel gas pattern with moderate stool burden. Finalized by Philip Adams MD on 11/20/2023 2:[address] abdomen and pelvis with and without contrast Result Date: 11/19/2023 Narrative: CT ABDOMEN AND PELVIS W WO CONT HISTORY: Generalized abdominal pain COMPARISON: CT abdomen pelvis 06/06/2012 TECHNIQUE: CT images of abdomen and pelvis obtained with and without intravenouscontrast. Automated exposure control was utilized. All CT scans at this facility use dose modulation, iterative reconstruction, and/or weight based dosing when appropriate to reduce radiation dose toas low as reasonably achievable. CONTRAST: Oral: None IV: 100 mL Omnipaque 300 FINDINGS: LOWER CHEST: Bilateral gynecomastia. Evaluation of the lung bases is suboptimal secondary to respiratory motion artifact. LIVER AND BILIARY: Noncirrhotic liver morphology. No suspicious hepatic mass or lesion. T he portal venous system appears patent. There is gallbladder wall thickening and pericholecystic fat stranding. Large volume of gas seen within the gallbladder which appears to be extending to a defect in the wall which closely abuts and likely communicates with the adjacent duodenum. The adjacent D2 segment of duodenum has evidence of wall thickening and surrounding fat stranding. Equivocal fistulous communication (series 4, image 24). PANCREAS: Unremarkable SPLEEN: Unremarkable. ADRENALS: No adrenal mass or lesion. KIDNEYS, URETERS, AND BLADDER: No suspicious renal mass or lesion.. No collecting system dilatation. No renal calculi.. Ureters and bladder are unremarkable. GI TRACT AND PERITO NEUM: The appendix is not well-visualized. Terminal ileum is unremarkable appearing. There is no evidence of bowel obstruction. Large burden of stool in the colon. Inflammatory changes with apparent defect within the wall of the D2 segment of duodenum and adjacent gallbladder. VASCULATURE: Unremarkable LYMPH NODES: No enlarged lymph nodes by size criteria. REPRODUCTIVE ORGANS: Unremarkable MUSCULOSKELETAL: No acute abnormalities. IMPRESSION: * Findings most compatible with choleduodenal fistulawith inflammatory changes about both the D2 segment of the duodenum and adjacent gallbladder. Giventhe degree of inflammatory change, correlate for underlying duodenal ulceration. No evidence of bowel obstruction/gallstone ileus. THIS REPORT CONTAINS A SIGNIFICANT RESULT AND/OR RECOMMENDATION, WHICH REQUIRES THE ATTENTION OF THE LICENSED CAREGIVER RESPONSIBLE FOR THIS PATIENT. THEREFORE, I SPECIFICALLY DESIGNATED THIS REPORT TO BE TELEPHONED BY THE RADIOLOGY DEPARTMENT. FINDINGS WERE INSTRUCTED TO BE CALLED TO THE CLINICAL SERVICE ON 11/19/2023 AT 1620 hours. Approved by Resident Juan Mcmillan DO on 11/19/2023 2:04 PM IMichelet MD have personally reviewed the image(s) and agree with and/or edited the report Finalized by Michelet Alejandro MD on 11/19/2023 4:[address] abdomen and pelvis with and without contrast Result Date: 11/19/2023 Narrative: THIS EXAM WAS PERFORMED AT [facility] CT ABDOMEN AND PELVIS W WO CONT HISTORY: Generalized abdominal pain COMPARISON: CT abdomen pelvis 06/06/2012 TECHNIQUE: CT images of abdomen and pelvis obtained with and without intravenous contrast. Automated exposure control was utilized. All CT scans at this facility use dose modulation, iterative reconstruction, and/or weight based dosing when appropriate to reduce radiation dose to as low as reasonably achievable. CONTRAST: Oral: None IV: 100 mL Omnipaque 300 FINDINGS: LOWER CHEST: Bilateral gynecomastia. Evaluation of the lung bases is suboptimal secondary to respiratory motion artifact. LIVER AND BILIARY: Noncirrhotic liver morphology. No suspicious hepatic mass or lesion. The portal venous system appears patent. There is gallbladder wall thickening and pericholecystic fat stranding. Large volume of gas seen within the gallbladder which appears to be extending to a defect in the wall which closely abuts and likely communicates withthe adjacent duodenum. The adjacent D2 segment of duodenum has evidence of wall thickening and surrounding fat stranding. Equivocal fistulous communication (series 4, image 24). PANCREAS: Unremarkable SPLEEN: Unremarkable. ADRENALS: No adrenal mass or lesion. KIDNEYS, URETERS, AND BLADDER: No suspicious renal mass or lesion.. No collecting system dilatation. No renal calculi.. Ureters and bladder are unremarkable. GI TRACT AND PERITONEUM: The appendix is not well-visualized. Terminal ileum is unremarkable appearing. There is no evidence of bowel obstruction. Large burden of stool in the colon. Inflammatory changes with apparent defect within the wall of the D2 segment of duodenum and adjacent gallbladder. VASCULATURE: Unremarkable LYMPH NODES: No enlarged lymph nodes by size criteria. REPRODUCTIVE ORGANS: Unremarkable MUSCULOSKELETAL: No acute abnormalities. 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 Given the degree of inflammatory change, correlate for underlying duodenal ulceration. No evidence of bowel obstruction/gallstone ileus. THIS REPORT CONTAINS A SIGNIFICANT RESULT AND/OR RECOMMENDATION, WHICH REQUIRES THE ATTENTION OF THE LICENSED CAREGIVER RESPONSIBLEFOR THIS PATIENT. THEREFORE, I SPECIFICALLY DESIGNATED THIS REPORT TO BE TELEPHONED BY THE RADIOLOGY DEPARTMENT. FINDINGS WERE INSTRUCTED TO BE CALLED TO THE CLINICAL SERVICE ON 11/19/2023 AT 1620 hours. Approved by Resident Juan Mcmillan DO on 11/19/2023 2:04 PM IMichelet MD have personally reviewed the image(s) and agree with and/or edited the report Finalized by Annetta Alejandro MD on 11/19/2023 4:20 PM HOSPITAL PROBLEM LIST Principal Problem: Fistula of gallbladder Active Problems: Gastroesophageal reflux disease without esophagitis Generalized anxiety disorder Obstructive sleep apnea syndrome Stage 3a chronic kidney disease (CKD) ([facility]) Type 2 diabetes mellitus with hyperglycemia, without long-term current use of insulin ([facility]) Duodenal fistula Hyperglycemia ASSESSMENT & PLAN Fistula gallbladder/duodenal fistula: General surgery consult. Zosyn. Clear liquid diet. Normal saline at 75 mL/hr. Plan for surgery on 11/23/2023. GERD: Reglan. Generalized anxiety: Supportive care. Continue home Prozac. Obstructive sleep apnea: Home CPAP ordered. CKD 3A: Baseline creatinine 1-1.3. Creatinine 1.11 today. Continue to monitor daily. Diabetes with hyperglycemia: Last A1c 9.2 in July of 2023. Hyperglycemic on admission greater than 300. Monitor blood glucose a.c. and HS cover sliding scale insulin. Hyperglycemia: Improving today. Blood glucose levels between 150 and 250. Add Lantus 10 units dailyto help with glucose control prior to surgery. Chest x-ray ordered for surgical clearance. Last echocardiogram completed on March 10, 2023 shows preserved ejection fraction with an LVEF of55-60%. Patient will likely be l moderate risk for surgical intervention secondary to hyperglycemia and insulin use prior to surgery. Monitor electrolytes daily replace per protocol. Admission orders placed and home medications reconciled. DVT prophylaxis: EPC's and no pharmacological intervention and lieu of surgical procedure upcoming. GI prophylaxis. Protonix PT/OT to evaluate and treat. DC planning: Discharge home in 2-3 days. Appreciate General surgery input. LONG Rea, 11/21/2023 3:23 PM [facility] Екатерина Lin [facility] Internal Medicine 7AM-7PM (all facilities): EpicChat or page through [employer]. 7PM-7AM ([facility], [facility]): EpicChat or page, [phone]. 7PM-7AM ([place], [place], [place], [place] and [facility] Rehab): EpicChat or page through [employer]. This note is dictated with the use of M*Modal. Please note that this dictation was completed with computer voice recognition software. Quite often unanticipated grammatical, syntax, homophones, and other interpretive errors are inadvertently transcribed by the computer software. Please disregard these errors. Please excuse any errors that have escaped final proofreading. LONG Rea 11/21/23 1324 I have seen and evaluated the patient, and have reviewed the history above and agree. I have repeated the salomon portions of the physical exam and concur with the MARI findings. I have reviewed all laboratory findings and imaging reports/films. I agree with the plan as noted above Dr Jose Maria Block MD, MRCP 11/21/2023 5:45 PM [facility]10-12-2024 Consult note* Anahy Cooper MD - 11/21/2023 10:16 AM EDTAssociated Order(s): IP CONSULT TO GENERAL SURGERY Images from the original note were not included. Chief Complaint: Abdominal pain History of Present Illness: Boo Capps is a 63 y.o. male presents to the emergency department with abdominal pain. He has been having issues with the abdominal pain over the last few weeks. The pain has worsened in the last 4-5 days. He reports that the pain occurs diffusely across his abdomen. He notes nausea, deniesany emesis. He was seen by his family physician on 11/04/[address] abdomen and pelvis. This revealed cholecysto duodenal fistula. Due to continued pain and CT findings he was sent over to our ER for further management. He continues to have pain, rates it 4 out of 10. He reports that it is diffuse. Worsened by eating. Notes intermittent diarrhea. He is passing gas. He had a bowel movementyesterday. He wants the pain to stop. Denies any past surgical history. Includes diabetes mellitus,obesity and obstructive sleep apnea. He is a poor historian. He states that his keeps track of his medical issues. He used to work for [employer] , he is now retired. He states that his ambulation is limited due to a bad knee. Denies any prior history of heart attack or stroke. HPI Review of Systems Constitutional: Negative for fever and chills. Respiratory: Negative for shortness of breath. Cardiovascular: Negative for chest pain and palpitations. Gastrointestinal: Positive for nausea and abdominal pain. Negative for vomiting. Genitourinary: Negative for dysuria and difficulty urinating. Skin: Negative for rash and wound. Allergic/Immunologic: Negative for immunocompromised state. Neurological: Negative for weakness and light-headedness. Hematological: Does not bruise/bleed easily. Psychiatric/Behavioral: Negative for behavioral problems and confusion. Past Medical History: Diagnosis Date Diabetes mellitus type 2, controlled ([facility]) Visual impairment History reviewed. No pertinent surgical history. No Known Allergies Current Facility-Administered Medications: acetaminophen (TYLENOL) tablet 650 mg, 650 mg, oral, Q6H PRN, García Lynnzer, BOUNTY HUNTER-FARMWORKER calcium gluconate 3,000 mg in sodium chloride 0.9 % 100 mL IVPB, 3,000 mg, intravenous, PRN, García PATINOrotzer, BOUNT[employer] H[employer]TER[employer]FARMWORKER calcium gluconate IVPB 2000 mg/100 mL (20 mg/mL premix), 4,000 mg, intravenous, PRN, García Duotzer, BOUNT[employer] H[employer]TER[employer]FARMWORKER calcium gluconate IVPB 2000 mg/100 mL (20 mg/mL premix), 2,000 mg, intravenous, PRN, García Lynnzer, BOUNT[employer] HUNTER-FARMWORKER dextrose (GLUTOSE) 40 % gel 15 g, 15 g, oral, PRN, García Duotzer, BOUNT[employer] HUNTER[employer]FARMWORKER dextrose 5 % (D5W) infusion, 100 mL/hr, intravenous, Continuous PRN, García Lynnzer, BOUNT[employer] H[employer]TER[employer]FARMWORKER dextrose 50 % in water (D50W) 50% solution 25 mL, 25 mL, intravenous, PRN, García Duotzer, BOUNT[employer] HUNTER[employer]FARMWORKER FLUoxetine (PROzac) capsule 20 mg, 20 mg, oral, Daily, García Fay APRN-FARMWORKER, 20 mg at 11/21/23 0849 glucagon HCL injection 1 mg, 1 mg, intramuscular, PRN, García Lynnzer, BOUNT[employer] H[employer]TER[employer]FARMWORKER insulin lispro (HumaLOG) injection 3-18 Units, 3-18 Units, subcutaneous, With meals and nightly, García Fay APRN-FARMWORKER, 6 Units at 11/21/23 0849 magnesium sulfate IVPB 2000 mg/50 mL in iso-osmotic water (40 mg/mL premix), 2,000 mg, intravenous,PRN, García Lynnzer, BOUNT[employer] HUNTER-FARMWORKER, Stopped at 11/21/23 0935 magnesium sulfate IVPB 4000 mg/100 mL in iso-osmotic water (40 mg/mL premix), 4,000 mg, intravenous, PRN, García Duotzer, BOUNT[employer] H[employer]TER[employer]FARMWORKER metoclopramide (REGLAN) tablet 10 mg, 10 mg, oral, 4x Daily, García D Krotzer, BOUNT[employer] HUNTER-FARMWORKER, 10 mg at 11/21/23 0848 metoprolol tartrate (LOPRESSOR) tablet 25 mg, 25 mg, oral, BID, García Duotzer, BOUNT[employer] HUNTER-FARMWORKER, 25 mg at 11/21/23 0849 ondansetron (PF) (ZOFRAN) injection 4 mg, 4 mg, intravenous, Q6H PRN, García Duotzer, BOUNT[employer] HUNTER[employer]FARMWORKER potassium chloride (K-TAB,KLOR-CON) CR tablet 30-50 mEq, 30-50 mEq, oral, PRN, 30 mEq at 11/21/23 0735 OR potassium chloride (KAYCIEL) 20 mEq/15 mL solution 30-50 mEq, 30-50 mEq, oral, PRN, García Duotzer, BOUNT[employer] H[employer]TER[employer]FARMWORKER sodium phosphate 20 mmol in sodium chloride 0.9 % 250 mL IVPB, 20 mmol, intravenous, PRN OR sodium phosphate 20 mmol in sodium chloride 0.9 % 100 mL IVPB, 20 mmol, intravenous, PRN OR sod phos di, mono-K phos mono (K-PHOS NEUTRAL) 250 mg tablet 2 tablet, 2 tablet, oral, PRN, García Chris Krotzer,BOUNTY HUNTER-FARMWORKER sodium chloride 0.9 % flush bag, 25 mL, intravenous, PRN, García Perez Krotzer, BOUNT[employer] HUNTER-FARMWORKER sodium chloride 0.9 % infusion, 20 mL/hr, intravenous, Continuous PRN, García D Krotzer, BOUNT[employer] HUNTER[employer]FARMWORKER sodium chloride 0.9 % infusion, 75 mL/hr, intravenous, Continuous, García Perez Krotzer, BOUNT[employer] HUNTER-FARMWORKER, Last Rate: 75 mL/hr at 11/21/23 0236, 75 mL/hr at 11/21/23 0236 topiramate (TOPAMAX) tablet 25 mg, 25 mg, oral, BID, García Duotzer, BOUNT[employer] HUNTER-FARMWORKER, 25 mg at 11/21/23 0848 Social History Socioeconomic History Marital status: Spouse name: Not on file Number of children: Not on file Years of education: Not on file Highest education level: Not on file Occupational History Not on file Tobacco Use Smoking status: Never Smokeless tobacco: Never Vaping Use Vaping status: Never Used Substance and Sexual Activity Alcohol use: Not Currently Drug use: Never Sexual activity: Defer Other Topics Concern Not on file Social History Narrative Not on file Social Determinants of Health Financial Resource Strain: Not on file Food Insecurity: Food Insecurity Present (11/20/2023) Hunger Screening Food Insecurity - Worry: Never True Food Insecurity - Inability: Sometimes True Transportation Needs: No Transportation Needs (11/20/2023) PRAPARE - Transportation Lack of Transportation (Medical): No Lack of Transportation (Non-Medical): No Physical Activity: Not on file Stress: Not on file Social Connections: Not on file Interpersonal Safety: Not At Risk (11/20/2023) Humiliation, Afraid, Rape, and Kick questionnaire Fear of Current or Ex-Partner: No Emotionally Abused: No Physically Abused: No Sexually Abused: No Housing Instability: Low Risk (11/20/2023) Housing Instability Housing Instability: No History reviewed. No pertinent family history. Physical Exam Vitals reviewed. Constitutional: Appearance: Normal appearance. HENT: Head: Normocephalic and atraumatic. Eyes: Pupils: Pupils are equal, round, and reactive to light. Cardiovascular: Rate and Rhythm: Normal rate. Pulmonary: Effort: Pulmonary effort is normal. Abdominal: General: There is no distension. Palpations: Abdomen is soft. Tenderness: There is abdominal tenderness. Comments: RUQ and epigastric TTP Musculoskeletal: General: No swelling. Skin: General: Skin is warm and dry. Neurological: Mental Status: He is alert and oriented to person, place, and time. Mental status is at baseline. Psychiatric: Mood and Affect: Mood normal. Behavior: Behavior normal. Vital Signs: Blood pressure 117/69, pulse 70, temperature 36.3 C (97.4 F), temperature source Oral,resp. rate 18, height 177.8 cm (5' 10 ), weight 131.3 kg (289 lb 8 oz), SpO2 94%. Respiratory Source: O2 Device: None (Room air) Admission Weight: Weight: 128.6 kg (283 lb 9.6 oz) Labs: Lab Results Component Value Date WBC 6.4 11/21/2023 HGB 13.3 11/21/2023 HCT 39.5 11/21/2023 MCV 96 11/21/2023 PLT 246 11/21/2023 Lab Results Component Value Date GLU 230 (H) 11/21/2023 CALCIUM 8.8 11/21/2023 K 3.5 11/21/2023 CO2 23 11/21/2023 CL 106 11/21/2023 BUN 17 11/21/2023 CREATININE 1.11 11/21/2023 No results found for: AMYLASE Lab Results Component Value Date LIPASE 47 (H) 11/20/2023 Lab Results Component Value Date ALT 20 11/21/2023 AST 20 11/21/2023 ALKPHOS 110 11/21/2023 No results found for: INR , PROTIME Imaging: X-ray abdomen ap 1 view HISTORY: Abdominal pain COMPARISON: CT abdomen and pelvis 11/18/2023 FINDINGS: Multiple supine views of the abdomen were obtained. Nonobstructive bowel gas pattern. Moderate stool burden in the colon. Vascular calcifications in the pelvis. No acute osseous abnormality. IMPRESSION: * Nonobstructive bowel gas pattern with moderate stool burden. 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 No evidence of gallstone ileus. 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 We discussed the potential risks and benefits of the surgery. I gave ample opportunity for the patient to ask questions which I answered to their apparent satisfaction. He seemed to understand and provided consent. Evaluation included: Preparing to see the patient (e.g., review of tests) Obtaining and/or reviewing separately obtained history Performing a medically appropriate examination and/or evaluation Counseling and educating the patient/family/caregiver Referring and communicating with other health critical care physician Anahy Cooper MD [facility] General Surgery [place] [facility]10-12-2024 Consult note* Anahy Cooper MD - 11/21/2023 10:16 AM EDTAssociated Order(s): IP CONSULT TO GENERAL SURGERY Images from the original note were not included. Chief Complaint: Abdominal pain History of Present Illness: Boo Capps is a 63 y.o. male presents to the emergency department with abdominal pain. He has been having issues with the abdominal pain over the last few weeks. The pain has worsened in the last 4-5 days. He reports that the pain occurs diffusely across his abdomen. He notes nausea, deniesany emesis. He was seen by his family physician on 11/04/[address] abdomen and pelvis. This revealed cholecysto duodenal fistula. Due to continued pain and CT findings he was sent over to our ER for further management. He continues to have pain, rates it 4 out of 10. He reports that it is diffuse. Worsened by eating. Notes intermittent diarrhea. He is passing gas. He had a bowel movementyesterday. He wants the pain to stop. Denies any past surgical history. Includes diabetes mellitus,obesity and obstructive sleep apnea. He is a poor historian. He states that his keeps track of his medical issues. He used to work for [employer] , he is now retired. He states that his ambulation is limited due to a bad knee. Denies any prior history of heart attack or stroke. HPI Review of Systems Constitutional: Negative for fever and chills. Respiratory: Negative for shortness of breath. Cardiovascular: Negative for chest pain and palpitations. Gastrointestinal: Positive for nausea and abdominal pain. Negative for vomiting. Genitourinary: Negative for dysuria and difficulty urinating. Skin: Negative for rash and wound. Allergic/Immunologic: Negative for immunocompromised state. Neurological: Negative for weakness and light-headedness. Hematological: Does not bruise/bleed easily. Psychiatric/Behavioral: Negative for behavioral problems and confusion. Past Medical History: Diagnosis Date Diabetes mellitus type 2, controlled ([facility]) Visual impairment History reviewed. No pertinent surgical history. No Known Allergies Current Facility-Administered Medications: acetaminophen (TYLENOL) tablet 650 mg, 650 mg, oral, Q6H PRN, García Duotzer, BOUNT[employer] HUNTER-FARMWORKER calcium gluconate 3,000 mg in sodium chloride 0.9 % 100 mL IVPB, 3,000 mg, intravenous, PRN, García PATINOrotzer, BOUNT[employer] HUNTER-FARMWORKER calcium gluconate IVPB 2000 mg/100 mL (20 mg/mL premix), 4,000 mg, intravenous, PRN, García Perez Krotzer, BOUNT[employer] HUNTER-FARMWORKER calcium gluconate IVPB 2000 mg/100 mL (20 mg/mL premix), 2,000 mg, intravenous, PRN, García Duotzer, BOUNT[employer] HUNTER-FARMWORKER dextrose (GLUTOSE) 40 % gel 15 g, 15 g, oral, PRN, García Duotzer, BOUNTY HUNTER-FARMWORKER dextrose 5 % (D5W) infusion, 100 mL/hr, intravenous, Continuous PRN, García Duotzer, BOUNTY HUNTER-FARMWORKER dextrose 50 % in water (D50W) 50% solution 25 mL, 25 mL, intravenous, PRN, García Duotzer, BOUNTY HUNTER-FARMWORKER FLUoxetine (PROzac) capsule 20 mg, 20 mg, oral, Daily, García Lynnzer, BOUNTY HUNTER-FARMWORKER, 20 mg at 11/21/23 0849 glucagon HCL injection 1 mg, 1 mg, intramuscular, PRN, García Duotzer, BOUNTY HUNTER-FARMWORKER insulin lispro (HumaLOG) injection 3-18 Units, 3-18 Units, subcutaneous, With meals and nightly, García Duotzer, BOUNTY HUNTER-FARMWORKER, 6 Units at 11/21/23 0849 magnesium sulfate IVPB 2000 mg/50 mL in iso-osmotic water (40 mg/mL premix), 2,000 mg, intravenous,PRN, García Duotzer, BOUNTY HUNTER-FARMWORKER, Stopped at 11/21/23 0935 magnesium sulfate IVPB 4000 mg/100 mL in iso-osmotic water (40 mg/mL premix), 4,000 mg, intravenous, PRN, García D Krotzer, BOUNT[employer] HUNTER-FARMWORKER metoclopramide (REGLAN) tablet 10 mg, 10 mg, oral, 4x Daily, García D Krotzer, BOUNT[employer] HUNTER-FARMWORKER, 10 mg at 11/21/23 0848 metoprolol tartrate (LOPRESSOR) tablet 25 mg, 25 mg, oral, BID, García D Krotzer, BOUNT[employer] HUNTER-FARMWORKER, 25 mg at 11/21/23 0849 ondansetron (PF) (ZOFRAN) injection 4 mg, 4 mg, intravenous, Q6H PRN, García D Krotzer, BOUNT[employer] HUNTER-FARMWORKER potassium chloride (K-TAB,KLOR-CON) CR tablet 30-50 mEq, 30-50 mEq, oral, PRN, 30 mEq at 11/21/23 0735 OR potassium chloride (KAYCIEL) 20 mEq/15 mL solution 30-50 mEq, 30-50 mEq, oral, PRN, García D Krotzer, BOUNT[employer] HUNTER-FARMWORKER sodium phosphate 20 mmol in sodium chloride 0.9 % 250 mL IVPB, 20 mmol, intravenous, PRN OR sodium phosphate 20 mmol in sodium chloride 0.9 % 100 mL IVPB, 20 mmol, intravenous, PRN OR sod phos di, mono-K phos mono (K-PHOS NEUTRAL) 250 mg tablet 2 tablet, 2 tablet, oral, PRN, García D Krotzer,BOUNTY HUNTER-FARMWORKER sodium chloride 0.9 % flush bag, 25 mL, intravenous, PRN, García D Krotzer, BOUNT[employer] HUNTER-FARMWORKER sodium chloride 0.9 % infusion, 20 mL/hr, intravenous, Continuous PRN, García D Krotzer, BOUNT[employer] H[employer]TER-FARMWORKER sodium chloride 0.9 % infusion, 75 mL/hr, intravenous, Continuous, García D Krotzer, BOUNT[employer] HUNTER-FARMWORKER, Last Rate: 75 mL/hr at 11/21/23 0236, 75 mL/hr at 11/21/23 0236 topiramate (TOPAMAX) tablet 25 mg, 25 mg, oral, BID, García D Krotzer, BOUNT[employer] HUNTER-FARMWORKER, 25 mg at 11/21/23 0848 Social History Socioeconomic History Marital status: Spouse name: Not on file Number of children: Not on file Years of education: Not on file Highest education level: Not on file Occupational History Not on file Tobacco Use Smoking status: Never Smokeless tobacco: Never Vaping Use Vaping status: Never Used Substance and Sexual Activity Alcohol use: Not Currently Drug use: Never Sexual activity: Defer Other Topics Concern Not on file Social History Narrative Not on file Social Determinants of Health Financial Resource Strain: Not on file Food Insecurity: Food Insecurity Present (11/20/2023) Hunger Screening Food Insecurity - Worry: Never True Food Insecurity - Inability: Sometimes True Transportation Needs: No Transportation Needs (11/20/2023) PRAPARE - Transportation Lack of Transportation (Medical): No Lack of Transportation (Non-Medical): No Physical Activity: Not on file Stress: Not on file Social Connections: Not on file Interpersonal Safety: Not At Risk (11/20/2023) Humiliation, Afraid, Rape, and Kick questionnaire Fear of Current or Ex-Partner: No Emotionally Abused: No Physically Abused: No Sexually Abused: No Housing Instability: Low Risk (11/20/2023) Housing Instability Housing Instability: No History reviewed. No pertinent family history. Physical Exam Vitals reviewed. Constitutional: Appearance: Normal appearance. HENT: Head: Normocephalic and atraumatic. Eyes: Pupils: Pupils are equal, round, and reactive to light. Cardiovascular: Rate and Rhythm: Normal rate. Pulmonary: Effort: Pulmonary effort is normal. Abdominal: General: There is no distension. Palpations: Abdomen is soft. Tenderness: There is abdominal tenderness. Comments: RUQ and epigastric TTP Musculoskeletal: General: No swelling. Skin: General: Skin is warm and dry. Neurological: Mental Status: He is alert and oriented to person, place, and time. Mental status is at baseline. Psychiatric: Mood and Affect: Mood normal. Behavior: Behavior normal. Vital Signs: Blood pressure 117/69, pulse 70, temperature 36.3 C (97.4 F), temperature source Oral,resp. rate 18, height 177.8 cm (5' 10 ), weight 131.3 kg (289 lb 8 oz), SpO2 94%. Respiratory Source: O2 Device: None (Room air) Admission Weight: Weight: 128.6 kg (283 lb 9.6 oz) Labs: Lab Results Component Value Date WBC 6.4 11/21/2023 HGB 13.3 11/21/2023 HCT 39.5 11/21/2023 MCV 96 11/21/2023 PLT 246 11/21/2023 Lab Results Component Value Date GLU 230 (H) 11/21/2023 CALCIUM 8.8 11/21/2023 K 3.5 11/21/2023 CO2 23 11/21/2023 CL 106 11/21/2023 BUN 17 11/21/2023 CREATININE 1.11 11/21/2023 No results found for: AMYLASE Lab Results Component Value Date LIPASE 47 (H) 11/20/2023 Lab Results Component Value Date ALT 20 11/21/2023 AST 20 11/21/2023 ALKPHOS 110 11/21/2023 No results found for: INR , PROTIME Imaging: X-ray abdomen ap 1 view HISTORY: Abdominal pain COMPARISON: CT abdomen and pelvis 11/18/2023 FINDINGS: Multiple supine views of the abdomen were obtained. Nonobstructive bowel gas pattern. Moderate stool burden in the colon. Vascular calcifications in the pelvis. No acute osseous abnormality. IMPRESSION: * Nonobstructive bowel gas pattern with moderate stool burden. 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 No evidence of gallstone ileus. 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 We discussed the potential risks and benefits of the surgery. I gave ample opportunity for the patient to ask questions which I answered to their apparent satisfaction. He seemed to understand and provided consent. Evaluation included: Preparing to see the patient (e.g., review of tests) Obtaining and/or reviewing separately obtained history Performing a medically appropriate examination and/or evaluation Counseling and educating the patient/family/caregiver Referring and communicating with other health critical care physician Anahy Cooper MD [facility] General Surgery [place] [facility] Plan of care note * Plan of Care - Nico Ellis RN - 11/21/2023 9:05 AM EDT Problem: Pain Goal: Patient goal is pain score less than 4, able to rest, and participant in treatment plan as appropriate Description: INTERVENTIONS: 1. Encourage patient or legal account retention representative to report early pain and ask for pain medicine when needed 2. Assess pain using appropriate pain scale and include the scale used when documenting 3. Administer analgesics based on type and severity of pain and evaluate response within appropriate time frame 4. Implement non-pharmacological measures as appropriate and evaluate response 5. Consider cultural and social influences on pain and pain management 6. Notify LIP if interventions ineffective or patient reports new pain 7. Monitor vital signs including pulse ox, end-tidal CO2 based on pain intervention 8. Reassess pain per policy 9. Teach patient or legal account retention representative interventions for comforting Outcome: Progressing Note: Evaluation of progress towards goal: Pain assessed using appropriate pain scale and include the scale used when documenting. Administered analgesics based on type and severity of pain and evaluate response within appropriate time frame. Implemented non-pharmacological measures as appropriate and evaluate response. Problem: Safety Goal: Patient will be injury free during hospitalization Description: INTERVENTIONS: 1. Assess patient's risk for falls and implement fall prevention plan of care per policy 2. Provide and maintain a safe environment 3. Proper use of double Identifiers 4. Medication administration using the 5 rights 5. Hand hygiene 6. Specimens are labeled at the bedside 7. Instruct patient/ patient account retention representative about use of safety devices 8. Include patient/ patient account retention representative in decisions related to safety Outcome: Progressing Note: Evaluation of progress towards goal: Assessed patient's risk for falls and implemented fall prevention plan of care per protocol. Provided and maintained a safe environment. Used proper use of double Identifiers Problem: Infection Goal: Absence of infection during hospitalization Description: Interventions: 1. Assess and monitor for signs and symptoms of infection 2. Monitor lab/diagnostic results 3. Monitor all insertion sites i.e., indwelling lines, tubes and drains 4. Monitor endotracheal (as able) and nasal secretions for changes in amount and color 5. Administer medications as ordered 6. Instruct and encourage patient and family to use good hand hygiene technique 7. Identify and instruct patient/patient account retention representative in use of appropriate isolation precautionsfor identified infection/symptoms 8. Provide and discuss with patient/patient account retention representative on educational MDRO sheet 9. Encourage and monitor nutritional status daily and consult production foreman if indicated 10. Implement neutropenic guidelines as needed 11. Review exposure to history of communicable disease and recent travel history on admission 12. Encourage annual influenza vaccine 13. Encourage pneumonia vaccine Outcome: Progressing Note: Evaluation of progress towards goal: Isolation precautions followed per protocol. Equipment cleaned between patients. Handwashing protocol followed. Problem: Knowledge Deficit Goal: Patient/patient account retention representative demonstrates understanding of disease process, treatment plan,medications, and discharge instructions Description: INTERVENTIONS 1. Complete learning assessment and assess knowledge base 2. Provide teaching at level of understanding 3. Provide teaching via preferred learning method(s) Outcome: Progressing Note: Evaluation of progress towards goal: Plan of care discussed with pt throughout shift. Updatedon all orders and changes. Verbalizes understanding and all questions/concerns addressed. Problem: Discharge Planning Goal: Discharge to post-acute care, other facility, or home with appropriate resources Description: Patient's goal is: INTERVENTIONS 1. Conduct assessment to determine patient/family and health care team treatment goals, and need for post-acute services based on payer coverage, community resources, and patient preferences, and barriers to discharge 2. Coordinate with Social work, Care Navigation, and Utilization Review to arrange appropriate level of services according to patient's needs based on patient preference and payer coverage in collaboration with the physician and health care team 3. Address psychosocial, clinical, and financial barriers to discharge as identified in assessment in conjunction with the patient/family and health care team 4. Consult appropriate ancillary services (i.e.. PT/OT/ST, etc) as needed 5. Communicate with and update the patient/family, physician, and health care team regarding progress on the discharge plan 6. Identify discharge learning needs (meds, wound care, etc). 7. Arrange for needed discharge transportation as appropriate Outcome: Progressing Note: Evaluation of progress towards goal: Conducted assessment to determine patient/family and health care team treatment goals, and need for post-acute services based on payer coverage, community resources, and patient preferences, and barriers to discharge. Problem: Moderate - High Risk Fall Score Description: Cha Fall Score of =/> 25 or indicated by [facility] Assessment Goal: Patient should be free from fall Description: Interventions: 1. [place] to environment 2. Hourly rounds addressing the 4 P's (Pain, Positioning, Possessions, Potty) 3. Clear area of hazards (spills, clutter, electrical cords, unnecessary equipment) 4. Place equipment (bed & TV controls, call light, phone, urinal) within reach 5. Encourage patient to wear glasses and hearing aides as appropriate 6. Maintain bed in lowest position 7. Lock wheels on bed/wheelchair 8. Provide adequate lighting, including night light 9. Assess need for additional bedding, food/fluids, pain med's prior to sleep/routinely 10. Provide gripper slippers or personal non-skid footwear 11. Teach patient and patient account retention representative to maintain environment for safety and engage in all aspects of fall prevention program 12. Remind patient to call for help before getting out of bed 13. Initiate bed/chair/exit alarms supportive devices as appropriate, (chair wedge, no-skid floor mat, raised edge mattress, hip protectors) 14. Locate patient bed assignment for optimal visualization 15. Evaluate and identify Safe Patient Handling Equipment needs 16. Provide supervision when out of bed or chair 17. Utilize gait belt as needed to assist with ambulation 18. Place adaptive equipment (cane, walker) within reach 19. Request patient account retention representative bring adaptive equipment/mobility aids from home or obtain and provide as needed 20. Consult pharmacy regarding effects of med's affecting mobility, cognition, and alternatives 21. Obtain physician order for PT if risk factors associated with mobility are present 22. Obtain physician order for OT as appropriate 23. Utilize diversional activities 24. Educate patient and patient account retention representative how to maintain a safe environment during visitationtimes (notify nurse prior to leaving bedside) 25. Consider appropriateness of medical or non-medical geneticist 26. Set up voiding schedule as appropriate (every 2 hours) Outcome: Progressing Note: Evaluation of progress towards goal: Preformed hourly rounds addressing the 4 P's (Pain, Positioning, Possessions, Potty). Cleared area of hazards (spills, clutter, electrical cords, unnecessary equipment). [facility] [employer] [id number] Plan of care note* Plan of Care - Ailyn Barron RN - 11/21/2023 1:08 AM EDT Problem: Pain Goal: Patient goal is pain score less than 4, able to rest, and participant in treatment plan as appropriate Description: INTERVENTIONS: 1. Encourage patient or legal account retention representative to report early pain and ask for pain medicine when needed 2. Assess pain using appropriate pain scale and include the scale used when documenting 3. Administer analgesics based on type and severity of pain and evaluate response within appropriate time frame 4. Implement non-pharmacological measures as appropriate and evaluate response 5. Consider cultural and social influences on pain and pain management 6. Notify LIP if interventions ineffective or patient reports new pain 7. Monitor vital signs including pulse ox, end-tidal CO2 based on pain intervention 8. Reassess pain per policy 9. Teach patient or legal account retention representative interventions for comforting Outcome: Progressing Note: Evaluation of progress towards goal: ongoing. Problem: Safety Goal: Patient will be injury free during hospitalization Description: INTERVENTIONS: 1. Assess patient's risk for falls and implement fall prevention plan of care per policy 2. Provide and maintain a safe environment 3. Proper use of double Identifiers 4. Medication administration using the 5 rights 5. Hand hygiene 6. Specimens are labeled at the bedside 7. Instruct patient/ patient account retention representative about use of safety devices 8. Include patient/ patient account retention representative in decisions related to safety Outcome: Progressing Note: Evaluation of progress towards goal: ongoing. [facility] [employer] [id number] Plan of care note* Plan of Care - Miranda Rosa RN - 11/20/2023 6:36 PM EDT Problem: Pain Goal: Patient goal is pain score less than 4, able to rest, and participant in treatment plan as appropriate Description: INTERVENTIONS: 1. Encourage patient or legal account retention representative to report early pain and ask for pain medicine when needed 2. Assess pain using appropriate pain scale and include the scale used when documenting 3. Administer analgesics based on type and severity of pain and evaluate response within appropriate time frame 4. Implement non-pharmacological measures as appropriate and evaluate response 5. Consider cultural and social influences on pain and pain management 6. Notify LIP if interventions ineffective or patient reports new pain 7. Monitor vital signs including pulse ox, end-tidal CO2 based on pain intervention 8. Reassess pain per policy 9. Teach patient or legal account retention representative interventions for comforting Outcome: Progressing Note: Evaluation of progress towards goal: Pt able to report pain according to 0/10 pain scale. Medicating patient for pain per orders. Problem: Safety Goal: Patient will be injury free during hospitalization Description: INTERVENTIONS: 1. Assess patient's risk for falls and implement fall prevention plan of care per policy 2. Provide and maintain a safe environment 3. Proper use of double Identifiers 4. Medication administration using the 5 rights 5. Hand hygiene 6. Specimens are labeled at the bedside 7. Instruct patient/ patient account retention representative about use of safety devices 8. Include patient/ patient account retention representative in decisions related to safety Outcome: Progressing Note: Evaluation of progress towards goal: Pt's risk for falls assessed and fall prevention implemented as needed, safe environment provided and maintained, hand hygiene completed. Pt's risk for falls assessed and fall prevention implemented as needed, safe environment provided and maintained, handhygiene completed. Problem: Knowledge Deficit Goal: Patient/patient account retention representative demonstrates understanding of disease process, treatment plan,medications, and discharge instructions Description: INTERVENTIONS 1. Complete learning assessment and assess knowledge base 2. Provide teaching at level of understanding 3. Provide teaching via preferred learning method(s) Outcome: Progressing Note: Evaluation of progress towards goal: POC discussed with patient. Questions answered PRN. [facility]10-11-2024 Procedure note* ED Procedure Note - Dileep Mtz DO - 11/20/2023 3:42 PM EDTAssociated Order(s): Critical Care Procedure Critical Care Performed by: Dileep Mtz DO Authorized by: Dileep Mtz DO Critical care provider statement: Critical care time (minutes): 35 Critical care start time: arrival to the ED. Critical care end time: 11/20/2023 3:42 PM Critical care time was exclusive of: Separately billable procedures and treating other patients Critical care was necessary to treat or prevent imminent or life-threatening deterioration of the following conditions: Endocrine crisis (and GI complications) Critical care was time spent personally by me on the following activities: Blood draw for specimens, development of treatment plan with patient or surrogate, discussions with consultants, discussionswith primary provider, evaluation of patient's response to treatment, examination of patient, interpretation of cardiac output measurements, obtaining history from patient or surrogate, ordering and performing treatments and interventions, ordering and review of laboratory studies, ordering and review of radiographic studies, pulse oximetry, re-evaluation of patient's condition and review of old charts Care discussed with: admitting provider Comments: And general surgeon as consultation. Dileep Mtz DO 11/20/23 1542 [facility]10-11-2024 Emergency department Triage note* Kami Tovar RN - 11/20/2023 10:48 AM EDT Pt states he has had abd discomfort and is worried about bowel obstruction/inflammation. Pt states he was sent here by REZA Pritchard. Pt states he had a normal BM today. [facility]10-11-2024 Emergency department Note* Kami Tovar RN - 11/20/2023 10:48 AM EDT Pt states he has had abd discomfort and is worried about bowel obstruction/inflammation. Pt states he was sent here by REZA Pritchard. Pt states he had a normal BM today. * Dileep Mtz DO - 11/20/2023 10:25 AM EDT Images from the original note were not included. History No chief complaint on file. Initial evaluation performed at 10:[address] Mtz. Patient is a 63 y.o. male who presents to the ED by EMS for evaluation of Abdominal pain. Pt reports difficulty eating with abdominal pain that has been going on for a few months now. Pt states he was advised by his primary care doctor to come to the ED for his pain. Pt describes the pain as constant and sharp. Pt reports his last bowel movement was this morning and denies nausea or vomiting. Pt denies history of ulcers, blood in stool, and admits to drinking water though he states the water does not sit well with him. Pt reports minimal eating with his last meal being oatmeal. Pt reports no other concerns at this time. History provided by: Patient site interpreter used?: No Problem List Items Addressed This Visit None Past Medical History: Diagnosis Date Diabetes mellitus type 2, controlled ([facility]) No past surgical history on file. Travel Screening Question Response Have you been in contact with someone who was sick? No / Unsure Do you have any of the following new or worsening symptoms? None of these Have you traveled internationally or domestically in the last month? No Travel History Travel since 10/21/23 No documented travel since 10/21/23 No family history on file. Social History Substance and Sexual Activity Drug Use Never Social History Tobacco Use Smoking status: Never Smokeless tobacco: Never Vaping Use Vaping status: Never Used Substance Use Topics Alcohol use: Not Currently Drug use: Never Review of Systems Gastrointestinal: Positive for abdominal pain. Negative for blood in stool, nausea and vomiting. Physical Exam ED Triage Vitals Temp Pulse Resp BP SpO2 -- -- -- -- -- Temp src Heart Rate Source Patient Position BP Location FiO2 (%) -- -- -- -- -- There were no vitals filed for this visit. Physical Exam Vitals and nursing note reviewed. Constitutional: Appearance: He is obese. HENT: Head: Normocephalic and atraumatic. Right Ear: External ear normal. Left Ear: External ear normal. Nose: Nose normal. No congestion. Mouth/Throat: Mouth: Mucous membranes are dry. Pharynx: Oropharynx is clear. Eyes: Extraocular Movements: Extraocular movements intact. Conjunctiva/sclera: Conjunctivae normal. Cardiovascular: Rate and Rhythm: Normal rate and regular rhythm. Pulses: Normal pulses. Heart sounds: Normal heart sounds. Pulmonary: Effort: Pulmonary effort is normal. Breath sounds: Normal breath sounds. Abdominal: General: Abdomen is flat. Palpations: Abdomen is soft. Tenderness: There is no guarding or rebound. Musculoskeletal: General: No swelling. Normal range of motion. Cervical back: Normal range of motion and neck supple. Skin: General: Skin is warm and dry. Neurological: General: No focal deficit present. Mental Status: He is alert and oriented to person, place, and time. Psychiatric: Mood and Affect: Mood normal. Behavior: Behavior normal. Thought Content: Thought content does not include homicidal or suicidal ideation. Comments: Pt indicated he may be lacking food at home due to financial difficulties. Procedure Procedures Re-Evaluation 1.[address] Mtz spoke with pt on plan of care when the stated her had a CAT scan where theresults warranted coming to the ED, this was yesterday. 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 Mtz. Chart Reviewed. Date: Chief Complaint: Abdominal Pain Differential Diagnosis includes but is not limited to: Peptic ulcer disease, Gastroenitis, pancreatitis, UT. Plan of Care: ECG, CMP, CBC, Lipase Labs notable for: Lipase 47, % O2 sat 42.0, Portable HCO3 29.2, base excess 3.0, PO2 venous, Alkaline Phosphatase, Total Protein 8.1, glucose 361, Creatinine 1.24. Imaging was independently viewed by Dr. Mtz and is notable for Nonobstructive bowel gas patternwith moderate stool burden. However, pending official radiologist read. Dr. Mtz ( Emergency Medicine) spoke with Dr. Cooper (General Surgery) on pt plan of care. Dr. Cooper plans to operate once the pt is stable and wants the pt admitted here and started on Zosyn. Amount and/or Complexity of Data Reviewed Labs: ordered. ECG/medicine tests: ordered. Risk OTC drugs. Prescription drug management. RESULTS Labs: Labs Reviewed COMPREHENSIVE METABOLIC PANEL - Abnormal; Notable for the following components: Result Value Creatinine 1.24 (*) Glucose 361 (*) Total Protein 8.1 (*) Alkaline Phosphatase 131 (*) All other components within normal limits LIPASE - Abnormal; Notable for the following components: Lipase 47 (*) All other components within normal limits BLOOD GAS, VENOUS - Abnormal; Notable for the following components: PO2, Venous 25 (*) Base,Excess 3.0 (*) Portable HCO3 29.2 (*) % O2 Sat 42.0 (*) All other components within normal limits CBC WITH AUTO DIFFERENTIAL BLOOD GAS, VENOUS ACETONE,(BETAHYDROXYBUTYRATE, KETONE) QUANTITATIVE SERUM Radiology: CT abdomen and pelvis with and without contrast Result Date: 11/19/2023 Narrative: CT ABDOMEN AND PELVIS W WO CONT HISTORY: Generalized abdominal pain COMPARISON: CT abdomen pelvis 06/06/2012 TECHNIQUE: CT images of abdomen and pelvis obtained with and without intravenouscontrast. Automated exposure control was utilized. All CT scans at this facility use dose modulation, iterative reconstruction, and/or weight based dosing when appropriate to reduce radiation dose toas low as reasonably achievable. CONTRAST: Oral: None IV: 100 mL Omnipaque 300 FINDINGS: LOWER CHEST: Bilateral gynecomastia. Evaluation of the lung bases is suboptimal secondary to respiratory motion artifact. LIVER AND BILIARY: Noncirrhotic liver morphology. No suspicious hepatic mass or lesion. T he portal venous system appears patent. There is gallbladder wall thickening and pericholecystic fat stranding. Large volume of gas seen within the gallbladder which appears to be extending to a defect in the wall which closely abuts and likely communicates with the adjacent duodenum. The adjacent D2 segment of duodenum has evidence of wall thickening and surrounding fat stranding. Equivocal fistulous communication (series 4, image 24). PANCREAS: Unremarkable SPLEEN: Unremarkable. ADRENALS: No adrenal mass or lesion. KIDNEYS, URETERS, AND BLADDER: No suspicious renal mass or lesion.. No collecting system dilatation. No renal calculi.. Ureters and bladder are unremarkable. GI TRACT AND PERITO NEUM: The appendix is not well-visualized. Terminal ileum is unremarkable appearing. There is no evidence of bowel obstruction. Large burden of stool in the colon. Inflammatory changes with apparent defect within the wall of the D2 segment of duodenum and adjacent gallbladder. VASCULATURE: Unremarkable LYMPH NODES: No enlarged lymph nodes by size criteria. REPRODUCTIVE ORGANS: Unremarkable MUSCULOSKELETAL: No acute abnormalities. IMPRESSION: * Findings most compatible with choleduodenal fistulawith inflammatory changes about both the D2 segment of the duodenum and adjacent gallbladder. Giventhe degree of inflammatory change, correlate for underlying duodenal ulceration. No evidence of bowel obstruction/gallstone ileus. THIS REPORT CONTAINS A SIGNIFICANT RESULT AND/OR RECOMMENDATION, WHICH REQUIRES THE ATTENTION OF THE LICENSED CAREGIVER RESPONSIBLE FOR THIS PATIENT. THEREFORE, I SPECIFICALLY DESIGNATED THIS REPORT TO BE TELEPHONED BY THE RADIOLOGY DEPARTMENT. FINDINGS WERE INSTRUCTED TO BE CALLED TO THE CLINICAL SERVICE ON 11/19/2023 AT 1620 hours. Approved by Resident Juan Mcmillan DO on 11/19/2023 2:04 PM IMichelet MD have personally reviewed the image(s) and agree with and/or edited the report Finalized by Michelet Alejandro MD on 11/19/2023 4:[address] abdomen and pelvis with and without contrast Result Date: 11/19/2023 Narrative: [facility]EL[facility] W WO CONT HISTORY: Generalized abdominal pain COMPARISON: CT abdomen pelvis 06/06/2012 TECHNIQUE: CT images of abdomen and pelvis obtained with and without intravenous contrast. Automated exposure control was utilized. All CT scans at this facility use dose modulation, iterative reconstruction, and/or weight based dosing when appropriate to reduce radiation dose to as low as reasonably achievable. CONTRAST: Oral: None IV: 100 mL Omnipaque 300 FINDINGS: LOWER CHEST: Bilateral gynecomastia. Evaluation of the lung bases is suboptimal secondary to respiratory motion artifact. LIVER AND BILIARY: Noncirrhotic liver morphology. No suspicious hepatic mass or lesion. The portal venous system appears patent. There is gallbladder wall thickening and pericholecystic fat stranding. Large volume of gas seen within the gallbladder which appears to be extending to a defect in the wall which closely abuts and likely communicates withthe adjacent duodenum. The adjacent D2 segment of duodenum has evidence of wall thickening and surrounding fat stranding. Equivocal fistulous communication (series 4, image 24). PANCREAS: Unremarkable SPLEEN: Unremarkable. ADRENALS: No adrenal mass or lesion. KIDNEYS, URETERS, AND BLADDER: No suspicious renal mass or lesion.. No collecting system dilatation. No renal calculi.. Ureters and bladder are unremarkable. GI TRACT AND PERITONEUM: The appendix is not well-visualized. Terminal ileum is unremarkable appearing. There is no evidence of bowel obstruction. Large burden of stool in the colon. Inflammatory changes with apparent defect within the wall of the D2 segment of duodenum and adjacent gallbladder. VASCULATURE: Unremarkable LYMPH NODES: No enlarged lymph nodes by size criteria. REPRODUCTIVE ORGANS: Unremarkable MUSCULOSKELETAL: No acute abnormalities. 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 Given the degree of inflammatory change, correlate for underlying duodenal ulceration. No evidence of bowel obstruction/gallstone ileus. THIS REPORT CONTAINS A SIGNIFICANT RESULT AND/OR RECOMMENDATION, WHICH REQUIRES THE ATTENTION OF THE LICENSED CAREGIVER RESPONSIBLEFOR THIS PATIENT. THEREFORE, I SPECIFICALLY DESIGNATED THIS REPORT TO BE TELEPHONED BY THE RADIOLOGY DEPARTMENT. FINDINGS WERE INSTRUCTED TO BE CALLED TO THE CLINICAL SERVICE ON 11/19/2023 AT 1620 hours. Approved by Resident Juan Mcmillan DO on 11/19/2023 2:04 PM IMichelet MD have personally reviewed the image(s) and agree with and/or edited the report Finalized by Annetta Alejandro MD on 11/19/2023 4:20 PM NURSING NOTES AND VITALS REVIEWED The nursing notes within the ED encounter and vital signs as below have been reviewed. BP 96/60 Pulse 69 Temp 36.6 C (97.9 F) (Oral) Resp 17 Ht 177.8 cm (5' 10 ) Wt 128.6 kg (283 lb 9.6 oz) SpO2 97% BMI 40.69 kg/m PROGRESS NOTES The plan of care has been discussed with patient including today s results, in addition to providing specific details regarding counseling pertaining to the diagnosis and prognosis. All questions were answered at this time and they are agreeable with the plan ADDITIONAL PROVIDER NOTES At this time the patient has objective evidence of an acute process requiring hospitalization or inpatient management. Medications sodium chloride 0.9 % flush 3 mL (has no administration in time range) piperacillin-tazobactam (ZOSYN) IVPB 4.5 g/100 mL in iso-osmotic dextrose (45 mg/mL premix) (has noadministration in time range) sodium chloride 0.9 % infusion (has no administration in time range) calcium carbonate (TUMS) 200 mg elemental (500 mg) chewable tablet 200 mg (200 mg oral Given 11/20/23 1108) famotidine (PEPCID) tablet 20 mg (20 mg oral Given 11/20/23 1108) sodium chloride 0.9 % bolus (1,000 mL intravenous New Bag 11/20/23 1250) insulin regular (HumuLIN R,NovoLIN R) injection 10 Units (10 Units intravenous Given 11/20/23 1250) Medication List None Diagnosis: No diagnosis found. Disposition: Patient's disposition: Admit Patient's condition is stabl Provider Statement By electronically signing this emergency patient record, the Emergency Physician/ADVERTISING REP/PA-C attests that all entries made into the electronic medical record by lynn Cruz prior to the Physician/ADVERTISING REP/PA-C signature reflect an accurate accounting of the evaluation and care rendered by that Emergency Physician/ADVERTISING REP/PA-C. The Emergency Physician/ADVERTISING REP/PA-C assumes full responsibility for those entries.The Emergency Physician/ADVERTISING REP/PA-C also attests that any patient testing or treatment that was instituted by nursing staff in accordance to Emergency Department Preemptive Guidelines have been reviewed and unless so stated elsewhere in this patient chart, the Physician/ADVERTISING REP/PA-C agrees with the testing and care provided. No Additional Attestations Chandu Angeles 11/20/23 1038 Chandu Angeles 11/20/23 1113 Chandu Angeles 11/20/23 1120 Chandu Angeles 11/20/23 1136 Chandu Angeles 11/20/23 1346 Chandu Angeles 11/20/23 1409 Chandu Angeles 11/20/23 1506 Chandu Angeles 11/20/23 1550 Dileep Mtz DO 11/21/23 1607 [facility] Phys[facility] Emergency department Note* Dileep Mtz DO - 11/20/2023 10:25 AM EDT Images from the original note were not included. History No chief complaint on file. Initial evaluation performed at 10:[address] Mtz. Patient is a 63 y.o. male who presents to the ED by EMS for evaluation of Abdominal pain. Pt reports difficulty eating with abdominal pain that has been going on for a few months now. Pt states he was advised by his primary care doctor to come to the ED for his pain. Pt describes the pain as constant and sharp. Pt reports his last bowel movement was this morning and denies nausea or vomiting. Pt denies history of ulcers, blood in stool, and admits to drinking water though he states the water does not sit well with him. Pt reports minimal eating with his last meal being oatmeal. Pt reports no other concerns at this time. History provided by: Patient site interpreter used?: No Problem List Items Addressed This Visit None Past Medical History: Diagnosis Date Diabetes mellitus type 2, controlled (CMS-HCC) No past surgical history on file. Travel Screening Question Response Have you been in contact with someone who was sick? No / Unsure Do you have any of the following new or worsening symptoms? None of these Have you traveled internationally or domestically in the last month? No Travel History Travel since 10/21/23 No documented travel since 10/21/23 No family history on file. Social History Substance and Sexual Activity Drug Use Never Social History Tobacco Use Smoking status: Never Smokeless tobacco: Never Vaping Use Vaping status: Never Used Substance Use Topics Alcohol use: Not Currently Drug use: Never Review of Systems Gastrointestinal: Positive for abdominal pain. Negative for blood in stool, nausea and vomiting. Physical Exam ED Triage Vitals Temp Pulse Resp BP SpO2 -- -- -- -- -- Temp src Heart Rate Source Patient Position BP Location FiO2 (%) -- -- -- -- -- There were no vitals filed for this visit. Physical Exam Vitals and nursing note reviewed. Constitutional: Appearance: He is obese. HENT: Head: Normocephalic and atraumatic. Right Ear: External ear normal. Left Ear: External ear normal. Nose: Nose normal. No congestion. Mouth/Throat: Mouth: Mucous membranes are dry. Pharynx: Oropharynx is clear. Eyes: Extraocular Movements: Extraocular movements intact. Conjunctiva/sclera: Conjunctivae normal. Cardiovascular: Rate and Rhythm: Normal rate and regular rhythm. Pulses: Normal pulses. Heart sounds: Normal heart sounds. Pulmonary: Effort: Pulmonary effort is normal. Breath sounds: Normal breath sounds. Abdominal: General: Abdomen is flat. Palpations: Abdomen is soft. Tenderness: There is no guarding or rebound. Musculoskeletal: General: No swelling. Normal range of motion. Cervical back: Normal range of motion and neck supple. Skin: General: Skin is warm and dry. Neurological: General: No focal deficit present. Mental Status: He is alert and oriented to person, place, and time. Psychiatric: Mood and Affect: Mood normal. Behavior: Behavior normal. Thought Content: Thought content does not include homicidal or suicidal ideation. Comments: Pt indicated he may be lacking food at home due to financial difficulties. Procedure Procedures Re-Evaluation 1.[address] Mtz spoke with pt on plan of care when the stated her had a CAT scan where theresults warranted coming to the ED, this was yesterday. 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 Mtz. Chart Reviewed. Date: Chief Complaint: Abdominal Pain Differential Diagnosis includes but is not limited to: Peptic ulcer disease, Gastroenitis, pancreatitis, UT. Plan of Care: ECG, CMP, CBC, Lipase Labs notable for: Lipase 47, % O2 sat 42.0, Portable HCO3 29.2, base excess 3.0, PO2 venous, Alkaline Phosphatase, Total Protein 8.1, glucose 361, Creatinine 1.24. Imaging was independently viewed by Dr. Mtz and is notable for Nonobstructive bowel gas patternwith moderate stool burden. However, pending official radiologist read. Dr. Mtz ( Emergency Medicine) spoke with Dr. Cooper (General Surgery) on pt plan of care. Dr. Cooper plans to operate once the pt is stable and wants the pt admitted here and started on Zosyn. Amount and/or Complexity of Data Reviewed Labs: ordered. ECG/medicine tests: ordered. Risk OTC drugs. Prescription drug management. RESULTS Labs: Labs Reviewed COMPREHENSIVE METABOLIC PANEL - Abnormal; Notable for the following components: Result Value Creatinine 1.24 (*) Glucose 361 (*) Total Protein 8.1 (*) Alkaline Phosphatase 131 (*) All other components within normal limits LIPASE - Abnormal; Notable for the following components: Lipase 47 (*) All other components within normal limits BLOOD GAS, VENOUS - Abnormal; Notable for the following components: PO2, Venous 25 (*) Base,Excess 3.0 (*) Portable HCO3 29.2 (*) % O2 Sat 42.0 (*) All other components within normal limits CBC WITH AUTO DIFFERENTIAL BLOOD GAS, VENOUS ACETONE,(BETAHYDROXYBUTYRATE, KETONE) QUANTITATIVE SERUM Radiology: CT abdomen and pelvis with and without contrast Result Date: 11/19/2023 Narrative: CT ABDOMEN AND PELVIS W WO CONT HISTORY: Generalized abdominal pain COMPARISON: CT abdomen pelvis 06/06/2012 TECHNIQUE: CT images of abdomen and pelvis obtained with and without intravenouscontrast. Automated exposure control was utilized. All CT scans at this facility use dose modulation, iterative reconstruction, and/or weight based dosing when appropriate to reduce radiation dose toas low as reasonably achievable. CONTRAST: Oral: None IV: 100 mL Omnipaque 300 FINDINGS: LOWER CHEST: Bilateral gynecomastia. Evaluation of the lung bases is suboptimal secondary to respiratory motion artifact. LIVER AND BILIARY: Noncirrhotic liver morphology. No suspicious hepatic mass or lesion. T he portal venous system appears patent. There is gallbladder wall thickening and pericholecystic fat stranding. Large volume of gas seen within the gallbladder which appears to be extending to a defect in the wall which closely abuts and likely communicates with the adjacent duodenum. The adjacent D2 segment of duodenum has evidence of wall thickening and surrounding fat stranding. Equivocal fistulous communication (series 4, image 24). PANCREAS: Unremarkable SPLEEN: Unremarkable. ADRENALS: No adrenal mass or lesion. KIDNEYS, URETERS, AND BLADDER: No suspicious renal mass or lesion.. No collecting system dilatation. No renal calculi.. Ureters and bladder are unremarkable. GI TRACT AND PERITO NEUM: The appendix is not well-visualized. Terminal ileum is unremarkable appearing. There is no evidence of bowel obstruction. Large burden of stool in the colon. Inflammatory changes with apparent defect within the wall of the D2 segment of duodenum and adjacent gallbladder. VASCULATURE: Unremarkable LYMPH NODES: No enlarged lymph nodes by size criteria. REPRODUCTIVE ORGANS: Unremarkable MUSCULOSKELETAL: No acute abnormalities. IMPRESSION: * Findings most compatible with choleduodenal fistulawith inflammatory changes about both the D2 segment of the duodenum and adjacent gallbladder. Giventhe degree of inflammatory change, correlate for underlying duodenal ulceration. No evidence of bowel obstruction/gallstone ileus. THIS REPORT CONTAINS A SIGNIFICANT RESULT AND/OR RECOMMENDATION, WHICH REQUIRES THE ATTENTION OF THE LICENSED CAREGIVER RESPONSIBLE FOR THIS PATIENT. THEREFORE, I SPECIFICALLY DESIGNATED THIS REPORT TO BE TELEPHONED BY THE RADIOLOGY DEPARTMENT. FINDINGS WERE INSTRUCTED TO BE CALLED TO THE CLINICAL SERVICE ON 11/19/2023 AT 1620 hours. Approved by Resident Juan Mcmillan DO on 11/19/2023 2:04 PM IMichelet MD have personally reviewed the image(s) and agree with and/or edited the report Finalized by Michelet Alejandro MD on 11/19/2023 4:[address] abdomen and pelvis with and without contrast Result Date: 11/19/2023 Narrative: THIS EXAM WAS PERFORMED AT [facility] CT ABDOMEN AND PELVIS W WO CONT HISTORY: Generalized abdominal pain COMPARISON: CT abdomen pelvis 06/06/2012 TECHNIQUE: CT images of abdomen and pelvis obtained with and without intravenous contrast. Automated exposure control was utilized. All CT scans at this facility use dose modulation, iterative reconstruction, and/or weight based dosing when appropriate to reduce radiation dose to as low as reasonably achievable. CONTRAST: Oral: None IV: 100 mL Omnipaque 300 FINDINGS: LOWER CHEST: Bilateral gynecomastia. Evaluation of the lung bases is suboptimal secondary to respiratory motion artifact. LIVER AND BILIARY: Noncirrhotic liver morphology. No suspicious hepatic mass or lesion. The portal venous system appears patent. There is gallbladder wall thickening and pericholecystic fat stranding. Large volume of gas seen within the gallbladder which appears to be extending to a defect in the wall which closely abuts and likely communicates withthe adjacent duodenum. The adjacent D2 segment of duodenum has evidence of wall thickening and surrounding fat stranding. Equivocal fistulous communication (series 4, image 24). PANCREAS: Unremarkable SPLEEN: Unremarkable. ADRENALS: No adrenal mass or lesion. KIDNEYS, URETERS, AND BLADDER: No suspicious renal mass or lesion.. No collecting system dilatation. No renal calculi.. Ureters and bladder are unremarkable. GI TRACT AND PERITONEUM: The appendix is not well-visualized. Terminal ileum is unremarkable appearing. There is no evidence of bowel obstruction. Large burden of stool in the colon. Inflammatory changes with apparent defect within the wall of the D2 segment of duodenum and adjacent gallbladder. VASCULATURE: Unremarkable LYMPH NODES: No enlarged lymph nodes by size criteria. REPRODUCTIVE ORGANS: Unremarkable MUSCULOSKELETAL: No acute abnormalities. 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 Given the degree of inflammatory change, correlate for underlying duodenal ulceration. No evidence of bowel obstruction/gallstone ileus. THIS REPORT CONTAINS A SIGNIFICANT RESULT AND/OR RECOMMENDATION, WHICH REQUIRES THE ATTENTION OF THE LICENSED CAREGIVER RESPONSIBLEFOR THIS PATIENT. THEREFORE, I SPECIFICALLY DESIGNATED THIS REPORT TO BE TELEPHONED BY THE RADIOLOGY DEPARTMENT. FINDINGS WERE INSTRUCTED TO BE CALLED TO THE CLINICAL SERVICE ON 11/19/2023 AT 1620 hours. Approved by Resident Juan Mcmillan DO on 11/19/2023 2:04 PM Michelet Valdes MD have personally reviewed the image(s) and agree with and/or edited the report Finalized by Annetta Alejandro MD on 11/19/2023 4:20 PM NURSING NOTES AND VITALS REVIEWED The nursing notes within the ED encounter and vital signs as below have been reviewed. BP 96/60 Pulse 69 Temp 36.6 C (97.9 F) (Oral) Resp 17 Ht 177.8 cm (5' 10 ) Wt 128.6 kg (283 lb 9.6 oz) SpO2 97% BMI 40.69 kg/m PROGRESS NOTES The plan of care has been discussed with patient including today s results, in addition to providing specific details regarding counseling pertaining to the diagnosis and prognosis. All questions were answered at this time and they are agreeable with the plan ADDITIONAL PROVIDER NOTES At this time the patient has objective evidence of an acute process requiring hospitalization or inpatient management. Medications sodium chloride 0.9 % flush 3 mL (has no administration in time range) piperacillin-tazobactam (ZOSYN) IVPB 4.5 g/100 mL in iso-osmotic dextrose (45 mg/mL premix) (has noadministration in time range) sodium chloride 0.9 % infusion (has no administration in time range) calcium carbonate (TUMS) 200 mg elemental (500 mg) chewable tablet 200 mg (200 mg oral Given 11/20/23 1108) famotidine (PEPCID) tablet 20 mg (20 mg oral Given 11/20/23 1108) sodium chloride 0.9 % bolus (1,000 mL intravenous New Bag 11/20/23 1250) insulin regular (HumuLIN R,NovoLIN R) injection 10 Units (10 Units intravenous Given 11/20/23 1250) Medication List None Diagnosis: No diagnosis found. Disposition: Patient's disposition: Admit Patient's condition is stabl Provider Statement By electronically signing this emergency patient record, the Emergency Physician/ADVERTISING REP/PA-C attests that all entries made into the electronic medical record by lynn Cruz prior to the Physician/ADVERTISING REP/PA-C signature reflect an accurate accounting of the evaluation and care rendered by that Emergency Physician/ADVERTISING REP/PA-C. The Emergency Physician/ADVERTISING REP/PA-C assumes full responsibility for those entries.The Emergency Physician/ADVERTISING REP/PA-C also attests that any patient testing or treatment that was instituted by nursing staff in accordance to Emergency Department Preemptive Guidelines have been reviewed and unless so stated elsewhere in this patient chart, the Physician/ADVERTISING REP/PA-C agrees with the testing and care provided. No Additional Attestations Chandu Angeles 11/20/23 1038 Chandu Angeles 11/20/23 1113 Chandu Angeles 11/20/23 1120 Chandu Angeles 11/20/23 1136 Chandu Angeles 11/20/23 1346 Chandu Angeles 11/20/23 1409 Chandu Angeles 11/20/23 1506 Chandu Angeles 11/20/23 1550 Dileep Mtz DO 11/21/23 1607 [facility] History of Present illness Narrative* Davion Pritchard MD - 11/04/2023 11:18 AM EDTAssociated Problem(s): Early satiety Feels full quickly and develops nausea. Possible side effect from ozempic and stop. * Davion Pritchard MD - 11/04/2023 11:18 AM EDTAssociated Problem(s): Generalized abdominal pain Severe pain and nausea of unclear etiology. Check labs and CT. * Davion Pritchard MD - 11/04/2023 9:30 AM EDT Images from the original note were not included. Subjective Patient ID: Boo Capps is a 63 y.o. male who presents for Abdominal Pain (Stomach pain). C/o abdominal pain and nausea for weeks and getting worse over past week. Decreased appetite and not able to eat much. Once starts to eat feels full and develop nausea. Developed diffuse abdominal pain once start eating. Frequent diarrhea and urgency for BM. Using bentyl and not much relief. On omeprazole and denies reflux or heartburn. Pain getting worse and harder to function. Stops eating after few bites and develops pain. Review of Systems Constitutional: Negative for fatigue. Respiratory: Negative for cough, shortness of breath and wheezing. Cardiovascular: Negative for chest pain and palpitations. Gastrointestinal: Positive for abdominal pain, diarrhea and nausea. Negative for vomiting. Genitourinary: Negative for dysuria. Objective Physical Exam Constitutional: General: He is not in acute distress. Appearance: Normal appearance. HENT: Head: Normocephalic. Right Ear: Tympanic membrane and ear canal normal. Left Ear: Tympanic membrane and ear canal normal. Eyes: Extraocular Movements: Extraocular movements intact. Pupils: Pupils are equal, round, and reactive to light. Cardiovascular: Rate and Rhythm: Normal rate and regular rhythm. Heart sounds: No murmur heard. No friction rub. No gallop. Pulmonary: Breath sounds: Normal breath sounds. No wheezing, rhonchi or rales. Abdominal: General: Bowel sounds are normal. There is no distension. Palpations: Abdomen is soft. Tenderness: There is no abdominal tenderness. There is no guarding or rebound. Musculoskeletal: Left lower leg: No edema. Neurological: Mental Status: He is alert. Assessment/Plan Problem List Items Addressed This Visit Generalized abdominal pain - Primary Severe pain and nausea of unclear etiology. Check labs and CT. Relevant Orders CT abdomen pelvis w and wo IV contrast Basic metabolic panel Hepatic function panel CBC and differential Early satiety Feels full quickly and develops nausea. Possible side effect from ozempic and stop. documented in this encounterEllett Memorial [id number] History of Present illness Narrative* Davion Pritchard MD - 10/19/2023 2:46 PM EDTAssociated Problem(s): Gastroesophageal reflux disease without esophagitis Symptoms controlled with omeprazole and continue. * Davion Pritchard MD - 10/19/2023 2:45 PM EDTAssociated Problem(s): Type 2 diabetes mellitus with hyperglycemia, without long-term current use of insulin (CMS/HCC) Not checking BS. Script for glucometer sent to pharmacy. Check BS once a day. Stick to ADA diet andlimit carbs. * Davion Pritchard MD - 10/19/2023 2:45 PM EDTAssociated Problem(s): Migraine without aura or status migrainosus (CMS/HCC) R[place]MOND worse and increase topamax. Use imitrex PRN. * Davion Pritchard MD - 10/19/2023 2:44 PM EDTAssociated Problem(s): Major depressive disorder, recurrent episode, mild (HCC) (CMS/HCC) Mood controlled with medication and continue. * Davion Pritchard MD - 10/19/2023 2:44 PM EDTAssociated Problem(s): Generalized anxiety disorder (CMS/HCC) Mood controlled with medication and continue. Use klonopin PRN. * Davion Pritchard MD - 10/19/2023 2:44 PM EDTAssociated Problem(s): Chronic bilateral low back pain without sciatica C/o pain and okay to see chiropractor. * Davion Pritchard MD - 10/19/2023 2:15 PM EDT Images from the original note were not included. Subjective Patient ID: Boo Capps is a 63 y.o. male who presents for Follow-up (3 m/Back pain) and Headache. Follow up DM, depression, anxiety, migraines, and GERD. Not checking BS and still needs new meter. Tries to eat well and stick to ADA diet. Denies signs of elevated BS such as polyuria, polyphagia orpolydipsia. Last A1C 9.2. Migraines worse. R[place] almost daily and at times hard to function. Throbbingpain in entire head associated with photophobia, phonophobia and nausea. Using medication PRN and helps when needed. Depression controlled with medication. Not down or sad and feels happier. Anxiety stable. Not as stressed out or overwhelmed. Not as nervous or worry as much. Not as yip or irritable. Using klonopin PRN and helps. GERD controlled with omeprazole. Denies epigastric pain or burningand not waking up with symptoms. Headache Pertinent negatives include no abdominal pain, coughing, nausea or vomiting. Review of Systems Constitutional: Negative for fatigue. Respiratory: Negative for cough, shortness of breath and wheezing. Cardiovascular: Negative for chest pain and palpitations. Gastrointestinal: Negative for abdominal pain, diarrhea, nausea and vomiting. Genitourinary: Negative for dysuria. Neurological: Positive for headaches. Objective Physical Exam Constitutional: General: He is not in acute distress. Appearance: Normal appearance. HENT: Head: Normocephalic. Right Ear: Tympanic membrane and ear canal normal. Left Ear: Tympanic membrane and ear canal normal. Eyes: Extraocular Movements: Extraocular movements intact. Pupils: Pupils are equal, round, and reactive to light. Cardiovascular: Rate and Rhythm: Normal rate and regular rhythm. Heart sounds: No murmur heard. No friction rub. No gallop. Pulmonary: Breath sounds: Normal breath sounds. No wheezing, rhonchi or rales. Abdominal: General: Bowel sounds are normal. There is no distension. Palpations: Abdomen is soft. Tenderness: There is no abdominal tenderness. There is no guarding or rebound. Musculoskeletal: Left lower leg: No edema. Neurological: Mental Status: He is alert. Assessment/Plan Problem List Items Addressed This Visit Generalized anxiety disorder (CMS/HCC) Mood controlled with medication and continue. Use klonopin PRN. Major depressive disorder, recurrent episode, mild (HCC) (CMS/HCC) Mood controlled with medication and continue. Migraine without aura or status migrainosus (CMS/HCC) R[place]MOND worse and increase topamax. Use imitrex PRN. Relevant Medications topiramate 50 MG tablet Type 2 diabetes mellitus with hyperglycemia, without long-term current use of insulin (CMS/HCC) - Primary Not checking BS. Script for glucometer sent to pharmacy. Check BS once a day. Stick to ADA diet andlimit carbs. Relevant Medications Blood Glucose Monitoring Suppl (Blood Glucose Monitor System) w/Device kit Glucose Blood (Blood Glucose Test Strips 333) strip Lancets Micro Thin 33G misc Chronic bilateral low back pain without sciatica C/o pain and okay to see chiropractor. Gastroesophageal reflux disease without esophagitis Symptoms controlled with omeprazole and continue. documented in this encounterEllett Memorial [id number] Miscellaneous Notes* Telephone Encounter - Leyla Rivera - 04/22/2023 2:20 PM EDT First Attempt Made from [employer]- Left Voicemail New patient referral received. Dx:Memory loss [R41.3]/ Referred by:Davion Pritchard MD Referred to: Providers patient can see in clinic: [facility] Please contact patient to schedule from referral, Thanks! PLEASE REVIEW PLAN OVER THE PHONE AND ADVISE PATIENT TO BRING UPDATED INSURANCE INFORMATION TO THEIR NEW PATIENT APPOINTMENT * Telephone Encounter - Porsha Rankin - 04/22/2023 2:20 PM EDT 2nd attempt: Called and left patient a voicemail once more letting them know we have received theirreferral, are ready to schedule, and to call us back at their earliest convenience to do so. Writerprovided callback number for scheduling or to address any questions or concerns they may have. documented in this encounterM[facility]03-[facility] Telephone encounter Note* Telephone Encounter - Leyla Rivera - 04/22/2023 2:20 PM EDT First Attempt Made from [employer]- Left Voicemail New patient referral received. Dx:Memory loss [R41.3]/ Referred by:Davion Pritchard MD Referred to: Providers patient can see in clinic: [facility] Please contact patient to schedule from referral, Thanks! PLEASE REVIEW PLAN OVER THE PHONE AND ADVISE PATIENT TO BRING UPDATED INSURANCE INFORMATION TO THEIR NEW PATIENT APPOINTMENT [facility] Telephone encounter Note* Telephone Encounter - Porsha Rankin - 04/22/2023 2:20 PM EDT 2nd attempt: Called and left patient a voicemail once more letting them know we have received theirreferral, are ready to schedule, and to call us back at their earliest convenience to do so. Writerprovided callback number for scheduling or to address any questions or concerns they may have. [facility] SystemEvaluation note* Diagnosis Type 2 diabetes mellitus with hyperglycemia, without long-term current use of insulin (CMS/HCC)- Primary Major depressive disorder, recurrent episode, mild (HCC) ([facility]/HCC) Major depressive disorder, recurrent episode, mild Generalized anxiety disorder (CMS/HCC) Generalized anxiety disorder Memory loss Bilateral leg edema Edema Irritable bowel syndrome with diarrhea Irritable bowel syndrome Duodenitis Epigastric pain Abdominal pain, epigastric Migraine without aura and without status migrainosus, not intractable (CMS/HCC) Morbid (severe) obesity due to excess calories (CMS/HCC) Type 2 diabetes mellitus with stage 3a chronic kidney disease, without long-term current use of insulin (HCC) (CMS/HCC) Type 2 diabetes mellitus with hyperglycemia, without long-term current use of insulin (CMS/HCC)- Primary Major depressive disorder, recurrent episode, mild (HCC) (CMS/HCC) Major depressive disorder, recurrent episode, mild Generalized anxiety disorder (CMS/HCC) Generalized anxiety disorder Migraine without aura and without status migrainosus, not intractable (CMS/HCC) Irritable bowel syndrome with diarrhea Irritable bowel syndrome Duodenitis Morbid (severe) obesity due to excess calories (CMS/HCC) Type 2 diabetes mellitus with stage 3a chronic kidney disease, without long-term current use of insulin (HCC) (CMS/HCC) Chronic kidney disease, stage 3a (N18.31) Type 2 diabetes mellitus with hyperglycemia, without long-term current use of insulin (CMS/HCC)- Primary Migraine without aura and without status migrainosus, not intractable (CMS/HCC) Major depressive disorder, recurrent episode, mild (HCC) (CMS/HCC) Major depressive disorder, recurrent episode, mild Generalized anxiety disorder (CMS/HCC) Generalized anxiety disorder Chronic bilateral low back pain without sciatica Gastroesophageal reflux disease without esophagitis Esophageal reflux Immunodeficiency due to conditions classified elsewhere (CMS/[facility]) Generalized abdominal pain- Primary Abdominal pain, generalized Early satiety Anxiety Anxiety state, unspecified documented in this encounter [facility] HealthcareEvaluation note* Diagnosis Type 2 diabetes mellitus with hyperglycemia, without long-term current use of insulin (CMS/HCC)- Primary Major depressive disorder, recurrent episode, mild (HCC) (CMS/HCC) Major depressive disorder, recurrent episode, mild Generalized anxiety disorder (CMS/HCC) Generalized anxiety disorder Memory loss Bilateral leg edema Edema Irritable bowel syndrome with diarrhea Irritable bowel syndrome Duodenitis Epigastric pain Abdominal pain, epigastric Migraine without aura and without status migrainosus, not intractable (CMS/HCC) Morbid (severe) obesity due to excess calories (CMS/HCC) Type 2 diabetes mellitus with stage 3a chronic kidney disease, without long-term current use of insulin (HCC) (CMS/HCC) Type 2 diabetes mellitus with hyperglycemia, without long-term current use of insulin (CMS/HCC)- Primary Major depressive disorder, recurrent episode, mild (HCC) (CMS/HCC) Major depressive disorder, recurrent episode, mild Generalized anxiety disorder (CMS/HCC) Generalized anxiety disorder Migraine without aura and without status migrainosus, not intractable (CMS/HCC) Irritable bowel syndrome with diarrhea Irritable bowel syndrome Duodenitis Morbid (severe) obesity due to excess calories (CMS/HCC) Type 2 diabetes mellitus with stage 3a chronic kidney disease, without long-term current use of insulin (HCC) (CMS/HCC) Chronic kidney disease, stage 3a (N18.31) Type 2 diabetes mellitus with hyperglycemia, without long-term current use of insulin (CMS/HCC)- Primary Migraine without aura and without status migrainosus, not intractable (CMS/HCC) Major depressive disorder, recurrent episode, mild (HCC) (CMS/HCC) Major depressive disorder, recurrent episode, mild Generalized anxiety disorder (CMS/HCC) Generalized anxiety disorder Chronic bilateral low back pain without sciatica Gastroesophageal reflux disease without esophagitis Esophageal reflux Immunodeficiency due to conditions classified elsewhere (CMS/HCC) Generalized abdominal pain- Primary Abdominal pain, generalized Early satiety 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 Bile leak Unspecified disorder of biliary tract Type 2 diabetes mellitus with hyperglycemia, without long-term current use of insulin (CMS/HCC) documented in this encounter [facility] HealthcareEvaluation note* Diagnosis Type 2 diabetes mellitus with hyperglycemia, without long-term current use of insulin (CMS/HCC)- Primary Major depressive disorder, recurrent episode, mild (HCC) (CMS/HCC) Major depressive disorder, recurrent episode, mild Generalized anxiety disorder (CMS/HCC) Generalized anxiety disorder Memory loss Bilateral leg edema Edema Irritable bowel syndrome with diarrhea Irritable bowel syndrome Duodenitis Epigastric pain Abdominal pain, epigastric Migraine without aura and without status migrainosus, not intractable (CMS/HCC) Morbid (severe) obesity due to excess calories (CMS/HCC) Type 2 diabetes mellitus with stage 3a chronic kidney disease, without long-term current use of insulin (HCC) (CMS/HCC) Type 2 diabetes mellitus with hyperglycemia, without long-term current use of insulin (CMS/HCC)- Primary Major depressive disorder, recurrent episode, mild (HCC) (CMS/HCC) Major depressive disorder, recurrent episode, mild Generalized anxiety disorder (CMS/HCC) Generalized anxiety disorder Migraine without aura and without status migrainosus, not intractable (CMS/HCC) Irritable bowel syndrome with diarrhea Irritable bowel syndrome Duodenitis Morbid (severe) obesity due to excess calories (CMS/HCC) Type 2 diabetes mellitus with stage 3a chronic kidney disease, without long-term current use of insulin (HCC) (CMS/HCC) Chronic kidney disease, stage 3a (N18.31) Type 2 diabetes mellitus with hyperglycemia, without long-term current use of insulin (CMS/HCC)- Primary Migraine without aura and without status migrainosus, not intractable (CMS/HCC) Major depressive disorder, recurrent episode, mild (HCC) (CMS/HCC) Major depressive disorder, recurrent episode, mild Generalized anxiety disorder (CMS/HCC) Generalized anxiety disorder Chronic bilateral low back pain without sciatica Gastroesophageal reflux disease without esophagitis Esophageal reflux Immunodeficiency due to conditions classified elsewhere (CMS/HCC) Obstructive sleep apnea Obstructive sleep apnea (adult) (pediatric) Generalized abdominal pain- Primary Abdominal pain, generalized Early satiety 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 Bile leak Unspecified disorder of biliary tract Type 2 diabetes mellitus with hyperglycemia, without long-term current use of insulin (CMS/HCC) Migraine without aura and without status migrainosus, not intractable (CMS/HCC) documented in this encounter [facility] HealthcareEvaluation note* Diagnosis Type 2 diabetes mellitus with hyperglycemia, without long-term current use of insulin (CMS/HCC)- Primary Major depressive disorder, recurrent episode, mild (HCC) (CMS/HCC) Major depressive disorder, recurrent episode, mild Generalized anxiety disorder (CMS/HCC) Generalized anxiety disorder Memory loss Bilateral leg edema Edema Irritable bowel syndrome with diarrhea Irritable bowel syndrome Duodenitis Epigastric pain Abdominal pain, epigastric Migraine without aura and without status migrainosus, not intractable (CMS/HCC) Morbid (severe) obesity due to excess calories (CMS/HCC) Type 2 diabetes mellitus with stage 3a chronic kidney disease, without long-term current use of insulin (HCC) (CMS/HCC) Type 2 diabetes mellitus with hyperglycemia, without long-term current use of insulin (CMS/HCC)- Primary Major depressive disorder, recurrent episode, mild (HCC) (CMS/HCC) Major depressive disorder, recurrent episode, mild Generalized anxiety disorder (CMS/HCC) Generalized anxiety disorder Migraine without aura and without status migrainosus, not intractable (CMS/HCC) Irritable bowel syndrome with diarrhea Irritable bowel syndrome Duodenitis Morbid (severe) obesity due to excess calories (CMS/HCC) Type 2 diabetes mellitus with stage 3a chronic kidney disease, without long-term current use of insulin (HCC) (CMS/HCC) Chronic kidney disease, stage 3a (N18.31) Type 2 diabetes mellitus with hyperglycemia, without long-term current use of insulin (CMS/HCC)- Primary Migraine without aura and without status migrainosus, not intractable (CMS/HCC) Major depressive disorder, recurrent episode, mild (HCC) ([facility]/HCC) Major depressive disorder, recurrent episode, mild Generalized anxiety disorder ([facility]/HCC) Generalized anxiety disorder Chronic bilateral low back pain without sciatica Gastroesophageal reflux disease without esophagitis Esophageal reflux Immunodeficiency due to conditions classified elsewhere ([facility]/HCC) Obstructive sleep apnea Obstructive sleep apnea (adult) (pediatric) Generalized abdominal pain- Primary Abdominal pain, generalized Early satiety 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 Bile leak Unspecified disorder of biliary tract Type 2 diabetes mellitus with hyperglycemia, without long-term current use of insulin (CMS/HCC) Medicare annual wellness visit, subsequent- Primary Type 2 diabetes mellitus with hyperglycemia, without long-term current use of insulin ([facility]) documented in this encounter [facility] HealthcareEvaluation note* Diagnosis Anxiety Anxiety state, unspecified documented in this encounter [facility] HealthcareEvaluation note* Diagnosis Type 2 diabetes mellitus with hyperglycemia, without long-term current use of insulin ([facility])- Primary Major depressive disorder, recurrent episode, mild (HCC) ([facility]) Major depressive disorder, recurrent episode, mild Generalized anxiety disorder ([facility]) Generalized anxiety disorder Memory loss Bilateral leg edema Edema Irritable bowel syndrome with diarrhea Irritable bowel syndrome Duodenitis Epigastric pain Abdominal pain, epigastric Migraine without aura and without status migrainosus, not intractable (CMS/HCC) Morbid (severe) obesity due to excess calories ([facility]) Type 2 diabetes mellitus with stage 3a chronic kidney disease, without long-term current use of insulin (HCC) ([facility]) Type 2 diabetes mellitus with hyperglycemia, without long-term current use of insulin ([facility])- Primary Major depressive disorder, recurrent episode, mild (HCC) ([facility]/HCC) Major depressive disorder, recurrent episode, mild Generalized anxiety disorder ([facility]/HCC) Generalized anxiety disorder Migraine without aura and without status migrainosus, not intractable (CMS/HCC) Irritable bowel syndrome with diarrhea Irritable bowel syndrome Duodenitis Morbid (severe) obesity due to excess calories ([facility]) Type 2 diabetes mellitus with stage 3a chronic kidney disease, without long-term current use of insulin (HCC) ([facility]) Chronic kidney disease, stage 3a (N18.31) Type 2 diabetes mellitus with hyperglycemia, without long-term current use of insulin ([facility])- Primary Migraine without aura and without status migrainosus, not intractable (CMS/HCC) Major depressive disorder, recurrent episode, mild (HCC) ([facility]/HCC) Major depressive disorder, recurrent episode, mild Generalized anxiety disorder ([facility]/HCC) Generalized anxiety disorder Chronic bilateral low back pain without sciatica Gastroesophageal reflux disease without esophagitis Esophageal reflux Immunodeficiency due to conditions classified elsewhere ([facility]) Obstructive sleep apnea Obstructive sleep apnea (adult) (pediatric) Generalized abdominal pain- Primary Abdominal pain, generalized Early satiety 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 Bile leak Unspecified disorder of biliary tract Type 2 diabetes mellitus with hyperglycemia, without long-term current use of insulin ([facility]/HCC) Medicare annual wellness visit, subsequent- Primary Type 2 diabetes mellitus with hyperglycemia, without long-term current use of insulin ([facility]) Anxiety Anxiety state, unspecified Migraine without aura and without status migrainosus, not intractable ([facility]) documented in this encounter [facility] HealthcareEvaluation note* Diagnosis Type 2 diabetes mellitus with hyperglycemia, without long-term current use of insulin ([facility])- Primary Migraine without aura and without status migrainosus, not intractable (CMS/HCC) Major depressive disorder, recurrent episode, mild (HCC) ([facility]) Major depressive disorder, recurrent episode, mild Generalized anxiety disorder ([facility]) Generalized anxiety disorder Chronic bilateral low back pain without sciatica Gastroesophageal reflux disease without esophagitis Esophageal reflux Immunodeficiency due to conditions classified elsewhere ([facility]) documented in this encounter [facility] HealthcareEvaluation note* Diagnosis Generalized abdominal pain- Primary Abdominal pain, generalized Early satiety documented in this encounter [facility] HealthcareEvaluation note* Diagnosis Type 2 diabetes mellitus with hyperglycemia, without long-term current use of insulin ([facility])- Primary Major depressive disorder, recurrent episode, mild (HCC) ([facility]) Major depressive disorder, recurrent episode, mild Generalized anxiety disorder ([facility]/HCC) Generalized anxiety disorder Memory loss Bilateral leg edema Edema Irritable bowel syndrome with diarrhea Irritable bowel syndrome Duodenitis Epigastric pain Abdominal pain, epigastric Migraine without aura and without status migrainosus, not intractable (CMS/HCC) Morbid (severe) obesity due to excess calories ([facility]) Type 2 diabetes mellitus with stage 3a chronic kidney disease, without long-term current use of insulin (HCC) ([facility]) Type 2 diabetes mellitus with hyperglycemia, without long-term current use of insulin ([facility]/HCC)- Primary Major depressive disorder, recurrent episode, mild (HCC) (CMS/HCC) Major depressive disorder, recurrent episode, mild Generalized anxiety disorder (CMS/HCC) Generalized anxiety disorder Migraine without aura and without status migrainosus, not intractable (CMS/HCC) Irritable bowel syndrome with diarrhea Irritable bowel syndrome Duodenitis Morbid (severe) obesity due to excess calories (CMS/HCC) Type 2 diabetes mellitus with stage 3a chronic kidney disease, without long-term current use of insulin (HCC) ([facility]) Chronic kidney disease, stage 3a (N18.31) Type 2 diabetes mellitus with hyperglycemia, without long-term current use of insulin (CMS/HCC)- Primary Migraine without aura and without status migrainosus, not intractable (CMS/HCC) Major depressive disorder, recurrent episode, mild (HCC) (CMS/HCC) Major depressive disorder, recurrent episode, mild Generalized anxiety disorder (CMS/HCC) Generalized anxiety disorder Chronic bilateral low back pain without sciatica Gastroesophageal reflux disease without esophagitis Esophageal reflux Immunodeficiency due to conditions classified elsewhere ([facility]) Obstructive sleep apnea Obstructive sleep apnea (adult) (pediatric) Generalized abdominal pain- Primary Abdominal pain, generalized Early satiety 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 Bile leak Unspecified disorder of biliary tract Type 2 diabetes mellitus with hyperglycemia, without long-term current use of insulin ([facility]) Medicare annual wellness visit, subsequent- Primary Type 2 diabetes mellitus with hyperglycemia, without long-term current use of insulin ([facility]) Obstructive sleep apnea Obstructive sleep apnea (adult) (pediatric) documented in this encounter [facility] HealthcareEvaluation note* Diagnosis Type 2 diabetes mellitus with hyperglycemia, without long-term current use of insulin ([facility]/HCC)- Primary Major depressive disorder, recurrent episode, mild (HCC) ([facility]/HCC) Major depressive disorder, recurrent episode, mild Generalized anxiety disorder (CMS/HCC) Generalized anxiety disorder Memory loss Bilateral leg edema Edema Irritable bowel syndrome with diarrhea Irritable bowel syndrome Duodenitis Epigastric pain Abdominal pain, epigastric Migraine without aura and without status migrainosus, not intractable (CMS/HCC) Morbid (severe) obesity due to excess calories (CMS/[facility]) Type 2 diabetes mellitus with stage 3a chronic kidney disease, without long-term current use of insulin (HCC) ([facility]) Type 2 diabetes mellitus with hyperglycemia, without long-term current use of insulin ([facility])- Primary Major depressive disorder, recurrent episode, mild (HCC) ([facility]) Major depressive disorder, recurrent episode, mild Generalized anxiety disorder ([facility]) Generalized anxiety disorder Migraine without aura and without status migrainosus, not intractable ([facility]) Irritable bowel syndrome with diarrhea Irritable bowel syndrome Duodenitis Morbid (severe) obesity due to excess calories ([facility]) Type 2 diabetes mellitus with stage 3a chronic kidney disease, without long-term current use of insulin (HCC) ([facility]) Chronic kidney disease, stage 3a (N18.31) Type 2 diabetes mellitus with hyperglycemia, without long-term current use of insulin ([facility])- Primary Migraine without aura and without status migrainosus, not intractable ([facility]) Major depressive disorder, recurrent episode, mild (HCC) ([facility]) Major depressive disorder, recurrent episode, mild Generalized anxiety disorder ([facility]) Generalized anxiety disorder Chronic bilateral low back pain without sciatica Gastroesophageal reflux disease without esophagitis Esophageal reflux Immunodeficiency due to conditions classified elsewhere ([facility]) Obstructive sleep apnea Obstructive sleep apnea (adult) (pediatric) Generalized abdominal pain- Primary Abdominal pain, generalized Early satiety 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 Bile leak Unspecified disorder of biliary tract Type 2 diabetes mellitus with hyperglycemia, without long-term current use of insulin ([facility]) Medicare annual wellness visit, subsequent- Primary Type 2 diabetes mellitus with hyperglycemia, without long-term current use of insulin ([facility]) Diabetic polyneuropathy associated with type 2 diabetes mellitus ([facility])- Primary Onychodystrophy Other specified disease of nail Onychomycosis Dermatophytosis of nail Neuritis Unspecified neuralgia, neuritis, and radiculitis Raynaud's phenomenon without gangrene documented in this encounter [facility] HealthcareEvaluation note* Diagnosis Fistula of gallbladder- Primary Fistula of gallbladder Duodenal fistula Fistula of stomach or duodenum Hyperglycemia Other abnormal glucose Class 3 severe obesity due to excess calories with body mass index (BMI) of 40.0 to 44.9 in adult, unspecified whether serious comorbidity present ([facility]) Gastroesophageal reflux disease without esophagitis Esophageal reflux Generalized anxiety disorder Obstructive sleep apnea syndrome Obstructive sleep apnea (adult) (pediatric) Stage 3a chronic kidney disease (CKD) ([facility]) Type 2 diabetes mellitus with hyperglycemia, without long-term current use of insulin ([facility]) Duodenal fistula Fistula of stomach or duodenum Hyperglycemia Other abnormal glucose documented in this encounter [facility] SystemEvaluation note* Diagnosis Bile leak- Primary Unspecified disorder of biliary tract Bile leak Unspecified disorder of biliary tract Mobility impaired Other ill-defined conditions Memory loss Weakness Other malaise and fatigue documented in this encounter [facility] SystemEvaluation note* Diagnosis Status post laparoscopic cholecystectomy- Primary Other postprocedural status documented in this encounter [facility] SystemEvaluation note* Diagnosis Status post laparoscopic cholecystectomy- Primary Other postprocedural status documented in this encounter [facility] SystemEvaluation note* Diagnosis Type 2 diabetes mellitus with hyperglycemia, without long-term current use of insulin ([facility])- Primary Major depressive disorder, recurrent episode, mild (HCC) ([facility]/HCC) Major depressive disorder, recurrent episode, mild Generalized anxiety disorder ([facility]/HCC) Generalized anxiety disorder Memory loss Bilateral leg edema Edema Irritable bowel syndrome with diarrhea Irritable bowel syndrome Duodenitis Epigastric pain Abdominal pain, epigastric Migraine without aura and without status migrainosus, not intractable (CMS/HCC) Morbid (severe) obesity due to excess calories ([facility]/HCC) Type 2 diabetes mellitus with stage 3a chronic kidney disease, without long-term current use of insulin (HCC) ([facility]/HCC) Type 2 diabetes mellitus with hyperglycemia, without long-term current use of insulin ([facility])- Primary Major depressive disorder, recurrent episode, mild (HCC) ([facility]/HCC) Major depressive disorder, recurrent episode, mild Generalized anxiety disorder (CMS/HCC) Generalized anxiety disorder Migraine without aura and without status migrainosus, not intractable (CMS/HCC) Irritable bowel syndrome with diarrhea Irritable bowel syndrome Duodenitis Morbid (severe) obesity due to excess calories (CMS/HCC) Type 2 diabetes mellitus with stage 3a chronic kidney disease, without long-term current use of insulin (HCC) ([facility]/HCC) Chronic kidney disease, stage 3a (N18.31) Type 2 diabetes mellitus with hyperglycemia, without long-term current use of insulin ([facility]/HCC)- Primary Migraine without aura and without status migrainosus, not intractable (CMS/HCC) Major depressive disorder, recurrent episode, mild (HCC) ([facility]/HCC) Major depressive disorder, recurrent episode, mild Generalized anxiety disorder (CMS/HCC) Generalized anxiety disorder Chronic bilateral low back pain without sciatica Gastroesophageal reflux disease without esophagitis Esophageal reflux Immunodeficiency due to conditions classified elsewhere ([facility]) Obstructive sleep apnea Obstructive sleep apnea (adult) (pediatric) Generalized abdominal pain- Primary Abdominal pain, generalized Early satiety 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 Bile leak Unspecified disorder of biliary tract Type 2 diabetes mellitus with hyperglycemia, without long-term current use of insulin ([facility]) Medicare annual wellness visit, subsequent- Primary Type 2 diabetes mellitus with hyperglycemia, without long-term current use of insulin ([facility]) Anxiety Anxiety state, unspecified documented in this encounter [facility] HealthcareEvaluation note* Diagnosis Type 2 diabetes mellitus with hyperglycemia, without long-term current use of insulin ([facility])- Primary Major depressive disorder, recurrent episode, mild (HCC) ([facility]) Major depressive disorder, recurrent episode, mild Generalized anxiety disorder ([facility]) Generalized anxiety disorder Memory loss Bilateral leg edema Edema Irritable bowel syndrome with diarrhea Irritable bowel syndrome Duodenitis Epigastric pain Abdominal pain, epigastric Migraine without aura and without status migrainosus, not intractable ([facility]) Morbid (severe) obesity due to excess calories ([facility]) Type 2 diabetes mellitus with stage 3a chronic kidney disease, without long-term current use of insulin (HCC) ([facility]) Type 2 diabetes mellitus with hyperglycemia, without long-term current use of insulin ([facility])- Primary Major depressive disorder, recurrent episode, mild (HCC) ([facility]) Major depressive disorder, recurrent episode, mild Generalized anxiety disorder ([facility]) Generalized anxiety disorder Migraine without aura and without status migrainosus, not intractable ([facility]) Irritable bowel syndrome with diarrhea Irritable bowel syndrome Duodenitis Morbid (severe) obesity due to excess calories ([facility]) Type 2 diabetes mellitus with stage 3a chronic kidney disease, without long-term current use of insulin (HCC) ([facility]) Chronic kidney disease, stage 3a (N18.31) Type 2 diabetes mellitus with hyperglycemia, without long-term current use of insulin ([facility])- Primary Migraine without aura and without status migrainosus, not intractable (CMS/HCC) Major depressive disorder, recurrent episode, mild (HCC) ([facility]) Major depressive disorder, recurrent episode, mild Generalized anxiety disorder ([facility]) Generalized anxiety disorder Chronic bilateral low back pain without sciatica Gastroesophageal reflux disease without esophagitis Esophageal reflux Immunodeficiency due to conditions classified elsewhere ([facility]/HCC) Obstructive sleep apnea Obstructive sleep apnea (adult) (pediatric) Generalized abdominal pain- Primary Abdominal pain, generalized Early satiety 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 Bile leak Unspecified disorder of biliary tract Type 2 diabetes mellitus with hyperglycemia, without long-term current use of insulin ([facility]/HCC) Medicare annual wellness visit, subsequent- Primary Type 2 diabetes mellitus with hyperglycemia, without long-term current use of insulin ([facility]/HCC) Type 2 diabetes mellitus with hyperglycemia, without long-term current use of insulin ([facility]/HCC)- Primary Major depressive disorder, recurrent episode, mild (HCC) ([facility]/HCC) Major depressive disorder, recurrent episode, mild Generalized anxiety disorder (CMS/[facility]) Generalized anxiety disorder Migraine without aura and without status migrainosus, not intractable (CMS/HCC) Seasonal allergic rhinitis due to pollen Class 1 obesity due to excess calories with serious comorbidity and body mass index (BMI) of 34.0 to 34.9 in adult Gastroesophageal reflux disease without esophagitis Esophageal reflux Obstructive sleep apnea Obstructive sleep apnea (adult) (pediatric) Stage 3a chronic kidney disease (CKD) ([facility]) Screening PSA (prostate specific antigen) Special screening for malignant neoplasm of prostate Encounter for long-term (current) use of medications Encounter for long-term (current) use of other medications History of colon polyps documented in this encounter [facility] HealthcareEvaluation note* Diagnosis Type 2 diabetes mellitus with hyperglycemia, without long-term current use of insulin ([facility])- Primary Major depressive disorder, recurrent episode, mild (HCC) ([facility]/HCC) Major depressive disorder, recurrent episode, mild Generalized anxiety disorder ([facility]/HCC) Generalized anxiety disorder Memory loss Bilateral leg edema Edema Irritable bowel syndrome with diarrhea Irritable bowel syndrome Duodenitis Epigastric pain Abdominal pain, epigastric Migraine without aura and without status migrainosus, not intractable (CMS/HCC) Morbid (severe) obesity due to excess calories ([facility]) Type 2 diabetes mellitus with stage 3a chronic kidney disease, without long-term current use of insulin (HCC) ([facility]) Type 2 diabetes mellitus with hyperglycemia, without long-term current use of insulin ([facility]/HCC)- Primary Major depressive disorder, recurrent episode, mild (HCC) ([facility]) Major depressive disorder, recurrent episode, mild Generalized anxiety disorder (CMS/HCC) Generalized anxiety disorder Migraine without aura and without status migrainosus, not intractable (CMS/HCC) Irritable bowel syndrome with diarrhea Irritable bowel syndrome Duodenitis Morbid (severe) obesity due to excess calories (CMS/HCC) Type 2 diabetes mellitus with stage 3a chronic kidney disease, without long-term current use of insulin (HCC) ([facility]) Chronic kidney disease, stage 3a (N18.31) Type 2 diabetes mellitus with hyperglycemia, without long-term current use of insulin (CMS/HCC)- Primary Migraine without aura and without status migrainosus, not intractable (CMS/HCC) Major depressive disorder, recurrent episode, mild (HCC) ([facility]) Major depressive disorder, recurrent episode, mild Generalized anxiety disorder ([facility]) Generalized anxiety disorder Chronic bilateral low back pain without sciatica Gastroesophageal reflux disease without esophagitis Esophageal reflux Immunodeficiency due to conditions classified elsewhere ([facility]) Obstructive sleep apnea Obstructive sleep apnea (adult) (pediatric) Generalized abdominal pain- Primary Abdominal pain, generalized Early satiety 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 Bile leak Unspecified disorder of biliary tract Type 2 diabetes mellitus with hyperglycemia, without long-term current use of insulin ([facility]) Medicare annual wellness visit, subsequent- Primary Type 2 diabetes mellitus with hyperglycemia, without long-term current use of insulin ([facility]) Type 2 diabetes mellitus with hyperglycemia, without long-term current use of insulin ([facility])- Primary Major depressive disorder, recurrent episode, mild (HCC) ([facility]) Major depressive disorder, recurrent episode, mild Generalized anxiety disorder (CMS/[facility]) Generalized anxiety disorder Migraine without aura and without status migrainosus, not intractable (CMS/HCC) Seasonal allergic rhinitis due to pollen Class 1 obesity due to excess calories with serious comorbidity and body mass index (BMI) of 34.0 to 34.9 in adult Gastroesophageal reflux disease without esophagitis Esophageal reflux Obstructive sleep apnea Obstructive sleep apnea (adult) (pediatric) Stage 3a chronic kidney disease (CKD) ([facility]) Screening PSA (prostate specific antigen) Special screening for malignant neoplasm of prostate Encounter for long-term (current) use of medications Encounter for long-term (current) use of other medications History of colon polyps Anxiety Anxiety state, unspecified documented in this encounter [facility] HealthcareEvaluation note* Diagnosis Type 2 diabetes mellitus with hyperglycemia, without long-term current use of insulin ([facility])- Primary Major depressive disorder, recurrent episode, mild (HCC) (CMS/[facility]) Major depressive disorder, recurrent episode, mild Generalized anxiety disorder ([facility]/HCC) Generalized anxiety disorder Memory loss Bilateral leg edema Edema Irritable bowel syndrome with diarrhea Irritable bowel syndrome Duodenitis Epigastric pain Abdominal pain, epigastric Migraine without aura and without status migrainosus, not intractable (CMS/HCC) Morbid (severe) obesity due to excess calories ([facility]) Type 2 diabetes mellitus with stage 3a chronic kidney disease, without long-term current use of insulin (HCC) ([facility]) Type 2 diabetes mellitus with hyperglycemia, without long-term current use of insulin ([facility])- Primary Major depressive disorder, recurrent episode, mild (HCC) ([facility]) Major depressive disorder, recurrent episode, mild Generalized anxiety disorder ([facility]) Generalized anxiety disorder Migraine without aura and without status migrainosus, not intractable (CMS/[facility]) Irritable bowel syndrome with diarrhea Irritable bowel syndrome Duodenitis Morbid (severe) obesity due to excess calories ([facility]) Type 2 diabetes mellitus with stage 3a chronic kidney disease, without long-term current use of insulin (HCC) ([facility]) Chronic kidney disease, stage 3a (N18.31) Type 2 diabetes mellitus with hyperglycemia, without long-term current use of insulin ([facility])- Primary Migraine without aura and without status migrainosus, not intractable ([facility]) Major depressive disorder, recurrent episode, mild (HCC) ([facility]) Major depressive disorder, recurrent episode, mild Generalized anxiety disorder ([facility]) Generalized anxiety disorder Chronic bilateral low back pain without sciatica Gastroesophageal reflux disease without esophagitis Esophageal reflux Immunodeficiency due to conditions classified elsewhere ([facility]) Obstructive sleep apnea Obstructive sleep apnea (adult) (pediatric) Generalized abdominal pain- Primary Abdominal pain, generalized Early satiety 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 Bile leak Unspecified disorder of biliary tract Type 2 diabetes mellitus with hyperglycemia, without long-term current use of insulin ([facility]) Medicare annual wellness visit, subsequent- Primary Type 2 diabetes mellitus with hyperglycemia, without long-term current use of insulin ([facility]) Type 2 diabetes mellitus with hyperglycemia, without long-term current use of insulin ([facility])- Primary Major depressive disorder, recurrent episode, mild (HCC) ([facility]) Major depressive disorder, recurrent episode, mild Generalized anxiety disorder ([facility]) Generalized anxiety disorder Migraine without aura and without status migrainosus, not intractable (CMS/HCC) Seasonal allergic rhinitis due to pollen Class 1 obesity due to excess calories with serious comorbidity and body mass index (BMI) of 34.0 to 34.9 in adult Gastroesophageal reflux disease without esophagitis Esophageal reflux Obstructive sleep apnea Obstructive sleep apnea (adult) (pediatric) Stage 3a chronic kidney disease (CKD) (CMS/HCC) Screening PSA (prostate specific antigen) Special screening for malignant neoplasm of prostate Encounter for long-term (current) use of medications Encounter for long-term (current) use of other medications History of colon polyps Type 2 diabetes mellitus with hyperglycemia, without long-term current use of insulin (CMS/HCC)- Primary Major depressive disorder, recurrent episode, mild (HCC) (CMS/HCC) Major depressive disorder, recurrent episode, mild Generalized anxiety disorder (CMS/HCC) Generalized anxiety disorder Migraine without aura and without status migrainosus, not intractable (CMS/HCC) Irritable bowel syndrome with diarrhea Irritable bowel syndrome Gastroesophageal reflux disease without esophagitis Esophageal reflux Colon cancer screening Special screening for malignant neoplasms, colon Degeneration of intervertebral disc of lumbar region without discogenic back pain or lower extremity pain documented in this encounter [facility] HealthcareEvaluation note* Diagnosis Type 2 diabetes mellitus with hyperglycemia, without long-term current use of insulin (HCC)- Primary Major depressive disorder, recurrent episode, mild Major depressive disorder, recurrent episode, mild Generalized anxiety disorder Generalized anxiety disorder Memory loss Bilateral leg edema Edema Irritable bowel syndrome with diarrhea Irritable bowel syndrome Duodenitis Epigastric pain Abdominal pain, epigastric Migraine without aura and without status migrainosus, not intractable Morbid (severe) obesity due to excess calories (CMS-HCC) Type 2 diabetes mellitus with stage 3a chronic kidney disease, without long-term current use of insulin (HCC) Type 2 diabetes mellitus with hyperglycemia, without long-term current use of insulin (HCC)- Primary Major depressive disorder, recurrent episode, mild Major depressive disorder, recurrent episode, mild Generalized anxiety disorder Generalized anxiety disorder Migraine without aura and without status migrainosus, not intractable Irritable bowel syndrome with diarrhea Irritable bowel syndrome Duodenitis Morbid (severe) obesity due to excess calories (CMS-HCC) Type 2 diabetes mellitus with stage 3a chronic kidney disease, without long-term current use of insulin (HCC) Chronic kidney disease, stage 3a (N18.31) Type 2 diabetes mellitus with hyperglycemia, without long-term current use of insulin (HCC)- Primary Migraine without aura and without status migrainosus, not intractable Major depressive disorder, recurrent episode, mild Major depressive disorder, recurrent episode, mild Generalized anxiety disorder Generalized anxiety disorder Chronic bilateral low back pain without sciatica Gastroesophageal reflux disease without esophagitis Esophageal reflux Immunodeficiency due to conditions classified elsewhere ([facility]) Obstructive sleep apnea Obstructive sleep apnea (adult) (pediatric) Generalized abdominal pain- Primary Abdominal pain, generalized Early satiety 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 Bile leak Unspecified disorder of biliary tract Type 2 diabetes mellitus with hyperglycemia, without long-term current use of insulin ([facility]) Medicare annual wellness visit, subsequent- Primary Type 2 diabetes mellitus with hyperglycemia, without long-term current use of insulin ([facility]) Type 2 diabetes mellitus with hyperglycemia, without long-term current use of insulin ([facility])- Primary Major depressive disorder, recurrent episode, mild Major depressive disorder, recurrent episode, mild Generalized anxiety disorder Generalized anxiety disorder Migraine without aura and without status migrainosus, not intractable Seasonal allergic rhinitis due to pollen Class 1 obesity due to excess calories with serious comorbidity and body mass index (BMI) of 34.0 to 34.9 in adult Gastroesophageal reflux disease without esophagitis Esophageal reflux Obstructive sleep apnea Obstructive sleep apnea (adult) (pediatric) Stage 3a chronic kidney disease (CKD) ([facility]) Screening PSA (prostate specific antigen) Special screening for malignant neoplasm of prostate Encounter for long-term (current) use of medications Encounter for long-term (current) use of other medications History of colon polyps Type 2 diabetes mellitus with hyperglycemia, without long-term current use of insulin ([facility])- Primary Major depressive disorder, recurrent episode, mild Major depressive disorder, recurrent episode, mild Generalized anxiety disorder Generalized anxiety disorder Migraine without aura and without status migrainosus, not intractable Irritable bowel syndrome with diarrhea Irritable bowel syndrome Gastroesophageal reflux disease without esophagitis Esophageal reflux Colon cancer screening Special screening for malignant neoplasms, colon Degeneration of intervertebral disc of lumbar region without discogenic back pain or lower extremity pain Herpes zoster without complication- Primary Class 2 severe obesity due to excess calories with serious comorbidity and body mass index (BMI) of35.0 to 35.9 in adult ([facility]) Gastro-esophageal reflux disease without esophagitis documented in this encounter [facility] HealthcareEvaluation note* Diagnosis Type 2 diabetes mellitus with hyperglycemia, without long-term current use of insulin ([facility])- Primary Major depressive disorder, recurrent episode, mild Major depressive disorder, recurrent episode, mild Generalized anxiety disorder Generalized anxiety disorder Memory loss Bilateral leg edema Edema Irritable bowel syndrome with diarrhea Irritable bowel syndrome Duodenitis Epigastric pain Abdominal pain, epigastric Migraine without aura and without status migrainosus, not intractable Morbid (severe) obesity due to excess calories ([facility]) Type 2 diabetes mellitus with stage 3a chronic kidney disease, without long-term current use of insulin ([facility]) Type 2 diabetes mellitus with hyperglycemia, without long-term current use of insulin ([facility])- Primary Major depressive disorder, recurrent episode, mild Major depressive disorder, recurrent episode, mild Generalized anxiety disorder Generalized anxiety disorder Migraine without aura and without status migrainosus, not intractable Irritable bowel syndrome with diarrhea Irritable bowel syndrome Duodenitis Morbid (severe) obesity due to excess calories ([facility]) Type 2 diabetes mellitus with stage 3a chronic kidney disease, without long-term current use of insulin ([facility]) Chronic kidney disease, stage 3a (N18.31) Type 2 diabetes mellitus with hyperglycemia, without long-term current use of insulin ([facility])- Primary Migraine without aura and without status migrainosus, not intractable Major depressive disorder, recurrent episode, mild Major depressive disorder, recurrent episode, mild Generalized anxiety disorder Generalized anxiety disorder Chronic bilateral low back pain without sciatica Gastroesophageal reflux disease without esophagitis Esophageal reflux Immunodeficiency due to conditions classified elsewhere ([facility]) Obstructive sleep apnea Obstructive sleep apnea (adult) (pediatric) Generalized abdominal pain- Primary Abdominal pain, generalized Early satiety 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 Bile leak Unspecified disorder of biliary tract Type 2 diabetes mellitus with hyperglycemia, without long-term current use of insulin ([facility]) Medicare annual wellness visit, subsequent- Primary Type 2 diabetes mellitus with hyperglycemia, without long-term current use of insulin ([facility]) Type 2 diabetes mellitus with hyperglycemia, without long-term current use of insulin ([facility])- Primary Major depressive disorder, recurrent episode, mild Major depressive disorder, recurrent episode, mild Generalized anxiety disorder Generalized anxiety disorder Migraine without aura and without status migrainosus, not intractable Seasonal allergic rhinitis due to pollen Class 1 obesity due to excess calories with serious comorbidity and body mass index (BMI) of 34.0 to 34.9 in adult Gastroesophageal reflux disease without esophagitis Esophageal reflux Obstructive sleep apnea Obstructive sleep apnea (adult) (pediatric) Stage 3a chronic kidney disease (CKD) ([facility]) Screening PSA (prostate specific antigen) Special screening for malignant neoplasm of prostate Encounter for long-term (current) use of medications Encounter for long-term (current) use of other medications History of colon polyps Type 2 diabetes mellitus with hyperglycemia, without long-term current use of insulin (HCC)- Primary Major depressive disorder, recurrent episode, mild Major depressive disorder, recurrent episode, mild Generalized anxiety disorder Generalized anxiety disorder Migraine without aura and without status migrainosus, not intractable Irritable bowel syndrome with diarrhea Irritable bowel syndrome Gastroesophageal reflux disease without esophagitis Esophageal reflux Colon cancer screening Special screening for malignant neoplasms, colon Degeneration of intervertebral disc of lumbar region without discogenic back pain or lower extremity pain Herpes zoster without complication- Primary Class 2 severe obesity due to excess calories with serious comorbidity and body mass index (BMI) of35.0 to 35.9 in adult ([facility]) Gastro-esophageal reflux disease without esophagitis Herpes zoster without complication documented in this encounter [facility] HealthcareEvaluation note* Diagnosis Type 2 diabetes mellitus with hyperglycemia, without long-term current use of insulin (HCC)- Primary Major depressive disorder, recurrent episode, mild Major depressive disorder, recurrent episode, mild Generalized anxiety disorder Generalized anxiety disorder Memory loss Bilateral leg edema Edema Irritable bowel syndrome with diarrhea Irritable bowel syndrome Duodenitis Epigastric pain Abdominal pain, epigastric Migraine without aura and without status migrainosus, not intractable Morbid (severe) obesity due to excess calories ([facility]) Type 2 diabetes mellitus with stage 3a chronic kidney disease, without long-term current use of insulin (HCC) Type 2 diabetes mellitus with hyperglycemia, without long-term current use of insulin (HCC)- Primary Major depressive disorder, recurrent episode, mild Major depressive disorder, recurrent episode, mild Generalized anxiety disorder Generalized anxiety disorder Migraine without aura and without status migrainosus, not intractable Irritable bowel syndrome with diarrhea Irritable bowel syndrome Duodenitis Morbid (severe) obesity due to excess calories ([facility]) Type 2 diabetes mellitus with stage 3a chronic kidney disease, without long-term current use of insulin (HCC) Chronic kidney disease, stage 3a (N18.31) Type 2 diabetes mellitus with hyperglycemia, without long-term current use of insulin (HCC)- Primary Migraine without aura and without status migrainosus, not intractable Major depressive disorder, recurrent episode, mild Major depressive disorder, recurrent episode, mild Generalized anxiety disorder Generalized anxiety disorder Chronic bilateral low back pain without sciatica Gastroesophageal reflux disease without esophagitis Esophageal reflux Immunodeficiency due to conditions classified elsewhere ([facility]) Obstructive sleep apnea Obstructive sleep apnea (adult) (pediatric) Generalized abdominal pain- Primary Abdominal pain, generalized Early satiety 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 Bile leak Unspecified disorder of biliary tract Type 2 diabetes mellitus with hyperglycemia, without long-term current use of insulin ([facility]) Medicare annual wellness visit, subsequent- Primary Type 2 diabetes mellitus with hyperglycemia, without long-term current use of insulin ([facility]) Type 2 diabetes mellitus with hyperglycemia, without long-term current use of insulin ([facility])- Primary Major depressive disorder, recurrent episode, mild Major depressive disorder, recurrent episode, mild Generalized anxiety disorder Generalized anxiety disorder Migraine without aura and without status migrainosus, not intractable Seasonal allergic rhinitis due to pollen Class 1 obesity due to excess calories with serious comorbidity and body mass index (BMI) of 34.0 to 34.9 in adult Gastroesophageal reflux disease without esophagitis Esophageal reflux Obstructive sleep apnea Obstructive sleep apnea (adult) (pediatric) Stage 3a chronic kidney disease (CKD) ([facility]) Screening PSA (prostate specific antigen) Special screening for malignant neoplasm of prostate Encounter for long-term (current) use of medications Encounter for long-term (current) use of other medications History of colon polyps Type 2 diabetes mellitus with hyperglycemia, without long-term current use of insulin ([facility])- Primary Major depressive disorder, recurrent episode, mild Major depressive disorder, recurrent episode, mild Generalized anxiety disorder Generalized anxiety disorder Migraine without aura and without status migrainosus, not intractable Irritable bowel syndrome with diarrhea Irritable bowel syndrome Gastroesophageal reflux disease without esophagitis Esophageal reflux Colon cancer screening Special screening for malignant neoplasms, colon Degeneration of intervertebral disc of lumbar region without discogenic back pain or lower extremity pain Herpes zoster without complication- Primary Class 2 severe obesity due to excess calories with serious comorbidity and body mass index (BMI) of35.0 to 35.9 in adult ([facility]) Gastro-esophageal reflux disease without esophagitis Herpes zoster without complication Anxiety Anxiety state, unspecified documented in this encounter [facility] HealthcareEvaluation note* Diagnosis Type 2 diabetes mellitus with hyperglycemia, without long-term current use of insulin ([facility])- Primary Major depressive disorder, recurrent episode, mild Major depressive disorder, recurrent episode, mild Generalized anxiety disorder Generalized anxiety disorder Memory loss Bilateral leg edema Edema Irritable bowel syndrome with diarrhea Irritable bowel syndrome Duodenitis Epigastric pain Abdominal pain, epigastric Migraine without aura and without status migrainosus, not intractable Morbid (severe) obesity due to excess calories ([facility]) Type 2 diabetes mellitus with stage 3a chronic kidney disease, without long-term current use of insulin ([facility]) Type 2 diabetes mellitus with hyperglycemia, without long-term current use of insulin ([facility])- Primary Major depressive disorder, recurrent episode, mild Major depressive disorder, recurrent episode, mild Generalized anxiety disorder Generalized anxiety disorder Migraine without aura and without status migrainosus, not intractable Irritable bowel syndrome with diarrhea Irritable bowel syndrome Duodenitis Morbid (severe) obesity due to excess calories ([facility]) Type 2 diabetes mellitus with stage 3a chronic kidney disease, without long-term current use of insulin ([facility]) Chronic kidney disease, stage 3a (N18.31) Type 2 diabetes mellitus with hyperglycemia, without long-term current use of insulin ([facility])- Primary Migraine without aura and without status migrainosus, not intractable Major depressive disorder, recurrent episode, mild Major depressive disorder, recurrent episode, mild Generalized anxiety disorder Generalized anxiety disorder Chronic bilateral low back pain without sciatica Gastroesophageal reflux disease without esophagitis Esophageal reflux Immunodeficiency due to conditions classified elsewhere ([facility]) Obstructive sleep apnea Obstructive sleep apnea (adult) (pediatric) Generalized abdominal pain- Primary Abdominal pain, generalized Early satiety 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 Bile leak Unspecified disorder of biliary tract Type 2 diabetes mellitus with hyperglycemia, without long-term current use of insulin ([facility]) Medicare annual wellness visit, subsequent- Primary Type 2 diabetes mellitus with hyperglycemia, without long-term current use of insulin ([facility]) Type 2 diabetes mellitus with hyperglycemia, without long-term current use of insulin ([facility])- Primary Major depressive disorder, recurrent episode, mild Major depressive disorder, recurrent episode, mild Generalized anxiety disorder Generalized anxiety disorder Migraine without aura and without status migrainosus, not intractable Seasonal allergic rhinitis due to pollen Class 1 obesity due to excess calories with serious comorbidity and body mass index (BMI) of 34.0 to 34.9 in adult Gastroesophageal reflux disease without esophagitis Esophageal reflux Obstructive sleep apnea Obstructive sleep apnea (adult) (pediatric) Stage 3a chronic kidney disease (CKD) ([facility]) Screening PSA (prostate specific antigen) Special screening for malignant neoplasm of prostate Encounter for long-term (current) use of medications Encounter for long-term (current) use of other medications History of colon polyps Type 2 diabetes mellitus with hyperglycemia, without long-term current use of insulin ([facility])- Primary Major depressive disorder, recurrent episode, mild Major depressive disorder, recurrent episode, mild Generalized anxiety disorder Generalized anxiety disorder Migraine without aura and without status migrainosus, not intractable Irritable bowel syndrome with diarrhea Irritable bowel syndrome Gastroesophageal reflux disease without esophagitis Esophageal reflux Colon cancer screening Special screening for malignant neoplasms, colon Degeneration of intervertebral disc of lumbar region without discogenic back pain or lower extremity pain Herpes zoster without complication- Primary Class 2 severe obesity due to excess calories with serious comorbidity and body mass index (BMI) of35.0 to 35.9 in adult ([facility]) Gastro-esophageal reflux disease without esophagitis Anxiety Anxiety state, unspecified documented in this encounter [facility] HealthcareEvaluation note* Diagnosis Onset Date Resolution Status Admit Date Class 2 severe obesity due to excess flo ories with serious comorbidity and acuteOctober 2024 10:56amGastroesophageal reflux disease without esophagitisacuteOctober 2024 10:56amGeneralized anxiety disorderacute November 10, 2024 10:56amMajor depressive disorder, recurrent episode, mildacute November 10, 2024 10:56amMigraine without aura or status migrainosusacuteOctober 2024 10:56amObstructive sleep apneaacuteOctober 2024 10:56amType 2 diabetes mellitus with hyperglycemia, without long-term current useacuteOctober 2024 10:56am [facility] Work Phone: Evaluation note* Diagnosis Onset Date Resolution Status Admit Date Class 2 severe obesity due to excess flo ories with serious comorbidity and acuteOctober 2024 10:56amDiarrhea due to drugacuteOctober 2024 10:56am Gastroesophageal reflux disease without esophagitisacuteOctober 2024 10:56amGeneralized anxiety disorderacuteOctober 2024 10:56amMajor depressive disorder, recurrent episode, mildacuteOctober 2024 10:56am Migraine without aura or status migrainosusacuteOctober 2024 10:56am Obstructive sleep apneaacuteOctober 2024 10:56amRight carpal tunnel syndromeacuteOctober 2024 10:56amType 2 diabetes mellitus with hyperglycemia, without long-term current useacuteOctober 2024 10:56am [facility] Work Phone: Evaluation note* Diagnosis Type 2 diabetes mellitus with hyperglycemia, without long-term current use of insulin ([facility])- Primary Major depressive disorder, recurrent episode, mild Generalized anxiety disorder Memory loss Bilateral leg edema Edema Irritable bowel syndrome with diarrhea Irritable bowel syndrome Duodenitis Epigastric pain Abdominal pain, epigastric Migraine without aura and without status migrainosus, not intractable Morbid (severe) obesity due to excess calories ([facility]) Type 2 diabetes mellitus with stage 3a chronic kidney disease, without long-term current use of insulin ([facility]) Type 2 diabetes mellitus with hyperglycemia, without long-term current use of insulin ([facility])- Primary Major depressive disorder, recurrent episode, mild Generalized anxiety disorder Migraine without aura and without status migrainosus, not intractable Irritable bowel syndrome with diarrhea Irritable bowel syndrome Duodenitis Morbid (severe) obesity due to excess calories ([facility]) Type 2 diabetes mellitus with stage 3a chronic kidney disease, without long-term current use of insulin ([facility]) Chronic kidney disease, stage 3a (N18.31) Type 2 diabetes mellitus with hyperglycemia, without long-term current use of insulin ([facility])- Primary Migraine without aura and without status migrainosus, not intractable Major depressive disorder, recurrent episode, mild Generalized anxiety disorder Chronic bilateral low back pain without sciatica Gastroesophageal reflux disease without esophagitis Esophageal reflux Immunodeficiency due to conditions classified elsewhere ([facility]) Obstructive sleep apnea Obstructive sleep apnea (adult) (pediatric) Generalized abdominal pain- Primary Abdominal pain, generalized Early satiety 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 Bile leak Unspecified disorder of biliary tract Type 2 diabetes mellitus with hyperglycemia, without long-term current use of insulin ([facility]) Medicare annual wellness visit, subsequent- Primary Type 2 diabetes mellitus with hyperglycemia, without long-term current use of insulin ([facility]) Type 2 diabetes mellitus with hyperglycemia, without long-term current use of insulin ([facility])- Primary Major depressive disorder, recurrent episode, mild Generalized anxiety disorder Migraine without aura and without status migrainosus, not intractable Seasonal allergic rhinitis due to pollen Class 1 obesity due to excess calories with serious comorbidity and body mass index (BMI) of 34.0 to 34.9 in adult Gastroesophageal reflux disease without esophagitis Esophageal reflux Obstructive sleep apnea Obstructive sleep apnea (adult) (pediatric) Stage 3a chronic kidney disease (CKD) ([facility]) Screening PSA (prostate specific antigen) Special screening for malignant neoplasm of prostate Encounter for long-term (current) use of medications Encounter for long-term (current) use of other medications History of colon polyps Type 2 diabetes mellitus with hyperglycemia, without long-term current use of insulin (HCC)- Primary Major depressive disorder, recurrent episode, mild Generalized anxiety disorder Migraine without aura and without status migrainosus, not intractable Irritable bowel syndrome with diarrhea Irritable bowel syndrome Gastroesophageal reflux disease without esophagitis Esophageal reflux Colon cancer screening Special screening for malignant neoplasms, colon Degeneration of intervertebral disc of lumbar region without discogenic back pain or lower extremity pain Herpes zoster without complication- Primary Class 2 severe obesity due to excess calories with serious comorbidity and body mass index (BMI) of35.0 to 35.9 in adult Gastro-esophageal reflux disease without esophagitis Numbness and tingling in right hand Disturbance of skin sensation documented in this encounter [facility] HealthcareHospital Discharge instructionsNot on filedocumented in this encounterProMedica [facility] SystemHospital Discharge instructionsAmbulatory Orders * Referral to Orthopedic Surgery Time Frame: 11/10/24, Location: [facility] Work Phone: InstructionsNot on filedocumented in this encounter [facility]ructionsNot on filedocumented in this encounter [facility] SystemInstructionsNot on filedocumented in this encounter [facility]Not on filedocumented in this encounter [facility]ructionsNot on filedocumented in this encounter [facility] SystemInstructionsNot on filedocumented in this encounter [facility] SystemReason for referral (narrative)* Misc (Routine) - Pending ReviewSpecialtyDiagnoses / ProceduresReferred By ContactReferred To Contact Procedures Discharge Follow-Up Javier Salvador MD [address] [place] [address], [address] [place] [address] Phone: tel: fax: Referral IDStatusReasonStart DateExpiration DateVisits RequestedVisits [id number] * Misc (Routine) - Pending ReviewSpecialtyDiagnoses / ProceduresReferred By ContactReferred To Contact Procedures Drain care (specify) [place] [address] [place] [address], [address] [place] [address] Phone: tel: fax: Referral IDStatusReasonStart DateExpiration DateVisits RequestedVisits [id number] * Misc (Routine) - Pending ReviewSpecialtyDiagnoses / ProceduresReferred By ContactReferred To Contact Procedures No dressing needed Javier Salvador MD [address] [place] [address], [address] [place] [address] Phone: tel: fax: Referral IDStatusReasonStart DateExpiration DateVisits RequestedVisits [id number] * Misc (Routine) - Pending ReviewSpecialtyDiagnoses / ProceduresReferred By ContactReferred To Contact Procedures Hygiene Javier Salvador MD [address] [place] [address] Phone: tel: fax: Referral IDStatusReasonStart DateExpiration DateVisits RequestedVisits [id number] * Misc (Routine) - Pending ReviewSpecialtyDiagnoses / ProceduresReferred By ContactReferred To Contact Procedures Adult diet Javier Salvador MD [address] [place] [address], [address] [place] [address] Phone: tel: fax: Referral IDStatusReasonStart DateExpiration DateVisits RequestedVisits [id number] * Misc (Routine) - Pending ReviewSpecialtyDiagnoses / ProceduresReferred By ContactReferred To Contact Procedures Discharge Follow-Up Ena Paz MD [address] [facility], [address] [place] [address] Phone: tel: fax: Referral IDStatusReasonStart DateExpiration DateVisits RequestedVisits [id number] * Misc (Routine) - Pending ReviewSpecialtyDiagnoses / ProceduresReferred By ContactReferred To Contact Procedures No dressing needed Ena Paz MD [address] [facility], [address] [place] [address] Phone: tel: fax: Referral IDStatusReasonStart DateExpiration DateVisits RequestedVisits [id number] * Misc (Routine) - Pending ReviewSpecialtyDiagnoses / ProceduresReferred By ContactReferred To Contact Procedures Hygiene Ena Paz MD [facility], [address] [place] [address] Phone: tel: fax: Referral IDStatusReasonStart DateExpiration DateVisits RequestedVisits [id number] * Misc (Routine) - Pending ReviewSpecialtyDiagnoses / ProceduresReferred By ContactReferred To Contact Procedures Adult diet Ena Paz MD [address] [facility], [address] [place] [address] Phone: tel: fax: Referral IDStatusReasonStmulberry DateExpiration DateVisits RequestedVisits [id number]/ [facility] HospitalReason for referral (narrative)No reason for referral information availableSamaritan Hospital Work Phone: Reason for visit Narrative* Auth/Cert (Routine) SpecialtyDiagnoses / ProceduresReferred By ContactReferred To Contact Diagnoses Bile leak Preop cardiovascular exam Bile leak Charlene Smyth MD [address] [facility], [address] [place] [address] Phone: tel: fax: Referral IDStatusReasonStart DateExpiration DateVisits RequestedVisits [id number] [facility] Summary Purpose Family History No Family History Records FoundNo Family History Records FoundNo Family History Records FoundNo Family History Records FoundNo Family History Records FoundNo Family History Records FoundNo Family History Records FoundNo Family History Records Found Advance Directives Date ActivatedDate QwmwmapgnjyPdetfaqv21/11/2024 4:32 PMDate ActivatedDate YqqikmfsuefReadqzpq06/16/2024 3:05 AMDate ActivatedDate InactivatedComments 11/20/2023 4:32 PM10 2:28 AMDate ActivatedDate InactivatedComments 11/25/2023 3:05 AM11/28/2023 2:40 PMDate ActivatedDate InactivatedComments 11/20/2023 4:32 PM10 2:28 AM Advance Directive Response Recorded Date/ Time Advance Directives No October 7:55am Reason for Referral SpecialtyDiagnoses / ProceduresReferred By ContactReferred To ContactRadiology Diagnoses Generalized abdominal pain Procedures CT abdomen pelvis w and wo IV contrast Davion Pritchard MD [address] [place] [address] [place] [address] Referral IDStatusReasonStart DateExpiration DateVisits RequestedVisits [id number]/[id number] Chief Complaint and Reason for Visit Chief Complaint Admit Date Established Patient November 10, 2024 10 :56am Reason for Visit Admit Date Class 2 severe obesity due t o excess calories with serious comorbidity and November 10, 2024 10:56am Gastroesophageal reflux disease without esophagitis November 10, 2024 10:56am Generalized anxiety disorder November 10:56am Major depressive disorder, recurrent epi sode, mild November 10, 2024 10:56am Migraine without aura or status migraino srinivasa November 10, 2024 10:56am Obstructive sleep apnea November 10 10:56am Type 2 diabetes mellitus wit h hyperglycemia, without long-term current use November 10, 2024 10:56am Reason for Visit Admit Date Class 2 severe obesity due t o excess calories with serious comorbidity and November 10, 2024 10:56am Diarrhea due to drug November 10, 2024 1 0:56am Gastroesophageal reflux disease without esophagitis November 10, 2024 10:56am Generalized anxiety disorder November 10:56am Major depressive disorder, recurrent epi sode, mild November 10, 2024 10:56am Migraine without aura or status migraino srinivasa November 10, 2024 10:56am Obstructive sleep apnea November 10 10:56am Right carpal tunnel syndrome November 10:56am Type 2 diabetes mellitus wit h hyperglycemia, without long-term current use November 10, 2024 10:56am Chief Complaint Admit Date Established Patient November 10, 2024 10 :56am 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 December 01, 2024 2:03pm Reason for Visit Admit Date Class 2 severe obesity due t o excess calories with serious comorbidity and November 10, 2024 10:56am Diarrhea due to drug November 10, 2024 1 0:56am Gastroesophageal reflux disease without esophagitis November 10, 2024 10:56am Generalized anxiety disorder November 10:56am Major depressive disorder, recurrent epi sode, mild November 10, 2024 10:56am Migraine without aura or status migraino srinivasa November 10, 2024 10:56am Obstructive sleep apnea November 10 10:56am Right carpal tunnel syndrome November 10:56am Type 2 diabetes mellitus wit h hyperglycemia, without long-term current use November 10, 2024 10:56am Polyneuropathy December 01, 2024 2 :03pm Right carpal tunnel syndrome November 2:03pm Additional Source Comments (unrecognized sect ion and content) No Status Records FoundNo Status Records FoundNo Status Records FoundNo Status Records FoundNo Status Records FoundNo Status Records FoundNo Status Records FoundNo Status Records Found INFORMATION SOURCE (unrecogn ized section and content) DATE CREATED AUTHOR 08/04/[address] [facility] DATE CREATED AUTHOR AUTHOR'S ORGANIZ ATION 08/28/2021 [facility] DATE CREATED AUTHOR AUTHOR'S ORGANIZ ATION 01/12/2024 [facility] DATE CREATED AUTHOR AUTHOR'S ORGANIZ ATION 01/22/2024 [facility] DATE CREATED AUTHOR AUTHOR'S ORGANIZ ATION 03/27/[address] [facility] DATE CREATED AUTHOR AUTHOR'S ORGANIZ ATION 05/29/2024 [facility] DATE CREATED AUTHOR AUTHOR'S ORGANIZ ATION 07/23/2024 [facility] DATE CREATED AUTHOR AUTHOR'S ORGANIZ ATION 11/26/2024 [facility] EPIC Reason for Visit (unrecogniz ed section and content) ReasonOnset DateCommentsMed [id number]-upSurgical f/u ReasonOnset DateCommentsMed [id number] Annual Wellness Visit InitialwellnessReasonCommentsMed RefillReasonCommentsFollow-up3 mBack painHeadacheReasonCommentsAbdominal PainStomach painReasonOnset Date CommentsMed [id number] mAando Capps 64yo. Patient presents for nail care. BS 100-[address] Pritchard 01/21/2024 SS12 ReasonOnset DateCommentsNEW PATIENT YCAMRALB58/13/2024easonCommentsAbdominal PainSpecialtyDiagnoses / ProceduresReferred By ContactReferred To Contact Diagnoses Fistula of gallbladder Duodenal fistula Epigastric pain Hyperglycemia Class 3 severe obesity due to excess calories with body mass index (BMI) of 40.0 to 44.9 in adult, unspecified whether serious comorbidity present ([facility]) Jose Maria Block MD [address], [address] [place] [address] Phone: tel: fax: Referral IDStatusReasonStart DateExpiration DateVisits RequestedVisits [id number] VISITDAVINCI ROSSANA 11/23/[address] COOPER, ERCP DONE ON 11/26/23 AT TTHReasonCommentsPost-op1 month follow up, post op removal of bile duct ricrpVcbwmlNhvmthvsRpwthi-plNwerztNitmtxtjYgxcrq-vy3cGA ProblemUpset stomach,DepressionReasonCommentsFollow-upBlisterChest and right arm/handReasonOnset DateCommentsMed Qlkbpd0009/20/2024ReasonCommentsPain Care Teams (unrecognized sec tion and content) Team MemberRelationshipSpecialtyStart DateEnd Date Davion Pritchard MD [address] [place] [address] PCP - Generalmily Medicine03/02/23Team MemberRelationshipSpecialtyStart DateEnd Date Davion Pritchard MD [address] [place] [address] PCP - Generalmi Medicine03/02/23Team MemberRelationshipSpecialtyStart DateEnd Date Davion Pritchard MD [address] [place] [address] PCP - GeneralFamily Medicine03/02/23Team MemberRelationshipSpecialtyStart DateEnd Date Davion Pritchard MD [address] [place] [address] PCP - GeneralFamily Medicine03/02/23Team MemberRelationshipSpecialtyStart DateEnd Date Davion Pritchard MD [address] [place] [address] PCP - Generalmily Medicine03/02/23 Lynnette Pearson RN [address] [place] [place] [address] [facility]01/11/24Te MemberRelationshipSpecialtyStart Date End Date Davion Pritchard MD [address] [place] [address] [facility]03/02/23 Lynnette Pearson RN [address] [place] [address] Registered NurseU[facility]01/11/24Te MemberRelationshipSpecialtyStart Date End Date Davion Pritchard MD [address] [place] [address] PCP - Generalmily Medicine03/02/23Team MemberRelationshipSpecialtyStart DateEnd Date Davion Pritchard MD [address] [place] [address] PCP - GeneralFamily Medicine03/02/23 Lynnette Pearson RN [address] [place] [address] Registered NurseFamily Xndejktt73/2/24Team MemberRelationshipSpecialtyStart Date End Date Davion Pritchard MD [address] [place] [address] PCP - GeneralFamily Medicine03/02/23Team MemberRelationshipSpecialtyStart DateEnd Date Davion Pritchard MD [address] [place] [address] PCP - GeneralFamily Medicine03/02/23Team MemberRelationshipSpecialtyStart DateEnd Date Davion Pritchard MD [address] [place] [address] PCP - GeneralFamily Medicine03/02/23Team MemberRelationshipSpecialtyStart DateEnd Date Davion Pritchard MD [address] [place] [address] PCP - GeneralFamily Medicine03/02/23Team MemberRelationshipSpecialtyStart DateEnd Date Davion Pritchard MD [address] [place] [address] PCP - GeneralFamily Medicine03/02/23 Lynnette Pearson RN [address] [place] [address] Registered NurseFamily Afkqnrfb74/2/24Team MemberRelationshipSpecialtyStart Date End Date Davion Pritchard MD [address] [place] [address] PCP - GeneralFamily Medicine03/02/23 Lynnette Pearson, RN [address] [place] [address] [place] [address] Registered [facility] Asqsjyxd97/2/24Team MemberRelationshipSpecialtyStart Date End Date Davion Pritchard MD [address] [facility] [place] [address] PCP - GeneralFamily Rzyqikoq81/4/22Team MemberRelationshipSpecialtyStart DateEnd Date Davion Pritchard MD [address] [place] [address] PCP - GeneralFamily Rxbxcgxx76/11/24Team MemberRelationshipSpecialtyStart Date End Date Davion Pritchard MD [address] [place] [address] PCP - Generalmily Mjdyuyqg17/11/24Team MemberRelationshipSpecialtyStart Date End Date Davion Pritchard MD [address] [place] [address] PCP - Generalmily Pzrzahku96/11/24Team MemberRelationshipSpecialtyStart Date End Date Davion Pritchard MD [address] [place] [address] PCP - GeneralFamily Umgyifxm63/11/24Team MemberRelationshipSpecialtyStart Date End Date Davion Pritchard MD [address] [place] [address] PCP - Generalmily Xfrhpgxl70/11/24Team MemberRelationshipSpecialtyStart Date End Date Davion Pritchard MD [address] [place] [address] [facility] Hngybmea39/11/24Team MemberRelationshipSpecialtyStart Date End Date Davion Pritchard MD [address] [place] [address] PCP - [facility] Medicine03/02/23 Davion Pritchard MD [address] [place] [address] PCP - [facility]03/18/24 Lynnette Pearson RN [facility] [place] [address] Registered [facility]01/11/24Te MemberRelationshipSpecialtyStart Date End Date Davion Pritchard MD [address] [place] [address] PCP - [facility]03/02/23 Davion Pritchard MD [address] [place] [address] [facility]03/18/24 Lynnette Pearson RN [address] [facility] [place] [address] Registered Nurse[facility]01/11/24Te MemberRelationshipSpecialtyStart Date End Date Davion Pritchard MD [address] [place] [address] [facility] - [facility]03/02/23 Davion Pritchard MD [address] [place] [address] PCP - [facility], [facility]03/18/24 Lynnette Pearson RN [facility] [place] [address] [facility]01/11/24Team MemberRelationshipSpecialtyStart Date End Date Davion Pritchard MD [address] [place] [address] [facility]11/20/23Team MemberRelationshipSpecialtyStart Date End Date Davion Pritchard MD [address] [place] [address] PCP - [facility]03/02/23 Davion Pritchard MD [address] [place] [address] [facility] - [facility], [facility]03/18/24 Lynnette Pearson RN [address] [place] [address] [facility]01/11/24Team MemberRelationshipSpecialtyStart Date End Date Davion Pritchard MD [address] [place] [address] [facility]03/02/23 Davion Pritchard MD [address] [place] [address] [facility]03/18/24 Lynnette Pearson, RN [address] [place] [place] [address] [facility]01/11/24Te MemberRelationshipSpecialtyStart Date End Date Davion Pritchard MD [address] [place] [address] [facility]03/02/23 Davion Pritchard MD [address] [place] [address] [facility]03/18/24 Lynnette Pearson RN [address] [place] [place] [address] [facility]01/11/24Te MemberRelationshipSpecialtyStart Date End Date Davion Pritchard MD [address] [place] [address] [facility]03/02/23 Davion Pritchard MD [address] [place] [address] [facility]03/18/24Te MemberRelationshipSpecialtyStart DateEnd Date Davion Pritchard MD [address] [place] [address] [facility]03/02/23 Davion Pritchard MD [address] [place] [address] [facility]03/18/24Team MemberRelationshipSpecialtyStart DateEnd Date Davion Pritchard MD [address] [place] [address] PCP - [facility]03/02/23 Davion Pritchard MD [address] [place] [address] [facility]03/18/24Team MemberRelationshipSpecialtyStart DateEnd Date Davion Pritchard MD [address] [place] [address] [facility]03/02/23 Davion Pritchard MD [address] [place] [address] [facility]03/18/24 Team Status: Active Member Role Status Dates Davion Pritchard MD Primary Care Provider Active Team Status: Inactive Member Role Status Dates Davion Pritchard MD Primary Care Provider Active S tart: November 10, 2024 End: November 10, 2024[facility] JAVAD Pritchardttending ProviderActiveStart: November 10, 2024 End: November 10, 2024Team MemberRelationshipSpecialtyStart DateEnd Date Davion Pritchard MD [address] [place] [address] [facility]03/18/24 Davion Pritchrad MD [address] [place] [address] PCP [facility]11/24/24Team MemberRelationshipSpecialtyStart Date End Date Davion Pritchard MD [address] [place] [address] PCP - [facility]03/18/24 Davion Pritchard MD [address] [place] [address] [facility]CP - [facility] Pfeldchz16/16/25 Team Status: Active Member Role/Relationship Status Dates Davion Pritchard MD Primary Care Provider Active Team Status: Inactive Member Role/Relationship Status Dates Davion Pritchard MD Primary Care Provider Active S tart: November 10, 2024 End: November 10, 2024Mar JAVAD Pritchardttjhonatan ProviderActiveStart: November 10, 2024 End: November 10, 2024 Team Status: Inactive Member Role/Relationship Status Dates Davion Pritchard MD Primary Care Provider Active S tart: December 01, 2024 End: December 01hrkd Palacios DOAttjhonatan ProviderActiveStart: December 01, 2024 End: December 01, 2024 Scheduled Active and Recently Administ ered Medications (unrecognized section and content) Medication Order acetaminophen (TYLENOL EXTRA STRENGTH) tablet 1,000 mg 1,000 mg, oral, Every 6 hours scheduled, First dose (after last modification) on Thu11/24/23 at 1200, [Warning: Total Acetaminophen not to exceed more than 4 grams (4000 mg) in 24 hours] * 1130 (Given - Provider: Lv Domingo, BIPIN) * 1746 (Given - Provider: Ignacia Diaz, BIPIN) * 2341 (Given - Provider: Nidia Estrella RN) * 0600 (Due) * 1200 (Due) * 1800 (Due) cefTRIAXone (ROCEPHIN) IVPB 2000 mg/50 mL in iso-osmotic dextrose (40 mg/mL premix) 2,000 mg, intravenous, at 100 mL/hr, Administer over 30 Minutes, Every 24 hours, First dose on Thu11/22/23 at 1300, Look-alike/sound-alike medication - verify indication for use. Do not co-administer with calcium-containing solutions such as Lactated Ringers., Indication: Intra-abdominal * 1249 (New Bag - Provider: Hannah Hodge RN) * 1319 (Stop Bag - Provider: Hannah Hodge RN) * 1334 ([facility] Hold - Provider: Automatic Transfer Provider - Reason: Patient not available) * 1806 ([facility] Unhold - Provider: Automatic Transfer Provider) * 1301 (New Bag - Provider: Ignacia Diaz RN) * 1331 (Stop Bag - Provider: Ignacia Diaz RN) * 1300 (Due) FLUoxetine (PROzac) capsule 20 mg 20 mg, oral, Daily, First dose on Thu11/20/23 at 1800, Look-alike/sound-alike medication - verify indication for use. * 0751 (Given - Provider: Hannah Hodge RN) * 1334 ([facility] Hold - Provider: Automatic Transfer Provider - Reason: Patient not available) * 1806 ([facility] Unhold - Provider: Automatic Transfer Provider) * 0855 (Given - Provider: Lv Domingo, BIPIN) * 0900 (Due) indocyanine green (IC-GREEN) injection 5 mg (COMPLETED) 5 mg, intravenous, Once, On Thu11/23/23 at 1315, For 1 dose, Pre-op * 1337 (Given - Provider: Maria Luisa Cates RN) insulin glargine (LANTUS, SEMGLEE) injection pen 10 Units 10 Units, subcutaneous, Daily, First dose on Thu11/21/23 at 1300, Look-alike/sound-alike medication - verify indication for use. Prime with 2 units of insulin prior to administration. Basal (long acting) insulin for subcutaneous administration only. Do not mix with any other insulin. Pre-filled pens stable 28 days at room temperature. * 0900 (Hold - Provider: Hannah Hodge RN - Reason: NPO - Comment: held per Cleo GERMAN) * 1334 ([facility] Hold - Provider: Automatic Transfer Provider - Reason: Patient not available) * 1806 ([facility] Unhold - Provider: Automatic Transfer Provider) * 0910 (Given - Provider: Lv Domingo, BIPIN) * 0900 (Due) insulin lispro (HumaLOG) injection 3-18 Units 3-18 Units, subcutaneous, 4 times daily with meals and nightly, First dose on Thu11/20/23 at 1800,Daytime hyperglycemia dosing. For blood glucose 151-200 mg/dL, give 3 units. For blood glucose 201-250 mg/dL, give 6 units. For blood glucose 251-300 mg/dL, give 9 units. For blood glucose 301-350 mg/dL, give 12 units. For blood glucose 351-400 mg/dL, give 15 units. For blood glucose 401-450 mg/dL,give 18 units. Give even if NPO or meals skipped. Do NOT give more often then every 4 hours when NPO. Notify prescriber if blood glucose greater than 450 mg/dL. Look-alike/sound-alike medication - verify indication for use. Prime with 2 units of insulin prior to administration. Prandial/supplemental Insulin. Pre- filled pens stable 28 days at room temperature. Insulin lispro should be administeredwithin 15 minutes before or immediately after a meal. * 0800 (Not Given - Provider: Hannah Hodge RN - Reason: NPO - Comment: clarified hold with Cleo GERMAN) * 1200 (Not Given - Provider: Hannah Hodge RN - Reason: NPO) * 1334 (MAR Hold - Provider: Automatic Transfer Provider - Reason: Patient not available) * 1700 (Dose Auto Held - Provider: Automatic Transfer Provider) * 1806 (MAR Unhold - Provider: Automatic Transfer Provider) * 2200 (Not Given - Provider: Nidia Estrella RN - Reason: Order parameters not met - Comment: [id number]) * 0910 (Given - Provider: Lv Domingo RN) * 1138 (Given - Provider: Lv Domingo RN) * 1700 (Not Given - Provider: Ignacia Diaz RN - Reason: Contraindicated) * 2200 (Not Given - Provider: Nidia Estrella RN - Reason: Order parameters not met) * 0800 (Due) * 1200 (Due) * 1700 (Due) * 2200 (Due) metoclopramide (REGLAN) tablet 10 mg (CANCELED) 10 mg, oral, 4 times daily, First dose on Thu11/20/23 at 1800 * 0751 (Given - Provider: Hannah Hodge RN) metoprolol tartrate (LOPRESSOR) tablet 25 mg 25 mg, oral, 2 times daily, First dose on Thu11/20/23 at 2100, Hold for systolic less then 100 or HR less then 60 Look-alike/sound-alike medication - verify indication for use. * 0754 (Given - Provider: Hannah Hodge RN) * 1334 (MAR Hold - Provider: Automatic Transfer Provider - Reason: Patient not available) * 1806 (APR Unhold - Provider: Automatic Transfer Provider) * 2020 (Given - Provider: Nidia Estrella, BIPIN) * 0856 (Given - Provider: Lv Domingo RN) * 2144 (Given - Provider: Nidia Estrella, BIPIN) * 0900 (Due) * 2100 (Due) metroNIDAZOLE (FLAGYL) IVPB 500 mg/100 mL in iso-osmotic sodium chloride (5 mg/mL premix) 500 mg, intravenous, at 100 mL/hr, Administer over 60 Minutes, Every 12 hours, First dose on Thu11/22/23 at 1400, Look-alike/sound-alike medication - verify indication for use., Indication: Intra-abdominal * 0112 (New Bag - Provider: Ailyn Barron RN) * 0212 (Stop Bag - Provider: Ailyn Barron RN) * 1334 (MAR Hold - Provider: Automatic Transfer Provider - Reason: Patient not available) * 1400 (Dose Auto Held - Provider: Automatic Transfer Provider) * 1806 (MAR Unhold - Provider: Automatic Transfer Provider) * 0158 (New Bag - Provider: Nidia Estrella, BIPIN) * 0210 (Rate/Dose Verify - Provider: Ignacia Diaz, RN) * 0258 (Stop Bag - Provider: Nidia Estrella RN) * 1528 (New Bag - Provider: Ignacia Diaz, RN) * 1616 (Rate/Dose Verify - Provider: Ignacia Diaz, RN) * 1628 (Stop Bag - Provider: Ignacia Diaz, RN) * 0200 (Due) * 1400 (Due) metroNIDAZOLE (FLAGYL) IVPB 500 mg/100 mL in iso-osmotic sodium chloride (5 mg/mL premix) (COMPLETED) 500 mg, intravenous, at 100 mL/hr, Administer over 60 Minutes, Once, On Thu11/23/23 at 1415, For 1dose, Pre-op, Look-alike/sound-alike medication - verify indication for use., Indication: Surgical prophylaxis * 1503 (Given - Provider: Molly Vidal APRN-SOUNDSCRIBER MECHANIC) pantoprazole (PROTONIX) injection 40 mg 40 mg, intravenous, Every 24 hours scheduled, First dose on Thu11/22/23 at 1300, Look-alike/sound-alike medication - verify indication for use., Indication: Other (JEISON) * 0756 (Given - Provider: Hannah Hodge RN) * 1334 (MAR Hold - Provider: Automatic Transfer Provider - Reason: Patient not available) * 1806 (MAR Unhold - Provider: Automatic Transfer Provider) * 0855 (Given - Provider: Lv Domingo, BIPIN) * 0900 (Due) topiramate (TOPAMAX) tablet 25 mg 25 mg, oral, 2 times daily, First dose on Thu11/20/23 at 2100, Look-alike/sound-alike medication -verify indication for use. * 0756 (Given - Provider: Hannah Hodge RN) * 1334 (MAR Hold - Provider: Automatic Transfer Provider - Reason: Patient not available) * 1806 (MAR Unhold - Provider: Automatic Transfer Provider) * 202 (Given - Provider: Nidia Estrella, BIPIN) * 1005 (Given - Provider: Lv Domingo, BIPIN) * 2144 (Given - Provider: Nidia Estrella, BIPIN) * 0900 (Due) * 2100 (Due) Medication Order11/22//// sodium chloride 0.9 % infusion () 75 mL/hr, intravenous, Continuous, Starting on Thu11/22/23 at 1015, For 1 day * 0057 (New Bag - Provider: Debbie Jolly, BIPIN) * 0807 (New Bag - Provider: Hannah Hogde, RN) * 1108 (Stop Bag - Provider: Hannah Hodge RN) sodium chloride 0.9 % infusion (CANCELED) 75 mL/hr, intravenous, Continuous, Starting on Thu11/23/23 at 1100, For 1 day * 1106 (New Bag - Provider: Hannah Hodge, RN) * 1322 (Stop Bag - Provider: Ignacia Diaz RN) * 1334 (MAR Hold - Provider: Automatic Transfer Provider - Reason: Patient not available) * 1806 (APR Unhold - Provider: Automatic Transfer Provider) * 1810 (New Bag - Provider: Hannah Hodge RN) * 2229 (Paused - Provider: Ignacia Diaz, BIPIN) * 2235 (Restarted - Provider: Ignacia Diaz RN) * 0005 (Paused - Provider: Ignacia Diaz RN) * 0005 (Paused - Provider: Ignacia Diaz, BIPIN) * 0207 (Restarted - Provider: Ignacia Diaz RN) * 0210 (Paused - Provider: Ignacia Diaz RN) * 0310 (Restarted - Provider: Ignacia Diaz, BIPIN) * 0325 (Stop Bag - Provider: Ignacia Diaz, BIPIN) sodium chloride 0.9 % infusion 75 mL/hr, intravenous, Continuous, Starting on Thu11/24/23 at 0900, For 1 day * 0915 (New Bag - Provider: Lv Domingo RN) * 1301 (Paused - Provider: Ignacia Diaz RN) * 1331 (Restarted - Provider: Ignacia Diaz RN) * 1528 (Stop Bag - Provider: Ignacia Diaz RN) sodium chloride 0.9 % infusion 75 mL/hr, intravenous, Continuous, Starting on Thu11/24/23 at 1000, For 1 day * 1000 (Restarted - Provider: Lv Domingo RN) * 1616 (Rate/Dose Verify - Provider: Ignacia Diaz RN) Medication Order// acetaminophen (TYLENOL) tablet 650 mg (CANCELED) 650 mg, oral, Every 6 hours PRN, mild pain - pain scale 1-3, headaches, temperature greater than 38C, Temperature greater than 38.3 C, Starting on Thu11/20/23 at 1639, [Warning: Total Acetaminophennot to exceed more than 4 grams (4000 mg) in 24 hours] * 0802 (Given - Provider: Hannah Hodge RN - Comment: pt requested tylenol for pain at this time) * 1334 (APR Hold - Provider: Automatic Transfer Provider - Reason: Patient not available) * 1806 (APR Unhold - Provider: Automatic Transfer Provider) BUPivacaine HCl (MARCAINE) 0.5 % (5 mg/mL) injection (CANCELED) As needed, Starting on Thu11/23/23 at 1657, Intra-op * 1657 (Given - Provider: Anahy Cooper MD) calcium gluconate 3,000 mg in sodium chloride 0.9 % 100 mL IVPB 3,000 mg, intravenous, at 43.3 mL/hr, Administer over 3 Hours, As needed, ionized calcium 3.5 to 3.9 mg/dL, Starting on Thu11/20/23 at 1639, IV Administration of calcium via a central or deep vein preferred. Avoid administration in small hand veins VESICANT (RED) * 1334 ([facility] Hold - Provider: Automatic Transfer Provider - Reason: Patient not available) * 1806 ([facility] Unhold - Provider: Automatic Transfer Provider) calcium gluconate IVPB 2000 mg/100 mL (20 mg/mL premix) 4,000 mg, intravenous, at 50 mL/hr, Administer over 4 Hours, As needed, ionized calcium 3.4 mg/dL or less, Starting on Thu11/20/23 at 1639, IV administration of calcium via a central or deep vein ispreferred. Avoid administration in small hand veins. VESICANT (RED) * 1334 ([facility] Hold - Provider: Automatic Transfer Provider - Reason: Patient not available) * 1806 ([facility] Unhold - Provider: Automatic Transfer Provider) calcium gluconate IVPB 2000 mg/100 mL (20 mg/mL premix) 2,000 mg, intravenous, at 50 mL/hr, Administer over 2 Hours, As needed, ionized calcium 4 to 4.3 mg/dL, Starting on Thu11/20/23 at 1639, IV Administration of calcium via a central or deep vein preferred. Avoid administration in small hand veins VESICANT (RED) * 1334 ([facility] Hold - Provider: Automatic Transfer Provider - Reason: Patient not available) * 1806 ([facility] Unhold - Provider: Automatic Transfer Provider) dextrose (GLUTOSE) 40 % gel 15 g 15 g, oral, As needed, low blood sugar, blood glucose less than 70 mg/dL, Starting on Thu11/20/23 at 1639, If patient conscious and taking PO. If blood glucose is not greater than 70 mg/dL after initial treatment, repeat treatment. * 1334 ([facility] Hold - Provider: Automatic Transfer Provider - Reason: Patient not available) * 1806 ([facility] Unhold - Provider: Automatic Transfer Provider) dextrose 5 % (D5W) infusion 100 mL/hr, intravenous, Continuous PRN, blood glucose less than 70 mg/dL, Starting on Thu11/20/23 at 1639, Use immediately following dextrose 50% or glucagon treatment for patients who are unconscious or NPO. Contact prescriber for additional orders. If blood glucose is not greater than 70 mg/dL after initial treatment, repeat treatment. * 1334 ([facility] Hold - Provider: Automatic Transfer Provider - Reason: Patient not available) * 1806 ([facility] Unhold - Provider: Automatic Transfer Provider) dextrose 50 % in water (D50W) 50% solution 25 mL 25 mL, intravenous, As needed, low blood sugar, blood glucose less than 70 mg/dL and unconscious orNPO with IV access, Starting on Thu11/20/23 at 1639, Push over 1-3 minutes STAT. If conscious and not NPO, immediately follow with meal tray or high protein (7 grams) snack if tray not available. IfNPO, initiate 5% dextrose in water at 100 mL/hr and contact prescriber for additional orders. If blood glucose is not greater than 70 mg/dL after initial treatment, repeat treatment. VESICANT (RED) Warning: HYPERTONIC solution. * 1334 ([facility] Hold - Provider: Automatic Transfer Provider - Reason: Patient not available) * 1806 ([facility] Unhold - Provider: Automatic Transfer Provider) glucagon HCL injection 1 mg 1 mg, intramuscular, As needed, low blood sugar, blood glucose less than 70 mg/dL and unconscious or NPO without IV access., Starting on Thu11/20/23 at 1639, If conscious and not NPO, immediately follow with meal tray or high protein (7Grams) snack if tray not available. If NPO, initiate IV 5% Dext lindsey/Water at 100 mL/hr and contact prescriber for additional orders. If blood glucose is not greater than 70 mg/dL after initial treatment, repeat treatment. * 1334 ([facility] Hold - Provider: Automatic Transfer Provider - Reason: Patient not available) * 1806 ([facility] Unhold - Provider: Automatic Transfer Provider) magnesium sulfate IVPB 2000 mg/50 mL in iso-osmotic water (40 mg/mL premix) 2,000 mg, intravenous, at 25 mL/hr, Administer over 120 Minutes, As needed, Magnesium level 1.7 to 1.9 mg/dL, or Ionized Magnesium level 0.45 to 0.5 mmol/L., Starting on Thu11/20/23 at 1639, Recheckmagnesium level 4 hours after infusion complete. With each magnesium result continue the replacement orders as needed. * 0803 (Not Given - Provider: Hannah Hodge RN - Reason: Order parameters not met) * 1334 ([facility] Hold - Provider: Automatic Transfer Provider - Reason: Patient not available) * 1806 ([facility] Unhold - Provider: Automatic Transfer Provider) magnesium sulfate IVPB 4000 mg/100 mL in iso-osmotic water (40 mg/mL premix) 4,000 mg, intravenous, at 25 mL/hr, Administer over 240 Minutes, As needed, Magnesium level 1.6 mg/dL or less, or Ionized Magnesium level 0.44 mmol/L or less, Starting on Thu11/20/23 at 1639, Recheck magnesium level 4 hours after infusion complete. With each magnesium result continue the replacement orders as needed. * 1334 ([facility] Hold - Provider: Automatic Transfer Provider - Reason: Patient not available) * 1806 ([facility] Unhold - Provider: Automatic Transfer Provider) morphine injection 2 mg 2 mg, intravenous, Every 4 hours PRN, PIPP 12 or greater - moderate to severe pain, Starting on Thu11/23/23 at 1126, Look-alike/sound-alike medication - verify indication for use. * 1142 (Given - Provider: Hannah Hodge RN) * 1334 ([facility] Hold - Provider: Automatic Transfer Provider - Reason: Patient not available) * 1806 ([facility] Unhold - Provider: Automatic Transfer Provider) * 0856 (Given - Provider: Lv Domingo, BIPIN) * 2144 (Given - Provider: Nidia Estrella RN) ondansetron (PF) (ZOFRAN) injection 4 mg 4 mg, intravenous, Every 6 hours PRN, nausea, vomiting, Starting on Thu11/20/23 at 1639, Administer over 2-5 minutes. * 1334 ([facility] Hold - Provider: Automatic Transfer Provider - Reason: Patient not available) * 1806 ([facility] Unhold - Provider: Automatic Transfer Provider) potassium chloride (K-TAB,KLOR-CON) CR tablet 30-50 mEq(Linked Group 1) 30-50 mEq, oral, As needed, potassium supplementation, Starting on Thu11/20/23 at 1639, Progress to oral potassium replacement when patient tolerating oral intake. If dose administered, recheck potassium level 4 hours after last dose. For potassium level 3.4 to 3.8 mmol/L and GFR 30 mL/min or greater=30 mEq. For potassium level 3.1 to 3.3 mmol/L and GFR 30 mL/min or greater=40 mEq. For potassiumlevel 3 mmol/L or less and GFR 30 mL/min or greater=50 mEq. Do not crush or chew. * 0752 (Given - Provider: Hannah Hodge RN - Comment: k 3.6) * 1334 ([facility] Hold - Provider: Automatic Transfer Provider - Reason: Patient not available) * 1806 ([facility] Unhold - Provider: Automatic Transfer Provider) potassium chloride (KAYCIEL) 20 mEq/15 mL solution 30-50 mEq(Linked Group 1) 30-50 mEq, oral, As needed, potassium supplementation, Starting on Thu11/20/23 at 1639, Progress to oral potassium replacement when patient tolerating oral intake. If dose administered, recheck potassium level 4 hours after last dose. For potassium level 3.4 to 3.8 mmol/L and GFR 30 mL/min or greater=30 mEq. For potassium level 3.1 to 3.3 mmol/L and GFR 30 mL/min or greater=40 mEq. For potassiumlevel 3 mmol/L or less and GFR 30 mL/min or greater=50 mEq. Must dilute before use - Mix in 3-8 ounces of water or juice before administration When administering in feeding tube, flush before and after per policy and monitor potassium levels * 0752 (See Alternative - Provider: Hannah Hodge RN) * 1334 ([facility] Hold - Provider: Automatic Transfer Provider - Reason: Patient not available) * 1806 ([facility] Unhold - Provider: Automatic Transfer Provider) sod phos di, mono-K phos mono (K-PHOS NEUTRAL) 250 mg tablet 2 tablet(Linked Group 2) 2 tablet, oral, As needed, for phosphorus level 2.3 mg/dL or less., Starting on Thu11/20/23 at 1639, If dose administered, recheck phosphorus level 4 hours after last dose. Look-alike/sound-alike medication - verify indication for use. Give with a full glass of water. * 1334 ([facility] Hold - Provider: Automatic Transfer Provider - Reason: Patient not available) * 1806 ([facility] Unhold - Provider: Automatic Transfer Provider) sodium chloride 0.9 % (bag) (NS) 0.9 % irrigation solution (CANCELED) As needed, Starting on Thu11/23/23 at 1657, Intra-op * 1657 (Given - Provider: Anahy Cooper MD) sodium chloride 0.9 % flush bag 25 mL, intravenous, at 100 mL/hr, Administer over 15 Minutes, As needed, line care, line care afterIVPB administration, Starting on Thu11/20/23 at 1639 * 1334 ([facility] Hold - Provider: Automatic Transfer Provider - Reason: Patient not available) * 1806 ([facility] Unhold - Provider: Automatic Transfer Provider) sodium chloride 0.9 % infusion 20 mL/hr, intravenous, Continuous PRN, to maintain patency of lines, Starting on Thu11/20/23 at 1639 * 1334 ([facility] Hold - Provider: Automatic Transfer Provider - Reason: Patient not available) * 1806 ([facility] Unhold - Provider: Automatic Transfer Provider) sodium phosphate 20 mmol in sodium chloride 0.9 % 100 mL IVPB(Linked Group 2) 20 mmol, intravenous, at 26.7 mL/hr, Administer over 4 Hours, As needed, for phosphorus level 2.3 mg/dL or less., Starting on Thu11/20/23 at 1639, Administer over 4 hours via dedicated line (centralline). If administered, recheck phosphorus level 4 hours after infusion complete. Infuse using central line access. * 1334 ([facility] Hold - Provider: Automatic Transfer Provider - Reason: Patient not available) * 1806 ([facility] Unhold - Provider: Automatic Transfer Provider) sodium phosphate 20 mmol in sodium chloride 0.9 % 250 mL IVPB(Linked Group 2) 20 mmol, intravenous, at 42.8 mL/hr, Administer over 6 Hours, As needed, for phosphorus level 2.3 mg/dL or less, Starting on Thu11/20/23 at 1639, Administer over 6 hours via dedicated line (peripheral line). If administered, recheck phosphorus level 4 hours after infusion complete. * 1334 ([facility] Hold - Provider: Automatic Transfer Provider - Reason: Patient not available) * 1806 ([facility] Unhold - Provider: Automatic Transfer Provider) Order Group 1: potassium chloride (K-TAB,KLOR-CON) CR tablet 30-50 mEqJump to med 30-50 mEq, oral, As needed, potassium supplementation, Starting on Thu11/20/23 at 1639, Progress to oral potassium replacement when patient tolerating oral intake. If dose administered, recheck potassium level 4 hours after last dose. For potassium level 3.4 to 3.8 mmol/L and GFR 30 mL/min or greater=30 mEq. For potassium level 3.1 to 3.3 mmol/L and GFR 30 mL/min or greater=40 mEq. For potassiumlevel 3 mmol/L or less and GFR 30 mL/min or greater=50 mEq. Do not crush or chew. Or potassium chloride (KAYCIEL) 20 mEq/15 mL solution 30-50 mEqJump to med 30-50 mEq, oral, As needed, potassium supplementation, Starting on Thu11/20/23 at 1639, Progress to oral potassium replacement when patient tolerating oral intake. If dose administered, recheck potassium level 4 hours after last dose. For potassium level 3.4 to 3.8 mmol/L and GFR 30 mL/min or greater=30 mEq. For potassium level 3.1 to 3.3 mmol/L and GFR 30 mL/min or greater=40 mEq. For potassiumlevel 3 mmol/L or less and GFR 30 mL/min or greater=50 mEq. Must dilute before use - Mix in 3-8 ounces of water or juice before administration When administering in feeding tube, flush before and after per policy and monitor potassium levels Group 2: sodium phosphate 20 mmol in sodium chloride 0.9 % 250 mL IVPBJump to med 20 mmol, intravenous, at 42.8 mL/hr, Administer over 6 Hours, As needed, for phosphorus level 2.3 mg/dL or less, Starting on Thu11/20/23 at 1639, Administer over 6 hours via dedicated line (peripheral line). If administered, recheck phosphorus level 4 hours after infusion complete. Or sodium phosphate 20 mmol in sodium chloride 0.9 % 100 mL IVPBJump to med 20 mmol, intravenous, at 26.7 mL/hr, Administer over 4 Hours, As needed, for phosphorus level 2.3 mg/dL or less., Starting on Thu11/20/23 at 1639, Administer over 4 hours via dedicated line (centralline). If administered, recheck phosphorus level 4 hours after infusion complete. Infuse using central line access. Or sod phos di, mono-K phos mono (K-PHOS NEUTRAL) 250 mg tablet 2 tabletJump to med 2 tablet, oral, As needed, for phosphorus level 2.3 mg/dL or less., Starting on Thu11/20/23 at 1639, If dose administered, recheck phosphorus level 4 hours after last dose. Look-alike/sound-alike medication - verify indication for use. Give with a full glass of water. Medication Order// acetaminophen (TYLENOL EXTRA STRENGTH) tablet 1,000 mg 1,000 mg, oral, Every 6 hours scheduled, First dose on Thu11/25/23 at 0600 * 0003 (Given - Provider: Heidi Cortez RN) * 0529 (Given - Provider: Heidi Cortez RN) * 1006 ([facility] Hold - Provider: Automatic Transfer Provider - Reason: Patient not available) * 1159 ([facility] Unhold - Provider: Automatic Transfer Provider) * 1323 (Given - Provider: Ai Salvador RN) * 1800 (Not Given - Provider: Ai Salvador RN - Reason: Patient/family refused) * 0013 (Given - Provider: Cleo Rizvi RN) * 0522 (Given - Provider: Cleo Rizvi, BIPIN) * 1234 (Given - Provider: Ai Salvador, BIPIN) * 1800 (Not Given - Provider: Ai Salvador RN - Reason: Patient/family refused) * 0000 (Not Given - Provider: Meredith Voss RN - Reason: Patient/family refused) * 0347 (Given - Provider: Meredith Voss, RN) * 1200 (Due) * 1800 (Due) atorvastatin (LIPITOR) tablet 40 mg 40 mg, oral, Daily, First dose on Thu11/25/23 at 0900, Look-alike/sound-alike medication - verify indication for use. * 1000 (Given - Provider: Ai Salvador RN) * 1006 ([facility] Hold - Provider: Automatic Transfer Provider - Reason: Patient not available) * 1159 ([facility] Unhold - Provider: Automatic Transfer Provider) * 0828 (Given - Provider: Ai Salvador RN) * 0824 (Given - Provider: Miranda Chiang, RN) cefTRIAXone (ROCEPHIN) 2,000 mg in sodium chloride 0.9 % 50 mL IVPB 2,000 mg, intravenous, at 140 mL/hr, Administer over 30 Minutes, Every 24 hours, First dose on Thu11/25/23 at 0900, Look-alike/sound-alike medication - verify indication for use. Do not co-administer with calcium-containing solutions such as Lactated Ringers., Indication: Intra-abdominal * 1006 ([facility] Hold - Provider: Automatic Transfer Provider - Reason: Patient not available) * 1159 ([facility] Unhold - Provider: Automatic Transfer Provider) * 1331 (New Bag - Provider: Ai Salvador RN) * 1401 (Stop Bag - Provider: Ai Salvador RN) * 1244 (New Bag - Provider: Ai Salvador RN) * 1314 (Stop Bag - Provider: Ai Salvador RN) * 0821 (New Bag - Provider: Miranda Chiang, BIPIN) * 0851 (Stop Bag - Provider: Miranda Chiang, BIPIN) FLUoxetine (PROzac) capsule 20 mg 20 mg, oral, Daily, First dose on Thu11/25/23 at 0900, Look-alike/sound-alike medication - verify indication for use. * 1000 (Given - Provider: Ai Salvador RN) * 1006 ([facility] Hold - Provider: Automatic Transfer Provider - Reason: Patient not available) * 1159 ([facility] Unhold - Provider: Automatic Transfer Provider) * 0828 (Given - Provider: Ai Salvador RN) * 0824 (Given - Provider: Miranda Chiang, BIPIN) insulin glargine (LANTUS, SEMGLEE) injection pen 10 Units 10 Units, subcutaneous, 2 times daily, First dose on Thu11/25/23 at 0900, Only hold for blood sugar less than 40 regardless of dietary status. Call MD if held. Do NOT mix with other insulins. Notifyprescriber if blood glucose greater than 400 mg/dL. Look-alike/sound-alike medication - verify indication for use. Prime with 2 units of insulin prior to administration. Basal (long acting) insulin for subcutaneous administration only. Do not mix with any other insulin. Pre-filled pens stable 28 days at room temperature. * 0948 (Given - Provider: Ai Salvador RN) * 1006 ([facility] Hold - Provider: Automatic Transfer Provider - Reason: Patient not available) * 1159 ([facility] Unhold - Provider: Automatic Transfer Provider) * 2026 (Given - Provider: Cleo Rizvi RN) * 0846 (Given - Provider: Ai Salvador RN) * 2022 (Given - Provider: Meredith Voss RN) * 0827 (Given - Provider: Miranda Chiang RN) * 2100 (Due) insulin lispro (HumaLOG) injection 1-4 Units 1-4 Units, subcutaneous, Nightly, First dose on Thu11/26/23 at 2200, Bedtime hyperglycemia dosing.For blood glucose 201-250 mg/dL, give 1 unit. For blood glucose 251-300 mg/dL, give 2 units. For blood glucose 301-350 mg/dL, give 3 units. For blood glucose 351-400 mg/dL, give 4 units. Give even ifNPO or meals skipped. Do NOT give more often than every 4 hours when NPO. Notify prescriber if blood glucose greater than 400 mg/dL. Look-alike/sound-alike medication - verify indication for use. Prime with 2 units of insulin prior to administration. Prandial/supplemental Insulin. Pre-filled pens stable 28 days at room temperature. Insulin lispro should be administered within 15 minutes before orimmediately after a meal. * 215 (Given - Provider: Cleo Rizvi RN) * 2136 (Given - Provider: Meredith Voss RN - Comment: BS [id number]) * 2199 (Due) insulin lispro (HumaLOG) injection 1-5 Units 1-5 Units, subcutaneous, 3 times daily with meals, First dose on Thu11/27/23 at 0800, Daytime hyperglycemia dosing. For blood glucose 151-200 mg/dL, give 1 unit. For blood glucose 201-250 mg/dL, give 2 units. For blood glucose 251-300 mg/dL, give 3 units. For blood glucose 301-350 mg/dL, give 4 units. For blood glucose 351-400 mg/dL, give 5 units. Give even if NPO or meals skipped. Do NOT give more often than every 4 hours when NPO. Notify prescriber if blood glucose greater than 400 mg/dL. Look-alike/sound-alike medication - verify indication for use. Prime with 2 units of insulin prior to administration. Prandial/supplemental Insulin. Pre-filled pens stable 28 days at room temperature. Insulin lispro should be administered within 15 minutes before or immediately after a meal. * 0846 (Given - Provider: Ai Salvador RN) * 1245 (Given - Provider: Ai Salvador RN) * 1700 (Not Given - Provider: Ai Salvador RN - Reason: Patient/family refused) * 0828 (Given - Provider: Miranda Chiang RN) * 1200 (Due) * 1700 (Due) insulin lispro (HumaLOG) injection 2-16 Units (CANCELED) 2-16 Units, subcutaneous, Every 6 hours, First dose on Thu11/25/23 at 0315, Daytime hyperglycemia dosing. For blood glucose 151-180mg/dL, give 2 units. For blood glucose 181-210mg/dL, give 4 units. For blood glucose 211-240mg/dL, give 6 units. For blood glucose 241-270mg/dL, give 8 units. For blood glucose 271- 300mg/dL, give 10 units. For blood glucose 301-350mg/dL, give 12 units For blood glucose 351-400mg/dL, give 16 units For blood glucose >400 call MD Give even if NPO or meals skipped. Do NOT give more often then every 4 hours when NPO. Look-alike/sound-alike medication - verify indication for use. Prime with 2 units of insulin prior to administration. Prandial/supplemental Insulin.Pre- filled pens stable 28 days at room temperature. Insulin lispro should be administered within 15minutes before or immediately after a meal. * 0315 (Not Given - Provider: Heidi Cortez RN - Reason: Order parameters not met - Comment: bs 131) * 0915 (Not Given - Provider: Ai Salvador RN - Reason: Patient/family refused) * 1006 ([facility] Hold - Provider: Automatic Transfer Provider - Reason: Patient not available) * 1159 ([facility] Unhold - Provider: Automatic Transfer Provider) * 1515 (Given - Provider: Ai Salvador, BIPIN) * 2115 (Not Given - Provider: Cleo Rizvi, RN - Reason: Other - Comment: SEE OTHER ORDER) metoprolol tartrate (LOPRESSOR) tablet 25 mg 25 mg, oral, 2 times daily, First dose on Thu11/25/23 at 0900, Look-alike/sound-alike medication -verify indication for use. * 1000 (Given - Provider: Ai Salvador RN) * 1006 ([facility] Hold - Provider: Automatic Transfer Provider - Reason: Patient not available) * 1159 ([facility] Unhold - Provider: Automatic Transfer Provider) * 203 (Given - Provider: Cleo Rizvi, BIPIN) * 0828 (Given - Provider: Ai Salvador RN) * 2019 (Given - Provider: Meredith Voss RN) * 0826 (Given - Provider: Miranda Chiang RN) * 2100 (Due) metroNIDAZOLE (FLAGYL) IVPB 500 mg/100 mL in iso-osmotic sodium chloride (5 mg/mL premix) 500 mg, intravenous, at 100 mL/hr, Administer over 60 Minutes, Every 12 hours, First dose on Thu11/25/23 at 0400, Look-alike/sound-alike medication - verify indication for use., Indication: Intra-abdominal * 0531 (New Bag - Provider: Heidi Cortez, BIPIN) * 0553 (Rate/Dose Verify - Provider: Heidi Cortez RN) * 0631 (Stop Bag - Provider: Heidi Cortez, RN) * 1006 ([facility] Hold - Provider: Automatic Transfer Provider - Reason: Patient not available) * 1159 ([facility] Unhold - Provider: Automatic Transfer Provider) * 1544 (New Bag - Provider: Ai Salvador, BIPIN) * 1644 (Stop Bag - Provider: Ai Salvador, BIPIN) * 0332 (New Bag - Provider: Cleo Rizvi, BIPIN) * 0432 (Stop Bag - Provider: Cleo Rizvi, BIPIN) * 1746 (New Bag - Provider: Ai Salvador, BIPIN) * 1846 (Stop Bag - Provider: Ai Salvador, BIPIN) * 0347 (New Bag - Provider: Meredith Voss RN) * 0447 (Stop Bag - Provider: Meredith Voss RN) * 1600 (Due) pantoprazole (PROTONIX) EC tablet 40 mg (CANCELED) 40 mg, oral, Daily, First dose on Thu11/25/23 at 0600, Look-alike/sound-alike medication - verify indication for use. If patient is receiving enteral feeding, consider alternative PPI or continue IVpantoprazole until the delayed-release tablet can be taken orally, Indication: GERD * 0530 (Given - Provider: Heidi Cortez RN) * 1006 ([facility] Hold - Provider: Automatic Transfer Provider - Reason: Patient not available) * 1159 ([facility] Unhold - Provider: Automatic Transfer Provider) * 0522 (Given - Provider: Cleo Rizvi RN) pantoprazole (PROTONIX) EC tablet 40 mg 40 mg, oral, 2 times daily, First dose (after last modification) on Thu11/27/23 at 1615, Look-alike/sound-alike medication - verify indication for use. If patient is receiving enteral feeding, consider alternative PPI or continue IV pantoprazole until the delayed-release tablet can be taken orally, Indication: GERD * 1747 (Given - Provider: Ai Salvador RN) * 0825 (Given - Provider: Miranda Chiang, BIPIN) * 2100 (Due) sodium chloride 0.9 % flush 3 mL 3 mL, intravenous, Every 12 hours scheduled, First dose on Thu11/25/23 at 0900 * 1000 (Given - Provider: Ai Salvador RN) * 1006 ([facility] Hold - Provider: Automatic Transfer Provider - Reason: Patient not available) * 1159 ([facility] Unhold - Provider: Automatic Transfer Provider) * 2100 (Not Given - Provider: Cleo Rizvi RN - Reason: IV infusing) * 0849 (Given - Provider: Ai Salvador RN) * 2019 (Given - Provider: Meredith Voss, RN) * 0820 (Given - Provider: Miranda Chiang, BIPIN) * 2100 (Due) topiramate (TOPAMAX) tablet 25 mg 25 mg, oral, 2 times daily, First dose on Thu11/25/23 at 0900, Look-alike/sound-alike medication -verify indication for use. * 1000 (Given - Provider: Ai Salvador RN) * 1006 ([facility] Hold - Provider: Automatic Transfer Provider - Reason: Patient not available) * 1159 ([facility] Unhold - Provider: Automatic Transfer Provider) * 2036 (Given - Provider: Cleo Rizvi, BIPIN) * 0828 (Given - Provider: Ai Salvador, RN) * 2018 (Given - Provider: Meredith Voss, BIPIN) * 0825 (Given - Provider: Miranda Chiang, RN) * 2100 (Due) Medication Order/ lactated ringers infusion (CANCELED) 20 mL/hr, intravenous, Continuous, Starting on Gauri 11/26/23 at 1015, Pre-op, If fluid restriction is not indicated, infuse at a rate up to 5 mL/kg/hr not to exceed the total replacement volume (2 ml/kg/hr) from the time NPO status was initiated. * 1039 (New Bag - Provider: Mariela Ortiz RN) * 1050 (Paused - Provider: JAYSHREE Trevino - Comment: Switch to gravity) * 1051 (Restarted - Provider: JAYSHREE Trevino) * 1151 (Anesthesia Volume Adjustment - Provider: JAYSHREE Trevino) sodium chloride 0.9 % infusion () 100 mL/hr, intravenous, Continuous, Starting on 11/25/23 at 0315, For 1 day * 0006 (Stop Bag - Provider: Heidi Cortez RN) * 0006 (Stop Bag - Provider: Heidi Cortez RN) * 0007 (New Bag - Provider: Heidi Cortez RN) * 0007 (Rate/Dose Verify - Provider: Heidi Cortez RN) * 0531 (Stop Bag - Provider: Heidi Cortez RN) Medication Order/ calcium gluconate 3,000 mg in sodium chloride 0.9 % 100 mL IVPB 3,000 mg, intravenous, at 43.3 mL/hr, Administer over 3 Hours, As needed, ionized calcium 3.5 to 3.9 mg/dL, Starting on Thu11/25/23 at 0302, IV Administration of calcium via a central or deep vein preferred. Avoid administration in small hand veins VESICANT (RED) * 1006 ([facility] Hold - Provider: Automatic Transfer Provider - Reason: Patient not available) * 1159 ([facility] Unhold - Provider: Automatic Transfer Provider) calcium gluconate 4,000 mg in sodium chloride 0.9 % 250 mL IVPB 4,000 mg, intravenous, at 72.5 mL/hr, Administer over 4 Hours, As needed, ionized calcium 3.4 mg/dLor less, Starting on Thu11/25/23 at 0302, IV administration of calcium via a central or deep vein is preferred. Avoid administration in small hand veins. VESICANT (RED) * 1006 ([facility] Hold - Provider: Automatic Transfer Provider - Reason: Patient not available) * 1159 ([facility] Unhold - Provider: Automatic Transfer Provider) calcium gluconate IVPB 2000 mg/100 mL (20 mg/mL premix) 2,000 mg, intravenous, at 50 mL/hr, Administer over 2 Hours, As needed, ionized calcium 4 to 4.3 mg/dL, Starting on Thu11/25/23 at 0302, IV Administration of calcium via a central or deep vein preferred. Avoid administration in small hand veins VESICANT (RED) * 1006 ([facility] Hold - Provider: Automatic Transfer Provider - Reason: Patient not available) * 1159 ([facility] Unhold - Provider: Automatic Transfer Provider) dextrose (GLUTOSE) 40 % gel 15 g 15 g, oral, As needed, low blood sugar, blood glucose less than 70 mg/dL, Starting on Thu11/25/23 at 0256, If patient conscious and taking PO. If blood glucose is not greater than 70 mg/dL after initial treatment, repeat treatment. * 1006 ([facility] Hold - Provider: Automatic Transfer Provider - Reason: Patient not available) * 1159 ([facility] Unhold - Provider: Automatic Transfer Provider) dextrose 50 % in water (D50W) 50% solution 25 mL 25 mL, intravenous, As needed, low blood sugar, blood glucose less than 70 mg/dL and unconscious orNPO with IV access, Starting on Thu11/25/23 at 0256, Push over 1-3 minutes STAT. If conscious and not NPO, immediately follow with meal tray or high protein (7 grams) snack if tray not available. IfNPO, initiate 5% dextrose in water at 100 mL/hr and contact prescriber for additional orders. If blood glucose is not greater than 70 mg/dL after initial treatment, repeat treatment. VESICANT (RED) Warning: HYPERTONIC solution. * 1006 ([facility] Hold - Provider: Automatic Transfer Provider - Reason: Patient not available) * 1159 ([facility] Unhold - Provider: Automatic Transfer Provider) glucagon HCL injection 1 mg 1 mg, intramuscular, As needed, low blood sugar, blood glucose less than 70 mg/dL and unconscious or NPO without IV access., Starting on Thu11/25/23 at 0256, If conscious and not NPO, immediately follow with meal tray or high protein (7Grams) snack if tray not available. If NPO, initiate IV 5% Dext lindsey/Water at 100 mL/hr and contact prescriber for additional orders. If blood glucose is not greater than 70 mg/dL after initial treatment, repeat treatment. * 1006 ([facility] Hold - Provider: Automatic Transfer Provider - Reason: Patient not available) * 1159 ([facility] Unhold - Provider: Automatic Transfer Provider) HYDROmorphone (DILAUDID) injection 0.5 mg 0.5 mg, intravenous, Every 3 hours PRN, Breakthrough pain, Starting on Thu11/25/23 at 0304, If IV push, administer over over 2 to 3 minutes. Look-alike/sound-alike medication - verify indication foruse. * 1006 ([facility] - Provider: Automatic Transfer Provider - Reason: Patient not available) * 1159 ([facility] Unhold - Provider: Automatic Transfer Provider) indomethacin (INDOCIN) suppository (CANCELED) As needed, Starting on Thu11/26/23 at 1123, Intra-op * 1123 (Given - Provider: Florina Hays, BIPIN) iohexoL (OMNIPAQUE) 300 mg iodine/mL (CANCELED) As needed, Starting on Thu11/26/23 at 1123, Intra-op * 1123 (Given - Provider: Sara Ordaz RN) magnesium sulfate IVPB 2000 mg/50 mL in iso-osmotic water (40 mg/mL premix) 2,000 mg, intravenous, at 25 mL/hr, Administer over 120 Minutes, As needed, Magnesium level 1.7 to 1.9 mg/dL, or Ionized Magnesium level 0.45 to 0.5 mmol/L., Starting on Thu11/25/23 at 0257, Recheckmagnesium level 4 hours after infusion complete. With each magnesium result continue the replacement orders as needed. * 1006 ([facility] Hold - Provider: Automatic Transfer Provider - Reason: Patient not available) * 1159 ([facility] Unhold - Provider: Automatic Transfer Provider) * 1243 (New Bag - Provider: Ai Salvador, RN) * 1443 (Stop Bag - Provider: Ai Salvador, BIPIN) magnesium sulfate IVPB 4000 mg/100 mL in iso-osmotic water (40 mg/mL premix) 4,000 mg, intravenous, at 25 mL/hr, Administer over 240 Minutes, As needed, Magnesium level 1.6 mg/dL or less, or Ionized Magnesium level 0.44 mmol/L or less, Starting on Thu11/25/23 at 0257, Recheck magnesium level 4 hours after infusion complete. With each magnesium result continue the replacement orders as needed. * 1006 ([facility] Hold - Provider: Automatic Transfer Provider - Reason: Patient not available) * 1159 ([facility] Unhold - Provider: Automatic Transfer Provider) midazolam (PF) (VERSED) injection 2 mg (CANCELED) 2 mg, intravenous, As needed, anxiety, Starting on Gauri 11/26/23 at 1009, Pre-op, May repeat in 10 minutes, if needed, if original midazolam (VERSED) ineffective, Indication: Other, Indication: anxiety * 1047 (Given - Provider: Marilea Ortiz, BIPIN) ondansetron (PF) (ZOFRAN) injection 4 mg 4 mg, intravenous, Every 6 hours PRN, nausea, vomiting, Starting on Thu11/25/23 at 0302, Administer over 2-5 minutes. * 1006 ([facility] Hold - Provider: Automatic Transfer Provider - Reason: Patient not available) * 1159 ([facility] Unhold - Provider: Automatic Transfer Provider) * 1948 (Given - Provider: Meredith Voss RN) ondansetron (PF) (ZOFRAN) injection 4 mg (COMPLETED) 4 mg, intravenous, Once as needed, nausea, Starting on Gauri 11/26/23 at 1150, For 1 dose, PACU (only), Administer over 2-5 minutes. * 1237 (Given - Provider: Jing Alcazar RN) oxyCODONE (ROXICODONE) immediate release tablet 10 mg(Linked Group 1) 10 mg, oral, Every 6 hours PRN, severe pain - pain scale 7-10, Starting on Thu11/25/23 at 0304, Look-alike/sound-alike medication - verify indication for use. Immediate release. * 1006 ([facility] Hold - Provider: Automatic Transfer Provider - Reason: Patient not available) * 1159 ([facility] Unhold - Provider: Automatic Transfer Provider) * 2019 (Given - Provider: Meredith Voss RN) oxyCODONE (ROXICODONE) immediate release tablet 5 mg(Linked Group 1) 5 mg, oral, Every 6 hours PRN, moderate pain - pain scale 4-6, Starting on Thu11/25/23 at 0304, Look-alike/sound-alike medication - verify indication for use. Immediate release. * 1006 ([facility] Hold - Provider: Automatic Transfer Provider - Reason: Patient not available) * 1159 ([facility] Unhold - Provider: Automatic Transfer Provider) * 2019 (See Alternative - Provider: Meredith Voss RN) potassium chloride (K-TAB,KLOR-CON) CR tablet 30-40 mEq(Linked Group 2) 30-40 mEq, oral, As needed, potassium supplementation, Starting on Thu11/25/23 at 0257, Progress to oral potassium replacement when patient tolerating oral intake. If dose administered, recheck potassium level 4 hours after last dose. For potassium level 3.4 to 3.8 mmol/L and GFR 30 mL/min or greater=30 mEq. For potassium level 3.1 to 3.3 mmol/L and GFR 30 mL/min or greater=40 mEq. For potassiumlevel 3 mmol/L or less and GFR 30 mL/min or greater=50 mEq. Do not crush or chew. * 1006 ([facility] Hold - Provider: Automatic Transfer Provider - Reason: Patient not available) * 1159 ([facility] Unhold - Provider: Automatic Transfer Provider) * 0828 (Given - Provider: Ai Salvador RN) potassium chloride (KAYCIEL) 20 mEq/15 mL solution 30-40 mEq(Linked Group 2) 30-40 mEq, oral, As needed, potassium supplementation, Starting on Thu11/25/23 at 0257, Progress to oral potassium replacement when patient tolerating oral intake. If dose administered, recheck potassium level 4 hours after last dose. For potassium level 3.4 to 3.8 mmol/L and GFR 30 mL/min or greater=30 mEq. For potassium level 3.1 to 3.3 mmol/L and GFR 30 mL/min or greater=40 mEq. For potassiumlevel 3 mmol/L or less and GFR 30 mL/min or greater=50 mEq. Must dilute before use - Mix in 3-8 ounces of water or juice before administration When administering in feeding tube, flush before and after per policy and monitor potassium levels * 1006 ([facility] Hold - Provider: Automatic Transfer Provider - Reason: Patient not available) * 1159 ([facility] Unhold - Provider: Automatic Transfer Provider) * 0828 (See Alternative - Provider: Ai Salvador RN) sod phos di, mono-K phos mono (K-PHOS NEUTRAL) 250 mg tablet 2 tablet(Linked Group 3) 2 tablet, oral, As needed, for phosphorus level 2.3 mg/dL or less., Starting on Thu11/25/23 at 0302, If dose administered, recheck phosphorus level 4 hours after last dose. Look-alike/sound-alike medication - verify indication for use. Give with a full glass of water. * 1006 ([facility] Hold - Provider: Automatic Transfer Provider - Reason: Patient not available) * 1159 ([facility] Unhold - Provider: Automatic Transfer Provider) sodium chloride 0.9 % flush 3 mL 3 mL, intravenous, As needed, line care, before and after each intermittent use, Starting on Thu11/25/23 at 0255 * 1006 ([facility] Hold - Provider: Automatic Transfer Provider - Reason: Patient not available) * 1159 ([facility] Unhold - Provider: Automatic Transfer Provider) * 0327 (Given - Provider: Cleo Rizvi RN) sodium chloride 0.9 % flush bag 25 mL, intravenous, at 100 mL/hr, Administer over 15 Minutes, As needed, line care, line care afterIVPB administration, Starting on Thu11/25/23 at 0255 * 1006 ([facility] Hold - Provider: Automatic Transfer Provider - Reason: Patient not available) * 1159 ([facility] Unhold - Provider: Automatic Transfer Provider) sodium chloride 0.9 % infusion 20 mL/hr, intravenous, Continuous PRN, to maintain patency of lines, Starting on Thu11/25/23 at 0255 * 1006 ([facility] Hold - Provider: Automatic Transfer Provider - Reason: Patient not available) * 1159 ([facility] Unhold - Provider: Automatic Transfer Provider) * 0327 ([facility] - Provider: Cleo Rizvi RN) sodium phosphate 20 mmol in sodium chloride 0.9 % 100 mL IVPB(Linked Group 3) 20 mmol, intravenous, at 26.7 mL/hr, Administer over 4 Hours, As needed, for phosphorus level 2.3 mg/dL or less., Starting on Thu11/25/23 at 0302, Administer over 4 hours via dedicated line (centralline). If administered, recheck phosphorus level 4 hours after infusion complete. Infuse using central line access. * 1006 ([facility] Hold - Provider: Automatic Transfer Provider - Reason: Patient not available) * 1159 ([facility] Unhold - Provider: Automatic Transfer Provider) sodium phosphate 20 mmol in sodium chloride 0.9 % 250 mL IVPB(Linked Group 3) 20 mmol, intravenous, at 42.8 mL/hr, Administer over 6 Hours, As needed, for phosphorus level 2.3 mg/dL or less, Starting on Thu11/25/23 at 0302, Administer over 6 hours via dedicated line (peripheral line). If administered, recheck phosphorus level 4 hours after infusion complete. * 1006 ([facility] Hold - Provider: Automatic Transfer Provider - Reason: Patient not available) * 1159 ([facility] Unhold - Provider: Automatic Transfer Provider) SUMAtriptan (IMITREX) tablet 50 mg 50 mg, oral, Once as needed, migraine, Starting on Thu11/25/23 at 0254, May repeat dose once in 2 hours if no relief. Do not exceed 2 doses in 24 hours. Look-alike/sound-alike medication - verify indication for use. Look-alike/sound-alike medication - verify indication for use. * 1006 ([facility] Hold - Provider: Automatic Transfer Provider - Reason: Patient not available) * 1159 ([facility] Unhold - Provider: Automatic Transfer Provider) Order Group 1: oxyCODONE (ROXICODONE) immediate release tablet 5 mgJump to med 5 mg, oral, Every 6 hours PRN, moderate pain - pain scale 4-6, Starting on Thu11/25/23 at 0304, Look-alike/sound-alike medication - verify indication for use. Immediate release. Or oxyCODONE (ROXICODONE) immediate release tablet 10 mgJump to med 10 mg, oral, Every 6 hours PRN, severe pain - pain scale 7-10, Starting on Thu11/25/23 at 0304, Look-alike/sound-alike medication - verify indication for use. Immediate release. Group 2: potassium chloride (K-TAB,KLOR-CON) CR tablet 30-40 mEqJump to med 30-40 mEq, oral, As needed, potassium supplementation, Starting on Thu11/25/23 at 0257, Progress to oral potassium replacement when patient tolerating oral intake. If dose administered, recheck potassium level 4 hours after last dose. For potassium level 3.4 to 3.8 mmol/L and GFR 30 mL/min or greater=30 mEq. For potassium level 3.1 to 3.3 mmol/L and GFR 30 mL/min or greater=40 mEq. For potassiumlevel 3 mmol/L or less and GFR 30 mL/min or greater=50 mEq. Do not crush or chew. Or potassium chloride (KAYCIEL) 20 mEq/15 mL solution 30-40 mEqJump to med 30-40 mEq, oral, As needed, potassium supplementation, Starting on Thu11/25/23 at 0257, Progress to oral potassium replacement when patient tolerating oral intake. If dose administered, recheck potassium level 4 hours after last dose. For potassium level 3.4 to 3.8 mmol/L and GFR 30 mL/min or greater=30 mEq. For potassium level 3.1 to 3.3 mmol/L and GFR 30 mL/min or greater=40 mEq. For potassiumlevel 3 mmol/L or less and GFR 30 mL/min or greater=50 mEq. Must dilute before use - Mix in 3-8 ounces of water or juice before administration When administering in feeding tube, flush before and after per policy and monitor potassium levels Group 3: sodium phosphate 20 mmol in sodium chloride 0.9 % 250 mL IVPBJump to med 20 mmol, intravenous, at 42.8 mL/hr, Administer over 6 Hours, As needed, for phosphorus level 2.3 mg/dL or less, Starting on Thu11/25/23 at 0302, Administer over 6 hours via dedicated line (peripheral line). If administered, recheck phosphorus level 4 hours after infusion complete. Or sodium phosphate 20 mmol in sodium chloride 0.9 % 100 mL IVPBJump to med 20 mmol, intravenous, at 26.7 mL/hr, Administer over 4 Hours, As needed, for phosphorus level 2.3 mg/dL or less., Starting on Thu11/25/23 at 0302, Administer over 4 hours via dedicated line (centralline). If administered, recheck phosphorus level 4 hours after infusion complete. Infuse using central line access. Or sod phos di, mono-K phos mono (K-PHOS NEUTRAL) 250 mg tablet 2 tabletJump to med 2 tablet, oral, As needed, for phosphorus level 2.3 mg/dL or less., Starting on Thu11/25/23 at 0302, If dose administered, recheck phosphorus level 4 hours after last dose. Look-alike/sound-alike medication - verify indication for use. Give with a full glass of water. Goals (unrecognized section and content) Goals may be documented in a n alternate section FOR RECORDS PERTAINING TO PATIENTS WHO ARE OR HAVE BEEN ENROLLED IN A CHEMICAL DEPENDENCY/SUBSTANCEABUSE PROGRAM, SOME INFORMATION MAY BE OMITTED. This clinical summary was aggregated from multiple sources. Caution should be exercised in using it in the provision of clinical care. This summary normalizes information from multiple sources, and as a consequence, information in this document may materially change the coding, format and clinical context of patient data. In addition, data may be omitted in some cases. CLINICAL DECISIONS SHOULD BE BASED ON THE PRIMARY CLINICAL RECORDS. [employer] [facility] provides no warranty or guarantee of the accuracy or completeness of information in this document.
== END 2024-12-07 12:04 | disposition home or self-care (01) ==
LOC: LAB 12:07
PROVIDERS: PCP Family Medicine; Visit Provider Family Medicine
DX: E11.65 Type 2 diabetes mellitus with hyperglycemia (principal)
CPT/HCPCS: 36415; 83036